=== PATIENT | female | born 1970 | race Caucasian/White ===

== ENCOUNTER 2018-11-12 10:18 | Emergency (ER) | payer MEDICARE ==
[2018-11-12 10:28] VITALS: TEMP 97.7
[2018-11-12] MEDS ORDERED: MORPHINE SULFATE 4 MG/ML SYRINGE IV STA (11:31)
[2018-11-12] MEDS ORDERED: SODIUM CHLORIDE 0.9% 1,000 ML IV STA (11:31)
[2018-11-12] MEDS ORDERED: ONDANSETRON 4 MG/2 ML VIAL IVP STA ×2 (11:31→13:25)
--- NOTE | 2018-11-12 11:51 | ED ---
General Adult HPI - General Chief complaint: Abdominal Pain Stated complaint: Blood in urine Time Seen by Provider: 11/12/18 11:00 Source: patient, family, RN notes reviewed Mode of arrival: ambulatory Limitations: no limitations - History of Present Illness Initial comments: Patient is a 48-year-old female presented to the emergency room today with chief complaint hematuria. Patient does not that last night she noticed some blood in her urine. Patient states that today when she woke up she urinated and saw blood possibly again. She does admit that when she's been ambulation of his increased pressure in the lower pelvis. Patient states when she is laying down she is relatively comfortable. She denies any other complaints or symptoms. Patient denies any recent fever, chills, shortness of breath, chest pain, back pain, nausea or vomiting,headaches or visual changes, or any other complaints. - Related Data Previous Rx's Medication Instructions Recorded Sulfamethox-Tmp 800-160Mg [Bactrim 1 tab PO Q12HR #20 tab 11/12/18 DS 800-160 mg] Allergies Allergy/AdvReac Type Severity Reaction Status Date / Time buprenorphine [From Suboxone] Allergy Swelling Verified 11/12/18 10:29 duloxetine [From Cymbalta] Allergy Confusion Verified 11/12/18 10:29 naloxone [From Suboxone] Allergy Swelling Verified 11/12/18 10:29 NSAIDS (Non-Steroidal Allergy Unknown Verified 11/12/18 10:23 Anti-Inflamma Childhood Review of Systems ROS Statement: Those systems with pertinent positive or pertinent negative responses have been documented in the HPI. ROS Other: All systems not noted in ROS Statement are negative. Past Medical History Past Medical History: Diabetes Mellitus Additional Past Medical History / Comment(s): bowel obstruction, kidney stones History of Any Multi-Drug Resistant Organisms: None Reported Past Surgical History: Back Surgery, Bladder Surgery, Section, Cholecystectomy, Hernia Repair, Orthopedic Surgery Past Psychological History: No Psychological Hx Reported Smoking Status: Current every day smoker Past Alcohol Use History: None Reported Past Drug Use History: None Reported General Exam - General Exam Comments Initial Comments: General: The patient is awake and alert, in no distress, and does not appear acutely ill. Eye: There is normal conjunctiva bilaterally. No signs of icterus. Ears, nose, mouth and throat: There are moist mucous membranes and no oral lesions. Neck: The neck is supple, there is no tenderness or JVD. Cardiovascular: There is a regular rate and rhythm. No murmur, rub or gallop is appreciated. Respiratory: Lungs are clear to auscultation, respirations are non-labored, breath sounds are equal. No wheezes, stridor, rales, or rhonchi. Gastrointestinal: Admits soft on palpation. Patient does have tenderness lower abdomen both left and right lower quadrant. No rebound, guarding or CVA tenderness. Musculoskeletal: Normal ROM, no tenderness. Strength 5/5. Sensation intact. Neurological: A&O x 3. CN II-XII intact, There are no obvious motor or sensory deficits. Coordination appears grossly intact. Speech is normal. Skin: Skin is warm and dry and no rashes or lesions are noted. Psychiatric: Cooperative, appropriate mood & affect, normal judgment. Limitations: no limitations Course Vital Signs 11/12/18 11/12/18 11/12/18 10:23 11:54 13:54 Temperature 97.7 F Pulse Rate 89 79 82 Respiratory 16 18 16 Rate Blood Pressure 151/90 147/78 186/100 O2 Sat by Pulse 98 97 95 Oximetry Medical Decision Making - Medical Decision Making Patient's labs been reviewed here the emergency room and does show evidence for urinary tract infection. Her CT the abdomen pelvis was reviewed and does show: "No evidence of obstruction uropathy. A tiny nonobstructive left renal calculus. Tiny focus of air in the anterior urinary bladder which may be related to her recent insurance mentation or urinary tract infection. Multiple anterior abdominal wall hernias containing loops of small large bowel and intraperitoneal fat." As read by radiologist. Results were discussed with the patient. Given dose Rocephin here in emergency room. Case discussed with attending physician Dr. Aguayo. Patient will be discharged home advised follow-up family doctor over the next 2 days. Advised return here to emergency room if any symptoms increase worsen or for any other concerns. - Lab Data Result diagrams: 11/12/18 11:40 11/12/18 11:40 Lab Results 11/12/18 11/12/18 11/12/18 Range/Units 11:00 11:40 11:40 WBC 11.1 H (3.8-10.6) k/uL RBC 5.08 (3.80-5.40) m/uL Hgb 14.4 (11.4-16.0) gm/dL Hct 43.8 (34.0-46.0) % MCV 86.3 (80.0-100.0) fL MCH 28.4 (25.0-35.0) pg MCHC 32.9 (31.0-37.0) g/dL RDW 13.0 (11.5-15.5) % Plt Count 189 (150-450) k/uL Neutrophils % 79 % Lymphocytes % 16 % Monocytes % 3 % Eosinophils % 1 % Basophils % 0 % Neutrophils # 8.8 H (1.3-7.7) k/uL Lymphocytes # 1.8 (1.0-4.8) k/uL Monocytes # 0.3 (0-1.0) k/uL Eosinophils # 0.2 (0-0.7) k/uL Basophils # 0.0 (0-0.2) k/uL Sodium 140 (137-145) mmol/L Potassium 4.1 (3.5-5.1) mmol/L Chloride 109 H (98-107) mmol/L Carbon Dioxide 21 L (22-30) mmol/L Anion Gap 10 mmol/L BUN 11 (7-17) mg/dL Creatinine 0.36 L (0.52-1.04) mg/dL Est GFR (CKD-EPI)AfAm >90 (>60 ml/min/1.73 sqM) Est GFR (CKD-EPI)NonAf >90 (>60 ml/min/1.73 sqM) Glucose 171 H (74-99) mg/dL Calcium 9.2 (8.4-10.2) mg/dL Total Bilirubin 0.4 (0.2-1.3) mg/dL AST 22 (14-36) U/L ALT 21 (9-52) U/L Alkaline Phosphatase 118 (38-126) U/L Total Protein 6.5 (6.3-8.2) g/dL Albumin 3.9 (3.5-5.0) g/dL Amylase 64 (30-110) U/L Lipase 59 (23-300) U/L Urine Color Light Red Urine Appearance Cloudy H (Clear) Urine pH 6.0 (5.0-8.0) Ur Specific [place] 1.012 (1.001-1.035) Urine Protein 1+ H (Negative) Urine Glucose (UA) Negative (Negative) Urine Ketones Negative (Negative) Urine Blood Large H (Negative) Urine Nitrite Negative (Negative) Urine Bilirubin Negative (Negative) Urine Urobilinogen <2.0 (<2.0) mg/dL Ur Leukocyte Esterase Moderate H (Negative) Urine RBC >182 H (0-5) /hpf Urine WBC 51 H (0-5) /hpf Ur Squamous Epith Cells 4 (0-4) /hpf Urine Bacteria Rare H (None) /hpf Urine Mucus Rare H (None) /hpf Disposition Clinical Impression: UTI (urinary tract infection), Abdominal pain Disposition: HOME SELF-CARE Condition: Good Instructions (If sedation given, give patient instructions): Abdominal Pain (ED) Additional Instructions: Please use medication as discussed. Please follow-up with family doctor in the next 2 days of symptoms have not improved. Please return to emergency room if the symptoms increase or worsen or for any other concerns. Prescriptions: Sulfamethox-Tmp 800-160Mg [Bactrim DS 800-160 mg] 1 tab PO Q12HR #20 tab Is patient prescribed a controlled substance at d/c from ED?: No Referrals: Nonstaff,Physician [Primary Care Provider] - 1-2 days Isaura Jean Baptiste MD [STAFF PHYSICIAN] - 1-2 days Time of Disposition: 14:33
[2018-11-12 11:54] LABS: Appearance,Urine Cloudy (Clear); Bacteria,Urine Rare /hpf; Bilirubin,Urine Negative (Negative); Blood,Urine Large (Negative); Color,Urine Light Red; Glucose,Urine (UA) Negative (Negative); Ketones,Urine Negative (Negative); Leukocyte Esterase,Urine Moderate (Negative); Mucus,Urine Rare /hpf; Nitrite,Urine Negative (Negative); Protein,Urine 1+ (Negative); RBC,Urine >182 /hpf (0-5); Specific Gravity,Urine 1.012 (1.001-1.035); Squamous Epithelial Cell,Urine 4 /hpf (0-4); Urobilinogen,Urine <2.0 mg/dL (<2.0); WBC,Urine 51 /hpf (0-5)
[2018-11-12 12:00] LABS: ALT 21 U/L (9-52); AST 22 U/L (14-36); African American GFR (CKD) >90 (>60 ml/min/1.73 sqM); Albumin 3.9 g/dL (3.5-5.0); Alkaline Phosphatase 118 U/L (38-126); Amylase 64 U/L (30-110); Anion Gap 10 mmol/L; Blood Urea Nitrogen 11 mg/dL (7-17); Calcium 9.2 mg/dL (8.4-10.2); Carbon Dioxide 21 mmol/L (22-30); Chloride 109 mmol/L (98-107); Glucose 171 mg/dL (74-99); Potassium 4.1 mmol/L (3.5-5.1); Sodium 140 mmol/L (137-145); Total Bilirubin 0.4 mg/dL (0.2-1.3); Total Protein 6.5 g/dL (6.3-8.2)
[2018-11-12 12:04] LABS: Basophils % (A) 0 %; Eosinophils # (A) 0.2 k/uL (0-0.7); Eosinophils % (A) 1 %; HCT 43.8 % (34.0-46.0); HGB 14.4 gm/dL (11.4-16.0); Lymphocytes # (A) 1.8 k/uL (1.0-4.8); Lymphocytes % (A) 16 %; MCH 28.4 pg (25.0-35.0); MCHC 32.9 g/dL (31.0-37.0); MCV 86.3 fL (80.0-100.0); Mean Platelet Volume 7.7; Monocytes # (A) 0.3 k/uL (0-1.0); Monocytes % (A) 3 %; Neutrophils # (A) 8.8 k/uL (1.3-7.7); Neutrophils % (A) 79 %; Platelet Count 189 k/uL (150-450); RBC 5.08 m/uL (3.80-5.40); WBC 11.1 k/uL (3.8-10.6)
--- NOTE | 2018-11-12 13:05 | CT ---
EXAMINATION TYPE: CT abdomen pelvis wo con DATE OF EXAM: 11/12/2018 COMPARISON: None HISTORY: Abdominal pain and hematuria. CT DLP: 725.5 mGycm Automated exposure control for dose reduction was used. TECHNIQUE: Helical acquisition of images was performed from the lung bases through the pelvis. FINDINGS: LUNG BASES: Subsegmental bibasilar consolidation. No pleural effusion. LIVER/GB: No significant abnormality is appreciated. Gallbladder is surgically absent. PANCREAS: No significant abnormality is seen. SPLEEN: No significant abnormality is seen. ADRENALS: Fat density left adrenal gland nodule measuring 1.6 cm suggestive of adrenal adenoma. KIDNEYS: No hydronephrosis. No renal edema or perinephric stranding. A few punctate calcifications ar e seen in the left kidney with the largest seen in the inferior pole on axial image 59. FREE AIR: No free air is visualized RETROPERITONEAL ADENOPATHY: None visualized REPRODUCTIVE ORGANS: Uterus appears absent with a few areas of calcification in the right adnexa, whi ch may be postsurgical or atrophied ovary. URINARY BLADDER: Tiny focus of air is seen at the anterior urinary bladder on axial image 126. PELVIC ADENOPATHY: None visualized. OSSEOUS STRUCTURES: L4-5 and L5-S1 lumbar spondylosis. No acute compression deformity. BOWEL: No significant abnormality is seen. OTHER: Ventral midline appear midline abdominal wall hernias containing intraperitoneal fat, transver se colon and small bowel with the largest seen to the right measuring 2.5 x 9.9 x 6.6 cm in AP by tra nsverse dimension. IMPRESSION: NO EVIDENCE OF OBSTRUCTIVE UROPATHY. TINY NONOBSTRUCTIVE LEFT RENAL CALCULUS. TINY FOCUS OF AIR IN THE ANTERIOR URINARY BLADDER WHICH MAY BE RELATED TO RECENT INSTRUMENTATION OR U RINARY TRACT INFECTION. MULTIPLE ANTERIOR ABDOMINAL WALL HERNIAS CONTAINING LOOPS OF THE SMALL AND LARGE BOWEL AND INTRAPERIT ROJO FAT.
[2018-11-12] MEDS ORDERED: cefTRIAXone IN SWFI 1,000 MG/10 ML SYRINGE IVP STA (14:27)
[2018-11-12 15:02] VITALS: RESP 18
[2018-11-12 15:42] VITALS: BP 140/74; PULSE 75
== END 2018-11-12 15:42 | disposition home or self-care (01) ==
LOC: EC 10:18
DX: N39.0 Urinary tract infection, site not specified (principal); N20.0 Calculus of kidney; K46.9 Unspecified abdominal hernia without obstruction or gangrene; F17.200 Nicotine dependence, unspecified, uncomplicated; Z88.5 Allergy status to narcotic agent; Z88.6 Allergy status to analgesic agent; Z88.8 Allergy status to other drugs, medicaments and biological substances; Z98.890 Other specified postprocedural states
CPT/HCPCS: 36415; 80053; 82150; 83690; 85025; 81001; 74176; 99284; 96374; 96375 ×2; 96376; 96361 ×3; J2270; J2405; J0696

== ENCOUNTER 2018-11-18 14:44 | Emergency (ER) | payer MEDICARE ==
[2018-11-18 14:49] VITALS: RESP 18
[2018-11-18] MEDS ORDERED: ONDANSETRON 4 MG/2 ML VIAL IVP STA (16:08)
[2018-11-18] MEDS ORDERED: SODIUM CHLORIDE 0.9% 1,000 ML IV STA (16:08)
[2018-11-18] MEDS ORDERED: MAG HYDROX/AL HYDROX/SIMETH 30 ML, HYOSCYAMINE ELIXIR 10 ML, CIMETIDINE HCL 300 MG, LID... PO STA ×4 (16:09)
[2018-11-18 16:28] LABS: Appearance,Urine Clear (Clear); Bilirubin,Urine Negative (Negative); Blood,Urine Negative (Negative); Color,Urine Light Yellow; Glucose,Urine (UA) Negative (Negative); Ketones,Urine Negative (Negative); Leukocyte Esterase,Urine Negative (Negative); Nitrite,Urine Negative (Negative); PH, Urine 5.5 (5.0-8.0); Protein,Urine Negative (Negative); Specific Gravity,Urine 1.007 (1.001-1.035); Urobilinogen,Urine <2.0 mg/dL (<2.0)
--- NOTE | 2018-11-18 16:29 | ED ---
General Adult HPI - General Chief complaint: Abdominal Pain Stated complaint: Abdominal pain, back pain Time Seen by Provider: 11/18/18 15:51 Source: patient, RN notes reviewed, old records reviewed Mode of arrival: wheelchair Limitations: no limitations - History of Present Illness Initial comments: 48-year-old female patient presents ED chief complaint of epigastric abdominal pain. Patient was initially seen on 11/12 for hematuria which she had a CT ab domen and pelvis which displayed possible urinary tract infection, multiple abdominal wall hernias, nonobstructive left renal calculi. Patient reports that she was seen by urology today and recommended presentation to ER. Patient reports that she is concerned that pain in the epigastric region. Patient port that she has had GERD in the past. Denies any history of pancreatitis. Denies any recent alcohol intake. Patient does report nausea without emesis. States that she cannot be . Denies any chest pain or shortness of breath. Patient is status post cholecystectomy. Systemic: Pt denies fatigue, fever/chills, rash. Pt denies weakness, night sweats, weight loss. Neuro: Pt denies headache, visual disturbances, syncope or pre-syncope. HEENT: Pt denies ocular discharge or irritation, otalgia, rhinorrhea, pharyngitis or notable lymphadenopathy. Cardiopulmonary: Pt denies chest pain, SOB, heart palpitations, dyspnea on exertion. Abdominal/GI: Pt denies n/v/d. : Pt denies dysuria, burning w/ urination, frequency/urgency. Denies new onset urinary or bowel incontinence. MSK: Pt denies myalgia, loss of strength or function in extremities. Neuro: Pt denies new onset weakness, paresthesias. - Related Data Previous Rx's Medication Instructions Recorded Sulfamethox-Tmp 800-160Mg [Bactrim 1 tab PO Q12HR #20 tab 11/12/18 DS 800-160 mg] Pantoprazole Sodium [Protonix] 20 mg PO Q24HR 14 Days #14 11/18/18 tablet. Allergies Allergy/AdvReac Type Severity Reaction Status Date / Time buprenorphine [From Suboxone] Allergy Swelling Verified 11/18/18 14:49 duloxetine [From Cymbalta] Allergy Confusion Verified 11/18/18 14:49 naloxone [From Suboxone] Allergy Swelling Verified 11/18/18 14:49 NSAIDS (Non-Steroidal Allergy Unknown Verified 11/18/18 14:49 Anti-Inflamma Childhood Review of Systems ROS Statement: Those systems with pertinent positive or pertinent negative responses have been documented in the HPI. ROS Other: All systems not noted in ROS Statement are negative. Past Medical History Past Medical History: Diabetes Mellitus Additional Past Medical History / Comment(s): bowel obstruction, kidney stones History of Any Multi-Drug Resistant Organisms: None Reported Past Surgical History: Back Surgery, Bladder Surgery, Section, Cholecystectomy, Hernia Repair, Orthopedic Surgery Past Psychological History: No Psychological Hx Reported Smoking Status: Current every day smoker Past Alcohol Use History: None Reported Past Drug Use History: None Reported General Exam - General Exam Comments Initial Comments: Constitutional: NAD, AOX3, Pt has pleasant affect. HEENT: NC/AT, trachea midline, neck supple, no lymphadenopathy. Posterior pharynx non erythematous, without exudates. External ears appear normal, without discharge. Mucous membranes moist. Eyes PERRLA, EOM intact. There is no scleral icterus. No pallor noted. Cardiopulmonary: RRR, no murmurs, rubs or gallops, no JVD noted. Lungs CTAB in anterior and posterior pimentel. No peripheral edema. Abdominal exam: Abdomen soft and non-distended. Abdomen tender to palpation epigastric region, no other areas of abdominal tenderness. Bowel sounds active in LLQ. No hepatosplenomegaly. No ecchymosis Neuro: CN II-XII grossly intact. No nuchal rigidity. No raccon eyes, no tamayo sign, no hemotympanum. No cervical spinal tenderness. MSK: No posterior calf tenderness bilaterally, homans sign negative bilaterally. Posterior tibialis and radial pulse +2 bilaterally. Sensation intact in upper and lower extremities. Full active ROM in upper and lower extremities, 5/5 stregnth. Limitations: no limitations Course Vital Signs 11/18/18 11/18/18 14:46 17:42 Temperature 97.9 F 98.1 F Pulse Rate 88 63 Respiratory 18 18 Rate Blood Pressure 188/81 104/70 O2 Sat by Pulse 99 100 Oximetry Medical Decision Making - Medical Decision Making 48-year-old female patient presents ED chief complaint of epigastric abdominal pain. Patient was initially seen on 11/12 for hematuria which she had a CT abdomen and pelvis which displayed possible urinary tract infection, multiple abdominal wall hernias, nonobstructive left renal calculi. Patient reports that she was seen by urology today and recommended presentation to ER. Patient reports that she is concerned that pain in the epigastric region. Patient port that she has had GERD in the past. Denies any history of pancreatitis. Denies any recent alcohol intake. Patient does report nausea without emesis. States that she cannot be . Denies any chest pain or shortness of breath. Patient is status post cholecystectomy. Patient vital signs stable, afebrile. Physical exam displayed: Abdomen soft and non-distended. Abdomen tender to palpation epigastric region, no other areas of abdominal tenderness. Bowel sounds active in LLQ. No hepatosplenomegaly. No ecchymosis. Laboratory investigations noncompressive. KUB did not display acute process. Patient minimal improvement GI cocktail, this point repeat CT was offered, patient was advised by risk radiation, patient was understanding, CT abdomen and pelvis was performed and did not display acute process patient including gastritis. Gertrude ent will be discharged with Protonix, GI consult. Case discussed with Dr. Strickland. - Lab Data Result diagrams: 11/18/18 16:25 11/18/18 16:25 Lab Results 11/18/18 11/18/18 11/18/18 Range/Units 16:16 16:25 16:25 WBC 10.9 H (3.8-10.6) k/uL RBC 5.17 (3.80-5.40) m/uL Hgb 14.6 (11.4-16.0) gm/dL Hct 44.1 (34.0-46.0) % MCV 85.3 (80.0-100.0) fL MCH 28.3 (25.0-35.0) pg MCHC 33.2 (31.0-37.0) g/dL RDW 13.2 (11.5-15.5) % Plt Count 235 (150-450) k/uL Neutrophils % 71 % Lymphocytes % 23 % Monocytes % 3 % Eosinophils % 2 % Basophils % 1 % Neutrophils # 7.7 (1.3-7.7) k/uL Lymphocytes # 2.5 (1.0-4.8) k/uL Monocytes # 0.3 (0-1.0) k/uL Eosinophils # 0.2 (0-0.7) k/uL Basophils # 0.1 (0-0.2) k/uL Sodium 137 (137-145) mmol/L Potassium 4.8 (3.5-5.1) mmol/L Chloride 106 (98-107) mmol/L Carbon Dioxide 21 L (22-30) mmol/L Anion Gap 10 mmol/L BUN 13 (7-17) mg/dL Creatinine 0.47 L (0.52-1.04) mg/dL Est GFR (CKD-EPI)AfAm >90 (>60 ml/min/1.73 sqM) Est GFR (CKD-EPI)NonAf >90 (>60 ml/min/1.73 sqM) Glucose 128 H (74-99) mg/dL Plasma Lactic Acid Niels (0.7-2.0) mmol/L Calcium 10.4 H (8.4-10.2) mg/dL Total Bilirubin 0.2 (0.2-1.3) mg/dL AST 22 (14-36) U/L ALT 25 (9-52) U/L Alkaline Phosphatase 148 H (38-126) U/L Total Protein 7.6 (6.3-8.2) g/dL Albumin 4.5 (3.5-5.0) g/dL Lipase 75 (23-300) U/L Urine Color Light Yellow Urine Appearance Clear (Clear) Urine pH 5.5 (5.0-8.0) Ur Specific [place] 1.007 (1.001-1.035) Urine Protein Negative (Negative) Urine Glucose (UA) Negative (Negative) Urine Ketones Negative (Negative) Urine Blood Negative (Negative) Urine Nitrite Negative (Negative) Urine Bilirubin Negative (Negative) Urine Urobilinogen <2.0 (<2.0) mg/dL Ur Leukocyte Esterase Negative (Negative) 11/18/18 Range/Units 16:25 WBC (3.8-10.6) k/uL RBC (3.80-5.40) m/uL Hgb (11.4-16.0) gm/dL Hct (34.0-46.0) % MCV (80.0-100.0) fL MCH (25.0-35.0) pg MCHC (31.0-37.0) g/dL RDW (11.5-15.5) % Plt Count (150-450) k/uL Neutrophils % % Lymphocytes % % Monocytes % % Eosinophils % % Basophils % % Neutrophils # (1.3-7.7) k/uL Lymphocytes # (1.0-4.8) k/uL Monocytes # (0-1.0) k/uL Eosinophils # (0-0.7) k/uL Basophils # (0-0.2) k/uL Sodium (137-145) mmol/L Potassium (3.5-5.1) mmol/L Chloride (98-107) mmol/L Carbon Dioxide (22-30) mmol/L Anion Gap mmol/L BUN (7-17) mg/dL Creatinine (0.52-1.04) mg/dL Est GFR (CKD-EPI)AfAm (>60 ml/min/1.73 sqM) Est GFR (CKD-EPI)NonAf (>60 ml/min/1.73 sqM) Glucose (74-99) mg/dL Plasma Lactic Acid Niels 1.8 (0.7-2.0) mmol/L Calcium (8.4-10.2) mg/dL Total Bilirubin (0.2-1.3) mg/dL AST (14-36) U/L ALT (9-52) U/L Alkaline Phosphatase (38-126) U/L Total Protein (6.3-8.2) g/dL Albumin (3.5-5.0) g/dL Lipase (23-300) U/L Urine Color Urine Appearance (Clear) Urine pH (5.0-8.0) Ur Specific [place] (1.001-1.035) Urine Protein (Negative) Urine Glucose (UA) (Negative) Urine Ketones (Negative) Urine Blood (Negative) Urine Nitrite (Negative) Urine Bilirubin (Negative) Urine Urobilinogen (<2.0) mg/dL Ur Leukocyte Esterase (Negative) Disposition Clinical Impression: Gastritis, Abdominal pain Disposition: HOME SELF-CARE Condition: Stable Instructions (If sedation given, give patient instructions): Abdominal Pain (ED), Gastritis (ED) Additional Instructions: Patient to adhere to previously discussed treatment plan and will take medication(s) as directed. Patient to follow up with PCP in 1-2 days. Patient to return to ED if symptoms do not improve. follow-up with primary care provider and GI consult tomorrow. Return to ER if condition worsens. Take medication as prescribed. Prescriptions: Pantoprazole Sodium [Protonix] 20 mg PO Q24HR 14 Days #14 tablet.dr Is patient prescribed a controlled substance at d/c from ED?: No Referrals: Isaura Jean Baptiste MD [Primary Care Provider] - 1-2 days Mellissa Patricia MD [STAFF PHYSICIAN] - 1-2 days
[2018-11-18 16:47] LABS: Basophils # (A) 0.1 k/uL (0-0.2); Basophils % (A) 1 %; Eosinophils # (A) 0.2 k/uL (0-0.7); Eosinophils % (A) 2 %; HCT 44.1 % (34.0-46.0); HGB 14.6 gm/dL (11.4-16.0); Lymphocytes # (A) 2.5 k/uL (1.0-4.8); Lymphocytes % (A) 23 %; MCH 28.3 pg (25.0-35.0); MCHC 33.2 g/dL (31.0-37.0); MCV 85.3 fL (80.0-100.0); Mean Platelet Volume 7.8; Monocytes # (A) 0.3 k/uL (0-1.0); Monocytes % (A) 3 %; Neutrophils # (A) 7.7 k/uL (1.3-7.7); Neutrophils % (A) 71 %; Platelet Count 235 k/uL (150-450); RBC 5.17 m/uL (3.80-5.40); RDW 13.2 % (11.5-15.5); WBC 10.9 k/uL (3.8-10.6)
[2018-11-18 16:53] LABS: ALT 25 U/L (9-52); AST 22 U/L (14-36); African American GFR (CKD) >90 (>60 ml/min/1.73 sqM); Albumin 4.5 g/dL (3.5-5.0); Alkaline Phosphatase 148 U/L (38-126); Anion Gap 10 mmol/L; Blood Urea Nitrogen 13 mg/dL (7-17); Calcium 10.4 mg/dL (8.4-10.2); Carbon Dioxide 21 mmol/L (22-30); Chloride 106 mmol/L (98-107); Glucose 128 mg/dL (74-99); Potassium 4.8 mmol/L (3.5-5.1); Sodium 137 mmol/L (137-145); Total Bilirubin 0.2 mg/dL (0.2-1.3); Total Protein 7.6 g/dL (6.3-8.2)
--- NOTE | 2018-11-18 17:11 | XR ---
EXAMINATION TYPE: XR KUB DATE OF EXAM: 11/18/2018 COMPARISON: NONE HISTORY: Abdominal pain TECHNIQUE: 2 views upright FINDINGS: There is no sign of intestinal obstruction or pneumoperitoneum. Fecal pattern is normal. Th ere are clips from cholecystectomy. There is no sign of a mass. IMPRESSION: Nonacute abdomen.
--- NOTE | 2018-11-18 18:14 | CT ---
EXAMINATION TYPE: CT abdomen pelvis w con DATE OF EXAM: 11/18/2018 COMPARISON: 11/12/2018 HISTORY: Mid to right sided abd and flank pain. Nausea, vomiting and diarrhea. CT DLP: 1452.5 mGycm Automated exposure control for dose reduction was used. TECHNIQUE: Helical acquisition of images was performed from the lung bases through the pelvis. CONTRAST: Performed without Oral Contrast and with IV Contrast, patient injected with 100 mL of Isovue 300. FINDINGS: There is mild interstitial infiltrate and atelectasis at the posterior lung bases. Stomach appears no rmal. Heart size is normal. Liver spleen pancreas appear normal. There are clips from cholecystectomy. Bile ducts are not dilated . There is some thickening of the right adrenal gland. Kidneys show satisfactory contrast opacificati on. There is no hydronephrosis. There is 1.5 cm cortical cyst lateral right kidney. Abdominal aorta i s atheromatous. There is broad-based ventral hernia that contains transverse colon. There is no incar ceration. There is a second midline ventral abdominal wall hernia that contains small bowel. No obstr uction. Bladder distends smoothly. There is no inguinal hernia. There is no free fluid in the pelvis. Appendi x appears normal. There is no mesenteric edema. There is no ascites or free air. There is degenerative disc space narro wing at L4-5 with osteosclerosis. I see no bony destructive process. Bony pelvis appears intact. Ther e is L5-S1 posterior lumbar disc herniation. There is posterior L4-5 lumbar disc herniation on the le ft side. IMPRESSION: VENTRAL ANTERIOR ABDOMINAL WALL HERNIAS. NO CHANGE. NO BOWEL OBSTRUCTION. ATHEROSCLEROTIC VASCULAR DI SEASE. NORMAL APPENDIX. SUBSEGMENTAL ATELECTASIS AT THE LUNG BASES IMPROVED COMPARED TO LAST EXAM.
--- NOTE | 2018-11-18 18:47 | ED ---
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 Return precautions discussed. - Lab Data Result diagrams: 11/18/18 16:25 11/18/18 16:25 Lab Results 11/18/18 11/18/18 11/18/18 Range/Units 16:16 16:25 16:25 WBC 10.9 H (3.8-10.6) k/uL RBC 5.17 (3.80-5.40) m/uL Hgb 14.6 (11.4-16.0) gm/dL Hct 44.1 (34.0-46.0) % MCV 85.3 (80.0-100.0) fL MCH 28.3 (25.0-35.0) pg MCHC 33.2 (31.0-37.0) g/dL RDW 13.2 (11.5-15.5) % Plt Count 235 (150-450) k/uL Neutrophils % 71 % Lymphocytes % 23 % Monocytes % 3 % Eosinophils % 2 % Basophils % 1 % Neutrophils # 7.7 (1.3-7.7) k/uL Lymphocytes # 2.5 (1.0-4.8) k/uL Monocytes # 0.3 (0-1.0) k/uL Eosinophils # 0.2 (0-0.7) k/uL Basophils # 0.1 (0-0.2) k/uL Sodium 137 (137-145) mmol/L Potassium 4.8 (3.5-5.1) mmol/L Chloride 106 (98-107) mmol/L Carbon Dioxide 21 L (22-30) mmol/L Anion Gap 10 mmol/L BUN 13 (7-17) mg/dL Creatinine 0.47 L (0.52-1.04) mg/dL Est GFR (CKD-EPI)AfAm >90 (>60 ml/min/1.73 sqM) Est GFR (CKD-EPI)NonAf >90 (>60 ml/min/1.73 sqM) Glucose 128 H (74-99) mg/dL Plasma Lactic Acid Niels (0.7-2.0) mmol/L Calcium 10.4 H (8.4-10.2) mg/dL Total Bilirubin 0.2 (0.2-1.3) mg/dL AST 22 (14-36) U/L ALT 25 (9-52) U/L Alkaline Phosphatase 148 H (38-126) U/L Total Protein 7.6 (6.3-8.2) g/dL Albumin 4.5 (3.5-5.0) g/dL Lipase 75 (23-300) U/L Urine Color Light Yellow Urine Appearance Clear (Clear) Urine pH 5.5 (5.0-8.0) Ur Specific Wallace 1.007 (1.001-1.035) Urine Protein Negative (Negative) Urine Glucose (UA) Negative (Negative) Urine Ketones Negative (Negative) Urine Blood Negative (Negative) Urine Nitrite Negative (Negative) Urine Bilirubin Negative (Negative) Urine Urobilinogen <2.0 (<2.0) mg/dL Ur Leukocyte Esterase Negative (Negative) 11/18/18 Range/Units 16:25 WBC (3.8-10.6) k/uL RBC (3.80-5.40) m/uL Hgb (11.4-16.0) gm/dL Hct (34.0-46.0) % MCV (80.0-100.0) fL MCH (25.0-35.0) pg MCHC (31.0-37.0) g/dL RDW (11.5-15.5) % Plt Count (150-450) k/uL Neutrophils % % Lymphocytes % % Monocytes % % Eosinophils % % Basophils % % Neutrophils # (1.3-7.7) k/uL Lymphocytes # (1.0-4.8) k/uL Monocytes # (0-1.0) k/uL Eosinophils # (0-0.7) k/uL Basophils # (0-0.2) k/uL Sodium (137-145) mmol/L Potassium (3.5-5.1) mmol/L Chloride (98-107) mmol/L Carbon Dioxide (22-30) mmol/L Anion Gap mmol/L BUN (7-17) mg/dL Creatinine (0.52-1.04) mg/dL Est GFR (CKD-EPI)AfAm (>60 ml/min/1.73 sqM) Est GFR (CKD-EPI)NonAf (>60 ml/min/1.73 sqM) Glucose (74-99) mg/dL Plasma Lactic Acid Niels 1.8 (0.7-2.0) mmol/L Calcium (8.4-10.2) mg/dL Total Bilirubin (0.2-1.3) mg/dL AST (14-36) U/L ALT (9-52) U/L Alkaline Phosphatase (38-126) U/L Total Protein (6.3-8.2) g/dL Albumin (3.5-5.0) g/dL Lipase (23-300) U/L Urine Color Urine Appearance (Clear) Urine pH (5.0-8.0) Ur Specific Wallace (1.001-1.035) Urine Protein (Negative) Urine Glucose (UA) (Negative) Urine Ketones (Negative) Urine Blood (Negative) Urine Nitrite (Negative) Urine Bilirubin (Negative) Urine Urobilinogen (<2.0) mg/dL Ur Leukocyte Esterase (Negative) Disposition Clinical Impression: Gastritis, Abdominal pain Disposition: HOME SELF-CARE Condition: Stable Instructions (If sedation given, give patient instructions): Gastritis (ED), Abdominal Pain (ED) Additional Instructions: Patient to adhere to previously discussed treatment plan and will take medication(s) as directed. Patient to follow up with PCP in 1-2 days. Patient to return to ED if symptoms do not improve. follow-up with primary care provider and GI consult tomorrow. Return to ER if condition worsens. Take medication as prescribed. Prescriptions: Pantoprazole Sodium [Protonix] 20 mg PO Q24HR 14 Days #14 tablet.dr Is patient prescribed a controlled substance at d/c from ED?: No Referrals: Isaura Jean Baptiste MD [Primary Care Provider] - 1-2 days Mellissa Patricia MD [STAFF PHYSICIAN] - 1-2 days
[2018-11-18 21:49] VITALS: BP 161/74; PULSE 78; TEMP 98.3
== END 2018-11-18 19:06 | disposition home or self-care (01) ==
LOC: EC 14:44
DX: K29.70 Gastritis, unspecified, without bleeding (principal); F17.200 Nicotine dependence, unspecified, uncomplicated; Z88.6 Allergy status to analgesic agent; Z88.8 Allergy status to other drugs, medicaments and biological substances; Z90.49 Acquired absence of other specified parts of digestive tract
CPT/HCPCS: 36415; 80053; 83605; 83690; 85025; 81003; 74018; 74177; 99285; 96374; 96361; J2405; Q9967

== ENCOUNTER → 2018-11-30 | Outpatient (CLI) | payer MEDICARE ==
[2018-11-30 08:03] LABS: Basophils # (A) 0.1 k/uL (0-0.2); Basophils % (A) 1 %; Eosinophils # (A) 0.2 k/uL (0-0.7); Eosinophils % (A) 3 %; HCT 41.2 % (34.0-46.0); HGB 13.5 gm/dL (11.4-16.0); Lymphocytes # (A) 1.9 k/uL (1.0-4.8); Lymphocytes % (A) 28 %; MCH 28.4 pg (25.0-35.0); MCHC 32.7 g/dL (31.0-37.0); MCV 86.9 fL (80.0-100.0); Mean Platelet Volume 8.3; Monocytes # (A) 0.3 k/uL (0-1.0); Monocytes % (A) 4 %; Neutrophils # (A) 4.3 k/uL (1.3-7.7); Neutrophils % (A) 62 %; Platelet Count 209 k/uL (150-450); RBC 4.74 m/uL (3.80-5.40); RDW 14.5 % (11.5-15.5); WBC 6.9 k/uL (3.8-10.6)
[2018-11-30 08:24] LABS: Appearance,Urine Cloudy (Clear); Bacteria,Urine Rare /hpf; Bilirubin,Urine Negative (Negative); Blood,Urine Negative (Negative); Color,Urine Yellow; Glucose,Urine (UA) 4+ (Negative); Ketones,Urine Negative (Negative); Leukocyte Esterase,Urine Moderate (Negative); Mucus,Urine Rare /hpf; Nitrite,Urine Negative (Negative); Protein,Urine Negative (Negative); RBC,Urine 7 /hpf (0-5); Specific Gravity,Urine 1.024 (1.001-1.035); Squamous Epithelial Cell,Urine 9 /hpf (0-4); Urobilinogen,Urine <2.0 mg/dL (<2.0); WBC,Urine 72 /hpf (0-5)
[2018-11-30 17:56] LABS: ALT 30 U/L (8-44); AST 23 U/L (13-35); Albumin/Globulin Ratio 2.33 (1.60-3.17); Alkaline Phosphatase 147 U/L (41-126); BUN/Creat Ratio 23.33 Ratio (12.00-20.00); Calcium 9.1 mg/dL (8.7-10.3); Carbon Dioxide 21.9 mmol/L (21.6-31.8); Chloride 108 mmol/L (96-109); Cholesterol 260 mg/dL (0-200); Globulin 1.8 g/dL (1.6-3.3); Glucose 257 mg/dL (70-110); Potassium 4.1 mmol/L (3.5-5.5); Sodium 139 mmol/L (135-145); Total Bilirubin 0.2 mg/dL (0.2-1.2)
[2018-11-30 19:01] LABS: Hemoglobin A1C 10.1 % (4.0-6.0)
== END ==
LOC: LABWHC1 07:34
PROVIDERS: ATTEND Family Medicine
DX: E11.9 Type 2 diabetes mellitus without complications (principal); R31.0 Gross hematuria
CPT/HCPCS: 36415; 80053; 80061; 81001; 82043; 82570; 83036; 83721; 85025

== ENCOUNTER 2020-12-29 18:14 | Inpatient (IN) | payer MEDICARE, OTHER ==
--- NOTE | 2020-12-29 19:37 | ED ---
General Adult HPI - General Chief complaint: Extremity Problem,Nontraumatic Stated complaint: back pain; lower extremity swelling Time Seen by Provider: 12/29/20 19:17 Source: patient Mode of arrival: wheelchair Limitations: no limitations - History of Present Illness Initial comments: Dictation was produced using [employer] dictation software. please excuse any grammatical, word or spelling errors. Chief Complaint: 50-year-old female presents with right foot pain History of Present Illness: 50-year-old female she has past medical history of diabetes. Patient states she is here in the emergency department for right foot pain. Patient states that for 5 days ago she thought that she developed a sore on her right foot from the shoe. Patient denies any constitutional symptoms. Patient does not have a history of diabetic foot ulcers. States that her whole foot is painful. States that she can barely walk or put on any footwear. The ROS documented in this emergency department record has been reviewed and confirmed by me. Those systems with pertinent positive or negative responses have been documented in the HPI. All other systems are other negative and/or noncontributory. PHYSICAL EXAM: General Impression: Alert and oriented x3, not in acute distress HEENT: Normocephalic atraumatic, extra-ocular movements intact, pupils equal and reactive to light bilaterally, mucous membranes moist. Cardiovascular: Heart regular rate and rhythm Chest: Able to complete full sentences, no retractions, no tachypnea Musculoskeletal: Pulses present and equal in all extremities, 1+ pitting edema to bilateral lower extremities Right foot: there is a probing 1 cm wound to the right lateral plantar surface of the foot. There is mild erythema surrounding. ED course: 72-year-old female presents to the emergency department for right- sided foot pain. She does have a diabetic foot ulcer with some significant tenderness and surrounding erythema. Vital signs upon arrival shows findings within acceptable limits. Laboratory evaluation obtained. CBC unremarkable. No leukocytosis. Metabolic panel is normal. CRP is slightly elevated 1.6. X-ray does not suggest osteomyelitis. Patient states that her pain is severe. She does have findings of diabetic foot ulcer. There is concern of worsening infection. There is drainage. Given patient's clinical presentation she'll be admitted observation. Vancomycin was ordered. Infectious disease consulted. Case discussed with Dr. Carvajal. - Related Data Previous Rx's Medication Instructions Recorded Sulfamethox-Tmp 800-160Mg [Bactrim 1 tab PO Q12HR #20 tab 11/12/18 DS 800-160 mg] Pantoprazole Sodium [Protonix] 20 mg PO Q24HR 14 Days #14 11/18/18 tablet. Allergies Allergy/AdvReac Type Severity Reaction Status Date / Time buprenorphine [From Suboxone] Allergy Swelling Verified 12/29/20 18:54 duloxetine [From Cymbalta] Allergy Confusion Verified 12/29/20 18:54 naloxone [From Suboxone] Allergy Swelling Verified 12/29/20 18:54 NSAIDS (Non-Steroidal Allergy Unknown Verified 12/29/20 18:54 Anti-Inflamma Childhood Review of Systems ROS Statement: Those systems with pertinent positive or pertinent negative responses have been documented in the HPI. ROS Other: All systems not noted in ROS Statement are negative. Past Medical History Past Medical History: Diabetes Mellitus Additional Past Medical History / Comment(s): bowel obstruction, kidney stones History of Any Multi-Drug Resistant Organisms: None Reported Past Surgical History: Back Surgery, Bladder Surgery, Section, Cholecystectomy, Hernia Repair, Orthopedic Surgery Past Psychological History: No Psychological Hx Reported Smoking Status: Current every day smoker Past Alcohol Use History: Rare Past Drug Use History: None Reported General Exam Limitations: no limitations Course Vital Signs 12/29/20 18:53 Temperature 98.5 F Pulse Rate 92 Respiratory 16 Rate Blood Pressure 159/80 O2 Sat by Pulse 97 Oximetry Medical Decision Making - Lab Data Result diagrams: 12/29/20 20:00 12/29/20 20:00 Lab Results 12/29/20 12/29/20 Range/Units 20:00 20:00 WBC 10.1 (3.8-10.6) k/uL RBC 5.07 (3.80-5.40) m/uL Hgb 14.1 (11.4-16.0) gm/dL Hct 43.3 (34.0-46.0) % MCV 85.4 (80.0-100.0) fL MCH 27.7 (25.0-35.0) pg MCHC 32.5 (31.0-37.0) g/dL RDW 13.4 (11.5-15.5) % Plt Count 237 (150-450) k/uL MPV 8.6 Neutrophils % 70 % Lymphocytes % 23 % Monocytes % 4 % Eosinophils % 1 % Basophils % 1 % Neutrophils # 7.0 (1.3-7.7) k/uL Lymphocytes # 2.3 (1.0-4.8) k/uL Monocytes # 0.4 (0-1.0) k/uL Eosinophils # 0.1 (0-0.7) k/uL Basophils # 0.1 (0-0.2) k/uL Sodium 132 L (137-145) mmol/L Potassium 4.5 (3.5-5.1) mmol/L Chloride 102 (98-107) mmol/L Carbon Dioxide 23 (22-30) mmol/L Anion Gap 7 mmol/L BUN 12 (7-17) mg/dL Creatinine 0.34 L (0.52-1.04) mg/dL Est GFR (CKD-EPI)AfAm >90 (>60 ml/min/1.73 sqM) Est GFR (CKD-EPI)NonAf >90 (>60 ml/min/1.73 sqM) Glucose 303 H (74-99) mg/dL Calcium 9.4 (8.4-10.2) mg/dL C-Reactive Protein 1.6 H (<1.0) mg/dL Disposition Clinical Impression: Diabetic foot ulcer Disposition: ADMITTED IP TO THIS HOSP Condition: Fair Referrals: None,Stated [Primary Care Provider] - 1-2 days
[2020-12-29 20:22] LABS: Basophils # (A) 0.1 k/uL (0-0.2); Basophils % (A) 1 %; Eosinophils # (A) 0.1 k/uL (0-0.7); Eosinophils % (A) 1 %; HCT 43.3 % (34.0-46.0); HGB 14.1 gm/dL (11.4-16.0); Lymphocytes # (A) 2.3 k/uL (1.0-4.8); Lymphocytes % (A) 23 %; MCH 27.7 pg (25.0-35.0); MCHC 32.5 g/dL (31.0-37.0); MCV 85.4 fL (80.0-100.0); Mean Platelet Volume 8.6; Monocytes # (A) 0.4 k/uL (0-1.0); Monocytes % (A) 4 %; Neutrophils % (A) 70 %; Platelet Count 237 k/uL (150-450); RBC 5.07 m/uL (3.80-5.40); RDW 13.4 % (11.5-15.5); WBC 10.1 k/uL (3.8-10.6)
--- NOTE | 2020-12-29 20:34 | XR ---
EXAMINATION TYPE: XR foot complete RT DATE OF EXAM: 12/29/2020 COMPARISON: NONE HISTORY: Pain and swelling TECHNIQUE: 3 views FINDINGS: Metatarsals are intact. I see no fracture nor dislocation. Joint spaces are normal. IMPRESSION: Negative right foot exam. No fracture.
[2020-12-29 20:42] LABS: African American GFR (CKD) >90 (>60 ml/min/1.73 sqM); Anion Gap 7 mmol/L; Blood Urea Nitrogen 12 mg/dL (7-17); C Reactive Protein 1.6 mg/dL (<1.0); Calcium 9.4 mg/dL (8.4-10.2); Carbon Dioxide 23 mmol/L (22-30); Chloride 102 mmol/L (98-107); Glucose 303 mg/dL (74-99); Non-African American GFR(CKD) >90 (>60 ml/min/1.73 sqM); Potassium 4.5 mmol/L (3.5-5.1); Sodium 132 mmol/L (137-145)
[2020-12-29] MEDS ORDERED: VANCOMYCIN IV PER PHARMACY 1 EACH MISC MISCELLANE PRN (20:48)
[2020-12-29] MEDS ORDERED: ONDANSETRON 4 MG/2 ML VIAL IVP PRN (20:48)
[2020-12-29] MEDS ORDERED: NALOXONE 0.4 MG/ML 1 ML VIAL IV PRN (20:48)
[2020-12-29] MEDS ORDERED: VANCOMYCIN 1,500 MG in SODIUM CHLORIDE 0.9% 250 ML IVPB ONE (21:30)
[2020-12-29] MEDS: MORPHINE SULFATE 4 MG/ML SYRINGE IV PRN (21:43)
[2020-12-30] MEDS: MORPHINE SULFATE 4 MG/ML SYRINGE IV PRN ×6 (01:27→21:43)
[2020-12-30] MEDS: VANCOMYCIN 1,500 MG in SODIUM CHLORIDE 0.9% 250 ML IVPB SCH ×3 (05:26→21:47)
[2020-12-30 07:01] LABS: Glucose,Whole Blood 221 mg/dL (75-99)
[2020-12-30] MEDS: INSULIN ASPART (NovoLOG) 100 UNIT/ML VIAL SQ SCH ×4 (07:05→20:32)
[2020-12-30 12:21] LABS: Glucose,Whole Blood 155 mg/dL (75-99)
[2020-12-30] MEDS: NICOTINE 14MG/24HR PATCH TRANSDERM SCH (14:29)
[2020-12-30] MEDS: PREGABALIN 100 MG CAP PO SCH ×2 (14:29→21:43)
[2020-12-30] MEDS ORDERED: KETOROLAC 15 MG/ML 1 ML VIAL IVP PRN (15:11)
--- NOTE | 2020-12-30 15:17 | P.HPIM ---
History of Present Illness 50-year-old female with known history of diabetes mellitus and patient believes she has diet-controlled diabetes mellitus came in with the also on the lateral aspect of the right foot as well as an ulcer on the anterior abdominal wall on the left side lower abdomen. Both of these are around stage 3-4 ulcer appeared to be infected.. Patient is also complaining of swelling in the right leg. Patient was comparing of intractable pain along with neuropathic symptoms. Wound cultures were obtained patient was started on vancomycin infectious disease was consulted. REVIEW OF SYSTEMS: CONSTITUTIONAL: No fever, no malaise, no fatigue. HEENT: No recent visual problems or hearing problems. Denied any sore throat. CARDIOVASCULAR: No chest pain, orthopnea, PND, no palpitations, no syncope. PULMONARY: No shortness of breath, no cough, no hemoptysis. GASTROINTESTINAL: No diarrhea, no nausea, no vomiting, no abdominal pain. NEUROLOGICAL: No headaches, no weakness, no numbness. HEMATOLOGICAL: Denies any bleeding or petechiae. GENITOURINARY: Denies any burning micturition, frequency, or urgency. MUSCULOSKELETAL/RHEUMATOLOGICAL: Denies any joint pain, swelling, or any muscle pain. ENDOCRINE: Denies any polyuria or polydipsia. The rest of the 14-point review of systems is negative. PHYSICAL EXAMINATION: GENERAL: The patient is alert and oriented x3, not in any acute distress. Well developed, well nourished. HEENT: Pupils are round and equally reacting to light. EOMI. No scleral icterus. No conjunctival pallor. Normocephalic, atraumatic. No pharyngeal erythema. No thyromegaly. CARDIOVASCULAR: S1 and S2 present. No murmurs, rubs, or gallops. PULMONARY: Chest is clear to auscultation, no wheezing or crackles. ABDOMEN: Soft, nontender, nondistended, normoactive bowel sounds. No palpable organomegaly. MUSCULOSKELETAL: No joint swelling or deformity. EXTREMITIES: No cyanosis, clubbing, or pedal edema. NEUROLOGICAL: Gross neurological examination did not reveal any focal deficits. SKIN: As mentioned above patient has a stage 3-4 ulcers in the right foot as well as left anterior abdominal wall both of which is cleared to be infected but the right foot ulcer is clean based abdominal ulcer has some purulent discharge. Assessment and plan -Infected diabetic foot as well as abdominal wall ulcer: Continue vancomycin infectious disease will evaluate the patient won't cultures will be obtained -Uncontrolled type 2 diabetes mellitus patient doesn't use any medications at home patient will need oral hypoglycemic agents for now will continue sliding scale insulin, will obtain hemoglobin A1c. -Pseudohyponatremia from hyperglycemia -Swelling of the right leg will obtain a venous Doppler of the right lower extremity. Foot x-ray did not show any osteoarthritis -Nicotine use: Counseling was provided will order 40 g of nicotine patch patient smokes about half a pack of cigarettes per day DVT prophylaxis: Lovenox Past Medical History Past Medical History: Diabetes Mellitus Additional Past Medical History / Comment(s): bowel obstruction, kidney stones History of Any Multi-Drug Resistant Organisms: None Reported Past Surgical History: Back Surgery, Bladder Surgery, Section, Cholecystectomy, Hernia Repair, Orthopedic Surgery Past Psychological History: No Psychological Hx Reported Smoking Status: Current every day smoker Past Alcohol Use History: Rare Past Drug Use History: None Reported Medications and Allergies Home Medications Medication Instructions Recorded Confirmed Type Omeprazole 20 mg PO HS 12/29/20 12/29/20 History Allergies Allergy/AdvReac Type Severity Reaction Status Date / Time buprenorphine [From Suboxone] Allergy Swelling Verified 12/29/20 21:06 duloxetine [From Cymbalta] Allergy Confusion Verified 12/29/20 21:06 naloxone [From Suboxone] Allergy Swelling Verified 12/29/20 21:06 NSAIDS (Non-Steroidal Allergy Unknown Verified 12/29/20 21:06 Anti-Inflamma Childhood Physical Exam Vitals: Vital Signs Temp Pulse Pulse Resp BP BP Pulse Ox 12/30/20 14:00 97.8 F 92 18 147/79 94 L 12/30/20 07:00 97.0 F L 91 18 171/82 96 12/30/20 02:00 98 F 98 18 155/83 92 L 12/29/20 21:39 98.5 F 85 20 159/77 95 12/29/20 18:53 98.5 F 92 16 159/80 97 Intake and Output 12/30/20 12/30/20 12/30/20 06:59 14:59 22:59 Intake Total 250 480 Balance 250 480 Intake: Intake, IV Titration 250 Amount Vancomycin 1,500 mg In 250 Sodium Chloride 0.9% 250 ml @ 125 mls/hr IVPB ONCE ONE Rx#:[id number] Oral 480 Other: Voiding Method Toilet # Voids 3 2 Results CBC & Chem 7: 12/29/20 20:00 12/29/20 20:00 Labs: Abnormal Lab Results - Last 24 Hours (Table) 12/29/20 12/30/20 12/30/20 Range/Units 20:00 06:45 12:15 Sodium 132 L (137-145) mmol/L Creatinine 0.34 L (0.52-1.04) mg/dL Glucose 303 H (74-99) mg/dL POC Glucose (mg/dL) 221 H 155 H (75-99) mg/dL C-Reactive Protein 1.6 H (<1.0) mg/dL
--- NOTE | 2020-12-30 16:43 | US ---
EXAMINATION TYPE: US venous doppler duplex LE RT DATE OF EXAM: 12/30/2020 2:35 PM COMPARISON: NONE CLINICAL HISTORY: rule out DVT swelling in right leg. Right leg redness, pain, open wounds SIDE PERFORMED: Right TECHNIQUE: The lower extremity deep venous system is examined utilizing real time linear array sonog [place] with graded compression, doppler sonography and color-flow sonography. VESSELS IMAGED: Common Femoral Vein Deep Femoral Vein Greater Saphenous Vein * Femoral Vein Popliteal Vein Small Saphenous Vein * Proximal Calf Veins (* superficial vessels) Right Leg: Negative for DVT Incidental finding possible right femoral ARTERY occlusion IMPRESSION: No evidence of deep vein thrombosis in the right leg. There is evidence for right femoral artery thrombosis.
[2020-12-30] MEDS: HYDROcodone/APAP 7.5-325MG 1 EACH TAB PO PRN (16:47)
[2020-12-30 17:25] LABS: Glucose,Whole Blood 198 mg/dL (75-99)
[2020-12-30 20:09] LABS: Glucose,Whole Blood 257 mg/dL (75-99)
[2020-12-30] MEDS: FAMOTIDINE 20 MG TAB PO SCH ×2 (20:32)
--- NOTE | 2020-12-30 23:36 | P.CONS ---
History of Present Illness - Reason for Consult Consult date: 12/30/20 right foot ulcer and cellulitis Requesting physician: Brijesh Miller - Chief Complaint right foot ulcer and pain x 5 days - History of Present Illness History of present illness : Patient is 50-year-old female presenting to the ER last night for evaluation of right foot pain patient symptoms started about 5 days ago and the patient developed a sore on the right foot lateral border she thought was from rubbing from the shoe she been complaining of pain to the right foot also area to be sharp 6-7 out of 10 there is no drainage from it the patient did have a pain on walking patient also noticed to have a 2 small abscesses on abdominal wall by the nursing staff with the patient says she has for a couple of days prior to her right foot also started patient on presentation to the hospital was afebrile and did not have any fever afterwards patient did have a hemoglobin A1c of 11.8 did have a normal white count kidney function was normal CRP was 1.6 martini PCR was negative patient did have x-rays of the right foot which was negative for any fracture patient was started on vancomycin infectious disease was consulted for further management of antibiotic therapy Review of system: CONSTITUTIONAL: Positive for weakness denies high-grade fever. EYES: No complaint. ENT: No complaint. RESPIRATORY: No complaint. CARDIOVASCULAR: No complaint. GENITOURINARY: No complaint. GASTROINTESTINAL: As per history of present illness. MUSCULOSKELETAL: No complaint. INTEGUMENTARY: As per history of present illness. PSYCHOLOGIC: No complaint. ENDOCRINE: No complaint. NEUROLOGIC: No complaint. Past medical history : Reviewed, documented below Past surgical history : Reviewed, documented below Social history: Reviewed, documented below Medications: Reviewed, as documented below EXAMINATION: Vital sigans= Reviewed and documented below GENERAL DESCRIPTION: Middle-aged female lying in bed, no distress. No tachypnea or accessory muscle of respiration use. HEENT: Shows Pallor , no scleral icterus. Oral mucous membrane is dry. NECK: Trachea central, no thyromegaly. LUNGS: Unlabored breathing. Clear to auscultation anteriorly. No wheeze or crackle. HEART: S1, S2, regular rate and rhythm. ABDOMEN: Soft, no tenderness , guarding or rigidity EXTREMITIES: No edema of feet. Right foot lateral border did have a ulceration with some slough tissue surrounding swelling redness no foul-smelling drainage SKIN: No rash, no masses palpable. Patient did have a 2 superficial ulceration to the abdominal wall with slough tissue no significant redness or drainage NEUROLOGICAL: The patient is awake, alert, oriented x3, mood and affect normal. LABS AND RADIOLOGY: Reviewed results see below Assessment : Patient presented to hospital with right foot pain and ulceration in this patient also have 2 small superficial abscess on abdominal wall more likely staphylococcal disease concern for possible community associated MRSA x- rays of the foot were negative for any bony abnormality Plan: 1-vancomycin pharmacy to dose with a target trough of 15 while watching kidney function and Vanco trough closely. 2-local wound care with [facility] followed by moist dressing We will follow on clinical condition and cultures to further adjust medication if needed Thank you for this consultation we will follow the patient along with you Past Medical History Past Medical History: Diabetes Mellitus Additional Past Medical History / Comment(s): bowel obstruction, kidney stones History of Any Multi-Drug Resistant Organisms: None Reported Past Surgical History: Back Surgery, Bladder Surgery, Section, Cholecystectomy, Hernia Repair, Orthopedic Surgery Past Psychological History: No Psychological Hx Reported Smoking Status: Current every day smoker Past Alcohol Use History: Rare Past Drug Use History: None Reported Medications and Allergies Home Medications Medication Instructions Recorded Confirmed Type Omeprazole 20 mg PO HS 12/29/20 12/29/20 History Allergies Allergy/AdvReac Type Severity Reaction Status Date / Time buprenorphine [From Suboxone] Allergy Swelling Verified 12/29/20 21:06 duloxetine [From Cymbalta] Allergy Confusion Verified 12/29/20 21:06 naloxone [From Suboxone] Allergy Swelling Verified 12/29/20 21:06 NSAIDS (Non-Steroidal Allergy Unknown Verified 12/29/20 21:06 Anti-Inflamma Childhood Physical Exam Vitals: Vital Signs Temp Pulse Pulse Resp BP BP Pulse Ox 12/30/20 14:00 97.8 F 92 18 147/79 94 L 12/30/20 07:00 97.0 F L 91 18 171/82 96 12/30/20 02:00 98 F 98 18 155/83 92 L 12/29/20 21:39 98.5 F 85 20 159/77 95 12/29/20 18:53 98.5 F 92 16 159/80 97 Intake and Output 12/29/20 12/30/20 12/30/20 22:59 06:59 14:59 Intake Total 250 480 Balance 250 480 Intake: Intake, IV Titration 250 Amount Vancomycin 1,500 mg In 250 Sodium Chloride 0.9% 250 ml @ 125 mls/hr IVPB ONCE ONE Rx#:[id number] Oral 480 Other: Voiding Method Toilet # Voids 1 3 2 Weight 95.254 kg Results CBC & Chem 7: 12/29/20 20:00 12/29/20 20:00 Labs: Abnormal Lab Results - Last 24 Hours (Table) 12/29/20 12/30/20 12/30/20 Range/Units 20:00 06:45 12:15 Sodium 132 L (137-145) mmol/L Creatinine 0.34 L (0.52-1.04) mg/dL Glucose 303 H (74-99) mg/dL POC Glucose (mg/dL) 221 H 155 H (75-99) mg/dL C-Reactive Protein 1.6 H (<1.0) mg/dL
[2020-12-31] MEDS: MORPHINE SULFATE 4 MG/ML SYRINGE IV PRN ×5 (01:47→21:20)
[2020-12-31] MEDS: VANCOMYCIN 1,500 MG in SODIUM CHLORIDE 0.9% 250 ML IVPB SCH ×3 (05:56→21:05)
[2020-12-31 07:38] LABS: Glucose,Whole Blood 260 mg/dL (75-99)
[2020-12-31] MEDS: NICOTINE 14MG/24HR PATCH TRANSDERM SCH (08:40)
[2020-12-31] MEDS: INSULIN ASPART (NovoLOG) 100 UNIT/ML VIAL SQ SCH ×4 (08:40→21:05)
[2020-12-31] MEDS: ENOXAPARIN 40 MG/0.4 ML SYRINGE SQ SCH (08:40)
[2020-12-31] MEDS: FAMOTIDINE 20 MG TAB PO SCH ×3 (08:41→19:49)
[2020-12-31] MEDS: PREGABALIN 100 MG CAP PO SCH ×2 (08:41→19:49)
[2020-12-31 10:00] LABS: Blood Urea Nitrogen 12.1 mg/dL (9.0-27.0); Carbon Dioxide 20.3 mmol/L (21.6-31.8); Chloride 101 mmol/L (96-109); Glucose 288 mg/dL (70-110); Potassium 4.3 mmol/L (3.5-5.5); Sodium 135 mmol/L (135-145)
[2020-12-31 11:57] LABS: Glucose,Whole Blood 237 mg/dL (75-99)
[2020-12-31] MEDS: HYDROcodone/APAP 7.5-325MG 1 EACH TAB PO PRN ×2 (12:41→19:48)
[2020-12-31] MEDS ORDERED: VANCOMYCIN TROUGH DUE 1 EACH MISC MISCELLANE ONE (13:00)
--- NOTE | 2020-12-31 16:09 | P.PN ---
Subjective Progress Note Date: 12/31/20 50-year-old female with known history of diabetes mellitus and patient believes she has diet-controlled diabetes mellitus came in with the also on the lateral aspect of the right foot as well as an ulcer on the anterior abdominal wall on the left side lower abdomen. Both of these are around stage 3-4 ulcer appeared to be infected.. Patient is also complaining of swelling in the right leg. Patient was comparing of intractable pain along with neuropathic symptoms. Wound cultures were obtained patient was started on vancomycin infectious disease was consulted. 12/31/2020 Patient is evaluated for the bedside. She states that this diabetic woman happened about one week ago. Cultures are still pending. She is on IV Vanco. Infectious disease is following closely as well as wound care. Patient is afebrile, heart rate 95 sinus rhythm, blood pressure 158/83 inches 95% room air. Patient is a one pack per day smoker. She is a nicotine patch in place. Labs reviewed today include a sodium level of 135, [id number] glucose of over 200, hemoglobin A1c of 11.8, her CRP is 1.6. Venous Doppler was completed of her right leg which was negative for a DVT however there was an incidental finding of a possible right femoral artery occlusion, with evidence of right femoral artery thrombosis. We will consult vascular for evaluation as she is having quite a bit of pain in that right leg. We will also start patient on subcu heparin. REVIEW OF SYSTEMS: CONSTITUTIONAL: No fever, no malaise, no fatigue. HEENT: No recent visual problems or hearing problems. Denied any sore throat. CARDIOVASCULAR: No chest pain, orthopnea, PND, no palpitations, no syncope. PULMONARY: No shortness of breath, no cough, no hemoptysis. GASTROINTESTINAL: No diarrhea, no nausea, no vomiting, no abdominal pain. NEUROLOGICAL: No headaches, no weakness, no numbness. HEMATOLOGICAL: Denies any bleeding or petechiae. GENITOURINARY: Denies any burning micturition, frequency, or urgency. MUSCULOSKELETAL/RHEUMATOLOGICAL: Does report significant burning pain to her right lower extremity. ENDOCRINE: Denies any polyuria or polydipsia. The rest of the 14-point review of systems is negative. PHYSICAL EXAMINATION: GENERAL: The patient is alert and oriented x3, not in any acute distress. Well developed, well nourished. HEENT: Pupils are round and equally reacting to light. EOMI. No scleral icterus. No conjunctival pallor. Normocephalic, atraumatic. No pharyngeal erythema. No thyromegaly. CARDIOVASCULAR: S1 and S2 present. No murmurs, rubs, or gallops. PULMONARY: Chest is clear to auscultation, no wheezing or crackles. ABDOMEN: Soft, nontender, nondistended, normoactive bowel sounds. No palpable organomegaly. MUSCULOSKELETAL: No joint swelling or deformity. EXTREMITIES: No cyanosis, clubbing, or pedal edema. NEUROLOGICAL: Gross neurological examination did not reveal any focal deficits. SKIN: As mentioned above patient has a stage 3-4 ulcers in the right foot as well as left anterior abdominal wall both of which is cleared to be infected but the right foot ulcer is clean based abdominal ulcer has some purulent discharge. Assessment and plan -Infected diabetic foot as well as abdominal wall ulcer: Continue vancomycin infectious disease will evaluate the patient wound cultures will be obtained -Uncontrolled type 2 diabetes mellitus patient doesn't use any medications at home patient will need oral hypoglycemic agents for now will continue sliding scale insulin, A1c is 11.8 -Pseudohyponatremia from hyperglycemia, improved -Swelling of the right leg. 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 Foot x-ray did not show any osteoa rthritis -Nicotine use: Counseling was provided will order 40 g of nicotine patch patient smokes about half a pack of cigarettes per day DVT prophylaxis: Lovenox We will continue patient on Lovenox for DVT prophylaxis however we will consult vascular surgery for an occlusive thrombosis in the right femoral artery. We will continue IV Vanco repeat labs in the morning. Continue with pain medica tion and as well as tight glycemic control. Objective - Vital Signs Vital signs: Vital Signs Temp 98.3 F 12/31/20 08:12 Pulse 93 12/31/20 08:12 Resp 16 12/31/20 08:12 BP 162/92 12/31/20 08:12 Pulse Ox 94 L 12/31/20 08:12 Intake & Output 12/30/20 12/31/20 12/31/20 18:59 06:59 18:59 Intake Total 720 180 Balance 720 180 Intake: Oral 720 180 Other: Voiding Method Toilet # Voids 2 1 - Labs CBC & Chem 7: 12/29/20 20:00 10/04/21 04:53 Labs: Abnormal Lab Results - Last 24 Hours (Table) 12/30/20 12/30/20 12/30/20 Range/Units 04:35 17:20 20:07 Carbon Dioxide (21.6-31.8) mmol/L Anion Gap (4.00-12.00) mmol/L Creatinine (0.6-1.5) mg/dL Glucose (70-110) mg/dL POC Glucose (mg/dL) 198 H 257 H (75-99) mg/dL Hemoglobin A1c 11.8 H (4.0-6.0) % 12/31/20 12/31/20 12/31/20 Range/Units 04:53 07:37 11:56 Carbon Dioxide 20.3 L (21.6-31.8) mmol/L Anion Gap 13.50 H (4.00-12.00) mmol/L Creatinine <0.2 L (0.6-1.5) mg/dL Glucose 288 H (70-110) mg/dL POC Glucose (mg/dL) 260 H 237 H (75-99) mg/dL Hemoglobin A1c (4.0-6.0) % Microbiology - Last 24 Hours (Table) 12/30/20 10:13 Gram Stain - Preliminary Foot - Right Wound Culture - Preliminary Assessment and Plan Time with Patient: Greater than 30
[2020-12-31 16:19] VITALS: BMI 33.9
[2020-12-31 17:21] LABS: Glucose,Whole Blood 283 mg/dL (75-99)
[2020-12-31 20:22] LABS: Glucose,Whole Blood 240 mg/dL (75-99)
[2020-12-31] MEDS: INSULIN DETEMIR (LEVEMIR) 100 UNIT/ML SYR SQ SCH (21:05)
[2021-01-01] MEDS ORDERED: CEFEPIME 2 GM in SODIUM CHLORIDE 0.9% 100 ML IVPB ONE ×2
[2021-01-01] MEDS: MORPHINE SULFATE 4 MG/ML SYRINGE IV PRN ×5 (00:54→19:30)
[2021-01-01] MEDS: HYDROcodone/APAP 7.5-325MG 1 EACH TAB PO PRN ×3 (03:08→21:12)
[2021-01-01] MEDS: VANCOMYCIN 1,500 MG in SODIUM CHLORIDE 0.9% 250 ML IVPB SCH ×3 (05:28→21:49)
[2021-01-01 06:40] LABS: African American GFR (CKD) >90 (>60 ml/min/1.73 sqM); Anion Gap 6 mmol/L; Blood Urea Nitrogen 11 mg/dL (7-17); Calcium 9.2 mg/dL (8.4-10.2); Carbon Dioxide 23 mmol/L (22-30); Chloride 102 mmol/L (98-107); Glucose 204 mg/dL (74-99); Non-African American GFR(CKD) >90 (>60 ml/min/1.73 sqM); Potassium 4.3 mmol/L (3.5-5.1); Sodium 131 mmol/L (137-145)
[2021-01-01 07:45] LABS: Glucose,Whole Blood 193 mg/dL (75-99)
[2021-01-01] MEDS: PREGABALIN 100 MG CAP PO SCH ×2 (08:12→21:12)
[2021-01-01] MEDS: NICOTINE 14MG/24HR PATCH TRANSDERM SCH (08:12)
[2021-01-01] MEDS: INSULIN ASPART (NovoLOG) 100 UNIT/ML VIAL SQ SCH ×4 (08:12→21:11)
[2021-01-01] MEDS: CEFEPIME 2 GM in SODIUM CHLORIDE 0.9% 100 ML IVPB SCH ×2 (08:12→17:34)
[2021-01-01] MEDS: FAMOTIDINE 20 MG TAB PO SCH ×2 (08:12→21:12)
[2021-01-01] MEDS: ENOXAPARIN 40 MG/0.4 ML SYRINGE SQ SCH (08:13)
[2021-01-01 09:32] LABS: Basophils # (A) 0.06 X 10*3/uL (0.00-0.10); Basophils % (A) 0.8 %; Eosinophils # (A) 0.16 X 10*3/uL (0.04-0.35); Eosinophils % (A) 2.1 %; HCT 40.1 % (37.2-46.3); Lymphocytes # (A) 2.27 X 10*3/uL (0.90-5.00); Lymphocytes % (A) 29.3 %; MCH 27.4 pg (27.0-32.0); MCHC 32.4 g/dL (32.0-37.0); MCV 84.6 fL (80.0-97.0); Mean Platelet Volume 11.3 fL (9.5-12.2); Monocytes # (A) 0.54 X 10*3/uL (0.20-1.00); Neutrophils # (A) 4.69 X 10*3/uL (1.80-7.70); Neutrophils % (A) 60.4 %; Platelet Count 233 X 10*3/uL (140-440); RBC 4.74 X 10*6/uL (4.10-5.20); RDW 13.5 % (11.5-14.5); WBC 7.75 X 10*3/uL (4.50-10.00)
--- NOTE | 2021-01-01 10:47 | P.GSCN ---
History of Present Illness Consult date: 01/01/21 Reason for Consult: possible femoral occlusion Requesting physician: Brijesh Miller History of present illness: This is a 50-year-old female with a past medical history of diabetes, current smoker, and diabetic foot ulcers who presented to the emergency department yesterday with complaints of right foot pain. She also is complaining of swelling to the right lower extremity. Patient denies any trauma to the leg or foot. She apparently also has a abdominal wall ulcer on the left lower side as well as a ulcer to the lateral aspect of the right foot. She underwent an x-ray of the right foot that showed no acute findings. She also had a venous Doppler of the right lower extremity that was negative for DVT however states that there is incidental finding of a possible right femoral artery occlusion therefore vascular surgery was consulted. The patient states approximately 3 weeks ago she started having pain down her right lower extremity which she thought was sciatic pain and she has had previous back surgeries. She denies any pain with walking other than for the last 1 week duration when she started noticing wounds on her lower extremity with swelling. States that it feels like she is walking on rocks. She denies any fevers or chills at home. She also states during this last week she feels like she has numbness and tingling down her right foot. Patient states she smokes about a half a pack of cigarettes per day. No previous knowledge of any peripheral arterial disease. States that she has had some sores before from her chickens who will come up and pack at her legs, however none like the one she is presenting with. Denies any shortness of breath, chest pain, abdominal pain, nausea, vomiting, fever or chills. Review of Systems A 14 point review of systems was completed and all pertinent positives and negatives as stated in the HPI Past Medical History Past Medical History: Diabetes Mellitus Additional Past Medical History / Comment(s): bowel obstruction, kidney stones History of Any Multi-Drug Resistant Organisms: None Reported Past Surgical History: Back Surgery, Bladder Surgery, Section, Cholecystectomy, Hernia Repair, Orthopedic Surgery Past Psychological History: No Psychological Hx Reported Smoking Status: Current every day smoker Past Alcohol Use History: Rare Past Drug Use History: None Reported Medications and Allergies Home Medications Medication Instructions Recorded Confirmed Type Omeprazole 20 mg PO HS 12/29/20 12/29/20 History Allergies Allergy/AdvReac Type Severity Reaction Status Date / Time buprenorphine [From Suboxone] Allergy Swelling Verified 12/29/20 21:06 duloxetine [From Cymbalta] Allergy Confusion Verified 12/29/20 21:06 naloxone [From Suboxone] Allergy Swelling Verified 12/29/20 21:06 NSAIDS (Non-Steroidal Allergy Unknown Verified 12/29/20 21:06 Anti-Inflamma Childhood Surgical - Exam Vital Signs Temp Pulse Resp BP Pulse Ox 98.5 F 92 16 159/80 97 12/29/20 18:53 12/29/20 18:53 12/29/20 18:53 12/29/20 18:53 12/29/20 18:53 General appearance: The patient is alert, oriented, appears in no acute distress. HET: Head is normocephalic and atraumatic. Neck: Supple without lymphadenopathy. Trachea midline. Heart: S1 S2. Regular rate and rhythm. Lungs: Clear to auscultation. Abdomen: Soft, nontender, nondistended. Ulcer to left lower abdominal wall. Extremities: Positive bilateral palpable femoral pulses, left greater than right. Nonpalpable popliteal, posterior tibialis, or dorsalis pedis pulse on right lower extremity. Palpable popliteal, posterior tibialis, and dorsalis pedis pulse on left lower extremity. Right foot with swelling and redness surrounding ulcer to lateral aspect of right ankle. Right foot and toes with palor and decreased capillary refill. Multiple other scabbed ulcers on right lower extremity. Neurological: No focal deficits. Strength and sensation are grossly intact. Results - Labs 01/01/21 05:01 01/01/21 05:01 Abnormal Lab Results - Last 24 Hours (Table) 12/31/20 12/31/20 12/31/20 Range/Units 04:53 11:56 17:19 Sodium (137-145) mmol/L Carbon Dioxide 20.3 L (21.6-31.8) mmol/L Anion Gap 13.50 H (4.00-12.00) mmol/L Creatinine <0.2 L (0.6-1.5) mg/dL Glucose 288 H (70-110) mg/dL POC Glucose (mg/dL) 237 H 283 H (75-99) mg/dL 12/31/20 01/01/21 Range/Units 20:21 05:01 Sodium 131 L (137-145) mmol/L Carbon Dioxide (21.6-31.8) mmol/L Anion Gap (4.00-12.00) mmol/L Creatinine 0.33 L (0.6-1.5) mg/dL Glucose 204 H (70-110) mg/dL POC Glucose (mg/dL) 240 H (75-99) mg/dL Microbiology - Last 24 Hours (Table) 12/30/20 10:13 Gram Stain - Preliminary Foot - Right Wound Culture - Preliminary Gram Neg Bacilli Presumptive Staph aureus Diabetes panel 12/31/20 01/01/21 Range/Units 04:53 05:01 Sodium 135 131 L (135-145) mmol/L Potassium 4.3 4.3 (3.5-5.5) mmol/L Chloride 101 102 (96-109) mmol/L Carbon Dioxide 20.3 L 23 (21.6-31.8) mmol/L BUN 12.1 11 (9.0-27.0) mg/dL Creatinine <0.2 L 0.33 L (0.6-1.5) mg/dL Glucose 288 H 204 H (70-110) mg/dL Calcium 9.0 9.2 (8.7-10.3) mg/dL Calcium panel 12/31/20 01/01/21 Range/Units 04:53 05:01 Calcium 9.0 9.2 (8.7-10.3) mg/dL Pituitary panel 12/31/20 01/01/21 Range/Units 04:53 05:01 Sodium 135 131 L (135-145) mmol/L Potassium 4.3 4.3 (3.5-5.5) mmol/L Chloride 101 102 (96-109) mmol/L Carbon Dioxide 20.3 L 23 (21.6-31.8) mmol/L BUN 12.1 11 (9.0-27.0) mg/dL Creatinine <0.2 L 0.33 L (0.6-1.5) mg/dL Glucose 288 H 204 H (70-110) mg/dL Calcium 9.0 9.2 (8.7-10.3) mg/dL Adrenal panel 12/31/20 01/01/21 Range/Units 04:53 05:01 Sodium 135 131 L (135-145) mmol/L Potassium 4.3 4.3 (3.5-5.5) mmol/L Chloride 101 102 (96-109) mmol/L Carbon Dioxide 20.3 L 23 (21.6-31.8) mmol/L BUN 12.1 11 (9.0-27.0) mg/dL Creatinine <0.2 L 0.33 L (0.6-1.5) mg/dL Glucose 288 H 204 H (70-110) mg/dL Calcium 9.0 9.2 (8.7-10.3) mg/dL - Imaging Comments: See HPI for details Assessment and Plan Assessment: 1. Diabetic foot ulcer, right lower extremity 2. Diabetic ulcers, right lower extremity 3. Possible femoral artery occlusion per venous Doppler 4. History of diabetes mellitus 5. Current every day smoker Plan: 1. Arterial study for lower extremities ordered, however machine currently unavailable 2. Nothing by mouth 3. Will schedule patient for aortogram with bilateral runoff today 4. Continue local wound care per recommendations from infectious disease 5. Continue IV antibiotics per infectious disease 6. Further recommendations to follow based on findings from aortogram with bilateral runoff Thank you for this consultation, we will continue to follow. The impression and plan of care has been dictated as directed. Dr. Thomas I performed a history and examination of this patient, discussed the same with the dictator. I agree with the dictator's note ,documented as a scribe. Any additional findings or plans will be noted.
--- NOTE | 2021-01-01 11:35 | PN ---
PROGRESS NOTE DATE OF SERVICE: 12/31/2020 REASON FOR FOLLOWUP: Right foot lateral border wound and abdominal wall wound and cellulitis. INTERVAL HISTORY: The patient is afebrile. The patient is breathing comfortably. The patient is still complaining of pain to the right foot area. Denies having any chest pain, shortness of breath or cough. No abdominal pain or diarrhea. PHYSICAL EXAMINATION: Blood pressure 147/75 with a pulse of 98, temperature 98.2. She is 95% on room air. General description is a middle-aged female up in the bed in no distress. RESPIRATORY SYSTEM: Unlabored breathing. Clear to auscultation anteriorly. HEART: S1, S2. Regular rate and rhythm. ABDOMEN: Soft. Wounds are currently dressed. Right foot wound is currently dressed. No drainage on the dressing. LABS: Culture now showing Staph aureus and Gram-negative bacilli. DIAGNOSTIC IMPRESSION AND PLAN: Patient with right foot lateral border wound, questionably ischemic, worsening abdominal wound and cellulitis. Culture showing Staph aureus and Gram-negative. Continue vancomycin. Cefepime will be added. She also has possible for which Vascular Surgery has been consulted. Will await their recommendation and continue supportive care. MMODL / IJN: [id number] /
[2021-01-01 12:04] LABS: Glucose,Whole Blood 180 mg/dL (75-99)
--- NOTE | 2021-01-01 14:35 | P.PN ---
Subjective 50-year-old female with known history of diabetes mellitus and patient believes she has diet-controlled diabetes mellitus came in with the also on the lateral aspect of the right foot as well as an ulcer on the anterior abdominal wall on the left side lower abdomen. Both of these are around stage 3-4 ulcer appeared to be infected.. Patient is also complaining of swelling in the right leg. Patient was comparing of intractable pain along with neuropathic symptoms. Wound cultures were obtained patient was started on vancomycin infectious dis ease was consulted. 12/31/2020 Patient is evaluated for the bedside. She states that this diabetic woman happened about one week ago. Cultures are still pending. She is on IV Vanco. Infectious disease is following closely as well as wound care. Patient is afebrile, heart rate 95 sinus rhythm, blood pressure 158/83 inches 95% room air. Patient is a one pack per day smoker. She is a nicotine patch in place. Labs reviewed today include a sodium level of 135, [id number] glucose of over 200, hemoglobin A1c of 11.8, her CRP is 1.6. Venous Doppler was completed of her right leg which was negative for a DVT however there was an incidental finding of a possible right femoral artery occlusion, with evidence of right femoral artery thrombosis. We will consult vascular for evaluation as she is having quite a bit of pain in that right leg. We will also start patient on subcu heparin. 01/01/2021 Patient has an incidental finding of possible right femoral artery thrombosis because of his vascular surgery was consulted, vascular surgery is planning on either gram tomorrow as arterial Doppler is not available at this time. Patient won't cultures are positive for gram-negative bacilli for which patient is on cefepime and patient also has staph aureus for which patient is on vancomycin. PHYSICAL EXAMINATION: GENERAL: The patient is alert and oriented x3, not in any acute distress. Well developed, well nourished. HEENT: Pupils are round and equally reacting to light. EOMI. No scleral icterus. No conjunctival pallor. Normocephalic, atraumatic. No pharyngeal erythema. No thyromegaly. CARDIOVASCULAR: S1 and S2 present. No murmurs, rubs, or gallops. PULMONARY: Chest is clear to auscultation, no wheezing or crackles. ABDOMEN: Soft, nontender, nondistended, normoactive bowel sounds. No palpable organomegaly. MUSCULOSKELETAL: No joint swelling or deformity. EXTREMITIES: No cyanosis, clubbing, or pedal edema. NEUROLOGICAL: Gross neurological examination did not reveal any focal deficits. SKIN: As mentioned above patient has a stage 3-4 ulcers in the right foot as well as left anterior abdominal wall both of which is cleared to be infected but the right foot ulcer is clean based abdominal ulcer has some purulent discharge. Assessment and plan -Infected diabetic foot as well as abdominal wall ulcer: Continue vancomycin infectious disease will evaluate the patient wound cultures as mentioned above -Uncontrolled type 2 diabetes mellitus patient doesn't use any medications at home patient will need oral hypoglycemic agents for now will continue sliding scale insulin, A1c is 11.8 patient was started on long-acting insulin which is appropriate -Hyponatremia: Patient will be started on IV fluids -Swelling of the right leg. Doppler shows a right femoral artery thrombosis , vascular surgery evaluated the patient and planning on aorto gram Foot x-ray did not show any osteoarthritis -Nicotine use: Counseling was provided will order 40 g of nicotine patch patient smokes about half a pack of cigarettes per day DVT prophylaxis: Lovenox Objective - Vital Signs Vital signs: Vital Signs Temp 98.2 F 01/01/21 07:00 Pulse 86 01/01/21 07:00 Resp 16 01/01/21 07:00 BP 146/80 01/01/21 07:00 Pulse Ox 95 01/01/21 07:00 Intake & Output 12/31/20 01/01/21 01/01/21 18:59 06:59 18:59 Intake Total 770 Balance 770 Weight 95.254 kg Intake: Oral 770 Other: Voiding Method Toilet # Voids 2 2 - Labs CBC & Chem 7: 01/01/21 05:01 01/01/21 05:01 Labs: Abnormal Lab Results - Last 24 Hours (Table) 12/31/20 12/31/20 01/01/21 Range/Units 17:19 20:21 05:01 Sodium 131 L (137-145) mmol/L Creatinine 0.33 L (0.52-1.04) mg/dL Glucose 204 H (74-99) mg/dL POC Glucose (mg/dL) 283 H 240 H (75-99) mg/dL 01/01/21 01/01/21 Range/Units 07:43 12:02 Sodium (137-145) mmol/L Creatinine (0.52-1.04) mg/dL Glucose (74-99) mg/dL POC Glucose (mg/dL) 193 H 180 H (75-99) mg/dL Microbiology - Last 24 Hours (Table) 01/01/21 05:58 Wound Culture - Preliminary Abdomen 01/01/21 05:58 Anaerobic Culture - Preliminary Abdomen 12/30/20 10:13 Gram Stain - Preliminary Foot - Right Wound Culture - Preliminary Gram Neg Bacilli Presumptive Staph aureus
[2021-01-01] MEDS: SODIUM CHLORIDE 0.9% 1,000 ML IV SCH (14:54)
[2021-01-01 17:35] LABS: Glucose,Whole Blood 224 mg/dL (75-99)
[2021-01-01 20:17] LABS: Glucose,Whole Blood 231 mg/dL (75-99)
[2021-01-01] MEDS: INSULIN DETEMIR (LEVEMIR) 100 UNIT/ML SYR SQ SCH (21:11)
[2021-01-02] MEDS: MORPHINE SULFATE 4 MG/ML SYRINGE IV PRN ×6 (00:06→22:41)
[2021-01-02] MEDS: CEFEPIME 2 GM in SODIUM CHLORIDE 0.9% 100 ML IVPB SCH ×4 (00:07→22:42)
[2021-01-02] MEDS: HYDROcodone/APAP 7.5-325MG 1 EACH TAB PO PRN ×3 (02:16→20:18)
[2021-01-02] MEDS: SODIUM CHLORIDE 0.9% 1,000 ML IV SCH ×2 (04:12→17:57)
--- NOTE | 2021-01-02 06:16 | PN ---
PROGRESS NOTE DATE OF SERVICE: 01/01/2021 REASON FOR FOLLOWUP: Right lower extremity and abdominal wound cellulitis. INTERVAL HISTORY: Patient is afebrile. The patient is breathing comfortably. Still complaining of pain to the right lower extremity, swelling and redness has slightly decreased. No chest pain, shortness of breath, cough, no abdominal pain. No diarrhea. PHYSICAL EXAMINATION: Blood pressure 157/81 with a pulse of 83, temperature 98.7. She is 94% on room air. General description is a middle-aged female up in the bed in no distress. Respiratory system: Unlabored breathing. Clear to auscultation anteriorly. Heart S1, S2. Regular rate and rhythm. Abdomen: Soft. Right lower extremity with multiple wounds. Redness slightly decreased. No drainage. LABS: Hemoglobin is 13.1, white count 7.5, creatinine 0.33. Culture has been finalized with MSSA and Pseudomonas. DIAGNOSTIC IMPRESSION AND PLAN: Patient with right lower extremity and abdominal wall wound and cellulitis. Cultures with MSSA and Pseudomonas should be covered with cefepime. Vancomycin will be discontinued. Waiting for the angiogram and runoff tomorrow per vascular surgery. Continue supportive care. MMODL / IJN: [id number] /
[2021-01-02] MEDS: NICOTINE 14MG/24HR PATCH TRANSDERM SCH (07:36)
[2021-01-02] MEDS: PREGABALIN 100 MG CAP PO SCH ×2 (07:37→20:19)
[2021-01-02] MEDS: FAMOTIDINE 20 MG TAB PO SCH ×2 (07:37→20:19)
[2021-01-02 07:44] LABS: Glucose,Whole Blood 199 mg/dL (75-99)
[2021-01-02] MEDS: INSULIN ASPART (NovoLOG) 100 UNIT/ML VIAL SQ SCH ×4 (07:57→21:26)
[2021-01-02] MEDS ORDERED: fentaNYL (PF) 50 MCG/ML 2 ML AMP ONE (12:25)
[2021-01-02] MEDS ORDERED: LIDOCAINE 1% INJ 10MG/ML (20 ML MDV) ONE (12:26)
[2021-01-02 12:30] LABS: Glucose,Whole Blood 137 mg/dL (75-99)
[2021-01-02] MEDS ORDERED: fentaNYL (PF) 50 MCG/ML 2 ML AMP IV ONE (12:53)
[2021-01-02] MEDS: MIDAZOLAM 2 MG/2 ML VIAL IV ONE ×2 (12:53→12:59)
[2021-01-02] MEDS ORDERED: LIDOCAINE 1% INJ 10MG/ML (20 ML MDV) SQ ONE (12:58)
[2021-01-02] MEDS ORDERED: IV FLUID CONTINUATION 700 ML IV ONE (12:59)
[2021-01-02] MEDS ORDERED: IOPAMIDOL-250 100ML BTL INTRAARTER ONE (13:20)
--- NOTE | 2021-01-02 13:49 | IR ---
EXAMINATION TYPE: IR angio abdominal w runoff DATE OF EXAM: 01/02/2021 COMPARISON: NONE HISTORY: Fluoroscopy time. Fluoroscopy was provided to the referring clinician.
[2021-01-02 17:27] LABS: Glucose,Whole Blood 143 mg/dL (75-99)
--- NOTE | 2021-01-02 17:33 | P.OP ---
Date of Procedure: 01/02/21 Description of Procedure: Preoperative diagnosis: [Right lower extremity wound, nonhealing, diabetes, possible arterial occlusion on venous Doppler] Postoperative diagnosis: Same Procedure: [#1 ultrasound guided left common femoral artery access #2 aortogram with bilateral lower extremity runoff #3 selective right lower extremity angiogram artery, second order to external iliac artery #4 moderate conscious sedation 22 minutes] Surgeon: Georgie Byrne D.O. EBL: [Less than 10 mL] IV fluids: [See records] Urine output: [Not measured] Drains: [None] Complications: [None immediately apparent] Condition: [Stable] Operative indication and findings: [The patient is a 50-year-old female that approximately 3-4 weeks ago had increasing pain of her right lower extremity. She thought it was sciatica nature at first she socially states she very rapidly developed wounds. She maintains motor sensory of her extremity. She underwent a venous duplex which was negative for any venous thrombus but did note possible occlusion of the femoral artery initial attempts were made to obtain a arterial Doppler but the machine was nonfunctional therefore the patient was offered a catheter directed angiogram. Risks and benefits were discussed. She seemingly understood and was willing to proceed as such.] Procedure in detail: [The patient was taken to the special suite and placed in supine position. The bilateral groins are prepped and draped in usual sterile fashion. Pre-procedure medications were given. A preprocedure timeout was performed, all parties were in agreement. The ultrasound was utilized and the left common femoral artery was identified. The skin overlying was anesthetized with 1% lidocaine plain. Using ultrasound a multipurpose needle was used to access the left common femoral artery. Seldinger technique was placed and a 5- Amharic sheath was placed. Catheters and wires were used access the aorta and an angiogram was performed. Lower extremity stations performed after the catheter was brought down to the level of bifurcation. Given the poor resolution of the right lower extremity and Up & Over technique was used to select the right common iliac and advanced into the right external iliac system where right lower extremity angiograms were performed. Catheters and wires were removed. The sheath was removed and pressure was held until hemostasis was adequate. Angiographic findings the aorta appears normal course and caliber. Visual his portions of the celiac, superior mesenteric and renal arteries appear patent without evidence of significant disease. There are multiple lumbar arteries visualized. On the right the common and internal iliac appear patent without significant disease. There is area of high-grade stenosis of the external iliac artery. The common femoral artery has a area of abrupt occlusion. The profunda appears patent and reconstitutes via collateral flow. There is no significant flow through the superficial femoral artery at this level. There is reconstitution of the superficial femoral artery of be a smaller collaterals at the Dante's canal canal. Flow is slow through here but the appearance popliteal artery appears patent without significant disease. There is visualized but diminutive anterior tibial, tibial peroneal trunk, peroneal and a mildly visualized posterior tibial at the level of the calf. Again there is poor flow through here not making good visualization of distal vessel. On the left the common, internal and external iliac arteries appear patent without significant disease. The common femoral artery appears patent without significant disease. The profunda is very large and the obvious only vessel at this level as the superficial femoral artery is occluded at the level of its takeoff. There appears to be reconstitution of the above-knee portion of the superficial femoral artery/popliteal artery at the level of Dante's canal via large collateral vessels. The popliteal artery is patent without significant disease. There is anterior tibial artery at the takeoff as well as a long tibial peroneal trunk and visualized takeoff of the peroneal and posterior tibial artery.
[2021-01-02] MEDS: INSULIN DETEMIR (LEVEMIR) 100 UNIT/ML SYR SQ SCH (20:19)
[2021-01-02 21:01] LABS: Glucose,Whole Blood 206 mg/dL (75-99)
--- NOTE | 2021-01-02 21:08 | P.PN ---
Subjective Progress Note Date: 01/02/21 50-year-old female with known history of diabetes mellitus and patient believes she has diet-controlled diabetes mellitus came in with the also on the lateral aspect of the right foot as well as an ulcer on the anterior abdominal wall on the left side lower abdomen. Both of these are around stage 3-4 ulcer appeared to be infected.. Patient is also complaining of swelling in the right leg. Patient was comparing of intractable pain along with neuropathic symptoms. Wound cultures were obtained patient was started on vancomycin infectious disease was consulted. 12/31/2020 Patient is evaluated for the bedside. She states that this diabetic woman happened about one week ago. Cultures are still pending. She is on IV Vanco. Infectious disease is following closely as well as wound care. Patient is afebrile, heart rate 95 sinus rhythm, blood pressure 158/83 inches 95% room air. Patient is a one pack per day smoker. She is a nicotine patch in place. Labs reviewed today include a sodium level of 135, [id number] glucose of over 200, hemoglobin A1c of 11.8, her CRP is 1.6. Venous Doppler was completed of her right leg which was negative for a DVT however there was an incidental finding of a possible right femoral artery occlusion, with evidence of right femoral artery thrombosis. We will consult vascular for evaluation as she is having quite a bit of pain in that right leg. We will also start patient on subcu heparin. 01/01/2021 Patient has an incidental finding of possible right femoral artery thrombosis because of his vascular surgery was consulted, vascular surgery is planning on either gram tomorrow as arterial Doppler is not available at this time. Patient won't cultures are positive for gram-negative bacilli for which patient is on cefepime and patient also has staph aureus for which patient is on vancomycin. Patient is still complaining of right groin and buttock pain, sharp in nature. She has a diabetic ulcer on her right stomach, right ankle, and 2 on her right calf. On IV cefepime. 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 Right foot appears more edematous and cooler in color than the left, however pedal pulses are still palpable. Plan is for a possible open femoral endartectomy with possible stent with Dr Byrne on Thursday. A1c is 11.8, we started patient on 10 of levemir and blood sugars have slowly improved. REVIEW OF SYSTEMS: CONSTITUTIONAL: No fever, no malaise, no fatigue. HEENT: No recent visual problems or hearing problems. Denied any sore throat. CARDIOVASCULAR: No chest pain, orthopnea, PND, no palpitations, no syncope. PULMONARY: No shortness of breath, no cough, no hemoptysis. GASTROINTESTINAL: No diarrhea, no nausea, no vomiting, no abdominal pain. NEUROLOGICAL: No headaches, no weakness, no numbness. MUSCULOSKELETAL/RHEUMATOLOGICAL: Does report significant burning pain to her right lower extremity. PHYSICAL EXAMINATION: GENERAL: The patient is alert and oriented x3, not in any acute distress. Well developed, well nourished. HEENT: Pupils are round and equally reacting to light. EOMI. No scleral icterus. No conjunctival pallor. Normocephalic, atraumatic. No pharyngeal erythema. No thyromegaly. CARDIOVASCULAR: S1 and S2 present. No murmurs, rubs, or gallops. PULMONARY: Chest is clear to auscultation, no wheezing or crackles. ABDOMEN: Soft, nontender, nondistended, normoactive bowel sounds. No palpable organomegaly. MUSCULOSKELETAL: No joint swelling or deformity. EXTREMITIES: No cyanosis, clubbing, mild edema to right foot NEUROLOGICAL: Gross neurological examination did not reveal any focal deficits. SKIN: As mentioned above patient has a stage 3-4 ulcers in the right foot as well as left anterior abdominal wall both of which is cleared to be infected but the right foot ulcer is clean based abdominal ulcer has some purulent discharge. Assessment and plan -Infected diabetic foot as well as abdominal wall ulcer: IV cefepime, ID following -Uncontrolled type 2 diabetes mellitus patient doesn't use any medications at home patient will need oral hypoglycemic agents for now will continue sliding scale insulin and levemir, A1c is 11.8 -Pseudohyponatremia from hyperglycemia, -Swelling of the right leg. 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 Foot x-ray did not show any osteoarthritis -stenosis of the exernal iliac artery - procedure planned for thursday -Hypertension - started on lisinopril -Nicotine use: Counseling was provided will order 40 g of nicotine patch patient smokes about half a pack of cigarettes per day DVT prophylaxis: Lovenox GI Prophylaxis: Pepcid Open femoral endarectomy with possible stent planned for thursday. Add lisinopril for blood pressure control. AM EKG for surgical clearance. AM labs. Objective - Vital Signs Vital signs: Vital Signs Temp 98.6 F 01/02/21 07:00 Pulse 92 01/02/21 13:56 Resp 14 01/02/21 13:56 BP 173/79 01/02/21 13:56 Pulse Ox 91 L 01/02/21 13:56 Intake & Output 01/01/21 01/02/21 01/02/21 18:59 06:59 18:59 Intake Total 200 Balance 200 Intake: IV 200 Other: Voiding Method Toilet # Voids 1 2 - Labs CBC & Chem 7: 01/01/21 05:01 01/01/21 05:01 Labs: Abnormal Lab Results - Last 24 Hours (Table) 01/01/21 01/01/21 01/02/21 Range/Units 17:34 20:15 07:16 POC Glucose (mg/dL) 224 H 231 H 199 H (75-99) mg/dL 01/02/21 Range/Units 12:09 POC Glucose (mg/dL) 137 H (75-99) mg/dL Microbiology - Last 24 Hours (Table) 01/01/21 05:58 Gram Stain - Preliminary Abdomen Wound Culture - Preliminary 12/30/20 10:13 Gram Stain - Final Foot - Right Wound Culture - Final Pseudomonas aeruginosa Staphylococcus aureus 01/01/21 05:58 Anaerobic Culture - Preliminary Abdomen Assessment and Plan Time with Patient: Greater than 30
--- NOTE | 2021-01-02 23:45 | PN ---
PROGRESS NOTE DATE OF SERVICE: 01/02/2021 REASON FOR FOLLOWUP: Right lower extremity wound cellulitis and abdominal wall wound. INTERVAL HISTORY: Patient is afebrile, has been breathing comfortably. No chest pain, shortness of breath or cough. No worsening abdominal wound. Still complains of pain to the right lower extremity wound. PHYSICAL EXAMINATION: Blood pressure 171/82 with a pulse of 93, temperature 98.1. She is 97% on 2 L nasal cannula. General description is a middle-aged female lying in bed in no distress. Respiratory system: Unlabored breathing, clear to auscultation anteriorly. Heart S1, S2. Regular rate and rhythm. Abdomen soft, no tenderness. Right lower extremity wounds are currently dressed. No obvious drainage on the dressing. DIAGNOSTIC IMPRESSION AND PLAN: Patient with right lower extremity and abdominal wound and cellulitis. Culture positive for MSSA and Pseudomonas. Patient is covered with cefepime. Local care to continue as ordered and monitor clinical course closely. MMODL / IJN: [id number] /
[2021-01-03] MEDS: HYDROcodone/APAP 7.5-325MG 1 EACH TAB PO PRN ×4 (01:57→21:52)
[2021-01-03] MEDS: MORPHINE SULFATE 4 MG/ML SYRINGE IV PRN ×5 (03:24→21:03)
[2021-01-03 05:25] LABS: African American GFR (CKD) >90 (>60 ml/min/1.73 sqM); Anion Gap 7 mmol/L; Blood Urea Nitrogen 11 mg/dL (7-17); Calcium 9.6 mg/dL (8.4-10.2); Carbon Dioxide 24 mmol/L (22-30); Chloride 103 mmol/L (98-107); Glucose 172 mg/dL (74-99); Non-African American GFR(CKD) >90 (>60 ml/min/1.73 sqM); Potassium 4.3 mmol/L (3.5-5.1); Sodium 134 mmol/L (137-145)
[2021-01-03 07:25] LABS: Glucose,Whole Blood 132 mg/dL (75-99)
[2021-01-03] MEDS: INSULIN ASPART (NovoLOG) 100 UNIT/ML VIAL SQ SCH ×4 (07:26→21:47)
[2021-01-03] MEDS: CEFEPIME 2 GM in SODIUM CHLORIDE 0.9% 100 ML IVPB SCH ×3 (07:38→21:02)
[2021-01-03] MEDS: NICOTINE 14MG/24HR PATCH TRANSDERM SCH (07:38)
[2021-01-03] MEDS: lisinopriL 10 MG TAB PO SCH (07:38)
[2021-01-03] MEDS: PREGABALIN 100 MG CAP PO SCH ×2 (07:38→21:03)
[2021-01-03] MEDS: FAMOTIDINE 20 MG TAB PO SCH ×2 (07:38→21:03)
[2021-01-03] MEDS: SODIUM CHLORIDE 0.9% 1,000 ML IV SCH ×2 (07:39→21:03)
[2021-01-03 11:20] LABS: Glucose,Whole Blood 212 mg/dL (75-99)
--- NOTE | 2021-01-03 12:20 | P.PN ---
Subjective Progress Note Date: 01/03/21 Patient was seen and examined at the bedside. She is status post aortogram with runoff. She's had no bleeding from access site. States she still having pain down her right lower extremity. Objective - Vital Signs Vital signs: Vital Signs Temp 97.9 F 01/03/21 07:59 Pulse 79 01/03/21 07:59 Resp 17 01/03/21 07:59 BP 133/69 01/03/21 07:59 Pulse Ox 92 L 01/03/21 07:59 Intake & Output 01/02/21 01/03/21 01/03/21 18:59 06:59 18:59 Intake Total 200 Output Total 400 Balance -200 Intake: IV 200 Output: Urine 400 Other: Voiding Method Toilet Toilet # Voids 4 3 - Exam General appearance: The patient is alert, oriented, in no acute distress. HET: Head is normocephalic and atraumatic. s. Neck: Supple without lymphadenopathy. Trachea midline. Extremities: Right lower extremity with pallor and mottling, edema. Multiple wounds on right lower extremity. Tender to palpation. Dressing to right ankle clean dry and intact. Neurological: No focal deficits. Strength and sensation are grossly intact. - Labs CBC & Chem 7: 01/01/21 05:01 01/03/21 04:22 Labs: Abnormal Lab Results - Last 24 Hours (Table) 01/02/21 01/02/21 01/02/21 Range/Units 12:09 17:15 20:59 Sodium (137-145) mmol/L Creatinine (0.52-1.04) mg/dL Glucose (74-99) mg/dL POC Glucose (mg/dL) 137 H 143 H 206 H (75-99) mg/dL 01/03/21 01/03/21 Range/Units 04:22 07:22 Sodium 134 L (137-145) mmol/L Creatinine 0.33 L (0.52-1.04) mg/dL Glucose 172 H (74-99) mg/dL POC Glucose (mg/dL) 132 H (75-99) mg/dL Microbiology - Last 24 Hours (Table) 01/01/21 05:58 Gram Stain - Preliminary Abdomen Wound Culture - Preliminary Assessment and Plan Assessment: 1. Diabetic foot ulcer, right lower extremity 2. Diabetic ulcers, right lower extremity 3. Possible femoral artery occlusion per venous Doppler 4. History of diabetes mellitus 5. Current every day smoker Plan: 1. Patient is scheduled for right femoral cutdown, thrombo-endarterectomy, possible angioplasty and stent, possible bypass 2. Nothing by mouth after midnight 3. Continue local wound care per recommendations from infectious disease 4. Continue IV antibiotics per infectious disease Thank you for this consultation, we will continue to follow. The impression and plan of care has been dictated as directed. Dr. Self I performed a history and examination of this patient, discussed the same with the dictator. I agree with the dictator's note ,documented as a scribe. Any additional findings or plans will be noted.
--- NOTE | 2021-01-03 14:28 | P.PN ---
Subjective Progress Note Date: 01/03/21 50-year-old female with known history of diabetes mellitus and patient believes she has diet-controlled diabetes mellitus came in with the also on the lateral aspect of the right foot as well as an ulcer on the anterior abdominal wall on the left side lower abdomen. Both of these are around stage 3-4 ulcer appeared to be infected.. Patient is also complaining of swelling in the right leg. Patient was comparing of intractable pain along with neuropathic symptoms. Wound cultures were obtained patient was started on vancomycin infectious disease was consulted. 12/31/2020 Patient is evaluated for the bedside. She states that this diabetic woman happened about one week ago. Cultures are still pending. She is on IV Vanco. Infectious disease is following closely as well as wound care. Patient is afebrile, heart rate 95 sinus rhythm, blood pressure 158/83 inches 95% room air. Patient is a one pack per day smoker. She is a nicotine patch in place. Labs reviewed today include a sodium level of 135, [id number] glucose of over 200, hemoglobin A1c of 11.8, her CRP is 1.6. Venous Doppler was completed of her right leg which was negative for a DVT however there was an incidental finding of a possible right femoral artery occlusion, with evidence of right femoral artery thrombosis. We will consult vascular for evaluation as she is having quite a bit of pain in that right leg. We will also start patient on subcu heparin. 01/01/2021 Patient has an incidental finding of possible right femoral artery thrombosis because of his vascular surgery was consulted, vascular surgery is planning on either gram tomorrow as arterial Doppler is not available at this time. Patient won't cultures are positive for gram-negative bacilli for which patient is on cefepime and patient also has staph aureus for which patient is on vancomycin. Patient is still complaining of right groin and buttock pain, sharp in nature. She has a diabetic ulcer on her right stomach, right ankle, and 2 on her right calf. On IV cefepime. 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 Right foot appears more edematous and cooler in color than the left, however pedal pulses are still palpable. Plan is for a possible open femoral endartectomy with possible stent with Dr Byrne on Thursday. A1c is 11.8, we started patient on 10 of levemir and blood sugars have slowly improved. 01/03/2021 Patient is still pending for a femoral [address] Byrne. Her sodium level today is 134, blood sugars are in the low 200s. She is receiving [place] and IV morphine for pain to the right greater than right buttock. Her right foot today is still edematous however there is +2 dorsalis pedis pulse. She is in a nicotine patch. Culture of the right foot shows Pseudomonas and Staphylococcus aureus, she continues on IV cefepime. She is being followed closely by vascular surgery and infectious disease. Blood pressure today is 1 38/74, 91% on room air, heart rate 104. She remains afebrile. Blood pressures have improved after patient was started on lisinopril. Sodium has improved to 134. REVIEW OF SYSTEMS: CONSTITUTIONAL: No fever, no malaise, no fatigue. HEENT: No recent visual problems or hearing problems. Denied any sore throat. CARDIOVASCULAR: No chest pain, orthopnea, PND, no palpitations, no syncope. PULMONARY: No shortness of breath, no cough, no hemoptysis. GASTROINTESTINAL: No diarrhea, no nausea, no vomiting, no abdominal pain. NEUROLOGICAL: No headaches, no weakness, no numbness. MUSCULOSKELETAL/RHEUMATOLOGICAL: Does report significant burning pain to her right lower extremity. PHYSICAL EXAMINATION: GENERAL: The patient is alert and oriented x3, not in any acute distress. Well developed, well nourished. HEENT: Pupils are round and equally reacting to light. EOMI. No scleral icterus. No conjunctival pallor. Normocephalic, atraumatic. No pharyngeal erythema. No thyromegaly. CARDIOVASCULAR: S1 and S2 present. No murmurs, rubs, or gallops. PULMONARY: Chest is clear to auscultation, no wheezing or crackles. ABDOMEN: Soft, nontender, nondistended, normoactive bowel sounds. No palpable organomegaly. MUSCULOSKELETAL: No joint swelling or deformity. EXTREMITIES: No cyanosis, clubbing, mild edema to right foot +2 dorsalis pedis NEUROLOGICAL: Gross neurological examination did not reveal any focal deficits. SKIN: As mentioned above patient has a stage 3-4 ulcers in the right foot as well as left anterior abdominal wall both of which is cleared to be infected but the right foot ulcer is clean based abdominal ulcer has some purulent discharge. Assessment and plan -Infected diabetic foot as well as abdominal wall ulcer: IV cefepime, ID following -Uncontrolled type 2 diabetes mellitus patient doesn't use any medications at home patient will need oral hypoglycemic agents for now will continue sliding scale insulin and levemir, A1c is 11.8 -Pseudohyponatremia from hyperglycemia, improving 134 -Swelling of the right leg. Doppler shows a right femoral artery thrombosis wi th occlusion will consult vascular. Foot x-ray did not show any osteoarthritis -stenosis of the exernal iliac artery - procedure planned for thursday -Hypertension - started on lisinopril -Nicotine use: Counseling was provided will order 14 g of nicotine patch patient smokes about half a pack of cigarettes per day DVT prophylaxis: Lovenox GI Prophylaxis: Pepcid Open femoral endarectomy with possible stent planned for thursday. Add lisinopril for blood pressure control. Patient EKG done. She is cleared medically for procedure tomorrow. Repeat labs in the morning. Objective - Vital Signs Vital signs: Vital Signs Temp 97.6 F 01/03/21 13:54 Pulse 104 H 01/03/21 13:54 Resp 16 01/03/21 13:54 BP 138/74 01/03/21 13:54 Pulse Ox 91 L 01/03/21 13:54 Intake & Output 01/02/21 01/03/21 01/03/21 18:59 06:59 18:59 Intake Total 200 Output Total 400 Balance -200 Weight 95.254 kg Intake: IV 200 Output: Urine 400 Other: Voiding Method Toilet Toilet # Voids 4 3 - Labs CBC & Chem 7: 01/01/21 05:01 01/03/21 04:22 Labs: Abnormal Lab Results - Last 24 Hours (Table) 01/02/21 01/02/21 01/03/21 Range/Units 17:15 20:59 04:22 Sodium 134 L (137-145) mmol/L Creatinine 0.33 L (0.52-1.04) mg/dL Glucose 172 H (74-99) mg/dL POC Glucose (mg/dL) 143 H 206 H (75-99) mg/dL 01/03/21 01/03/21 Range/Units 07:22 11:19 Sodium (137-145) mmol/L Creatinine (0.52-1.04) mg/dL Glucose (74-99) mg/dL POC Glucose (mg/dL) 132 H 212 H (75-99) mg/dL Microbiology - Last 24 Hours (Table) 01/01/21 05:58 Gram Stain - Final Abdomen Wound Culture - Final Assessment and Plan Time with Patient: Greater than 30
[2021-01-03 17:10] LABS: Glucose,Whole Blood 226 mg/dL (75-99)
[2021-01-03 20:48] LABS: Glucose,Whole Blood 239 mg/dL (75-99)
[2021-01-03] MEDS: INSULIN DETEMIR (LEVEMIR) 100 UNIT/ML SYR SQ SCH (21:47)
[2021-01-04] MEDS: MORPHINE SULFATE 4 MG/ML SYRINGE IV PRN ×4 (01:11→20:32)
[2021-01-04] MEDS: HYDROcodone/APAP 7.5-325MG 1 EACH TAB PO PRN ×3 (03:01→21:50)
[2021-01-04 05:11] LABS: African American GFR (CKD) >90 (>60 ml/min/1.73 sqM); Anion Gap 6 mmol/L; Blood Urea Nitrogen 11 mg/dL (7-17); Calcium 9.2 mg/dL (8.4-10.2); Carbon Dioxide 24 mmol/L (22-30); Chloride 106 mmol/L (98-107); Glucose 173 mg/dL (74-99); Non-African American GFR(CKD) >90 (>60 ml/min/1.73 sqM); Potassium 4.1 mmol/L (3.5-5.1); Sodium 136 mmol/L (137-145)
[2021-01-04 07:01] LABS: Glucose,Whole Blood 125 mg/dL (75-99)
--- NOTE | 2021-01-04 07:02 | PN ---
PROGRESS NOTE DATE OF SERVICE: 01/03/2021 REASON FOR FOLLOWUP: Right lower extremity wound cellulitis and abdominal wall wound. INTERVAL HISTORY: Patient is afebrile. The patient is breathing comfortably. The patient denies having any chest pain. No shortness of breath or cough. No vomiting or diarrhea. PHYSICAL EXAMINATION: Blood pressure is 141/74 with a pulse of 71, temperature 98.4, she is 92% on room air. General description is a middle-aged female lying in bed in no distress. Respiratory system: Unlabored breathing, clear to auscultation anteriorly. Heart S1, S2. Regular rate and rhythm. Abdomen: Soft. No tenderness. Leg wounds are currently dressed. No obvious drainage on the dressing. LABS: BUN of 11, creatinine 0.33. DIAGNOSTIC IMPRESSION AND PLAN: Patient with right lower extremity abdominal wall wound and cellulitis. Culture positive for MSSA and Pseudomonas. Patient is covered with cefepime to continue waiting for surgical intervention for possible and continue supportive care. MMODL / IJN: [id number] /
[2021-01-04] MEDS: INSULIN ASPART (NovoLOG) 100 UNIT/ML VIAL SQ SCH ×4 (08:32→20:31)
[2021-01-04] MEDS: CEFEPIME 2 GM in SODIUM CHLORIDE 0.9% 100 ML IVPB SCH ×3 (08:42→23:21)
[2021-01-04] MEDS: NICOTINE 14MG/24HR PATCH TRANSDERM SCH (08:44)
[2021-01-04] MEDS: SODIUM CHLORIDE 0.9% 1,000 ML IV SCH ×2 (08:53→20:33)
[2021-01-04 09:12] LABS: Basophils # (A) 0.07 X 10*3/uL (0.00-0.10); Basophils % (A) 0.8 %; Eosinophils # (A) 0.21 X 10*3/uL (0.04-0.35); Eosinophils % (A) 2.5 %; HCT 39.8 % (37.2-46.3); HGB 12.5 g/dL (12.0-15.0); Lymphocytes # (A) 2.13 X 10*3/uL (0.90-5.00); Lymphocytes % (A) 25.8 %; MCH 26.4 pg (27.0-32.0); MCHC 31.4 g/dL (32.0-37.0); Mean Platelet Volume 11.2 fL (9.5-12.2); Monocytes # (A) 0.65 X 10*3/uL (0.20-1.00); Monocytes % (A) 7.9 %; Neutrophils # (A) 5.16 X 10*3/uL (1.80-7.70); Neutrophils % (A) 62.6 %; Platelet Count 231 X 10*3/uL (140-440); RBC 4.74 X 10*6/uL (4.10-5.20); RDW 13.2 % (11.5-14.5); WBC 8.25 X 10*3/uL (4.50-10.00)
[2021-01-04] MEDS: PREGABALIN 100 MG CAP PO SCH ×2 (10:37→20:31)
[2021-01-04] MEDS: lisinopriL 10 MG TAB PO SCH ×3 (10:37→10:43)
[2021-01-04] MEDS: FAMOTIDINE 20 MG TAB PO SCH ×2 (10:37→20:31)
[2021-01-04 11:54] LABS: Glucose,Whole Blood 146 mg/dL (75-99)
[2021-01-04] MEDS ORDERED: NITROGLYCERIN-D5W PMX 50 MG/250 ML BOTTLE IV ONE (13:00)
[2021-01-04] MEDS ORDERED: MIDAZOLAM 2 MG/2 ML VIAL ONE (13:00)
[2021-01-04] MEDS ORDERED: PHENYLEPHRINE-0.9% NACL SYG 1,000 MCG/10 ML SYRINGE ONE (13:00)
[2021-01-04] MEDS ORDERED: PROPOFOL 10 MG/ML 20 ML VIAL IV ONE (13:00)
[2021-01-04] MEDS ORDERED: GLYCOPYRROLATE 0.2 MG/ML 2 ML VIAL ONE (13:00)
[2021-01-04] MEDS ORDERED: LABETALOL 5 MG/ML VIAL MDV ONE (13:00)
[2021-01-04] MEDS ORDERED: .MORPHINE SULFATE (INJ) 10 MG/ML SYRINGE ONE (13:00)
[2021-01-04] MEDS ORDERED: NEOSTIGMINE 1 MG/ML 10 ML VIAL ONE (13:00)
[2021-01-04] MEDS ORDERED: ROCURONIUM 10 MG/ML (5 ML VIAL) IV ONE (13:00)
[2021-01-04] MEDS ORDERED: fentaNYL (PF) 50 MCG/ML 2 ML AMP ONE (13:00)
[2021-01-04] MEDS ORDERED: SUCCINYLCHOLINE CHLORIDE 100 MG/5 ML SYR IV ONE (13:00)
[2021-01-04] MEDS ORDERED: HEPARIN SODIUM,PORCINE 10,000 UNIT/ML 1 ML VIAL ONE (13:00)
[2021-01-04] MEDS ORDERED: LIDOCAINE 1% INJ 10MG/ML (20 ML MDV) ONE (13:00)
[2021-01-04] MEDS ORDERED: CLINDAMYCIN 150 MG/ML 4 ML VIAL ONE (13:00)
[2021-01-04] MEDS ORDERED: HYDROmorphone (PF) 1 MG/ML ONE (13:00)
--- NOTE | 2021-01-04 15:24 | PN ---
PROGRESS NOTE DATE OF SERVICE: 01/04/2021 REASON FOR FOLLOWUP: Abdominal wound and right lower extremity wound and cellulitis. INTERVAL HISTORY: The patient is afebrile. The patient is currently breathing comfortably. Denies having any chest pain, shortness of breath or cough. She is currently waiting for surgical intervention, right lower extremity. PHYSICAL EXAMINATION: Blood pressure is 166/95, pulse of 78, temperature 97.7. She is 93% on room air. General description is a middle-aged female up in the bed in no distress. RESPIRATORY SYSTEM: Unlabored breathing. Clear to auscultation anteriorly. HEART: S1, S2. Regular rate and rhythm. ABDOMEN: Soft. No tenderness. Right foot wound is currently dressed. No drainage on the dressing. LABS: Hemoglobin is 12.5, white count 8.25, creatinine 0.32. DIAGNOSTIC IMPRESSION AND PLAN: Patient with a right lower extremity wound and cellulitis with underlying destruction seen on the angiogram. Waiting for the vascular intervention. Culture has been positive for MSSA patient is covered with cefepime. That will be continued for now and monitor her clinical course closely. Continue supportive care. MMODL / IJN: [id number] /
[2021-01-04] MEDS ORDERED: IOPAMIDOL-370 50ML BTL INJ ONE ×2 (16:33→17:36)
[2021-01-04] MEDS ORDERED: IOPAMIDOL-250 100ML BTL INTRAARTER ONE (17:35)
[2021-01-04] MEDS ORDERED: IV FLUID CONTINUATION 1,000 ML IV ONE (17:36)
[2021-01-04] MEDS ORDERED: LACTATED RINGERS 1,000 ML IV ONE (17:37)
[2021-01-04 17:47] LABS: Basophils # (A) 0.1 k/uL (0-0.2); Basophils % (A) 1 %; Eosinophils # (A) 0.1 k/uL (0-0.7); Eosinophils % (A) 1 %; HCT 33.4 % (34.0-46.0); Lymphocytes # (A) 2.6 k/uL (1.0-4.8); Lymphocytes % (A) 25 %; MCHC 32.8 g/dL (31.0-37.0); MCV 85.2 fL (80.0-100.0); Mean Platelet Volume 8.5; Monocytes # (A) 0.4 k/uL (0-1.0); Monocytes % (A) 4 %; Neutrophils # (A) 6.9 k/uL (1.3-7.7); Neutrophils % (A) 68 %; Platelet Count 220 k/uL (150-450); RBC 3.92 m/uL (3.80-5.40); RDW 13.1 % (11.5-15.5); WBC 10.2 k/uL (3.8-10.6)
[2021-01-04] MEDS ORDERED: THROMBIN (BOVINE) 5,000 UNIT VIAL TOPICAL ONE (18:00)
--- NOTE | 2021-01-04 18:40 | PN ---
PROGRESS NOTE DATE OF SERVICE: 01/04/2021 This 50-year-old woman who was admitted with infected diabetic foot as well as abdominal wall ulcer is being closely monitored. Patient is on IV cefepime. The cultures are growing Pseudomonas aeruginosa and Staph aureus which is MSSA. No chest pain. No palpitations. No fever. Pseudomonas sensitive. PHYSICAL EXAMINATION: Alert and oriented x3. Pulse is 78, blood pressure 163/95, respiration 18, temperature 97.7, pulse ox 93% on room air. HEENT: Conjunctivae normal. NECK: No jugular venous distention. CARDIOVASCULAR: S1, S2 muffled. RESPIRATION: Breath sounds diminished at the bases. No rhonchi. No crackles. ABDOMEN: Soft. LEGS: Ulcer present. NERVOUS SYSTEM: No focal deficit. LABS: Glucose 125, 146. ASSESSMENT: 1. Infected diabetic foot ulcer as well as abdominal wall ulcer with Pseudomonas and MSSA, on cefepime. 2. Diabetes mellitus, type 2, uncontrolled. 3. Pseudohyponatremia. 4. Swelling of the right leg. 5. Stenosis of external iliac artery. 6. Hypertension. 7. History of nicotine dependence. RECOMMENDATIONS AND DISCUSSION: I recommend to continue current medications, continue with symptomatic treatment. The patient underwent thromboendarterectomy as well as possible patch angioplasty today. We will continue to monitor. Guarded prognosis. Further recommendations to follow. MMODL / IJN: [id number] / MTDD
--- NOTE | 2021-01-04 18:41 | IR ---
Fluoroscopy HISTORY: Peripheral arterial disease 20.7 minutes fluoroscopy time supplied to the referring clinician. 1224 intraoperative C-arm images document the procedure. See dictated report from vascular surgery.
--- NOTE | 2021-01-04 18:53 | P.OP ---
Date of Procedure: 01/04/21 Description of Procedure: Preoperative diagnosis: [place] 5 peripheral arterial disease, [Right] femoral artery occlusive disease Postoperative diagnosis: Same Procedure: [Right] femoral thrombo-endarterectomy with patch angioplasty Right lower extremity angiogram popliteal artery right superficial femoral artery percutaneous transluminal balloon angioplasty 4 x 150 Right lower extremity is overt drug-eluting stent placement in the superficial femoral artery 6 x 140, 6 x 140, 7 x 100, 7 x 37 balloon expandable Aortoiliac angiogram Percutaneous transluminal balloon angioplasty and stent of the external iliac artery 7 x 57 Surgeon: Georgie Byrne D.O. EBL: [300] IV fluids: [See records] Urine output: [See records] Drains: [None] Complications: [None immediately apparent] Condition: [Stable to recovery] Operative indication and findings: [Patient is a 50-year-old female who about 3- 4 weeks ago began having increasing pain of her right lower extremity as well as subsequent development of wounds. She previously underwent an angiogram revealing a common femoral artery occlusion and no obvious superficial femoral artery with reconstitution at the popliteal artery is also some narrowing of the external iliac artery. Given these findings she was offered a hybrid procedure with an open femoral thromboendarterectomy and then endovascular options to the superficial femoral artery with a possible bypass if needed. Risks and benefits were discussed. She was cleared by medicine to undergo surgical intervention.] Procedure in detail: The patient was taken to the hybrid suite and placed in supine position. Bilateral groins and right lower extremity were prepped and draped in usual s terile fashion. A preprocedure timeout was performed and all parties are in agreement. A vertical incision was made in the [right] groin with the scalpel. It was deepened through subcutaneous tissues with electrocautery. The encountered lymphatics were ligated and divided. The femoral sheath was opened sharply. The common femoral artery was dissected free circumferentially. The dissection was extended proximally to the level of the inguinal ligament, and distally to include the superficial femoral and profunda femoris arteries. They were encircled with vessel loops. ACTs were monitored and the patient was heparinized. Once heparinization was adequate, flow was occluded through the vessel. An 11 blade was utilized and arteriotomy is made the Hernandez-Aleoj scissors was utilized to enlarge the arteriotomy. There was moderate amounts of thrombus as well as significant atherosclerotic disease. An endarterectomy was performed with an eversion endarterectomy at the profunda femoris. There was good backbleeding. There was minimal inflow from the proximal portion. Attempts were then made to access distally to pass a wire. Finally utilizing a an [id number] Aquiles the distal superficial femoral artery was accessed. An angiogram was performed showing luminal gain. At that point was decided to finish with the patch. The endarterectomized surface was cleared of all debris. A bovine pericardial patch was utilized and anastomosis was created utilizing 6-0 Prolene. The wire that was down the superficial femoral artery was placed through the patch. The anastomosis was flushed and flow was reinstituted. Hemostasis was achieved with interrupted sutures of 6-0 Prolene. At that point a 7-Occitan sheath was placed. A 4 x 150 balloon was placed in the superficial femoral artery and insufflated. Repeat angiogram revealed significant improvement therefore decided to go forward with drug-eluting stents. 6 x 1 40, 6 x 1 40 and 7 x 100s were placed. The more proximal portion a balloon expandable 7 x 37 was placed. It was then postdilated with a 6 by long balloon. Repeat angiogram was sufficiently improved with good flow and visualization of the TP trunk and an terior tibial artery. 2 vessels at the ankle. That point catheters and wires were removed. The patch was then sutured at the area where the sheath was placed it was reaccessed in the retrograde direction to treat the external iliac. Wires and catheters were used and an angiogram was performed. There was dissection in the retrograde direction but did not appear flow limiting when taken from antegrade image. Given the previous imaging of the external iliac artery it was decided to place a stent therefore a 7 x 57 stent was placed after 6x60 balloon angioplasty. After this performed and images taken. There was adequate flow and flushing through the common, internal and external iliac arteries as well as the common femoral artery and down into the superficial and profunda. There was some swirling in the common iliac, but did not appear to be flow-limiting. There was a good palpable pulse in the femoral artery. Catheters and wires removed and the femoral artery remained pulsatile. The sheath was removed and hemostasis was controlled with 6-0 Prolene. Thrombin and Gelfoam was placed. A Doppler was used and revealed multiphasic flow distal to the anastomosis. At that point, the wound was copiously irrigated with antibiotic solution. The femoral sheath was reapproximated with interrupted sutures of 3-0 Vicryl. The subcuticular tissue was reapproximated with 3-0 Vicryl. The skin was reprepped with running sutures of 4-0 Monocryl. Dressing was placed. The patient was awakened from surgery, extubated and transferred to PACU in stable condition and tolerated the procedure well. Conclusion of the procedure there was a strong biphasic posterior tibial and a weakly biphasic anterior tibial signal.
[2021-01-04 19:06] LABS: Glucose,Whole Blood 171 mg/dL (75-99)
[2021-01-04] MEDS ORDERED: GELATIN SPONGE,ABSORB (SMALL) 1 EACH SPONGE TOPICAL ONE (19:36)
[2021-01-04 20:07] LABS: Glucose,Whole Blood 187 mg/dL (75-99)
[2021-01-04] MEDS: INSULIN DETEMIR (LEVEMIR) 100 UNIT/ML SYR SQ SCH (20:32)
[2021-01-05] MEDS: MORPHINE SULFATE 4 MG/ML SYRINGE IV PRN ×5 (00:39→20:03)
[2021-01-05] MEDS: HYDROcodone/APAP 7.5-325MG 1 EACH TAB PO PRN ×3 (04:09→18:50)
[2021-01-05 06:14] LABS: Glucose,Whole Blood 129 mg/dL (75-99)
[2021-01-05] MEDS: INSULIN ASPART (NovoLOG) 100 UNIT/ML VIAL SQ SCH ×4 (06:18→21:29)
[2021-01-05] MEDS: NICOTINE 14MG/24HR PATCH TRANSDERM SCH (09:05)
[2021-01-05] MEDS: CLOPIDOGREL 75 MG TAB PO SCH (09:06)
[2021-01-05] MEDS: CEFEPIME 2 GM in SODIUM CHLORIDE 0.9% 100 ML IVPB SCH ×2 (09:06→17:23)
[2021-01-05] MEDS: ASPIRIN 81 MG PO SCH (09:06)
[2021-01-05] MEDS: lisinopriL 10 MG TAB PO SCH (09:06)
[2021-01-05] MEDS: PREGABALIN 100 MG CAP PO SCH ×2 (09:06→21:29)
[2021-01-05] MEDS: FAMOTIDINE 20 MG TAB PO SCH ×2 (09:06→21:29)
[2021-01-05 11:54] LABS: Glucose,Whole Blood 182 mg/dL (75-99)
--- NOTE | 2021-01-05 12:44 | P.PN ---
Subjective Progress Note Date: 01/05/21 Patient is seen and examined. Overall she is doing quite well. She has some tingling to the top of her foot but overall has much more feeling in her foot than previous. Right groin incision dressing intact. Right lower extremity warm. Strong multiphasic signals at DP and PT. Some motor to the great toes as previous. Improved coloration to the skin. Difficulty with ankle movement, minimal pain with passive range of motion. No calf tenderness. Compartments appeared soft Postoperative day #1 from right femoral endarterectomy and patch angioplasty with superficial femoral artery balloon angioplasty and stenting as well as external iliac artery stenting. Increase activity as tolerated. PT OT evaluation. Continue dual antiplatelet therapy. Objective - Vital Signs Vital signs: Vital Signs Temp 98.2 F 01/05/21 08:00 Pulse 99 01/05/21 08:00 Resp 18 01/05/21 08:00 BP 143/73 01/05/21 08:00 Pulse Ox 93 L 01/05/21 08:00 Intake & Output 01/04/21 01/05/21 01/05/21 18:59 06:59 18:59 Intake Total 1500 1320 120 Output Total 1650 600 500 Balance -150 720 -380 Weight 79.5 kg Intake: IV 1500 20 Invasive Line 3 10 Invasive Line 4 10 Oral 120 Tube Feeding 1300 Output: Urine 1350 600 500 Estimated Blood Loss 300 Other: Voiding Method Toilet Indwelling Catheter Indwelling Catheter - Labs CBC & Chem 7: 01/04/21 17:33 01/04/21 04:37 Labs: Abnormal Lab Results - Last 24 Hours (Table) 01/04/21 01/04/21 01/04/21 Range/Units 17:33 19:04 20:06 Hgb 11.0 L D (11.4-16.0) gm/dL Hct 33.4 L (34.0-46.0) % POC Glucose (mg/dL) 171 H 187 H (75-99) mg/dL 01/05/21 01/05/21 Range/Units 06:12 11:52 Hgb (11.4-16.0) gm/dL Hct (34.0-46.0) % POC Glucose (mg/dL) 129 H 182 H (75-99) mg/dL
[2021-01-05] MEDS: SODIUM CHLORIDE 0.9% 1,000 ML IV SCH (13:09)
--- NOTE | 2021-01-05 16:45 | PN ---
PROGRESS NOTE DATE OF SERVICE: 01/05/2021 REASON FOR FOLLOWUP: Abdominal wall and right lower extremity wound and cellulitis. INTERVAL HISTORY: Patient is afebrile. The patient is status post angioplasty and stent placement to the right lower extremity has tolerated the procedure. No nausea, no vomiting, no abdominal pain. No diarrhea. PHYSICAL EXAMINATION: Blood pressure is 143/73 with a pulse of 89, temperature 98.2. She is 93% on 2 L nasal cannula. General description is a middle-aged female lying in bed in no distress. Respiratory system: Unlabored breathing, clear to auscultation anteriorly. Heart S1, S2. Regular rate and rhythm. Abdomen soft, no tenderness. LABS: Hemoglobin is 11.9, white count 10.2. DIAGNOSTIC IMPRESSION AND PLAN: Patient with abdominal wound as well as right foot wound and cellulitis, status post angioplasty and stent placement on the right leg with obstruction. Culture has been positive for MSSA and Pseudomonas. Covered with cefepime, transition to oral antibiotic on discharge. Continue supportive care. MMODL / IJN: [id number] /
[2021-01-05 17:08] LABS: Glucose,Whole Blood 155 mg/dL (75-99)
[2021-01-05 20:11] LABS: Glucose,Whole Blood 185 mg/dL (75-99)
--- NOTE | 2021-01-05 21:19 | PN ---
PROGRESS NOTE DATE OF SERVICE: 01/05/2021 This 50-year-old woman was admitted with a significant infected diabetic foot ulcer on the right side. The patient had multiple lesions on the right side and Dr. Byrne has performed femoral thromboendarterectomy with patch angioplasty for significant vascular disease on the right side. Patient is being closely monitored. No chest pain. No palpitations. Past medical history reviewed. REVIEW OF SYSTEMS: CARDIOVASCULAR: No angina, palpitations. RESPIRATORY SYSTEM: As mentioned earlier. GI: As mentioned earlier. : No dysuria. NERVOUS SYSTEM: No numbness, weakness. CURRENT MEDICATIONS: Reviewed. They include [place] 7.5, cefepime, Pepcid, NovoLog, Levemir, Zestril. Doses are reviewed. PHYSICAL EXAMINATION: The patient is alert and oriented x3. Pulse is 90, blood pressure 149/74, respiration 18, temperature 98.2, pulse ox 93% on 2 L. HEENT: Conjunctivae normal. NECK: No jugular venous distention. CARDIOVASCULAR: S1, S2 muffled. RESPIRATION: Breath sounds diminished at the bases. A few scattered rhonchi and crackles. ABDOMEN: Soft. RIGHT LEG: Significant ulcerations and edema as well as skin changes are present. LABS: Glucose 155, sodium 136. ASSESSMENT: 1. Acute diabetic foot ulcer on the right side as well as abdominal wall ulcer with Pseudomonas and MSSA, on cefepime. 2. Arterial insufficiency and ischemic leg on the right, status post femoral thromboendarterectomy with patch angioplasty, right lower extremity, and angiogram of the popliteal artery. 3. Pseudohyponatremia. 4. Swelling of the right leg. 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 6. Hypertension. 7. History of nicotine dependence. 8. FULL CODE. RECOMMENDATIONS AND DISCUSSION: In this 50-year-old woman who presented with multiple complex medical issues, we will monitor the patient closely, continue the current medications, continue symptomatic treatment. Repeat labs. Continue the antiplatelet agents. Continue with empiric antibiotics. Continue with IV fluids. Prognosis is guarded because of multiple complex medical issues. Further recommendations to follow. MMODL / IJN: [id number] /
[2021-01-05] MEDS: INSULIN DETEMIR (LEVEMIR) 100 UNIT/ML SYR SQ SCH (21:29)
[2021-01-05] MEDS: TEMAZEPAM 15 MG CAP PO PRN (22:04)
[2021-01-06] MEDS: CEFEPIME 2 GM in SODIUM CHLORIDE 0.9% 100 ML IVPB SCH ×4 (00:11→22:55)
[2021-01-06] MEDS: MORPHINE SULFATE 4 MG/ML SYRINGE IV PRN ×7 (00:11→22:50)
[2021-01-06] MEDS: SODIUM CHLORIDE 0.9% 1,000 ML IV SCH ×3 (00:12→23:16)
[2021-01-06] MEDS: HYDROcodone/APAP 7.5-325MG 1 EACH TAB PO PRN ×3 (03:20→17:56)
[2021-01-06 06:13] LABS: Glucose,Whole Blood 198 mg/dL (75-99)
[2021-01-06] MEDS: INSULIN ASPART (NovoLOG) 100 UNIT/ML VIAL SQ SCH ×4 (06:27→21:44)
[2021-01-06 08:04] LABS: Basophils # (A) 0.1 k/uL (0-0.2); Basophils % (A) 1 %; Eosinophils # (A) 0.2 k/uL (0-0.7); Eosinophils % (A) 2 %; HCT 38.4 % (34.0-46.0); HGB 12.4 gm/dL (11.4-16.0); Lymphocytes # (A) 1.9 k/uL (1.0-4.8); Lymphocytes % (A) 17 %; MCHC 32.3 g/dL (31.0-37.0); MCV 86.6 fL (80.0-100.0); Mean Platelet Volume 8.4; Monocytes # (A) 0.6 k/uL (0-1.0); Monocytes % (A) 5 %; Neutrophils # (A) 8.2 k/uL (1.3-7.7); Neutrophils % (A) 74 %; Platelet Count 206 k/uL (150-450); RBC 4.44 m/uL (3.80-5.40); RDW 12.8 % (11.5-15.5); WBC 11.2 k/uL (3.8-10.6)
[2021-01-06 08:14] LABS: African American GFR (CKD) >90 (>60 ml/min/1.73 sqM); Anion Gap 6 mmol/L; Blood Urea Nitrogen 10 mg/dL (7-17); Calcium 8.8 mg/dL (8.4-10.2); Carbon Dioxide 24 mmol/L (22-30); Chloride 105 mmol/L (98-107); Glucose 175 mg/dL (74-99); Non-African American GFR(CKD) >90 (>60 ml/min/1.73 sqM); Potassium 3.8 mmol/L (3.5-5.1); Sodium 135 mmol/L (137-145)
[2021-01-06] MEDS: NICOTINE 14MG/24HR PATCH TRANSDERM SCH (09:32)
[2021-01-06] MEDS: CLOPIDOGREL 75 MG TAB PO SCH (09:32)
[2021-01-06] MEDS: ASPIRIN 81 MG PO SCH (09:32)
[2021-01-06] MEDS: lisinopriL 10 MG TAB PO SCH (09:33)
[2021-01-06] MEDS: PREGABALIN 100 MG CAP PO SCH ×2 (09:33→21:44)
[2021-01-06] MEDS: FAMOTIDINE 20 MG TAB PO SCH ×2 (09:33→21:44)
--- NOTE | 2021-01-06 09:52 | P.PN ---
Subjective Progress Note Date: 01/06/21 Patient is seen and examined. Overall she continues to improve. Her foot pain is improving, only feels issues with the swelling and some pain in her groin. Able to move her ankle and foot Right groin incision dressing intact. Right lower extremity warm, reperfusion edema. Strong multiphasic signals at DP and PT. Improved range of motion of her ankle. No calf tenderness. Compartments appeared soft Postoperative day #2 from right femoral endarterectomy and patch angioplasty with superficial femoral artery balloon angioplasty and stenting as well as external iliac artery stenting. Continue activity. Dual adequate therapy, PTOT. Hopeful for discharge in next 24-48 hours. Obtain proper wound care consult Objective - Vital Signs Vital signs: Vital Signs Temp 98.4 F 01/06/21 03:30 Pulse 94 01/06/21 03:30 Resp 18 01/06/21 03:30 BP 135/67 01/06/21 03:30 Pulse Ox 92 L 01/06/21 03:30 Intake & Output 01/05/21 01/06/21 01/06/21 18:59 06:59 18:59 Intake Total 120 10 Output Total 500 1000 Balance -380 -990 Weight 79 kg Intake: IV 10 Invasive Line 3 10 Oral 120 Output: Urine 500 1000 Other: Voiding Method Indwelling Catheter Bedpan # Voids 1 - Labs CBC & Chem 7: 01/06/21 07:29 01/06/21 07:29 Labs: Abnormal Lab Results - Last 24 Hours (Table) 01/05/21 01/05/21 01/05/21 Range/Units 11:52 17:07 20:10 WBC (3.8-10.6) k/uL Neutrophils # (1.3-7.7) k/uL Sodium (137-145) mmol/L Creatinine (0.52-1.04) mg/dL Glucose (74-99) mg/dL POC Glucose (mg/dL) 182 H 155 H 185 H (75-99) mg/dL 01/06/21 01/06/21 01/06/21 Range/Units 06:12 07:29 07:29 WBC 11.2 H (3.8-10.6) k/uL Neutrophils # 8.2 H (1.3-7.7) k/uL Sodium 135 L (137-145) mmol/L Creatinine 0.29 L (0.52-1.04) mg/dL Glucose 175 H (74-99) mg/dL POC Glucose (mg/dL) 198 H (75-99) mg/dL
[2021-01-06 11:48] LABS: Glucose,Whole Blood 160 mg/dL (75-99)
[2021-01-06 16:18] LABS: Glucose,Whole Blood 184 mg/dL (75-99)
--- NOTE | 2021-01-06 19:11 | PN ---
PROGRESS NOTE DATE OF SERVICE: 01/06/2021 This 50-year-old woman who was admitted with significant diabetic ulceration also had peripheral vascular disease. The patient underwent peripheral artery procedure by Dr. Byrne yesterday. No chest pain. No palpitations. The patient also had Pseudomonas aeruginosa and Staph aureus grown from the cultures also. PAST MEDICAL HISTORY: Reviewed. REVIEW OF SYSTEMS: CARDIOVASCULAR: No angina. RESPIRATORY No cough, no hemoptysis. GI As mentioned earlier. No dysuria or hematuria. NERVOUS No numbness or weakness. CURRENT MEDICATIONS: Reviewed include [place], aspirin, cefepime, Pepcid, NovoLog, Levemir. Doses and other medications reviewed. PHYSICAL EXAM: Patient is alert and oriented x3. Pulse 90, blood pressure 128/60, respiration 16, temperature 97.9, pulse ox 94% on 2 L. HEENT: Conjunctivae normal. Oral mucosa moist. NECK: No jugular venous distention. No lymph node enlargement. CARDIOVASCULAR: S1, S2, muffled. No S3, no S4, RESPIRATORY: Diminished breath sounds at the bases. A few scattered rhonchi. ABDOMEN: Soft, nontender. LEGS: Right leg is some edematous. The color is improved. Ischemic changes also improved. Multiple ulcerations present. NERVOUS SYSTEM: No focal deficits. LABS: WBC 11.2. Glucose 175. ASSESSMENT: 1. Acute diabetic foot ulcer on the right side as well as abdominal wall ulcer with Pseudomonas and MSSA on cefepime. 2. Peripheral artery insufficiency and ischemic leg on the right status post femoral thromboendarterectomy with patch angioplasty, right lower extremity and angiogram of the popliteal artery. 3. Pseudohyponatremia. 4. Swelling of the right leg. 5. History of stenosis of external iliac artery. 6. Hypertension. 7. History of nicotine dependence. 8. FULL CODE. RECOMMENDATIONS AND DISCUSSION: Continue current management. Continue the broad-spectrum IV antibiotics. Cultures are as above. Continue with Plavix. Continue the rest of the medications. Prognosis guarded. Further recommendations to follow. MMODL / IJN: [id number] /
[2021-01-06 20:53] LABS: Glucose,Whole Blood 225 mg/dL (75-99)
[2021-01-06] MEDS: INSULIN DETEMIR (LEVEMIR) 100 UNIT/ML SYR SQ SCH (21:44)
[2021-01-06] MEDS: TEMAZEPAM 15 MG CAP PO PRN (22:55)
[2021-01-07] MEDS: HYDROcodone/APAP 7.5-325MG 1 EACH TAB PO PRN ×4 (00:51→20:33)
--- NOTE | 2021-01-07 02:36 | PN ---
PROGRESS NOTE DATE OF SERVICE: 01/06/2021 REASON FOR FOLLOWUP: Right lower extremity and abdominal wall wound and cellulitis. INTERVAL HISTORY: Patient is afebrile. The patient is breathing comfortably. Has been complaining of some pain to the right lower extremity. No chest pain, shortness of breath or cough. Abdominal wounds are currently healing. PHYSICAL EXAMINATION: Blood pressure 128/68 with a pulse of 90. Temperature of 97.9. She is 95% on 2 L nasal cannula. General description is a middle-aged female lying in bed in no distress. Respiratory system: Unlabored breathing, decreased intensity of breath sounds. No wheeze. Heart S1, S2. Regular rate and rhythm. Abdomen soft, no tenderness. Extremities: No edema of the feet. LABS: Hemoglobin is 12.4, white count 11.2, creatinine 0.29. DIAGNOSTIC IMPRESSION AND PLAN: Patient with abdominal wall right lower extremity wound cellulitis. This patient did have evidence of obstruction status post PTCA and stent placement to the right leg. Wound culture positive for MSSA, Pseudomonas. Patient is on cefepime. Transition to oral antibiotic on discharge. Continue supportive care. MMODL / IJN: [id number] /
[2021-01-07] MEDS: MORPHINE SULFATE 4 MG/ML SYRINGE IV PRN ×5 (02:49→22:27)
[2021-01-07 06:04] LABS: Glucose,Whole Blood 132 mg/dL (75-99)
[2021-01-07] MEDS: INSULIN ASPART (NovoLOG) 100 UNIT/ML VIAL SQ SCH ×4 (06:21→20:33)
[2021-01-07] MEDS: NICOTINE 14MG/24HR PATCH TRANSDERM SCH (08:13)
[2021-01-07] MEDS: lisinopriL 10 MG TAB PO SCH (08:14)
[2021-01-07] MEDS: CEFEPIME 2 GM in SODIUM CHLORIDE 0.9% 100 ML IVPB SCH ×3 (08:14→23:01)
[2021-01-07] MEDS: PREGABALIN 100 MG CAP PO SCH ×2 (08:14→20:33)
[2021-01-07] MEDS: FAMOTIDINE 20 MG TAB PO SCH ×2 (08:14→20:33)
[2021-01-07] MEDS: CLOPIDOGREL 75 MG TAB PO SCH (08:14)
[2021-01-07] MEDS: ASPIRIN 81 MG PO SCH (08:14)
--- NOTE | 2021-01-07 08:47 | P.CONS ---
History of Present Illness - Reason for Consult Consult date: 01/07/21 wound care - History of Present Illness This is a 50-year-old patient being seen on [facility] for nonhealing ulcerations to the right lower extremity. Patient had a right femoral endarterectomy with patch angioplasty with superficial femoral artery balloon angioplasty and stenting as well as the external iliac artery stenting. Patient has multiple ulcerations to the right lower extremity a right lateral ulceration, right medial superior right medial inferior and a right lateral foot ulceration. The lower extremity leg ulcerations have an eschar On them. The right lateral leg ulceration measures approximately 1 x 1 x 0.1 cm, the right medial superior ulceration measures approximately 2.5 x 2.5 x 0.1 cm, right medial inferior ulceration measures 1 x 1 x 0.1 cm approximately. And right lateral foot ulceration with fatty layer exposure. Patient's past medical history significant for diabetes and peripheral vascular disease. Patient is a current every day smoker. Review Of Systems: Constitutional: No fever, no chills, no night sweats. No weight change. No weakness, fatigue or lethargy. No daytime sleepiness. Integumentary:reports wounds, no lesions. No rash or pruritus. No unusual bruising. No change in hair or nails. Physical exam: General Appearance: Alert, cooperative, no distress, appears stated age. Skin: See HPI all other Skin color, texture, tugor normal, no rashes or lesions. Neurologic: Alert oriented x3 Assessment: 1. Atherosclerosis of [place] arteries of right leg was ulceration of the calf 2. Atherosclerosis of [place] arteries of right leg with ulceration of ankle 3. Atherosclerosis of right leg with ulceration of other part of foot 4. Diabetic foot ulcer Plan: 1. All ulcerations: Apply honey gel, dry gauze, rolled gauze and secure with paper tape. Change Thursday. Patient would benefit from outpatient advance wound care. Patient is agreeable to come to the wound care center upon discharge. We'll be happy to see her. Thank you for the consultation any questions contact the wound care center DNP note has been reviewed and discussed with Dr. Jara and the impression and plan of care has been directed as dictated. Past Medical History Past Medical History: Diabetes Mellitus Additional Past Medical History / Comment(s): bowel obstruction, kidney stones History of Any Multi-Drug Resistant Organisms: None Reported Past Surgical History: Back Surgery, Bladder Surgery, Section, Cholecystectomy, Hernia Repair, Orthopedic Surgery Past Psychological History: No Psychological Hx Reported Smoking Status: Current every day smoker Past Alcohol Use History: Rare Past Drug Use History: None Reported Medications and Allergies Home Medications Medication Instructions Recorded Confirmed Type Omeprazole 20 mg PO HS 12/29/20 12/29/20 History Allergies Allergy/AdvReac Type Severity Reaction Status Date / Time buprenorphine [From Suboxone] Allergy Swelling Verified 12/29/20 21:06 duloxetine [From Cymbalta] Allergy Confusion Verified 12/29/20 21:06 naloxone [From Suboxone] Allergy Swelling Verified 12/29/20 21:06 NSAIDS (Non-Steroidal Allergy Unknown Verified 12/29/20 21:06 Anti-Inflamma Childhood Physical Exam Vitals: Vital Signs Temp Pulse Resp BP Pulse Ox 01/07/21 03:30 98.4 F 90 18 135/79 94 L 01/07/21 00:00 98.1 F 85 16 135/82 93 L 01/06/21 20:00 98.2 F 92 16 149/81 92 L 01/06/21 16:00 97.9 F 90 16 128/68 95 01/06/21 14:00 90 16 01/06/21 12:00 98.2 F 90 16 123/70 96 Intake and Output 01/06/21 01/07/21 01/07/21 22:59 06:59 14:59 Intake Total 240 10 Output Total 200 800 Balance 40 -790 Intake: IV 10 Invasive Line 3 10 Oral 240 Output: Urine 200 800 Other: Voiding Method Bedside Commode Bedside Commode # Voids 1 Weight 85.6 kg Results CBC & Chem 7: 01/06/21 07:29 01/06/21 07:29 Labs: Abnormal Lab Results - Last 24 Hours (Table) 01/06/21 01/06/21 01/06/21 Range/Units 11:46 16:17 20:30 POC Glucose (mg/dL) 160 H 184 H 225 H (75-99) mg/dL 01/07/21 Range/Units 05:42 POC Glucose (mg/dL) 132 H (75-99) mg/dL Assessment and Plan (1) Atherosclerosis of [place] arteries of right leg with ulceration of calf Current Visit: Yes Status: Acute Code(s): I70.232 - ATHSCL KAW ARTERIES OF RIGHT LEG W ULCERATION OF CALF SNOMED Code(s): 664441155 (2) Atherosclerosis of [place] arteries of right leg with ulceration of ankle Current Visit: Yes Status: Acute Code(s): I70.233 - ATHSCL KAW ARTERIES OF RIGHT LEG W ULCERATION OF ANKLE SNOMED Code(s): 657682956 (3) Atherosclerosis of [place] arteries of right leg with ulceration of other part of foot Current Visit: Yes Status: Acute Code(s): I70.235 - ATHSCL KAW ARTERIES OF RIGHT LEG W ULCER OTH PRT FOOT SNOMED Code(s): 594272551 (4) Diabetic foot ulcer Current Visit: Yes Status: Acute Code(s): E11.621 - TYPE 2 DIABETES MELLITUS WITH FOOT ULCER; L97.509 - NON-PRESSURE CHRONIC ULCER OTH PRT UNSP FOOT W UNSP SEVERITY SNOMED Code(s): 250914230
[2021-01-07 11:45] LABS: Glucose,Whole Blood 168 mg/dL (75-99)
[2021-01-07 16:22] LABS: Glucose,Whole Blood 171 mg/dL (75-99)
--- NOTE | 2021-01-07 16:40 | P.PN ---
Subjective Progress Note Date: 01/07/21 Patient seen and examined. No acute changes through the night. She is postop day #3 for right femoral endarterectomy and patch angioplasty with superficial femoral artery balloon angioplasty and stenting as well as external iliac artery stenting. States that she has some pain in her toes and still has pain in her foot especially with palpation or pressure. She is able to move her right lower extremity ankle and foot. Right groin dressing intact. Right lower extremity edema, warm to the touch, good capillary refill. Objective - Vital Signs Vital signs: Vital Signs Temp 97.9 F 01/07/21 11:53 Pulse 89 01/07/21 11:53 Resp 20 01/07/21 11:53 BP 147/75 01/07/21 11:53 Pulse Ox 97 01/07/21 11:53 Intake & Output 01/06/21 01/07/21 01/07/21 18:59 06:59 18:59 Intake Total 240 10 480 Output Total 1000 800 900 Balance -760 -790 -420 Weight 85.6 kg Intake: IV 10 Invasive Line 3 10 Oral 240 480 Output: Urine 1000 800 900 Other: Voiding Method Bedside Commode Bedside Commode # Voids 1 # Bowel Movements 1 - Exam General appearance: The patient is alert, oriented, in no acute distress. HET: Head is normocephalic and atraumatic. s. Neck: Supple without lymphadenopathy. Trachea midline. Extremities: Right lower extremity edema. Right foot pink, warm to the touch with good capillary refill. Areas on distal aspects of toes with discoloration. Palpable dorsalis pedis pulse. Right groin with Prevena dressing intact. Patient able to move her toes foot and ankle. Neurological: No focal deficits. Strength and sensation are grossly intact. - Labs CBC & Chem 7: 01/06/21 07:29 01/06/21 07:29 Labs: Abnormal Lab Results - Last 24 Hours (Table) 01/06/21 01/07/21 01/07/21 Range/Units 20:30 05:42 11:43 POC Glucose (mg/dL) 225 H 132 H 168 H (75-99) mg/dL 01/07/21 Range/Units 16:20 POC Glucose (mg/dL) 171 H (75-99) mg/dL Microbiology - Last 24 Hours (Table) 10/05/21 05:58 Anaerobic Culture - Final Abdomen Staphylococcus aureus Assessment and Plan Assessment: 1. Postop day #3 for right femoral endarterectomy and patch angioplasty with superficial femoral artery balloon angioplasty and stenting as well as external iliac artery stenting 2. Diabetic ulcers of right lower extremity 3. [place] 5 peripheral arterial disease, right femoral artery occlusive disease 4. History of diabetes mellitus 5. Current every day smoker Plan: 1. Continue dual anti-platelet therapy 2. Continue Prevena dressing for seven days and then remove and discard 3. Continue IV antibiotics per recommendations from infectious disease 4. Wound care clinic consulted, continue local wound care per their recommendations. The patient is stable and cleared for discharge from a vascular surgical standp oint. She will need to follow-up with Dr. Byrne in one week. The impression and plan of care has been dictated as directed. I performed a history and examination of this patient, discussed the same with the dictator. I agree with the dictator's note ,documented as a scribe. Any additional findings or plans will be noted.
--- NOTE | 2021-01-07 18:28 | PN ---
PROGRESS NOTE DATE OF SERVICE: 01/07/2021. This 50-year-old woman who was admitted with a significant diabetic ulceration also had peripheral vascular disease. The patient had angioplasty by Dr. Byrne. No chest pain. No palpitations. No fever. PHYSICAL EXAMINATION: Alert and oriented x3. Pulse 91, blood pressure 162/83, respiration 28, temperature 98.4, pulse ox 94% on 1 L. HEENT: Conjunctivae normal. NECK: No jugular venous distention. CARDIOVASCULAR: S1, S2 muffled. RESPIRATION: Breath sounds diminished at the bases. No rhonchi. No crackles. ABDOMEN: Soft. LEGS: Right leg swelling and ulceration and edema present. NERVOUS SYSTEM: No focal deficit. LABS: Sodium 135. ASSESSMENT: 1. Acute diabetic foot ulcer on right side as well as abdominal wall ulcer with Pseudomonas and MSSA, on cefepime. 2. Peripheral arterial insufficiency and ischemic leg on the right, status post femoral thromboendarterectomy and patch angioplasty in right lower extremity, angiogram and popliteal artery. 3. Pseudohyponatremia. 4. Swelling of the right leg. 5. 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 6. Hypertension. 7. History of nicotine dependence. 8. FULL CODE. RECOMMENDATIONS AND DISCUSSION: I recommend to continue current medications, continue with symptomatic treatment. Multiple cultures are growing Staph aureus which is MSSA and sensitive Pseudomonas also. Prognosis guarded. Closely follow with Infectious Disease as well as Vascular Surgery. Guarded prognosis. Further recommendations to follow. MMODL / IJN: [id number] /
[2021-01-07 20:21] LABS: Glucose,Whole Blood 202 mg/dL (75-99)
[2021-01-07] MEDS: INSULIN DETEMIR (LEVEMIR) 100 UNIT/ML SYR SQ SCH (20:33)
[2021-01-07] MEDS: SODIUM CHLORIDE 0.9% 1,000 ML IV SCH (20:40)
[2021-01-07] MEDS: TEMAZEPAM 15 MG CAP PO PRN (22:27)
[2021-01-08] MEDS: MORPHINE SULFATE 4 MG/ML SYRINGE IV PRN ×6 (02:34→23:55)
[2021-01-08] MEDS: HYDROcodone/APAP 7.5-325MG 1 EACH TAB PO PRN ×3 (03:42→18:36)
[2021-01-08 06:04] LABS: Glucose,Whole Blood 179 mg/dL (75-99)
[2021-01-08] MEDS: SODIUM CHLORIDE 0.9% 1,000 ML IV SCH ×2 (06:06→21:19)
[2021-01-08] MEDS: INSULIN ASPART (NovoLOG) 100 UNIT/ML VIAL SQ SCH ×4 (06:38→21:17)
[2021-01-08] MEDS: FAMOTIDINE 20 MG TAB PO SCH ×2 (08:20→21:17)
[2021-01-08] MEDS: PREGABALIN 100 MG CAP PO SCH ×2 (08:20→21:17)
[2021-01-08] MEDS: ASPIRIN 81 MG PO SCH (08:20)
[2021-01-08] MEDS: lisinopriL 10 MG TAB PO SCH (08:20)
[2021-01-08] MEDS: NICOTINE 14MG/24HR PATCH TRANSDERM SCH (08:20)
[2021-01-08] MEDS: CLOPIDOGREL 75 MG TAB PO SCH (08:20)
[2021-01-08] MEDS: CEFEPIME 2 GM in SODIUM CHLORIDE 0.9% 100 ML IVPB SCH ×3 (08:20→23:54)
--- NOTE | 2021-01-08 10:51 | P.PN ---
Subjective Progress Note Date: 01/08/21 Patient seen and examined. No acute changes through the night. She is postop day #4 for right femoral endarterectomy and patch angioplasty with superficial femoral artery balloon angioplasty and stenting as well as external iliac artery stenting. States that she has some pain in her foot. She is able to move her right lower extremity ankle and foot. Right groin dressing intact. Right lower extremity edema, warm to the touch, good capillary refill. Objective - Vital Signs Vital signs: Vital Signs Temp 98.1 F 01/08/21 03:45 Pulse 85 01/08/21 03:45 Resp 18 01/08/21 03:45 BP 153/69 01/08/21 03:45 Pulse Ox 94 L 01/08/21 03:45 Intake & Output 01/07/21 01/08/21 01/08/21 18:59 06:59 18:59 Intake Total 1420 Output Total 900 1280 Balance 520 -1280 Weight 84.5 kg Intake: Intake, IV Titration 700 Amount Cefepime 2 gm In Sodium 100 Chloride 0.9% 100 ml @ 25 mls/hr IVPB Q8HR [facility] Rx# :[id number] Sodium Chloride 0.9% 1, 600 000 ml @ 75 mls/hr IV . [id number] [facility] Rx#:[id number] Oral 720 Output: Urine 900 1280 Other: Voiding Method Bedside Commode # Voids 1 # Bowel Movements 1 - Exam General appearance: The patient is alert, oriented, in no acute distress. HET: Head is normocephalic and atraumatic. s. Neck: Supple without lymphadenopathy. Trachea midline. Extremities: Right lower extremity re-perfusion edma edema. Right foot pink, warm to the touch with good capillary refill. Areas on distal aspects of toes with discoloration/demarcation Palpable dorsalis pedis pulse. Right groin with Prevena dressing intact. Patient able to move her toes foot and ankle. Neurological: No focal deficits. Strength and sensation are grossly intact. - Labs CBC & Chem 7: 01/06/21 07:29 01/06/21 07:29 Labs: Abnormal Lab Results - Last 24 Hours (Table) 01/07/21 01/07/21 01/07/21 Range/Units 11:43 16:20 20:20 POC Glucose (mg/dL) 168 H 171 H 202 H (75-99) mg/dL 01/08/21 Range/Units 06:03 POC Glucose (mg/dL) 179 H (75-99) mg/dL Microbiology - Last 24 Hours (Table) 01/01/21 05:58 Anaerobic Culture - Final Abdomen Staphylococcus aureus Assessment and Plan Assessment: 1. Postop day #4 for right femoral endarterectomy and patch angioplasty with superficial femoral artery balloon angioplasty and stenting as well as external iliac artery stenting 2. Diabetic ulcers of right lower extremity 3. [place] 5 peripheral arterial disease, right femoral artery occlusive disease 4. History of diabetes mellitus 5. Current every day smoker Plan: 1. Continue dual anti-platelet therapy 2. Continue Prevena dressing for six days and then remove and discard 3. Continue IV antibiotics per recommendations from infectious disease 4. Physical therapy on consult 5. Wound care clinic consulted, continue local wound care per their recommendat ions. 6. Post op shoe to right foot The patient is stable and cleared for discharge from a vascular surgical standpoint. She will need to follow-up with Dr. Byrne in one week. The impression and plan of care has been dictated as directed. I performed a history and examination of this patient, discussed the same with the dictator. I agree with the dictator's note ,documented as a scribe. Any additional findings or plans will be noted.
[2021-01-08 11:50] LABS: Glucose,Whole Blood 136 mg/dL (75-99)
--- NOTE | 2021-01-08 13:03 | PN ---
PROGRESS NOTE DATE OF SERVICE: 01/08/2021 REASON FOR FOLLOWUP: Right lower extremity and abdominal wall wound and cellulitis. INTERVAL HISTORY: The patient is afebrile. The patient is breathing comfortably. No chest pain, shortness of breath or cough. No abdominal pain. Pain to the leg is currently controlled. No vomiting or diarrhea. PHYSICAL EXAMINATION: Blood pressure 147/73 with a pulse of 90, temperature 98.1. She is 96% on room air. General description is is a middle-aged female up in the chair in no distress. RESPIRATORY SYSTEM: Unlabored breathing. Clear to auscultation anteriorly. HEART: S1, S2. Regular rate and rhythm. ABDOMEN: Soft. No tenderness. Wound is currently dressed. No obvious drainage on the dressing. DIAGNOSTIC IMPRESSION AND PLAN: Patient with a right lower extremity as well abdominal wall wound and cellulitis; culture with MSSA and Pseudomonas, covered with cefepime. Transition to oral antibiotic on discharge. Local care to continue per Surgery. Continue with supportive care. MMODL / IJN: [id number] /
[2021-01-08 16:32] LABS: Glucose,Whole Blood 215 mg/dL (75-99)
--- NOTE | 2021-01-08 16:53 | P.PN ---
Subjective Progress Note Date: 01/08/21 This is a 50-year-old female who was recently admitted with significant diabetic ulceration also peripheral vascular disease and recently underwent angioplasty with Dr. Byrne vascular surgery. Infectious disease also following and patient is maintained on IV antibiotics with possible transition to oral antibiotics on discharge. Patient continues to be weak requiring assistance and will await PT/OT evaluation. Patient states she would like to return home and does not want to go to rehab. Will await PT/OT evaluation. Patient denies any chest pain, shortness of breath, or palpitations. Patient is afebrile. No reports of nausea or vomiting noted and patient is tolerating diet. Will repeat a.m. labs and continue to monitor closely. Review of systems: Constitutional: No reports of fatigue, fever, or chills Cardiovascular: No reports of chest pain or palpitations Respiratory: No reports of shortness of breath or cough GI: No reports of nausea, vomiting, or diarrhea : No reports of dysuria or retention Neurovascular: reports of generalized weakness All medications have been reviewed Active Medications Hydrocodone Bitart/Acetaminophen (Hydrocodone/Apap 7.5-325mg 1 Each Tab) 1 each PO Q6HR PRN PRN Reason: Pain Last Admin: 01/08/21 12:27 Dose: 1 each Documented by: Aspirin (Aspirin 81 Mg) 81 mg PO DAILY [facility] Last Admin: 01/08/21 08:20 Dose: 81 mg Documented by: Clopidogrel Bisulfate (Clopidogrel 75 Mg Tab) 75 mg PO DAILY [facility] Last Admin: 01/08/21 08:20 Dose: 75 mg Documented by: Famotidine (Famotidine 20 Mg Tab) 20 mg PO BID [facility] Last Admin: 01/08/21 08:20 Dose: 20 mg Documented by: Cefepime HCl 2 gm/ Sodium (Chloride) 100 mls @ 25 mls/hr IVPB Q8HR [facility] Last Admin: 01/08/21 15:43 Dose: 25 mls/hr Documented by: Sodium Chloride (Saline 0.9%) 1,000 mls @ 75 mls/hr IV .[id number] [facility] Last Admin: 01/08/21 06:06 Dose: Not Given Documented by: Insulin Aspart (Insulin Aspart (Novolog) 100 Unit/Ml Vial) 0 unit SQ ACHS [facility]; Protocol Last Admin: 01/08/21 12:28 Dose: 1 unit Documented by: Insulin Detemir (Insulin Detemir (Levemir) 100 Unit/Ml Syr) 10 unit SQ HS [facility] Last Admin: 01/07/21 20:33 Dose: 10 unit Documented by: Lisinopril (Lisinopril 10 Mg Tab) 10 mg PO DAILY [facility] Last Admin: 01/08/21 08:20 Dose: 10 mg Documented by: Morphine Sulfate (Morphine Sulfate 4 Mg/Ml Syringe) 4 mg IV Q4HR PRN PRN Reason: Severe Pain Last Admin: 01/08/21 15:42 Dose: 4 mg Documented by: Naloxone HCl (Naloxone 0.4 Mg/Ml 1 Ml Vial) 0.2 mg IV Q2M PRN PRN Reason: Opioid Reversal Nicotine (Nicotine 14mg/24hr Patch) 1 patch TRANSDERM DAILY [facility] Last Admin: 01/08/21 08:20 Dose: 1 patch Documented by: Ondansetron HCl (Ondansetron 4 Mg/2 Ml Vial) 4 mg IVP Q8HR PRN PRN Reason: Nausea And Vomiting Last Admin: 01/05/21 17:14 Dose: 4 mg Documented by: Pregabalin (Pregabalin 100 Mg Cap) 100 mg PO BID [facility] Last Admin: 01/08/21 08:20 Dose: 100 mg Documented by: Temazepam (Temazepam 15 Mg Cap) 15 mg PO HS PRN PRN Reason: Insomnia Last Admin: 01/07/21 22:27 Dose: 15 mg Documented by: Physical exam: Gen: This is a 50-year-old female awake, alert and oriented 3, well-developed, well-nourished. HEENT: Head is atraumatic, normocephalic. Pupils equal, round. Sclerae is anicteric. NECK: Supple. No JVD. No lymphadenopathy. No thyromegaly. LUNGS: Diminished breath sounds at the bases with no wheezing or rhonchi noted. No intercostal retractions. HEART: S1, S2 are muffled ABDOMEN: Soft. Bowel sounds are present. No masses. No tenderness. EXTREMITIES: No pedal edema. No calf tenderness. Right leg swelling with ulceration and edema noted NEUROLOGICAL: Patient is awake, alert and oriented x3. No focal deficits. Assessment: Acute diabetic foot ulcer on the right side as well as abdominal wall ulcer with Pseudomonas and MSSA, on cefepime Peripheral arterial insufficiency and ischemic leg on the right, status post femoral thromboendarterectomy and patch angioplasty and right lower extremity, angiogram and popliteal artery Pseudo-hyponatremia Swelling of the right leg History of stenosis and external iliac artery Hypertension History of nicotine dependence Full code plan: Recommend to continue with current medications, management, and symptomatic treatment. Infectious disease following closely and patient is maintained on IV antibiotics and will discuss about discharge antibiotics. Patient continues to be weak and will have PT/OT therapy evaluate the patient and discuss possible rehab although patient does not want to go to rehab. Will await PT therapy report. Case management and social work following. Due to multiple convex medical issues, prognosis is guarded. Possible discharge in 24-48 hours. Objective - Vital Signs Vital signs: Vital Signs Temp 98.1 F 01/08/21 08:00 Pulse 93 01/08/21 16:00 Resp 18 01/08/21 16:00 BP 170/93 01/08/21 16:00 Pulse Ox 94 L 01/08/21 16:00 Intake & Output 01/07/21 01/08/21 01/08/21 18:59 06:59 18:59 Intake Total 1420 180 Output Total 900 1280 800 Balance 520 -1280 -620 Weight 84.5 kg Intake: Intake, IV Titration 700 Amount Cefepime 2 gm In Sodium 100 Chloride 0.9% 100 ml @ 25 mls/hr IVPB Q8HR [facility] Rx# :[id number] Sodium Chloride 0.9% 1, 600 000 ml @ 75 mls/hr IV . [id number] [facility] Rx#:[id number] Oral 720 180 Output: Urine 900 1280 800 Other: Voiding Method Bedside Commode # Voids 1 2 # Bowel Movements 1 - Labs CBC & Chem 7: 01/06/21 07:29 01/06/21 07:29 Labs: Abnormal Lab Results - Last 24 Hours (Table) 01/07/21 01/08/21 01/08/21 Range/Units 20:20 06:03 11:48 POC Glucose (mg/dL) 202 H 179 H 136 H (75-99) mg/dL Microbiology - Last 24 Hours (Table) 01/01/21 05:58 Anaerobic Culture - Final Abdomen Staphylococcus aureus
[2021-01-08 19:47] LABS: Glucose,Whole Blood 201 mg/dL (75-99)
[2021-01-08] MEDS: INSULIN DETEMIR (LEVEMIR) 100 UNIT/ML SYR SQ SCH (21:17)
[2021-01-09] MEDS: HYDROcodone/APAP 7.5-325MG 1 EACH TAB PO PRN ×3 (02:11→15:24)
[2021-01-09] MEDS: MORPHINE SULFATE 4 MG/ML SYRINGE IV PRN ×3 (04:52→14:11)
[2021-01-09 05:45] LABS: Glucose,Whole Blood 146 mg/dL (75-99)
[2021-01-09] MEDS: INSULIN ASPART (NovoLOG) 100 UNIT/ML VIAL SQ SCH ×2 (06:32→12:14)
[2021-01-09] MEDS: CEFEPIME 2 GM in SODIUM CHLORIDE 0.9% 100 ML IVPB SCH ×2 (08:45→15:26)
[2021-01-09] MEDS: CLOPIDOGREL 75 MG TAB PO SCH (08:46)
[2021-01-09] MEDS: NICOTINE 14MG/24HR PATCH TRANSDERM SCH (08:46)
[2021-01-09] MEDS: FAMOTIDINE 20 MG TAB PO SCH (08:46)
[2021-01-09] MEDS: lisinopriL 10 MG TAB PO SCH (08:46)
[2021-01-09] MEDS: PREGABALIN 100 MG CAP PO SCH (08:46)
[2021-01-09] MEDS: ASPIRIN 81 MG PO SCH (08:46)
[2021-01-09 09:39] LABS: Basophils # (A) 0.1 k/uL (0-0.2); Basophils % (A) 1 %; Eosinophils # (A) 0.3 k/uL (0-0.7); Eosinophils % (A) 4 %; HCT 39.9 % (34.0-46.0); HGB 13.1 gm/dL (11.4-16.0); Lymphocytes # (A) 1.8 k/uL (1.0-4.8); Lymphocytes % (A) 27 %; MCH 28.1 pg (25.0-35.0); MCHC 32.9 g/dL (31.0-37.0); MCV 85.4 fL (80.0-100.0); Mean Platelet Volume 8.5; Monocytes # (A) 0.4 k/uL (0-1.0); Monocytes % (A) 6 %; Neutrophils # (A) 4.1 k/uL (1.3-7.7); Neutrophils % (A) 61 %; Platelet Count 263 k/uL (150-450); RBC 4.68 m/uL (3.80-5.40); RDW 12.7 % (11.5-15.5); WBC 6.7 k/uL (3.8-10.6)
[2021-01-09 09:49] LABS: African American GFR (CKD) >90 (>60 ml/min/1.73 sqM); Anion Gap 7 mmol/L; Blood Urea Nitrogen 10 mg/dL (7-17); Calcium 9.6 mg/dL (8.4-10.2); Carbon Dioxide 29 mmol/L (22-30); Chloride 101 mmol/L (98-107); Glucose 210 mg/dL (74-99); Non-African American GFR(CKD) >90 (>60 ml/min/1.73 sqM); Potassium 3.9 mmol/L (3.5-5.1); Sodium 137 mmol/L (137-145)
[2021-01-09] MEDS: SODIUM CHLORIDE 0.9% 1,000 ML IV SCH (11:04)
[2021-01-09 11:55] LABS: Glucose,Whole Blood 211 mg/dL (75-99)
[2021-01-09 12:17] VITALS: RESP 16
--- NOTE | 2021-01-09 14:26 | P.PN ---
Subjective Progress Note Date: 01/09/21 Patient seen and examined. No acute changes through the night. She is postop day #5 for right femoral endarterectomy and patch angioplasty with superficial femoral artery balloon angioplasty and stenting as well as external iliac artery stenting. States that she has some pain in her foot but improving. She is able to move her right lower extremity ankle and foot. Right groin dressing intact. Right lower extremity edema, warm to the touch, good capillary refill. Pain is for discharge today to possible rehab. Objective - Vital Signs Vital signs: Vital Signs Temp 98.4 F 01/09/21 08:40 Pulse 83 01/09/21 08:40 Resp 18 01/09/21 08:40 BP 137/73 01/09/21 08:40 Pulse Ox 97 01/09/21 08:40 Intake & Output 01/08/21 01/09/21 01/09/21 18:59 06:59 18:59 Intake Total 600 1180 236 Output Total 1200 2050 800 Balance -600 -870 -564 Weight 79.5 kg Intake: Intake, IV Titration 700 Amount Cefepime 2 gm In Sodium 200 Chloride 0.9% 100 ml @ 25 mls/hr IVPB Q8HR [facility] Rx# :[id number] Sodium Chloride 0.9% 1, 500 000 ml @ 75 mls/hr IV . [id number] [facility] Rx#:[id number] Oral 600 480 236 Output: Urine 1200 2050 800 Other: # Voids 2 # Bowel Movements 1 - Exam General appearance: The patient is alert, oriented, in no acute distress. HET: Head is normocephalic and atraumatic. s. Neck: Supple without lymphadenopathy. Trachea midline. Extremities: Right lower extremity re-perfusion edma edema. Right foot pink, warm to the touch with good capillary refill. Areas on distal aspects of toes with discoloration/demarcation Palpable dorsalis pedis pulse. Right groin with Prevena dressing intact. Patient able to move her toes foot and ankle. Neurological: No focal deficits. Strength and sensation are grossly intact. - Labs CBC & Chem 7: 01/09/21 09:12 01/09/21 09:12 Labs: Abnormal Lab Results - Last 24 Hours (Table) 01/08/21 01/08/21 01/08/21 Range/Units 11:48 16:31 19:45 Creatinine (0.52-1.04) mg/dL Glucose (74-99) mg/dL POC Glucose (mg/dL) 136 H 215 H 201 H (75-99) mg/dL 01/09/21 01/09/21 Range/Units 05:43 09:12 Creatinine 0.40 L (0.52-1.04) mg/dL Glucose 210 H (74-99) mg/dL POC Glucose (mg/dL) 146 H (75-99) mg/dL Assessment and Plan Assessment: 1. Postop day #5 for right femoral endarterectomy and patch angioplasty with superficial femoral artery balloon angioplasty and stenting as well as external iliac artery stenting 2. Diabetic ulcers of right lower extremity 3. [place] 5 peripheral arterial disease, right femoral artery occlusive disease 4. History of diabetes mellitus 5. Current every day smoker Plan: 1. Continue dual anti-platelet therapy 2. Continue Prevena dressing for 5 days and then remove and discard 3. Continue IV antibiotics per recommendations from infectious disease 4. Physical therapy on consult 5. Wound care clinic consulted, continue local wound care per their recommendations. 6. Post op shoe to right foot The patient is stable and cleared for discharge from a vascular surgical standpoint. She will need to follow-up with Dr. Byrne in one week. The impression and plan of care has been dictated as directed. Dr. Byrne I performed a history and examination of this patient, discussed the same with the dictator. I agree with the dictator's note ,documented as a scribe. Any additional findings or plans will be noted.
--- NOTE | 2021-01-09 14:36 | PN ---
PROGRESS NOTE DATE OF SERVICE: 01/09/2021 REASON FOR FOLLOWUP: Abdominal wall and right lower extremity wound and cellulitis. INTERVAL HISTORY: The patient is afebrile. The patient is breathing comfortably. Overall pain and discomfort has slightly decreased. No chest pain, shortness of breath or cough. No diarrhea. PHYSICAL EXAMINATION: Blood pressure 126/74 with a pulse of 87, temperature of 98.6. She is 94% on room air. General description is a middle-aged female up in the bed in no distress. Respiratory system: Unlabored breathing, clear to auscultation anteriorly. Heart S1, S2. Regular rate and rhythm. Abdomen: Soft. The abdominal wound is currently dressed. No drainage on the dressing. Right leg wound is dressed, no obvious drainage on the dressing. LABS: Hemoglobin is 13.1, white count 6.7. Creatinine 0.40. DIAGNOSTIC IMPRESSION AND PLAN: Patient with right lower extremity wound and abdominal wall wound and cellulitis in this patient who has shown overall clinical improvement on cefepime. Finish therapy with a course of oral Cipro and Keflex. Discussed with the nurse practitioner outpatient followup. MMODL / IJN: [id number] /
--- NOTE | 2021-01-09 15:18 | P.DS ---
Providers Date of admission: 12/31/20 09:06 Expected date of discharge: 01/09/21 Attending physician: Vitor Carvajal Consults: 12/29/20 20:49 Consult Physician Routine Consulting Provider: Ivett Sibley Consult Reason/Comments: diabetic foot ulcer Do you want consulting provider notified?: Yes 12/31/20 16:09 Consult Physician Routine Consulting Provider: Georgie Byrne Consult Reason/Comments: Occlusive thrombosis of the right femoral artery, with wounds to the right Do you want consulting provider notified?: Yes Primary care physician: Stated None Hospital Course: Final diagnosis Acute diabetic foot ulcer on the right side as well as abdominal wall ulcer with Pseudomonas and MSSA Peripheral arterial insufficiency and ischemic leg on the right, status post femoral thromboendarterectomy and patch angioplasty and right lower extremity, angiogram and popliteal artery Pseudo-hyponatremia Diabetes mellitus Swelling of the right leg History of stenosis and external iliac artery Hypertension History of nicotine dependence Full code Discharge disposition Patient is being discharged in a stable condition with guarded prognosis to [facility] for continued PT/OT therapy. Patient will follow-up with Dr. Winston in the outpatient setting upon discharge. Patient is to continue on oral keflex 500 mg 4 times daily for 7 days along with oral Cipro 500 mg twice daily for 7 days then may discontinue. Patient will need outpatient follow-up with vascular surgery Dr. Byrne along with infectious disease. Total time taken is greater than 35 minutes. Hospital course This is a 50-year-old female who was recently admitted with significant diabetic ulceration also peripheral vascular disease and recently underwent angioplasty with Dr. Byrne vascular surgery. Infectious disease also following and patient is maintained on IV antibiotics with possible transition to oral antibiotics on discharge. Patient continues to be weak requiring assistance and will await PT/OT evaluation. Patient states she would like to return home and does not want to go to rehab. Will await PT/OT evaluation. Patient denies any chest pain, shortness of breath, or palpitations. Patient is afebrile. No reports of nausea or vomiting noted and patient is tolerating diet. Will repeat a.m. labs and continue to monitor closely. 01/09/2021 Patient is seen and evaluated and follow-up this morning and has been cleared by vascular surgery along with infectious disease. Patient will need close outpatient follow-up with vascular surgery in 1-2 weeks along with the wound care center. Patient will continue on oral Keflex 500 mg 4 times daily along with oral Cipro 500 mg twice daily for the next 1 week and then may discontinue. Patient initially was adamant about going home and was evaluated by PT/OT therapy recommending subacute rehab and patient is now agreeable and will be going to [facility] on the [address] for physical therapy. Commended continue with Accu-Cheks before meals and at bedtime along with sliding scale and long-acting and continue with consistent carb heart healthy diet. Currently no reports of chest pain, shortness of breath, or palpitations. Patient is afebrile. No reports of nausea or vomiting and patient is tolerating diet. Patient will be going to [facility] on the [address] today. On exam vital signs are stable. Cardio S1, S2 are muffled. Respiratory system shows diminished breath sounds at the bases with no wheezing or rhonchi noted. Abdomen is soft and nontender. Nervous system shows diffuse weakness. Please refer to medication reconciliation sheet for a list of medications. Patient Condition at Discharge: Stable Plan - Discharge Summary New Discharge Prescriptions: New Aspirin 81 mg PO DAILY tab Ciprofloxacin HCl [Cipro] 500 mg PO BID 7 Days #14 tab Pregabalin [Lyrica] 100 mg PO BID #6 cap HYDROcodone/APAP 7.5-325MG [[place] 7.5-325] 1 each PO Q6HR PRN #12 tab PRN Reason: Pain INSULIN ASPART (NovoLOG) [NovoLOG (formulary)] 0 unit SQ ACHS ml Nicotine 14Mg/24Hr Patch [Habitrol] 1 patch TRANSDERM DAILY patch Cephalexin [Keflex] 500 mg PO Q6HR 7 Days #42 cap Insulin Detemir (Levemir) [Levemir] 10 unit SQ HS ml Famotidine [Pepcid] 20 mg PO BID tab Clopidogrel [Plavix] 75 mg PO DAILY tab Temazepam [Restoril] 15 mg PO HS PRN #3 cap PRN Reason: Insomnia lisinopriL [Zestril] 10 mg PO DAILY tab Discontinued Omeprazole 20 mg PO HS Discharge Medication List Aspirin 81 mg PO DAILY tab 01/09/21 [Rx] Cephalexin [Keflex] 500 mg PO Q6HR 7 Days #42 cap 01/09/21 [Rx] Ciprofloxacin HCl [Cipro] 500 mg PO BID 7 Days #14 tab 01/09/21 [Rx] Clopidogrel [Plavix] 75 mg PO DAILY tab 01/09/21 [Rx] Famotidine [Pepcid] 20 mg PO BID tab 01/09/21 [Rx] HYDROcodone/APAP 7.5-325MG [[place] 7.5-325] 1 each PO Q6HR PRN #12 tab 01/09/21 [Rx] INSULIN ASPART (NovoLOG) [NovoLOG (formulary)] 0 unit SQ ACHS ml 01/09/21 [Rx] Insulin Detemir (Levemir) [Levemir] 10 unit SQ HS ml 01/09/21 [Rx] Nicotine 14Mg/24Hr Patch [Habitrol] 1 patch TRANSDERM DAILY patch 01/09/21 [Rx] Pregabalin [Lyrica] 100 mg PO BID #6 cap 01/09/21 [Rx] Temazepam [Restoril] 15 mg PO HS PRN #3 cap 01/09/21 [Rx] lisinopriL [Zestril] 10 mg PO DAILY tab 01/09/21 [Rx] Follow up Appointment(s)/Referral(s): Georgie Byrne DO [STAFF PHYSICIAN] - 1 Week None,Stated [Primary Care Provider] - 1-2 days [facility] [NON-STAFF] - Ambulatory/Diagnostic Orders: Complete Blood Count w/diff [LAB.AMB] Time Frame: 2 Days, Location: None Selected Activity/Diet/Wound Care/Special Instructions: Patient is going to [facility] on the [address] activity as tolerated Continue with medications as prescribed Continue both antibiotics for 7 days Continue blood glucose monitoring with Accu-Cheks before meals and at bedtime Continue sliding scale and long-acting NovoLog sliding scale 0-150 equals 0 units 151-200 equals 2 units 201-250 equals 4 units 251-300 equals 6 units 301-350 equals 8 units 351-400 equals 10 units Please notify provider if blood sugar is 400 or above reCommend repeat CBC and BMP in 2-3 days Follow-up with primary care provider on discharge Follow-up with vascular surgery outpatient Follow-up at the wound center outpatient Discharge Disposition: TRANSFER TO SNF/ECF
[2021-01-09 15:45] VITALS: BP 122/77; PULSE 97; TEMP 98.5
== END 2021-01-09 17:02 | DRG 253 ==
LOC: EC 18:14 → 6NMEDSUR 20:48 → OBSVTOIN 12-31 09:06 → 3SCARD 01-04 17:51
PROVIDERS: ADMIT Hospitalist; ATTEND Hospitalist
PROC: B41D1ZZ Fluoroscopy of Aorta and Bilateral Lower Extremity Arteries using Low Osmolar Contrast (ICD-10-PCS; 2021-01-02 12:00)
PROC: B41F1ZZ Fluoroscopy of Right Lower Extremity Arteries using Low Osmolar Contrast (ICD-10-PCS; 2021-01-02 12:00)
PROC: 047K36Z Dilation of Right Femoral Artery with Three Drug-eluting Intraluminal Devices, Percutaneous Approach (ICD-10-PCS; principal; 2021-01-04 13:15)
PROC: 04UK0KZ Supplement Right Femoral Artery with Nonautologous Tissue Substitute, Open Approach (ICD-10-PCS; principal; 2021-01-04 13:15)
PROC: 04CK0ZZ Extirpation of Matter from Right Femoral Artery, Open Approach (ICD-10-PCS; principal; 2021-01-04 13:15)
PROC: 047H34Z Dilation of Right External Iliac Artery with Drug-eluting Intraluminal Device, Percutaneous Approach (ICD-10-PCS; principal; 2021-01-04 13:15)
DX: I74.3 Embolism and thrombosis of arteries of the lower extremities (principal); L03.115 Cellulitis of right lower limb; L03.311 Cellulitis of abdominal wall; L98.495 Non-pressure chronic ulcer of skin of other sites with muscle involvement without evidence of necrosis; L02.211 Cutaneous abscess of abdominal wall; L97.415 Non-pressure chronic ulcer of right heel and midfoot with muscle involvement without evidence of necrosis; E11.51 Type 2 diabetes mellitus with diabetic peripheral angiopathy without gangrene; E11.40 Type 2 diabetes mellitus with diabetic neuropathy, unspecified; B95.61 Methicillin susceptible Staphylococcus aureus infection as the cause of diseases classified elsewhere; B96.5 Pseudomonas (aeruginosa) (mallei) (pseudomallei) as the cause of diseases classified elsewhere; E11.622 Type 2 diabetes mellitus with other skin ulcer; E11.621 Type 2 diabetes mellitus with foot ulcer; E11.65 Type 2 diabetes mellitus with hyperglycemia; I70.235 Atherosclerosis of native arteries of right leg with ulceration of other part of foot; I70.232 Atherosclerosis of native arteries of right leg with ulceration of calf; I70.233 Atherosclerosis of native arteries of right leg with ulceration of ankle; Z20.822 Contact with and (suspected) exposure to COVID-19; I10 Essential (primary) hypertension; M54.9 Dorsalgia, unspecified; F17.210 Nicotine dependence, cigarettes, uncomplicated; Z71.6 Tobacco abuse counseling; Z79.899 Other long term (current) drug therapy; Z87.442 Personal history of urinary calculi; Z87.19 Personal history of other diseases of the digestive system; Z90.49 Acquired absence of other specified parts of digestive tract; Z87.39 Personal history of other diseases of the musculoskeletal system and connective tissue; Z87.448 Personal history of other diseases of urinary system; Z98.891 History of uterine scar from previous surgery; Z98.890 Other specified postprocedural states; Z88.6 Allergy status to analgesic agent; Z88.5 Allergy status to narcotic agent; Z88.8 Allergy status to other drugs, medicaments and biological substances
CPT/HCPCS: 36246; 36415; 37221; 37226; 75625; 75710; 75716; 76937; 80048; 80202; 83036; 85025; 86140; 86850; 86900; 86901; 87070; 87075; 87077; 87186; 87205; 87635; 88304; 88305; 88311; 94760; 99284

== ENCOUNTER 2021-03-15 21:37 | Inpatient (IN) | payer MEDICARE, OTHER ==
[2021-03-15] MEDS ORDERED: HYDROmorphone 1 MG/ML 1 ML SYRINGE IVP STA (22:37)
[2021-03-15] MEDS ORDERED: SODIUM CHLORIDE 0.9% 1,000 ML IV STA (22:37)
[2021-03-15] MEDS ORDERED: LABETALOL 5 MG/ML VIAL MDV IVP STA (22:39)
--- NOTE | 2021-03-15 22:39 | ED ---
Extremity Problem HPI - General Chief complaint: Extremity Problem,Nontraumatic Stated complaint: Leg pain Time Seen by Provider: 03/15/21 22:01 Source: patient, EMS, RN notes reviewed, old records reviewed Mode of arrival: EMS Limitations: no limitations - History of Present Illness Initial comments: This is a 50-year-old female to the emergency room today. Patient presents today for evaluation regards to severe right leg pain right leg swelling. P annia has history of the same and stents placed. Patient is no fever. Patient has no other new complaints maybe some chest pain occasional shortness of breath MD Complaint: extremity pain, extremity swelling -: days(s) Location: right, lower extremity History of Same: No -: Yes myalgia, Yes arthralgia Radiation: proximal, distal Severity scale (1-10): 10 Quality: constant Consistency: constant Improves with: movement Worsens with: nothing Associated Symptoms: chest pain, shortness of breath - Related Data Previous Rx's Medication Instructions Recorded Aspirin 81 mg PO DAILY tab 01/09/21 Cephalexin [Keflex] 500 mg PO Q6HR 7 Days #42 cap 01/09/21 Ciprofloxacin HCl [Cipro] 500 mg PO BID 7 Days #14 tab 01/09/21 Clopidogrel [Plavix] 75 mg PO DAILY tab 01/09/21 Famotidine [Pepcid] 20 mg PO BID tab 01/09/21 HYDROcodone/APAP 7.5-325MG [[place] 1 each PO Q6HR PRN #12 tab 01/09/21 7.5-325] INSULIN ASPART (NovoLOG) [NovoLOG 0 unit SQ ACHS ml 01/09/21 (formulary)] Insulin Detemir (Levemir) [Levemir] 10 unit SQ HS ml 01/09/21 Nicotine 14Mg/24Hr Patch [Habitrol] 1 patch TRANSDERM DAILY patch 01/09/21 Pregabalin [Lyrica] 100 mg PO BID #6 cap 01/09/21 Temazepam [Restoril] 15 mg PO HS PRN #3 cap 01/09/21 lisinopriL [Zestril] 10 mg PO DAILY tab 01/09/21 Allergies Allergy/AdvReac Type Severity Reaction Status Date / Time buprenorphine [From Suboxone] Allergy Swelling Verified 12/29/20 21:06 duloxetine [From Cymbalta] Allergy Confusion Verified 12/29/20 21:06 naloxone [From Suboxone] Allergy Swelling Verified 12/29/20 21:06 NSAIDS (Non-Steroidal Allergy Unknown Verified 12/29/20 21:06 Anti-Inflamma Childhood Review of Systems ROS Statement: Those systems with pertinent positive or pertinent negative responses have been documented in the HPI. ROS Other: All systems not noted in ROS Statement are negative. Past Medical History Past Medical History: Diabetes Mellitus Additional Past Medical History / Comment(s): bowel obstruction, kidney stones History of Any Multi-Drug Resistant Organisms: MRSA Past Surgical History: Back Surgery, Bladder Surgery, Section, Ch olecystectomy, Hernia Repair, Hysterectomy, Orthopedic Surgery Past Psychological History: No Psychological Hx Reported Smoking Status: Former smoker Past Alcohol Use History: Rare Past Drug Use History: None Reported General Exam Limitations: no limitations General appearance: alert, in no apparent distress Head exam: Present: atraumatic, normocephalic, normal inspection Eye exam: Present: normal appearance, PERRL, EOMI. Absent: scleral icterus, conjunctival injection, periorbital swelling ENT exam: Present: normal exam, mucous membranes moist Neck exam: Present: normal inspection. Absent: tenderness, meningismus, lymphadenopathy Respiratory exam: Present: normal lung sounds bilaterally. Absent: respiratory distress, wheezes, rales, rhonchi, stridor Cardiovascular Exam: Present: normal rhythm, tachycardia, normal heart sounds. Absent: systolic murmur, diastolic murmur, rubs, gallop, clicks GI/Abdominal exam: Present: soft, normal bowel sounds. Absent: distended, tenderness, guarding, rebound, rigid Extremities exam: Present: tenderness, normal capillary refill, calf tenderness, other (Severe right lower extremity pain). Absent: pedal edema, joint swelling Back exam: Present: normal inspection Neurological exam: Present: alert, oriented X3, CN II-XII intact Psychiatric exam: Present: normal affect, normal mood Skin exam: Present: warm, dry, intact, normal color. Absent: rash Course Vital Signs 03/15/21 03/15/21 03/16/21 21:39 23:34 01:59 Temperature 97.9 F Pulse Rate 109 H 89 90 Respiratory 19 19 18 Rate Blood Pressure 210/137 135/70 166/4 O2 Sat by Pulse 97 96 95 Oximetry - Reevaluation(s) Reevaluation #1: 03/16/21 02:10 Medical record is reviewed Reevaluation #2: 03/16/21 02:10 This pain and blood pressure significantly improved Reevaluation #3: 03/16/21 02:10 Patient informed results and questions are answered - Consultations Consultation #1: Spoke with PM were agreeable for admission Medical Decision Making - Medical Decision Making 50 female to the emergency department today. Patient presents today for evaluation regards to severe right lower extremity pain patient has had history of stent placement late secondary severe atherosclerosis. Patient is severe pain in that leg currently is negative for DVT. Patient be admitted for pain control and vascular surgery to evaluate - Lab Data Result diagrams: 03/15/21 23:25 03/15/21 23:25 Lab Results 03/15/21 03/15/21 03/15/21 Range/Units 23:25 23:25 23:25 WBC 7.2 (3.8-10.6) k/uL RBC 4.27 (3.80-5.40) m/uL Hgb 12.1 (11.4-16.0) gm/dL Hct 36.5 (34.0-46.0) % MCV 85.5 (80.0-100.0) fL MCH 28.4 (25.0-35.0) pg MCHC 33.2 (31.0-37.0) g/dL RDW 14.7 (11.5-15.5) % Plt Count 226 (150-450) k/uL MPV 8.5 Neutrophils % 55 % Lymphocytes % 34 % Monocytes % 5 % Eosinophils % 3 % Basophils % 1 % Neutrophils # 4.0 (1.3-7.7) k/uL Lymphocytes # 2.5 (1.0-4.8) k/uL Monocytes # 0.3 (0-1.0) k/uL Eosinophils # 0.2 (0-0.7) k/uL Basophils # 0.1 (0-0.2) k/uL PT 10.0 (9.0-12.0) sec INR 0.9 (<1.2) APTT 23.0 (22.0-30.0) sec D-Dimer 0.48 (<0.60) mg/L FEU Sodium 137 (137-145) mmol/L Potassium 4.0 (3.5-5.1) mmol/L Chloride 105 (98-107) mmol/L Carbon Dioxide 23 (22-30) mmol/L Anion Gap 9 mmol/L BUN 20 H (7-17) mg/dL Creatinine 0.52 (0.52-1.04) mg/dL Est GFR (CKD-EPI)AfAm >90 (>60 ml/min/1.73 sqM) Est GFR (CKD-EPI)NonAf >90 (>60 ml/min/1.73 sqM) Glucose 183 H (74-99) mg/dL Plasma Lactic Acid Niels (0.7-2.0) mmol/L Calcium 8.9 (8.4-10.2) mg/dL Phosphorus 3.5 (2.5-4.5) mg/dL Magnesium 1.6 (1.6-2.3) mg/dL Total Bilirubin 0.3 (0.2-1.3) mg/dL AST 26 (14-36) U/L ALT 31 (4-34) U/L Alkaline Phosphatase 110 (38-126) U/L Troponin I (0.000-0.034) ng/mL Total Protein 6.3 (6.3-8.2) g/dL Albumin 3.7 (3.5-5.0) g/dL 03/15/21 03/15/21 Range/Units 23:25 23:25 WBC (3.8-10.6) k/uL RBC (3.80-5.40) m/uL Hgb (11.4-16.0) gm/dL Hct (34.0-46.0) % MCV (80.0-100.0) fL MCH (25.0-35.0) pg MCHC (31.0-37.0) g/dL RDW (11.5-15.5) % Plt Count (150-450) k/uL MPV Neutrophils % % Lymphocytes % % Monocytes % % Eosinophils % % Basophils % % Neutrophils # (1.3-7.7) k/uL Lymphocytes # (1.0-4.8) k/uL Monocytes # (0-1.0) k/uL Eosinophils # (0-0.7) k/uL Basophils # (0-0.2) k/uL PT (9.0-12.0) sec INR (<1.2) APTT (22.0-30.0) sec D-Dimer (<0.60) mg/L FEU Sodium (137-145) mmol/L Potassium (3.5-5.1) mmol/L Chloride (98-107) mmol/L Carbon Dioxide (22-30) mmol/L Anion Gap mmol/L BUN (7-17) mg/dL Creatinine (0.52-1.04) mg/dL Est GFR (CKD-EPI)AfAm (>60 ml/min/1.73 sqM) Est GFR (CKD-EPI)NonAf (>60 ml/min/1.73 sqM) Glucose (74-99) mg/dL Plasma Lactic Acid Niels 1.4 (0.7-2.0) mmol/L Calcium (8.4-10.2) mg/dL Phosphorus (2.5-4.5) mg/dL Magnesium (1.6-2.3) mg/dL Total Bilirubin (0.2-1.3) mg/dL AST (14-36) U/L ALT (4-34) U/L Alkaline Phosphatase (38-126) U/L Troponin I 0.018 (0.000-0.034) ng/mL Total Protein (6.3-8.2) g/dL Albumin (3.5-5.0) g/dL - Radiology Data Radiology results: report reviewed (Ultrasound right lower extremity negative for DVT), image reviewed Disposition Clinical Impression: Atherosclerosis of [place] arteries of right leg with ulceration of calf, Atherosclerosis of [place] arteries of right leg with ulceration of ankle, Diabetic foot ulcer, Cellulitis, Leg edema, right Disposition: ADMITTED IP TO THIS HOSP Condition: Serious Is patient prescribed a controlled substance at d/c from ED?: No
[2021-03-15 23:38] LABS: Basophils # (A) 0.1 k/uL (0-0.2); Basophils % (A) 1 %; Eosinophils # (A) 0.2 k/uL (0-0.7); Eosinophils % (A) 3 %; HCT 36.5 % (34.0-46.0); HGB 12.1 gm/dL (11.4-16.0); Lymphocytes # (A) 2.5 k/uL (1.0-4.8); Lymphocytes % (A) 34 %; MCH 28.4 pg (25.0-35.0); MCHC 33.2 g/dL (31.0-37.0); MCV 85.5 fL (80.0-100.0); Mean Platelet Volume 8.5; Monocytes # (A) 0.3 k/uL (0-1.0); Monocytes % (A) 5 %; Neutrophils % (A) 55 %; Platelet Count 226 k/uL (150-450); RBC 4.27 m/uL (3.80-5.40); RDW 14.7 % (11.5-15.5); WBC 7.2 k/uL (3.8-10.6)
[2021-03-15 23:52] LABS: INR 0.9 (<1.2)
[2021-03-15 23:54] LABS: ALT 31 U/L (4-34); AST 26 U/L (14-36); African American GFR (CKD) >90 (>60 ml/min/1.73 sqM); Albumin 3.7 g/dL (3.5-5.0); Alkaline Phosphatase 110 U/L (38-126); Anion Gap 9 mmol/L; Blood Urea Nitrogen 20 mg/dL (7-17); Calcium 8.9 mg/dL (8.4-10.2); Carbon Dioxide 23 mmol/L (22-30); Chloride 105 mmol/L (98-107); Glucose 183 mg/dL (74-99); Magnesium 1.6 mg/dL (1.6-2.3); Non-African American GFR(CKD) >90 (>60 ml/min/1.73 sqM); Phosphorus 3.5 mg/dL (2.5-4.5); Sodium 137 mmol/L (137-145); Total Bilirubin 0.3 mg/dL (0.2-1.3); Total Protein 6.3 g/dL (6.3-8.2)
--- NOTE | 2021-03-16 00:16 | US ---
EXAMINATION TYPE: US venous doppler duplex LE RT DATE OF EXAM: 03/16/2021 12:00 AM COMPARISON: NONE CLINICAL HISTORY: pain. SIDE PERFORMED: Right TECHNIQUE: The lower extremity deep venous system is examined utilizing real time linear array sonog [place] with graded compression, doppler sonography and color-flow sonography. VESSELS IMAGED: Common Femoral Vein Deep Femoral Vein Greater Saphenous Vein * Femoral Vein Popliteal Vein Small Saphenous Vein * Proximal Calf Veins (* superficial vessels) Right Leg: Appears negative for DVT. Patient unable to tolerate compressions at femoral vein due to pain. IMPRESSION: No evidence of deep vein thrombosis in the right leg.
[2021-03-16] MEDS ORDERED: NALOXONE 0.4 MG/ML 1 ML VIAL IV PRN (01:18)
[2021-03-16] MEDS ORDERED: ONDANSETRON 4 MG/2 ML VIAL IVP PRN (01:18)
[2021-03-16] MEDS ORDERED: HYDROmorphone 1 MG/ML 1 ML SYRINGE IVP STA (01:21)
[2021-03-16] MEDS: SODIUM CHLORIDE 0.9% 1,000 ML IV SCH ×3 (01:56→15:45)
[2021-03-16] MEDS: HYDROcodone/APAP 7.5-325MG 1 EACH TAB PO PRN ×3 (04:55→22:31)
[2021-03-16] MEDS: HYDROmorphone 1 MG/ML 1 ML SYRINGE IVP PRN ×6 (06:12→23:48)
[2021-03-16 07:12] LABS: Glucose,Whole Blood 187 mg/dL (75-99)
[2021-03-16] MEDS ORDERED: FLUTICASONE 50MCG/SPRAY NASAL 16GM EA NOSTRIL PRN (10:59)
[2021-03-16] MEDS: CLOPIDOGREL 75 MG TAB PO SCH (11:18)
[2021-03-16] MEDS: ASPIRIN 81 MG PO SCH (11:18)
[2021-03-16] MEDS: ATORVASTATIN 40 MG TAB PO SCH (12:39)
[2021-03-16 12:42] LABS: Glucose,Whole Blood 188 mg/dL (75-99)
--- NOTE | 2021-03-16 13:08 | P.CRDCN ---
History of Present Illness Consult date: 03/16/21 Requesting physician: Vitor Carvajal Reason for Consult (text): elevated troponin Chief complaint: right leg pain and edema History of present illness: History 50-year-old female patient with a history of hypertension, diabetes, PAD with recent right femoral endarterectomy and patch angioplasty with right SFA balloon angioplasty and stenting as well as external iliac artery stenting and family history of premature CAD with a brother passing away of an [place] at the age of 36. She also has a history of nicotine dependence, quit smoking about one month ago. Presented to the emergency department with complaints of right lower extremity edema and pain. She has concerns that there may be an infection at the site of the stent and she's had issues in the past with a hernia mesh and she is afraid that her body is having the same reaction to the stent. We are asked to see the patient in consultation due to an elevation in the troponins. Troponins were drawn on admission and came back at 0.018, 0.049 and 0.032. She's had cardiac workup in the past but in several years. She denies any com plaints of chest discomfort. She's had no shortness of breath. She said no palpitations, she has lower extremity edema on the right side but no orthopnea or PND. Right Lower extremity venous duplex showed no evidence of DVT. Past Medical History Past Medical History: Diabetes Mellitus Additional Past Medical History / Comment(s): bowel obstruction, kidney stones History of Any Multi-Drug Resistant Organisms: MRSA Date of last positivie culture/infection: 2012 MDRO Source:: stomach mesh Past Surgical History: Back Surgery, Bladder Surgery, Section, Cholecystectomy, Hernia Repair, Hysterectomy, Orthopedic Surgery Past Anesthesia/Blood Transfusion Reactions: No Reported Reaction Past Psychological History: No Psychological Hx Reported Smoking Status: Former smoker Past Alcohol Use History: Rare Past Drug Use History: None Reported Medications and Allergies Home Medications Medication Instructions Recorded Confirmed Type Aspirin 81 mg PO DAILY tab 01/09/21 03/16/21 Rx Clopidogrel [Plavix] 75 mg PO DAILY tab 01/09/21 03/16/21 Rx Nicotine 14Mg/24Hr Patch [Habitrol] 1 patch TRANSDERM DAILY patch 01/09/21 03/16/21 Rx Pregabalin [Lyrica] 100 mg PO BID #6 cap 01/09/21 03/16/21 Rx Temazepam [Restoril] 15 mg PO HS PRN #3 cap 01/09/21 03/16/21 Rx lisinopriL [Zestril] 10 mg PO DAILY tab 01/09/21 03/16/21 Rx Cholecalciferol [Vitamin D3 (25 25 mcg PO DAILY 03/16/21 03/16/21 History Mcg = 1000 Iu)] Fluticasone Nasal [place] [Flonase 1 spray EA NOSTRIL DAILY PRN 03/16/21 03/16/21 History Nasal [place]] Insulin Glargine,Hum.rec.anlog See Protocol SQ HS 03/16/21 03/16/21 History [Semglee Pen] Insulin Lispro [humaLOG Kwikpen] See Protocol SQ AC-TID 03/16/21 03/16/21 History Multivitamins, Thera [Multivitamin 1 tab PO DAILY 03/16/21 03/16/21 History (formulary)] Omeprazole 20 mg PO HS 03/16/21 03/16/21 History Allergies Allergy/AdvReac Type Severity Reaction Status Date / Time buprenorphine [From Suboxone] Allergy Swelling Verified 03/16/21 09:55 duloxetine [From Cymbalta] Allergy Confusion Verified 03/16/21 09:55 naloxone [From Suboxone] Allergy Swelling Verified 03/16/21 09:55 NSAIDS (Non-Steroidal Allergy Unknown Verified 03/16/21 09:55 Anti-Inflamma Childhood Physical Exam Vitals: Vital Signs Temp Pulse Pulse Resp BP BP Pulse Ox 03/16/21 08:15 16 03/16/21 08:00 96.8 F L 78 16 135/76 96 03/16/21 03:15 142/70 03/16/21 03:05 97.9 F 92 15 191/103 97 03/16/21 01:59 90 18 166/4 95 03/15/21 23:34 89 19 135/70 96 03/15/21 21:39 97.9 F 109 H 19 210/137 97 Intake and Output 03/15/21 03/16/21 03/16/21 22:59 06:59 14:59 Intake Total 300 Balance 300 Intake: Oral 300 Other: Voiding Method Bedside Commode # Voids 1 Weight 92.986 kg 92.986 kg PHYSICAL EXAMINATION: This is a 50-year-old female who is tearful at the time of my examination. VITAL SIGNS: Blood pressure 135/76, heart rate 78, respirations 16, temp 96.8F tympanic. Patient is 96 % on room air. HEENT: Head is atraumatic, normocephalic. Pupils are equal, round. Sclerae anicteric. Conjunctivae are clear. Mucous membranes of the mouth are moist. Neck is supple. There is no elevated jugular venous pressure. No carotid bruit is heard. CHEST EXAMINATION: Clear to auscultation bilaterally. No wheezes rales or rhonchi. Respirations even and nonlabored. HEART EXAMINATION: Heart regular, positive S1 and S2. No S3. No S4. No clicks, rubs or murmurs. ABDOMEN: Soft, nontender. Bowel sounds are heard. No organomegaly noted. EXTREMITIES: 2+ right pedal pulse and 1+ left pedal pulse with evidence of mild right lower extremity edema. Dressing noted to right ankle at the site of healing wound for which she is following with wound care. NEUROLOGIC EXAMINATION: Patient is awake, alert and oriented x3. Results 03/15/21 23:25 03/15/21 23:25 Cardiac Enzymes 03/15/21 03/15/21 03/16/21 Range/Units 23:25 23:25 02:42 AST 26 (14-36) U/L Troponin I 0.018 0.049 H* (0.000-0.034) ng/mL 03/16/21 Range/Units 05:44 AST (14-36) U/L Troponin I 0.032 (0.000-0.034) ng/mL Coagulation 03/15/21 Range/Units 23:25 PT 10.0 (9.0-12.0) sec APTT 23.0 (22.0-30.0) sec CBC 03/15/21 Range/Units 23:25 WBC 7.2 (3.8-10.6) k/uL RBC 4.27 (3.80-5.40) m/uL Hgb 12.1 (11.4-16.0) gm/dL Hct 36.5 (34.0-46.0) % Plt Count 226 (150-450) k/uL Comprehensive Metabolic Panel 03/15/21 Range/Units 23:25 Sodium 137 (137-145) mmol/L Potassium 4.0 (3.5-5.1) mmol/L Chloride 105 (98-107) mmol/L Carbon Dioxide 23 (22-30) mmol/L BUN 20 H (7-17) mg/dL Creatinine 0.52 (0.52-1.04) mg/dL Glucose 183 H (74-99) mg/dL Calcium 8.9 (8.4-10.2) mg/dL AST 26 (14-36) U/L ALT 31 (4-34) U/L Alkaline Phosphatase 110 (38-126) U/L Total Protein 6.3 (6.3-8.2) g/dL Albumin 3.7 (3.5-5.0) g/dL Current Medications Generic Name Dose Route Start Last Admin Trade Name Freq PRN Reason Stop Dose Admin Hydrocodone Bitart/Acetaminophen 1 each 03/16/21 04:46 03/16/21 04:55 Hydrocodone/Apap 7.5-325mg 1 Each Tab PO 1 each Q6HR PRN Administration Pain Aspirin 81 mg 03/16/21 11:30 03/16/21 11:18 Aspirin 81 Mg PO 81 mg DAILY SADIQ Administration Atorvastatin Calcium 40 mg 03/16/21 12:30 03/16/21 12:39 Atorvastatin 40 Mg Tab PO 40 mg DAILY SADIQ Administration Cholecalciferol 25 mcg 03/17/21 09:00 Cholecalciferol 25 Mcg (1000 Iu) Tablet PO DAILY SADIQ Clopidogrel Bisulfate 75 mg 03/16/21 11:30 03/16/21 11:18 Clopidogrel 75 Mg Tab PO 75 mg DAILY SADIQ Administration Fluticasone Propionate 1 spray 03/16/21 10:59 Fluticasone 50mcg/[place] Nasal 16gm EA NOSTRIL DAILY PRN Congestion Hydromorphone HCl 1 mg 03/16/21 11:31 Hydromorphone 1 Mg/Ml 1 Ml Syringe IVP Q3HR PRN Pain Sodium Chloride 1,000 mls @ 20 mls/hr 03/15/21 22:37 03/15/21 23:34 Saline 0.9% IV 03/16/21 22:36 20 mls/hr .Q24H STA Administration Sodium Chloride 1,000 mls @ 130 mls/hr 03/16/21 01:30 03/16/21 08:27 Saline 0.9% IV 130 mls/hr .Q7H42M SADIQ Administration Lisinopril 10 mg 03/16/21 21:00 Lisinopril 10 Mg Tab PO BID SADIQ Naloxone HCl 0.2 mg 03/16/21 01:18 Naloxone 0.4 Mg/Ml 1 Ml Vial IV Q2M PRN Opioid Reversal Nicotine 1 patch 03/17/21 09:00 Nicotine 14mg/24hr Patch TRANSDERM DAILY SADIQ Ondansetron HCl 4 mg 03/16/21 01:18 Ondansetron 4 Mg/2 Ml Vial IVP Q8HR PRN Nausea And Vomiting Pregabalin 100 mg 03/16/21 21:00 Pregabalin 100 Mg Cap PO BID SADIQ Temazepam 15 mg 03/16/21 10:59 Temazepam 15 Mg Cap PO HS PRN Insomnia Intake and Output 03/15/21 03/16/21 03/16/21 22:59 06:59 14:59 Intake Total 300 Balance 300 Intake: Oral 300 Other: Voiding Method Bedside Commode # Voids 1 Weight 92.986 kg 92.986 kg 03/15/21 23:25 03/15/21 23:25 Assessment and Plan Assessment: #1 minimal troponin elevation, not consistent with acute coronary event, no complaints of chest discomfort #2 PAD currently with complaints of right lower extremity pain and edema #3 diabetes mellitus #4 hypertension #5 family history of premature CAD #6 prior nicotine dependence Plan: From cardiology's perspective troponin elevation consistent with acute coronary event. We will obtain an EKG and it 2-D echo with Doppler study to assess cardiac structure and function. We will add statin and increase AYLA inhibitor. Further recommendations to follow depending on results of the EKG and the echocardiogram. Likely patient will have further cardiac workup as an outpatient. ELECTRO OPTICAL ENGINEER note has been reviewed, I agree with a documented findings and plan of care. Patient was seen and examined.
--- NOTE | 2021-03-16 14:10 | ECHOF ---
Referral Reason:elevated troponin MEASUREMENTS -------- HEIGHT: 165.1 cm WEIGHT: 93.0 kg BP: RVIDd: 3.3 cm (< 3.3) IVSd: 1.2 cm (0.6 - 1.1) LVIDd: 4.3 cm (3.9 - 5.3) LVPWd: 1.3 cm (0.6 - 1.1) IVSs: 1.4 cm LVIDs: 3.8 cm LVPWs: 1.4 cm LAESV Index (A-L): 38.39 ml/m Ao Diam: 3.0 cm (2.0 - 3.7) MV EXCURSION: 21.866 mm (> 18.000) MV EF SLOPE: 77 mm/s (70 - 150) EPSS: 0.5 cm MV E Remigio: 0.85 m/s MV DecT: 155 ms MV A Remigio: 0.89 m/s MV E/A Ratio: 0.96 FINDINGS -------- Sinus rhythm. This was a technically adequate study. The left ventricular size is normal. There is mild concentric left ventricular hypertrophy. Overa ll left ventricular systolic function is normal with, an EF between 55 - 60 %. The right ventricle is normal in size. LA is moderately dilated 34-39 ml/m2 The right atrial size is normal. The aortic valve is trileaflet, and appears structurally normal. No aortic stenosis or regurgitation. The mitral valve leaflets are mildly thickened. Mild mitral regurgitation is present. The tricuspid valve appears structurally normal. Mild tricuspid regurgitation present. Right vent ricular systolic pressure is normal at < 35 mmHg. The pulmonic valve was not well visualized. The aortic root size is normal. There is no pericardial effusion. CONCLUSIONS -------- 1. There is mild concentric left ventricular hypertrophy. 2. Overall left ventricular systolic function is normal with, an EF between 55 - 60 %. 3. LA is moderately dilated 34-39 ml/m2 4. Mild mitral regurgitation is present. 5. Mild tricuspid regurgitation present. CNA HHA: Katherine Cortez RDCS
--- NOTE | 2021-03-16 16:03 | P.HPIM ---
History of Present Illness This is a pleasant 50 years old female with past medical history of diabetes mellitus. Patient presents because of right leg pain and swelling. Patient states that on 01/04/2021 patient had the stent placed in the right leg by Dr. Byrne, 15 she's been using a cane Rosalind patient noticed that her right leg strap to swollen, and was told about it by her boyfriend as well. And next day starts hurting with pain in the inner thigh radiating to the groin and radiating to the back and give her some back spasm, she states that her pain in her leg is severe tenderness/10 and the Dilaudid 1 mg barely take the age of 7 down to 8/10. It feels like tight and hot. Also she feels pain in her toes recommended to the ankle feel like co ntracting pain. She has a small wound on the lateral side of the ankle about 1 inch with no obvious surrounding cellulitis but there is mild purulent discharge and the dressing is in place. Other than that she denies any chest pain or dyspnea or coughing. No headache or weakness or dizziness or numbness. No abdominal pain or vomiting or diarrhea. No urinary complaints. She used to smoke and quit about one month ago. Call or illicit tracts. Vital otherwise she is hemodynamically stable. WBC is normal. INR 0.9, d-dimer -0.48. Glucose 187 and 188. Troponin is elevated 1 time, it was normal 0.01 and then elevated 0.04 before it was back to normal at 0.03. BMP, liver enzymes are unremarkable. Magnesium 1.6. Lactic acid is normal at 1.4. Venous Doppler is negative for DVT in both legs. Echocardiogram showed ejection fraction of 55% 6%. In the emergency room patient was started on Dilaudid and normal saline at 130 milliliters per hour [facility] and vascular surgery were consulted, as per staff both surfaces are aware of the consult Review of Systems CONSTITUTIONAL: No fever, no malaise, no fatigue. HEENT: No recent visual problems or hearing problems. Denied any sore throat. CARDIOVASCULAR: No orthopnea, PND, no palpitations, no syncope. PULMONARY: No shortness of breath, no cough, no hemoptysis. GASTROINTESTINAL: No diarrhea, no nausea, no vomiting, no abdominal pain. Normoactive bowel sounds. NEUROLOGICAL: No headaches, no weakness, no numbness. HEMATOLOGICAL: Denies any bleeding or petechiae. GENITOURINARY: Denies any burning micturition, frequency, or urgency. -MUSCULOSKELETAL/RHEUMATOLOGICAL: Denies any joint pain, swelling, or any muscle pain. (Except what is mentioned above) ENDOCRINE: Denies any polyuria or polydipsia. ROS unobtainable: due to endotracheal tube Past Medical History Past Medical History: Diabetes Mellitus Additional Past Medical History / Comment(s): bowel obstruction, kidney stones History of Any Multi-Drug Resistant Organisms: MRSA Date of last positivie culture/infection: 2012 MDRO Source:: stomach mesh Past Surgical History: Back Surgery, Bladder Surgery, Section, Cholecystectomy, Hernia Repair, Hysterectomy, Orthopedic Surgery Past Anesthesia/Blood Transfusion Reactions: No Reported Reaction Past Psychological History: No Psychological Hx Reported Smoking Status: Former smoker Past Alcohol Use History: Rare Past Drug Use History: None Reported Medications and Allergies Home Medications Medication Instructions Recorded Confirmed Type RX: Aspirin 81 mg PO DAILY tab 01/09/21 03/16/21 Rx RX: Clopidogrel [Plavix] 75 mg PO DAILY tab 01/09/21 03/16/21 Rx RX: Nicotine 14Mg/24Hr Patch 1 patch TRANSDERM DAILY patch 01/09/21 03/16/21 Rx [Habitrol] RX: Pregabalin [Lyrica] 100 mg PO BID #6 cap 01/09/21 03/16/21 Rx RX: Temazepam [Restoril] 15 mg PO HS PRN #3 cap 01/09/21 03/16/21 Rx RX: lisinopriL [Zestril] 10 mg PO DAILY tab 01/09/21 03/16/21 Rx Cholecalciferol [Vitamin D3 (25 25 mcg PO DAILY 03/16/21 03/16/21 History Mcg = 1000 Iu)] Fluticasone Nasal [place] [Flonase 1 spray EA NOSTRIL DAILY PRN 03/16/21 03/16/21 History Nasal [place]] Insulin Glargine,Hum.rec.anlog See Protocol SQ HS 03/16/21 03/16/21 History [Semglee Pen] Insulin Lispro [humaLOG Kwikpen] See Protocol SQ AC-TID 03/16/21 03/16/21 History Multivitamins, Thera [Multivitamin 1 tab PO DAILY 03/16/21 03/16/21 History (formulary)] RX: Omeprazole 20 mg PO HS 03/16/21 03/16/21 History Allergies Allergy/AdvReac Type Severity Reaction Status Date / Time buprenorphine [From Suboxone] Allergy Swelling Verified 03/16/21 09:55 duloxetine [From Cymbalta] Allergy Confusion Verified 03/16/21 09:55 naloxone [From Suboxone] Allergy Swelling Verified 03/16/21 09:55 NSAIDS (Non-Steroidal Allergy Unknown Verified 03/16/21 09:55 Anti-Inflamma Childhood Physical Exam Vitals: Vital Signs Temp Pulse Pulse Resp BP BP Pulse Ox 03/16/21 08:15 16 03/16/21 08:00 96.8 F L 78 16 135/76 96 03/16/21 03:15 142/70 03/16/21 03:05 97.9 F 92 15 191/103 97 03/16/21 01:59 90 18 166/4 95 03/15/21 23:34 89 19 135/70 96 03/15/21 21:39 97.9 F 109 H 19 210/137 97 Intake and Output 03/16/21 03/16/21 03/16/21 06:59 14:59 22:59 Intake Total 300 Balance 300 Intake: Oral 300 Other: Voiding Method Bedside Commode # Voids 1 Weight 92.986 kg GENERAL: The patient is alert and oriented x3, not in any acute distress. Well developed, well nourished. HEENT: Pupils are round and equally reacting to light. EOMI. No scleral icterus. No conjunctival pallor. Normocephalic, atraumatic. No pharyngeal erythema. No thyromegaly. CARDIOVASCULAR: S1 and S2 present. No murmurs, rubs, or gallops. PULMONARY: Chest is clear to auscultation, no wheezing or crackles. ABDOMEN: Soft, nontender, nondistended, normoactive bowel sounds. No palpable organomegaly. MUSCULOSKELETAL: No joint swelling or deformity. -EXTREMITIES: No cyanosis, clubbing, or pedal edema. Right leg is more swollen and painful for the patient, decreased movement in the toes of the right side compared to the left side, no discoloration, no bulge or redness or blisters. Peripheral arteries could not be felt on both sides. Also patient has a small wound about 1 inch in diameter on the lateral side of the ankle with no significant surrounding cellulitis. Examination and movement is limited by pain and tenderness NEUROLOGICAL: Gross neurological examination did not reveal any focal deficits. SKIN: No rashes. No petechiae Results CBC & Chem 7: 03/15/21 23:25 03/15/21 23:25 Labs: Abnormal Lab Results - Last 24 Hours (Table) 03/15/21 03/16/21 03/16/21 Range/Units 23:25 02:42 07:10 BUN 20 H (7-17) mg/dL Glucose 183 H (74-99) mg/dL POC Glucose (mg/dL) 187 H (75-99) mg/dL Troponin I 0.049 H* (0.000-0.034) ng/mL 03/16/21 Range/Units 12:41 BUN (7-17) mg/dL Glucose (74-99) mg/dL POC Glucose (mg/dL) 188 H (75-99) mg/dL Troponin I (0.000-0.034) ng/mL Thrombosis Risk Factor Assmnt - Choose All That Apply Any of the Below Risk Factors Present?: Yes Each Factor Represents 1 point: Age 41-60 years, Swollen legs (current) Other Risk Factors: No Other congenital or acquired thrombophilia - If yes, enter type in comment: No Thrombosis Risk Factor Assessment Total Risk Factor Score: 2 Thrombosis Risk Factor Assessment Level: Low Risk Assessment and Plan Assessment: Right leg pain and swelling, rule out vascular versus neurological causes. Month the elevated troponin, rule out cardiac causes right lateral ankle wound, with no obvious surrounding cellulitis Diabetes mellitus Previous nicotine dependence total one month ago Obesity with BMI of 53.1 Plan: this is a pleasant 50 years old female who presents with right leg pain and swelling. Continue with pain management continue with aspirin and Plavix , we are going to add heparin subcutaneously Vascular surgery already consulted, we will follow up with the recommendation Consult neurology service Currently press clipper on the case for possible troponin elevation Labs and medication were reviewed.. Continue same treatment. Continue with symptomatic treatment. Resume home medication. Monitor lytes and vitals. DVT and GI prophylaxis. Further recommendations depends on the clinical course of the patient DVT prophylaxis: Subcutaneous heparin GI Prophylaxis: Pepcid PT/OT: Pending, deferred Prognosis is guarded
[2021-03-16 16:47] LABS: Glucose,Whole Blood 175 mg/dL (75-99)
[2021-03-16] MEDS: INSULIN ASPART (NovoLOG) 100 UNIT/ML VIAL SQ SCH ×2 (16:49→20:57)
[2021-03-16] MEDS: HEPARIN SODIUM,PORCINE/PF 5,000 UNIT/0.5 ML SYRINGE SQ SCH ×2 (16:49→23:46)
--- NOTE | 2021-03-16 20:26 | CT ---
EXAMINATION TYPE: CT lumbar spine wo con DATE OF EXAM: 03/16/2021 COMPARISON: CT abdomen pelvis 11/18/2018 HISTORY: Low back pain. CT DLP: 1642.6 mGycm Automated exposure control for dose reduction was used. Images obtained from the level of T11-S3 vertebra without contrast. The lumbar vertebra have normal alignment. There is narrowing of L4-5 disc space. There is vacuum dis c at L3-4 L4-5 and L5-S1. There is no compression fracture. There is osteosclerosis on both sides of the L4-5 disc. I see no focal bone destruction. There is no evidence of lumbar paraspinal mass. There is some pleural reaction and atelectasis at the lung bases. I see no focal bone destruction. Sacroil iac joints are intact. There is developmentally adequate spinal canal. There is posterior mild disc herniation at L4-5 and L 5-S1. IMPRESSION: Spondylotic changes in the lower lumbar spine. No compression fracture. There is some osteopenia. Lum bar spine overall not significantly different than old exam. Posterior disc herniations at L4-5 and L 5-S1 but no significant spinal stenosis.
[2021-03-16 20:53] LABS: Glucose,Whole Blood 131 mg/dL (75-99)
[2021-03-16] MEDS: PREGABALIN 100 MG CAP PO SCH (20:57)
[2021-03-16] MEDS: lisinopriL 10 MG TAB PO SCH (20:57)
[2021-03-17] MEDS: HYDROmorphone 1 MG/ML 1 ML SYRINGE IVP PRN ×6 (04:04→22:48)
[2021-03-17 06:24] LABS: African American GFR (CKD) >90 (>60 ml/min/1.73 sqM); Anion Gap 5 mmol/L; Blood Urea Nitrogen 14 mg/dL (7-17); Calcium 8.9 mg/dL (8.4-10.2); Carbon Dioxide 26 mmol/L (22-30); Chloride 103 mmol/L (98-107); Glucose 183 mg/dL (74-99); Non-African American GFR(CKD) >90 (>60 ml/min/1.73 sqM); Potassium 3.8 mmol/L (3.5-5.1); Sodium 134 mmol/L (137-145)
[2021-03-17 07:14] LABS: Glucose,Whole Blood 178 mg/dL (75-99)
[2021-03-17] MEDS: INSULIN ASPART (NovoLOG) 100 UNIT/ML VIAL SQ SCH ×4 (07:20→22:48)
[2021-03-17] MEDS: NICOTINE 14MG/24HR PATCH TRANSDERM SCH (07:21)
[2021-03-17] MEDS: ASPIRIN 81 MG PO SCH (07:21)
[2021-03-17] MEDS: ATORVASTATIN 40 MG TAB PO SCH (07:21)
[2021-03-17] MEDS: HEPARIN SODIUM,PORCINE/PF 5,000 UNIT/0.5 ML SYRINGE SQ SCH ×3 (07:21→22:48)
[2021-03-17] MEDS: lisinopriL 10 MG TAB PO SCH ×2 (07:21→19:30)
[2021-03-17] MEDS: CLOPIDOGREL 75 MG TAB PO SCH (07:21)
[2021-03-17] MEDS: PREGABALIN 100 MG CAP PO SCH ×2 (07:21→19:30)
[2021-03-17] MEDS: CHOLECALCIFEROL 25 MCG (1000 IU) TABLET PO SCH (07:22)
[2021-03-17] MEDS: SODIUM CHLORIDE 0.9% 1,000 ML IV SCH ×2 (07:36→22:54)
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
[2021-03-17] MEDS ORDERED: lisinopriL 10 MG TAB PO SCH (09:00)
[2021-03-17] MEDS: HYDROcodone/APAP 7.5-325MG 1 EACH TAB PO PRN ×2 (09:30→17:53)
[2021-03-17 11:26] LABS: Glucose,Whole Blood 158 mg/dL (75-99)
--- NOTE | 2021-03-17 12:59 | P.GSCN ---
History of Present Illness Consult date: 03/17/21 Reason for Consult: #1: Right leg discomfort. #2: History of right lower extremity revascularization. Requesting physician: Shivam E Sheet History of present illness: Patient is a 50-year-old female who for the past week to 10 days has been experiencing radicular type pain extending from her low back on the right down posteriorly along the thigh and calf areas. Patient indicates that this began abruptly when she was walking from her kitchen to her restroom. The patient has a history of undergoing a right common femoral thromboendarterectomy and patch angioplasty as well as right iliac and femoral balloon dilation approximate 2 months ago. Patient also has a very significant history of lumbar disc disease dating back approximately 15 years for this back issue she has undergone nerve ablation as well as steroid injection therapy. She was seen by orthopedic or possibly neurosurgery and was recommended she have lumbar surgery which she has refused. The pain she is complaining of is very similar in nature to what she experienced when she was being treated for her back issues. There is no history to suggest ischemic rest pain. The patient did have an arterial Doppler study performed in the outpatient setting and was scheduled to see Dr. Byrne on March 20 in follow-up surveillance. Past Medical History Past Medical History: Diabetes Mellitus Additional Past Medical History / Comment(s): bowel obstruction, kidney stones History of Any Multi-Drug Resistant Organisms: MRSA Year Discovered:: 2012 MDRO Source:: stomach mesh Past Surgical History: Back Surgery, Bladder Surgery, Section, Cholecystectomy, Hernia Repair, Hysterectomy, Orthopedic Surgery Additional Past Surgical History / Comment(s): Ablation of lumbar nerve Past Anesthesia/Blood Transfusion Reactions: No Reported Reaction Past Psychological History: No Psychological Hx Reported Smoking Status: Former smoker Past Alcohol Use History: Rare Past Drug Use History: None Reported Medications and Allergies Home Medications Medication Instructions Recorded Confirmed Type Aspirin 81 mg PO DAILY tab 01/09/21 03/16/21 Rx Clopidogrel [Plavix] 75 mg PO DAILY tab 01/09/21 03/16/21 Rx Nicotine 14Mg/24Hr Patch [Habitrol] 1 patch TRANSDERM DAILY patch 01/09/21 03/16/21 Rx Pregabalin [Lyrica] 100 mg PO BID #6 cap 01/09/21 03/16/21 Rx Temazepam [Restoril] 15 mg PO HS PRN #3 cap 01/09/21 03/16/21 Rx lisinopriL [Zestril] 10 mg PO DAILY tab 01/09/21 03/16/21 Rx Cholecalciferol [Vitamin D3 (25 25 mcg PO DAILY 03/16/21 03/16/21 History Mcg = 1000 Iu)] Fluticasone Nasal [place] [Flonase 1 spray EA NOSTRIL DAILY PRN 03/16/21 03/16/21 History Nasal [place]] Insulin Glargine,Hum.rec.anlog See Protocol SQ HS 03/16/21 03/16/21 History [Semglee Pen] Insulin Lispro [humaLOG Kwikpen] See Protocol SQ AC-TID 03/16/21 03/16/21 History Multivitamins, Thera [Multivitamin 1 tab PO DAILY 03/16/21 03/16/21 History (formulary)] Omeprazole 20 mg PO HS 03/16/21 03/16/21 History Allergies Allergy/AdvReac Type Severity Reaction Status Date / Time buprenorphine [From Suboxone] Allergy Swelling Verified 03/16/21 09:55 duloxetine [From Cymbalta] Allergy Confusion Verified 03/16/21 09:55 naloxone [From Suboxone] Allergy Swelling Verified 03/16/21 09:55 NSAIDS (Non-Steroidal Allergy Unknown Verified 03/16/21 09:55 Anti-Inflamma Childhood Surgical - Exam Osteopathic Statement: *. No significant issues noted on an osteopathic structural exam other than those noted in the History and Physical/Consult. Vital Signs Temp Pulse Resp BP Pulse Ox 97.9 F 109 H 19 210/137 97 03/15/21 21:39 03/15/21 21:39 03/15/21 21:39 03/15/21 21:39 03/15/21 21:39 - General well developed, well nourished, no distress - Neck no masses, no bruits, trachea midline, no lymphadectomy, no venous distension lymphadenopathy: absent, carotid bruit: absent - Respiratory normal expansion, clear to percussion - Cardiovascular Rhythm: regular - Abdomen Abdomen: soft, non tender Femoral pulses are intact bilaterally. The popliteal, DP and PT pulses are absent on the right. There is no leg edema. Toes are freely movable. Excellent capillary refill is noted. There is a chronic although healing wound on the lateral aspect of her foot near her lateral malleolus. No surrounding cellulitic reaction is noted. Results - Labs 03/15/21 23:25 03/17/21 06:03 Abnormal Lab Results - Last 24 Hours (Table) 03/16/21 03/16/21 03/17/21 Range/Units 16:45 20:48 06:03 Sodium 134 L (137-145) mmol/L Creatinine 0.38 L (0.52-1.04) mg/dL Glucose 183 H (74-99) mg/dL POC Glucose (mg/dL) 175 H 131 H (75-99) mg/dL 03/17/21 03/17/21 Range/Units 07:13 11:25 Sodium (137-145) mmol/L Creatinine (0.52-1.04) mg/dL Glucose (74-99) mg/dL POC Glucose (mg/dL) 178 H 158 H (75-99) mg/dL Diabetes panel 03/17/21 Range/Units 06:03 Sodium 134 L (137-145) mmol/L Potassium 3.8 (3.5-5.1) mmol/L Chloride 103 (98-107) mmol/L Carbon Dioxide 26 (22-30) mmol/L BUN 14 (7-17) mg/dL Creatinine 0.38 L (0.52-1.04) mg/dL Glucose 183 H (74-99) mg/dL Calcium 8.9 (8.4-10.2) mg/dL Calcium panel 03/17/21 Range/Units 06:03 Calcium 8.9 (8.4-10.2) mg/dL Pituitary panel 03/17/21 Range/Units 06:03 Sodium 134 L (137-145) mmol/L Potassium 3.8 (3.5-5.1) mmol/L Chloride 103 (98-107) mmol/L Carbon Dioxide 26 (22-30) mmol/L BUN 14 (7-17) mg/dL Creatinine 0.38 L (0.52-1.04) mg/dL Glucose 183 H (74-99) mg/dL Calcium 8.9 (8.4-10.2) mg/dL Adrenal panel 03/17/21 Range/Units 06:03 Sodium 134 L (137-145) mmol/L Potassium 3.8 (3.5-5.1) mmol/L Chloride 103 (98-107) mmol/L Carbon Dioxide 26 (22-30) mmol/L BUN 14 (7-17) mg/dL Creatinine 0.38 L (0.52-1.04) mg/dL Glucose 183 H (74-99) mg/dL Calcium 8.9 (8.4-10.2) mg/dL - Imaging CT scan - pelvis: report reviewed, image reviewed Assessment and Plan Assessment: Assessment: #1: Right lower extremity radicular-type pain, suspect lumbar disc disease. I believe this is the main source of the patient's discomfort. #2: History of right lower extremity occlusive disease, status post right common femoral thromboendarterectomy with patch angioplasty and balloon dilation of the femoral and iliac segments. I do not believe this is the underlying cause of the patient's current complaint of radicular type leg pain. #3: History of tobacco use. Recommendation: #1: Will obtain arterial Doppler study from the outpatient office. #2: Recommend neurology/possible spine surgery evaluation in reference to patient's current constellation of complaints Time with Patient: Greater than 30
--- NOTE | 2021-03-17 13:25 | P.PN ---
Subjective Progress Note Date: 03/17/21 This is a 50-year-old female patient with a history of hypertension, diabetes, PAD with recent right femoral endarterectomy and patch angioplasty with right SFA balloon angioplasty and stenting as well as external iliac artery stenting and family history of premature CAD with a brother passing away of an AR at the age of 36. She also has a history of nicotine dependence, quit smoking about one month ago. Presented to the emergency department with complaints of right lower extremity edema and pain. She has concerns that there may be an infection at the site of the stent and she's had issues in the past with a hernia mesh and she is afraid that her body is having the same reaction to the stent. We are asked to see the patient in consultation due to an elevation in the troponins. Troponins were drawn on admission and came back at 0.018, 0.049 and 0.032. She's had cardiac workup in the past but in several years. She denies any complaints of chest discomfort. She's had no shortness of breath. She said no palpitations, she has lower extremity edema on the right side but no orthopnea or PND. Right Lower extremity venous duplex showed no evidence of DVT. 03/17/21 The patient was seen and examined resting comfortably in bed. She feels the pain in her leg have improved. She has less tearful today. Vital signs have been stable. Echocardiogram with Doppler study showed a normal LV systolic function with an ejection fraction between 55-60% with mild MR and mild TR. She underwent computed tomography scan of lumbar spine which did show spondylotic changes in the lower lumbar spine with posterior disc herniation at L4 through L5 and L5 through S1 but no significant spinal stenosis. She is awaiting evaluation by vascular. Edema in the right leg is much better. Objective - Vital Signs Vital signs: Vital Signs Temp 98.5 F 03/17/21 07:49 Pulse 79 03/17/21 07:49 Resp 18 03/17/21 07:49 BP 123/75 03/17/21 07:49 Pulse Ox 95 03/17/21 07:49 Intake & Output 03/16/21 03/17/21 03/17/21 18:59 06:59 18:59 Intake Total 600 900 250 Output Total 400 Balance 200 900 250 Intake: Intake, IV Titration 900 Amount Sodium Chloride 0.9% 1, 900 000 ml @ 75 mls/hr IV . [id number] [facility] Rx#:[id number] Oral 600 250 Output: Urine 400 Other: Voiding Method Bedside Commode Bedside Commode Bedside Commode # Voids 2 # Bowel Movements 1 - Exam HEENT: Head is atraumatic, normocephalic. Pupils are equal, round. Sclerae anicteric. Conjunctivae are clear. Mucous membranes of the mouth are moist. Neck is supple. There is no elevated jugular venous pressure. No carotid bruit is heard. CHEST EXAMINATION: Clear to auscultation bilaterally. No wheezes rales or rhonchi. Respirations even and nonlabored. HEART EXAMINATION: Heart regular, positive S1 and S2. No S3. No S4. No clicks , rubs or murmurs. ABDOMEN: Soft, nontender. Bowel sounds are heard. No organomegaly noted. EXTREMITIES: 2+ right pedal pulse and 1+ left pedal pulse with evidence of trace right lower extremity edema. Healing wound noted to the lateral aspect of the right ankle. NEUROLOGIC EXAMINATION: Patient is awake, alert and oriented x3. - Labs CBC & Chem 7: 03/15/21 23:25 03/17/21 06:03 Labs: Abnormal Lab Results - Last 24 Hours (Table) 03/16/21 03/16/21 03/17/21 Range/Units 16:45 20:48 06:03 Sodium 134 L (137-145) mmol/L Creatinine 0.38 L (0.52-1.04) mg/dL Glucose 183 H (74-99) mg/dL POC Glucose (mg/dL) 175 H 131 H (75-99) mg/dL 03/17/21 03/17/21 Range/Units 07:13 11:25 Sodium (137-145) mmol/L Creatinine (0.52-1.04) mg/dL Glucose (74-99) mg/dL POC Glucose (mg/dL) 178 H 158 H (75-99) mg/dL Assessment and Plan Assessment: #1 minimal troponin elevation, not consistent with acute coronary event, no complaints of chest discomfort #2 PAD currently with complaints of right lower extremity pain and edema #3 diabetes mellitus #4 hypertension #5 family history of premature CAD #6 prior nicotine dependence Plan: From cardiology's perspective troponin elevation not consistent with acute coronary event. We will plan to see the patient in follow-up as an outpatient at which time we'll schedule her for further testing including stress test. HYDROLOGY PROFESSOR note has been reviewed, I agree with a documented findings and plan of care. Patient was seen and examined.
[2021-03-17 16:50] LABS: Glucose,Whole Blood 179 mg/dL (75-99)
[2021-03-17] MEDS ORDERED: LORazepam 2 MG/ML INJ IV STA (18:52)
[2021-03-17] MEDS ORDERED: LORazepam 2 MG/ML INJ IV PRN (18:53)
--- NOTE | 2021-03-17 18:59 | P.PN ---
Subjective This is a pleasant 50 years old female with past medical history of diabetes mellitus. Patient presents because of right leg pain and swelling. Patient states that on 01/04/2021 patient had the stent placed in the right leg by Dr. Byrne, 16 she's been using a cane Rosalind patient noticed that her right leg strap to swollen, and was told about it by her boyfriend as well. And next day starts hurting with pain in the inner thigh radiating to the groin and radiating to the back and give her some back spasm, she states that her pain in her leg is severe tenderness/10 and the Dilaudid 1 mg barely take the age of 7 down to 8/10. It feels like tight and hot. Also she feels pain in her toes recommended to the ankle feel like valdemar pain. She has a small wound on the lateral side of the ankle about 1 inch with no obvious surrounding cellulitis but there is mild purulent discharge and the dressing is in place. Other than that she denies any chest pain or dyspnea or coughing. No headache or weakness or dizziness or numbness. No abdominal pain or vomiting or diarrhea. No urinary complaints. She used to smoke and quit about one month ago. Call or illicit tracts. Vital otherwise she is hemodynamically stable. WBC is normal. INR 0.9, d-dimer -0.48. Glucose 187 and 188. Troponin is elevated 1 time, it was normal 0.01 and then elevated 0.04 before it was back to normal at 0.03. BMP, liver enzymes are unremarkable. Magnesium 1.6. Lactic acid is normal at 1.4. Venous Doppler is negative for DVT in both legs. Echocardiogram showed ejection fraction of 55% 6%. In the emergency room patient was started on Dilaudid and normal saline at 130 milliliters per hour Guide Dog Trainer and vascular surgery were consulted, as per staff both surfaces are aware of the consult 03/17/2021 Patient is clinically similar to yesterday still have difficulty moving her for right lower extremity because of severe pain when she tries to move it, it looks only slightly more swollen compared to the left side, no apparent deformity or discoloration. No apparent evidence of trauma. Vascular surgery team the don't believe it's due to blood vessel abnormality. I discussed the case with neurology service differential including radiculopathy versus plexopathy versus neuropathy. Neurologist recommended an MRI of the lumbar spine and if that's negative then patient would need nervous study as an outpatient. Because patient is going for MRI we will order fluids for 18 hours, Ativan as needed. Also we will order PT/OT to see the patient Patient states that her right foot lateral wound is a small and is healing. Continue with wound care and wound consult Objective - Vital Signs Vital signs: Vital Signs Temp 97.8 F 03/17/21 14:00 Pulse 85 03/17/21 14:00 Resp 18 03/17/21 14:00 BP 148/73 03/17/21 14:00 Pulse Ox 94 L 03/17/21 14:00 Intake & Output 03/16/21 03/17/21 03/17/21 18:59 06:59 18:59 Intake Total 600 900 250 Output Total 400 450 Balance 200 900 -200 Intake: Intake, IV Titration 900 Amount Sodium Chloride 0.9% 1, 900 000 ml @ 75 mls/hr IV . [id number] [facility] Rx#:[id number] Oral 600 250 Output: Urine 400 450 Other: Voiding Method Bedside Commode Bedside Commode Bedside Commode # Voids 2 # Bowel Movements 1 - Exam GENERAL: The patient is alert and oriented x3, not in any acute distress. Well developed, well nourished. HEENT: Pupils are round and equally reacting to light. EOMI. No scleral icterus. No conjunctival pallor. Normocephalic, atraumatic. No pharyngeal erythema. No thyromegaly. CARDIOVASCULAR: S1 and S2 present. No murmurs, rubs, or gallops. PULMONARY: Chest is clear to auscultation, no wheezing or crackles. ABDOMEN: Soft, nontender, nondistended, normoactive bowel sounds. No palpable organomegaly. MUSCULOSKELETAL: No joint swelling or deformity. -EXTREMITIES: No cyanosis, clubbing, or pedal edema. Right leg is slightly swollen and painful for the patient, decreased movement in the toes and knee due to pain, no discoloration, no deformity or redness or blisters. Also patient has a small wound about 1 inch in diameter on the lateral side of the ankle with no significant surrounding cellulitis. Examination and movement is limited by pain and tenderness NEUROLOGICAL: Gross neurological examination did not reveal any focal deficits. SKIN: No rashes. No petechiae - Labs CBC & Chem 7: 03/15/21 23:25 03/17/21 06:03 Labs: Abnormal Lab Results - Last 24 Hours (Table) 03/16/21 03/17/21 03/17/21 Range/Units 20:48 06:03 07:13 Sodium 134 L (137-145) mmol/L Creatinine 0.38 L (0.52-1.04) mg/dL Glucose 183 H (74-99) mg/dL POC Glucose (mg/dL) 131 H 178 H (75-99) mg/dL 03/17/21 03/17/21 Range/Units 11:25 16:49 Sodium (137-145) mmol/L Creatinine (0.52-1.04) mg/dL Glucose (74-99) mg/dL POC Glucose (mg/dL) 158 H 179 H (75-99) mg/dL Assessment and Plan Assessment: Right leg pain and swelling, rule out vascular versus neurological causes. Movement restricted due to pain. Mildly elevated troponin, acute coronary syndrome has been ruled out right lateral ankle wound, with no obvious surrounding cellulitis Diabetes mellitus Previous nicotine dependence total one month ago Obesity with BMI of 53.1 Plan: this is a pleasant 50 years old female who presents with right leg pain and swelling. Continue with pain management continue with aspirin and Plavix , we are going to add heparin subcutaneously Vascular surgery already consulted, they don't believe it's the main cause of the patient's symptoms Consult neurology service who recommended MRI of the lumbar spine Guide Dog Trainer cleared the patient from their perspective with recommendation for outpatient stress test 1 consult for her right foot wound Labs and medication were reviewed.. Continue same treatment. Continue with symptomatic treatment. Resume home medication. Monitor lytes and vitals. DVT and GI prophylaxis. Further recommendations depends on the clinical course of the patient DVT prophylaxis: Subcutaneous heparin GI Prophylaxis: Pepcid PT/OT: Pending, deferred Prognosis is guarded
[2021-03-17 19:09] LABS: Immunoglobulin M 89.2 mg/dL (40.0-280.0)
--- NOTE | 2021-03-17 20:17 | P.PN ---
Subjective Progress Note Date: 03/17/21 This is a telemedicine followup performed on this patient today on 03/17/2021. Patient complains of pain in the left leg. Patient has 8/10 pain in the second and third toes of the right foot, 5/10 pain in the right alvares, thigh and the groin region. Patient also complains of 6/10 low back pain. Patient states that she started Lyrica from today. She was on it number of years ago but has stopped taking it. Now she is back on it from today. Objective - Vital Signs Vital signs: Vital Signs Temp 98.5 F 03/17/21 07:49 Pulse 79 03/17/21 07:49 Resp 18 03/17/21 07:49 BP 123/75 03/17/21 07:49 Pulse Ox 95 03/17/21 07:49 Intake & Output 03/16/21 03/17/21 03/17/21 18:59 06:59 18:59 Intake Total 600 900 250 Output Total 400 Balance 200 900 250 Intake: Intake, IV Titration 900 Amount Sodium Chloride 0.9% 1, 900 000 ml @ 75 mls/hr IV . [id number] [facility] Rx#:[id number] Oral 600 250 Output: Urine 400 Other: Voiding Method Bedside Commode Bedside Commode Bedside Commode # Voids 2 # Bowel Movements 1 - Exam Patient's exam is essentially unchanged. Mental status and speech-language functions are normal. Cranial nerves are normal. - Labs CBC & Chem 7: 03/15/21 23:25 03/17/21 06:03 Labs: Abnormal Lab Results - Last 24 Hours (Table) 03/16/21 03/16/21 03/16/21 Range/Units 12:41 16:45 20:48 Sodium (137-145) mmol/L Creatinine (0.52-1.04) mg/dL Glucose (74-99) mg/dL POC Glucose (mg/dL) 188 H 175 H 131 H (75-99) mg/dL 03/17/21 03/17/21 03/17/21 Range/Units 06:03 07:13 11:25 Sodium 134 L (137-145) mmol/L Creatinine 0.38 L (0.52-1.04) mg/dL Glucose 183 H (74-99) mg/dL POC Glucose (mg/dL) 178 H 158 H (75-99) mg/dL Assessment and Plan Assessment: * Right leg pain, somewhat in distribution of the saphenous nerve. Differential is between saphenous neuropathy versus plexopathy versus radiculopathy. * Diabetes poorly controlled * Hypertension * Peripheral vascular disease, status post stenting in the right leg on 01/04/2021 * Tobacco use Plan: * Agree with trying Lyrica 100 mg twice a day. If needed, may increase the dose to 150 mg twice a day. * Check MRI of the lumbar spine with and without contrast to evaluate for disc herniation. * Optimize control of diabetes. Her last hemoglobin A1c 11.8 on 12/30/2020. * EMG and nerve conduction study of right lower extremity as an outpatient to evaluate for mononeuropathy versus mononeuritis multiplex versus lumbar plexopathy. * 2-D echo revealed mild concentric LVH. EF is between 55-60%. Left atrium is moderately dilated. * B12 440, folate 12.60, TSH 2.49, ESR 14, IgG 743, IgM 89.2 normal. Immune fixation electrophoresis, RICHARD, B6 still pending. * Discussed with Dr. whiting in detail. * Dr. Rick Weller will resume neurology service in the morning.
[2021-03-17 22:35] LABS: Glucose,Whole Blood 243 mg/dL (75-99)
[2021-03-18] MEDS: HYDROcodone/APAP 7.5-325MG 1 EACH TAB PO PRN ×3 (00:09→13:37)
[2021-03-18] MEDS: HYDROmorphone 1 MG/ML 1 ML SYRINGE IVP PRN ×7 (01:47→21:58)
[2021-03-18 07:01] LABS: Glucose,Whole Blood 177 mg/dL (75-99)
[2021-03-18] MEDS: INSULIN ASPART (NovoLOG) 100 UNIT/ML VIAL SQ SCH ×4 (07:28→22:00)
[2021-03-18] MEDS: NICOTINE 14MG/24HR PATCH TRANSDERM SCH (07:29)
[2021-03-18] MEDS: lisinopriL 10 MG TAB PO SCH ×2 (07:29→22:00)
[2021-03-18] MEDS: HEPARIN SODIUM,PORCINE/PF 5,000 UNIT/0.5 ML SYRINGE SQ SCH ×2 (07:29→17:13)
[2021-03-18] MEDS: ASPIRIN 81 MG PO SCH (07:29)
[2021-03-18] MEDS: PREGABALIN 100 MG CAP PO SCH ×2 (07:29→22:00)
[2021-03-18] MEDS: CLOPIDOGREL 75 MG TAB PO SCH (07:29)
[2021-03-18] MEDS: CHOLECALCIFEROL 25 MCG (1000 IU) TABLET PO SCH (07:29)
[2021-03-18] MEDS: ATORVASTATIN 40 MG TAB PO SCH (07:29)
[2021-03-18] MEDS: SODIUM CHLORIDE 0.9% 1,000 ML IV SCH (07:30)
[2021-03-18] MEDS ORDERED: LORazepam 2 MG/ML INJ IV PRN (10:10)
--- NOTE | 2021-03-18 10:48 | P.CONS ---
History of Present Illness - Reason for Consult Consult date: 03/18/21 wound care - History of Present Illness This is a 50-year-old patient known to the wound care center with a right lateral ulceration. The patient has been utilizing honey gel to the site. The ulceration shows granulation throughout the wound bed with minimal slough.Original cause of wound was Blister. The wound is currently classified as a Grade 2 wound with etiologies of Diabetic Wound/Ulcer of the Lower Extremity and Arterial Insufficiency Ulcer and is located on the Right,Lateral Foot. The wound measures 2.4cm length x 1.5cm width x 0.2cm depth; 2.827cm^2 area and 0.565cm^3 volume. There is no tunneling or undermining noted. There is a small amount of serous drainage noted. The wound margin is well defined and not attached to the wound base. There is no granulation within the wound bed. There is a large (67-100%) amount of necrotic tissue within the wound bed including Adherent Slough. The periwound skin appearance exhibited: Scarring, Maceration, Ecchymosis. The periwound skin appearance did not exhibit: Callus, Crepitus, Excoriation, Induration, Rash, Dry/Scaly, Atrophie [place], Cyanosis, Hemosideri n Staining, Mottled, Pallor, Rubor, Erythema. Periwound temperature was noted as No Abnormality. The periwound has tenderness on palpation. Review Of Systems: Constitutional: No fever, no chills, no night sweats. No weight change. No weakness, fatigue or lethargy. No daytime sleepiness. Integumentary:reports wounds, no lesions. No rash or pruritus. No unusual bruising. No change in hair or nails. Physical exam: General Appearance: Alert, cooperative, no distress, appears stated age. Skin: See HPI all other Skin color, texture, tugor normal, no rashes or lesions. Neurologic: Alert oriented x3 Assessment: 1. Arthrosclerosis of [place] arteries of right leg with ulceration of other partner foot 2. Diabetes mellitus due to underlying condition with foot ulcer 3. 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 Apply honey gel, nonstick pad, dry gauze, and secure with paper tape. Change Thursday. 2. Next appointment will be April 03 @ 08:00 Thank you for the consultation any questions please contact the wound care center DNP note has been reviewed and discussed with Dr. Jara and the impression and plan of care has been directed as dictated. Past Medical History Past Medical History: Diabetes Mellitus Additional Past Medical History / Comment(s): bowel obstruction, kidney stones History of Any Multi-Drug Resistant Organisms: MRSA Year Discovered:: 2012 MDRO Source:: stomach mesh Past Surgical History: Back Surgery, Bladder Surgery, Section, Cholecystectomy, Hernia Repair, Hysterectomy, Orthopedic Surgery Additional Past Surgical History / Comment(s): Ablation of lumbar nerve Past Anesthesia/Blood Transfusion Reactions: No Reported Reaction Past Psychological History: No Psychological Hx Reported Smoking Status: Former smoker Past Alcohol Use History: Rare Past Drug Use History: None Reported Medications and Allergies Home Medications Medication Instructions Recorded Confirmed Type Aspirin 81 mg PO DAILY tab 01/09/21 03/16/21 Rx Clopidogrel [Plavix] 75 mg PO DAILY tab 01/09/21 03/16/21 Rx Nicotine 14Mg/24Hr Patch [Habitrol] 1 patch TRANSDERM DAILY patch 01/09/21 03/16/21 Rx Pregabalin [Lyrica] 100 mg PO BID #6 cap 01/09/21 03/16/21 Rx Temazepam [Restoril] 15 mg PO HS PRN #3 cap 01/09/21 03/16/21 Rx lisinopriL [Zestril] 10 mg PO DAILY tab 01/09/21 03/16/21 Rx Cholecalciferol [Vitamin D3 (25 25 mcg PO DAILY 03/16/21 03/16/21 History Mcg = 1000 Iu)] Fluticasone Nasal [place] [Flonase 1 spray EA NOSTRIL DAILY PRN 03/16/21 03/16/21 History Nasal [place]] Insulin Glargine,Hum.rec.anlog See Protocol SQ HS 03/16/21 03/16/21 History [Semglee Pen] Insulin Lispro [humaLOG Kwikpen] See Protocol SQ AC-TID 03/16/21 03/16/21 History Multivitamins, Thera [Multivitamin 1 tab PO DAILY 03/16/21 03/16/21 History (formulary)] Omeprazole 20 mg PO HS 03/16/21 03/16/21 History Allergies Allergy/AdvReac Type Severity Reaction Status Date / Time buprenorphine [From Suboxone] Allergy Swelling Verified 03/16/21 09:55 duloxetine [From Cymbalta] Allergy Confusion Verified 03/16/21 09:55 naloxone [From Suboxone] Allergy Swelling Verified 03/16/21 09:55 NSAIDS (Non-Steroidal Allergy Unknown Verified 03/16/21 09:55 Anti-Inflamma Childhood Physical Exam Vitals: Vital Signs Temp Pulse Resp BP BP Pulse Ox 03/18/21 07:45 20 03/18/21 07:34 98.5 F 85 18 143/77 94 L 03/18/21 02:24 97.9 F 80 16 136/77 96 03/17/21 19:27 97.4 F L 91 18 150/79 96 03/17/21 19:18 91 18 03/17/21 14:00 97.8 F 85 18 148/73 94 L Intake and Output 03/17/21 03/18/21 03/18/21 22:59 06:59 14:59 Intake Total 180 Output Total 450 Balance -450 180 Intake: Oral 180 Output: Urine 450 Other: Voiding Method Bedside Commode Bedside Commode # Voids 3 # Bowel Movements 1 Results CBC & Chem 7: 03/15/21 23:25 03/17/21 06:03 Labs: Abnormal Lab Results - Last 24 Hours (Table) 03/17/21 03/17/21 03/17/21 Range/Units 11:25 16:49 22:32 POC Glucose (mg/dL) 158 H 179 H 243 H (75-99) mg/dL 03/18/21 Range/Units 07:00 POC Glucose (mg/dL) 177 H (75-99) mg/dL Assessment and Plan (1) Non-pressure chronic ulcer of other part of right foot with fat layer exposed Current Visit: Yes Status: Acute Code(s): L97.512 - NON-PRS CHRONIC ULCER OTH PRT RIGHT FOOT W FAT LAYER EXPOSED SNOMED Code(s): 968292560 (2) Diabetic foot ulcer Current Visit: Yes Status: Acute Code(s): E11.621 - TYPE 2 DIABETES MELLITUS WITH FOOT ULCER; L97.509 - NON-PRESSURE CHRONIC ULCER OTH PRT UNSP FOOT W UNSP SEVERITY SNOMED Code(s): 564153732 (3) Atherosclerosis of [place] arteries of right leg with ulceration of other p art of foot Current Visit: No Status: Acute Code(s): I70.235 - ATHSCL [place] ARTERIES OF RIGHT LEG W ULCER OTH PRT FOOT SNOMED Code(s): 122556622
[2021-03-18 11:38] LABS: Glucose,Whole Blood 203 mg/dL (75-99)
--- NOTE | 2021-03-18 11:40 | MR ---
EXAMINATION TYPE: MR lumbar spine wo/w con DATE OF EXAM: 03/18/2021 COMPARISON: CT lumbar spine 2 days ago HISTORY: Lumbar radiculopathy. Low back pain. TECHNIQUE: Multiplanar, multisequence images of the lumbar spine is performed without and with IV contrast, util izing 9 mL intravenous Gadavist FINDINGS: Sagittal images of the lumbar spine show vertebral body heights to remain satisfactory. Sli ght grade 1 retrolisthesis L3 on L4. Multilevel disc desiccation. Moderate to advanced disc space soledad rowing L4-L5 level with heterogeneous with a type II endplate changes.. The conus medullaris is norm al in position and signal ending superior L1 level. No suspicious postcontrast enhancement. Axial images show T12-L1, L1-L2, and L2-L3 levels all to appear within normal limits. Axial images at L3-L4 level show mild broad disc bulge with left central disc protrusion mildly effac ing the anterior thecal sac. Patent bilateral neural foramina. Axial images at the L4-L5 level show moderate facet arthropathy bilaterally. There is left paracentra l/foraminal disc protrusion on axial image 8 effacing the anterolateral thecal sac and left lateral r ecess. This is in close proximity to the central left L5 nerves. Mild left-sided inferior neural fora [place] narrowing. There is more moderate right-sided inferior neural foraminal narrowing due to broad disc bulge. Axial images at L5-S1 level show mild to moderate facet arthropathy bilaterally. There is broad base left paracentral disc protrusion. Spinal canal preserved. There is increased epidural fat at this lev el. There is moderate to severe left-sided neural foraminal narrowing sagittal image 3 and axial imag e 3. Right-sided neural foramina is patent. Paraspinal muscle bulk is maintained. IMPRESSION: Multilevel degenerative changes as detailed above. Increased left-sided encroachment note d in the lower lumbar spine as detailed above.
--- NOTE | 2021-03-18 12:14 | P.PN ---
Subjective Progress Note Date: 03/18/21 Principal diagnosis: Right leg pain The patient is seen and examined lying in bed. She is stating that she is still having pain down her right leg begins from her lower back and radiates down her buttocks all the way down. She states that she has a hot sensation in her right inner thigh. Neurology is on consult and ordered an MRI of the lumbar spine that shows multilevel degenerative changes. Increased left-sided encroachment noted in the lower lumbar spine as detailed above. Objective - Vital Signs Vital signs: Vital Signs Temp 98.5 F 03/18/21 07:34 Pulse 85 03/18/21 07:34 Resp 18 03/18/21 07:34 BP 143/77 03/18/21 07:34 Pulse Ox 94 L 03/18/21 07:34 Intake & Output 03/17/21 03/18/21 03/18/21 18:59 06:59 18:59 Intake Total 250 Output Total 450 Balance -200 Intake: Oral 250 Output: Urine 450 Other: Voiding Method Bedside Commode Bedside Commode # Voids 3 # Bowel Movements 1 - Exam GENERAL: Patient is alert and oriented 3. No acute distress. LUNGS: Clear to auscultation bilaterally, no wheezes, rales or rhonchi. HEART: Regular rate and rhythm without murmurs, rubs or gallops. ABDOMEN: Soft, nontender, no masses, no rebound, no guarding. EXTREMITIES: Right lower extremity palpable dorsalis pedis pulse with good capillary refill. Her leg is warm to the touch. She has a wound on her right lateral foot. NEUROLOGICAL: Normal motor function, normal sensation. - Labs CBC & Chem 7: 03/15/21 23:25 03/17/21 06:03 Labs: Abnormal Lab Results - Last 24 Hours (Table) 03/17/21 03/17/21 03/17/21 Range/Units 11:25 16:49 22:32 POC Glucose (mg/dL) 158 H 179 H 243 H (75-99) mg/dL 03/18/21 Range/Units 07:00 POC Glucose (mg/dL) 177 H (75-99) mg/dL Assessment and Plan Assessment: 1. Right lower extremity radicular type pain, suspect lumbar disc disease. 2. History of of right lower extremity occlusive disease status post right common femoral thromboendarterectomy with patch angioplasty and balloon dilation of the femoral and iliac segments 3. History of tobacco use Plan: 1. Patient recently underwent outpatient arterial study, requesting study from office 2. Recommend continued follow-up with neurology or possible spine surgery evaluation for symptoms as we do not believe it is related to any occlusive disease 3. Continue with dressing changes per recommendations from wound care 4. Recommend physical therapy The impression and plan of care has been dictated as directed. Dr. Ceballos I performed a history and examination of this patient, discussed the same with the dictator. I agree with the dictator's note ,documented as a scribe. Any additional findings or plans will be noted.
[2021-03-18 16:44] LABS: Glucose,Whole Blood 184 mg/dL (75-99)
--- NOTE | 2021-03-18 17:02 | P.PN ---
Subjective Progress Note Date: 03/18/21 I am seeing the patient for the first time for neurological management. Please refer to Dr. Boss's notes for further details. According to the patient she has been having swelling over the right lower ex tremity as well changes in color over the right lower extremity (it gets redish, purplish). She said she has been having pain over the right foot that travels up the leg and sometimes has cramps in leg and lower back as result. She has history of disc herniation over lower back and had surgery in the past. Patient had MRI L-spine today and it is reported as: 2 level degenerative changes. Increased left-sided encroachment noted in the lower lumbar spine. In the body of the report it is reported that the patient has moderate facet after breathy bilaterally over the L4-L5 with the left for maternal disc protrusion. There is also close proximity in the central left L5 nerves. There is more moderate right sided inferior neuroforaminal narrowing over the L4-L5. Over the L5-S1 there is mild to moderate facet arthropathy and there is moderate to severe left-sided neural foraminal narrowing. Objective - Vital Signs Vital signs: Vital Signs Temp 97.6 F 03/18/21 14:00 Pulse 89 03/18/21 14:00 Resp 18 03/18/21 14:00 BP 107/60 03/18/21 14:00 Pulse Ox 96 03/18/21 14:00 Intake & Output 03/17/21 03/18/21 03/18/21 18:59 06:59 18:59 Intake Total 250 480 Output Total 450 400 Balance -200 80 Intake: Oral 250 480 Output: Urine 450 400 Other: Voiding Method Bedside Commode Bedside Commode Bedside Commode # Voids 3 # Bowel Movements 1 - Exam Patient is alert awake oriented to time place and person. Speech and language functions are normal. Attention, concentration and fund of knowledge is adequate. On cranial nerve examination, pupils are round and reacting to light, visual pimentel are full on confrontation, extraocular muscles are intact with no nystagmus. Face is symmetric, tongue protrudes to the midline. Palatal elevation and sensation normal, hearing and shoulder shrug normal, facial sensation normal. Shoulder shrug normal. Motor: Gait is deferred. Bilateral upper extremity strength is 5/5. Her right lower extremity there is limitation in assessing strength because of pain. She has at least 3-4- over right hip, has right knee extension above gravity. Right ankle dorsiflexion is 2 while plantarflexion is 4. Left hip is 4+ to 5- and left knee is 4+ and left ankle is 5/5. According to patient left side is old findings. Tone and bulk of muscles normal. Sensory to touch is normal to touch throughout. Cerebellar function showed no ataxia for [id number] testing. No dysdiado chokinesia. Deep tendon reflexes are 2+ throughout bilateral patellar while ankles are 1+ bilaterally. Plantars are mute bilaterally. WORK-UP: Her last hemoglobin A1c 11.8 on 12/30/2020. B12 440, folate 12.60, TSH 2.49, ESR 14, IgG 743, IgM 89.2 normal. 2-D echo revealed mild concentric LVH. EF is between 55-60%. Left atrium is moderately dilated. Duplex of right lower extremity: Negative for DVT. - Labs CBC & Chem 7: 03/15/21 23:25 03/17/21 06:03 Labs: Abnormal Lab Results - Last 24 Hours (Table) 03/17/21 03/17/21 03/18/21 Range/Units 16:49 22:32 07:00 POC Glucose (mg/dL) 179 H 243 H 177 H (75-99) mg/dL 03/18/21 03/18/21 Range/Units 11:37 16:42 POC Glucose (mg/dL) 203 H 184 H (75-99) mg/dL Assessment and Plan Assessment: * Right leg pain with edema, discoloration: Unkown exact etiology. Possible connection tissue disease (has positive RICHARD) vs ?peripheral vascular disease/arterial disease. Cannot rule out. I am not convinced it is due to lumbosacaral radiculopathy. * Lumbosacral radiculopathy * Lumboscaral spondylosis (that is moderate to severe over L5-S1 over the left and moderate over the L4-L5 over the right). Patient states has has known history of this in past. * Diabetes poorly controlled (Last hemoglobin A1c 11.8 on 12/30/2020) * Hypertension * Peripheral vascular disease, status post stenting in the right leg on 01/04/2021 ( Plan: * Patient had MRI L-spine today and it is reported as: 2 level degenerative changes. Increased left-sided encroachment noted in the lower lumbar spine. In the body of the report it is reported that the patient has moderate facet after breathy bilaterally over the L4-L5 with the left for maternal disc protrusion. There is also close proximity in the central left L5 nerves. There is more moderate right sided inferior neuroforaminal narrowing over the L4-L5. Over the L5-S1 there is mild to moderate facet arthropathy and there is moderate to severe left-sided neural foraminal narrowing. * Agree with trying Lyrica 100 mg twice a day. If needed, may increase the dose to 150 mg twice a day. * Orthopedic team is consulted by primary team. * Optimize control of diabetes. * Recommend EMG and nerve conduction study of right lower extremity as an outpatient to evaluate further. * Immune fixation electrophoresis, B6 still pending per Dr. Boss's request. * I ordered anti-dsDNA. * Recommend patient to follow-up with Legal Transcriber. * Pt and OT are consulted. * Will defer the rest of medical management to the primary team. * Upon discharge, recommend patient to follow-up with Neurologist within 1-2 weeks. The plan is discussed with the patient and her nurse. Rick Weller MD Neuro-Hospitalist Time with Patient: Less than 30
[2021-03-18 21:20] LABS: Glucose,Whole Blood 284 mg/dL (75-99)
[2021-03-18] MEDS: TEMAZEPAM 15 MG CAP PO PRN (22:07)
[2021-03-19] MEDS: HEPARIN SODIUM,PORCINE/PF 5,000 UNIT/0.5 ML SYRINGE SQ SCH ×4 (00:20→22:03)
[2021-03-19] MEDS: HYDROcodone/APAP 7.5-325MG 1 EACH TAB PO PRN ×2 (00:20→08:21)
[2021-03-19] MEDS: HYDROmorphone 1 MG/ML 1 ML SYRINGE IVP PRN ×5 (02:18→20:05)
[2021-03-19 07:12] LABS: Glucose,Whole Blood 213 mg/dL (75-99)
--- NOTE | 2021-03-19 07:29 | P.CONS ---
History of Present Illness - Chief Complaint Medical debility - History of Present Illness I had the opportunity to see patient for inpatient rehab consultation regard to medical debility. Patient admitted to [facility] March 16 with history of recent right leg vascular surgery requiring [facility] convalescent stay of [address] whiting. Seen by cardiology. Seen by neurology, Dr. Boss for neurogenic pain medication. Venous Doppler negative right leg DVT. Lumbar CT with DDD L3-5. Lumbar MRI L3 bulge with central encroachment and protrusion and facet change L4, 5 with central bilateral stenosis. PT reports modified independent bed mobility, transfers, gait 24 feet with roller walker. OT reports minimal assistance for lower dressing but otherwise modified independent all ADL activities. Previous functional history as elicited from patient: 50-year-old right-handed white female single lives in one floor home alone. There is a friend who lives in a trailer right next door. Patient works full-time. Previously independent including cooking, laundry, driving, standing shower and gait without device. Louann [place]. Denies tobacco and has very rare drink. Review of Systems Review of systems: ENT: Denies sneezes or discharge. Eyes: Denies discharge or photophobia. Cardiac: Denies chest pain or palpitation. Pulmonary: Denies cough or shortness of breath. Breast: Denies discharge or lumps. Gastrointestinal: Denies nausea, emesis, constipation, diarrhea. Genitourinary: Denies discharge or frequency. Musculoskeletal: Leg discomfort. Neurologic: Denies motor or sensory change. Endocrine: Denies shakes or sweats. Oncology: Denies cancers. Dermatologic: Denies rash, itching, pruritus. ALLERGY/immunology: Denies sneezes, rashes. Past Medical History Past Medical History: Diabetes Mellitus Additional Past Medical History / Comment(s): bowel obstruction, kidney stones History of Any Multi-Drug Resistant Organisms: MRSA Year Discovered:: 2012 MDRO Source:: stomach mesh Past Surgical History: Back Surgery, Bladder Surgery, Section, Cholecystectomy, Hernia Repair, Hysterectomy, Orthopedic Surgery Additional Past Surgical History / Comment(s): Ablation of lumbar nerve Past Anesthesia/Blood Transfusion Reactions: No Reported Reaction Past Psychological History: No Psychological Hx Reported Smoking Status: Former smoker Past Alcohol Use History: Rare Past Drug Use History: None Reported Medications and Allergies Home Medications Medication Instructions Recorded Confirmed Type Aspirin 81 mg PO DAILY tab 01/09/21 03/16/21 Rx Clopidogrel [Plavix] 75 mg PO DAILY tab 01/09/21 03/16/21 Rx Nicotine 14Mg/24Hr Patch [Habitrol] 1 patch TRANSDERM DAILY patch 01/09/21 03/16/21 Rx Pregabalin [Lyrica] 100 mg PO BID #6 cap 01/09/21 03/16/21 Rx Temazepam [Restoril] 15 mg PO HS PRN #3 cap 01/09/21 03/16/21 Rx lisinopriL [Zestril] 10 mg PO DAILY tab 01/09/21 03/16/21 Rx Cholecalciferol [Vitamin D3 (25 25 mcg PO DAILY 03/16/21 03/16/21 History Mcg = 1000 Iu)] Fluticasone Nasal [place] [Flonase 1 spray EA NOSTRIL DAILY PRN 03/16/21 03/16/21 History Nasal [place]] Insulin Glargine,Hum.rec.anlog See Protocol SQ HS 03/16/21 03/16/21 History [Semglee Pen] Insulin Lispro [humaLOG Kwikpen] See Protocol SQ AC-TID 03/16/21 03/16/21 Hist ory Multivitamins, Thera [Multivitamin 1 tab PO DAILY 03/16/21 03/16/21 History (formulary)] Omeprazole 20 mg PO HS 03/16/21 03/16/21 History Allergies Allergy/AdvReac Type Severity Reaction Status Date / Time buprenorphine [From Suboxone] Allergy Swelling Verified 03/16/21 09:55 duloxetine [From Cymbalta] Allergy Confusion Verified 03/16/21 09:55 naloxone [From Suboxone] Allergy Swelling Verified 03/16/21 09:55 NSAIDS (Non-Steroidal Allergy Unknown Verified 03/16/21 09:55 Anti-Inflamma Childhood Physical Exam Vitals: Vital Signs Temp Pulse Resp BP BP Pulse Ox 03/19/21 02:04 98.5 F 90 17 135/76 95 03/18/21 22:08 97.8 F 94 19 162/89 95 03/18/21 22:00 90 17 03/18/21 17:44 97.5 F L 90 18 138/81 95 03/18/21 14:00 97.6 F 89 18 107/60 96 03/18/21 07:45 20 03/18/21 07:34 98.5 F 85 18 143/77 94 L Intake and Output 03/18/21 03/18/21 03/19/21 14:59 22:59 06:59 Intake Total 480 Output Total 400 Balance 480 -400 Intake: Oral 480 Output: Urine 400 Other: Voiding Method Bedside Commode Bedside Commode # Bowel Movements 1 Skin: Good color, texture, turgor. General: Overweight build and comfortable appearance. Head: Normocephalic, atraumatic. Eyes: Symmetric. Pupils equal round. Ears: Symmetric. Hearing within normal limits. Mouth: Clear. Neck: Supple. Carotid without bruit. Cardiac: Regular rate and rhythm. Lungs: Clear anteriorly and posteriorly. Abdomen: Soft active nontender. Extremities: Normal tone. Neurological: Mental status: Alert, cooperative, pleasant. Cranial nerves: Symmetric facial tone and trapezius. Motor: Normal strength and isolation all 4 limbs. Perhaps giveaway weakness right leg. Sensation: Intact throughout. DTRs: Symmetric and equal throughout. Mobility: Did not attempt to sit or stand this early a.m. Results CBC & Chem 7: 03/15/21 23:25 03/17/21 06:03 Labs: Abnormal Lab Results - Last 24 Hours (Table) 03/17/21 03/18/21 03/18/21 Range/Units 09:40 07:00 11:37 POC Glucose (mg/dL) 177 H 203 H (75-99) mg/dL RICHARD Screen POSITIVE A (NEGATIVE) 03/18/21 03/18/21 Range/Units 16:42 21:19 POC Glucose (mg/dL) 184 H 284 H (75-99) mg/dL RICHARD Screen (NEGATIVE) Assessment and Plan (1) Cellulitis Current Visit: Yes Status: Acute Code(s): L03.90 - CELLULITIS, UNSPECIFIED SNOMED Code(s): 903744932 (2) Diabetic foot ulcer Current Visit: Yes Status: Acute Code(s): E11.621 - TYPE 2 DIABETES MELLITUS WITH FOOT ULCER; L97.509 - NON-PRESSURE CHRONIC ULCER OTH PRT UNSP FOOT W UNSP SEVERITY SNOMED Code(s): 957085792 Plan: Impression: 1. Medical debility with atherosclerosis right leg and cellulitis including diabetic foot ulcer. 2. Lumbar DDD with right leg radiculopathy. comments and plan: At this time PT and OT are ongoing. Basically described patient is modified independent. Functionally, patient too good for inpatient rehab at this time. We'll continue to follow with yourself though.
[2021-03-19] MEDS: PREGABALIN 100 MG CAP PO SCH ×2 (08:20→20:05)
[2021-03-19] MEDS: ATORVASTATIN 40 MG TAB PO SCH (08:24)
[2021-03-19] MEDS: CLOPIDOGREL 75 MG TAB PO SCH (08:24)
[2021-03-19] MEDS: ASPIRIN 81 MG PO SCH (08:24)
[2021-03-19] MEDS: lisinopriL 10 MG TAB PO SCH ×2 (08:24→20:05)
[2021-03-19] MEDS: NICOTINE 14MG/24HR PATCH TRANSDERM SCH (08:24)
[2021-03-19] MEDS: CHOLECALCIFEROL 25 MCG (1000 IU) TABLET PO SCH (08:24)
[2021-03-19] MEDS: INSULIN ASPART (NovoLOG) 100 UNIT/ML VIAL SQ SCH ×4 (08:24→22:03)
--- NOTE | 2021-03-19 10:39 | P.PN ---
Subjective Progress Note Date: 03/19/21 The patient is seen and examined lying in bed. States pain has somewhat improved. Not as severe in her lower back and buttocks. Still having some burning sensation in her thigh. Orthopedics has seen patient this morning and she states they are going to do further possible workup/intervention. Arterial duplex right lower extremity was viewed from the office showing patency of SFA stent was completed in February of this year. Objective - Vital Signs Vital signs: Vital Signs Temp 98 F 03/19/21 08:00 Pulse 84 03/19/21 08:00 Resp 18 03/19/21 08:00 BP 126/75 03/19/21 08:00 Pulse Ox 92 L 03/19/21 08:00 Intake & Output 03/18/21 03/19/21 03/19/21 18:59 06:59 18:59 Intake Total 480 Output Total 400 Balance 80 Intake: Oral 480 Output: Urine 400 Other: Voiding Method Bedside Commode Bedside Commode # Voids 1 # Bowel Movements 1 - Exam GENERAL: Patient is alert and oriented 3. No acute distress. LUNGS: Clear to auscultation bilaterally, no wheezes, rales or rhonchi. HEART: Regular rate and rhythm without murmurs, rubs or gallops. ABDOMEN: Soft, nontender, no masses, no rebound, no guarding. EXTREMITIES: Right lower extremity palpable dorsalis pedis pulse with good capillary refill. Her leg is warm to the touch. She has a wound on her right lateral foot. NEUROLOGICAL: Normal motor function, normal sensation. - Labs CBC & Chem 7: 03/15/21 23:25 03/17/21 06:03 Labs: Abnormal Lab Results - Last 24 Hours (Table) 03/17/21 03/18/21 03/18/21 Range/Units 09:40 11:37 16:42 POC Glucose (mg/dL) 203 H 184 H (75-99) mg/dL RICHARD Screen POSITIVE A (NEGATIVE) 03/18/21 03/19/21 Range/Units 21:19 07:11 POC Glucose (mg/dL) 284 H 213 H (75-99) mg/dL RICHARD Screen (NEGATIVE) Assessment and Plan Assessment: 1. Right lower extremity radicular type pain, suspect lumbar disc disease. 2. History of of right lower extremity occlusive disease status post right common femoral thromboendarterectomy with patch angioplasty and balloon dilation of the femoral and iliac segments 3. History of tobacco use Plan: 1. Recommend continued follow-up with neurology or possible spine surgery evaluation for symptoms as we do not believe it is related to any occlusive disease 2. Continue with dressing changes per recommendations from wound care 3. Recommend physical therapy 4. There is no indication for any vascular surgical intervention. Patient is cleared from vascular surgery for discharge once otherwise medically stable. She is to follow-up as scheduled with Dr. Byrne. The impression and plan of care has been dictated as directed. Dr. Byrne I performed a history and examination of this patient, discussed the same with the dictator. I agree with the dictator's note ,documented as a scribe. Any additional findings or plans will be noted.
[2021-03-19 11:23] LABS: Basophils # (A) 0.07 X 10*3/uL (0.00-0.10); Basophils % (A) 1.3 %; Eosinophils # (A) 0.17 X 10*3/uL (0.04-0.35); Eosinophils % (A) 3.1 %; HCT 39.5 % (37.2-46.3); HGB 12.1 g/dL (12.0-15.0); Lymphocytes # (A) 2.23 X 10*3/uL (0.90-5.00); Lymphocytes % (A) 40.3 %; MCH 27.3 pg (27.0-32.0); MCHC 30.6 g/dL (32.0-37.0); MCV 89.2 fL (80.0-97.0); Mean Platelet Volume 11.1 fL (9.5-12.2); Monocytes # (A) 0.48 X 10*3/uL (0.20-1.00); Monocytes % (A) 8.7 %; Neutrophils # (A) 2.56 X 10*3/uL (1.80-7.70); Neutrophils % (A) 46.1 %; Platelet Count 220 X 10*3/uL (140-440); RBC 4.43 X 10*6/uL (4.10-5.20); RDW 14.8 % (11.5-14.5); WBC 5.54 X 10*3/uL (4.50-10.00)
[2021-03-19 11:34] LABS: Anion Gap 12.3 mmol/L (10.00-18.00); BUN/Creat Ratio 28.51 Ratio (12.00-20.00); Blood Urea Nitrogen 12.4 mg/dL (9.0-27.0); Calcium 9.1 mg/dL (8.7-10.3); Carbon Dioxide 24.3 mmol/L (20.0-27.5); Magnesium 1.8 mg/dL (1.5-2.4); Non-African American GFR(CKD) 117.3 (60.0-200.0); Potassium 4.6 mmol/L (3.5-5.5)
[2021-03-19 11:40] LABS: Glucose,Whole Blood 172 mg/dL (75-99)
--- NOTE | 2021-03-19 12:06 | P.CNOR ---
<Josh Darby - Last Filed: 03/19/21 12:00> History of Present Illness - [facility] Consult date: 03/19/21 Requesting physician: Shivam E Marco A Consult reason: other (Right lower extremity pain and weakness) History of present illness: Patient is very pleasant 50-year-old female who is seen and examined at the bedside in regards to her lumbar spine. Patient states on 12/29/2020 she began to have pain in her right lower extremity. She felt this was a regards to sciatic pain she was experiencing previously. She presented to [facility] for further evaluation. She states she was found to have occlusion at her right lower extremity and underwent a right common femoral thromboendarterectomy and patch angioplasty as well as right iliac and femoral balloon dilation approximately 2 months ago. Following the procedure she has had significant weakness with right lower extremity. She states she has difficulty with dorsiflexion, plantarflexion, and extensor hallucis longus on the right. She is also been experiencing some swelling, erythema, and pain in the right lower extremity. She does have some erythema in the toes on the right today. She does have a wound over the right lateral portion of the foot and has been treated by wound care. This wound is improving. She states she does have some pain that starts in her foot and radiates all the way up her leg and into her back. Occasionally she has some pain that radiates down the right lower extremity as well. She continues to be seen by neurology and has undergone extensive evaluation plus far. She has had lumbar MRI imaging. She states she has been seen by vascular surgery without any new significant findings in regards to blockage for the right lower extremity. She denies any left lower extremity weakness or radiculopathy bilaterally. She states she sustained a fall this previous , 03/14/2021, and presented to the hospital on Thursday for further evaluation. At that time she did have significant pain radiated up her leg and through her paraspinal muscles of the lumbar and thoracic spine. She's been in the hospital since that time. Consultation was placed with pain management yesterday. Patient has a history of previous laminectomy decompression at L4-5 performed in 2005. She states she underwent injections in 2018 with benefit. She has not had recent injections regards to her lumbar spine. She states she is having some difficulty with pain control. She is receiving IV Dilaudid and oral [place] 7.5 mg/325 mg. She has a history of diabetes mellitus and obesity. Patient does admit to difficulty with previous surgical interventions and has had complication with hernia repair surgery in the past. Past Medical History Past Medical History: Diabetes Mellitus Additional Past Medical History / Comment(s): bowel obstruction, kidney stones History of Any Multi-Drug Resistant Organisms: MRSA Year Discovered:: 2012 MDRO Source:: stomach mesh Past Surgical History: Back Surgery, Bladder Surgery, Section, Chol ecystectomy, Hernia Repair, Hysterectomy, Orthopedic Surgery Additional Past Surgical History / Comment(s): Ablation of lumbar nerve Past Anesthesia/Blood Transfusion Reactions: No Reported Reaction Past Psychological History: No Psychological Hx Reported Smoking Status: Former smoker Past Alcohol Use History: Rare Past Drug Use History: None Reported Medications and Allergies Home Medications Medication Instructions Recorded Confirmed Type Aspirin 81 mg PO DAILY tab 01/09/21 03/16/21 Rx Clopidogrel [Plavix] 75 mg PO DAILY tab 01/09/21 03/16/21 Rx Nicotine 14Mg/24Hr Patch [Habitrol] 1 patch TRANSDERM DAILY patch 01/09/21 03/16/21 Rx Pregabalin [Lyrica] 100 mg PO BID #6 cap 01/09/21 03/16/21 Rx Temazepam [Restoril] 15 mg PO HS PRN #3 cap 01/09/21 03/16/21 Rx lisinopriL [Zestril] 10 mg PO DAILY tab 01/09/21 03/16/21 Rx Cholecalciferol [Vitamin D3 (25 25 mcg PO DAILY 03/16/21 03/16/21 History Mcg = 1000 Iu)] Fluticasone Nasal [place] [Flonase 1 spray EA NOSTRIL DAILY PRN 03/16/21 03/16/21 History Nasal [place]] Insulin Glargine,Hum.rec.anlog See Protocol SQ HS 03/16/21 03/16/21 History [Semglee Pen] Insulin Lispro [humaLOG Kwikpen] See Protocol SQ AC-TID 03/16/21 03/16/21 History Multivitamins, Thera [Multivitamin 1 tab PO DAILY 03/16/21 03/16/21 History (formulary)] Omeprazole 20 mg PO HS 03/16/21 03/16/21 History Allergies Allergy/AdvReac Type Severity Reaction Status Date / Time buprenorphine [From Suboxone] Allergy Swelling Verified 03/16/21 09:55 duloxetine [From Cymbalta] Allergy Confusion Verified 03/16/21 09:55 naloxone [From Suboxone] Allergy Swelling Verified 03/16/21 09:55 NSAIDS (Non-Steroidal Allergy Unknown Verified 03/16/21 09:55 Anti-Inflamma Childhood Physical Examination Physical exam: Patient is awake, alert, and oriented 3 Vital signs stable Good chest excursion with deep inspiration and expiration Abdomen soft nontender Examination of lumbar spine reveals skin is intact with no abrasions, lacerations, or bruises; no erythema, purulence or signs of infection Evidence of a small well-healed incision at the lumbar spine Dorsiflexion, plantarflexion, and extensor hallucis longus positive sustained on the left Lower extremity strength 5/5 bilaterally on the left Patient is able to perform active range of motion with hip flexion and knee extension on the right Patient has significant DIFFICULTY performing dorsiflexion, plantarflexion, and extensor hallucis longus on the right Patellar reflex 2+ on the left Plantar reflex 0+ on the right No lower extremity hyperreflexia bilaterally Straight leg test negative bilateral lower extremities Negative Lasegue's test bilaterally No signs or symptoms of DVT; no calf pain No pain with internal and external rotation of the hips bilaterally Neurovascularly intact Evidence of dressing intact over the right foot for wound which is currently being treated by wound care Some erythema over the toes of the right foot No significant swelling or erythema over the left lower extremity Results Pertinent studies: MRI lumbar spine taken on 03/18/2021: T12-L3 appear to be within normal limits; L3-4 broad-based disc bulge with left paracentral disc protrusion mildly effaces the thecal sac with patent bilateral neural foraminal; L4-5 degenerative disc disease with endplate change, moderate facet arthropathy bilaterally and left paracentral foraminal disc protrusion resulting in left neural foraminal narrowing with some close proximity to the left L5 nerves with moderate right neural foraminal narrowing; L5-S1 moderate facet arthropathy and left broad- based paracentral disc protrusion with moderate severe neural foraminal narrowing and pain right neural foramina; L3-4 slight retrolisthesis - Labs Labs: Abnormal Lab Results - Last 24 Hours (Table) 03/17/21 03/18/21 03/18/21 Range/Units 09:40 11:37 16:42 POC Glucose (mg/dL) 203 H 184 H (75-99) mg/dL RICHARD Screen POSITIVE A (NEGATIVE) 03/18/21 03/19/21 Range/Units 21:19 07:11 POC Glucose (mg/dL) 284 H 213 H (75-99) mg/dL RICHARD Screen (NEGATIVE) H & H 03/15/21 Range/Units 23:25 Hgb 12.1 (11.4-16.0) gm/dL Hct 36.5 (34.0-46.0) % Coagulation 03/15/21 Range/Units 23:25 INR 0.9 (<1.2) Result Diagrams: 03/19/21 06:00 03/19/21 06:00 Assessment and Plan Assessment: Assessment: Right lower extremity leg pain Right lower extremity weakness L4-5 degenerative disc disease Right lower extremity leg pain Right lower extremity weakness L3-4 slight retrolisthesis L3-4 disc bulge without stenosis L4-5 facet arthropathy and left paracentral foraminal disc protrusion with bilateral neural foraminal narrowing L5-S1 moderate facet arthropathy and left paracentral disc protrusion with moderate to severe left neural foraminal narrowing History L4-5 laminectomy decompression performed in 2005 Diabetes mellitus Obesity Healing right foot wound being treated by wound care History right lower extremity occlusion History of right common femoral thromboendarterectomy and patch angioplasty as well as right iliac and femoral balloon dilation performed approximately 2 months ago History of hernia repair surgery with postop complication (1) Spondylolisthesis, lumbar region Current Visit: Yes Status: Acute Code(s): M43.16 - SPONDYLOLISTHESIS, LUMBAR REGION SNOMED Code(s): 787490634642341 (2) Lumbar facet arthropathy Current Visit: Yes Status: Acute Code(s): M47.816 - SPONDYLOSIS W/O MYELOPATHY OR RADICULOPATHY, LUMBAR REGION SNOMED Code(s): 926961724 (3) Lumbar degenerative disc disease Current Visit: Yes Status: Acute Code(s): M51.36 - OTHER INTERVERTEBRAL DISC DEGENERATION, LUMBAR REGION SNOMED Code(s): 39140417 (4) Diabetes Current Visit: Yes Status: Acute Code(s): E11.9 - TYPE 2 DIABETES MELLITUS WITHOUT COMPLICATIONS SNOMED Code(s): 18116866 (5) Right leg weakness Current Visit: Yes Status: Acute Code(s): R29.898 - OTH SYMPTOMS AND SIGNS INVOLVING THE MUSCULOSKELETAL SYSTEM SNOMED Code(s): 194517264 (6) Right leg pain Current Visit: Yes Status: Acute Code(s): M79.604 - PAIN IN RIGHT LEG SNOMED Code(s): 287464618 (7) Obesity (BMI 30.0-34.9) Current Visit: Yes Status: Acute Code(s): E66.9 - OBESITY, UNSPECIFIED SNOMED Code(s): 149807119152197 (8) Diabetic foot ulcer Current Visit: Yes Status: Acute Code(s): E11.621 - TYPE 2 DIABETES MELLITUS WITH FOOT ULCER; L97.509 - NON-PRESSURE CHRONIC ULCER OTH PRT UNSP FOOT W UNSP SEVERITY SNOMED Code(s): 011156650 Plan: Plan: 1. Patient has been discussed in detail with Dr. Juan Luis Smith and we have reviewed her lumbar MRI imaging together. Patient was found to have right lower extremity occlusion in December 2020 and underwent right common femoral th romboendarterectomy and patch angioplasty as well as right iliac and femoral balloon dilation performed approximately 2 months ago. Patient states since that time she has had significant weakness with dorsiflexion, plantarflexion, and extensor hallucis longus on the right. She has difficulty ambulation. She states she sustained a fall this past following exacerbation of right lower extremity leg pain which she states radiated up her leg and into her back. She thought she was experiencing radicular symptoms who presented to the hospital for further evaluation at that time. She does admit to pain that radiates both down her leg and up her right lower extremity. She does have a h istory of previous surgical intervention with L4-5 laminectomy decompression performed in 2005. She has worked with pain management previously and underwent injections in 2018 with benefit in her lumbar spine at that time. During this admission she's been seen by vascular surgery and has undergone multiple imaging modalities without significant findings of further occlusion with the right lower extremity. She's been seen and examined by neurology as well. Neurology states patient may have a connective tissue disorder. Lab results that showed elevated RICHARD. Lumbar MRI imaging does show multilevel degenerative changes but appears her neural foraminal compression is greater on the left than the right at multiple levels. Currently she is not experiencing any left lower extremity weakness or radiculopathy. She does continue have significant right lower extremity pain and weakness. It is difficult to determine that her current symptoms in regards to her right lower extremity stemming specifically from her lumbar spine. It is also difficult to determine the exact cause of her signi ficant weakness with dorsiflexion, plantarflexion, and extensor hallucis longus on the right following her recent procedure in December 2020. Given her benefit with treatment with pain management in the past, we feel starting with pain management for further treatment evaluation is a good plan of care. Patient states she does feel this is a good plan of care as well. Consultation will be placed with pain management. We will continue to follow the patient. We are not currently planning for acute surgical intervention in regards to her lumbar spine. We did discuss she should continue with further workup and evaluation as well as treatment with multiple other medical providers in addition to pain management to see if she is able to have improvement of her symptoms. Time with Patient: Greater than 30 (Including obtaining history, physical examin ation, reviewing of imaging, and dictation.) <Karen Smith - Last Filed: 03/19/21 12:45> Physical Examination Osteopathic Statement: *. No significant issues noted on an osteopathic structural exam other than those noted in the History and Physical/Consult. Results - Labs Labs: Abnormal Lab Results - Last 24 Hours (Table) 03/17/21 03/18/21 03/18/21 Range/Units 09:40 16:42 21:19 MCHC (32.0-37.0) g/dL RDW (11.5-14.5) % Creatinine (0.6-1.5) mg/dL BUN/Creatinine Ratio (12.00-20.00) Ratio Glucose (70-110) mg/dL POC Glucose (mg/dL) 184 H 284 H (75-99) mg/dL RICHARD Screen POSITIVE A (NEGATIVE) 03/19/21 03/19/21 03/19/21 Range/Units 06:00 06:00 07:11 MCHC 30.6 L (32.0-37.0) g/dL RDW 14.8 H (11.5-14.5) % Creatinine 0.4 L (0.6-1.5) mg/dL BUN/Creatinine Ratio 28.51 H (12.00-20.00) Ratio Glucose 222 H (70-110) mg/dL POC Glucose (mg/dL) 213 H (75-99) mg/dL RICHARD Screen (NEGATIVE) 03/19/21 Range/Units 11:38 MCHC (32.0-37.0) g/dL RDW (11.5-14.5) % Creatinine (0.6-1.5) mg/dL BUN/Creatinine Ratio (12.00-20.00) Ratio Glucose (70-110) mg/dL POC Glucose (mg/dL) 172 H (75-99) mg/dL RICHARD Screen (NEGATIVE) H & H 03/15/21 03/19/21 Range/Units 23:25 06:00 Hgb 12.1 12.1 (11.4-16.0) gm/dL Hct 36.5 39.5 (34.0-46.0) % Coagulation 03/15/21 Range/Units 23:25 INR 0.9 (<1.2) Result Diagrams: 03/19/21 06:00 03/19/21 06:00 Assessment and Plan Plan: The patient is seen and examined at bedside. I discussed the case with her and review the imaging including an MRI of her lumbar spine. I agree with the above statements. Apparently the patient had been working the day that she came into the hospital because of her significant pain and swelling and issues at her right lower extremity. She underwent her right common femoral thromboendarterectomy and patch angioplasty as described above. Since the time of her issue at work she has been having significant problems with her right leg. Her lumbar MRI shows a number of changes with degenerative disc changes most significant at L4 5. There is left paracentral disc broad-based herniation with left foraminal encroachment which does not correlate well with her right lower extremity symptoms. She does have some far lateral disc protrusion at L4 5 which may be contributing to some degree to her right leg but would not account for most of her right lower extremity symptoms. Further the imaging is not overly severe that we would expect significant weakness. It is difficult to determine the specific nature of her issues at her right lower extremity. I agree with neurology service in terms of the possibility of complex regional neuropathic syndrome and agree with continuing Lyrica or other neuromodulator's for this. It is okay for her to try to mobilize with weightbearing as tolerated on the right lower extremity. I think it is reasonable to have interventional pain management see her to consider the possibility of epidural steroid injection or other management for her leg pain. At this point I do not plan specific surgery as it is too difficult to determine mechanical issue at her lumbar spine to account for her symptoms. We will continue with conservative treatment at this point from a surgical standpoint. She should also continue evaluation with vascular surgery for her recent thrombectomy, as her incident may have created some complex neuropathic pain.
--- NOTE | 2021-03-19 14:12 | P.PAINCN ---
History of Present Illness - Reason for Consult Consult date: 03/19/21 Lumbar back pain, and right lower extremity pain - Chief Complaint Lumbar back pain, and right lower extremity pain - History of Present Illness Ms. You is a 50 -year-old pleasant female consulted for lumbar back pain, and pain radiating to right lower extremity. Patient had a long standing history of chronic low back pain, status post lumbar back surgery in 2005. Patient followed with Dr. Gabo Samaniego until 2019 for her chronic back pain status post she had multiple intervention procedures including epidurals, medial branch blocks, and radiofrequency ablations. She gradually wean her narcotic pain medications. Patient had status post right common femoral thromboendarterectomy with patch angioplasty and balloon dilation of the femoral and iliac segments on December 2020. 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 Patient is currently taking aspirin, and Plavix. Currently right lower extremity DVT ruled out. Currently she is complaining right lower extremity pain more worse than lumbar back pain. Most of her lower extremity pain over the anterior alvares, and dorsum of the foot. Patient describes pain is aching, throbbing, burning constant type of pain. Pain is radiating to right lower extremity sometimes. Patient rated pain levels are 8-9 out of 10 in severity. With the help of medications pain levels are 6-7 out of 10 in severity. Activities making pain worse. Medications, resting, icing helping in relieving patient's pain. Patient pain some days better than others. Because of the pain sometimes patient is feeling lack of sleep, interest, and energy. Denied any side effects with the medications. Denied any bowel or bladder problems at this time. Patient denies any suicidal or homicidal ideations intent or plan. Patient rosy es any auditory or visual hallucinations. Patient denied any red flag symptoms related to pain. Review of Systems All systems: negative Constitutional: Denies chills, Denies fever Eyes: denies blurred vision, denies pain Ears, nose, mouth and throat: Denies headache, Denies sore throat Cardiovascular: Denies chest pain, Denies shortness of breath Respiratory: Denies cough Gastrointestinal: Denies abdominal pain, Denies diarrhea, Denies nausea, Denies vomiting Genitourinary: Denies dysuria, Denies hematuria Musculoskeletal: Reports leg numbness/tingling, Reports low back pain, Reports muscle cramps, Reports myalgias Integumentary: Denies pruritus, Denies rash Neurological: Reports numbness, Reports weakness Psychiatric: Denies anxiety, Denies depression Endocrine: Denies fatigue, Denies weight change Past Medical History Past Medical History: Diabetes Mellitus Additional Past Medical History / Comment(s): bowel obstruction, kidney stones History of Any Multi-Drug Resistant Organisms: MRSA Year Discovered:: 2012 MDRO Source:: stomach mesh Past Surgical History: Back Surgery, Bladder Surgery, Section, Cholecystectomy, Hernia Repair, Hysterectomy, Orthopedic Surgery Additional Past Surgical History / Comment(s): Ablation of lumbar nerve Past Anesthesia/Blood Transfusion Reactions: No Reported Reaction Past Psychological History: No Psychological Hx Reported Smoking Status: Former smoker Past Alcohol Use History: Rare Past Drug Use History: None Reported Medications and Allergies Home Medications Medication Instructions Recorded Confirmed Type Aspirin 81 mg PO DAILY tab 01/09/21 03/16/21 Rx Clopidogrel [Plavix] 75 mg PO DAILY tab 01/09/21 03/16/21 Rx Nicotine 14Mg/24Hr Patch [Habitrol] 1 patch TRANSDERM DAILY patch 01/09/21 03/16/21 Rx Pregabalin [Lyrica] 100 mg PO BID #6 cap 01/09/21 03/16/21 Rx Temazepam [Restoril] 15 mg PO HS PRN #3 cap 01/09/21 03/16/21 Rx lisinopriL [Zestril] 10 mg PO DAILY tab 01/09/21 03/16/21 Rx Cholecalciferol [Vitamin D3 (25 25 mcg PO DAILY 03/16/21 03/16/21 History Mcg = 1000 Iu)] Fluticasone Nasal [place] [Flonase 1 spray EA NOSTRIL DAILY PRN 03/16/21 03/16/21 History Nasal [place]] Insulin Glargine,Hum.rec.anlog See Protocol SQ HS 03/16/21 03/16/21 History [Semglee Pen] Insulin Lispro [humaLOG Kwikpen] See Protocol SQ AC-TID 03/16/21 03/16/21 History Multivitamins, Thera [Multivitamin 1 tab PO DAILY 03/16/21 03/16/21 History (formulary)] Omeprazole 20 mg PO HS 03/16/21 03/16/21 History Allergies Allergy/AdvReac Type Severity Reaction Status Date / Time buprenorphine [From Suboxone] Allergy Swelling Verified 03/16/21 09:55 duloxetine [From Cymbalta] Allergy Confusion Verified 03/16/21 09:55 naloxone [From Suboxone] Allergy Swelling Verified 03/16/21 09:55 NSAIDS (Non-Steroidal Allergy Unknown Verified 03/16/21 09:55 Anti-Inflamma Childhood Physical Exam Vitals: Vital Signs Temp Pulse Resp BP BP Pulse Ox 03/19/21 08:00 98 F 84 18 126/75 92 L 03/19/21 02:04 98.5 F 90 17 135/76 95 03/18/21 22:08 97.8 F 94 19 162/89 95 03/18/21 22:00 90 17 03/18/21 17:44 97.5 F L 90 18 138/81 95 03/18/21 14:00 97.6 F 89 18 107/60 96 Intake and Output 03/18/21 03/19/21 03/19/21 22:59 06:59 14:59 Output Total 400 Balance -400 Output: Urine 400 Other: Voiding Method Bedside Commode # Voids 1 # Bowel Movements 1 - Constitutional General appearance: no acute distress - Respiratory Respiratory: bilateral: CTA - Cardiovascular Rhythm: regular - Neurologic No focal neurological deficits - Musculoskeletal Bilateral lower extremity sensation grossly intact. Dorsalis pedis pulse intact. Right lower extremity mild swelling present compartment the left side. Tenderness over anterior alvares area, tenderness and dorsiflexion of the foot. Unable to perform rest of the lower extremity exam secondary to pain - Psychiatric Psychiatric: A&O x's 3, appropriate affect, intact judgment & insight Lumbar area healed scar positive. Lumbar facet load test positive Multiple trigger points positive over lumbar, and lower thoracic area. SI joint tenderness positive but unable to perform SI joint pain provocation test secondary to pain. Results CBC & Chem 7: 03/19/21 06:00 03/19/21 06:00 Labs: Abnormal Lab Results - Last 24 Hours (Table) 03/17/21 03/18/21 03/18/21 Range/Units 09:40 11:37 16:42 POC Glucose (mg/dL) 203 H 184 H (75-99) mg/dL RICHARD Screen POSITIVE A (NEGATIVE) 03/18/21 03/19/21 Range/Units 21:19 07:11 POC Glucose (mg/dL) 284 H 213 H (75-99) mg/dL RICHARD Screen (NEGATIVE) Comments: MRI of the lumbar spine done on 03/18/2021 showed sign axial images at L3-L4 level showed mild broad disc bulge with left central disc protrusion. Mildly effacing the anterior thecal sac. Patent bilateral neural foraminal. Axial imaging at L4-L5 level showing moderate facet arthropathy bilaterally. There is a left paracentral/foraminal disc protrusion on axial image. There is more moderate right side inferior neural foraminal narrowing due to the broad- based disc bulge. Axial image at L5-S1 level showed mild to moderate facet arthropathy bilaterally. There is a broad-based left paracentral disc protrusion. Spinal canal preserved. There is increased epidural fat at this level. There is moderate to severe left-sided neural foraminal narrowing. Right-sided neural foramina is patent. Paraspinal muscle bulk is maintained Assessment and Plan Assessment: Right lower extremity pain secondary to peripheral vascular disease Lumbar postlaminectomy syndrome Lumbar radiculopathy right-sided Lumbar spondylosis without myelopathy Lumbar neural foramina narrowing. Myofascial pain syndrome, and chronic pain syndrome Plan: 1 Diagnoses, prognosis, and multiple treatment options including but not limited to physical therapy, interventional therapy, adjunct medication therapy, narcotic medication, and surgical options were discussed with the patient. And all questions were answered to the patient's satisfaction. #2 Patient was thoroughly discussed regarding the medication side effects, complications associated with narcotic use. Patient recommended do not drive while on narcotic medications, any other sedative medications, and illicit drugs including marijuana. Patient clearly understood. #3 Patient was counseled on importance of regular exercise. #4 consultation: Neurosurgical consultation for evaluation of her lumbar spine for any intervention, patient also recommended to continue physical therapy #5 interventional procedures: No interventional procedures at this time secondary to her recent vascular surgery status post on Plavix, and aspirin #6 medications #1 start MS Contin 15 mg by mouth every 12 hours, increase to every 8 hours if tolerated #2 Lyrica increased from 100 mg 150 mg by mouth every 12 hours #3 Silver 7.5/325 by mouth every 6 hours as needed #4 Dilaudid 0.5 mg IV every 8 hours as needed oral medications are not helpful only #4 naloxone 4 mg intranasal as needed for respiratory depression Medication side effects, complications, long-term consequences discussed with the patient. Patient recommended to follow up with the pain clinic if needed any help in future after discharge from the hospital. Time with Patient: Greater than 30 PQRS Measure Charge Sheet - Pain Location Right Lower Leg Non-Pharmacological Interventions: Darkened Room, Inactivity, Physical Therapy Pharmacological Interventions: PRN Medication Pain Comment: pt. leg elevated. PQRS Narrative: Smoking Status Current every day smoker Do You Want the Pneumonia No Vaccine AT THIS TIME? Blood Pressure [Left Arm] 126/75 Blood Pressure [Right Arm] 162/89 Blood Pressure 166/4 Pain Intensity [Right Lower 8 Leg] Pain Intensity 6 Pain Scale Used Numeric (1 - 10) Scale Used Numeric (1 - 10) Home Medications: Ambulatory Orders Aspirin 81 mg PO DAILY tab 01/09/21 Clopidogrel [Plavix] 75 mg PO DAILY tab 01/09/21 Nicotine 14Mg/24Hr Patch [Habitrol] 1 patch TRANSDERM DAILY patch 01/09/21 Pregabalin [Lyrica] 100 mg PO BID #6 cap 01/09/21 Temazepam [Restoril] 15 mg PO HS PRN #3 cap 01/09/21 lisinopriL [Zestril] 10 mg PO DAILY tab 01/09/21 Cholecalciferol [Vitamin D3 (25 Mcg = 1000 Iu)] 25 mcg PO DAILY 03/16/21 Fluticasone Nasal [place] [Flonase Nasal [place]] 1 spray EA NOSTRIL DAILY PRN 03/16/21 Insulin Glargine,Hum.rec.anlog [Semglee Pen] See Protocol SQ HS 03/16/21 Insulin Lispro [humaLOG Kwikpen] See Protocol SQ AC-TID 03/16/21 Multivitamins, Thera [Multivitamin (formulary)] 1 tab PO DAILY 03/16/21 Omeprazole 20 mg PO HS 03/16/21
[2021-03-19] MEDS: HYDROmorphone 0.5 MG/0.5 ML SYRINGE IVP PRN (15:41)
--- NOTE | 2021-03-19 16:23 | P.PN ---
Subjective Progress Note Date: 03/19/21 The patient is seen at bedside and she feels about the same today compared to yesterday. Objective - Vital Signs Vital signs: Vital Signs Temp 98 F 03/19/21 08:00 Pulse 84 03/19/21 08:00 Resp 18 03/19/21 08:00 BP 126/75 03/19/21 08:00 Pulse Ox 92 L 03/19/21 08:00 Intake & Output 03/18/21 03/19/21 03/19/21 18:59 06:59 18:59 Intake Total 480 Output Total 400 Balance 80 Intake: Oral 480 Output: Urine 400 Other: Voiding Method Bedside Commode Bedside Commode # Voids 1 # Bowel Movements 1 - Exam Patient is alert awake oriented to time place and person. Speech and language functions are normal. Attention, concentration and fund of knowledge is adequate. On cranial nerve examination, pupils are round and reacting to light, visual pimentel are full on confrontation, extraocular muscles are intact with no nystagmus. Face is symmetric, tongue protrudes to the midline. Palatal elevation and sensation normal, hearing and shoulder shrug normal, facial sensation normal. Shoulder shrug normal. Motor: Gait is deferred. Bilateral upper extremity strength is 5/5. Her right lower extremity there is limitation in assessing strength because of pain. She has at least 3-4- over right hip, has right knee extension above gravity. Right ankle dorsiflexion is 2 while plantarflexion is 4. Left hip is 4+ to 5- and lef t knee is 4+ and left ankle is 5/5. According to patient left side is old findings. Tone and bulk of muscles normal. Sensory to touch is normal to touch throughout. Cerebellar function showed no ataxia for [id number] testing. No dysdiadochokinesia. Deep tendon reflexes are 2+ throughout bilateral patellar while ankles are 1+ bilaterally. Plantars are mute bilaterally. WORK-UP: ESR: 14 Her last hemoglobin A1c 11.8 on 12/30/2020. Serum Immunofixation: No monoclonal paraprotein. B12 440, folate 12.60, TSH 2.49, ESR 14, IgG 743, IgM 89.2 normal. 2-D echo revealed mild concentric LVH. EF is between 55-60%. Left atrium is moderately dilated. Duplex of right lower extremity: Negative for DVT. Patient had MRI L-spine today and it is reported as: 2 level degenerative changes. Increased left-sided encroachment noted in the lower lumbar spine. In the body of the report it is reported that the patient has moderate facet after breathy bilaterally over the L4-L5 with the left for maternal disc protrusion. There is also close proximity in the central left L5 nerves. There is more moderate right sided inferior neuroforaminal narrowing over the L4-L5. Over the L5-S1 there is mild to moderate facet arthropathy and there is moderate to severe left-sided neural foraminal narrowing. - Labs CBC & Chem 7: 03/19/21 06:00 03/19/21 06:00 Labs: Abnormal Lab Results - Last 24 Hours (Table) 03/17/21 03/18/21 03/18/21 Range/Units 09:40 16:42 21:19 MCHC (32.0-37.0) g/dL RDW (11.5-14.5) % Creatinine (0.6-1.5) mg/dL BUN/Creatinine Ratio (.00-20.00) Ratio Glucose (70-110) mg/dL POC Glucose (mg/dL) 184 H 284 H (75-99) mg/dL RICHARD Screen POSITIVE A (NEGATIVE) 03/19/21 03/19/21 03/19/21 Range/Units 06:00 06:00 07:11 MCHC 30.6 L (32.0-37.0) g/dL RDW 14.8 H (11.5-14.5) % Creatinine 0.4 L (0.6-1.5) mg/dL BUN/Creatinine Ratio 28.51 H (12.00-20.00) Ratio Glucose 222 H (70-110) mg/dL POC Glucose (mg/dL) 213 H (75-99) mg/dL RICHARD Screen (NEGATIVE) 03/19/21 Range/Units 11:38 MCHC (32.0-37.0) g/dL RDW (11.5-14.5) % Creatinine (0.6-1.5) mg/dL BUN/Creatinine Ratio (12.00-20.00) Ratio Glucose (70-110) mg/dL POC Glucose (mg/dL) 172 H (75-99) mg/dL RICHARD Screen (NEGATIVE) Assessment and Plan Assessment: * Right leg pain with edema, discoloration: Unkown exact etiology. Possible connection tissue disease (has positive RCIHARD) vs ?peripheral vascular disease/arterial disease. I am not convinced it is due to lumbosacaral radiculopathy vs plexopathy vs neuropathy. * Lumbosacral radiculopathy * Lumboscaral spondylosis (that is moderate to severe over L5-S1 over the left and moderate over the L4-L5 over the right). Patient states has has known history of this in past. * Diabetes poorly controlled (Last hemoglobin A1c 11.8 on 12/30/2020) * Hypertension * Peripheral vascular disease, status post stenting in the right leg on 01/04/2021 ( Plan: * Patient had MRI L-spine today and it is reported as: 2 level degenerative changes. Increased left-sided encroachment noted in the lower lumbar spine. In the body of the report it is reported that the patient has moderate facet after breathy bilaterally over the L4-L5 with the left for maternal disc protrusion. There is also close proximity in the central left L5 nerves. There is more moderate right sided inferior neuroforaminal narrowing over the L4-L5. Over the L5-S1 there is mild to moderate facet arthropathy and there is moderate to severe left-sided neural foraminal narrowing. * Agree with trying Lyrica 100 mg twice a day. If needed, may increase the dose to 150 mg twice a day. * Orthopedic team is consulted by primary team. I spoke with Dr. Smith and he agree and does not feels it is related to Lumbar radiculopathy vs plexopathy or neuropathy. I spoke with vascular team and they do not feel it is PAD/PVD. * Optimize control of diabetes. * Recommend EMG and nerve conduction study of right lower extremity as an outpatient to evaluate further. * B6 still pending per Dr. Boss's request. * Pending anti-dsDNA. * Recommend patient to follow-up with [facility] Worker. * Pt and OT are consulted. * Will defer the rest of medical management to the primary team. * Upon discharge, recommend patient to follow-up with Neurologist within 1-2 weeks. The plan is discussed with the patient, Orthopedic surgery team and vascular surgery team (nurse practioner). Rick Weller MD Neuro-Hospitalist Time with Patient: Less than 30
[2021-03-19] MEDS: MORPHINE SULFATE ER 15 MG TABLET PO SCH ×2 (16:25→22:02)
[2021-03-19 16:43] LABS: Glucose,Whole Blood 197 mg/dL (75-99)
[2021-03-19 18:58] LABS: DNA Double-Stranded NEGATIVE (NEGATIVE)
--- NOTE | 2021-03-19 19:39 | P.PN ---
Subjective This is a pleasant 50 years old female with past medical history of diabetes mellitus. Patient presents because of right leg pain and swelling. Patient states that on 01/04/2021 patient had the stent placed in the right leg by Dr. Byrne, 16 she's been using a cane Rosalind patient noticed that her right leg strap to swollen, and was told about it by her boyfriend as well. And next day starts hurting with pain in the inner thigh radiating to the groin and radiating to the back and give her some back spasm, she states that her pain in her leg is severe tenderness/10 and the Dilaudid 1 mg barely take the age of 7 down to 8/10. It feels like tight and hot. Also she feels pain in her toes recommended to the ankle feel like valdemar pain. She has a small wound on the lateral side of the ankle about 1 inch with no obvious surrounding cellulitis but there is mild purulent discharge and the dressing is in place. Other than that she denies any chest pain or dyspnea or coughing. No headache or weakness or dizziness or numbness. No abdominal pain or vomiting or diarrhea. No urinary complaints. She used to smoke and quit about one month ago. Call or illicit tracts. Vital otherwise she is hemodynamically stable. WBC is normal. INR 0.9, d-dimer -0.48. Glucose 187 and 188. Troponin is elevated 1 time, it was normal 0.01 and then elevated 0.04 before it was back to normal at 0.03. BMP, liver enzymes are unremarkable. Magnesium 1.6. Lactic acid is normal at 1.4. Venous Doppler is negative for DVT in both legs. Echocardiogram showed ejection fraction of 55% 6%. In the emergency room patient was started on Dilaudid and normal saline at 130 milliliters per hour Elevated Guard and vascular surgery were consulted, as per staff both surfaces are aware of the consult 03/17/2021 Patient is clinically similar to yesterday still have difficulty moving her for right lower extremity because of severe pain when she tries to move it, it looks only slightly more swollen compared to the left side, no apparent deformity or discoloration. No apparent evidence of trauma. Vascular surgery team the don't believe it's due to blood vessel abnormality. I discussed the case with neurology service differential including radiculopathy versus plexopathy versus neuropathy. Neurologist recommended an MRI of the lumbar spine and if that's negative then patient would need nervous study as an outpatient. Because patient is going for MRI we will order fluids for 18 hours, Ativan as needed. Also we will order PT/OT to see the patient Patient states that her right foot lateral wound is a small and is healing. Continue with wound care and wound consult 03/18/2021 Patient with right leg weakness and pain. No significant improvement, neurology team on the case. Labs reviewed with no significant abnormality. Pending workup including immunofixation, vitamin B6 and [id number] DNA. Orthopedic team were consulted for her abnormal MRI with degenerative disc disease with spondylitic changes but no acute fracture. Physical therapy and occupational therapy evaluated the patient and recommended home as patient can move on her on with little assistance, please refer to their notes. Vascular surgery are clear and the patient for discharge most likely. Objective - Vital Signs Vital signs: Vital Signs Temp 98.5 F 03/18/21 07:34 Pulse 85 03/18/21 07:34 Resp 20 03/18/21 07:45 BP 143/77 03/18/21 07:34 Pulse Ox 94 L 03/18/21 07:34 Intake & Output 03/17/21 03/18/21 03/18/21 18:59 06:59 18:59 Intake Total 250 180 Output Total 450 Balance -200 180 Intake: Oral 250 180 Output: Urine 450 Other: Voiding Method Bedside Commode Bedside Commode Bedside Commode # Voids 3 # Bowel Movements 1 - Exam GENERAL: The patient is alert and oriented x3, not in any acute distress. Well developed, well nourished. HEENT: Pupils are round and equally reacting to light. EOMI. No scleral icterus. No conjunctival pallor. Normocephalic, atraumatic. No pharyngeal erythema. No thyromegaly. CARDIOVASCULAR: S1 and S2 present. No murmurs, rubs, or gallops. PULMONARY: Chest is clear to auscultation, no wheezing or crackles. ABDOMEN: Soft, nontender, nondistended, normoactive bowel sounds. No palpable organomegaly. MUSCULOSKELETAL: No joint swelling or deformity. -EXTREMITIES: No cyanosis, clubbing, or pedal edema. Right leg is slightly swollen and painful for the patient, decreased movement in the toes and knee due to pain, no discoloration, no deformity or redness or blisters. Also patient has a small wound about 1 inch in diameter on the lateral side of the ankle with no significant surrounding cellulitis. Examination and movement is limited by pain and tenderness NEUROLOGICAL: Gross neurological examination did not reveal any focal deficits. SKIN: No rashes. No petechiae - Labs CBC & Chem 7: 03/19/21 06:00 03/19/21 06:00 Labs: Abnormal Lab Results - Last 24 Hours (Table) 03/17/21 03/17/21 03/17/21 Range/Units 11:25 16:49 22:32 POC Glucose (mg/dL) 158 H 179 H 243 H (75-99) mg/dL 03/18/21 Range/Units 07:00 POC Glucose (mg/dL) 177 H (75-99) mg/dL Assessment and Plan Assessment: Right leg pain and swelling, rule out vascular versus neurological causes. Movement restricted due to pain. Mildly elevated troponin, acute coronary syndrome has been ruled out right lateral ankle wound, with no obvious surrounding cellulitis Diabetes mellitus Previous nicotine dependence total one month ago Obesity with BMI of 53.1 Plan: this is a pleasant 50 years old female who presents with right leg pain and swelling. Continue with pain management continue with aspirin and Plavix , we are going to add heparin subcutaneously Vascular surgery already consulted, they don't believe it's the main cause of the patient's symptoms Consult neurology service who recommended MRI of the lumbar spine Elevated Guard cleared the patient from their perspective with recommendation for outpatient stress test 1 consult for her right foot wound Labs and medication were reviewed.. Continue same treatment. Continue with symptomatic treatment. Resume home medication. Monitor lytes and vitals. DVT and GI prophylaxis. Further recommendations depends on the clinical course of the patient DVT prophylaxis: Subcutaneous heparin GI Prophylaxis: Pepcid PT/OT: Pending, deferred Prognosis is guarded
--- NOTE | 2021-03-19 20:00 | P.PN ---
Subjective This is a pleasant 50 years old female with past medical history of diabetes mellitus. Patient presents because of right leg pain and swelling. Patient states that on 01/04/2021 patient had the stent placed in the right leg by Dr. Samson, 16 she's been using a cane Rosalind patient noticed that her right leg strap to swollen, and was told about it by her boyfriend as well. And next day starts hurting with pain in the inner thigh radiating to the groin and radiating to the back and give her some back spasm, she states that her pain in her leg is severe tenderness/10 and the Dilaudid 1 mg barely take the age of 7 down to 8/10. It feels like tight and hot. Also she feels pain in her toes recommended to the ankle feel like valdemar pain. She has a small wound on the lateral side of the ankle about 1 inch with no obvious surrounding cellulitis but there is mild purulent discharge and the dressing is in place. Other than that she denies any chest pain or dyspnea or coughing. No headache or weakness or dizziness or numbness. No abdominal pain or vomiting or diarrhea. No urinary complaints. She used to smoke and quit about one month ago. Call or illicit tracts. Vital otherwise she is hemodynamically stable. WBC is normal. INR 0.9, d-dimer -0.48. Glucose 187 and 188. Troponin is elevated 1 time, it was normal 0.01 and then elevated 0.04 before it was back to normal at 0.03. BMP, liver enzymes are unremarkable. Magnesium 1.6. Lactic acid is normal at 1.4. Venous Doppler is negative for DVT in both legs. Echocardiogram showed ejection fraction of 55% 6%. In the emergency room patient was started on Dilaudid and normal saline at 130 milliliters per hour Clinical Law Professor and vascular surgery were consulted, as per staff both surfaces are aware of the consult 03/17/2021 Patient is clinically similar to yesterday still have difficulty moving her for right lower extremity because of severe pain when she tries to move it, it looks only slightly more swollen compared to the left side, no apparent deformity or discoloration. No apparent evidence of trauma. Vascular surgery team the don't believe it's due to blood vessel abnormality. I discussed the case with neurology service differential including radiculopathy versus plexopathy versus neuropathy. Neurologist recommended an MRI of the lumbar spine and if that's negative then patient would need nervous study as an outpatient. Because patient is going for MRI we will order fluids for 18 hours, Ativan as needed. Also we will order PT/OT to see the patient Patient states that her right foot lateral wound is a small and is healing. Continue with wound care and wound consult 03/18/2021 Patient with right leg weakness and pain. No significant improvement, neurology team on the case. Labs reviewed with no significant abnormality. Pending workup including immunofixation, vitamin B6 and [id number] DNA. Orthopedic team were consulted for her abnormal MRI with degenerative disc disease with spondylitic changes but no acute fracture. Physical therapy and occupational therapy evaluated the patient and recommended home as patient can move on her on with little assistance, please refer to their notes. Vascular surgery are clear and the patient for discharge most likely. 03/19/2021 Patient still have right lower extremity pain with limitation in movement could be due to pain affect. Unsure if there is also some elements of weakness as exa mination is restricted by the patient pain. Several consultants on the case including vascular surgery, neurology and orthopedic team, there is no consensus about because of the patient's symptoms However the patient told me today that these haven't to her before for example when she was at age 40s and in 2019 and each time she got pain injection in her back which resulted weeks her symptoms, she says that her injection precipitated 2019 hope her a lot and she did not have recurrent symptoms until about 2 months ago when vascular causes were suspected and she have the procedure with Dr. Samson and now it recurs again pt supposed to have a follow up appointment with dr samson tomorrow , but may come to see her while she is in the hospital if possible pain management was obtained today and they switched her to MS contine 15 mg BID and norco 7.5 mg prn . also she is placed on lyrica which she thinks it helping her even we called consult to see if he can help her with inpatient rehab but she does not qualify possible discharge in 24 to 48 hours if she remains stable and/or improving Objective - Vital Signs Vital signs: Vital Signs Temp 98 F 03/19/21 08:00 Pulse 84 03/19/21 08:00 Resp 18 03/19/21 08:00 BP 126/75 03/19/21 08:00 Pulse Ox 92 L 03/19/21 08:00 Intake & Output 03/18/21 03/19/21 03/19/21 18:59 06:59 18:59 Intake Total 480 Output Total 400 Balance 80 Intake: Oral 480 Output: Urine 400 Other: Voiding Method Bedside Commode Bedside Commode # Voids 1 # Bowel Movements 1 - Exam GENERAL: The patient is alert and oriented x3, not in any acute distress. Well developed, well nourished. HEENT: Pupils are round and equally reacting to light. EOMI. No scleral icterus. No conjunctival pallor. Normocephalic, atraumatic. No pharyngeal erythema. No thyromegaly. CARDIOVASCULAR: S1 and S2 present. No murmurs, rubs, or gallops. PULMONARY: Chest is clear to auscultation, no wheezing or crackles. ABDOMEN: Soft, nontender, nondistended, normoactive bowel sounds. No palpable organomegaly. MUSCULOSKELETAL: No joint swelling or deformity. -EXTREMITIES: No cyanosis, clubbing, or pedal edema. Right leg is slightly swollen and painful for the patient, decreased movement in the toes and knee due to pain, no discoloration, no deformity or redness or blisters. Also patient has a small wound about 1 inch in diameter on the lateral side of the ankle with no significant surrounding cellulitis. Examination and movement is limited by pain and tenderness NEUROLOGICAL: Gross neurological examination did not reveal any focal deficits. SKIN: No rashes. No petechiae - Labs CBC & Chem 7: 03/19/21 06:00 03/19/21 06:00 Labs: Abnormal Lab Results - Last 24 Hours (Table) 03/17/21 03/18/21 03/18/21 Range/Units 09:40 11:37 16:42 POC Glucose (mg/dL) 203 H 184 H (75-99) mg/dL RICHARD Screen POSITIVE A (NEGATIVE) 03/18/21 03/19/21 Range/Units 21:19 07:11 POC Glucose (mg/dL) 284 H 213 H (75-99) mg/dL RICHARD Screen (NEGATIVE) Assessment and Plan Assessment: Right leg pain and swelling, rule out vascular versus neurological causes. Movement restricted due to pain. Mildly elevated troponin, acute coronary syndrome has been ruled out right lateral ankle wound, with no obvious surrounding cellulitis Diabetes mellitus Previous nicotine dependence total one month ago Obesity with BMI of 53.1 Plan: this is a pleasant 50 years old female who presents with right leg pain and swelling. Continue with pain management who saw the The patient and recommended more pain medication with MS Contin, Bergholz and Lyrica continue with aspirin and Plavix , we are going to add heparin subcutaneously . Vascular surgery already consulted, they don't believe it's the main cause of the patient's symptoms Consult neurology service who recommended outpatient follow-up EMG and nerve conduction study Clinical Law Professor cleared the patient from their perspective with recommendation for outpatient stress test Labs and medication were reviewed.. Continue same treatment. Continue with symptomatic treatment. Resume home medication. Monitor lytes and vitals. DVT and GI prophylaxis. Further recommendations depends on the clinical course of the patient DVT prophylaxis: Subcutaneous heparin GI Prophylaxis: Pepcid PT/OT: home Prognosis is guarded possible discharge once cleared by all consultants for discharge
[2021-03-19] MEDS: PREGABALIN 75 MG CAP PO SCH (20:05)
[2021-03-19 21:44] LABS: Glucose,Whole Blood 209 mg/dL (75-99)
[2021-03-19] MEDS: TEMAZEPAM 15 MG CAP PO PRN (22:02)
[2021-03-20 01:57] VITALS: RESP 16
[2021-03-20] MEDS: HYDROmorphone 0.5 MG/0.5 ML SYRINGE IVP PRN (04:23)
[2021-03-20] MEDS ORDERED: MELATONIN 5 MG TABLET PO PRN (07:13)
[2021-03-20 07:31] LABS: Glucose,Whole Blood 224 mg/dL (75-99)
[2021-03-20] MEDS: INSULIN ASPART (NovoLOG) 100 UNIT/ML VIAL SQ SCH ×3 (07:47→17:00)
[2021-03-20] MEDS: MORPHINE SULFATE ER 15 MG TABLET PO SCH (07:47)
[2021-03-20] MEDS: HEPARIN SODIUM,PORCINE/PF 5,000 UNIT/0.5 ML SYRINGE SQ SCH ×2 (07:47→17:00)
[2021-03-20] MEDS: CLOPIDOGREL 75 MG TAB PO SCH (07:47)
[2021-03-20] MEDS: CHOLECALCIFEROL 25 MCG (1000 IU) TABLET PO SCH (07:48)
[2021-03-20] MEDS: PREGABALIN 75 MG CAP PO SCH (07:48)
[2021-03-20] MEDS: lisinopriL 10 MG TAB PO SCH (07:48)
[2021-03-20] MEDS: ATORVASTATIN 40 MG TAB PO SCH (07:48)
[2021-03-20] MEDS: NICOTINE 14MG/24HR PATCH TRANSDERM SCH (07:48)
[2021-03-20] MEDS: ASPIRIN 81 MG PO SCH (07:48)
[2021-03-20 07:53] VITALS: PULSE 95
[2021-03-20] MEDS: PREGABALIN 100 MG CAP PO SCH (07:54)
[2021-03-20] MEDS: HYDROmorphone 1 MG/ML 1 ML SYRINGE IVP PRN (08:37)
--- NOTE | 2021-03-20 09:48 | P.PN ---
Subjective Progress Note Date: 03/20/21 Principal diagnosis: Right leg pain The patient was seen and examined today lying in bed. States she still having some pain down the right lower extremity. Having some issues with the flexion and dorsiflexion as well as ambulating. Pain management had seen patient yesterday and plan is to treat her with oral pain medications, physical therapy and follow up outpatient. Orthopedics as well as can follow with patient however unfortunately right now she's been on Plavix for her right lower extremity stent therefore the that would need to be held for any type of procedures. This and swelling has improved to her lower extremity. She's been afebrile. Objective - Vital Signs Vital signs: Vital Signs Temp 98.1 F 03/20/21 07:52 Pulse 95 03/20/21 07:52 Resp 16 03/20/21 07:52 BP 122/71 03/20/21 07:52 Pulse Ox 90 L 03/20/21 07:52 Intake & Output 03/19/21 03/20/21 03/20/21 18:59 06:59 18:59 Intake Total 600 Balance 600 Intake: Oral 600 Other: # Voids 4 1 - Exam GENERAL: Patient is alert and oriented 3. No acute distress. LUNGS: Clear to auscultation bilaterally, no wheezes, rales or rhonchi. HEART: Regular rate and rhythm without murmurs, rubs or gallops. ABDOMEN: Soft, nontender, no masses, no rebound, no guarding. EXTREMITIES: Right lower extremity palpable dorsalis pedis pulse with good capillary refill. Her leg is warm to the touch. She has a wound on her right lateral foot. She is able to wiggle her toes, she does have some decreased range of motion with flexion and dorsiflexion. NEUROLOGICAL: Normal motor function, normal sensation. - Labs CBC & Chem 7: 03/19/21 06:00 03/19/21 06:00 Labs: Abnormal Lab Results - Last 24 Hours (Table) 03/19/21 03/19/21 03/19/21 Range/Units 06:00 06:00 11:38 MCHC 30.6 L (32.0-37.0) g/dL RDW 14.8 H (11.5-14.5) % Creatinine 0.4 L (0.6-1.5) mg/dL BUN/Creatinine Ratio 28.51 H (12.00-20.00) Ratio Glucose 222 H (70-110) mg/dL POC Glucose (mg/dL) 172 H (75-99) mg/dL 03/19/21 03/19/21 03/20/21 Range/Units 16:41 21:41 07:29 MCHC (32.0-37.0) g/dL RDW (11.5-14.5) % Creatinine (0.6-1.5) mg/dL BUN/Creatinine Ratio (12.00-20.00) Ratio Glucose (70-110) mg/dL POC Glucose (mg/dL) 197 H 209 H 224 H (75-99) mg/dL Assessment and Plan Assessment: 1. Right lower extremity pain, suspect radicular type pain due to lumbar disc disease. Also need to consider component of nerve pain related to revascularization and lumbar disc disease. 2. History of of right lower extremity occlusive disease status post right common femoral thromboendarterectomy with patch angioplasty and balloon dilation of the femoral and iliac segments 3. History of tobacco use Plan: 1. Recommend continued follow-up with orthopedics and pain management. Discussed with patient some of the swelling and redness is likely related to revascularization and increase blood flow to an area that had been ischemic. Patient may also have some nerve pain related to this same. 2. Continue with dressing changes per recommendations from wound care 3. Recommend physical therapy 4. There is no indication for any vascular surgical intervention. Patient is cleared from vascular surgery for discharge once otherwise medically stable. She is to follow-up as scheduled with Dr. Byrne. The impression and plan of care has been dictated as directed. Dr. Byrne I performed a history and examination of this patient, discussed the same with the dictator. I agree with the dictator's note ,documented as a scribe. Any additional findings or plans will be noted.
--- NOTE | 2021-03-20 09:52 | P.PN ---
<Josh Darby - Last Filed: 03/20/21 09:51> Progress Note - Text Progress Note Date: 03/20/21 Orthopedic spine: History of present illness: Patient is a very pleasant 50-year-old female who is seen and examined at bedside for follow-up evaluation in regards to her lumbar spine. Patient states on 12/29/2020 she began to have pain in her right lower extremity. She felt this was a regards to sciatic pain she was experiencing previously. She presented to [facility] for further evaluation. She states she was found to have occlusion at her right lower extremity and underwent a right common femoral thromboendarterectomy and patch angioplasty as well as right iliac and femoral balloon dilation approximately 2 months ago. She states following the procedure she has had significant weakness with right lower extremity. She states she has difficulty with dorsiflexion, plantarflexion, and extensor hallucis longus on the right. She is also been experiencing some swelling, erythema, and pain in the right lower extremity. She does have some erythema in the toes on the right today. She does have a wound over the right lateral portion of the foot and has been treated by wound care. This wound is improving. She states she does have some pain that starts in her foot and radiates all the way up her leg and into her back. Occasionally she has some pain that radiates down the right lower extremity as well. She continues to be seen by neurology and has undergone extensive evaluation plus far. She has had lumbar MRI which was reviewed yesterday. She states she has been seen by vascular surgery again this morning without any new significant findings in regards to blockage for the right lower extremity. Patient states from a vascular standpoint she is cleared. She denies any left lower extremity weakness or radiculopathy bilaterally. She states she sustained a fall this previous , 03/14/2021, and presented to the hospital on Thursday for further evaluation. At that time she did have significant pain radiated up her leg and through her paraspinal muscles of the lumbar and thoracic spine. She's been in the hospital since that time. Since being seen and examined yesterday, she has been seen by pain management. The patient is unable to proceed forward with injections as the patient is currently on anticoagulation following her recent procedure with vascular surgery. She is planning to follow with pain management in the outpatient setting. She states vascular surgery states she should remain on anticoagulation for at least one more month. Patient has a history of previous laminectomy decompression at L4-5 performed in 2006. She states she underwent injections in 2018 with benefit. She has not had recent injections regards to her lumbar spine. She states her pain medication was adjusted yesterday she is currently receiving MS Contin. Since that time her pain is much better improved. She feels she is ready for discharge today and is looking forward to discharge home. She has a history of diabetes mellitus and obesity. Patient does admit to difficulty with previous surgical interventions and has had complication with hernia repair surgery in the past. Physical exam: Patient is awake, alert, and oriented 3 Vital signs stable Good chest excursion with deep inspiration and expiration Abdomen soft nontender Examination of lumbar spine reveals skin is intact with no abrasions, lacerations, or bruises; no erythema, purulence or signs of infection Evidence of a small well-healed incision at the lumbar spine Dorsiflexion, plantarflexion, and extensor hallucis longus positive sustained on the left Lower extremity strength 5/5 bilaterally on the left Patient is able to perform active range of motion with hip flexion and knee extension on the right Patient has significant DIFFICULTY performing dorsiflexion, plantarflexion, and extensor hallucis longus on the right Patellar reflex 2+ on the left Plantar reflex 0+ on the right No lower extremity hyperreflexia bilaterally Straight leg test negative bilateral lower extremities Negative Lasegue's test bilaterally No signs or symptoms of DVT; no calf pain No pain with internal and external rotation of the hips bilaterally Neurovascularly intact Evidence of dressing intact over the right foot for wound which is currently being treated by wound care Some erythema over the toes of the right foot No significant swelling or erythema over the left lower extremity Pertinent studies: MRI lumbar spine taken on 03/18/2021: T12-L3 appear to be within normal limits; L3-4 broad-based disc bulge with left paracentral disc protrusion mildly effaces the thecal sac with patent bilateral neural foraminal; L4-5 degenerative disc disease with endplate change, moderate facet arthropathy bilaterally and left paracentral foraminal disc protrusion resulting in left neural foraminal narrowing with some close proximity to the left L5 nerves with moderate right neural foraminal narrowing; L5-S1 moderate facet arthropathy and left broad- based paracentral disc protrusion with moderate severe neural foraminal narrowing and pain right neural foramina; L3-4 slight retrolisthesis Assessment: Right lower extremity leg pain Right lower extremity weakness L4-5 degenerative disc disease Right lower extremity leg pain Right lower extremity weakness L3-4 slight retrolisthesis L3-4 disc bulge without stenosis L4-5 facet arthropathy and left paracentral foraminal disc protrusion with bilateral neural foraminal narrowing L5-S1 moderate facet arthropathy and left paracentral disc protrusion with moderate to severe left neural foraminal narrowing History L4-5 laminectomy decompression performed in 2005 Diabetes mellitus Obesity Healing right foot wound being treated by wound care History right lower extremity occlusion History of right common femoral thromboendarterectomy and patch angioplasty as well as right iliac and femoral balloon dilation performed approximately 2 m onths ago History of hernia repair surgery with postop complication Plan: 1. Patient has been discussed in detail with Dr. Juan Luis Smith and we have reviewed her lumbar MRI imaging together. Patient was seen and examined by Dr. Juan Luis Smith at the bedside yesterday as well. Patient was found to have right lower extremity occlusion in December 2020 and underwent right common femoral thromboendarterectomy and patch angioplasty as well as right iliac and femoral balloon dilation performed approximately 2 months ago. Patient states since that time she has had significant weakness with dorsiflexion, plantarflexion, and extensor hallucis longus on the right. She has difficulty ambulation. She states she sustained a fall this past following exacerbation of right l ower extremity leg pain which she states radiated up her leg and into her back. She thought she was experiencing radicular symptoms who presented to the hospital for further evaluation at that time. She does admit to pain that radiates both down her leg and up her right lower extremity. She does have a history of previous surgical intervention with L4-5 laminectomy decompression performed in 2005. She has worked with pain management previously and underwent injections in 2018 with benefit in her lumbar spine at that time. During this admission she's been seen by vascular surgery evaluated multiple times in regards to her right lower extremity. She was seen and examined this morning in stage cleared by vascular surgery. There has not been any further occlusion found in the right lower extremity. Vascular surgery is not currently planning for further testing during her admission. She is planning for EMG testing following discharge. She's been seen and examined by neurology as well. Neurology states patient may have a connective tissue disorder. Lab results that showed elevated RICHARD. Lumbar MRI imaging does show multilevel degenerative changes but appears her neural foraminal compression is greater on the left than the right at multiple levels. Currently she is not experiencing any left lower extremity weakness or radiculopathy. She does continue have significant right lower extremity pain and weakness. It is difficult to determine that her current symptoms in regards to her right lower extremity stemming specifically from her lumbar spine. It is also difficult to determine the exact cause of her significant weakness with dorsiflexion, plantarflexion, and extensor hallucis longus on the right following her recent procedure in December 2020. Patient has been discussed in detail with neurology also feels collectively that the patient's symptoms do not correlate well with a radiculopathy from her lumbar spine. We are not currently planning for any acute surgical intervention in regards to her lumbar spine. Patient states she would like to try to avoid all surgical intervention. She does feel she's had better control of her pain after her medication has been changed to MS Contin. She feel she would be ready for discharge home today. She'll plan to follow with pain management in the outpatient setting for further evaluation and discuss further treatment options including the possibility of injections once she is able to discontinue her anticoagulation medication. At this time, patient is clear for discharge from orthopedic spine standpoint.Patient may follow-up with Josh Darby PA-C or Dr. Juan Luis Smith at [facility] in 4 weeks following discharge. 2. Patient will continue be seen and examined by multiple other medical providers during her admission <Karen Smith - Last Filed: 03/21/21 08:34> Progress Note - Text I have reviewed the imaging again and discuss the case with neurology. The patient had does have some changes at her lumbar spine some diffuse disc protrusion at L4 5 with some foraminal stenosis. Her lower extremity symptoms may have some component of radiculopathy however I do not think this is her primary issue in her lower extremity symptoms. Her symptoms do not correlate well with the changes that we see at L4 5 and does not seem to be a compressive neurologic issue. I do not plan acute surgical intervention at this point. I think should continue evaluation and treatment with medication and conservative care as well as vascular management status post acute thrombectomy. She is on blood thinners and will not be able to undergo interventional pain management in the short-term but this may be an option for her when she is able to proceed. We can follow her up on an outpatient basis.
[2021-03-20 11:10] LABS: Glucose,Whole Blood 210 mg/dL (75-99)
[2021-03-20] MEDS: HYDROcodone/APAP 7.5-325MG 1 EACH TAB PO PRN ×2 (11:30→17:00)
[2021-03-20 13:55] VITALS: BP 126/73; TEMP 98.2
[2021-03-20 16:31] LABS: Glucose,Whole Blood 241 mg/dL (75-99)
--- NOTE | 2021-03-20 17:57 | P.PN ---
Subjective Progress Note Date: 03/20/21 The patient is seen at bedside and continues to be about the same. Objective - Vital Signs Vital signs: Vital Signs Temp 98.2 F 03/20/21 13:54 Pulse 95 03/20/21 13:54 Resp 16 03/20/21 13:54 BP 126/73 03/20/21 13:54 Pulse Ox 93 L 03/20/21 13:54 Intake & Output 03/19/21 03/20/21 03/20/21 18:59 06:59 18:59 Intake Total 600 Balance 600 Intake: Oral 600 Other: # Voids 4 1 3 - Exam Patient is alert awake oriented to time place and person. Speech and language functions are normal. Attention, concentration and fund of knowledge is adequate. On cranial nerve examination, pupils are round and reacting to light, visual pimentel are full on confrontation, extraocular muscles are intact with no nystagmus. Face is symmetric, tongue protrudes to the midline. Palatal elevation and sensation normal, hearing and shoulder shrug normal, facial sensation normal. Shoulder shrug normal. Motor: Gait is deferred. Bilateral upper extremity strength is 5/5. Her right lower extremity there is limitation in assessing strength because of pain. She has at least 3-4- over right hip, has right knee extension above gravity. Right ankle dorsiflexion is 2 while plantarflexion is 4. Left hip is 4+ to 5- and left knee is 4+ and left ankle is 5/5. According to patient left side is old findings. Tone and bulk of muscles normal. Sensory to touch is normal to touch throughout. Cerebellar function showed no ataxia for [id number] testing. No dysdiadoc hokinesia. Deep tendon reflexes are 2+ throughout bilateral patellar while ankles are 1+ bilaterally. Plantars are mute bilaterally. WORK-UP: RICHARD is positive. Vitamin B6: 22 AntiDSDNA is negative. ESR: 14 Her last hemoglobin A1c 11.8 on 12/30/2020. Serum Immunofixation: No monoclonal paraprotein. B12 440, folate 12.60, TSH 2.49, ESR 14, IgG 743, IgM 89.2 normal. 2-D echo revealed mild concentric LVH. EF is between 55-60%. Left atrium is moderately dilated. Duplex of right lower extremity: Negative for DVT. Patient had MRI L-spine today and it is reported as: 2 level degenerative ch anges. Increased left-sided encroachment noted in the lower lumbar spine. In the body of the report it is reported that the patient has moderate facet after breathy bilaterally over the L4-L5 with the left for maternal disc protrusion. There is also close proximity in the central left L5 nerves. There is more moderate right sided inferior neuroforaminal narrowing over the L4-L5. Over the L5-S1 there is mild to moderate facet arthropathy and there is moderate to severe left-sided neural foraminal narrowing. - Labs CBC & Chem 7: 03/19/21 06:00 03/19/21 06:00 Labs: Abnormal Lab Results - Last 24 Hours (Table) 03/19/21 03/20/21 03/20/21 Range/Units 21:41 07:29 11:09 POC Glucose (mg/dL) 209 H 224 H 210 H (75-99) mg/dL 03/20/21 Range/Units 16:30 POC Glucose (mg/dL) 241 H (75-99) mg/dL Assessment and Plan Assessment: * Right leg pain with edema, discoloration: Unkown exact etiology. Possible connection tissue disease vs ?peripheral vascular disease/arterial disease vs Complex regional pain syndrome. I am not convinced it is due to lumbosacaral radiculopathy vs plexopathy vs neuropathy. * Lumbosacral radiculopathy * Lumboscaral spondylosis (that is moderate to severe over L5-S1 over the left and moderate over the L4-L5 over the right). Patient states has has known history of this in past. * Diabetes poorly controlled (Last hemoglobin A1c 11.8 on 12/30/2020) * Hypertension * Peripheral vascular disease, status post stenting in the right leg on 01/04/2021 ( Plan: * Patient had MRI L-spine today and it is reported as: 2 level degenerative changes. Increased left-sided encroachment noted in the lower lumbar spine. In the body of the report it is reported that the patient has moderate facet after breathy bilaterally over the L4-L5 with the left for maternal disc protrusion. There is also close proximity in the central left L5 nerves. There is more moderate right sided inferior neuroforaminal narrowing over the L4-L5. Over the L5-S1 there is mild to moderate facet arthropathy and there is moderate to severe left-sided neural foraminal narrowing. * Agree with trying Lyrica 100 mg twice a day. If needed, may increase the dose to 150 mg twice a day. * Orthopedic team is consulted by primary team. I spoke with Dr. Smith and he agree and does not feels it is related to Lumbar radiculopathy vs plexopathy or neuropathy. I spoke with vascular team and they do not feel it is PAD/PVD. Patient will follow-up with Orthopedic team as outpatient. * Optimize control of diabetes. * Recommend EMG and nerve conduction study of right lower extremity as an outpatient to evaluate further. * Recommend patient to follow-up with Quality Systems Technician as outpatient as well pain specialist. * Pt and OT are consulted. * Will defer the rest of medical management to the primary team. * Upon discharge, recommend patient to follow-up with Neurologist within 1-2 weeks. The plan is discussed with the patient and vascular surgery team (Dr. Byrne). There is no further work-up and is clear from neurological stand point. Rick Weller MD Neuro-Hospitalist Time with Patient: Less than 30
--- NOTE | 2021-03-20 23:55 | P.DS ---
Providers Date of admission: 03/18/21 09:26 Attending physician: Vitor Carvajal Consults: 03/16/21 01:20 Consult Physician Routine Consulting Provider: Georgie Byrne Consult Reason/Comments: known Do you want consulting provider notified?: Yes 03/16/21 12:07 Consult Physician Urgent Consulting Provider: Braeden Boss Consult Reason/Comments: right leg sever pain Do you want consulting provider notified?: Yes 03/18/21 15:59 Consult Physician Urgent Consulting Provider: Karen Smith Consult Reason/Comments: lumbar spine degenerative disease with right leg weakness Do you want consulting provider notified?: Yes 03/18/21 21:10 Consult Physician Routine Consulting Provider: Soren Clifford Consult Reason/Comments: right leg weakness Do you want consulting provider notified?: Yes, Notify in am Primary care physician: Stated None Hospital Course: Diagnoses: Right leg pain and swelling, unclear eitiolgy , could be vascular versus neurological causes or multi-factorial. several foreign law consultant evaluated pt and all cleared her for discharge and f/u as outpt. recent History of right lower extremity occlusive disease status post right common femoral thromboendarterectomy with patch angioplasty and balloon dilation of the femoral and iliac segments Mildly elevated troponin, acute coronary syndrome has been ruled out, needs outpatient stress test per cardiology right lateral ankle wound, with no obvious surrounding cellulitis, healing. Diabetes mellitus Previous nicotine dependence total one month ago Obesity with BMI of 53.1 Hospital course: This is a pleasant 50 years old female with past medical history of diabetes mellitus. she is with recent History of of right lower extremity occlusive disease status post right common femoral thromboendarterectomy with patch angioplasty and balloon dilation of the femoral and iliac segments with about two months ago Patient presents because of right leg pain and swelling. Patient states that on 01/04/2021 patient had the stent placed in the right leg by Dr. Byrne,at home she's been using a cane Rosalind patient noticed that her right leg started to swollen, and was told about it by her boyfriend as well. And next day starts hurting with pain in the inner thigh radiating to the groin and radiating to the back and give her some back spasm, she states that her pain in her leg is severe tenderness and that needed Dilaudid 1 mg barely take the age of the pain down to 8/10. It feels like tight and hot. Also she feels pain in her toes recommended to the ankle feel like valdemar pain. Patient has been evaluated by several consultants including neurology, vascular surgery and orthopedic surgery and she had extensive workup Venous Doppler is negative for DVT in both legs. Echocardiogram showed ejection fraction of 55%-60%. Lumbar MRI with degenerative disc disease with spondylitic changes but no acute fracture. Also showing increased left-sided encroachment noted in the lower lumbar spine (please refer for the full report for more details) Orthopedic team also evaluated the patient recommended to continue with conservative management, patient herself was not interested in surgery per their notes. Neurology were evaluated patient for radiculopathy, plexopathy versus neuropathy however they felt it could be more vascular at the same time vascular team were not very convinced that this is due to blood vessel disease and could be more neurological, no clear etiology was found however patient highly recommended by [facility] medical team that she keep follow-up as an outpatient and to undergo nerve conducting study and EMG with the neurologist as an outpatient. Also her RICHARD was positive but [id number] DNA and immunofixation tests were negative, however neurologist recommended that patient follow up with compliance technician, patient was referred to as outpatient and pt agrees to follow up with her The consult was obtained and she was in eligible for spinal injection as she is currently on aspirin and Plavix for her recent vascular procedure therefore the place her on MS Contin 15 mg twice a day in an [place] 7.5 mg and IV Dilaudid 1 mg every 8 hours which she was taking after he starts MS Contin patient felt better and she couldn't move her lower extremity better. I discussed the case with pain management today and Dr. Ashton who recommended to discharge her on MS Contin and [place] 7.5 mg, since we are going to stop iv Dilaudid upon discharge . MAPS was checked and patient was counseled extensively about narcotics and risks explained to her including but not limited to risk of respiratory depression and/or and she verbalized understanding and acceptance. Also she was counseled extensively [place] using benzodiazepines, we stopped her Restoril, and to avoid alcohol, marijuana or any other sedatives to decrease the chances of applications. Also discussed with her the call if pain should be tolerated so she can't function rather than 0 pain and she agrees as well. Also provided her with a short course of pain management with recommendation for close outpatient follow-up with her PCP and pain clinic. Shortly has an appointment with her PCP tomorrow and she was provided with the contact information for the pain clinic with recommendation to follow up in 3 days and she agrees to call and make her own appointment Eventually patient feels better, she denies any other symptoms. Staff Physical Therapy Assistant evaluated her for mildly elevated troponin and cleared her for discharge and outpatient stress test and she agrees On the day of discharge she denies chest pain or dyspnea, no coughing, no headache or dizziness, no weakness or numbness or pain other than her right lower extremity. No change in urine or bowel habits. No fever. Physical therapist and occupational therapy team evaluated the patient and they recommended patient can go home Patient was cleared for discharge by all consultants including neurologist, vascular surgeon, orthopedic surgeon, sales representative meats and pain management. Problems and management plan were discussed with the patient and he verbalized understanding and acceptance Patient was found stable and can be discharged home in guarded prognosis however he needs follow-up as an outpatient. Patient was instructed to follow up with PCP within one week and patient agrees Physical exam Gen: patient is a AAOx3, no distress CVS: S1-S2, RRR, no murmur Lungs: B/L CTA, no wheezing Abdomen: soft, no distention, no tenderness, positive bowel sounds Extremity: no leg edema or induration Neurology: Cranial nerves are grossly intact. Strength 5/5 and sensation intact except for the right lower extremity. Right lower extremity examination is limited by pain, however today she is able to bend her knee much better than the last few days,. Time spent more than 35 minutes Patient Condition at Discharge: Serious Plan - Discharge Summary Discharge Rx Participant: Yes New Discharge Prescriptions: New HYDROcodone/APAP 7.5-325MG [[place] 7.5-325] 1 each PO Q6HR PRN 3 Days #12 tab PRN Reason: Pain Atorvastatin [Lipitor] 40 mg PO DAILY #30 tab Melatonin 5 mg PO HS PRN #15 tablet PRN Reason: Insomnia Morphine Sulfate ER [Ms Contin] 15 mg PO Q12HR 3 Days #6 tablet Continue Aspirin 81 mg PO DAILY tab Pregabalin [Lyrica] 100 mg PO BID #6 cap Insulin Lispro [humaLOG Kwikpen] See Protocol SQ AC-TID Insulin Glargine,Hum.rec.anlog [Semglee Pen] See Protocol SQ HS Clopidogrel [Plavix] 75 mg PO DAILY #30 tab Nicotine 14Mg/24Hr Patch [Habitrol] 1 patch TRANSDERM DAILY patch Multivitamins, Thera [Multivitamin (formulary)] 1 tab PO DAILY Fluticasone Nasal [place] [Flonase Nasal [place]] 1 spray EA NOSTRIL DAILY PRN PRN Reason: Congestion Omeprazole 20 mg PO HS #30 cap Cholecalciferol [Vitamin D3 (25 Mcg = 1000 Iu)] 25 mcg PO DAILY #30 tab lisinopriL [Zestril] 10 mg PO DAILY #30 tab Discontinued Temazepam [Restoril] 15 mg PO HS PRN #3 cap PRN Reason: Insomnia Discharge Medication List Aspirin 81 mg PO DAILY tab 01/09/21 [Rx] Nicotine 14Mg/24Hr Patch [Habitrol] 1 patch TRANSDERM DAILY patch 01/09/21 [Rx] Pregabalin [Lyrica] 100 mg PO BID #6 cap 01/09/21 [Rx] Fluticasone Nasal [place] [Flonase Nasal [place]] 1 spray EA NOSTRIL DAILY PRN 03/16/21 [History] Insulin Glargine,Hum.rec.anlog [Semglee Pen] See Protocol SQ HS 03/16/21 [History] Insulin Lispro [humaLOG Kwikpen] See Protocol SQ AC-TID 03/16/21 [History] Multivitamins, Thera [Multivitamin (formulary)] 1 tab PO DAILY 03/16/21 [History] Atorvastatin [Lipitor] 40 mg PO DAILY #30 tab 03/20/21 [Rx] Cholecalciferol [Vitamin D3 (25 Mcg = 1000 Iu)] 25 mcg PO DAILY #30 tab 03/20/21 [Rx] Clopidogrel [Plavix] 75 mg PO DAILY #30 tab 03/20/21 [Rx] HYDROcodone/APAP 7.5-325MG [[place] 7.5-325] 1 each PO Q6HR PRN 3 Days #12 tab 03/20/21 [Rx] Melatonin 5 mg PO HS PRN #15 tablet 03/20/21 [Rx] Morphine Sulfate ER [Ms Contin] 15 mg PO Q12HR 3 Days #6 tablet 03/20/21 [Rx] Omeprazole 20 mg PO HS #30 cap 03/20/21 [Rx] lisinopriL [Zestril] 10 mg PO DAILY #30 tab 03/20/21 [Rx] Follow up Appointment(s)/Referral(s): Glynn Ramon MD [STAFF PHYSICIAN] - 2 Weeks (sales representative meats , we recommend stress test as outpatient setting ) Sydnie Burgess MD [REFERRING] - 1 Week (neurologsit : Recommend EMG and nerve conduction study of right lower extremity as an outpatient ) Karen Smith DO [Doctor of Osteopathic Medicine] - 4 Weeks (Patient may follow-up with Johs Darby PA-C or Dr. Juan Luis Smith at [facility] in 4 weeks following discharge. ) Georgie Byrne DO [STAFF PHYSICIAN] - 1 Week (vascular surgeon ) [facility] [NON-STAFF] - 3 Days (please follow up with Gurjit Boggs or his colleagues ) Conner Farmer DO [STAFF PHYSICIAN] - 1 Week (neurologsit : Recommend EMG and nerve conduction study of right lower extremity as an outpatient ) Rosmery Fulton MD [STAFF PHYSICIAN] - 1 Week (independent beauty consultant ) Louann Peoples NPC [Nurse Practitioner] - 03/21/21 Patient Instructions/Handouts: Chronic Wound Care (DC) Activity/Diet/Wound Care/Special Instructions: *Discharging RN - patient will likely need a cab ride home and the hospital will pay. [phone]. Glucometer prescription sent to [facility]. Please call [phone] if you do not hear from them within 2 days of discharge from the hospital. heart healthy diet activity is restricted till you see your doctor we recommended do not drive while on narcotic medications, any other sedative medications, and illicit drugs including marijuana. while your are on narcotics (eg norco and morphine) avoid consuming alcohol , other sedatives , avoid benzodiazepine (no ativan , valium , xanax, or restoril ) as there is increased risk of respiratory depression and/or Discharge Disposition: HOME WITH HOME HEALTH SERVICES
== END 2021-03-20 18:27 | disposition home health service (06) | DRG 552 ==
LOC: EC 21:37 → 4SSUR 03-16 01:20 → OBSVTOIN 03-18 09:26
PROVIDERS: ADMIT Hospitalist; ATTEND Hospitalist
DX: M54.16 Radiculopathy, lumbar region (principal); M47.16 Other spondylosis with myelopathy, lumbar region; M51.06 Intervertebral disc disorders with myelopathy, lumbar region; Z68.43 Body mass index [BMI] 50.0-59.9, adult; L03.115 Cellulitis of right lower limb; Z20.822 Contact with and (suspected) exposure to COVID-19; L97.512 Non-pressure chronic ulcer of other part of right foot with fat layer exposed; E11.51 Type 2 diabetes mellitus with diabetic peripheral angiopathy without gangrene; E11.65 Type 2 diabetes mellitus with hyperglycemia; M43.16 Spondylolisthesis, lumbar region; M51.17 Intervertebral disc disorders with radiculopathy, lumbosacral region; M46.97 Unspecified inflammatory spondylopathy, lumbosacral region; R77.8 Other specified abnormalities of plasma proteins; E66.9 Obesity, unspecified; M48.061 Spinal stenosis, lumbar region without neurogenic claudication; I70.232 Atherosclerosis of native arteries of right leg with ulceration of calf; M79.89 Other specified soft tissue disorders; I70.233 Atherosclerosis of native arteries of right leg with ulceration of ankle; I70.235 Atherosclerosis of native arteries of right leg with ulceration of other part of foot; R53.1 Weakness; I10 Essential (primary) hypertension; Z82.49 Family history of ischemic heart disease and other diseases of the circulatory system; X31.XXXA Exposure to excessive natural cold, initial encounter; Z79.02 Long term (current) use of antithrombotics/antiplatelets; Z79.4 Long term (current) use of insulin; Z79.82 Long term (current) use of aspirin; Z79.899 Other long term (current) drug therapy; Z87.442 Personal history of urinary calculi; Z87.891 Personal history of nicotine dependence; Z88.8 Allergy status to other drugs, medicaments and biological substances; Z90.710 Acquired absence of both cervix and uterus; Z95.820 Peripheral vascular angioplasty status with implants and grafts; Z88.6 Allergy status to analgesic agent
CPT/HCPCS: 36415; 72131; 72158; 80048; 80053; 82607; 82746; 82784; 83605; 83735; 84100; 84207; 84443; 84484; 85025; 85379; 85610; 85652; 85730; 86038; 86039; 86225; 86334; 87635; 93005; 93306; 96361; 96374; 99285

== ENCOUNTER → 2021-05-22 | Outpatient (CLI) | payer MEDICARE, OTHER ==
[2021-05-22 11:20] VITALS: BP 188/86; PULSE 100; RESP 18; TEMP 97.8
--- NOTE | 2021-05-22 11:40 | P.PN ---
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 Patient states she expressed 75% pain relief for one and a half weeks. Pain level is currently at 7 out of 10 in intensity, dull, achy, constant in the lower aspects of the lumbar spine with radiation of pain greater in the right lower extremity than left. Escalates as high as 10 out of 10 in intensity when sitting in one position for periods of 45 minutes or more. Pain is alleviated with medications, topicals, injections, ice, heat, physical therapy in the past, chiropractic treatments in the past, home daily exercise regimen, use of a cane and wheelchair for ambulatory assistance, massage therapy, repositioning and rest. Interventional pain procedures completed include facet blocks of the medial branches bilateral L4-L5, L5-S1 #1 Patient is currently on MS ER 15mg #60, [place] 7.5/325 #120 and Zanaflex 3 times a day when necessary. Also Lyrica [address] Ashraf Patient denies any side effects of the medication(s), denies excessive drowsiness or sleepiness, denies suicidal ideation and reports that the current pain medication is helping to control the pain and improve activities of daily living. Patient denies any motor or sensory deficits. Patient denies any fever or night sweats, denies any change in the bowel movements or urination. Physical Examination: -Constitutional: Cooperative. Not in acute distress . -HEENT: Neck is supple. No lymphadenopathy. No thyromegaly. Normal thyroid size. Eyes: No ptosis , no icterus, no photophobia. ENT: No auditory deficits. Normal oropharynx. No Thrush. - Respiratory: Chest clear to auscultations bilaterally. No wheezing. No rhonchi. - Cardiovascular: Regular rate and rhythm. S1 / S2 , no S3 , no S4. - Gastrointestinal: Abdomen soft no tenderness. Bowel sounds positive in all four quadrants. No organomegaly. - Genitourinary: Deferred. - Neurologic: Cranial nerve II to XII intact. No focal neurological deficits. - Psychatric: Alert & oriented x 3. Matching mood & appropriate affect. Judgment and insight intact. - Lymphatic: No Lymphadenopathy. - Musculoskeletal: Cervical spine: Muscle bulk/ tone/ strength in the bilateral upper extremities normal. Facet loading test cervical area positive. Lumbar spine: Motor bulk/ tone/ strength lower extremities , thigh and legs : 5/5 Deep tendon reflexes : Normal Knee Jerk. Normal Ankle Jerk . Vertebral body tenderness to palpation over L4, L5 Lumbar Facet Loading Test positive over L4 L5 and L5-S1 bilaterally with jump reflex Straight Leg Raise: positive at 30 degrees right side/ left side Gaenslen's Test positive Sacral spine : Severe tenderness over the Sacroiliac joint: right side / left side Range of motion: Flexion of the lumbar spine <60 degrees Range of motion: Extension of the lumbar spine <20 degrees Gaenslen's Test positive Gato test: positive right side / left side Assessment and plan: Chronic low back pain secondary to lumbar degenerative disc disease , lumbar spondylosis with facet arthropathy without myelopathy Recommendation of facet block of the medial branches L4-L5, L5-S1 #2 May need additional procedure up until RFA to obtain sufficient pain relief Patient admits to Plavix use and will refrain from a 7 days prior to procedure Patient was admitted to the hospital 1 month ago for pressure ulcer of which she received antibiotic treatment. Counseled patient to notify us if she needs to restart antibiotic treatment so we may reschedule procedure date Chronic and current use of high-risk medication (Opioids). The patient was counseled about risk of opioid use, psychological risk associated with opioids and was orally counseled to not overuse , divert or sell medications. Pt is to store medication in a safe location. The patient is counseled against driving while using narcotic medications and also not to use alcohol or any illicit recreational drugs. Patient verbalized understanding that the lack of compliance will result in failure to renew narcotic prescription(s) as well as possible discharge from the clinic Diagnoses, prognosis and treatment options including but not limited to physical therapy, surgical interventions, interventional therapies and medication management including narcotics and adjuvant medication were discussed. All patient questions answered UDS reviewed and was consistent . Agreement up-to-date MAPS reviewed and it was appropriate. Prescription refill for [place] 7.5/325 #120 with refill, MS ER 15 mg #60 with 1 refill, Zanaflex No. 90 with refill I have spent 31 minutes on patient care today. Dr Ashton was available by phone for the evaluation of this patient. The time was used to review the medical records including relevant urine studies and Prescription history (MAPs), review of the available imaging, evaluation and examination of the patient, coordination of care with the medical staff and if applicable referring physicians, as well as creation of the medical record Objective - Vital Signs Vital signs: Vital Signs Temp 97.8 F 05/22/21 11:16 Pulse 100 05/22/21 11:16 Resp 18 05/22/21 11:16 BP 188/86 05/22/21 11:16 Pulse Ox 97 05/22/21 11:16 PQRS Measure Charge Sheet Mode of Arrival: Wheelchair, Cane - Pain Location Lower Back Non-Pharmacological Interventions: Heat, Home Exercise, Ice, Inactivity, Massage, Physical Therapy, Position/Reposition, Stretching Pharmacological Interventions: Block, Medication, PRN Medication, Scheduled Medication PQRS Narrative: Smoking Status Current every day smoker Narcotic Agreement Date Signed 03/27/21 Blood Pressure 188/86 Pain Intensity [Lower Back] 7 Scale Used Numeric (1 - 10) Hx Alcohol Use (MH) Yes Home Medications: Ambulatory Orders Cholecalciferol [Vitamin D3 (25 Mcg = 1000 Iu)] 25 mcg PO DAILY #30 tab 03/20/21 Clopidogrel [Plavix] 75 mg PO DAILY #30 tab 03/20/21 Melatonin 5 mg PO HS PRN #15 tablet 03/20/21 Omeprazole 20 mg PO HS #30 cap 03/20/21 lisinopriL [Zestril] 10 mg PO DAILY #30 tab 03/20/21 Atorvastatin [Lipitor] 40 mg PO HS 03/26/21 Naloxone HCl [Narcan] 4 mg NASAL ONCE PRN 30 Days #1 each 03/27/21 Docusate [Colace] 100 mg PO BID cap 04/29/21 Insulin Aspart [NovoLOG Flexpen] See Protocol SQ TID-W/MEALS PRN #10 ml 04/29/21 Insulin Detemir (Levemir) [Levemir] 20 unit SQ HS 30 Days #10 ml 04/29/21 Pregabalin [Lyrica] 100 mg PO TID #9 cap 04/29/21 Multivitamins, Thera [Multivitamin (formulary)] 1 tab PO DAILY 02/21/22 HYDROcodone/APAP 7.5-325MG [[place] 7.5-325] 1 tab PO Q6H PRN 30 Days #120 tab 05/22/21 HYDROcodone/APAP 7.5-325MG [[place] 7.5-325] 1 tab PO Q6HR PRN 30 Days #120 tab 05/22/21 Morphine Sulfate ER [Ms Contin] 15 mg PO Q12H 30 Days #60 tablet 05/22/21 Morphine Sulfate ER [Ms Contin] 15 mg PO Q12HR 30 Days #60 tab 05/22/21 tiZANidine [Zanaflex] 4 mg PO Q8HR PRN 30 Days #90 tab 05/22/21
== END ==
LOC: PNWHC3 10:54
PROVIDERS: ATTEND Physician Assistant Medical
DX: M51.36 Other intervertebral disc degeneration, lumbar region (principal); M47.816 Spondylosis without myelopathy or radiculopathy, lumbar region; G89.29 Other chronic pain; Z79.891 Long term (current) use of opiate analgesic; F17.200 Nicotine dependence, unspecified, uncomplicated; Z91.018 Allergy to other foods; Z88.6 Allergy status to analgesic agent; Z88.5 Allergy status to narcotic agent; Z88.8 Allergy status to other drugs, medicaments and biological substances
CPT/HCPCS: 99211

== ENCOUNTER 2021-06-21 09:06 | Day surgery (SDC) | payer MEDICARE, OTHER ==
[2021-06-19 11:11] VITALS: BMI 32.1
[~2021-06-21 09:06] MED LIST: LACTATED RINGERS 1,000 ML IV SCH; LIDOCAINE 1% (10MG/ML) FOR IV START INTRADERMA PRN
[2021-06-21 09:41] LABS: Glucose,Whole Blood 211 mg/dL (75-99)
[2021-06-21 09:45] VITALS: TEMP 96.5
[2021-06-21] MEDS ORDERED: fentaNYL (PF) 50 MCG/ML 2 ML AMP ONE (10:03)
[2021-06-21] MEDS ORDERED: ROPIVACAINE 5MG/ML 20ML VIAL ONE (10:03)
[2021-06-21] MEDS ORDERED: MIDAZOLAM 2 MG/2 ML VIAL ONE (10:03)
[2021-06-21] MEDS ORDERED: methylPREDNISolone ACETATE 40 MG/ML 1 ML VIAL ONE (10:03)
--- NOTE | 2021-06-21 10:20 | P.PCN ---
Date of Procedure: 06/21/21 Procedure(s) Performed: PREOPERATIVE DIAGNOSIS : 1- Lumbar spondylosis with Facet Arthropathy without myelopathy . 2- Lumber degenerative disc disease POSTOPERATIVE DIAGNOSIS: 1- Lumbar spondylosis with Facet Arthropathy without myelopathy . 2- Lumber degenerative disc disease PROCEDURE: Diagnostic bilateral L3 , L4 , and L5 medial branch block under fluoroscopy guidance(fluoroscopy images available in the radiology Department ) ( To target the facet joint between bilateral L4-5 , and L5-S1 )#2nd [facility]ESTHESIA:[facility] anesthesia department. EBL: Minimal COMPLICATION: None PROCEDURE INDICATION: Chronic low back pain secondary to Facet arthropathy unresponsive to conservative treatment. PROCEDURE DESCRIPTION: the patient was seen and identified in the preop holding area , risks and benefits and possible complications of the procedure and alternative were discussed with the patient, and the patient agreed to proceed with the procedure and signed the consent and vital signs monitored during the procedure and fluoroscopy was used to maximize the benefit and accuracy of the needle placement, and sedation was given to decrease patient anxiety, patient was taken to the procedure room and placed in prone position vital signs monitored in the back prepped with chlorhexidine X3 then under strict sterile technique using a right oblique fluoroscopy ,the junction of the transverse process and the superior articulating process of the right L3 , L4 , and L5 vertebra which corresponding to the fluoroscopy image of the eye of the Mauro dog on the block side for the medial branches and subsequently , after local infiltration of skin and subcu tissuies with Ropivacaine 0.5 % , one mL at each level ,then 22-gauge Quincke-type needles , 3 needle was used , each one of them placed at the junction of the base of the transverse process and the superior articular process at the appropriate level, and the needle was advanced until the periosteum contacted, needle placement confirmed with AP oblique and lateral view and after appropriate needle placement confirmed, and after negative aspiration for heme and CSF and there was no paresthesia 1-1/2 mL of Ropivacaine 0.5% mixed with 20 mg Depo-Medrol , then half mL injected at each level after negative aspiration the needle subsequently removed and the same procedure repeated for the left side at left side at L3 , L4 and L5 levels. At the end of the procedure and the needles removed and a bandage applied after the skin was cleaned the cleaning solution patient taken to recovery room in stable condition and monitors in the recovery room for 20-30 minutes and discharged home in stable condition after discharge criteria met and patient will follow up with the pain clinic in 2-4 weeks
[2021-06-21] MEDS ORDERED: IV FLUID CONTINUATION 1,000 ML IV ONE (10:25)
--- NOTE | 2021-06-21 10:33 | FL ---
EXAMINATION TYPE: FL guided pain mgmt statistic DATE OF EXAM: 06/21/2021 CLINICAL HISTORY: Low back pain. TECHNIQUE: Fluoroscopy. COMPARISON: None. FINDINGS: Fluoroscopic guidance was provided during pain relief procedure performed by Dr. Ashton . A total of 25 seconds of fluoroscopic time was utilized during the procedure and 4 spot images are acquired. Images acquired shows needle localization at several levels in the lower lumbar spine. IMPRESSION: As Above.
[2021-06-21 10:47] VITALS: BP 120/65; PULSE 84; RESP 16
[2021-06-21 10:54] LABS: Glucose,Whole Blood 177 mg/dL (75-99)
== END 2021-06-21 11:05 | disposition home or self-care (01) ==
LOC: ORPAIN 09:06
PROVIDERS: ATTEND Specialist
DX: M47.816 Spondylosis without myelopathy or radiculopathy, lumbar region (principal); M51.36 Other intervertebral disc degeneration, lumbar region; G89.29 Other chronic pain
CPT/HCPCS: 64493; 64494 ×2; J2250; J1030; J3010; J2795

== ENCOUNTER → 2021-07-17 | Outpatient (CLI) | payer OTHER ==
[2021-07-17 11:23] VITALS: BP 149/85; PULSE 104; RESP 18
--- NOTE | 2021-07-17 11:44 | P.PN ---
Subjective Progress Note Date: 07/17/21 Principal diagnosis: A 51 yr old wheelchair bound female with at side with a history of severe and chronic low back pain secondary to lumbar degenerative disc diseases and lumbar spondylosis with facet arthropathy presents today for evaluation status post facet blocks of the medial branches L4-L5, L5-S1 #2. Patient states she experienced 50% pain relief for 9 days status post procedure. Pain level is currently at 7 out of 10 in intensity, dull, achy, constant in the lower aspects of her lumbar spine with radiation of pain to the bilateral lower extremities. Pain is provoked by standing or walking for periods of 10 minutes or more. Pain is alleviated with medications although Zanaflex to take for breakthrough pain and spasms has been ineffective, topicals, injections, ice, heat, physical therapy in the past, chiropractic treatment in 2007 though was told by her chiropractor to discontinue, home-based stretching regimen, use of a cane for ambulation, use of a wheelchair for ambulation and rest. Interventional pain procedures completed include facet blocks and medial branches L4-L5, L5-S1 2 Patient is currently on Bayside 7.5/325, morphine sulfate 15 mg twice a day, Zanaflex. Patient denies any side effects of the medication(s), denies excessive drow siness or sleepiness, denies suicidal ideation and reports that the current pain medication is helping to control the pain and improve activities of daily living. Patient denies any motor or sensory deficits. Patient denies any fever or night sweats, denies any change in the bowel movements or urination. Physical Examination: -Constitutional: Cooperative. Not in acute distress . -HEENT: Neck is supple. No lymphadenopathy. No thyromegaly. Normal thyroid size. Eyes: No ptosis , no icterus, no photophobia. ENT: No auditory deficits. Normal oropharynx. No Thrush. - Respiratory: Chest clear to auscultations bilaterally. No wheezing. No rhonchi. - Cardiovascular: Regular rate and rhythm. S1 / S2 , no S3 , no S4. - Gastrointestinal: Abdomen soft no tenderness. Bowel sounds positive in all four quadrants. No organomegaly. - Genitourinary: Deferred. - Neurologic: Cranial nerve II to XII intact. No focal neurological deficits. - Psychatric: Alert & oriented x 3. Matching mood & appropriate affect. Judgment and insight intact. - Lymphatic: No Lymphadenopathy. - Musculoskeletal: Cervical spine: Muscle bulk/ tone/ strength in the bilateral upper extremities normal. Facet loading test cervical area positive. Lumbar spine: Motor bulk/ tone/ strength lower extremities , thigh and legs : 5/5 Deep tendon reflexes : Normal Knee Jerk. Normal Ankle Jerk . Vertebral body tenderness to palpation over Lumbar Facet Loading Test positive Straight Leg Raise: positive at 30 degrees right side/ left side Gaenslen's Test positive Sacral spine : Severe tenderness over the Sacroiliac joint: right side / left side Range of motion: Flexion of the lumbar spine <60 degrees Range of motion: Extension of the lumbar spine <20 degrees Gaenslen's Test positive Gato test: positive right side / left side Assessment and plan: Chronic low back pain secondary to lumbar degenerative disc disease , lumbar spondylosis with facet arthropathy without myelopathy Chronic and current use of high-risk medication (Opioids). The patient was counseled about risk of opioid use, psychological risk associated with opioids and was orally counseled to not overuse , divert or sell medications. Pt is to store medication in a safe location. The patient is counseled against driving while using narcotic medications and also not to use alcohol or any illicit recreational drugs. Patient verbalized understanding that the lack of compliance will result in failure to renew narcotic prescription(s) as well as possible discharge from the clinic Diagnoses, prognosis and treatment options including but not limited to physical therapy, surgical interventions, interventional therapies and medication management including narcotics and adjuvant medication were discussed. All patient questions answered MAPS reviewed and it was appropriate. UDS from 02/2021 reviewed and consistent Prescription refill for Bayside 735/325mg #120 1 refill, MS ER 15mg #60 1 refill, discontinue Zanaflex. Start Flexeril 5mg TID #90 1 refill. I have spent 31 minutes on patient care today. Dr Ashton was available by phone for the evaluation of this patient. The time was used to review the medical records including relevant urine studies and Prescription history (MAPs), review of the available imaging, evaluation and examination of the patient, coordination of care with the medical staff and if applicable referring physicians, as well as creation of the medical record Objective - Vital Signs Vital signs: Vital Signs Temp Pulse 104 H 07/17/21 11:17 Resp 18 07/17/21 11:17 BP 149/85 07/17/21 11:17 Pulse Ox 98 07/17/21 11:17 Intake & Output 07/16/21 07/17/21 07/17/21 18:59 06:59 18:59 Weight 99.337 kg PQRS Measure Charge Sheet Mode of Arrival: Wheelchair, Cane - Pain Location Back Non-Pharmacological Interventions: Chiropractic Treatment, Heat, Home Exercise, Ice, Massage, Physical Therapy, Position/Reposition, Stretching Pharmacological Interventions: Block, PRN Medication, Scheduled Medication, Topical Medication PQRS Narrative: Smoking Status Current every day smoker Narcotic Agreement Date Signed 03/27/21 Blood Pressure 149/85 Pain Intensity [Back] 7 Scale Used Numeric (1 - 10) Hx Alcohol Use (MH) Yes Home Medications: Ambulatory Orders Cholecalciferol [Vitamin D3 (25 Mcg = 1000 Iu)] 25 mcg PO DAILY #30 tab 03/20/21 Clopidogrel [Plavix] 75 mg PO DAILY #30 tab 03/20/21 Melatonin 5 mg PO HS PRN #15 tablet 03/20/21 Omeprazole 20 mg PO HS #30 cap 03/20/21 lisinopriL [Zestril] 10 mg PO DAILY #30 tab 03/20/21 Atorvastatin [Lipitor] 40 mg PO HS 03/26/21 Naloxone HCl [Narcan] 4 mg NASAL ONCE PRN 30 Days #1 each 03/27/21 Docusate [Colace] 100 mg PO BID cap 04/29/21 Insulin Aspart [NovoLOG Flexpen] See Protocol SQ TID-W/MEALS PRN #10 ml 04/29/21 Insulin Detemir (Levemir) [Levemir] 20 unit SQ HS 30 Days #10 ml 04/29/21 Multivitamins, Thera [Multivitamin (formulary)] 1 tab PO DAILY 05/20/21 Cyclobenzaprine [Flexeril] 5 mg PO TID 30 Days #90 tablet 07/17/21 HYDROcodone/APAP 7.5-325MG [Bayside 7.5-325] 1 tab PO Q6H PRN 30 Days #120 tab 07/17/21 HYDROcodone/APAP 7.5-325MG [Bayside 7.5-325] 1 tab PO Q6HR PRN 30 Days #120 tab 07/17/21 Morphine Sulfate ER [Ms Contin] 15 mg PO Q12H 30 Days #60 tab 07/17/21 Morphine Sulfate ER [Ms Contin] 15 mg PO Q12HR 30 Days #60 tab 07/17/21
== END ==
LOC: PNWHC3 10:54
PROVIDERS: ATTEND Specialist
DX: G89.29 Other chronic pain (principal); M51.36 Other intervertebral disc degeneration, lumbar region; M47.816 Spondylosis without myelopathy or radiculopathy, lumbar region; F17.200 Nicotine dependence, unspecified, uncomplicated; Z79.891 Long term (current) use of opiate analgesic; Z91.018 Allergy to other foods; Z88.8 Allergy status to other drugs, medicaments and biological substances; Z88.5 Allergy status to narcotic agent; Z88.6 Allergy status to analgesic agent
CPT/HCPCS: 99211

== ENCOUNTER 2021-08-30 06:58 | Day surgery (SDC) | payer OTHER ==
[2021-08-29 11:03] VITALS: BMI 34.8
[2021-08-30 07:24] LABS: Glucose,Whole Blood 344 mg/dL (75-99)
[2021-08-30 07:27] VITALS: RESP 16; TEMP 97
[2021-08-30] MEDS ORDERED: INSULIN ASPART (NovoLOG) 100 UNIT/ML VIAL SQ ONE (07:27)
[2021-08-30] MEDS ORDERED: methylPREDNISolone ACETATE 40 MG/ML 1 ML VIAL ONE (07:43)
[2021-08-30] MEDS ORDERED: ROPIVACAINE 5MG/ML 20ML VIAL ONE (07:43)
[2021-08-30] MEDS ORDERED: fentaNYL (PF) 50 MCG/ML 2 ML AMP ONE (07:43)
[2021-08-30] MEDS ORDERED: MIDAZOLAM 2 MG/2 ML VIAL ONE (07:43)
--- NOTE | 2021-08-30 08:28 | P.PCN ---
Date of Procedure: 08/30/21 Procedure(s) Performed: PREOPERATIVE DIAGNOSIS: 1-Lumbar Spondylosis with Facet Arthropathy without myelopathy. 2- Lumber degenerative disc disease. POSTOPERATIVE DIAGNOSIS: 1- Lumbar Spondylosis with Facet Arthropathy without myelopathy. 2- Lumber degenerative disc disease. PROCEDURES : Bilateral Radiofrequency thermocoagulation, L3 , L4 , and L5 medial branch, with fluoroscopic guidance (fluoroscopy images available in the radiology department) ( to denervate the facet joint at Bilateral L4-5 ,and L5-S1 levels ). ANESTHESIA: Monitored anesthesia care as per anesthesia department . EBL: Minimal PROCEDURE INDICATION: The patient with low back pain secondary to lumbar facet arthropathy who had more than 50% relief of her pain with previous diagnostic lumbar medial branch block with bupivacaine. PROCEDURE DESCRIPTION / TECHNIQUE: The patient was seen and identified in the preoperative area. Risks, benefits, complications, including but not limited to risk of infection ,bleeding , allergic reactions to the medications and no complete pain releife , and alternatives were discussed with the patient, the patient agreed to proceed with the procedure and signed the consent. IV was started. Vital signs remained stable throughout the procedure. Patient was taken to the OR and time out was completed. The patient was placed in the prone position on the procedure table. The lumber area was prepped and draped in the usual sterile fashion. . Vital signs were closely monitored during the procedure .IV sedation was used during the procedure to decrease patients anxiety. Using AP and then oblique fluoroscopy, the ``eye of the Mauro dog cor responding to the connection between the superior and transverse articular processes of right L3, L4, and L5 were identified, marked, and localized with 1% lidocaine. Subsequently, a [id number] radiofrequency cannula with a 10- mm active tip was advanced guided by fluoroscopy to each of the``eyes of the Mauro dog at right L3, L4, and L5. Each site then underwent sensory testing at 50 Hz and 0 to 1 volt and motor testing at 2.5 Hz and 0 to 3 volt with local stimulation, but no radicular symptoms down the legs. Thereafter each sites underwent radiofrequency thermocoagulation at 80 degrees celsius for 90 seconds after injecting 0.5 ml of PF Ropivacaine 1ml, then after the thermocoagulation done , 1 ml of the block solution containing Depo-Medrol 20 mg and 3 ml of Ropivacaine 0.5% was injected at the right L3 , L4 , and L5 , levels after negative aspiration of CSF and blood and with no paresthesias. Cannulas were retracted while injecting lidocaine 1% until the needle is out. The same procedure was repeated at the level of Left L3, L4, and L5 levels. At the end of the procedure, the skin was cleansed and bandages were applied. COMPLICATIONS: No acute complications. DISPOSITION / PLANS: The patient was placed in a supine position and transferred to the recovery area in a stable condition for observation and was discharged from the recovery room after meeting discharge criteria. Home discharge instructions given to the patient by the staff. The patient was reexamined prior to discharge. The patient will schedule a follow up in the clinic in 2-4 weeks.
[2021-08-30] MEDS ORDERED: IV FLUID CONTINUATION 1,000 ML IV ONE (08:34)
[2021-08-30 08:57] LABS: Glucose,Whole Blood 312 mg/dL (75-99)
[2021-08-30 09:01] VITALS: BP 123/76; PULSE 88
--- NOTE | 2021-08-30 09:35 | FL ---
Fluoroscopy INDICATION: Pain FINDINGS: Fluoroscopy time: 26 seconds. Images obtained: 6. IMPRESSIONS: 1. Documentation of fluoroscopy.
== END 2021-08-30 09:28 | disposition home or self-care (01) ==
LOC: ORPAIN 06:58
PROVIDERS: ATTEND Specialist
DX: M47.816 Spondylosis without myelopathy or radiculopathy, lumbar region (principal)
CPT/HCPCS: 64635; 64636; J2250; J1030; J3010; J2795

== ENCOUNTER → 2021-09-11 | Outpatient (CLI) | payer OTHER ==
--- NOTE | 2021-09-11 11:55 | P.PAINPG ---
Objective - Vital Signs Vital signs: Intake & Output 09/10/21 09/11/21 09/11/21 18:59 06:59 18:59 Weight 99.79 kg PQRS Measure Charge Sheet Comment: A 51 yr old female with a history of severe and chronic low back pain secondary to lumbar degenerative disc diseases and lumbar spondylosis with facet arthropathy presents today for evaluation status post BL RFA L4-L5, L5-S1. She states she experienced approximately 70% pain relief status post procedure. Pain level is currently at 6 out of 10 in intensity, sore, achy, constant in the mid spine with radiation of pain downward to the lumbar spine and to the right buttock. Pain escalates as high as 9 out of 10 in intensity with standing and walking for periods of 20 minutes or more. Pain is alleviated with medications, topicals, injections, ice, heat, physical therapy in the past but she has to stop due to hernias, home exercise regimen as tolerated, massage therapy in the past which provoked pain, repositioning and rest. Interventional pain procedures completed include RFA L4-L5, L5-S1 Patient is currently on Longs 7.5/25 #120, MS ER 15 mg #60, Flexeril when necessary Patient denies any side effects of the medication(s), denies excessive drowsiness or sleepiness, denies suicidal ideation and reports that the current pain medication is helping to control the pain and improve activities of daily living. Patient denies any motor or sensory deficits. Patient denies any fever or night sweats, denies any change in the bowel movements or urination. Physical Examination: -Constitutional: Cooperative. Not in acute distress . -HEENT: Neck is supple. No lymphadenopathy. No thyromegaly. Normal thyroid size. Eyes: No ptosis , no icterus, no photophobia. ENT: No auditory deficits. Normal oropharynx. No Thrush. - Respiratory: Chest clear to auscultations bilaterally. No wheezing. No rhonchi. - Cardiovascular: Regular rate and rhythm. S1 / S2 , no S3 , no S4. - Gastrointestinal: Abdomen soft no tenderness. Bowel sounds positive in all four quadrants. No organomegaly. - Genitourinary: Deferred. - Neurologic: Cranial nerve II to XII intact. No focal neurological deficits. - Psychatric: Alert & oriented x 3. Matching mood & appropriate affect. Judgment and insight intact. - Lymphatic: No Lymphadenopathy. - Musculoskeletal: Cervical spine: Muscle bulk/ tone/ strength in the bilateral upper extremities normal Vertebral body tenderness to palpation over Facet loading test positive Thoracic spine Muscle bulk / tone/ strength in the bilateral paraspinal muscles normal Vertebral body tender to palpation over T6, T7, T8 w accompanying paraspinal TTP BL Facet loading test positive Lumbar spine: Motor bulk/ tone/ strength lower extremities , thigh and legs : 5/5 Deep tendon reflexes : Normal Knee Jerk. Normal Ankle Jerk . Vertebral body tenderness to palpation over Lumbar Facet Loading Test positive Straight Leg Raise: positive at 30 degrees right side/ left side Gaenslen's Test positive Sacral spine : Severe tenderness over the Sacroiliac joint: right side / left side Range of motion: Flexion of the lumbar spine <60 degrees Range of motion: Extension of the lumbar spine <20 degrees Gaenslen's Test positive Franki's Test positive Gato test: positive right side / left side Thigh Thrust Test Sacral Thrust Test Assessment and plan: Chronic low back pain secondary to lumbar degenerative disc disease , lumbar spondylosis with facet arthropathy without myelopathy Recommendation of Thoracic xray, 2 views Dx M51.34. Medications refilled. Opiate agreement up to date. Discussed safe storage, use of medications, routine drug screenings, etc and pt acknowledged understanding. Urine for UDS collected today 09/11/21. Medication refills for Longs 10.5/325 #120, MS ER 15 mg #60, Flexeril with 1 refill. All patient questions answered MAPS reviewed and it was appropriate. I have spent 31 minutes on patient care today. Dr Ashton was available by phone for the evaluation of this patient. The time was used to review the medical records including relevant urine studies and Prescription history (MAPs), review of the available imaging, evaluation and examination of the patient, coordination of care with the medical staff and if applicable referring physicians, as well as creation of the medical record - Pain Location Medial Back Non-Pharmacological Interventions: Heat, Ice PQRS Narrative: Smoking Status Current every day smoker Narcotic Agreement Date Signed 03/27/21 Scale Used Numeric (1 - 10) Hx Alcohol Use (MH) Yes Home Medications: Ambulatory Orders Cholecalciferol [Vitamin D3 (25 Mcg = 1000 Iu)] 25 mcg PO DAILY #30 tab 03/20/21 Clopidogrel [Plavix] 75 mg PO DAILY #30 tab 03/20/21 Melatonin 5 mg PO HS PRN #15 tablet 03/20/21 Omeprazole 20 mg PO HS #30 cap 03/20/21 lisinopriL [Zestril] 10 mg PO DAILY #30 tab 03/20/21 Atorvastatin [Lipitor] 40 mg PO HS 03/26/21 Docusate [Colace] 100 mg PO BID cap 04/29/21 Insulin Aspart [NovoLOG Flexpen] See Protocol SQ TID-W/MEALS PRN #10 ml 04/29/21 Insulin Detemir (Levemir) [Levemir] 20 unit SQ HS 30 Days #10 ml 04/29/21 Multivitamins, Thera [Multivitamin (formulary)] 1 tab PO DAILY 05/20/21 HYDROcodone/APAP 7.5-325MG [Longs 7.5-325] 1 tab PO Q6H PRN 30 Days #120 tab 07/17/21 Morphine Sulfate ER [Ms Contin] 15 mg PO Q12H 30 Days #60 tab 08/07/21 Naloxone HCl [Narcan] 4 mg NASAL ONCE PRN 08/29/21 Aspirin 81 mg PO DAILY 09/10/21 Cyclobenzaprine [Flexeril] 5 mg PO TID PRN 09/10/21 Seaonal Alg Med(Unk) 1 tab PO Q2D 09/10/21 Controlled Substance Measures - Controlled Substance Measures Is patient prescribed a controlled substance at discharge?: Yes When asked, does pt state using other controlled substances?: Yes If prescribed controlled substance>3 days was MAPS reviewed?: Yes If Rx opioid, was Start Talking consent form obtained?: Yes If opioid is for acute pain is fill amount 7 days or less?: Yes Was information provided regarding opioid addiction?: Yes
[2021-09-11 11:57] VITALS: BP 117/83; PULSE 102; RESP 18; TEMP 97.6
== END ==
LOC: PNWHC3 11:09
PROVIDERS: ATTEND Specialist
DX: M51.36 Other intervertebral disc degeneration, lumbar region (principal); M47.816 Spondylosis without myelopathy or radiculopathy, lumbar region; G89.29 Other chronic pain; F17.200 Nicotine dependence, unspecified, uncomplicated; Z88.8 Allergy status to other drugs, medicaments and biological substances; Z88.6 Allergy status to analgesic agent; Z91.018 Allergy to other foods
CPT/HCPCS: 80307; G0482; G0463; 99212

== ENCOUNTER 2021-10-07 19:28 | Emergency (ER) | payer OTHER, MEDICARE ==
[2021-10-07 19:40] VITALS: PULSE 114; TEMP 97.8
[2021-10-08] MEDS ORDERED: HYDROmorphone 0.5 MG/0.5 ML SYRINGE IVP STA ×2 (01:08→03:06)
[2021-10-08] MEDS ORDERED: ONDANSETRON 4 MG/2 ML VIAL IVP STA (01:08)
[2021-10-08] MEDS ORDERED: SODIUM CHLORIDE 0.9% 1,000 ML IV STA (01:08)
--- NOTE | 2021-10-08 01:13 | ED ---
General Adult HPI - General Chief complaint: Abdominal Pain Stated complaint: Poss kidney stone Time Seen by Provider: 10/08/21 00:39 Source: patient, RN notes reviewed Mode of arrival: ambulatory Limitations: no limitations - History of Present Illness Initial comments: 51-year-old female presents to the emergency Department with complaints of right flank pain and hematuria, onset September 18. Patient states she has seen by her PCP who ordered a CT to rule out kidney stone, but it is non-until . Patient reports the pain is intolerable. States she takes morphine and [place] at home for chronic back pain and has not gotten relief. Reports intermittent nausea as well. Denies painful urination. No fever, chills, headache, chest pain, shortness of breath, vomiting, diarrhea, or dysuria. - Related Data Home Medications Medication Instructions Recorded Confirmed Atorvastatin [Lipitor] 40 mg PO HS 03/26/21 09/11/21 Multivitamins, Thera [Multivitamin 1 tab PO DAILY 05/20/21 09/11/21 (formulary)] Naloxone HCl [Narcan] 4 mg NASAL ONCE PRN 08/29/21 09/11/21 Aspirin 81 mg PO DAILY 09/10/21 09/11/21 Seaonal Alg Med(Unk) 1 tab PO Q2D 09/10/21 09/11/21 Previous Rx's Medication Instructions Recorded Cholecalciferol [Vitamin D3 (25 25 mcg PO DAILY #30 tab 03/20/21 Mcg = 1000 Iu)] Clopidogrel [Plavix] 75 mg PO DAILY #30 tab 03/20/21 Melatonin 5 mg PO HS PRN #15 tablet 03/20/21 Omeprazole 20 mg PO HS #30 cap 03/20/21 lisinopriL [Zestril] 10 mg PO DAILY #30 tab 03/20/21 Docusate [Colace] 100 mg PO BID cap 04/29/21 Insulin Aspart [NovoLOG Flexpen] See Protocol SQ TID-W/MEALS PRN 04/29/21 #10 ml Insulin Detemir (Levemir) [Levemir] 20 unit SQ HS 30 Days #10 ml 04/29/21 Cyclobenzaprine [Flexeril] 5 mg PO TID PRN 30 Days #90 tab 09/11/21 HYDROcodone/APAP 7.5-325MG [[place] 1 tab PO Q6H PRN 30 Days #120 tab 09/11/21 7.5-325] HYDROcodone/APAP 7.5-325MG [[place] 1 tab PO Q6H PRN 30 Days #120 tab 09/11/21 7.5-325] Morphine Sulfate ER [Ms Contin] 15 mg PO Q12H 30 Days #60 tab 09/11/21 Morphine Sulfate ER [Ms Contin] 15 mg PO Q12HR 30 Days #60 tab 09/11/21 Phenazopyridine [Pyridium] 200 mg PO TID PRN #6 tablet 10/08/21 Sulfamethox-Tmp 800-160Mg [Bactrim 1 each PO Q12HR 10 Days #20 tab 10/08/21 Ds] Allergies Allergy/AdvReac Type Severity Reaction Status Date / Time raspberry Allergy Severe throat Verified 10/07/21 19:40 swelling, buprenorphine [From Suboxone] Allergy Swelling Verified 10/07/21 19:40 duloxetine [From Cymbalta] Allergy Confusion/s Verified 10/07/21 19:40 eizures gabapentin Allergy Swelling Verified 10/07/21 19:40 naloxone [From Suboxone] Allergy Swelling Verified 10/07/21 19:40 NSAIDS (Non-Steroidal Allergy Unknown Verified 10/07/21 19:40 Anti-Inflamma Childhood Review of Systems ROS Statement: Those systems with pertinent positive or pertinent negative responses have been documented in the HPI. ROS Other: All systems not noted in ROS Statement are negative. Past Medical History Past Medical History: Diabetes Mellitus Additional Past Medical History / Comment(s): Hx bowel obstruction, kidney stones. History of Any Multi-Drug Resistant Organisms: MRSA Date of last positivie culture/infection: 2012 MDRO Source:: stomach mesh Past Surgical History: Back Surgery, Bladder Surgery, Section, Cholecystectomy, Heart Catheterization With Stent, Hernia Repair, Hysterectomy, Orthopedic Surgery, Tonsillectomy Additional Past Surgical History / Comment(s): Ablation of lumbar nerve, COLONOSCOPY. Past Anesthesia/Blood Transfusion Reactions: No Reported Reaction Additional Past Anesthesia/Blood Transfusion Reaction / Comment(s): Clausterphobia. Date of Last Stent Placement:: 01/04/2021 Past Psychological History: Anxiety Smoking Status: Former smoker Past Alcohol Use History: None Reported Past Drug Use History: None Reported - Past Family History Mother Family Medical History: Cancer Additional Family Medical History / Comment(s): Mother had breast cancer and heart problems. Pt did not have much contact with her mother. Father Additional Family Medical History / Comment(s): Father at 42 yrs of age from agent orange exposure. General Exam Limitations: no limitations General appearance: alert, in distress (Well-developed, well-nourished female in moderate distress due to pain. Initial temperature 97.8, pulse 114, respirations 20, blood pressure 115/71, pulse ox 98% on room air.) ENT exam: Present: normal exam, normal oropharynx Respiratory exam: Present: normal lung sounds bilaterally. Absent: respiratory distress, wheezes, rales, rhonchi, stridor Cardiovascular Exam: Present: regular rate, normal rhythm, normal heart sounds. Absent: systolic murmur, diastolic murmur, rubs, gallop, clicks GI/Abdominal exam: Present: soft, normal bowel sounds. Absent: distended, tenderness, guarding, rebound, rigid Back exam: Present: CVA tenderness (R) Neurological exam: Present: alert, oriented X3, normal gait Psychiatric exam: Present: anxious Skin exam: Present: warm, dry, intact, normal color Course Vital Signs 10/07/21 10/08/21 19:37 03:00 Temperature 97.8 F Pulse Rate 114 H Respiratory 20 16 Rate Blood Pressure 115/71 120/70 O2 Sat by Pulse 98 Oximetry - Reevaluation(s) Reevaluation #1: 10/08/21 02:15 Upon reassessment, patient states her pain is beginning to improve. I did update her on results from laboratory studies and will start her on an antibiotic based on the results of her urinalysis. I suggested Levaquin, however patient declined all fluoroquinolones as her son had a severe reaction. She is agreeable to Rocephin. CT pending. 10/08/21 04:44 Patient is updated on results from her CT. She will be discharged home to follow up with her PCP. Discussed antibiotic options and patient is agreeable with this plan of care. Medical Decision Making - Medical Decision Making 51-year-old female with a past medical history of poorly controlled diabetes, kidney stones, and multiple abdominal hernias presents to emergency department with complaints of right flank pain and hematuria. Positive right sided CVA tenderness. Physical exam findings are otherwise unremarkable. Laboratory studies were reviewed. Patient is hyperglycemic with a glucose of 278. She was given a liter of IV fluids and is currently wearing a DexCom CGM. Encouraged to monitor her sugars more carefully. Urinalysis shows 4+ glucose, trace ketones, large blood, nitrite positive, large leukocyte esterase, 61 urine RBCs, and more than 182 urine WBCs. Patient was given a dose of Rocephin while present in the emergency department. Also given Dilaudid and Zofran for pain and nausea with improvement. She will be prescribed Bactrim and Pyridium. Close follow-up care is encouraged with her PCP. Return parameters were discussed in detail. Patient verbalized understanding and agreed with this plan. Attending: Jose. - Lab Data Result diagrams: 10/08/21 01:08 10/08/21 01:08 Lab Results 10/08/21 10/08/21 10/08/21 Range/Units 01:08 01:08 01:08 WBC 8.8 (3.8-10.6) k/uL RBC 5.15 (3.80-5.40) m/uL Hgb 14.0 (11.4-16.0) gm/dL Hct 42.6 (34.0-46.0) % MCV 82.8 (80.0-100.0) fL MCH 27.2 (25.0-35.0) pg MCHC 32.9 (31.0-37.0) g/dL RDW 14.4 (11.5-15.5) % Plt Count 248 (150-450) k/uL MPV 8.7 Neutrophils % 60 % Lymphocytes % 30 % Monocytes % 5 % Eosinophils % 3 % Basophils % 2 % Neutrophils # 5.3 (1.3-7.7) k/uL Lymphocytes # 2.6 (1.0-4.8) k/uL Monocytes # 0.4 (0-1.0) k/uL Eosinophils # 0.2 (0-0.7) k/uL Basophils # 0.1 (0-0.2) k/uL Sodium 132 L (137-145) mmol/L Potassium 4.0 (3.5-5.1) mmol/L Chloride 100 (98-107) mmol/L Carbon Dioxide 24 (22-30) mmol/L Anion Gap 8 mmol/L BUN 17 (7-17) mg/dL Creatinine 0.50 L (0.52-1.04) mg/dL Est GFR (CKD-EPI)AfAm >90 (>60 ml/min/1.73 sqM) Est GFR (CKD-EPI)NonAf >90 (>60 ml/min/1.73 sqM) Glucose 278 H (74-99) mg/dL Calcium 9.1 (8.4-10.2) mg/dL Total Bilirubin 0.3 (0.2-1.3) mg/dL AST 20 (14-36) U/L ALT 24 (4-34) U/L Alkaline Phosphatase 178 H (38-126) U/L Total Protein 7.0 (6.3-8.2) g/dL Albumin 4.3 (3.5-5.0) g/dL Urine Color Yellow Urine Appearance Cloudy H (Clear) Urine pH 5.5 (5.0-8.0) Ur Specific [place] 1.034 (1.001-1.035) Urine Protein 1+ H (Negative) Urine Glucose (UA) 4+ H (Negative) Urine Ketones Trace H (Negative) Urine Blood Large H (Negative) Urine Nitrite Positive H (Negative) Urine Bilirubin Negative (Negative) Urine Urobilinogen <2.0 (<2.0) mg/dL Ur Leukocyte Esterase Large H (Negative) Urine RBC 61 H (0-5) /hpf Urine WBC >182 H (0-5) /hpf Urine WBC Clumps Rare H (None) /hpf Ur Squamous Epith Cells 4 (0-4) /hpf Urine Bacteria Many H (None) /hpf - Radiology Data Radiology results: report reviewed, image reviewed CT of the abdomen and pelvis without contrast was obtained. Report was reviewed in its entirety. Impression per Dr. Denny is #1. Punctate nonobstructive nephrolithiasis in the inferior pole of the left kidney. No definite right- sided nephrolithiasis. No hydronephrosis or definite ureteral stones. No bladder calcifications. #2. No evidence for bowel obstruction. There are multiple ventral wall hernias containing the transverse colon and a few small bowel loops. The herniated bowel loops demonstrate no evidence for mucosal thickening or dilation. No free intraperitoneal fluid or pneumoperitoneum. Disposition Clinical Impression: Urinary tract infection Disposition: HOME SELF-CARE Condition: Stable Instructions (If sedation given, give patient instructions): Urinary Tract Infection in Women (ED) Additional Instructions: Increase intake of fluid. Continue your home medication regimen as prescribed. Take antibiotic as directed. Follow up with your PCP for a recheck in 48 hours. Return to the Emergency Department with any new, worsening, or concerning symptoms. Prescriptions: Sulfamethox-Tmp 800-160Mg [Bactrim Ds] 1 each PO Q12HR 10 Days #20 tab Phenazopyridine [Pyridium] 200 mg PO TID PRN #6 tablet PRN Reason: Pain/Discomfort Is patient prescribed a controlled substance at d/c from ED?: No Referrals: Jaison Brandon MD [Primary Care Provider] - 1-2 days Time of Disposition: 04:44
[2021-10-08 01:25] LABS: Basophils # (A) 0.1 k/uL (0-0.2); Basophils % (A) 2 %; Eosinophils # (A) 0.2 k/uL (0-0.7); Eosinophils % (A) 3 %; HCT 42.6 % (34.0-46.0); Lymphocytes # (A) 2.6 k/uL (1.0-4.8); Lymphocytes % (A) 30 %; MCH 27.2 pg (25.0-35.0); MCHC 32.9 g/dL (31.0-37.0); MCV 82.8 fL (80.0-100.0); Mean Platelet Volume 8.7; Monocytes # (A) 0.4 k/uL (0-1.0); Monocytes % (A) 5 %; Neutrophils # (A) 5.3 k/uL (1.3-7.7); Neutrophils % (A) 60 %; Platelet Count 248 k/uL (150-450); RBC 5.15 m/uL (3.80-5.40); RDW 14.4 % (11.5-15.5); WBC 8.8 k/uL (3.8-10.6)
[2021-10-08 01:35] LABS: ALT 24 U/L (4-34); AST 20 U/L (14-36); African American GFR (CKD) >90 (>60 ml/min/1.73 sqM); Albumin 4.3 g/dL (3.5-5.0); Alkaline Phosphatase 178 U/L (38-126); Anion Gap 8 mmol/L; Blood Urea Nitrogen 17 mg/dL (7-17); Calcium 9.1 mg/dL (8.4-10.2); Carbon Dioxide 24 mmol/L (22-30); Chloride 100 mmol/L (98-107); Glucose 278 mg/dL (74-99); Non-African American GFR(CKD) >90 (>60 ml/min/1.73 sqM); Sodium 132 mmol/L (137-145); Total Bilirubin 0.3 mg/dL (0.2-1.3)
[2021-10-08 01:54] LABS: Appearance,Urine Cloudy (Clear); Bacteria,Urine Many /hpf; Bilirubin,Urine Negative (Negative); Blood,Urine Large (Negative); Color,Urine Yellow; Glucose,Urine (UA) 4+ (Negative); Ketones,Urine Trace (Negative); Leukocyte Esterase,Urine Large (Negative); Nitrite,Urine Positive (Negative); PH, Urine 5.5 (5.0-8.0); Protein,Urine 1+ (Negative); RBC,Urine 61 /hpf (0-5); Specific Gravity,Urine 1.034 (1.001-1.035); Squamous Epithelial Cell,Urine 4 /hpf (0-4); Urobilinogen,Urine <2.0 mg/dL (<2.0); WBC,Urine >182 /hpf (0-5)
[2021-10-08] MEDS ORDERED: LEVOFLOXACIN 500MG-D5W PMX 500 MG in DEXTROSE/WATER 1 100ML.BAG IVPB STA (02:13)
[2021-10-08] MEDS ORDERED: cefTRIAXone IN SWFI 1,000 MG/10 ML SYRINGE IVP STA (02:20)
[2021-10-08 04:01] VITALS: BP 120/70; RESP 16
[2021-10-08] MEDS ORDERED: PHENAZOPYRIDINE 200 MG TAB PO STA (04:17)
--- NOTE | 2021-10-08 04:32 | CT ---
EXAM: CT Abdomen and Pelvis Without Intravenous Contrast CLINICAL HISTORY: ITS.REASON CT Reason: Rt Flank Pain, Hematuria TECHNIQUE: Axial computed tomography images of the abdomen and pelvis without intravenous contrast. CTDI is 22.2 mGy and DLP is 1100.4 mGy-cm. This CT exam was performed using one or more of the following dose reduction techniques: automated exposure control, adjustment of the mA and/or kV according to patient size, and/or use of iterative reconstruction technique. COMPARISON: 11/18/2018 FINDINGS: Lung bases: Unremarkable. No mass. No consolidation. ABDOMEN: Liver: Unremarkable. Gallbladder and bile ducts: Cholecystectomy. No evidence for biliary dilatation. Pancreas: Unremarkable. No ductal dilation. Spleen: Unremarkable. No splenomegaly. Adrenals: Unremarkable. No mass. Kidneys and ureters: Punctate nonobstructive nephrolithiasis in the inferior pole of the left kidney. No definite right sided nephrolithiasis. No hydronephrosis or definite ureteral stones. Presumed cortical cyst involving the inferolateral right kidney measuring 12 mm. Detailed evaluation limited. Stomach and bowel: No evidence for bowel obstruction. There are multiple ventral wall hernias containing the transverse colon and a few small bowel loops. The herniated bowel loops demonstrate no evidence for mucosal thickening or dilation. PELVIS: Appendix: A normal caliber appendix is suggested posterior to the ascending colon. Bladder: Unremarkable. No stones. Reproductive: Status post hysterectomy, stable.. ABDOMEN and PELVIS: Intraperitoneal space: Unremarkable. No free air. No significant fluid collection. Bones/joints: No acute fracture. No dislocation. Soft tissues: See above. In addition to the ventral wall hernias containing loops of bowel, there are additional fat-containing hernias noted in the supraumbilical region. Vasculature: Stable sclerotic calcification of the aorta and iliac arteries. There is a stent in the right external iliac artery, new from the previous examination. No abdominal aortic aneurysm. Lymph nodes: Unremarkable. No enlarged lymph nodes. IMPRESSION: 1. Punctate nonobstructive nephrolithiasis in the inferior pole of the left kidney. No definite right sided nephrolithiasis. No hydronephrosis or definite ureteral stones. No bladder calcifications. 2. No evidence for bowel obstruction. There are multiple ventral wall hernias containing the transverse colon and a few small bowel loops. The herniated bowel loops demonstrate no evidence for mucosal thickening or dilation. No free intraperitoneal fluid or pneumoperitoneum.
== END 2021-10-08 05:04 | disposition home or self-care (01) ==
LOC: EC 19:28
DX: N39.0 Urinary tract infection, site not specified (principal); E11.65 Type 2 diabetes mellitus with hyperglycemia; F41.9 Anxiety disorder, unspecified; Z87.891 Personal history of nicotine dependence; Z79.4 Long term (current) use of insulin; Z79.02 Long term (current) use of antithrombotics/antiplatelets; Z79.82 Long term (current) use of aspirin; Z79.899 Other long term (current) drug therapy
CPT/HCPCS: 36415; 80053; 85025; 81001; 87086; 87077; 87186; 74176; 99284; 96374; 96375 ×2; 96376; 96361; J2405; J0696; J1170

== ENCOUNTER → 2021-10-30 | Outpatient (CLI) | payer OTHER ==
--- NOTE | 2021-10-30 16:02 | XR ---
EXAMINATION TYPE: XR thoracic spine 3 views DATE OF EXAM: 10/30/2021 COMPARISON: NONE HISTORY: 51 year-old female M51.61, mid back pain TECHNIQUE: 3 views FINDINGS: Slight rightward tracheal shift. 12 rib bearing thoracic vertebral bodies. All pedicles are visualize d. Mild degenerative disc disease mid thoracic spine. Vertebral body heights are preserved and alignm ent is maintained. IMPRESSION: Osteopenia. Mild degenerative disc disease midthoracic spine. No vertebral compression collapse or ma lalignment. Slight rightward truncal shift could be positional or due to muscle spasm.
== END | disposition home or self-care (01) ==
LOC: RADXRMAIN 10:43
PROVIDERS: ATTEND Physician Assistant Medical
DX: M51.34 Other intervertebral disc degeneration, thoracic region (principal)
CPT/HCPCS: 72070

== ENCOUNTER → 2021-10-30 | Outpatient (CLI) | payer OTHER ==
[2021-10-30 14:59] LABS: Basophils # (A) 0.06 X 10*3/uL (0.00-0.10); Basophils % (A) 0.7 %; Eosinophils # (A) 0.23 X 10*3/uL (0.04-0.35); Eosinophils % (A) 2.6 %; HCT 42.3 % (37.2-46.3); HGB 12.9 g/dL (12.0-15.0); Immature Grans, Automated 0.2 %; Lymphocytes # (A) 2.28 X 10*3/uL (0.90-5.00); MCH 25.7 pg (27.0-32.0); MCHC 30.5 g/dL (32.0-37.0); MCV 84.4 fL (80.0-97.0); Mean Platelet Volume 11.4 fL (9.5-12.2); Monocytes # (A) 0.65 X 10*3/uL (0.20-1.00); Monocytes % (A) 7.4 %; NRBC Per 100 WBC 0 /100 WBCS (0.0-0.0); Neutrophils # (A) 5.53 X 10*3/uL (1.80-7.70); Neutrophils % (A) 63.1 %; Platelet Count 238 X 10*3/uL (140-440); RBC 5.01 X 10*6/uL (4.10-5.20); RDW 14.2 % (11.5-14.5); WBC 8.77 X 10*3/uL (4.50-10.00)
[2021-10-30 16:22] LABS: Anion Gap 14.5 mmol/L (10.00-18.00); Blood Urea Nitrogen 12.8 mg/dL (9.0-27.0); Carbon Dioxide 23.5 mmol/L (20.0-27.5); Non-African American GFR(CKD) 111.3 (60.0-200.0); Potassium 4.3 mmol/L (3.5-5.5)
== END | disposition home or self-care (01) ==
LOC: LABPAT 11:11
PROVIDERS: ATTEND Surgery
DX: Z01.812 Encounter for preprocedural laboratory examination (principal); I73.9 Peripheral vascular disease, unspecified
CPT/HCPCS: 80051; 82565; 84520; 85025

== ENCOUNTER → 2021-11-06 | Outpatient (CLI) | payer OTHER ==
[2021-11-06 09:57] VITALS: BP 155/87; PULSE 100; RESP 18; TEMP 98.3
--- NOTE | 2021-11-06 15:26 | P.PAINPG ---
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 Pain level is currently at 6/10 in intensity, constant, localized in the mid to lower lumbar spine, stabbing/ achy/ sharp/ shooting towards . Pain is provoked by weight bearing activities. Pain is alleviated with PT in 2012 but stopped due to hernia issues, heat, ice, topicals, use of a cane for ambulation, medications (Cov[place], MS ER, lidoderm), laying supine w BLEs elevated, repositioning and rest. Completed thoracic x rays. Results reviewed with pt. Pain is mid back, 6/10 in intensity, constant, sore & achy in character without radiation of pain. Will need MRI without contrast to check on the integrity of the disks. Interventional pain procedures completed include BL RFA L3-L5 Patient is currently on [place], Morphine Sulfate, lidoderm Patient denies any side effects of the medication(s), denies excessive drowsiness or sleepiness, denies suicidal ideation and reports that the current pain medication is helping to control the pain and improve activities of daily living. Patient denies any motor or sensory deficits. Patient denies any fever or night sweats, denies any change in the bowel movements or urination. Physical Examination: -Constitutional: Cooperative. Not in acute distress . - Neurologic: Cranial nerve II to XII intact. No focal neurological deficits. - Psychatric: Alert & oriented x 3. Matching mood & appropriate affect. Judgment and insight intact. - Musculoskeletal: Cervical spine: Muscle bulk/ tone/ strength in the bilateral upper extremities normal Vertebral body tenderness to palpation over [place] test positive Distraction test positive Facet loading test positive Thoracic spine Muscle bulk / tone/ strength in the bilateral paraspinal muscles normal Vertebral body tender to palpation over T10 Facet loading test positive Lumbar spine: Motor bulk/ tone/ strength lower extremities , thigh and legs : 5/5 Deep tendon reflexes : Normal Knee Jerk. Normal Ankle Jerk . Vertebral body tenderness to palpation over Lumbar Facet Loading Test positive Straight Leg Raise: positive at 30 degrees right side/ left side Gaenslen's Test positive Sacral spine : Severe tenderness over the Sacroiliac joint: right side / left side Range of motion: Flexion of the lumbar spine <60 degrees Range of motion: Extension of the lumbar spine <20 degrees Gaenslen's Test positive Franki's Test positive Gato test: positive right side / left side Thigh Thrust Test Sacral Thrust Test Assessment and plan: Chronic mid to low back pain secondary to degenerative disc disease , spondylosis with facet arthropathy without myelopathy MRI of the thoracic spine without contrast re: M51.34 Chronic and current use of high-risk medication (Opioids). The patient was counseled about risk of opioid use, psychological risk associated with opioids and was orally counseled to not overuse , divert or sell medications. Pt is to store medication in a safe location. The patient is counseled against driving while using narcotic medications and also not to use alcohol or any illicit recreational drugs. Patient verbalized understanding that the lack of compliance will result in failure to renew narcotic prescription(s) as well as possible discharge from the clinic Diagnoses, prognosis and treatment options including but not limited to physical therapy, surgical interventions, interventional therapies and medication management including narcotics and adjuvant medication were discussed. All patient questions answered MAPS reviewed and it was appropriate. UDS from 09/11/21 reviewed and consistent Prescription refill for [place] 7.5/325mg #120, MS ER 15mg #60, Lidoderm #30 w 1 refill I have spent less than 30 minutes on patient care today. Dr Ashton was available by phone for the evaluation of this patient. The time was used to review the medical records including relevant urine studies and Prescription history (MAPs), review of the available imaging, evaluation and examination of the patient, coordination of care with the medical staff and if applicable referring physicians, as well as creation of the medical record - Pain Location Bilateral Lower Back Non-Pharmacological Interventions: Heat, Ice, Inactivity, Position/Reposition Pharmacological Interventions: Scheduled Medication, Topical Medication PQRS Narrative: Smoking Status Current every day smoker Narcotic Agreement Date Signed 03/27/21 Hx Alcohol Use (MH) Yes Home Medications: Ambulatory Orders Cholecalciferol [Vitamin D3 (25 Mcg = 1000 Iu)] 25 mcg PO DAILY #30 tab 03/20/21 Clopidogrel [Plavix] 75 mg PO DAILY #30 tab 03/20/21 Melatonin 5 mg PO HS PRN #15 tablet 03/20/21 Omeprazole 20 mg PO HS #30 cap 03/20/21 lisinopriL [Zestril] 10 mg PO DAILY #30 tab 03/20/21 Atorvastatin [Lipitor] 40 mg PO HS 03/26/21 Docusate [Colace] 100 mg PO BID cap 04/29/21 Insulin Aspart [NovoLOG Flexpen] See Protocol SQ TID-W/MEALS PRN #10 ml 04/29/21 Insulin Detemir (Levemir) [Levemir] 20 unit SQ HS 30 Days #10 ml 04/29/21 Multivitamins, Thera [Multivitamin (formulary)] 1 tab PO DAILY 05/20/21 Naloxone HCl [Narcan] 4 mg NASAL ONCE PRN 08/29/21 Aspirin 81 mg PO DAILY 09/10/21 Seaonal Alg Med(Unk) 1 tab PO Q2D 09/10/21 Cyclobenzaprine [Flexeril] 5 mg PO TID PRN 30 Days #90 tab 09/11/21 Phenazopyridine [Pyridium] 200 mg PO TID PRN #6 tablet 10/08/21 Sulfamethox-Tmp 800-160Mg [Bactrim Ds] 1 each PO Q12HR 10 Days #20 tab 10/08/21 HYDROcodone/APAP 7.5-325MG [[place] 7.5-325] 1 tab PO Q6H PRN 30 Days #120 tab 11/06/21 HYDROcodone/APAP 7.5-325MG [[place] 7.5-325] 1 tab PO Q6H PRN 30 Days #120 tab 11/06/21 Morphine Sulfate ER [Ms Contin] 15 mg PO Q12H 30 Days #60 tab 11/06/21 Morphine Sulfate ER [Ms Contin] 15 mg PO Q12HR 30 Days #60 tab 11/06/21 Controlled Substance Measures - Controlled Substance Measures Is patient prescribed a controlled substance at discharge?: Yes When asked, does pt state using other controlled substances?: Yes If prescribed controlled substance>3 days was MAPS reviewed?: Yes If Rx opioid, was Start Talking consent form obtained?: Yes Was information provided regarding opioid addiction?: Yes
== END ==
LOC: PNWHC3 09:31
PROVIDERS: ATTEND Specialist
DX: G89.29 Other chronic pain (principal); M51.36 Other intervertebral disc degeneration, lumbar region; M47.816 Spondylosis without myelopathy or radiculopathy, lumbar region; F17.200 Nicotine dependence, unspecified, uncomplicated; Z79.891 Long term (current) use of opiate analgesic; Z91.018 Allergy to other foods; Z88.6 Allergy status to analgesic agent; Z88.5 Allergy status to narcotic agent; Z88.8 Allergy status to other drugs, medicaments and biological substances
CPT/HCPCS: 99211

== ENCOUNTER → 2021-11-22 | Day surgery (SDC) | payer OTHER ==
[2021-11-21 09:13] VITALS: BMI 36.6
[~2021-11-22] MED LIST changes: +ALPRAZolam 0.25 MG TAB PO PRN; +HYDROcodone/APAP 7.5-325MG 1 EACH TAB ONE; +INSULIN ASPART (NovoLOG) 100 UNIT/ML VIAL SQ ONE; +INSULIN ASPART (NovoLOG) 100 UNIT/ML VIAL SQ SCH; +IOPAMIDOL-250 100ML BTL INTRAARTER ONE; -LACTATED RINGERS 1,000 ML IV SCH; -LIDOCAINE 1% (10MG/ML) FOR IV START INTRADERMA PRN; +LIDOCAINE 1% INJ 10MG/ML (30 ML VIAL-PF) SQ ONE; +MIDAZOLAM 2 MG/2 ML VIAL IV ONE; +SODIUM CHLORIDE 0.9% 1,000 ML IV ONE; +SODIUM CHLORIDE 0.9% 1,000 ML in EMPTY BAG 1 BAG IV ONE; +VERAPAMIL 2.5 MG/ML 2 ML AMP ONE; +VERAPAMIL SYRINGE (5 MG/10 ML) INTRAARTER ONE; +fentaNYL (PF) 50 MCG/ML 2 ML AMP ONE
[2021-11-22 09:16] VITALS: RESP 16; TEMP 98.2
[2021-11-22 09:26] LABS: Glucose,Whole Blood 290 mg/dL (70-110)
[2021-11-22] MEDS: fentaNYL (PF) 50 MCG/ML 2 ML AMP IV ONE ×2 (10:42→10:49)
--- NOTE | 2021-11-22 11:12 | P.OP ---
Date of Procedure: 11/22/21 Description of Procedure: 0Preoperative diagnosis: [Lavon 3 severe peripheral arterial disease Previous right femoral endarterectomy, thrombectomy, iliac and superficial femoral artery stent] Postoperative diagnosis: Same Procedure: [Left radial artery access with ultrasound guidance Aortogram with runoff 22 minutes of moderate sedation] Surgeon: Georgie Byrne D.O. EBL: [Less than 10 mL] IV fluids: [See records] Urine output: [Not measured] Drains: [None] Complications: [None immediately apparent] Condition: [Stable to recovery] Operative indication and findings: [Patient is a 49-year-old female who previously had subacute occlusion of her right femoral artery and underwent a right femoral thromboendarterectomy, patch angioplasty, external iliac stent as well as superficial femoral artery stent. She is beginning to have pain in her right lower extremity which is apart from her radiculopathy pain. Her imaging showed a decrease in her ANDI on the right lower side therefore an angiogram was performed. Risks and benefits were discussed. She seems understood and was willing to proceed] Procedure in detail: [Patient seen the special suite and placed in supine position. The bilateral groins and left radial artery were prepped and draped in usual sterile fashion. Procedure timeout was performed, all parties are in agreement. Using ultrasound, the left radial artery was identified. The skin overlying was anesthetized with 1% lidocaine plain. The micro-access needle was used and the artery was cannulated and Seldinger technique was used to place a radial sheath. Catheters wires were used access the aorta. An aortogram was performed. The catheter was advanced and the level of bifurcation and bilateral lower extremity runoffs were performed. Catheters and wires removed. The sheath was removed and a TR band was placed. Angiogram findings the aorta appeared normal in course and caliber. Bilateral common iliac arteries appear patent without significant disease. On the right previously placed external iliac stent is patent but has severe stenosis with intimal hyperplasia throughout. The internal iliac artery appears patent. On the left the internal iliac artery appears patent, there is a 6 severe stenosis of the proximal external iliac artery. The common femoral arteries bilaterally appear patent. There is evidence of previous endarterectomy on the right. Th profundus arteries are patent bilaterally. On the right there is a high-grade stenosis of the proximal superficial femoral artery via the previously placed stent. There are multiple areas of stenosis throughout the stent including with full occlusion at the attic canal and reconstitution at the distal superficial femoral artery. The left superficial femoral artery takeoff with reconstitution of the above-knee superficial femoral artery, proximal popliteal artery. The below-knee popliteal artery is patent vestibular disease bilaterally. The anterior tibial arteries appear patent but diminutive. The tibial peroneal trunk and peroneal arteries appear patent, there is a very diminutive posterior tibial artery. There appear to be 2 arteries at the ankle, likely peroneal and the anterior tibial.] Plan - Discharge Summary Discharge Rx Participant: Yes New Discharge Prescriptions: No Action Clopidogrel [Plavix] 75 mg PO DAILY #30 tab Atorvastatin [Lipitor] 40 mg PO HS Docusate [Colace] 100 mg PO BID cap Insulin Aspart [NovoLOG Flexpen] See Protocol SQ TID-W/MEALS PRN #10 ml PRN Reason: Blood Sugar - High Aspirin 81 mg PO DAILY Seaonal Alg Med(Unk) 1 tab PO Q2D Insulin Glargine [Lantus Vial] 26 unit SQ HS Morphine Sulfate ER [Ms Contin] 15 mg PO Q12H Melatonin 5 mg PO HS PRN #15 tablet PRN Reason: Insomnia Omeprazole 20 mg PO HS #30 cap Cholecalciferol [Vitamin D3 (25 Mcg = 1000 Iu)] 25 mcg PO DAILY #30 tab lisinopriL [Zestril] 10 mg PO DAILY #30 tab Multivitamins, Thera [Multivitamin (formulary)] 1 tab PO DAILY Naloxone HCl [Narcan] 4 mg NASAL ONCE PRN PRN Reason: Sedation,OVERDOSE Cyclobenzaprine [Flexeril] 5 mg PO TID PRN 30 Days #90 tab PRN Reason: Muscle Spasm HYDROcodone/APAP 7.5-325MG [[place] 7.5-325] 1 tab PO Q6H PRN 30 Days #120 tab PRN Reason: Pain Discharge Medication List Cholecalciferol [Vitamin D3 (25 Mcg = 1000 Iu)] 25 mcg PO DAILY #30 tab 03/20/21 [Rx] Clopidogrel [Plavix] 75 mg PO DAILY #30 tab 03/20/21 [Rx] Melatonin 5 mg PO HS PRN #15 tablet 03/20/21 [Rx] Omeprazole 20 mg PO HS #30 cap 03/20/21 [Rx] lisinopriL [Zestril] 10 mg PO DAILY #30 tab 03/20/21 [Rx] Atorvastatin [Lipitor] 40 mg PO HS 03/26/21 [History] Docusate [Colace] 100 mg PO BID cap 04/29/21 [Rx] Insulin Aspart [NovoLOG Flexpen] See Protocol SQ TID-W/MEALS PRN #10 ml 04/29/21 [Rx] Multivitamins, Thera [Multivitamin (formulary)] 1 tab PO DAILY 05/20/21 [History] Naloxone HCl [Narcan] 4 mg NASAL ONCE PRN 08/29/21 [History] Aspirin 81 mg PO DAILY 09/10/21 [History] Seaonal Alg Med(Unk) 1 tab PO Q2D 09/10/21 [History] Cyclobenzaprine [Flexeril] 5 mg PO TID PRN 30 Days #90 tab 09/11/21 [Rx] HYDROcodone/APAP 7.5-325MG [[place] 7.5-325] 1 tab PO Q6H PRN 30 Days #120 tab 11/06/21 [Rx] Insulin Glargine [Lantus Vial] 26 unit SQ HS 11/21/21 [History] Morphine Sulfate ER [Ms Contin] 15 mg PO Q12H 11/21/21 [History] Follow up Appointment(s)/Referral(s): Georgie Byrne DO [STAFF PHYSICIAN] - 1 Week Patient Instructions/Handouts: Angiogram (DC) Activity/Diet/Wound Care/Special Instructions: NO METFORMIN FOR 48 HOURS. OK TO SHOWER TOMORROW, NO BATHS/SWIMMING/WASHING DISHES/SOAKING WRIST FOR 5 DAYS TO PREVENT INFECTION. SIGNS OF INFECTION IE: FEVER, RASH, SWELLING, CHANGES IN FEELING TO HAND/ARM (NUMBNESS/PAIN) CONTACT TO DOCTOR FOR FURTHER INSTRUCTIONS. IF HEAVY BLEEDING FROM PUNCTURE SITE, HOLD FIRM DIRECT PRESSURE AND RETURN TO ER.
[2021-11-22 11:17] LABS: Glucose,Whole Blood 250 mg/dL (70-110)
[2021-11-22 13:44] VITALS: BP 142/78
[2021-11-22 14:30] VITALS: PULSE 88
--- NOTE | 2021-11-22 14:44 | IR ---
Fluoroscopy HISTORY: Pain in right leg 1.7 minutes fluoroscopy time supplied to the referring clinician. 207 intraoperative C-arm images do cument the procedure. See dictated report from vascular surgery.
== END | disposition home or self-care (01) ==
LOC: CATHCVL 08:49
PROVIDERS: ATTEND Surgery
DX: I70.213 Atherosclerosis of native arteries of extremities with intermittent claudication, bilateral legs (principal); E11.51 Type 2 diabetes mellitus with diabetic peripheral angiopathy without gangrene; K21.9 Gastro-esophageal reflux disease without esophagitis; I10 Essential (primary) hypertension
CPT/HCPCS: 36200; 75625; 75716; 76937; C1769; C1894; J2250; J2001; J3010; Q9966

== ENCOUNTER → 2022-01-01 | Outpatient (CLI) | payer OTHER ==
[2022-01-01 11:50] VITALS: BP 149/81; PULSE 93; RESP 18; TEMP 98.2
--- NOTE | 2022-01-01 14:11 | P.PAINPG ---
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 Pain level is currently at 6/10 in intensity, constant, mid back, dull in character w shooting towards the RLE. Pain is provoked by chiropractic treatments in 2009. Pain is alleviated with medications, topicals, home stretching regimen, heat, ice, repositioning and rest. Interventional pain procedures completed include BL RFA L3-L5 Patient is currently on MS ER 15mg #60, [place] 7.5/325mg #120, Flexeril Patient denies any side effects of the medication(s), denies excessive drowsiness or sleepiness, denies suicidal ideation and reports that the current pain medication is helping to control the pain and improve activities of daily living. Patient denies any motor or sensory deficits. Patient denies any fever or night sweats, denies any change in the bowel movements or urination. Physical Examination: -Constitutional: Cooperative. Not in acute distress . - Neurologic: Cranial nerve II to XII intact. No focal neurological deficits. - Psychatric: Alert & oriented x 3. Matching mood & appropriate affect. Judgment and insight intact. - Musculoskeletal: Cervical spine: Muscle bulk/ tone/ strength in the bilateral upper extremities normal Vertebral body tenderness to palpation over Spurling test positive Distraction test positive Facet loading test positive Thoracic spine Muscle bulk / tone/ strength in the bilateral paraspinal muscles normal Vertebral body tender to palpation over T8 Facet loading test positive Lumbar spine: Motor bulk/ tone/ strength lower extremities , thigh and legs : 5/5 Deep tendon reflexes : Normal Knee Jerk. Normal Ankle Jerk . Vertebral body tenderness to palpation over Lumbar Facet Loading Test positive Straight Leg Raise: positive at 30 degrees right side/ left side Gaenslen's Test positive Sacral spine : Severe tenderness over the Sacroiliac joint: right side / left side Range of motion: Flexion of the lumbar spine <60 degrees Range of motion: Extension of the lumbar spine <20 degrees Gaenslen's Test positive Franki's Test positive Gato test: positive right side / left side Thigh Thrust Test Sacral Thrust Test Imaging: MRI without contrast of the thoracic spine from 11/15/21 reviewed Assessment and plan: Chronic mid to low back pain secondary to lumbar degenerative disc disease , lumbar spondylosis with facet arthropathy without myelopathy Recommendation of YESSENIA T7-8. May need a series, up to 3 within a 6 mo period, for optimal pain relief. Risks, benefits of procedure discussed and pt verbalized understanding. Denies anticoagulant use or medical history of diabetes. Chronic and current use of high-risk medication (Opioids). The patient was counseled about risk of opioid use, psychological risk associated with opioids and was orally counseled to not overuse , divert or sell medications. Pt is to store medication in a safe location. The patient is counseled against driving while using narcotic medications and also not to use alcohol or any illicit recreational drugs. Patient verbalized understanding that the lack of compliance will result in failure to renew narcotic prescription(s) as well as possible discharge from the clinic Diagnoses, prognosis and treatment options including but not limited to physical therapy, surgical interventions, interventional therapies and medication management including narcotics and adjuvant medication were discussed. All patient questions answered MAPS reviewed and it was appropriate. UDS 09/11/21 reviewed, consistent Prescription refill for MS ER 15mg #60, [place] 7.5/325mg #120 w 1 RF I have spent less than 30 minutes on patient care today. Dr Ashton was available by phone for the evaluation of this patient. The time was used to review the medical records including relevant urine studies and Prescription history (MAPs), review of the available imaging, evaluation and examination of the patient, coordination of care with the medical staff and if applicable referring physicians, as well as creation of the medical record - Pain Location Bilateral Back Non-Pharmacological Interventions: Heat, Home Exercise, Ice, Inactivity, Physical Therapy, Sitting, Stretching Pharmacological Interventions: Block, Epidural, Scheduled Medication, Topical Medication PQRS Narrative: Smoking Status Current every day smoker Narcotic Agreement Date Signed 03/27/21 Hx Alcohol Use (MH) Yes Home Medications: Ambulatory Orders Cholecalciferol [Vitamin D3 (25 Mcg = 1000 Iu)] 25 mcg PO DAILY #30 tab 03/20/21 Clopidogrel [Plavix] 75 mg PO DAILY #30 tab 03/20/21 Melatonin 5 mg PO HS PRN #15 tablet 03/20/21 Omeprazole 20 mg PO HS #30 cap 03/20/21 lisinopriL [Zestril] 10 mg PO DAILY #30 tab 03/20/21 Atorvastatin [Lipitor] 40 mg PO HS 03/26/21 Docusate [Colace] 100 mg PO BID cap 04/29/21 Insulin Aspart [NovoLOG Flexpen] See Protocol SQ TID-W/MEALS PRN #10 ml 04/29/21 Multivitamins, Thera [Multivitamin (formulary)] 1 tab PO DAILY 05/20/21 Naloxone HCl [Narcan] 4 mg NASAL ONCE PRN 08/29/21 Aspirin 81 mg PO DAILY 09/10/21 Seaonal Alg Med(Unk) 1 tab PO Q2D 09/10/21 Cyclobenzaprine [Flexeril] 5 mg PO TID PRN 30 Days #90 tab 09/11/21 HYDROcodone/APAP 7.5-325MG [[place] 7.5-325] 1 tab PO Q6H PRN 30 Days #120 tab 11/06/21 Insulin Glargine [Lantus Vial] 26 unit SQ HS 11/21/21 Morphine Sulfate ER [Ms Contin] 15 mg PO Q12H 11/21/21 Controlled Substance Measures - Controlled Substance Measures Is patient prescribed a controlled substance at discharge?: Yes When asked, does pt state using other controlled substances?: Yes If prescribed controlled substance>3 days was MAPS reviewed?: Yes If Rx opioid, was Start Talking consent form obtained?: Yes Was information provided regarding opioid addiction?: Yes
== END ==
LOC: PNWHC3 10:48
PROVIDERS: ATTEND Specialist
DX: M51.36 Other intervertebral disc degeneration, lumbar region (principal); M47.816 Spondylosis without myelopathy or radiculopathy, lumbar region; F17.200 Nicotine dependence, unspecified, uncomplicated; F10.90 Alcohol use, unspecified, uncomplicated; Z91.018 Allergy to other foods; Z88.8 Allergy status to other drugs, medicaments and biological substances; Z88.6 Allergy status to analgesic agent
CPT/HCPCS: 99211

== ENCOUNTER → 2022-02-26 | Outpatient (CLI) | payer OTHER ==
[2022-02-26 11:08] VITALS: BP 150/63; PULSE 88; RESP 16; TEMP 98.4
--- NOTE | 2022-02-26 14:44 | P.PAINPG ---
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 Pain level is currently at 6 /10 in intensity, constant, mid lumbar spine spasm-like in character w shooting towards the R glutes. Pain is provoked by standing/ walking for periods of 20 min or more. Pain is alleviated with heat, ice, topicals, use of a wheelchair for ambulation, home exercise regimen as tolerated, repositioning and rest. Interventional pain procedures completed include BL RFA L3-L5 Patient is currently on MS ER, [place] , Flexeril Patient denies any side effects of the medication(s), denies excessive drowsiness or sleepiness, denies suicidal ideation and reports that the current pain medication is helping to control the pain and improve activities of daily living. Patient denies any motor or sensory deficits. Patient denies any fever or night sweats, denies any change in the bowel movements or urination. Physical Examination: -Constitutional: Cooperative. Not in acute distress . - Neurologic: Cranial nerve II to XII intact. No focal neurological deficits. - Psychatric: Alert & oriented x 3. Matching mood & appropriate affect. Judgment and insight intact. - Musculoskeletal: Cervical spine: Muscle bulk/ tone/ strength in the bilateral upper extremities normal Vertebral body tenderness to palpation over Spurling test positive Distraction test positive Facet loading test positive Thoracic spine Muscle bulk / tone/ strength in the bilateral paraspinal muscles normal Vertebral body tender to palpation over Facet loading test positive Lumbar spine: Motor bulk/ tone/ strength lower extremities , thigh and legs : 5/5 Deep tendon reflexes : Normal Knee Jerk. Normal Ankle Jerk . Vertebral body tenderness to palpation over L2, L3, L4 Lumbar Facet Loading Test positive Straight Leg Raise: positive at 30 degrees right side/ left side Gaenslen's Test positive Sacral spine : Severe tenderness over the Sacroiliac joint: right side / left side Range of motion: Flexion of the lumbar spine <60 degrees Range of motion: Extension of the lumbar spine <20 degrees Gaenslen's Test positive Gato test: positive right side / left side Thigh Thrust Test Sacral Thrust Test Assessment and plan: Chronic low back pain secondary to lumbar degenerative disc disease, spondylosis with facet arthropathy without myelopathy Chronic and current use of high-risk medication (Opioids). The patient was counseled about risk of opioid use, psychological risk associated with opioids and was orally counseled to not overuse , divert or sell medications. Pt is to store medication in a safe location. The patient is counseled against driving while using narcotic medications and also not to use alcohol or any illicit recreational drugs. Patient verbalized understanding that the lack of compliance will result in failure to renew narcotic prescription(s) as well as possible discharge from the clinic Diagnoses, prognosis and treatment options including but not limited to physical therapy, surgical interventions, interventional therapies and medication management including narcotics and adjuvant medication were discussed. All patient questions answered MAPS reviewed and it was appropriate. UDS from 09/11/21 reviewed and consistent Prescription refill for MS ER 15mg #60, [place] 7.5/325mg #120, Flexeril w 1 RF I have spent less than 30 minutes on patient care today. Dr Ashton was available by phone for the evaluation of this patient. The time was used to review the medical records including relevant urine studies and Prescription history (MAPs), review of the available imaging, evaluation and examination of the patient, coordination of care with the medical staff and if applicable re [facility] physicians, as well as creation of the medical record - Pain Location Back Non-Pharmacological Interventions: Heat, Home Exercise, Ice, Inactivity, Position/Reposition, Stretching Pharmacological Interventions: PRN Medication, Scheduled Medication, Topical Medication PQRS Narrative: Smoking Status Current every day smoker Narcotic Agreement Date Signed 03/27/21 Blood Pressure 150/63 Pain Intensity [Back] 6 Scale Used Numeric (1 - 10) Hx Alcohol Use (MH) Yes Home Medications: Ambulatory Orders Cholecalciferol [Vitamin D3 (25 Mcg = 1000 Iu)] 25 mcg PO DAILY #30 tab 03/20/21 Melatonin 5 mg PO HS PRN #15 tablet 03/20/21 Omeprazole 20 mg PO HS #30 cap 03/20/21 lisinopriL [Zestril] 10 mg PO DAILY #30 tab 03/20/21 Atorvastatin [Lipitor] 40 mg PO HS 03/26/21 Docusate [Colace] 100 mg PO BID cap 04/29/21 Insulin Aspart [NovoLOG Flexpen] See Protocol SQ TID-W/MEALS PRN #10 ml 04/29/21 Multivitamins, Thera [Multivitamin (formulary)] 1 tab PO DAILY 05/20/21 Naloxone HCl [Narcan] 4 mg NASAL ONCE PRN 08/29/21 Aspirin 81 mg PO DAILY 09/10/21 Seaonal Alg Med(Unk) 1 tab PO Q2D 09/10/21 Insulin Glargine [Lantus Vial] 26 unit SQ HS 11/21/21 Cephalexin [Keflex] 500 mg PO Q12HR 10 Days #20 cap 01/03/22 Pregabalin [Lyrica] 75 mg PO BID 30 Days #60 cap 01/03/22 Ticagrelor [Brilinta] 90 mg PO BID #60 tab 01/03/22 Cyclobenzaprine [Flexeril] 5 mg PO TID PRN 30 Days #90 tab 02/26/22 HYDROcodone/APAP 7.5-325MG [[place] 7.5-325] 1 tab PO Q6H PRN 3 Days #120 tab 02/26/22 HYDROcodone/APAP 7.5-325MG [[place] 7.5-325] 1 tab PO Q6H PRN 30 Days #120 tab 02/26/22 Morphine Sulfate ER [Ms Contin] 15 mg PO Q12H 30 Days #60 tab 02/26/22 Morphine Sulfate ER [Ms Contin] 15 mg PO Q12H 30 Days #60 tab 02/26/22 Controlled Substance Measures - Controlled Substance Measures Is patient prescribed a controlled substance at discharge?: Yes When asked, does pt state using other controlled substances?: Yes If prescribed controlled substance>3 days was MAPS reviewed?: Yes If Rx opioid, was Start Talking consent form obtained?: Yes Was information provided regarding opioid addiction?: Yes
== END ==
LOC: PNWHC3 10:44
PROVIDERS: ATTEND Specialist
DX: M47.816 Spondylosis without myelopathy or radiculopathy, lumbar region (principal); M51.36 Other intervertebral disc degeneration, lumbar region; G89.29 Other chronic pain; Z79.891 Long term (current) use of opiate analgesic; Z91.018 Allergy to other foods; Z88.6 Allergy status to analgesic agent; F17.200 Nicotine dependence, unspecified, uncomplicated
CPT/HCPCS: 99211

== ENCOUNTER → 2022-03-18 | Outpatient (CLI) | payer OTHER ==
--- NOTE | 2022-03-18 15:05 | BD ---
EXAMINATION TYPE: Axial Bone Density DATE OF EXAM: 03/18/2022 COMPARISON: NONE CLINICAL HISTORY: 51 year old Female. ICD-10 CODE: Z78.0 POST MENOPAUSAL Height: 66 Weight: 220 FRAX RISK QUESTIONS: Alcohol (3 or more units per day): no Family History (Parent hip fracture): no Glucocorticoids (More than 3mos): no (Ex: prednisone, prednisolone, methylprednisolone, dexamethasone, and hydrocortisone). History of Fracture in Adulthood: no Secondary Osteoporosis: 1. Type 1 Diabetes: no 2. Hyperthyroidism: no 3. Menopause before 45: yes 4. Malnutrition: no 5. Chronic liver disease: no Rheumatoid Arthritis: no Current Tobacco Use: no RISK FACTORS HISTORY OF: Surgery to Spine/Hip(right/left)/Wrist (right/left): laminectomy lumbar spine When: 2006 Family History of Osteoporosis: no Active: no Diet low in dairy products/other sources of calcium: no Postmenopausal woman: yes Lost more than 2 inches in height since high school: yes MEDICATIONS: Additional History: EXAM MEASUREMENTS: Bone mineral densitometry was performed using the [employer] System. Bone mineral density about the R hip (g/cm2): 0.704 Bone mineral density about the L hip (g/cm2): 0.762 T Score values are as follows: -----R Neck: -2.4 -----L Neck: -2.0 -----R Total: -2.5 -----L Total: -1.9 Bone mineral density : baseline Bone mineral density about the L Wrist (g/cm2): 0.592 T Score values are as follows: -----Dist. R+U: -2.4 -----Prox. R+U: -0.3 -----Radius total: -1.4 Bone mineral density : baseline FRAX%s: The graph provided illustrates a 7.2% chance for a major osteoporotic fx and a 1.3% chance fo r the hips probability for fx in 10 years time. IMPRESSION: Osteopenia (T Score between -2.5 and -1). There is slightly increased risk of fracture and the patient may be considered for treatment. Re-Screen 2-5 years. NOTE: T-SCORE=SD OF THE YOUNG ADULT MEAN.
--- NOTE | 2022-03-19 18:00 | MM ---
Reason for Exam: Screening (asymptomatic). Last mammogram was performed 6 year(s) and 2 month(s) ago. Patient History: Menarche at age 8. First Full-Term at age 24. Left ovary removed at age 31. Right ovary removed at age 31. Hysterectomy at age 31. Postmenopausal. Mother had breast cancer, age 60. Risk Values: Alexia 5 year model risk: 2.3%. NCI Lifetime model risk: 17.8%. Prior Study Comparison: 01/11/2015 Bilateral MG screening mammo w CAD - 2, [facility]. 01/14/2016 Bilateral MG screening mammo w CAD - 2, [facility]. Tissue Density: There are scattered fibroglandular densities. Findings: Analyzed By CAD. Pattern is stable. Some focal asymmetries in the upper outer aspect right mid breast. Benign calcifications within the right breast. No suspicious groups of microcalcifications, spiculated or lobular masses, architectural distortion or other secondary signs of malignancy are mammographically apparent. Overall Assessment: Benign, BI-RAD 2 Management: Screening Mammogram of both breasts in 1 year. A negative mammogram report should not preclude additional follow up of suspicious palpable abnormalities. Patient should continue monthly self breast exam. A clinical breast exam by your physician is recommended on an annual basis and results should be correlated with mammographic findings. Electronically signed and approved by: Jeet Caal D.O. Radiologis
== END | disposition home or self-care (01) ==
LOC: RADBDWWP 14:36
PROVIDERS: ATTEND Family Medicine
DX: Z12.31 Encounter for screening mammogram for malignant neoplasm of breast (principal); M85.89 Other specified disorders of bone density and structure, multiple sites; Z78.0 Asymptomatic menopausal state; Z80.3 Family history of malignant neoplasm of breast; Z90.721 Acquired absence of ovaries, unilateral
CPT/HCPCS: 77067; 77080

== ENCOUNTER 2022-04-22 14:14 | Emergency (ER) | payer OTHER, MEDICARE ==
[2022-04-22 14:20] VITALS: TEMP 97.9
[2022-04-22] MEDS ORDERED: HYDROmorphone 0.5 MG/0.5 ML SYRINGE IVP STA ×2 (14:56→18:21)
[2022-04-22] MEDS ORDERED: SODIUM CHLORIDE 0.9% 1,000 ML IV ONE (14:56)
[2022-04-22 15:05] LABS: Appearance,Urine Cloudy (Clear); Bacteria,Urine Many /hpf; Bilirubin,Urine Negative (Negative); Blood,Urine Large (Negative); Color,Urine Light Red; Glucose,Urine (UA) 4+ (Negative); Ketones,Urine Negative (Negative); Leukocyte Esterase,Urine Small (Negative); Mucus,Urine Few /hpf; Nitrite,Urine Negative (Negative); Protein,Urine 1+ (Negative); RBC,Urine >182 /hpf (0-5); Specific Gravity,Urine 1.026 (1.001-1.035); Squamous Epithelial Cell,Urine 2 /hpf (0-4); Urobilinogen,Urine <2.0 mg/dL (<2.0); WBC,Urine 68 /hpf (0-5)
--- NOTE | 2022-04-22 15:52 | ED ---
General Adult HPI - General Chief complaint: Abdominal Pain Stated complaint: abd pain Time Seen by Provider: 04/22/22 14:42 Source: patient, RN notes reviewed Mode of arrival: wheelchair Limitations: no limitations - History of Present Illness Initial comments: 51-year-old female presents to the emergency department with a chief complaint of right lower abdominal pain that is worsening x 4 days. She describes the pain as sharp that is constant and localized to the right lower quadrant that radiates to the right flank. SHe reports accompanying symptoms of hematuria with clots, nausea, vomiting, and diarrhea. She denies any recent sick contacts or recent travel or recent antibiotic use. She does report having old hernia mesh complications except there are "pockets" of infections the abdomen. She does report taking [place] 7.5 and a muscle relaxer which have not helped her pain. Eyes fever, chills, headache, shortness of breath chest pain, palpitations, melena, hematochezia. Denies known hx of diverticulosis/UC/Crohns. She reports she has a history of kidney stones, last stone February 2021. - Related Data Home Medications Medication Instructions Recorded Confirmed Atorvastatin [Lipitor] 40 mg PO HS 03/26/21 04/22/22 Aspirin 81 mg PO DAILY 09/10/21 04/22/22 Insulin Glargine,Hum.rec.anlog 26 unit SQ HS 04/22/22 04/22/22 [Basaglar Kwikpen U-100] Loratadine [Claritin] 10 mg PO DAILY 04/22/22 04/22/22 Melatonin 5 mg PO HS 04/22/22 04/22/22 Previous Rx's Medication Instructions Recorded Cholecalciferol [Vitamin D3 (25 25 mcg PO DAILY #30 tab 03/20/21 Mcg = 1000 Iu)] Omeprazole 20 mg PO HS #30 cap 03/20/21 lisinopriL [Zestril] 10 mg PO DAILY #30 tab 03/20/21 Docusate [Colace] 100 mg PO BID cap 04/29/21 Insulin Aspart [NovoLOG Flexpen] See Protocol SQ TID-W/MEALS PRN 04/29/21 #10 ml Pregabalin [Lyrica] 75 mg PO BID 30 Days #60 cap 01/03/22 Ticagrelor [Brilinta] 90 mg PO BID #60 tab 01/03/22 Cyclobenzaprine [Flexeril] 5 mg PO TID PRN 30 Days #90 tab 02/26/22 HYDROcodone/APAP 7.5-325MG [[place] 1 tab PO Q6H PRN 3 Days #120 tab 02/26/22 7.5-325] Morphine Sulfate ER [Ms Contin] 15 mg PO Q12H 30 Days #60 tab 02/26/22 Cephalexin [Keflex] 500 mg PO Q6HR #40 cap 04/22/22 Allergies Allergy/AdvReac Type Severity Reaction Status Date / Time raspberry Allergy Severe throat Verified 04/22/22 16:30 swelling, buprenorphine [From Suboxone] Allergy Swelling Verified 04/22/22 16:30 duloxetine [From Cymbalta] Allergy Confusion/s Verified 04/22/22 16:30 eizures gabapentin Allergy Swelling Verified 04/22/22 16:30 naloxone [From Suboxone] Allergy Swelling Verified 04/22/22 16:30 NSAIDS (Non-Steroidal Allergy Unknown Verified 04/22/22 16:30 Anti-Inflamma Childhood Review of Systems ROS Statement: Those systems with pertinent positive or pertinent negative responses have been documented in the HPI. ROS Other: All systems not noted in ROS Statement are negative. Past Medical History Past Medical History: Diabetes Mellitus, GERD/Reflux, Hyperlipidemia, Hypertension, Osteoarthritis (OA), Seizure Disorder Additional Past Medical History / Comment(s): Hx bowel obstruction, kidney stones. migraines, last seizure 2013-due to cymbalta, varicose veins, rt lower leg edema, abdominal hernia, kidney stones, History of Any Multi-Drug Resistant Organisms: None Reported, MRSA Date of last positivie culture/infection: 2012 MDRO Source:: stomach mesh Past Surgical History: Back Surgery, Bladder Surgery, Section, Ch olecystectomy, Hernia Repair, Hysterectomy, Orthopedic Surgery, Tonsillectomy Additional Past Surgical History / Comment(s): Ablation of lumbar nerve, COLONOSCOPY. stent rt leg, hernia repair with mesh(mesh later removed due to infection), arthroscopy left knee Past Anesthesia/Blood Transfusion Reactions: Motion Sickness Additional Past Anesthesia/Blood Transfusion Reaction / Comment(s): Claustrophobia. Date of Last Stent Placement:: 01/04/2021 Past Psychological History: Anxiety Smoking Status: Former smoker Past Alcohol Use History: None Reported Past Drug Use History: None Reported - Past Family History Mother Family Medical History: Cancer Additional Family Medical History / Comment(s): Mother had breast cancer Father Family Medical History: Cancer Additional Family Medical History / Comment(s): Father at 42 yrs of age from agent orange exposure. General Exam Limitations: no limitations General appearance: alert, in no apparent distress Head exam: Present: atraumatic, normocephalic, normal inspection Eye exam: Present: normal appearance, PERRL, EOMI. Absent: scleral icterus, conjunctival injection, periorbital swelling ENT exam: Present: normal exam, mucous membranes moist Neck exam: Present: normal inspection. Absent: tenderness, meningismus, lymphadenopathy Respiratory exam: Present: normal lung sounds bilaterally. Absent: respiratory distress, wheezes, rales, rhonchi, stridor Cardiovascular Exam: Present: regular rate, normal rhythm, normal heart sounds. Absent: systolic murmur, diastolic murmur, rubs, gallop, clicks GI/Abdominal exam: Present: soft, tenderness (RLQ, no rashes, lesions. Tenderness to old hernia repair site ), normal bowel sounds. Absent: distended, guarding, rebound, rigid Extremities exam: Present: normal inspection, full ROM, normal capillary refill. Absent: tenderness, pedal edema, joint swelling, calf tenderness Back exam: Present: normal inspection Neurological exam: Present: alert, oriented X3, CN II-XII intact Psychiatric exam: Present: normal affect, normal mood Skin exam: Present: warm, dry, intact, normal color. Absent: rash Course Vital Signs 04/22/22 04/22/22 04/22/22 14:17 16:09 16:53 Temperature 97.9 F Pulse Rate 96 82 78 Respiratory 16 18 18 Rate Blood Pressure 180/74 132/82 135/80 O2 Sat by Pulse 99 99 99 Oximetry - Reevaluation(s) Reevaluation #1: 04/22/22 16:21 Reevaluated patient reports pain improvement status post Dilaudid. Zofran ordered for nausea. Reevaluation #2: 04/22/22 18:21 a should reevaluated. Patient updated on results and is agreeable with the plan for discharge with recommended follow-up to urology. Medical Decision Making - Medical Decision Making Was pt. sent in by a medical professional or institution (, PA, ROVING INSPECTOR, urgent care, hospital, or care home...) When possible be specific @ -[No] Did you speak to anyone other than the patient for history (EMS, parent, family, police, friend...)? What history was obtained from this source @ -[No] Did you review nursing and triage notes (agree or disagree)? Why? @ -[I reviewed and agree with nursing and triage notes] Were old charts reviewed (outside hosp., previous admission, EMS record, old EKG, old radiological studies, urgent care reports/EKG's, care home records)? Report findings @ -[No old charts were reviewed] Differential Diagnosis (chest pain, altered mental status, abdominal pain women, abdominal pain men, vaginal bleeding, weakness, fever, dyspnea, syncope, headache, dizziness, GI bleed, back pain, seizure, CVA, palpatations, mental health)? @ -[not applicable] EKG interpreted by me (3pts min.). @ -[As above] X-rays interpreted by me (1pt min.). @ -[None done] CT interpreted by me (1pt min.). @ -Reveals an ill-defined hypodensity within the bladder lumen likely relating to blood products setting of hematuria complete evaluation of the bladder cystoscopy is recommended to rule out underlying masses there is a ventral wall hernia containing fat enlargement small bowel evidence of bowel obstruction or evidence of strangulation. U/S interpreted by me (1pt. min.). @ -[None done] What testing was considered but not performed or refused? (CT, X-rays, U/S, labs)? Why? @ -[None] What meds were considered but not given or refused? Why? @ -[None] Did you discuss the management of the patient with other professionals (professionals i.e. , PA, ROVING INSPECTOR, lab, RT, psych nurse, hospital social worker, musical instruments assembler, teacher, wildlife conservation officer, rn field case manager)? Give summary @ -[No] Was smoking cessation discussed for >3mins.? @ -[No] Was critical care preformed (if so, how long)? @ -[No] Were there social determinants of health that impacted care today? How? (Homelessness, low income, unemployed, alcoholism, drug addiction, transportation, low edu. Level, literacy, decrease access to med. care, group home, rehab)? @ -[No] Was there de-escalation of care discussed even if they declined (Discuss DNR or withdrawal of care, Hospice)? DNR status @ -[No] What co-morbidities impacted this encounter? (DM, HTN, Smoking, COPD, CAD, Cancer, CVA, ARF, Chemo, Hep., AIDS, mental health diagnosis, sleep apnea, morbid obesity)? @ -[None] Was patient admitted / discharged? Hospital course, mention meds given and route, prescriptions, significant lab abnormalities, going to OR and other pertinent info. @ 51-year-old female presents to the emergency department with abdominal pain. Patient had a history and physical performed. Physical exam is essentially unremarkable heart rate regular rate and rhythm, lung sounds clear to auscultation bilaterally abdomen soft with mild tenderness to ventral hernia. Lab work unremarkable, blood cultures pending. UA is cloudy with large urine blood, small leukocyte esterase urine rbc's greater than [address] WBCs and many urine bacteria CT results above. Patient was given Dilaudid and Zofran and 1 L of fluids for symptomatic relief on the emergency department. Patient was given a prescription for Keflex, and encouraged to follow up with Dr. Doll [facility] in 1-2 days. Patient verbalized all understanding and all questions were addressed. Patient was discharged in stable condition with return preca utions discussed. I discussed the case with ALBINO Christianson who agrees and agrees with the plan of care. Undiagnosed new problem with uncertain prognosis? @ -[No] Drug Therapy requiring intensive monitoring for toxicity (Heparin, Nitro, Insulin, Cardizem)? @ -[No] Were any procedures done? @ -[No] Diagnosis/symptom? @ -Cystitis - Abdominal pain Ventral hernia Acute, or Chronic, or Acute on Chronic? @ -Acute Uncomplicated (without systemic symptoms) or Complicated (systemic symptoms)? @ -Uncomplicated Side effects of treatment? @ -[No] Exacerbation, Progression, or Severe Exacerbation? @ -[No] Poses a threat to life or bodily function? How? (Chest pain, USA, NC, pneumonia, PE, COPD, DKA, ARF, appy, cholecystitis, CVA, Diverticulitis, Homicidal, Suicidal, threat to staff... and all critical care pts) @ -[No] - Lab Data Result diagrams: 04/22/22 15:23 04/22/22 15:23 Lab Results 04/22/22 04/22/22 04/22/22 Range/Units 14:48 15:23 15:23 WBC 7.1 (3.8-10.6) k/uL RBC 4.71 (3.80-5.40) m/uL Hgb 12.3 (11.4-16.0) gm/dL Hct 38.0 (34.0-46.0) % MCV 80.8 (80.0-100.0) fL MCH 26.1 (25.0-35.0) pg MCHC 32.3 (31.0-37.0) g/dL RDW 13.9 (11.5-15.5) % Plt Count 212 (150-450) k/uL MPV 9.1 Sodium 135 L (137-145) mmol/L Potassium 4.6 (3.5-5.1) mmol/L Chloride 103 (98-107) mmol/L Carbon Dioxide 25 (22-30) mmol/L Anion Gap 7 mmol/L BUN 15 (7-17) mg/dL Creatinine 0.45 L (0.52-1.04) mg/dL Est GFR (CKD-EPI)AfAm >90 (>60 ml/min/1.73 sqM) Est GFR (CKD-EPI)NonAf >90 (>60 ml/min/1.73 sqM) Glucose 295 H (74-99) mg/dL Plasma Lactic Acid Niels (0.7-2.0) mmol/L Calcium 9.0 (8.4-10.2) mg/dL Total Bilirubin 0.3 (0.2-1.3) mg/dL AST 21 (14-36) U/L ALT 29 (4-34) U/L Alkaline Phosphatase 158 H (38-126) U/L Total Protein 6.4 (6.3-8.2) g/dL Albumin 3.9 (3.5-5.0) g/dL Urine Color Light Red Urine Appearance Cloudy H (Clear) Urine pH 6.0 (5.0-8.0) Ur Specific [place] 1.026 (1.001-1.035) Urine Protein 1+ H (Negative) Urine Glucose (UA) 4+ H (Negative) Urine Ketones Negative (Negative) Urine Blood Large H (Negative) Urine Nitrite Negative (Negative) Urine Bilirubin Negative (Negative) Urine Urobilinogen <2.0 (<2.0) mg/dL Ur Leukocyte Esterase Small H (Negative) Urine RBC >182 H (0-5) /hpf Urine WBC 68 H (0-5) /hpf Ur Squamous Epith Cells 2 (0-4) /hpf Urine Bacteria Many H (None) /hpf Urine Mucus Few H (None) /hpf 04/22/22 Range/Units 15:23 WBC (3.8-10.6) k/uL RBC (3.80-5.40) m/uL Hgb (11.4-16.0) gm/dL Hct (34.0-46.0) % MCV (80.0-100.0) fL MCH (25.0-35.0) pg MCHC (31.0-37.0) g/dL RDW (11.5-15.5) % Plt Count (150-450) k/uL MPV Sodium (137-145) mmol/L Potassium (3.5-5.1) mmol/L Chloride (98-107) mmol/L Carbon Dioxide (22-30) mmol/L Anion Gap mmol/L BUN (7-17) mg/dL Creatinine (0.52-1.04) mg/dL Est GFR (CKD-EPI)AfAm (>60 ml/min/1.73 sqM) Est GFR (CKD-EPI)NonAf (>60 ml/min/1.73 sqM) Glucose (74-99) mg/dL Plasma Lactic Acid Niels 1.7 (0.7-2.0) mmol/L Calcium (8.4-10.2) mg/dL Total Bilirubin (0.2-1.3) mg/dL AST (14-36) U/L ALT (4-34) U/L Alkaline Phosphatase (38-126) U/L Total Protein (6.3-8.2) g/dL Albumin (3.5-5.0) g/dL Urine Color Urine Appearance (Clear) Urine pH (5.0-8.0) Ur Specific [place] (1.001-1.035) Urine Protein (Negative) Urine Glucose (UA) (Negative) Urine Ketones (Negative) Urine Blood (Negative) Urine Nitrite (Negative) Urine Bilirubin (Negative) Urine Urobilinogen (<2.0) mg/dL Ur Leukocyte Esterase (Negative) Urine RBC (0-5) /hpf Urine WBC (0-5) /hpf Ur Squamous Epith Cells (0-4) /hpf Urine Bacteria (None) /hpf Urine Mucus (None) /hpf Disposition Clinical Impression: Hernia of anterior abdominal wall, Hematuria, Cystitis Disposition: HOME SELF-CARE Condition: Stable Additional Instructions: Please return to the nearest emergency department if symptoms worsen or persist. Prescriptions: Cephalexin [Keflex] 500 mg PO Q6HR #40 cap Is patient prescribed a controlled substance at d/c from ED?: No Referrals: Jaison Brandon MD [Primary Care Provider] - 1-2 days Dwain Doll MD [STAFF PHYSICIAN] - 1-2 days Michelle Cohen DO [Doctor of Osteopathic Medicine] - 1-2 days Chacha Mckenna MD [STAFF PHYSICIAN] - 1-2 days Time of Disposition: 18:24
[2022-04-22 15:57] LABS: HGB 12.3 gm/dL (11.4-16.0); MCH 26.1 pg (25.0-35.0); MCHC 32.3 g/dL (31.0-37.0); MCV 80.8 fL (80.0-100.0); Mean Platelet Volume 9.1; Platelet Count 212 k/uL (150-450); RBC 4.71 m/uL (3.80-5.40); RDW 13.9 % (11.5-15.5); WBC 7.1 k/uL (3.8-10.6)
[2022-04-22 15:58] LABS: ALT 29 U/L (4-34); AST 21 U/L (14-36); African American GFR (CKD) >90 (>60 ml/min/1.73 sqM); Albumin 3.9 g/dL (3.5-5.0); Alkaline Phosphatase 158 U/L (38-126); Anion Gap 7 mmol/L; Blood Urea Nitrogen 15 mg/dL (7-17); Carbon Dioxide 25 mmol/L (22-30); Chloride 103 mmol/L (98-107); Glucose 295 mg/dL (74-99); Non-African American GFR(CKD) >90 (>60 ml/min/1.73 sqM); Potassium 4.6 mmol/L (3.5-5.1); Sodium 135 mmol/L (137-145); Total Bilirubin 0.3 mg/dL (0.2-1.3); Total Protein 6.4 g/dL (6.3-8.2)
[2022-04-22 16:10] VITALS: RESP 18
[2022-04-22] MEDS ORDERED: ONDANSETRON 4 MG/2 ML VIAL IVP STA (16:22)
--- NOTE | 2022-04-22 17:19 | CT ---
EXAMINATION TYPE: CT abdomen pelvis wo con CT DLP: 1097.3 mGycm, Automated exposure control for dose reduction was used. DATE OF EXAM: 04/22/2022 4:50 PM COMPARISON: CT abdomen pelvis most recent from 10/08/2021. CLINICAL INDICATION:Female, 51 years old with history of abdomen; abdominal/flank pain, hematuria, hx of hernia TECHNIQUE: Axial CT of the abdomen and pelvis. Sagittal and coronal reformats were created on a [employer] workstation. Contrast used: None Oral contrast used: without Oral Contrast FINDINGS: LOWER CHEST: Unremarkable ABDOMEN LIVER: Unremarkable GALLBLADDER AND BILE DUCTS: The gallbladder is surgically absent. PANCREAS: Unremarkable. SPLEEN: Unremarkable. ADRENAL GLANDS: Unremarkable. KIDNEYS AND URETERS: No evidence of hydronephrosis or renal calculus. Nonobstructing right renal cyst . Punctate calculus seen on prior in the left kidney not definitively visualized. PELVIS BLADDER: High density irregular material is seen within the bladder lumen. REPRODUCTIVE: Unremarkable. ABDOMEN & PELVIS STOMACH AND BOWEL: No evidence of bowel obstruction. PERITONEUM/RETROPERITONEUM: No evidence of pneumoperitoneum or free fluid. . VASCULATURE: No evidence of aortic aneurysm. Atherosclerosis of the arterial vasculature. MUSCULOSKELETAL: No acute osseous abnormalities, multilevel disc degeneration changes are seen throug hout the spine. LYMPH NODES: No gross evidence for lymphadenopathy. SOFT TISSUE/ABDOMINAL WALL: Ventral wall hernia containing loops of large and small bowel. No evidenc e of obstruction or evidence for stimulation. IMPRESSION: 1. Ill-defined higher density within the bladder lumen likely relating to blood products in the sett ing of hematuria. Complete evaluation of the bladder with cystoscopy is recommended to rule out under lying mass. No evidence for obstructive uropathy or renal calculus. 2. Ventral wall hernias containing fat and large and small bowel. No evidence of bowel obstruction o r evidence for strangulation.
[2022-04-22] MEDS ORDERED: ONDANSETRON 4 MG ODT STARTER PACK 2 TAB BTL PO STA (18:29)
[2022-04-22 18:46] VITALS: BP 124/69; PULSE 92
== END 2022-04-22 18:46 | disposition home or self-care (01) ==
LOC: EC 14:14
DX: K43.9 Ventral hernia without obstruction or gangrene (principal); N30.91 Cystitis, unspecified with hematuria; E11.9 Type 2 diabetes mellitus without complications; E78.5 Hyperlipidemia, unspecified; I10 Essential (primary) hypertension; M19.90 Unspecified osteoarthritis, unspecified site; F41.9 Anxiety disorder, unspecified; Z87.891 Personal history of nicotine dependence; Z91.018 Allergy to other foods; Z88.5 Allergy status to narcotic agent; Z88.8 Allergy status to other drugs, medicaments and biological substances; Z88.6 Allergy status to analgesic agent; Z79.82 Long term (current) use of aspirin; Z79.4 Long term (current) use of insulin; Z79.899 Other long term (current) drug therapy
CPT/HCPCS: 36415; 80053; 83605; 85027; 81001; 87040; 87086; 74176; 99284; 96374; 96375; 96376; 96361 ×2; J2405; S0119; J1170

== ENCOUNTER → 2022-04-23 | Outpatient (CLI) | payer OTHER ==
[2022-04-24 12:43] LABS: Serum Amphetamine Negative; Serum Barbiturates Negative; Serum Benzodiazepine Negative; Serum Cocaine Negative; Serum Methadone Negative; Serum Opiates Negative; Serum Phencyclidine Negative; Serum Propoxyphene Negative; Serum THC (Cannabis) Negative
== END | disposition home or self-care (01) ==
LOC: LABWHC1 12:08
PROVIDERS: ATTEND Physician Assistant Medical
DX: Z02.83 Encounter for blood-alcohol and blood-drug test (principal)
CPT/HCPCS: 36415; 80307

== ENCOUNTER → 2022-04-23 | Outpatient (CLI) | payer OTHER ==
[2022-04-23 11:58] VITALS: BP 155/80; PULSE 88; RESP 18; TEMP 98.2
--- NOTE | 2022-04-23 14:15 | P.PAINPG ---
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 Pain level is provoked at 7 /10 in intensity, constant, localized in the thoraco lumbar spi ne, throbbing, sharp in character w shooting towards the R buttocks and RLE. Pain is provoked by over activity, bending for periods of 5 min or more. Pain is alleviated with PT in 2016, heat & ice, medications, OTC patches, laying on her L side, reclining, repositioning and rest. Pt was in the ER 1 day ago where she received Dilaudid IVP. Interventional pain procedures completed include Patient is currently on MS ER 15mg #60, [place] 7.2/325mg #120, Flexeril Patient denies any side effects of the medication(s), denies excessive drowsiness or sleepiness, denies suicidal ideation and reports that the current pain medication is helping to control the pain and improve activities of daily living. Patient denies any motor or sensory deficits. Patient denies any fever or night sweats, denies any change in the bowel movements or urination. Physical Examination: -Constitutional: Cooperative. Not in acute distress . - Neurologic: Cranial nerve II to XII intact. No focal neurological deficits. - Psychatric: Alert & oriented x 3. Matching mood & appropriate affect. Judgment and insight intact. - Musculoskeletal: Cervical spine: Muscle bulk/ tone/ strength in the bilateral upper extremities normal Vertebral body tenderness to palpation over Spurling test positive Distraction test positive Facet loading test positive Thoracic spine Muscle bulk / tone/ strength in the bilateral paraspinal muscles normal Vertebral body tender to palpation over the T7, T8 Facet loading test positive Lumbar spine: Motor bulk/ tone/ strength lower extremities , thigh and legs : 5/5 Deep tendon reflexes : Normal Knee Jerk. Normal Ankle Jerk . Vertebral body tenderness to palpation over Lumbar Facet Loading Test positive Straight Leg Raise: positive at 30 degrees right side/ left side Gaenslen's Test positive Sacral spine : Severe tenderness over the Sacroiliac joint: right side / left side Range of motion: Flexion of the lumbar spine <60 degrees Range of motion: Extension of the lumbar spine <20 degrees Gaenslen's Test positive Gato test: positive right side / left side Thigh Thrust Test Sacral Thrust Test Imaging: MRI without contrast of the thoracic spine from 11/15/21 reviewed Assessment and plan: Chronic mid and LBP secondary to thoraco lumbar DDD, spondylosis with facet arthropathy without myelopathy Recommendation of YESSENIA T7-T8. May need a series of injections for optimal pain relief. Risks, benefits of procedure discussed and patient verbalized understanding. Admits to anticoagulant use. Protocol for discontinuation/ continuation of medications paramjit procedure discussed. Medical clearance requested. Chronic and current use of high-risk medication (Opioids). The patient was counseled about risk of opioid use, psychological risk associated with opioids and was orally counseled to not overuse , divert or sell medications. Pt is to store medication in a safe location. The patient is counseled against driving while using narcotic med ications and also not to use alcohol or any illicit recreational drugs. Patient verbalized understanding that the lack of compliance will result in failure to renew narcotic prescription(s) as well as possible discharge from the clinic Diagnoses, prognosis and treatment options including but not limited to physical therapy, surgical interventions, interventional therapies and medica tion management including narcotics and adjuvant medication were discussed. All patient questions answered MAPS reviewed and it was appropriate. Pt could not produce urine for UDS. Script for Blood tox screen provided. Updated Narcotic/ Opiate agreement signed today 04/23/22. Prescription refill for MS ER 15mg #60, [place] 7.2/325mg #120, Flexeril w 1 RF I have spent less than 30 minutes on patient care today. Dr Ashton was available by phone for the evaluation of this patient. The time was used to review the medical records including relevant urine studies and Prescription history (MAPs), review of the available imaging, evaluation and examination of the patient, coordination of care with the medical staff and if applicable referring physicians, as well as creation of the medical record PQRS Narrative: Smoking Status Current every day smoker Narcotic Agreement Date Signed 03/27/21 Hx Alcohol Use (MH) Yes Home Medications: Ambulatory Orders Cholecalciferol [Vitamin D3 (25 Mcg = 1000 Iu)] 25 mcg PO DAILY #30 tab 03/20/21 Omeprazole 20 mg PO HS #30 cap 03/20/21 lisinopriL [Zestril] 10 mg PO DAILY #30 tab 03/20/21 Atorvastatin [Lipitor] 40 mg PO HS 03/26/21 Docusate [Colace] 100 mg PO BID cap 04/29/21 Insulin Aspart [NovoLOG Flexpen] See Protocol SQ TID-W/MEALS PRN #10 ml 04/29/21 Aspirin 81 mg PO DAILY 09/10/21 Pregabalin [Lyrica] 75 mg PO BID 30 Days #60 cap 01/03/22 Ticagrelor [Brilinta] 90 mg PO BID #60 tab 01/03/22 Cyclobenzaprine [Flexeril] 5 mg PO TID PRN 30 Days #90 tab 02/26/22 HYDROcodone/APAP 7.5-325MG [[place] 7.5-325] 1 tab PO Q6H PRN 3 Days #120 tab 02/26/22 Morphine Sulfate ER [Ms Contin] 15 mg PO Q12H 30 Days #60 tab 02/26/22 Cephalexin [Keflex] 500 mg PO Q6HR #40 cap 04/22/22 Insulin Glargine,Hum.rec.anlog [Basaglar Kwikpen U-100] 26 unit SQ HS 04/22/22 Loratadine [Claritin] 10 mg PO DAILY 04/22/22 Melatonin 5 mg PO HS 04/22/22 Controlled Substance Measures - Controlled Substance Measures Is patient prescribed a controlled substance at discharge?: Yes When asked, does pt state using other controlled substances?: No If prescribed controlled substance>3 days was MAPS reviewed?: Yes If Rx opioid, was Start Talking consent form obtained?: Yes If opioid is for acute pain is fill amount 7 days or less?: No Was information provided regarding opioid addiction?: Yes
== END ==
LOC: PNWHC3 10:57
PROVIDERS: ATTEND Specialist
DX: Z02.83 Encounter for blood-alcohol and blood-drug test (principal); M47.815 Spondylosis without myelopathy or radiculopathy, thoracolumbar region; M51.35 Other intervertebral disc degeneration, thoracolumbar region; Z79.891 Long term (current) use of opiate analgesic; Z88.8 Allergy status to other drugs, medicaments and biological substances; Z88.6 Allergy status to analgesic agent; Z88.5 Allergy status to narcotic agent; Z91.018 Allergy to other foods; F17.200 Nicotine dependence, unspecified, uncomplicated
CPT/HCPCS: 99211

== ENCOUNTER → 2022-06-18 | Outpatient (CLI) | payer OTHER ==
[2022-06-18 11:10] VITALS: BP 100/66; PULSE 102; RESP 18; TEMP 97.8
--- NOTE | 2022-06-18 14:40 | P.PAINPG ---
PQRS Measure Charge Sheet Comment: A 51 yr old female with a history of severe and chronic LBP secondary to lumbar DDD and spondylosis with facet arthropathy without myelopathy presents today for medication refills and evaluation s/p YESSENIA T7-T8. Pt states she experienced 0% pain relief s/p procedure. With the RFA of the BL L4-L5, L5-S1 pt states she experienced 50% pain relief for 4 1/2 mo s/p procedure. Pain level is provoked at 7 /10 in intensity, constant, localized in the mid to lower lumbar spine, sharp in character w shooting towards the R glute. Pain is provoked by walking/ standing for periods of 5 min or more. Pain is alleviated with medications, topicals, heat, ice, PT in 2012 but stopped due to intractable pain, use of a cane for ambulatory assistance, reclining, repositioning and rest. Interventional pain procedures completed include YESSENIA T7-8 x1, BL RFA L3-L5 (August 2021) Patient is currently on MS ER 15mg #60, [place] 7.5/325mg #120, Lyrica 75mg #60, Flexeril Patient denies any side effects of the medication(s), denies excessive drowsiness or sleepiness, denies suicidal ideation and reports that the current pain medication is helping to control the pain and improve activities of daily living. Patient denies any motor or sensory deficits. Patient denies any fever or night sweats, denies any change in the bowel movements or urination. Physical Examination: -Constitutional: Cooperative. Not in acute distress . - Neurologic: Cranial nerve II to XII intact. No focal neurological deficits. - Psychatric: Alert & oriented x 3. Matching mood & appropriate affect. Judgment and insight intact. - Musculoskeletal: Cervical spine: Muscle bulk/ tone/ strength in the bilateral upper extremities normal Vertebral body tenderness to palpation over Spurling test positive Distraction test positive Facet loading test positive TTP Thoracic spine Muscle bulk / tone/ strength in the bilateral paraspinal muscles normal Vertebral body tender to palpation over Facet loading test positive TTP Lumbar spine: Motor bulk/ tone/ strength lower extremities , thigh and legs : 5/5 Deep tendon reflexes : Normal Knee Jerk. Normal Ankle Jerk . Vertebral body tenderness to palpation over Lumbar Facet Loading Test positive TTP over BL L4-L5, L5-S1 facets Straight Leg Raise: positive at 30 degrees right side/ left side Gaenslen's Test positive Sacral spine : Severe tenderness over the Sacroiliac joint: right side / left side Range of motion: Flexion of the lumbar spine <60 degrees Range of motion: Extension of the lumbar spine <20 degrees Gaenslen's Test positive right side / left side Gato test: positive right side / left side Thigh Thrust Test positive right side / left side Sacral Thrust Test positive right side / left side Assessment and plan: Chronic LBP secondary to lumbar DDD, spondylosis with facet arthropathy without myelopathy Recommendation of BL RFA L4-L5, L5-S1. Pt exhibited sufficient pain relief w prior RFA procedure. Risks, benefits of procedure discussed and pt verbalized understanding. Admits to anticoagulant use or medical history of diabetes. Protocol for discontinuation/ continuation of medications paramjit procedure discussed. All questions answered. Chronic and current use of high-risk medication (Opioids). The patient was counseled about risk of opioid use, psychological risk associated with opioids and was orally counseled to not overuse , divert or sell medications. Pt is to store medication in a safe location. The patient is counseled against driving while using narcotic medications and also not to use alcohol or any illicit recreational drugs. Patient verbalized understanding that the lack of compliance will result in failure to renew narcotic prescription(s) as well as possible discharge from the clinic Diagnoses, prognosis and treatment options including but not limited to physical therapy, surgical interventions, interventional therapies and medication management including narcotics and adjuvant medication were discussed. All patient questions answered MAPS reviewed and it was appropriate. UDS from 09/11/21 reviewed. Prescription refill for MS ER 15mg #60, [place] 7.5/325mg #120, Flexeril w 1 RF I have spent less than 30 minutes on patient care today. Dr Ashton was available by phone for the evaluation of this patient. The time was used to review the medical records including relevant urine studies and Prescription history (MAPs), review of the available imaging, evaluation and examination of the patient, coordination of care with the medical staff and if applicable referring physicians, as well as creation of the medical record - Pain Location Bilateral Lower Back Non-Pharmacological Interventions: Heat, Ice, Inactivity, Position/Reposition, Sitting, Stretching Pharmacological Interventions: Epidural, PRN Medication, Scheduled Medication, Topical Medication PQRS Narrative: Smoking Status Current every day smoker Narcotic Agreement Date Signed 03/27/21 Hx Alcohol Use (MH) Yes Home Medications: Ambulatory Orders Cholecalciferol [Vitamin D3 (25 Mcg = 1000 Iu)] 25 mcg PO DAILY #30 tab 03/20/21 Omeprazole 20 mg PO HS #30 cap 03/20/21 lisinopriL [Zestril] 10 mg PO DAILY #30 tab 03/20/21 Atorvastatin [Lipitor] 40 mg PO HS 03/26/21 Docusate [Colace] 100 mg PO BID cap 04/29/21 Insulin Aspart [NovoLOG Flexpen] See Protocol SQ TID-W/MEALS PRN #10 ml 04/29/21 Aspirin 81 mg PO DAILY 09/10/21 Pregabalin [Lyrica] 75 mg PO BID 30 Days #60 cap 01/03/22 Ticagrelor [Brilinta] 90 mg PO BID #60 tab 01/03/22 Insulin Glargine,Hum.rec.anlog [Basaglar Kwikpen U-100] 26 unit SQ HS 04/22/22 Loratadine [Claritin] 10 mg PO DAILY 04/22/22 Melatonin 5 mg PO HS 04/22/22 Cyclobenzaprine [Flexeril] 5 mg PO TID PRN 30 Days #90 tab 06/18/22 HYDROcodone/APAP 7.5-325MG [[place] 7.5-325] 1 tab PO Q6H PRN 30 Days #120 tab 06/18/22 HYDROcodone/APAP 7.5-325MG [[place] 7.5-325] 1 tab PO Q6H PRN 30 Days #120 tab 06/18/22 Morphine Sulfate ER [Ms Contin] 15 mg PO Q12H 30 Days #60 tab 06/18/22 Morphine Sulfate ER [Ms Contin] 15 mg PO Q12H PRN 30 Days #60 tab 06/18/22 Controlled Substance Measures - Controlled Substance Measures Is patient prescribed a controlled substance at discharge?: Yes When asked, does pt state using other controlled substances?: Yes
== END ==
LOC: PNWHC3 10:44
PROVIDERS: ATTEND Specialist
DX: M51.36 Other intervertebral disc degeneration, lumbar region (principal); M47.816 Spondylosis without myelopathy or radiculopathy, lumbar region; Z91.018 Allergy to other foods; Z88.5 Allergy status to narcotic agent; Z88.8 Allergy status to other drugs, medicaments and biological substances; Z88.6 Allergy status to analgesic agent; F17.210 Nicotine dependence, cigarettes, uncomplicated
CPT/HCPCS: 99211

== ENCOUNTER 2022-07-25 07:56 | Day surgery (SDC) | payer OTHER ==
[~2022-07-25 07:56] MED LIST changes: -ALPRAZolam 0.25 MG TAB PO PRN; -HYDROcodone/APAP 7.5-325MG 1 EACH TAB ONE; -INSULIN ASPART (NovoLOG) 100 UNIT/ML VIAL SQ ONE; -INSULIN ASPART (NovoLOG) 100 UNIT/ML VIAL SQ SCH; -IOPAMIDOL-250 100ML BTL INTRAARTER ONE; +LACTATED RINGERS 1,000 ML IV SCH; +LIDOCAINE 1% (10MG/ML) FOR IV START INTRADERMA PRN; -LIDOCAINE 1% INJ 10MG/ML (30 ML VIAL-PF) SQ ONE; -MIDAZOLAM 2 MG/2 ML VIAL IV ONE; -SODIUM CHLORIDE 0.9% 1,000 ML IV ONE; -SODIUM CHLORIDE 0.9% 1,000 ML in EMPTY BAG 1 BAG IV ONE; -VERAPAMIL 2.5 MG/ML 2 ML AMP ONE; -VERAPAMIL SYRINGE (5 MG/10 ML) INTRAARTER ONE; -fentaNYL (PF) 50 MCG/ML 2 ML AMP ONE
[2022-07-25 08:24] VITALS: RESP 16; TEMP 97.1
[2022-07-25] MEDS ORDERED: MIDAZOLAM 2 MG/2 ML VIAL IVP ONE (08:41)
[2022-07-25 08:43] LABS: Glucose,Whole Blood 208 mg/dL (70-110)
[2022-07-25] MEDS ORDERED: fentaNYL (PF) 50 MCG/ML 2 ML AMP ONE (08:45)
[2022-07-25] MEDS ORDERED: methylPREDNISolone ACETATE 40 MG/ML 1 ML VIAL ONE (08:45)
[2022-07-25] MEDS ORDERED: ROPIVACAINE 5 MG/ML 20 ML AMPULE ONE (08:45)
[2022-07-25] MEDS ORDERED: MIDAZOLAM 2 MG/2 ML VIAL ONE (08:45)
--- NOTE | 2022-07-25 09:16 | P.PCN ---
Date of Procedure: 07/25/22 Procedure(s) Performed: PREOPERATIVE DIAGNOSIS: 1-Lumbar Spondylosis with Facet Arthropathy without myelopathy. 2- Lumber degenerative disc disease. POSTOPERATIVE DIAGNOSIS: 1- Lumbar Spondylosis with Facet Arthropathy without myelopathy. 2- Lumber degenerative disc disease. PROCEDURES : Bilateral Radiofrequency thermocoagulation, L3 , L4 , and L5 medial branch, with fluoroscopic guidance (fluoroscopy images available in the radiology department) ( to denervate the facet joint at Bilateral L4-5 ,and L5-S1 levels ). ANESTHESIA: Monitored anesthesia care as per anesthesia department . EBL: Minimal PROCEDURE INDICATION: The patient with low back pain secondary to lumbar facet arthropathy who had more than 50% relief of her pain with previous diagnostic lumbar medial branch block with bupivacaine. PROCEDURE DESCRIPTION / TECHNIQUE: The patient was seen and identified in the preoperative area. Risks, benefits, complications, including but not limited to risk of infection ,bleeding , allergic reactions to the medications and no complete pain releife , and alternatives were discussed with the patient, the patient agreed to proceed with the procedure and signed the consent. IV was started. Vital signs remained stable throughout the procedure. Patient was taken to the OR and time out was completed. The patient was placed in the prone position on the procedure table. The lumber area was prepped and draped in the usual sterile fashion. . Vital signs were closely monitored during the procedure .IV sedation was used during the procedure to decrease patients anxiety. Using AP and then oblique fluoroscopy, the ``eye of the Mauro dog cor responding to the connection between the superior and transverse articular processes of right L3, L4, and L5 were identified, marked, and localized with 1% lidocaine. Subsequently, a 18 [id number] radiofrequency cannula with a 10- mm active tip was advanced guided by fluoroscopy to each of the``eyes of the Mauro dog at right L3, L4, and L5. Each site then underwent sensory testing at 50 Hz and 0 to 1 volt and motor testing at 2.5 Hz and 0 to 3 volt with local stimulation, but no radicular symptoms down the legs. Thereafter each sites underwent radiofrequency thermocoagulation at 80 degrees celsius for 90 seconds after injecting 0.5 ml of PF Ropivacaine 1ml, then after the thermocoagulation done , 1 ml of the block solution containing Depo-Medrol 20 mg and 3 ml of Ropivacaine 0.5% was injected at the right L3 , L4 , and L5 , levels after negative aspiration of CSF and blood and with no paresthesias. Cannulas were retracted while injecting lidocaine 1% until the needle is out. The same procedure was repeated at the level of Left L3, L4, and L5 levels. At the end of the procedure, the skin was cleansed and bandages were applied. COMPLICATIONS: No acute complications. DISPOSITION / PLANS: The patient was placed in a supine position and transferred to the recovery area in a stable condition for observation and was discharged from the recovery room after meeting discharge criteria. Home discharge instructions given to the patient by the staff. The patient was reexamined prior to discharge. The patient will schedule a follow up in the clinic in 2-4 weeks.
[2022-07-25 09:27] LABS: Glucose,Whole Blood 191 mg/dL (70-110)
[2022-07-25 09:33] VITALS: BP 104/71; PULSE 85
--- NOTE | 2022-07-25 09:42 | FL ---
EXAMINATION TYPE: FL guided pain mgmt statistic DATE OF EXAM: 07/25/2022 CLINICAL HISTORY: Low back pain. TECHNIQUE: Fluoroscopy. COMPARISON: None. FINDINGS: Fluoroscopic guidance was provided during pain relief procedure performed by Dr. Ashton . A total of 38.9 seconds of fluoroscopic time was utilized during the procedure and 6 spot images a re acquired. Images acquired shows needle localization at several levels in the lumbar spine. IMPRESSION: As Above. TOTAL DAP = 0.70184 mGy x m2.
== END 2022-07-25 10:00 | disposition home or self-care (01) ==
LOC: ORPAIN 07:56
PROVIDERS: ATTEND Specialist
DX: M51.36 Other intervertebral disc degeneration, lumbar region (principal); M47.816 Spondylosis without myelopathy or radiculopathy, lumbar region; I10 Essential (primary) hypertension; E78.5 Hyperlipidemia, unspecified; Z88.6 Allergy status to analgesic agent; Z88.8 Allergy status to other drugs, medicaments and biological substances; Z87.891 Personal history of nicotine dependence; E11.9 Type 2 diabetes mellitus without complications; N20.0 Calculus of kidney; G40.909 Epilepsy, unspecified, not intractable, without status epilepticus; F41.0 Panic disorder [episodic paroxysmal anxiety]; K21.9 Gastro-esophageal reflux disease without esophagitis; Z98.891 History of uterine scar from previous surgery; Z90.49 Acquired absence of other specified parts of digestive tract; Z98.890 Other specified postprocedural states; Z79.891 Long term (current) use of opiate analgesic; Z79.899 Other long term (current) drug therapy
CPT/HCPCS: 64635; 64636 ×2; J2250; J1030; J3010; J2795

== ENCOUNTER → 2022-08-13 | Outpatient (CLI) | payer OTHER ==
[2022-08-13 13:20] VITALS: BP 106/61; PULSE 103; RESP 18
--- NOTE | 2022-08-13 15:04 | P.PAINPG ---
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 Pt states she experienced 60 % pain relief s/p procedure. Pain level is provoked at 6/10 in intensity, constant, localized in the mid to lower lumbar spine, tingling in character w shooting towards the R glutes, R hip and RLE. Pain is provoked by walking/ standing for periods of 5 min or more. Pain is alleviated with medications, topicals, heat, ice, PT in 2012 but stopped due to intractable pain, use of a cane for ambulatory assistance, reclining, reposition ing and rest. Interventional pain procedures completed include YESSENIA T7-8 x1, BL RFA L3-L5 (Jun 2022) Patient is currently on MS ER 15mg #60, [place] 7.5/325mg #120, Lyrica 75mg #60, Flexeril Patient denies any side effects of the medication(s), denies excessive drowsiness or sleepiness, denies suicidal ideation and reports that the current pain medication is helping to control the pain and improve activities of daily living. Patient denies any motor or sensory deficits. Patient denies any fever or night sweats, denies any change in the bowel movements or urination. Physical Examination: -Constitutional: Cooperative. Not in acute distress . - Neurologic: Cranial nerve II to XII intact. No focal neurological deficits. - Psychatric: Alert & oriented x 3. Matching mood & appropriate affect. Kimberley gment and insight intact. - Musculoskeletal: Cervical spine: Muscle bulk/ tone/ strength in the bilateral upper extremities normal Vertebral body tenderness to palpation over Spurling test positive Distraction test positive Facet loading test positive TTP Thoracic spine Muscle bulk / tone/ strength in the bilateral paraspinal muscles normal Vertebral body tender to palpation over Facet loading test positive TTP Lumbar spine: Motor bulk/ tone/ strength lower extremities , thigh and legs : 5/5 Deep tendon reflexes : Normal Knee Jerk. Normal Ankle Jerk . Vertebral body tenderness to palpation over Lumbar Facet Loading Test positive TTP over BL L4-L5, L5-S1 facets Straight Leg Raise: positive at 30 degrees right side/ left side Gaenslen's Test positive Sacral spine : Severe tenderness over the Sacroiliac joint: right side / left side Range of motion: Flexion of the lumbar spine <60 degrees Range of motion: Extension of the lumbar spine <20 degrees Gaenslen's Test positive right side / left side Gato test: positive right side / left side Thigh Thrust Test positive right side / left side Sacral Thrust Test positive right side / left side Assessment and plan: Chronic LBP secondary to lumbar DDD, spondylosis with facet arthropathy without myelopathy Chronic and current use of high-risk medication (Opioids). The patient was counseled about risk of opioid use, psychological risk as sociated with opioids and was orally counseled to not overuse , divert or sell medications. Pt is to store medication in a safe location. The patient is counseled against driving while using narcotic medications and also not to use alcohol or any illicit recreational drugs. Patient verbalized understanding that the lack of compliance will result in failure to renew narcotic prescription(s) as well as possible discharge from the clinic Diagnoses, prognosis and treatment options including but not limited to physical therapy, surgical interventions, interventional therapies and medication management including narcotics and adjuvant medication were discussed. All patient questions answered MAPS reviewed and it was appropriate. Blood tox screen from Mar 2022 reviewed and inconsistent. Could not provide sample at May 2022 visit. Today, pt is drinking bottled water to provide UDS sample today. Prescription refill for MS ER 15mg #60, [place] 7.5/325mg #120, Flexeril w 1 RF I have spent less than 30 minutes on patient care today. Dr Ashton was available by phone for the evaluation of this patient. The time was used to review the medical records including relevant urine studies and Prescription history (MAPs), review of the available imaging, evaluation and examination of the patient, coordination of care with the medical staff and if applicable referring physicians, as well as creation of the medical record PQRS Narrative: Smoking Status Current every day smoker Narcotic Agreement Date Signed 04/23/22 Hx Alcohol Use (MH) Yes: RARE Home Medications: Ambulatory Orders Cholecalciferol [Vitamin D3 (25 Mcg = 1000 Iu)] 25 mcg PO DAILY #30 tab 03/20/21 Omeprazole 20 mg PO HS #30 cap 03/20/21 lisinopriL [Zestril] 10 mg PO DAILY #30 tab 03/20/21 Atorvastatin [Lipitor] 40 mg PO HS 03/26/21 Docusate [Colace] 100 mg PO BID cap 04/29/21 Insulin Aspart [NovoLOG Flexpen] See Protocol SQ TID-W/MEALS PRN #10 ml 04/29/21 Aspirin 81 mg PO DAILY 09/10/21 Pregabalin [Lyrica] 75 mg PO BID 30 Days #60 cap 01/03/22 Ticagrelor [Brilinta] 90 mg PO BID #60 tab 01/03/22 Insulin Glargine,Hum.rec.anlog [Basaglar Kwikpen U-100] 26 unit SQ HS 04/22/22 Loratadine [Claritin] 10 mg PO DAILY PRN 04/22/22 Melatonin 5 mg PO HS 04/22/22 Cyclobenzaprine [Flexeril] 5 mg PO TID PRN 30 Days #90 tab 06/18/22 HYDROcodone/APAP 7.5-325MG [[place] 7.5-325] 1 tab PO Q6H PRN 30 Days #120 tab 06/18/22 Morphine Sulfate ER [Ms Contin] 15 mg PO Q12H 30 Days #60 tab 06/18/22 Calcium (Unknown) 650 mg PO BID 07/23/22 Furosemide [Lasix] 20 mg PO DAILY 07/23/22 Multivitamins, Thera [Multivitamin (formulary)] 1 tab PO DAILY 07/23/22 Potassium (Unknown) 10 meq PO DAILY 07/23/22 Controlled Substance Measures - Controlled Substance Measures Is patient prescribed a controlled substance at discharge?: Yes When asked, does pt state using other controlled substances?: Yes If prescribed controlled substance>3 days was MAPS reviewed?: Yes
== END ==
LOC: PNWHC3 10:52
PROVIDERS: ATTEND Specialist
DX: M51.36 Other intervertebral disc degeneration, lumbar region (principal); M47.816 Spondylosis without myelopathy or radiculopathy, lumbar region; G89.29 Other chronic pain; Z79.899 Other long term (current) drug therapy; F17.200 Nicotine dependence, unspecified, uncomplicated; Z91.018 Allergy to other foods; Z88.6 Allergy status to analgesic agent; Z88.5 Allergy status to narcotic agent; Z88.8 Allergy status to other drugs, medicaments and biological substances
CPT/HCPCS: 80307; G0482; G0463; 99212

== ENCOUNTER → 2022-08-20 | Outpatient (CLI) | payer OTHER ==
[2022-08-20 15:09] VITALS: BP 139/83; PULSE 96; TEMP 97.4; BMI 36.6
--- NOTE | 2022-10-21 21:54 | P.HPBAR ---
Bariatric H&P - History & Physicial H&P Date: 08/20/22 History & Physicial: Visit/CC: new patient Patient initial contact: Initial weight: Initial weight in pounds: Height: 5 ft 6 in Initial BMI: Last weight: Current weight: 103.102 kg Current weight in pounds: 227.30 Current BMI: 36.6 [place] body weight (based on NIH guidelines): 58.967 kg Excess body weight loss: The patient is a 52 year-old F who presents for Bariatric Assessment. Patient presents for surgery for bariatric intervention. DATE OF SERVICE: 08/20/2022 REASON FOR CONSULTATION: Initial bariatric evaluation. HISTORY OF PRESENT ILLNESS: Emely You is a 52-year-old female who comes with co-morbidities including diabetes type II with complications of diabetic neuropathy, chronic pain syndrome, osteoarthritis, hypertensive heart disease with congestive heart failure due to her morbid obesity. She presents with a complicated incisional hernia after prior surgery requiring removal of her mesh over 3 years ago. She has personal history of prior bowel obstructions. She has moderate sized pannus. She has tried weight loss including adjusting her diet with minimal improvement. She presents for surgical options for management of her morbid obesity. At height of 5 feet 6 inches, her ideal body weight is 154 pounds. She comes in 227 pounds. Her body mass index highest is 36.7. She is 73 pounds overweight. PAST MEDICAL HISTORY: 1. Morbid obesity due to excess calories 2. Body mass index of 36.7 3. Osteoarthritis of the knees. 4. Osteoarthritis of the hips. 5. Osteoarthritis of the lower back. 6. Gastroesophageal reflux disease 7. Hyperlipidemia 8. Peripheral vascular occlusive disease 9. Diabetes type II, insulin dependent 10. Hypertensive heart disease with congestive heart failure 11. Diabetic neuropathy 12. Coronary artery disease 13. Chronic pain syndrome 14. Fibromylagia 15. Generalized anxiety disorder 16. Panic disorder 17. Claustrophobia 18. Ventral hernia 19. MRSA 20. Bowel obstructions 21. Kidney stones 22. Migraines 23. Seizure PAST SURGICAL HISTORY: 1. Lumbar nerve ablation 2. Colonoscopy 3. Right leg stent 4. Ventral hernia repair with mesh removal and complication 5. Bladder suspension 6. section 7. Cholecystectomy 8. Hysterectomy 9. Tonsillectomy 10. Back surgery HOME MEDICATIONS: Home Medications Medication Instructions Recorded Confirmed Atorvastatin [Lipitor] 40 mg PO HS 03/26/21 11/01/22 Aspirin 81 mg PO DAILY 09/10/21 11/01/22 Insulin Glargine,Hum.rec.anlog 26 unit SQ HS 04/22/22 11/01/22 [Francesco Amaya U-100] Loratadine [Claritin] 10 mg PO DAILY PRN 04/22/22 11/01/22 Melatonin 5 mg PO HS 04/22/22 11/01/22 Multivitamins, Thera [Multivitamin 1 tab PO DAILY 07/23/22 11/01/22 (formulary)] Cholecalciferol [Vitamin D3 (25 25 mcg PO DAILY 08/20/22 11/01/22 Mcg = 1000 Iu)] Andrew/D3/Mag11/Zinc/Juvenile Officer/Roque/Bor 1 tab PO BID 10/24/22 11/01/22 [Caltrate 600+D Plus Tablet] Furosemide [Lasix] 20 mg PO DAILY 10/24/22 11/01/22 Potassium Chloride ER [K-Dur 10] 10 meq PO DAILY 10/24/22 11/01/22 Previous Rx's Medication Instructions Recorded Omeprazole 20 mg PO HS #30 cap 03/20/21 lisinopriL [Zestril] 10 mg PO DAILY #30 tab 03/20/21 Docusate [Colace] 100 mg PO BID cap 04/29/21 Insulin Aspart [NovoLOG Flexpen] See Protocol SQ TID-W/MEALS PRN 04/29/21 #10 ml Pregabalin [Lyrica] 75 mg PO BID 30 Days #60 cap 01/03/22 Ticagrelor [Brilinta] 90 mg PO BID #60 tab 01/03/22 HYDROcodone/APAP 7.5-325MG [[place] 1 tab PO Q6HR PRN 30 Days #120 tab 10/01/22 7.5-325] Cyclobenzaprine [Flexeril] 5 mg PO TID PRN 30 Days #90 tab 10/08/22 Morphine Sulfate ER [Ms Contin] 15 mg PO Q12HR 30 Days #60 tab 10/08/22 Acetaminophen Tab [Tylenol Tab] 1,000 mg PO Q6HR PRN #30 tablet 10/31/22 Ibuprofen [Motrin] 600 mg PO Q8HR PRN #30 tab 10/31/22 ALLERGIES: At height of 5 feet 6 inches, her ideal body weight is 154 pounds. She comes in 227 pounds. Her body mass index highest is 36.7. She is 73 pounds overweight. SOCIAL HISTORY: Past tobacco use. FAMILY HISTORY: No family history of ulcerative colitis disease or Crohn's disease. Family history of morbid obesity. No lupus in the family. No reports of stomach or esophageal cancer. REVIEW OF ORGAN SYSTEMS: CONSTITUTIONAL: At height of 5 feet 6 inches, her ideal body weight is 154 pounds. She comes in 227 pounds. Her body mass index highest is 36.7. She is 73 pounds overweight. HEENT: Denies any active troubles with vision or hearing. No troubles with swallowing. ENDOCRINE: Has diabetes. No hypothyroidism. CARDIOVASCULAR: Has coronary artery disease with peripheral vascular occlusive disease. Has hyperlipidemia and hypertensive heart disease with congestive heart failure. RESPIRATORY: Has daytime somnolence. GI: Denies any bright red blood per rectum. No diarrhea. Has constipation. Has gastroesophageal reflux disease including prior bowel obstructions. MUSCULOSKELETAL: Has lower back pain and joint pain. Has osteoarthritis of the knees and hips. Has chronic pain syndrome. NEURO: No headaches. No seizure disorders. PSYCH: Has depression. No suicidal ideation. Has anxiety. RHEUMATOLOGIC: No lupus. No rheumatoid arthritis. HEMATOLOGIC: Denies any abnormal bleeding or bruising. SKIN: No rash. No skin cancer. PHYSICAL EXAM: VITAL SIGNS: Height 5 foot 6 inches, weight 227 pounds. BMI 36.7 Vital Signs Temp 97.4 F L 08/20/22 15:00 Pulse 96 08/20/22 15:00 Resp BP 139/83 08/20/22 15:00 Pulse Ox FiO2 GENERAL: Well-developed in no acute distress. HEENT: No scleral icterus. Extraocular movements grossly intact. Hears conversational speech. No nasal drainage. NECK: Supple without lymphadenopathy. CHEST: Nonlabored respirations with equal bilateral excursions. CARDIOVASCULAR: Regular rate and regular rhythm. Distal 2+ pulses. ABDOMEN: Obese, soft, nontender, nondistended. Moderate size hernia over 10-cm. Has grade 3 panniculosis. MUSCULOSKELETAL: No clubbing, cyanosis. NEURO: No focal or lateralizing signs. Cranial nerves 2 through 12 grossly within normal limits. PSYCH: Appropriate affect. Alert and oriented to person, place and time. SKIN: Good skin turgor. Well perfused. ASSESSMENT: 1. Morbid obesity due to excess calories 2. Body mass index of 36.7 3. Osteoarthritis of the knees. 4. Osteoarthritis of the hips. 5. Osteoarthritis of the lower back. 6. Gastroesophageal reflux disease 7. Hyperlipidemia 8. Peripheral vascular occlusive disease 9. Diabetes type II, insulin dependent 10. Hypertensive heart disease with congestive heart failure 11. Diabetic neuropathy 12. Coronary artery disease 13. Chronic pain syndrome 14. Fibromylagia 15. Generalized anxiety disorder 16. Panic disorder 17. Claustrophobia 18. Ventral hernia 19. MRSA 20. Bowel obstructions 21. Kidney stones 22. Migraines 23. Seizure PLAN: 1. Surgical options including a band, gastric bypass, sleeve gastrectomy were described in detail. With her multiple abdominal surgeries and bowel obstructions, sleeve gastrectomy described. 2. She has chronic pain syndrome and recommend pain provider management for future pain management. 3. Recommend a bariatric metabolic panel to evaluate for micro- including macronutrient deficiencies. 4. Recommend evaluation and treatment for sleep apnea. 5. Dietary surveillance and counseling was reviewed. Increased protein intake over 65 grams daily advised. 6. Will need cardiac risk assessment. 7. Recommend medical risk assessment. 8. Psych assessment per insurance guidelines. 9. Recommend upper endoscopy. 10. Recommend 12-lead EKG. Thank you for this kind consultation. Past Medical History Past Medical History: Diabetes Mellitus, GERD/Reflux, Hyperlipidemia, Hypertension, Osteoarthritis (OA), Seizure Disorder Additional Past Medical History / Comment(s): Hx bowel obstruction, kidney stones. migraines, last seizure 2013-due to cymbalta, varicose veins, rt lower leg edema, abdominal hernia History of Any Multi-Drug Resistant Organisms: MRSA Year Discovered:: 2012 MDRO Source:: stomach mesh Past Surgical History: Back Surgery, Bladder Surgery, Section, Cholecystectomy, Hernia Repair, Hysterectomy, Orthopedic Surgery, Tonsillectomy Additional Past Surgical History / Comment(s): Ablation of lumbar nerve, COLONOSCOPY. stent rt leg, hernia repair with mesh(mesh later removed due to infection), arthroscopy left knee Past Anesthesia/Blood Transfusion Reactions: Motion Sickness Additional Past Anesthesia/Blood Transfusion Reaction / Comm: Claustrophobia. Date of Last Stent Placement:: 01/04/2021 Past Psychological History: Anxiety, Panic Disorder Additional Psychological History / Comment(s): claustrophobia, "anxiety before procedures" Smoking Status: Former smoker Past Alcohol Use History: None Reported Additional Past Alcohol Use History / Comment(s): Started smoking in 1985 and quit 01/2021. Past Drug Use History: None Reported - Past Family History Mother Family Medical History: Cancer Additional Family Medical History / Comment(s): Mother had breast cancer Father Family Medical History: Cancer Additional Family Medical History / Comment(s): Father at 42 yrs of age from agent orange exposure. Surgical - Exam Vital Signs Temp Pulse BP 97.4 F L 96 139/83 08/20/22 15:00 08/20/22 15:00 08/20/22 15:00 Bariatric Checklist Checklist: Plan: Checklist: EGD: 1. Hiatal hernia: 2. H. Pylori: HgbA1c: Vitamin D: Smoking: Current every day smoker Primary care physician referral: AMRITA ADAM Psychiatry clearance: Cardiology clearance: Sleep study: Diet journal: VTE risk score: VTE risk level: Rehab needs at discharge:
== END ==
LOC: BARWHC3 14:03
PROVIDERS: ATTEND Surgery Plastic and Reconstructive Surgery
DX: E66.01 Morbid (severe) obesity due to excess calories (principal); E78.5 Hyperlipidemia, unspecified; K21.9 Gastro-esophageal reflux disease without esophagitis; M17.0 Bilateral primary osteoarthritis of knee; M16.0 Bilateral primary osteoarthritis of hip; E11.40 Type 2 diabetes mellitus with diabetic neuropathy, unspecified; I11.0 Hypertensive heart disease with heart failure; I50.9 Heart failure, unspecified; E11.51 Type 2 diabetes mellitus with diabetic peripheral angiopathy without gangrene; G89.4 Chronic pain syndrome; M79.7 Fibromyalgia; B95.62 Methicillin resistant Staphylococcus aureus infection as the cause of diseases classified elsewhere; F41.9 Anxiety disorder, unspecified; G40.909 Epilepsy, unspecified, not intractable, without status epilepticus; K56.609 Unspecified intestinal obstruction, unspecified as to partial versus complete obstruction; N20.0 Calculus of kidney; G43.909 Migraine, unspecified, not intractable, without status migrainosus; F41.0 Panic disorder [episodic paroxysmal anxiety]; K43.9 Ventral hernia without obstruction or gangrene; F17.200 Nicotine dependence, unspecified, uncomplicated; Z68.36 Body mass index [BMI] 36.0-36.9, adult; Z79.4 Long term (current) use of insulin; Z79.82 Long term (current) use of aspirin; Z79.899 Other long term (current) drug therapy; Z91.018 Allergy to other foods; Z88.6 Allergy status to analgesic agent; Z88.8 Allergy status to other drugs, medicaments and biological substances; Z88.1 Allergy status to other antibiotic agents
CPT/HCPCS: 99212

== ENCOUNTER → 2022-10-08 | Outpatient (CLI) | payer OTHER ==
[2022-10-08 12:08] VITALS: BP 137/82; PULSE 66; RESP 16; TEMP 98.2
--- NOTE | 2022-10-08 14:54 | P.PAINPG ---
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 Pain level is provoked at 6/10 in intensity, constant, localized in the mid to lower lumbar spine, tingling in character w shooting towards the R glutes, R hip and RLE. Pain is provoked by walking/ standing for periods of 5 min or more. Pain is alleviated with medications, topicals, heat, ice, PT in 2012 but stopped due to intractable pain, use of a cane for ambulatory assistance, reclining, repositioning and rest. Interventional pain procedures completed include YESSENIA T7-8 x1, BL RFA L3-L5 (Jun 2022) Patient is currently on MS ER 15mg #60, [place] 7.5/325mg #120, Lyrica 75mg #60, Flexeril Patient denies any side effects of the medication(s), denies excessive drowsiness or sleepiness, denies suicidal ideation and reports that the current pain medication is helping to control the pain and improve activities of daily living. Patient denies any motor or sensory deficits. Patient denies any fever or night sweats, denies any change in the bowel movements or urination. Physical Examination: -Constitutional: Cooperative. Not in acute distress . - Neurologic: Cranial nerve II to XII intact. No focal neurological deficits. - Psychatric: Alert & oriented x 3. Matching mood & appropriate affect. Judgment and insight intact. - Musculoskeletal: Cervical spine: Muscle bulk/ tone/ strength in the bilateral upper extremities normal Vertebral body tenderness to palpation over Spurling test positive Distraction test positive Facet loading test positive TTP Thoracic spine Muscle bulk / tone/ strength in the bilateral paraspinal muscles normal Vertebral body tender to palpation over Facet loading test positive TTP Lumbar spine: Motor bulk/ tone/ strength lower extremities , thigh and legs : 5/5 Deep tendon reflexes : Normal Knee Jerk. Normal Ankle Jerk . Vertebral body tenderness to palpation over Lumbar Facet Loading Test positive TTP over BL L4-L5, L5-S1 facets Straight Leg Raise: positive at 30 degrees right side/ left side Gaenslen's Test positive Sacral spine : Severe tenderness over the Sacroiliac joint: right side / left side Range of motion: Flexion of the lumbar spine <60 degrees Range of motion: Extension of the lumbar spine <20 degrees Gaenslen's Test positive right side / left side Gato test: positive right side / left side Thigh Thrust Test positive right side / left side Sacral Thrust Test positive right side / left side Assessment and plan: Chronic LBP secondary to lumbar DDD, spondylosis with facet arthropathy without myelopathy Chronic and current use of high-risk medication (Opioids). The patient was counseled about risk of opioid use, psychological risk associated with opioids and was orally counseled to not overuse , divert or sell medications. Pt is to store medication in a safe location. The patient is counseled against driving while using narcotic medications and also not to use alcohol or any illicit recreational drugs. Patient verbalized understanding that the lack of compliance will result in failure to renew narcotic prescription(s) as well as possible discharge from the clinic Diagnoses, prognosis and treatment options including but not limited to physical therapy, surgical interventions, interventional therapies and medication management including narcotics and adjuvant medication were discussed. All patient questions answered MAPS reviewed and it was appropriate. UDS from 08/13/22 reviewed and consistent. Prescription refill for MS ER 15mg #60, [place] 7.5/325mg #120, Flexeril w 1 RF I have spent less than 30 minutes on patient care today. Dr Ashton was available by phone for the evaluation of this patient. The time was used to r eview the medical records including relevant urine studies and Prescription history (MAPs), review of the available imaging, evaluation and examination of the patient, coordination of care with the medical staff and if applicable referring physicians, as well as creation of the medical record PQRS Narrative: Smoking Status Current every day smoker Narcotic Agreement Date Signed 04/23/22 Hx Alcohol Use (MH) Yes: RARE Home Medications: Ambulatory Orders Omeprazole 20 mg PO HS #30 cap 03/20/21 lisinopriL [Zestril] 10 mg PO DAILY #30 tab 03/20/21 Atorvastatin [Lipitor] 40 mg PO HS 03/26/21 Docusate [Colace] 100 mg PO BID cap 04/29/21 Insulin Aspart [NovoLOG Flexpen] See Protocol SQ TID-W/MEALS PRN #10 ml 04/29/21 Aspirin 81 mg PO DAILY 09/10/21 Pregabalin [Lyrica] 75 mg PO BID 30 Days #60 cap 01/03/22 Ticagrelor [Brilinta] 90 mg PO BID #60 tab 01/03/22 Insulin Glargine,Hum.rec.anlog [Basaglar Kwikpen U-100] 26 unit SQ HS 04/22/22 Loratadine [Claritin] 10 mg PO DAILY PRN 04/22/22 Melatonin 5 mg PO HS 04/22/22 Calcium (Unknown) 650 mg PO BID 07/23/22 Furosemide [Lasix] 20 mg PO DAILY 07/23/22 Multivitamins, Thera [Multivitamin (formulary)] 1 tab PO DAILY 07/23/22 Potassium (Unknown) 10 meq PO DAILY 07/23/22 Cholecalciferol [Vitamin D3 (25 Mcg = 1000 Iu)] 25 mcg PO DAILY 08/20/22 Docusate [Colace] 100 mg PO BID 08/20/22 HYDROcodone/APAP 7.5-325MG [[place] 7.5-325] 1 tab PO Q6HR PRN 30 Days #120 tab 10/01/22 Cyclobenzaprine [Flexeril] 5 mg PO TID PRN 30 Days #90 tab 10/08/22 HYDROcodone/APAP 7.5-325MG [[place] 7.5-325] 1 tab PO Q6H PRN 30 Days #120 tab 10/08/22 HYDROcodone/APAP 7.5-325MG [[place] 7.5-325] 1 tab PO Q6H PRN 30 Days #120 tab 10/08/22 Morphine Sulfate ER [Ms Contin] 15 mg PO Q12H 30 Days #60 tab 10/08/22 Morphine Sulfate ER [Ms Contin] 15 mg PO Q12HR 30 Days #60 tab 10/08/22 Controlled Substance Measures - Controlled Substance Measures Is patient prescribed a controlled substance at discharge?: Yes
== END ==
LOC: PNWHC3 11:14
PROVIDERS: ATTEND Specialist
DX: M51.37 Other intervertebral disc degeneration, lumbosacral region (principal); M47.817 Spondylosis without myelopathy or radiculopathy, lumbosacral region; G89.29 Other chronic pain; Z79.891 Long term (current) use of opiate analgesic; Z91.018 Allergy to other foods; Z88.8 Allergy status to other drugs, medicaments and biological substances; Z88.6 Allergy status to analgesic agent; F17.200 Nicotine dependence, unspecified, uncomplicated
CPT/HCPCS: 99211

== ENCOUNTER 2022-10-24 19:14 | Inpatient (IN) | payer MEDICARE, OTHER ==
[2022-10-24] MEDS ORDERED: MORPHINE SULFATE 4 MG/ML SYRINGE IV STA (21:07)
[2022-10-24 21:26] LABS: Basophils # (A) 0.1 k/uL (0-0.2); Basophils % (A) 1 %; Eosinophils # (A) 0.2 k/uL (0-0.7); Eosinophils % (A) 1 %; HGB 14.8 gm/dL (11.4-16.0); Lymphocytes # (A) 2.5 k/uL (1.0-4.8); Lymphocytes % (A) 20 %; MCH 27.4 pg (25.0-35.0); MCHC 32.9 g/dL (31.0-37.0); MCV 83.3 fL (80.0-100.0); Mean Platelet Volume 9.3; Monocytes # (A) 0.5 k/uL (0-1.0); Monocytes % (A) 4 %; Neutrophils # (A) 8.8 k/uL (1.3-7.7); Neutrophils % (A) 73 %; Platelet Count 210 k/uL (150-450); RDW 14.2 % (11.5-15.5); WBC 12.1 k/uL (3.8-10.6)
[2022-10-24 21:52] LABS: ALT 37 U/L (4-34); AST 30 U/L (14-36); African American GFR (CKD) >90 (>60 ml/min/1.73 sqM); Albumin 4.8 g/dL (3.5-5.0); Alkaline Phosphatase 187 U/L (38-126); Amylase 52 U/L (30-110); Anion Gap 13 mmol/L; Blood Urea Nitrogen 15 mg/dL (7-17); Calcium 10.2 mg/dL (8.4-10.2); Carbon Dioxide 22 mmol/L (22-30); Chloride 100 mmol/L (98-107); Glucose 350 mg/dL (74-99); Lipase 77 U/L (23-300); Non-African American GFR(CKD) >90 (>60 ml/min/1.73 sqM); Potassium 4.6 mmol/L (3.5-5.1); Sodium 135 mmol/L (137-145); Total Bilirubin 0.6 mg/dL (0.2-1.3)
[2022-10-24] MEDS ORDERED: HYDROmorphone 1 MG/ML 1 ML SYRINGE IVP STA (21:54)
--- NOTE | 2022-10-24 22:01 | CT ---
EXAMINATION TYPE: CT abdomen pelvis wo con CT DLP: 1244.4 mGycm, Automated exposure control for dose reduction was used. DATE OF EXAM: 10/24/2022 9:38 PM COMPARISON: 04/22/2022 CLINICAL INDICATION:Female, 52 years old with history of abdominal pain; Hx of hernia, abdominal pain x3hrs. TECHNIQUE: Axial CT of the abdomen and pelvis. Sagittal and coronal reformats were created on a [employer] workstation. Contrast used: mL of , (none if empty) Oral contrast used: without Oral Contrast (none if empty) FINDINGS: LOWER CHEST: Unremarkable ABDOMEN LIVER: Unremarkable GALLBLADDER AND BILE DUCTS: The gallbladder is surgically absent. PANCREAS: Unremarkable. SPLEEN: Unremarkable. ADRENAL GLANDS: Unremarkable. KIDNEYS AND URETERS: No evidence of hydronephrosis or renal calculus. The ureters are unremarkable. PELVIS BLADDER: Unremarkable REPRODUCTIVE: Unremarkable. ABDOMEN & PELVIS STOMACH AND BOWEL: No evidence of bowel obstruction. There are loops of bowel extend through a right lower ventral wall hernia. There is suspected area of spiculated partial bowel obstruction series 202 image 29 which has small bowel feces upstream and nondistended bowel downstream. PERITONEUM/RETROPERITONEUM: No evidence of pneumoperitoneum or free fluid. VASCULATURE: No evidence of aortic aneurysm. MUSCULOSKELETAL: No acute osseous abnormalities LYMPH NODES: No gross evidence for lymphadenopathy. SOFT TISSUE/ABDOMINAL WALL: Right lower ventral hernia containing loops of large and small bowel. It is not definitively small or large bowel obstruction from this hernia. There is multiple dilated loop s of small bowel are present IMPRESSION: 1. Findings felt to represent a partial bowel obstruction with short segment of narrowing near the a nterior abdominal wall likely due to adhesions series 202 image 29. There is feces throughout the col on. 2. Ventral wall hernia containing loops of small and large bowel without evidence of obstruction. Di lated loops of bowel extend through this region without obstruction.
[2022-10-24] MEDS ORDERED: ONDANSETRON 4 MG/2 ML VIAL IVP STA (22:05)
[2022-10-24] MEDS ORDERED: INSULIN REGULAR 100 UNIT/ML VIAL (IV) SQ STA (22:08)
[2022-10-24] MEDS ORDERED: SODIUM CHLORIDE 0.9% 500 ML 500 ML IV STA (22:08)
[2022-10-24] MEDS ORDERED: NALOXONE 0.4 MG/ML 1 ML VIAL IV PRN (22:17)
[2022-10-24] MEDS: SODIUM CHLORIDE 0.9% 1,000 ML IV SCH (22:25)
[2022-10-24 22:29] LABS: Appearance,Urine Clear (Clear); Bilirubin,Urine Negative (Negative); Blood,Urine Negative (Negative); Color,Urine Light Yellow; Glucose,Urine (UA) 3+ (Negative); Ketones,Urine Negative (Negative); Nitrite,Urine Positive (Negative); Protein,Urine Negative (Negative); Specific Gravity,Urine 1.015 (1.001-1.035); Urobilinogen,Urine <2.0 mg/dL (<2.0)
[2022-10-24 22:30] LABS: Leukocyte Esterase,Urine Small (Negative)
[2022-10-24 22:32] LABS: RBC,Urine 1 /hpf (0-5); Squamous Epithelial Cell,Urine <1 /hpf (0-4); WBC,Urine 11 /hpf (0-5)
--- NOTE | 2022-10-24 22:59 | ED ---
Abdominal Pain HPI - General Chief Complaint: Abdominal Pain Stated Complaint: Hernia Time Seen by Provider: 10/24/22 20:29 Source: patient, family Mode of arrival: ambulatory Limitations: no limitations - History of Present Illness Initial Comments: This patient is a 52-year-old woman who presents to have evaluation of midline abdominal pain. She states that it had started in early afternoon. She also has had accompanying nausea vomiting. The patient states that she believes it may be related to hernia. She had previous hernia repair years ago at [facility]. She states that approximately a month or so after that she had to have the mesh removed due to infection. She states that that surgery was performed at [facility]. She states that she had seen Dr. Mckenna in the clinic this month because she has started having abdominal pains again. She was told that there were some areas of scar tissue that would need to be re moved. The patient states she has had a bowel movement today. She has not noted fever or chills. She indicates the pain is midline. She states it's worse with pressing on her abdomen. MD Complaint: abdominal pain -: hour(s), week(s) Location: periumbilical Radiation: none Migration to: no migration Severity: severe Quality: cramping Consistency: colicky Improves With: nothing Worsens With: other (Palpation) Associated Symptoms: nausea, vomiting - Related Data Home Medications Medication Instructions Recorded Confirmed Atorvastatin [Lipitor] 40 mg PO HS 03/26/21 11/01/22 Aspirin 81 mg PO DAILY 09/10/21 11/01/22 Insulin Glargine,Hum.rec.anlog 26 unit SQ HS 04/22/22 11/01/22 [Basaglar Kwikpen U-100] Loratadine [Claritin] 10 mg PO DAILY PRN 04/22/22 11/01/22 Melatonin 5 mg PO HS 04/22/22 11/01/22 Multivitamins, Thera [Multivitamin 1 tab PO DAILY 07/23/22 11/01/22 (formulary)] Cholecalciferol [Vitamin D3 (25 25 mcg PO DAILY 08/20/22 11/01/22 Mcg = 1000 Iu)] Andrew/D3/Mag11/Zinc/Flow Manager/Roque/Bor 1 tab PO BID 10/24/22 11/01/22 [Caltrate 600+D Plus Tablet] Furosemide [Lasix] 20 mg PO DAILY 10/24/22 11/01/22 Potassium Chloride ER [K-Dur 10] 10 meq PO DAILY 10/24/22 11/01/22 Previous Rx's Medication Instructions Recorded Omeprazole 20 mg PO HS #30 cap 03/20/21 lisinopriL [Zestril] 10 mg PO DAILY #30 tab 03/20/21 Docusate [Colace] 100 mg PO BID cap 04/29/21 Insulin Aspart [NovoLOG Flexpen] See Protocol SQ TID-W/MEALS PRN 04/29/21 #10 ml Pregabalin [Lyrica] 75 mg PO BID 30 Days #60 cap 01/03/22 Ticagrelor [Brilinta] 90 mg PO BID #60 tab 01/03/22 HYDROcodone/APAP 7.5-325MG [[facility] 1 tab PO Q6HR PRN 30 Days #120 tab 10/01/22 7.5-325] Cyclobenzaprine [Flexeril] 5 mg PO TID PRN 30 Days #90 tab 10/08/22 Morphine Sulfate ER [Ms Contin] 15 mg PO Q12HR 30 Days #60 tab 10/08/22 Acetaminophen Tab [Tylenol Tab] 1,000 mg PO Q6HR PRN #30 tablet 10/31/22 Ibuprofen [Motrin] 600 mg PO Q8HR PRN #30 tab 10/31/22 Allergies Allergy/AdvReac Type Severity Reaction Status Date / Time raspberry Allergy Severe throat Verified 08/13/22 11:08 swelling, buprenorphine [From Suboxone] Allergy Swelling Verified 08/13/22 11:08 duloxetine [From Cymbalta] Allergy Confusion/s Verified 08/13/22 11:08 eizures gabapentin Allergy Swelling Verified 08/13/22 11:08 naloxone [From Suboxone] Allergy Swelling Verified 08/13/22 11:08 NSAIDS (Non-Steroidal Allergy Unknown Verified 08/13/22 11:08 Anti-Inflamma Childhood Review of Systems ROS Statement: Those systems with pertinent positive or pertinent negative responses have been documented in the HPI. ROS Other: All systems not noted in ROS Statement are negative. Constitutional: Denies: fever, weakness Respiratory: Denies: cough, dyspnea Cardiovascular: Denies: chest pain, palpitations, edema Gastrointestinal: Reports: abdominal pain, nausea, vomiting. Denies: diarrhea, constipation, hematemesis, melena, hematochezia Genitourinary: Denies: dysuria, hematuria Musculoskeletal: Denies: back pain Skin: Denies: rash Neurological: Denies: headache Past Medical History Past Medical History: Diabetes Mellitus, GERD/Reflux, Hyperlipidemia, Hypertension, Osteoarthritis (OA), Seizure Disorder Additional Past Medical History / Comment(s): Hx bowel obstruction, kidney stones. migraines, last seizure 2013-due to cymbalta, varicose veins, rt lower leg edema, abdominal hernia History of Any Multi-Drug Resistant Organisms: None Reported, MRSA Date of last positivie culture/infection: 2012 MDRO Source:: stomach mesh Past Surgical History: Back Surgery, Bladder Surgery, Section, Cholecystectomy, Hernia Repair, Hysterectomy, Orthopedic Surgery, Tonsillectomy Additional Past Surgical History / Comment(s): Ablation of lumbar nerve, COLONOSCOPY. stent rt leg, hernia repair with mesh(mesh later removed due to infection), arthroscopy left knee Past Anesthesia/Blood Transfusion Reactions: Motion Sickness Additional Past Anesthesia/Blood Transfusion Reaction / Comment(s): Claustrophobia. Date of Last Stent Placement:: 01/04/2021 Past Psychological History: Anxiety, Panic Disorder Smoking Status: Former smoker Past Alcohol Use History: None Reported Past Drug Use History: None Reported - Past Family History Mother Family Medical History: Cancer Additional Family Medical History / Comment(s): Mother had breast cancer Father Family Medical History: Cancer Additional Family Medical History / Comment(s): Father at 42 yrs of age from agent orange exposure. General Exam Limitations: no limitations General appearance: alert, in no apparent distress Head exam: Present: atraumatic, normocephalic Eye exam: Present: normal appearance. Absent: scleral icterus, conjunctival injection Neck exam: Present: normal inspection Respiratory exam: Present: normal lung sounds bilaterally. Absent: respiratory distress, wheezes, rales, rhonchi, stridor Cardiovascular Exam: Present: regular rate, normal rhythm, normal heart sounds. Absent: systolic murmur, diastolic murmur, rubs, gallop GI/Abdominal exam: Present: soft, distended, tenderness, guarding, hernia, other (The patient has what appears to be incarcerated ventral hernia with moderate tenderness and guarding.). Absent: rebound, rigid, pulsatile mass Extremities exam: Present: normal inspection, normal capillary refill. Absent: pedal edema, calf tenderness Back exam: Present: normal inspection. Absent: CVA tenderness (R), CVA tenderness (L) Neurological exam: Present: alert Skin exam: Present: warm, dry, intact, normal color. Absent: rash Course Vital Signs 10/24/22 10/24/22 10/24/22 19:28 20:44 21:18 Temperature 98.6 F 97.8 F Pulse Rate 108 H 104 H 101 H Respiratory 20 22 20 Rate Blood Pressure 161/87 170/96 164/92 O2 Sat by Pulse 96 97 95 Oximetry 10/24/22 10/24/22 22:04 22:58 Temperature 98.4 F 98.3 F Pulse Rate 93 93 Respiratory 20 19 Rate Blood Pressure 148/89 132/75 O2 Sat by Pulse 98 97 Oximetry Medical Decision Making - Medical Decision Making This patient is a 52-year-old woman with abdominal pain. On the exam she does appear to have tender, incarcerated ventral hernia. The patient is sent for computed tomography scan, and the results are discussed with Dr. Villa, covering for surgery. The patient will be admitted to have further surgical bhakti luation. Medical consult and also ordered for her diabetes control. The patient had CT of the abdomen and pelvis which I interpreted as showing ventral hernia suspect incarcerated. There appears to be partial bowel obstruction. No free air. Was pt. sent in by a medical professional or institution ([facility], [facility], urgent care, hospital, or [facility]...) When possible be specific @ -[No] Did you speak to anyone other than the patient for history (EMS, parent, family, police, friend...)? What history was obtained from this source @ -[No] Did you review nursing and triage notes (agree or disagree)? Why? @ -[I reviewed and agree with nursing and triage notes] Were old charts reviewed (outside hosp., previous admission, EMS record, old EKG, old radiological studies, urgent care reports/EKG's, [facility] records)? Report findings @ -[No old charts were reviewed] Differential Diagnosis (chest pain, altered mental status, abdominal pain women, abdominal pain men, vaginal bleeding, weakness, fever, dyspnea, syncope, headache, dizziness, GI bleed, back pain, seizure, CVA, palpatations, mental health, musculoskeletal)? @ -[Differential Abdominal Pain Women: Appendicitis, Cholecystitis, diverticulosis, ischemic bowel, pancreatitis, hepatitis, UTI, gastroenteritis, AAA, incarcerated hernia, bowel obstruction, constipation, inflammatory bowel, hepatitis, peptic ulcer disease, splenic infarction, perforated viscus, vulvitis, ovarian torsion, PID, kidney stone, placenta abruption, this is not meant to be an all-inclusive list EKG interpreted by me (3pts min.). @ -[ X-rays interpreted by me (1pt min.). @ -[None done] CT interpreted by me (1pt min.). @ -[As above U/S interpreted by me (1pt. min.). @ -[None done] What testing was considered but not performed or refused? (CT, X-rays, U/S, labs)? Why? @ -[None] What meds were considered but not given or refused? Why? @ -[None] Did you discuss the management of the patient with other professionals (professionals i.e. , PA, JEWEL WAXER, lab, RT, psych nurse, protective services social worker, rail detector car operator, teacher, executive officer, case picker)? Give summary @ -[Case discussed with the admitting physician and treatment recommendations are incorporated Was smoking cessation discussed for >3mins.? @ -[No] Was critical care preformed (if so, how long)? @ -[No] Were there social determinants of health that impacted care today? How? (Homelessness, low income, unemployed, alcoholism, drug addiction, transp ortation, low edu. Level, literacy, decrease access to med. care, usp, rehab)? @ -[No] Was there de-escalation of care discussed even if they declined (Discuss DNR or withdrawal of care, Hospice)? DNR status @ -[No] What co-morbidities impacted this encounter? (DM, HTN, Smoking, COPD, CAD, Cancer, CVA, ARF, Chemo, Hep., AIDS, mental health diagnosis, sleep apnea, morbid obesity)? @ -[None] Was patient admitted / discharged? Hospital course, mention meds given and route, prescriptions, significant lab abnormalities, going to OR and other pertinent info. @ -[Patient is admitted to surgery with director medical writing for further management. Patient maintained nothing by mouth, IV fluids Undiagnosed new problem with uncertain prognosis? @ -[No] Drug Therapy requiring intensive monitoring for toxicity (Heparin, Nitro, Insulin, Cardizem)? @ -[No] Were any procedures done? @ -[No] Diagnosis/symptom? @ -[Acute abdominal pain Incarcerated ventral hernia Acute hyperglycemia and diabetic patient Acute, or Chronic, or Acute on Chronic? @ -[Acute Uncomplicated (without systemic symptoms) or Complicated (systemic symptoms)? @ -[Uncomplicated Side effects of treatment? @ -[No] Exacerbation, Progression, or Severe Exacerbation? @ -[No] Poses a threat to life or bodily function? How? (Chest pain, USA, NH, pneumonia, PE, COPD, DKA, ARF, appy, cholecystitis, CVA, Diverticulitis, Homicidal, Suicidal, threat to staff... and all critical care pts) @ -[Yes - Lab Data Result diagrams: 10/28/22 06:28 10/31/22 06:28 Lab Results 10/24/22 10/24/22 10/24/22 Range/Units 21:12 21:12 21:12 WBC 12.1 H (3.8-10.6) k/uL RBC 5.40 (3.80-5.40) m/uL Hgb 14.8 (11.4-16.0) gm/dL Hct 45.0 (34.0-46.0) % MCV 83.3 (80.0-100.0) fL MCH 27.4 (25.0-35.0) pg MCHC 32.9 (31.0-37.0) g/dL RDW 14.2 (11.5-15.5) % Plt Count 210 (150-450) k/uL MPV 9.3 Neutrophils % 73 % Lymphocytes % 20 % Monocytes % 4 % Eosinophils % 1 % Basophils % 1 % Neutrophils # 8.8 H (1.3-7.7) k/uL Lymphocytes # 2.5 (1.0-4.8) k/uL Monocytes # 0.5 (0-1.0) k/uL Eosinophils # 0.2 (0-0.7) k/uL Basophils # 0.1 (0-0.2) k/uL Sodium 135 L (137-145) mmol/L Potassium 4.6 (3.5-5.1) mmol/L Chloride 100 (98-107) mmol/L Carbon Dioxide 22 (22-30) mmol/L Anion Gap 13 mmol/L BUN 15 (7-17) mg/dL Creatinine 0.45 L (0.52-1.04) mg/dL Est GFR (CKD-EPI)AfAm >90 (>60 ml/min/1.73 sqM) Est GFR (CKD-EPI)NonAf >90 (>60 ml/min/1.73 sqM) Glucose 350 H (74-99) mg/dL Plasma Lactic Acid Niels (0.7-2.0) mmol/L Calcium 10.2 (8.4-10.2) mg/dL Total Bilirubin 0.6 (0.2-1.3) mg/dL AST 30 (14-36) U/L ALT 37 H (4-34) U/L Alkaline Phosphatase 187 H (38-126) U/L Total Protein 8.0 (6.3-8.2) g/dL Albumin 4.8 (3.5-5.0) g/dL Amylase 52 (30-110) U/L Lipase 77 (23-300) U/L Urine Color Light Yellow Urine Appearance Clear (Clear) Urine pH 6.0 (5.0-8.0) Ur Specific Waldo 1.015 (1.001-1.035) Urine Protein Negative (Negative) Urine Glucose (UA) 3+ H (Negative) Urine Ketones Negative (Negative) Urine Blood Negative (Negative) Urine Nitrite Positive (Negative) Urine Bilirubin Negative (Negative) Urine Urobilinogen <2.0 (<2.0) mg/dL Ur Leukocyte Esterase Small (Negative) Urine RBC 1 (0-5) /hpf Urine WBC 11 H (0-5) /hpf Ur Squamous Epith Cells <1 (0-4) /hpf 10/24/22 Range/Units 21:12 WBC (3.8-10.6) k/uL RBC (3.80-5.40) m/uL Hgb (11.4-16.0) gm/dL Hct (34.0-46.0) % MCV (80.0-100.0) fL MCH (25.0-35.0) pg MCHC (31.0-37.0) g/dL RDW (11.5-15.5) % Plt Count (150-450) k/uL MPV Neutrophils % % Lymphocytes % % Monocytes % % Eosinophils % % Basophils % % Neutrophils # (1.3-7.7) k/uL Lymphocytes # (1.0-4.8) k/uL Monocytes # (0-1.0) k/uL Eosinophils # (0-0.7) k/uL Basophils # (0-0.2) k/uL Sodium (137-145) mmol/L Potassium (3.5-5.1) mmol/L Chloride (98-107) mmol/L Carbon Dioxide (22-30) mmol/L Anion Gap mmol/L BUN (7-17) mg/dL Creatinine (0.52-1.04) mg/dL Est GFR (CKD-EPI)AfAm (>60 ml/min/1.73 sqM) Est GFR (CKD-EPI)NonAf (>60 ml/min/1.73 sqM) Glucose (74-99) mg/dL Plasma Lactic Acid Niels 2.0 (0.7-2.0) mmol/L Calcium (8.4-10.2) mg/dL Total Bilirubin (0.2-1.3) mg/dL AST (14-36) U/L ALT (4-34) U/L Alkaline Phosphatase (38-126) U/L Total Protein (6.3-8.2) g/dL Albumin (3.5-5.0) g/dL Amylase (30-110) U/L Lipase (23-300) U/L Urine Color Urine Appearance (Clear) Urine pH (5.0-8.0) Ur Specific Waldo (1.001-1.035) Urine Protein (Negative) Urine Glucose (UA) (Negative) Urine Ketones (Negative) Urine Blood (Negative) Urine Nitrite (Negative) Urine Bilirubin (Negative) Urine Urobilinogen (<2.0) mg/dL Ur Leukocyte Esterase (Negative) Urine RBC (0-5) /hpf Urine WBC (0-5) /hpf Ur Squamous Epith Cells (0-4) /hpf Disposition Clinical Impression: Abdominal pain, Incarcerated ventral hernia, Hyperglycemia Disposition: ADMITTED IP TO [facility] Condition: Stable
[2022-10-24] MEDS ORDERED: DEXTROSE 50% SYRINGE 50 ML IVP PRN ×2 (23:49)
[2022-10-25] MEDS: HYDROmorphone 0.5 MG/0.5 ML SYRINGE IVP PRN ×6 (00:09→20:50)
[2022-10-25] MEDS: ONDANSETRON 4 MG/2 ML VIAL IVP PRN ×4 (01:09→23:49)
--- NOTE | 2022-10-25 01:44 | XR ---
EXAM: XR Chest, 1 View CLINICAL HISTORY: ITS.REASON XR Reason: NGT placement TECHNIQUE: Frontal view of the chest. COMPARISON: No relevant prior studies available. FINDINGS: Lungs: No consolidation. No overt edema. Pleural space: No pleural effusion. No pneumothorax. Heart: Unremarkable. No cardiomegaly. Tubes, lines and devices: Esophagogastric tube terminates within the gastric body, proximal sidehole at the GE junction. IMPRESSION: Esophagogastric tube terminates within the gastric body, proximal sidehole at the GE junction.
[2022-10-25] MEDS: MORPHINE SULFATE 4 MG/ML SYRINGE IV PRN ×5 (01:50→23:49)
[2022-10-25 06:02] LABS: Glucose,Whole Blood 289 mg/dL (70-110)
[2022-10-25] MEDS: SODIUM CHLORIDE 0.9% 1,000 ML IV SCH ×2 (07:47→20:49)
[2022-10-25] MEDS: PANTOPRAZOLE 40 MG/10 ML VIAL IV SCH (08:10)
[2022-10-25] MEDS: INSULIN ASPART (NovoLOG) 100 UNIT/ML VIAL SQ SCH ×4 (08:10→20:50)
--- NOTE | 2022-10-25 09:01 | P.GSHP ---
History of Present Illness H&P Date: 10/25/22 Chief Complaint: Small bowel obstruction This a 52-year-old female who was admitted through the emergency room. Patient complaints of abdominal pain nausea vomiting. Patient has seen Dr. Ware recently. Patient has a history of ventral hernia and subsequent removal of infected mesh. Patient was seen at [facility] for her ventral hernia repair. She then had removal of infected mesh at [facility]. Patient computed tomography scan shows evidence of small bowel obstruction most likely due to adhesions. There is also a large incisional hernia containing loops of colon and small bowel. There appears to be no evidence of obstruction at the hernia. Past Medical History Past Medical History: Diabetes Mellitus, GERD/Reflux, Hyperlipidemia, Hypertension, Osteoarthritis (OA), Seizure Disorder Additional Past Medical History / Comment(s): Hx bowel obstruction, kidney stones. migraines, last seizure 2013-due to cymbalta, varicose veins, rt lower leg edema, abdominal hernia History of Any Multi-Drug Resistant Organisms: None Reported, MRSA Date of last positivie culture/infection: 2012 MDRO Source:: stomach mesh Past Surgical History: Back Surgery, Bladder Surgery, Section, Cholecystectomy, Hernia Repair, Hysterectomy, Orthopedic Surgery, Tonsillectomy Additional Past Surgical History / Comment(s): Ablation of lumbar nerve, COLONOSCOPY. stent rt leg, hernia repair with mesh(mesh later removed due to infection), arthroscopy left knee Past Anesthesia/Blood Transfusion Reactions: Motion Sickness Additional Past Anesthesia/Blood Transfusion Reaction / Comment(s): Claustrophobia. Date of Last Stent Placement:: 01/04/2021 Past Psychological History: Anxiety, Panic Disorder Additional Psychological History / Comment(s): claustrophobia, "anxiety before procedures" Smoking Status: Former smoker Past Alcohol Use History: None Reported Additional Past Alcohol Use History / Comment(s): Started smoking in 1985 and quit 01/2021. Past Drug Use History: None Reported - Past Family History Mother Family Medical History: Cancer Additional Family Medical History / Comment(s): Mother had breast cancer Father Family Medical History: Cancer Additional Family Medical History / Comment(s): Father at 42 yrs of age from agent orange exposure. Medications and Allergies Home Medications Medication Instructions Recorded Confirmed Type Omeprazole 20 mg PO HS #30 cap 03/20/21 10/24/22 Rx lisinopriL [Zestril] 10 mg PO DAILY #30 tab 03/20/21 10/24/22 Rx Atorvastatin [Lipitor] 40 mg PO HS 03/26/21 10/24/22 History Docusate [Colace] 100 mg PO BID cap 04/29/21 10/24/22 Rx Insulin Aspart [NovoLOG Flexpen] See Protocol SQ TID-W/MEALS PRN 04/29/21 10/24/22 Rx #10 ml Aspirin 81 mg PO DAILY 09/10/21 10/24/22 History Pregabalin [Lyrica] 75 mg PO BID 30 Days #60 cap 01/03/22 10/24/22 Rx Ticagrelor [Brilinta] 90 mg PO BID #60 tab 01/03/22 10/24/22 Rx Insulin Glargine,Hum.rec.anlog 26 unit SQ HS 04/22/22 10/24/22 History [Basaglar Kwikpen U-100] Loratadine [Claritin] 10 mg PO DAILY PRN 04/22/22 10/24/22 History Melatonin 5 mg PO HS 04/22/22 10/24/22 History Multivitamins, Thera [Multivitamin 1 tab PO DAILY 07/23/22 10/24/22 History (formulary)] Cholecalciferol [Vitamin D3 (25 25 mcg PO DAILY 08/20/22 10/24/22 History Mcg = 1000 Iu)] HYDROcodone/APAP 7.5-325MG [[facility] 1 tab PO Q6HR PRN 30 Days #120 tab 10/01/22 10/24/22 Rx 7.5-325] Cyclobenzaprine [Flexeril] 5 mg PO TID PRN 30 Days #90 tab 10/08/22 10/24/22 Rx Morphine Sulfate ER [Ms Contin] 15 mg PO Q12HR 30 Days #60 tab 10/08/22 10/24/22 Rx Andrew/D3/Mag11/Zinc/Shingle Packer/Roque/Bor 1 tab PO BID 10/24/22 10/24/22 History [Caltrate 600+D Plus Tablet] Furosemide [Lasix] 20 mg PO DAILY 10/24/22 10/24/22 History Potassium Chloride ER [K-Dur 10] 10 meq PO DAILY 10/24/22 10/24/22 History Allergies Allergy/AdvReac Type Severity Reaction Status Date / Time raspberry Allergy Severe throat Verified 08/13/22 11:08 swelling, buprenorphine [From Suboxone] Allergy Swelling Verified 08/13/22 11:08 duloxetine [From Cymbalta] Allergy Confusion/s Verified 08/13/22 11:08 eizures gabapentin Allergy Swelling Verified 08/13/22 11:08 naloxone [From Suboxone] Allergy Swelling Verified 08/13/22 11:08 NSAIDS (Non-Steroidal Allergy Unknown Verified 08/13/22 11:08 Anti-Inflamma Childhood Surgical - Exam Vital Signs Temp Pulse Resp BP Pulse Ox 98.6 F 108 H 20 161/87 96 10/24/22 19:28 10/24/22 19:28 10/24/22 19:28 10/24/22 19:28 10/24/22 19:28 - General well developed, well nourished, obese - Eyes PERRL - ENT normal pinna, normal nares - Neck no masses - Respiratory normal expansion - Cardiovascular Rhythm: regular - Abdomen Abdomen is obese. There is evidence of a chronic midline scar. There is some scarring that was associated with wound infection. There is a large mouth ventral hernia located in the right superior portion of her midline scar. The hernia soft. Patient has some minimal tenderness throughout. There is no rebound or guarding Abdomen: soft Hernia: incisional Results - Labs 10/24/22 21:12 10/24/22 21:12 Abnormal Lab Results - Last 24 Hours (Table) 10/24/22 10/24/22 10/24/22 Range/Units 21:12 21:12 21:12 WBC 12.1 H (3.8-10.6) k/uL Neutrophils # 8.8 H (1.3-7.7) k/uL Sodium 135 L (137-145) mmol/L Creatinine 0.45 L (0.52-1.04) mg/dL Glucose 350 H (74-99) mg/dL POC Glucose (mg/dL) (70-110) mg/dL ALT 37 H (4-34) U/L Alkaline Phosphatase 187 H (38-126) U/L Urine Glucose (UA) 3+ H (Negative) Urine WBC 11 H (0-5) /hpf 10/25/22 Range/Units 06:00 WBC (3.8-10.6) k/uL Neutrophils # (1.3-7.7) k/uL Sodium (137-145) mmol/L Creatinine (0.52-1.04) mg/dL Glucose (74-99) mg/dL POC Glucose (mg/dL) 289 H (70-110) mg/dL ALT (4-34) U/L Alkaline Phosphatase (38-126) U/L Urine Glucose (UA) (Negative) Urine WBC (0-5) /hpf Diabetes panel 10/24/22 Range/Units 21:12 Sodium 135 L (137-145) mmol/L Potassium 4.6 (3.5-5.1) mmol/L Chloride 100 (98-107) mmol/L Carbon Dioxide 22 (22-30) mmol/L BUN 15 (7-17) mg/dL Creatinine 0.45 L (0.52-1.04) mg/dL Glucose 350 H (74-99) mg/dL Calcium 10.2 (8.4-10.2) mg/dL AST 30 (14-36) U/L ALT 37 H (4-34) U/L Alkaline Phosphatase 187 H (38-126) U/L Total Protein 8.0 (6.3-8.2) g/dL Albumin 4.8 (3.5-5.0) g/dL Calcium panel 10/24/22 Range/Units 21:12 Calcium 10.2 (8.4-10.2) mg/dL Albumin 4.8 (3.5-5.0) g/dL Pituitary panel 10/24/22 Range/Units 21:12 Sodium 135 L (137-145) mmol/L Potassium 4.6 (3.5-5.1) mmol/L Chloride 100 (98-107) mmol/L Carbon Dioxide 22 (22-30) mmol/L BUN 15 (7-17) mg/dL Creatinine 0.45 L (0.52-1.04) mg/dL Glucose 350 H (74-99) mg/dL Calcium 10.2 (8.4-10.2) mg/dL Adrenal panel 10/24/22 Range/Units 21:12 Sodium 135 L (137-145) mmol/L Potassium 4.6 (3.5-5.1) mmol/L Chloride 100 (98-107) mmol/L Carbon Dioxide 22 (22-30) mmol/L BUN 15 (7-17) mg/dL Creatinine 0.45 L (0.52-1.04) mg/dL Glucose 350 H (74-99) mg/dL Calcium 10.2 (8.4-10.2) mg/dL Total Bilirubin 0.6 (0.2-1.3) mg/dL AST 30 (14-36) U/L ALT 37 H (4-34) U/L Alkaline Phosphatase 187 H (38-126) U/L Total Protein 8.0 (6.3-8.2) g/dL Albumin 4.8 (3.5-5.0) g/dL - Imaging CT scan - abdomen: pending (Probable small bowel obstruction related to adhesions) Assessment and Plan Assessment: Small bowel obstruction related to adhesions Recurrent incisional hernia (1) Incarcerated ventral hernia Current Visit: Yes Status: Acute Code(s): K43.6 - OTHER AND UNSP VENTRAL HERNIA WITH OBSTRUCTION, W/O GANGRENE SNOMED Code(s): 209259195 Plan: I discussed the patient that her adhesions are most likely causing her small bowel structure. Patient wishes to wait until Dr. Ware returns on Thursday to have her do her surgery. The patient will continue nasogastric tube decompression. She will continue receive supportive care.
[2022-10-25] MEDS ORDERED: DEXTROSE 50% SYRINGE 50 ML IVP PRN ×2 (09:19)
[2022-10-25] MEDS: INSULIN DETEMIR (LEVEMIR) 100 UNIT/ML SYR SQ SCH ×2 (10:52→20:50)
[2022-10-25 11:09] LABS: Glucose,Whole Blood 269 mg/dL (70-110)
[2022-10-25 12:46] VITALS: BMI 35.3
--- NOTE | 2022-10-25 13:48 | P.CONS ---
History of Present Illness - Reason for Consult Consult date: 10/25/22 Requesting physician: Federico Villa - History of Present Illness This is a 52 year old female with medical history of diabetes mellitus, GERD, hypertension, hyperlipidemia, arthritis, seizure disorder, bowel obstruction, former smoker. Patient has prior surgical history of hernia repair with mesh in 2012 and later underwent removal of infected mesh later on that same year had ended up at [facility] for treatment. Since than patient has had chronic issues with abdominal pain. Patient presents to the hospital with abdominal pain and no BM for 3 days. Underwent an abdominal pelvis CT reveals partial bowel obstruction with short segment of narrowing near the anterior abdominal wall likely due to a dhesions. There is feces throughout the colon. Ventral wall hernia containing loops of small and large bowel without evidence of obstruction. Dilated loops of bowel extend through this region without obstruction. She is admitted to general surgery and medicine placed on consultation. Patient had NG tube placed for decompression and currently to wall suction. Pain management in place. Patient has opted to postpone surgery until thursday to proceed with Dr. Mckenna who is her surgeon. Per patient the plan after meeting with Dr Mckenna outpatient is to undergo lysis of adhesions prior to abdominal hernia surgery. Patient has mildly elevated white count of 12.1, sodium 135, blood glucose 300s, LFTs mildly elevated. Urine is showing no infection. Patient is afebrile and on room air. REVIEW OF SYSTEMS: CONSTITUTIONAL: No fever, no malaise, no fatigue. HEENT: No recent visual problems or hearing problems. Denied any sore throat. CARDIOVASCULAR: No chest pain, orthopnea, PND, no palpitations, no syncope. PULMONARY: No shortness of breath, no cough, no hemoptysis. GASTROINTESTINAL: No diarrhea, no nausea, no vomiting, Reports mild achy dull abdominal pain. NEUROLOGICAL: No headaches, no weakness, no numbness. HEMATOLOGICAL: Denies any bleeding or petechiae. GENITOURINARY: Denies any burning micturition, frequency, or urgency. MUSCULOSKELETAL/RHEUMATOLOGICAL: Denies any joint pain, swelling, or any muscle pain. ENDOCRINE: Denies any polyuria or polydipsia. The rest of the 14-point review of systems is negative. PHYSICAL EXAMINATION: GENERAL: The patient is alert and oriented x3, not in any acute distress. Well developed, well nourished. HEENT: Pupils are round and equally reacting to light. EOMI. No scleral icterus. No conjunctival pallor. Normocephalic, atraumatic. No pharyngeal erythema. No thyromegaly. CARDIOVASCULAR: S1 and S2 present. No murmurs, rubs, or gallops. PULMONARY: Chest is clear to auscultation, no wheezing or crackles. ABDOMEN: Soft, nontender, nondistended, normoactive bowel sounds. No palpable organomegaly. MUSCULOSKELETAL: No joint swelling or deformity. EXTREMITIES: No cyanosis, clubbing, or pedal edema. NEUROLOGICAL: Gross neurological examination did not reveal any focal deficits. SKIN: No rashes. Assessment and Plan Partial small bowel obstruction and ventral hernia, with multiple abdominal adhesions scheduled to undergo surgical repair tentatively on thursday Leukocytosis likely reactive to above Diabetes Mellitus type 2 with hyperglycemia, hgb A1C 11.5. Hypertension Hx hyperlipidemia Bowel obstruction in the past History of seizure disorder Gastroesophageal reflux disease Arthritis Former Smoker Obesity GI prophylaxis DVT prophylaxis as per primary Full Code Plan Continue NG tube to suction NPO diet Continue with IV hydration Pain management in place Appropriate home medications have been resumed Thank you for this consultation The impression and plan of care has been dictated by Tammy Weber Nurse Practitioner as directed. Dr. Paul MD I have performed a history and physical examination and medical decision making of this patient, discussed the same with the dictator, and agree with the dictators assessment and plan as written, documented as a scribe. Based on total visit time, I have performed more than 50% of this visit. Past Medical History Past Medical History: Diabetes Mellitus, GERD/Reflux, Hyperlipidemia, Hypertension, Osteoarthritis (OA), Seizure Disorder Additional Past Medical History / Comment(s): Hx bowel obstruction, kidney stones. migraines, last seizure 2013-due to cymbalta, varicose veins, rt lower leg edema, abdominal hernia History of Any Multi-Drug Resistant Organisms: None Reported, MRSA Year Discovered:: 2012 MDRO Source:: stomach mesh Past Surgical History: Back Surgery, Bladder Surgery, Section, Cholecystectomy, Hernia Repair, Hysterectomy, Orthopedic Surgery, Tonsillectomy Additional Past Surgical History / Comment(s): Ablation of lumbar nerve, COLONOSCOPY. stent rt leg, hernia repair with mesh(mesh later removed due to infection), arthroscopy left knee Past Anesthesia/Blood Transfusion Reactions: Motion Sickness Additional Past Anesthesia/Blood Transfusion Reaction / Comm: Claustrophobia. Date of Last Stent Placement:: 01/04/2021 Past Psychological History: Anxiety, Panic Disorder Additional Psychological History / Comment(s): claustrophobia, "anxiety before procedures" Smoking Status: Former smoker Past Alcohol Use History: None Reported Additional Past Alcohol Use History / Comment(s): Started smoking in 1985 and quit 01/2021. Past Drug Use History: None Reported - Past Family History Mother Family Medical History: Cancer Additional Family Medical History / Comment(s): Mother had breast cancer Father Family Medical History: Cancer Additional Family Medical History / Comment(s): Father at 42 yrs of age from agent orange exposure. Medications and Allergies Home Medications Medication Instructions Recorded Confirmed Type Omeprazole 20 mg PO HS #30 cap 03/20/21 10/24/22 Rx lisinopriL [Zestril] 10 mg PO DAILY #30 tab 03/20/21 10/24/22 Rx Atorvastatin [Lipitor] 40 mg PO HS 03/26/21 10/24/22 History Docusate [Colace] 100 mg PO BID cap 04/29/21 10/24/22 Rx Insulin Aspart [NovoLOG Flexpen] See Protocol SQ TID-W/MEALS PRN 04/29/21 Rx #10 ml Aspirin 81 mg PO DAILY 09/10/21 10/24/22 History Pregabalin [Lyrica] 75 mg PO BID 30 Days #60 cap 01/03/22 10/24/22 Rx Ticagrelor [Brilinta] 90 mg PO BID #60 tab 01/03/22 10/24/22 Rx Insulin Glargine,Hum.rec.anlog 26 unit SQ HS 04/22/22 10/24/22 History [Basaglar Kwikpen U-100] Loratadine [Claritin] 10 mg PO DAILY PRN 04/22/22 10/24/22 History Melatonin 5 mg PO HS 04/22/22 10/24/22 History Multivitamins, Thera [Multivitamin 1 tab PO DAILY 07/23/22 10/24/22 History (formulary)] Cholecalciferol [Vitamin D3 (25 25 mcg PO DAILY 08/20/22 10/24/22 History Mcg = 1000 Iu)] HYDROcodone/APAP 7.5-325MG [[place] 1 tab PO Q6HR PRN 30 Days #120 tab 10/01/22 10/24/22 Rx 7.5-325] Cyclobenzaprine [Flexeril] 5 mg PO TID PRN 30 Days #90 tab 10/08/22 10/24/22 Rx Morphine Sulfate ER [Ms Contin] 15 mg PO Q12HR 30 Days #60 tab 10/08/22 10/24/22 Rx Andrew/D3/Mag11/Zinc/Media Marketing Specialist/Roque/Bor 1 tab PO BID 10/24/22 10/24/22 History [Caltrate 600+D Plus Tablet] Furosemide [Lasix] 20 mg PO DAILY 10/24/22 10/24/22 History Potassium Chloride ER [K-Dur 10] 10 meq PO DAILY 10/24/22 10/24/22 History Allergies Allergy/AdvReac Type Severity Reaction Status Date / Time raspberry Allergy Severe throat Verified 08/13/22 11:08 swelling, buprenorphine [From Suboxone] Allergy Swelling Verified 08/13/22 11:08 duloxetine [From Cymbalta] Allergy Confusion/s Verified 08/13/22 11:08 eizures gabapentin Allergy Swelling Verified 08/13/22 11:08 naloxone [From Suboxone] Allergy Swelling Verified 08/13/22 11:08 NSAIDS (Non-Steroidal Allergy Unknown Verified 08/13/22 11:08 Anti-Inflamma Childhood Physical Exam Vitals: Vital Signs Temp Pulse Pulse Resp BP BP Pulse Ox 10/25/22 07:25 98.7 F 105 H 17 116/76 95 10/25/22 01:28 98.6 F 97 18 119/69 92 L 10/24/22 22:58 98.3 F 93 19 132/75 97 10/24/22 22:04 98.4 F 93 20 148/89 98 10/24/22 21:18 101 H 20 164/92 95 10/24/22 20:44 97.8 F 104 H 22 170/96 97 10/24/22 19:28 98.6 F 108 H 20 161/87 96 Intake and Output 10/24/22 10/25/22 10/25/22 22:59 06:59 14:59 Intake Total 780 Output Total 1 Balance 779 Intake: Intake, IV Titration 780 Amount Sodium Chloride 0.9% 1, 780 000 ml @ 130 mls/hr IV . Q7H42M [facility] Rx#:[id number] Output: Urine 1 Other: # Bowel Movements 2 Weight 99.337 kg 99.337 kg Results CBC & Chem 7: 10/24/22 21:12 10/24/22 21:12 Labs: Abnormal Lab Results - Last 24 Hours (Table) 10/24/22 10/24/22 10/24/22 Range/Units 21:12 21:12 21:12 WBC 12.1 H (3.8-10.6) k/uL Neutrophils # 8.8 H (1.3-7.7) k/uL Sodium 135 L (137-145) mmol/L Creatinine 0.45 L (0.52-1.04) mg/dL Glucose 350 H (74-99) mg/dL POC Glucose (mg/dL) (70-110) mg/dL ALT 37 H (4-34) U/L Alkaline Phosphatase 187 H (38-126) U/L Urine Glucose (UA) 3+ H (Negative) Urine WBC 11 H (0-5) /hpf 10/25/22 Range/Units 06:00 WBC (3.8-10.6) k/uL Neutrophils # (1.3-7.7) k/uL Sodium (137-145) mmol/L Creatinine (0.52-1.04) mg/dL Glucose (74-99) mg/dL POC Glucose (mg/dL) 289 H (70-110) mg/dL ALT (4-34) U/L Alkaline Phosphatase (38-126) U/L Urine Glucose (UA) (Negative) Urine WBC (0-5) /hpf Assessment and Plan Time with Patient: Less than 30
[2022-10-25 16:52] LABS: Glucose,Whole Blood 200 mg/dL (70-110)
[2022-10-25 20:34] LABS: Glucose,Whole Blood 167 mg/dL (70-110)
[2022-10-25] MEDS: PREGABALIN 75 MG CAP PO SCH (20:34)
[2022-10-25] MEDS: ATORVASTATIN 40 MG TAB PO SCH (20:34)
[2022-10-26] MEDS: HYDROmorphone 0.5 MG/0.5 ML SYRINGE IVP PRN ×2 (03:07→06:24)
[2022-10-26] MEDS: SODIUM CHLORIDE 0.9% 1,000 ML IV SCH ×3 (03:11→16:17)
[2022-10-26] MEDS: MORPHINE SULFATE 4 MG/ML SYRINGE IV PRN (04:40)
[2022-10-26 06:07] LABS: Glucose,Whole Blood 164 mg/dL (70-110)
[2022-10-26] MEDS: ONDANSETRON 4 MG/2 ML VIAL IVP PRN ×3 (06:25→18:58)
[2022-10-26] MEDS: INSULIN ASPART (NovoLOG) 100 UNIT/ML VIAL SQ SCH ×3 (06:30→17:20)
[2022-10-26] MEDS: PREGABALIN 75 MG CAP PO SCH ×2 (08:43→20:17)
[2022-10-26] MEDS: ASPIRIN 81 MG PO SCH (08:43)
[2022-10-26] MEDS: PANTOPRAZOLE 40 MG/10 ML VIAL IV SCH (09:16)
[2022-10-26] MEDS: HYDROmorphone 1 MG/ML 1 ML SYRINGE IVP PRN ×5 (09:16→22:25)
[2022-10-26 09:36] LABS: BUN/Creat Ratio 22.75 Ratio (12.00-20.00); Blood Urea Nitrogen 9.1 mg/dL (9.0-27.0); Calcium 8.2 mg/dL (8.7-10.3); Carbon Dioxide 22.2 mmol/L (21.6-31.8); Chloride 107 mmol/L (96-109); Glucose 176 mg/dL (70-110); Potassium 3.5 mmol/L (3.5-5.5); Sodium 140 mmol/L (135-145)
[2022-10-26 09:56] LABS: Basophils # (A) 0.04 X 10*3/uL (0.00-0.10); Basophils % (A) 0.5 %; Eosinophils # (A) 0.07 X 10*3/uL (0.04-0.35); Eosinophils % (A) 0.9 %; HCT 38.1 % (37.2-46.3); HGB 11.9 d/dL (12.0-15.0); Lymphocytes # (A) 1.87 X 10*3/uL (0.90-5.00); Lymphocytes % (A) 25.1 %; MCH 26.4 pg (27.0-32.0); MCHC 31.2 d/dL (32.0-37.0); MCV 84.7 FL (80.0-97.0); Mean Platelet Volume 11.7 FL (9.5-12.2); Monocytes # (A) 0.65 X 10*3/uL (0.20-1.00); Monocytes % (A) 8.7 %; NRBC Per 100 WBC 0 X 10*3/uL (0.00-0.01); Neutrophils # (A) 4.81 X 10*3/uL (1.80-7.70); Neutrophils % (A) 64.5 %; Platelet Count 204 X 10*3/uL (140-440); RDW 14.4 % (11.5-14.5); WBC 7.46 X 10*3/uL (4.50-10.00)
[2022-10-26] MEDS: INSULIN DETEMIR (LEVEMIR) 100 UNIT/ML SYR SQ SCH ×2 (10:23→21:14)
--- NOTE | 2022-10-26 10:42 | P.PN ---
Progress Note - Text Progress Note Date: 10/26/22 Patient's complaints of crampy abdominal pain. She's had some significant output through her nasogastric tube. On exam vital signs appear stable. Abdomen soft there is mild diffuse tenderness in the area of her incisional hernias tender. Chronic incisional hernia with partial small bowel obstruction related to adhesions. Patient will be evaluated Dr. Ware for possible surgical intervention planned.
[2022-10-26 11:17] LABS: Glucose,Whole Blood 179 mg/dL (70-110)
--- NOTE | 2022-10-26 13:16 | XR ---
EXAMINATION TYPE: XR chest 1V DATE OF EXAM: 10/26/2022 1:04 PM COMPARISON: Chest radiographs from 10/24/2022. TECHNIQUE: XR chest 1V Frontal view of the chest. CLINICAL INDICATION:Female, 52 years old with history of Possible fluid overload; FINDINGS: Lungs/Pleura: There is no evidence of pleural effusion, focal consolidation, or pneumothorax. Pulmonary vascularity: Unremarkable. Heart/mediastinum: Cardiomediastinal silhouette is unremarkable. Musculoskeletal: No acute osseous pathology. Nasogastric tube in appropriate position. IMPRESSION: No acute cardiopulmonary disease/process. No evidence for fluid overload.
[2022-10-26 16:39] LABS: Glucose,Whole Blood 184 mg/dL (70-110)
[2022-10-26] MEDS: ATORVASTATIN 40 MG TAB PO SCH (20:17)
[2022-10-26 21:16] LABS: Glucose,Whole Blood 190 mg/dL (70-110)
[2022-10-27 00:46] LABS: Glucose,Whole Blood 187 mg/dL (70-110)
[2022-10-27] MEDS: INSULIN ASPART (NovoLOG) 100 UNIT/ML VIAL SQ SCH ×4 (00:50→17:13)
[2022-10-27] MEDS: HYDROmorphone 1 MG/ML 1 ML SYRINGE IVP PRN ×5 (00:50→12:15)
[2022-10-27] MEDS: ONDANSETRON 4 MG/2 ML VIAL IVP PRN ×2 (00:55→06:56)
[2022-10-27] MEDS: SODIUM CHLORIDE 0.9% 1,000 ML IV SCH ×4 (03:30→22:44)
[2022-10-27 05:51] LABS: Glucose,Whole Blood 186 mg/dL (70-110)
[2022-10-27] MEDS: ASPIRIN 81 MG PO SCH (08:02)
[2022-10-27] MEDS: PANTOPRAZOLE 40 MG/10 ML VIAL IV SCH (08:02)
[2022-10-27] MEDS: PREGABALIN 75 MG CAP PO SCH ×2 (08:02→22:21)
[2022-10-27] MEDS ORDERED: SODIUM CHLORIDE 0.9% 2,000 ML IV ONE (10:21)
--- NOTE | 2022-10-27 10:42 | P.PN ---
Subjective Progress Note Date: 10/27/22 CHIEF COMPLAINT: Bowel obstruction HISTORY OF PRESENT ILLNESS: Emely You is a 52-year-old female with long- standing history of complex abdominal wall hernia initially treated with mesh which was subsequently removed over 2-3 years ago and now large abdominal wall hernia with loss of domain. Patient was being evaluated at the bariatric center one month ago for initial weight loss surgery followed by abdominal wall reconstruction. She was undergoing cardiac assessment. She was also pending EKG, stress test for pre-existing history of peripheral vascular occlusive disease with stents in the right leg. She presented to the emergency room 4 days ago with acute right lower quadrant swelling and pain with features of bowel obstruction. Patient was admitted and followed by covering surgeon with whom she declined surgical intervention pending my return today. Patient reports decreased abdominal distention however she has persistent right lower quadrant abdominal pain. She has a nasogastric tube. She reports minimal flatus. Due to her her persistent symptoms, surgical intervention is being advised. At height of 5 feet 6 inches, her ideal body weight is 153 pounds. Her present weight is 218 pounds. Her body mass index highest 35.3. She is 65 pounds overweight. PAST MEDICAL HISTORY: 1. Morbid obesity due to excess calories 2. Body mass index of 35.3, initial 3. Diabetes type 2, insulin-dependent 4. Chronic pain syndrome 5. Diabetic neuropathy 6. Hypertensive heart disease 7. Peripheral vascular occlusive disease 8. Gastroesophageal reflux disease 9. Coronary artery disease 10. Seizure disorder 11. MRSA 12. Claustrophobia 13. Motion sickness 14. Hyperlipidemia PAST SURGICAL HISTORY: 1. Abdominal ventral wall hernia with mesh placement, subsequent removal due to complications 2. Nerve ablation 3. Endarterectomy right common femoral artery 4. Right iliac stent placement 5. Tonsillectomy 6. section 7. Hysterectomy 8. Lef t knee arthroscopy 9. Incision and drainage of buttock abscess 10. Cholecystectomy HOME MEDICATIONS: Home Medications Medication Instructions Recorded Confirmed Atorvastatin [Lipitor] 40 mg PO HS 03/26/21 10/24/22 Aspirin 81 mg PO DAILY 09/10/21 10/24/22 Insulin Glargine,Hum.rec.anlog 26 unit SQ HS 04/22/22 10/24/22 [Basaglar Kristineikpen U-100] Loratadine [Claritin] 10 mg PO DAILY PRN 04/22/22 10/24/22 Melatonin 5 mg PO HS 04/22/22 10/24/22 Multivitamins, Thera [Multivitamin 1 tab PO DAILY 07/23/22 10/24/22 (formulary)] Cholecalciferol [Vitamin D3 (25 25 mcg PO DAILY 08/20/22 10/24/22 Mcg = 1000 Iu)] Andrew/D3/Mag11/Zinc/Midwife Practitioner/Roque/Bor 1 tab PO BID 10/24/22 10/24/22 [Caltrate 600+D Plus Tablet] Furosemide [Lasix] 20 mg PO DAILY 10/24/22 10/24/22 Potassium Chloride ER [K-Dur 10] 10 meq PO DAILY 10/24/22 10/24/22 Previous Rx's Medication Instructions Recorded Omeprazole 20 mg PO HS #30 cap 03/20/21 lisinopriL [Zestril] 10 mg PO DAILY #30 tab 03/20/21 Docusate [Colace] 100 mg PO BID cap 04/29/21 Insulin Aspart [NovoLOG Flexpen] See Protocol SQ TID-W/MEALS PRN 04/29/21 #10 ml Pregabalin [Lyrica] 75 mg PO BID 30 Days #60 cap 01/03/22 Ticagrelor [Brilinta] 90 mg PO BID #60 tab 01/03/22 HYDROcodone/APAP 7.5-325MG [[place] 1 tab PO Q6HR PRN 30 Days #120 tab 10/01/22 7.5-325] Cyclobenzaprine [Flexeril] 5 mg PO TID PRN 30 Days #90 tab 10/08/22 Morphine Sulfate ER [Ms Contin] 15 mg PO Q12HR 30 Days #60 tab 10/08/22 ALLERGIES: Allergies Allergy/AdvReac Type Severity Reaction Status Date / Time raspberry Allergy Severe throat Verified 08/13/22 11:08 swelling, buprenorphine [From Suboxone] Allergy Swelling Verified 08/13/22 11:08 duloxetine [From Cymbalta] Allergy Confusion/s Verified 08/13/22 11:08 eizures gabapentin Allergy Swelling Verified 08/13/22 11:08 naloxone [From Suboxone] Allergy Swelling Verified 08/13/22 11:08 NSAIDS (Non-Steroidal Allergy Unknown Verified 08/13/22 11:08 Anti-Inflamma Childhood SOCIAL HISTORY: Past tobacco use. FAMILY HISTORY: No family history of ulcerative colitis disease or Crohn's disease. Family history of morbid obesity. No lupus in the family. No reports of stomach or esophageal cancer. REVIEW OF ORGAN SYSTEMS: CONSTITUTIONAL: At height of 5 feet 6 inches, her ideal body weight is 153 pounds. Her present weight is 218 pounds. Her body mass index highest 35.3. She is 65 pounds overweight. HEENT: Denies any active troubles with vision or hearing. No troubles with swallowing. ENDOCRINE: Has diabetes. No hypothyroidism. CARDIOVASCULAR: Peripheral vascular occlusive disease including multiple endarterectomies, right common femoral/iliac arteries RESPIRATORY: No recent pneumonia GI: Intermittent constipation no active blood in stools MUSCULOSKELETAL: Has lower back pain and joint pain. Has osteoarthritis of the knees and hips. NEURO: No headaches. No seizure disorders. Has chronic pain syndrome PSYCH: Has claustrophobia. No suicidal ideation RHEUMATOLOGIC: No lupus. No rheumatoid arthritis. HEMATOLOGIC: Denies any abnormal bleeding or bruising. No personal history of DVTs. SKIN: No rash. No skin cancer. PHYSICAL EXAM: VITAL SIGNS: Height 5 foot 6 inches, weight 218 pounds. BM I 35.3 Vital Signs Temp 97.6 F 10/27/22 08:00 Pulse 102 H 10/27/22 08:00 Resp 15 10/27/22 08:00 BP 160/79 10/27/22 08:00 Pulse Ox 93 L 10/27/22 08:00 FiO2 Intake & Output 10/26/22 10/27/22 10/27/22 18:59 06:59 18:59 Output Total 400 600 Balance -400 -600 Output: Gastric Drainage 400 600 Other: Voiding Method Toilet # Voids 1 3 GENERAL: Well-developed in no acute distress. HEENT: No scleral icterus. Extraocular movements grossly intact. Hears conversational speech. No nasal drainage. NECK: Supple without lymphadenopathy. CHEST: Nonlabored respirations with equal bilateral excursions. CARDIOVASCULAR: Regular rate and regular rhythm. Distal 2+ pulses. ABDOMEN: Obese, no skin changes, tender right lower quadrant with rebound tenderness. No rigidity. MUSCULOSKELETAL: No clubbing, cyanosis. NEURO: No focal or lateralizing signs. Cranial nerves 2 through 12 grossly wit hin normal limits. PSYCH: Appropriate affect. Alert and oriented to person, place and time. SKIN: Good skin turgor. Well perfused. LABS: WBC normal 7.5. Hemoglobin 11.6, anemia. Blood sugar glucose 176, hyperglycemia STUDIES: CT of the abdomen pelvis and the pelvic review demonstrates abdominal wall hernia with incarcerated small bowel and transverse colon. Transition point found within the right lower quadrant at the iliac vessels. This is my independent interpretation. ASSESSMENT: 1. Small bowel obstruction, mechanical with localized peritonitis, right lower quadrant 2. Large incarcerated abdominal wall hernia, recurrent with small and large bowel 3. Morbid obesity due to excess calories 4. Body mass index of 35.3, initial 5. Diabetes type 2, insulin-dependent 6. Chronic pain syndrome 7. Diabetic neuropathy 8. Hypertensive heart disease 9. Peripheral vascular occlusive disease 10. Gastroesophageal reflux disease 11. Coronary artery disease 12. Seizure disorder 13. MRSA 14. Claustrophobia 15. Motion sickness 16. Hyperlipidemia 17. Congestive heart failure, PLAN: 1. Since admission, patient reports decreased abdominal distention however persistent right lower quadrant abdominal pain. Features and clinical exam consistent with peritonitis. Urgent exploratory laparotomy with lysis of adhesions, bowel resection and possible ostomy described. She is elevated risk due to pre-existing peripheral vascular occlusive disease, insulin-dependent diabetes and comorbidities. 2. Urgent cardiac risk assessment with EKG and echo described 3. Adjustment of IV fluids from 75 mL/h to 2 L bolus normal saline and 150 mL per hour as patient has nasogastric tube with minimal oral intake for 4 days 4. Recommend PICC line for TPN management due to no oral intake in 4 days 5. Stat PT/INR including type and screen due to high risk of bleeding and recent history of antiplatelet therapy 6. Chest x-ray for preoperative assessment 7. Overall, patient advised higher risk for complications due to length of illness, pre-existing comorbidities, including risk of persistent hernia following surgery. Objective - Vital Signs Vital signs: Vital Signs Temp 97.6 F 10/27/22 08:00 Pulse 102 H 10/27/22 08:00 Resp 15 10/27/22 08:00 BP 160/79 10/27/22 08:00 Pulse Ox 93 L 10/27/22 08:00 FiO2 Intake & Output 10/26/22 10/27/22 10/27/22 18:59 06:59 18:59 Output Total 400 600 Balance -400 -600 Output: Gastric Drainage 400 600 Other: Voiding Method Toilet # Voids 1 3 - Labs CBC & Chem 7: 10/26/22 05:35 10/26/22 05:35 Labs: Abnormal Lab Results - Last 24 Hours (Table) 10/26/22 10/26/22 10/26/22 Range/Units 11:15 16:37 21:15 POC Glucose (mg/dL) 179 H 184 H 190 H (70-110) mg/dL 10/27/22 10/27/22 Range/Units 00:45 05:50 POC Glucose (mg/dL) 187 H 186 H (70-110) mg/dL Microbiology - Last 24 Hours (Table) 10/25/22 06:33 Blood Culture - Preliminary Blood
[2022-10-27 12:12] LABS: Glucose,Whole Blood 152 mg/dL (70-110)
[2022-10-27 12:47] LABS: Prothrombin Time 10.4 sec (9.0-12.0)
--- NOTE | 2022-10-27 13:27 | P.CRDCN ---
History of Present Illness History of present illness: HISTORY OF PRESENT ILLNESS: This is a 52-year-old female with a past medical history significant for hyperlipidemia, hypertension, diabetes, and peripheral arterial disease with previous right lower extremity intervention in 2021. Patient follows in the office with Dr. Ramon. We have been asked to see the patient in consultation for cardiac risk assessment. Patient examined at the bedside. Patient presented to the hospital for chief complaint of abdominal pain. Patient was found have a small bowel obstruction and is scheduled for surgical intervention today with general surgery. The patient denies having any chest pain or pressure. She denies shortness of breath. The patient states that [place] and is generally fairly active. She states that she can walk 1 block without having any chest pain or shortness of breath. She states that she saw her avionics installer in the office recently and was scheduled for outpatient stress testing and an echocardiogram. * EKG reveals sinus mechanism with no signs of acute ischemia. * Chest xray esophagogastric tube terminates within the gastric body, proximal sidehole at GE junction. * Laboratory data: WBC 7.46. Hemoglobin 11.9. Daily count 204. Sodium 140. Potassium 3.5. BUN 9.1. Creatinine 0.40. * Current home cardiac medications include Brilinta 90mg BID, aspirin 81 mg daily, Lipitor 40 mg at night, lisinopril 10 mg daily, Lasix 20 mg daily * Most recent echocardiogram obtained in February 2021 revealed ejection fraction 55-60%, mild MR, mild TR REVIEW OF SYSTEMS: At the time of my exam: CONSTITUTIONAL: Denies fever or chills. HEENT: Denies blurred vision, vision changes, or eye pain. Denies hemoptysis CARDIOVASCULAR: Denies chest pain. Denies orthopnea. Denies PND. Denies palpitations RESPIRATORY: Denies shortness of breath. GASTROINTESTINAL: Denies abdominal pain. Denies nausea or vomiting. HEMATOLOGIC: Denies bleeding disorders. GENITOURINARY: Denies any blood in urine. SKIN: Denies pruitis. Denies rash. PHYSICAL EXAM: VITAL SIGNS: Reviewed. GENERAL: Well-developed in no acute distress. HEENT: Head is normocephalic. Pupils are equal, round. Sclerae anicteric. Mucous membranes of the mouth are moist. Neck supple. No JVD or thyromegaly LUNGS: Respirations even and unlabored. Lungs essentially clear to auscultation bilaterally. HEART: Regular rate and rhythm. S1 and S2 heard. ABDOMEN: Soft. Nondistended. Nontender. EXTREMITIES: Normal range of motion. No clubbing or cyanosis. Peripheral pulses intact. No lower extremity edema NEUROLOGIC: Awake and alert. Oriented x 3. ASSESSMENT: Abdominal pain Small bowel obstruction Hypertension Hyperlipidemia Diabetes Peripheral arterial disease with previous right lower extremity intervention, 2021 Former nicotine dependence PLAN: 2-D echo obtained and reviewed by Dr. Anglin. Continue current cardiac medications Patient without complaints of angina of shortness of breath. She is not in congestive heart failure and is euvolemic upon examination. There are no absolute contraindications from a cardiac standpoint for patient to proceed with surgery Further recommendations pending patient's course Nurse practitioner note has been reviewed by physician. Signing provider agrees with the documented findings, assessment, and plan of care. Past Medical History Past Medical History: Diabetes Mellitus, GERD/Reflux, Hyperlipidemia, Hyperten giancarlo, Osteoarthritis (OA), Seizure Disorder Additional Past Medical History / Comment(s): Hx bowel obstruction, kidney stones. migraines, last seizure 2013-due to cymbalta, varicose veins, rt lower leg edema, abdominal hernia History of Any Multi-Drug Resistant Organisms: None Reported, MRSA Date of last positivie culture/infection: 2012 MDRO Source:: stomach mesh Past Surgical History: Back Surgery, Bladder Surgery, Section, Cholecystectomy, Hernia Repair, Hysterectomy, Orthopedic Surgery, Tonsillectomy Additional Past Surgical History / Comment(s): Ablation of lumbar nerve, COLONOSCOPY. stent rt leg, hernia repair with mesh(mesh later removed due to infection), arthroscopy left knee Past Anesthesia/Blood Transfusion Reactions: Motion Sickness Additional Past Anesthesia/Blood Transfusion Reaction / Comment(s): Claustrophobia. Date of Last Stent Placement:: 01/04/2021 Past Psychological History: Anxiety, Panic Disorder Additional Psychological History / Comment(s): claustrophobia, "anxiety before procedures" Smoking Status: Former smoker Past Alcohol Use History: None Reported Additional Past Alcohol Use History / Comment(s): Started smoking in 1985 and quit 01/2021. Past Drug Use History: None Reported - Past Family History Mother Family Medical History: Cancer Additional Family Medical History / Comment(s): Mother had breast cancer Father Family Medical History: Cancer Additional Family Medical History / Comment(s): Father at 42 yrs of age from agent orange exposure. Medications and Allergies Home Medications Medication Instructions Recorded Confirmed Type Omeprazole 20 mg PO HS #30 cap 03/20/21 10/24/22 Rx lisinopriL [Zestril] 10 mg PO DAILY #30 tab 03/20/21 10/24/22 Rx Atorvastatin [Lipitor] 40 mg PO HS 03/26/21 10/24/22 History Docusate [Colace] 100 mg PO BID cap 04/29/21 10/24/22 Rx Insulin Aspart [NovoLOG Flexpen] See Protocol SQ TID-W/MEALS PRN 04/29/21 10/24/22 Rx #10 ml Aspirin 81 mg PO DAILY 09/10/21 10/24/22 History Pregabalin [Lyrica] 75 mg PO BID 30 Days #60 cap 01/03/22 10/24/22 Rx Ticagrelor [Brilinta] 90 mg PO BID #60 tab 01/03/22 10/24/22 Rx Insulin Glargine,Hum.rec.anlog 26 unit SQ HS 04/22/22 10/24/22 History [Basaglar Kwikpen U-100] Loratadine [Claritin] 10 mg PO DAILY PRN 04/22/22 10/24/22 History Melatonin 5 mg PO HS 04/22/22 10/24/22 History Multivitamins, Thera [Multivitamin 1 tab PO DAILY 07/23/22 10/24/22 History (formulary)] Cholecalciferol [Vitamin D3 (25 25 mcg PO DAILY 08/20/22 10/24/22 History Mcg = 1000 Iu)] HYDROcodone/APAP 7.5-325MG [[place] 1 tab PO Q6HR PRN 30 Days #120 tab 10/01/22 10/24/22 Rx 7.5-325] Cyclobenzaprine [Flexeril] 5 mg PO TID PRN 30 Days #90 tab 10/08/22 10/24/22 Rx Morphine Sulfate ER [Ms Contin] 15 mg PO Q12HR 30 Days #60 tab 10/08/22 10/24/22 Rx Andrew/D3/Mag11/Zinc/Recruiting Intern/Roque/Bor 1 tab PO BID 10/24/22 10/24/22 History [Caltrate 600+D Plus Tablet] Furosemide [Lasix] 20 mg PO DAILY 10/24/22 10/24/22 History Potassium Chloride ER [K-Dur 10] 10 meq PO DAILY 10/24/22 10/24/22 History Allergies Allergy/AdvReac Type Severity Reaction Status Date / Time casipberry Allergy Severe throat Verified 08/13/22 11:08 swelling, buprenorphine [From Suboxone] Allergy Swelling Verified 08/13/22 11:08 duloxetine [From Cymbalta] Allergy Confusion/s Verified 08/13/22 11:08 eizures gabapentin Allergy Swelling Verified 08/13/22 11:08 naloxone [From Suboxone] Allergy Swelling Verified 08/13/22 11:08 NSAIDS (Non-Steroidal Allergy Unknown Verified 08/13/22 11:08 Anti-Inflamma Childhood Physical Exam Vitals: Vital Signs Temp Pulse Resp BP Pulse Ox 10/27/22 08:00 97.6 F 102 H 15 160/79 93 L 10/27/22 02:00 98.2 F 107 H 17 181/96 93 L 10/26/22 19:41 98.0 F 103 H 19 128/69 95 10/26/22 13:40 98.4 F 93 16 144/85 94 L Intake and Output 10/26/22 10/27/22 10/27/22 22:59 06:59 14:59 Output Total 350 600 Balance -350 -600 Output: Gastric Drainage 350 600 Other: Voiding Method Toilet # Voids 1 3 Results 10/26/22 05:35 10/26/22 05:35 Coagulation 10/27/22 Range/Units 12:04 PT 10.4 (9.0-12.0) sec Current Medications Generic Name Dose Route Start Last Admin Trade Name Freq PRN Reason Stop Dose Admin Aspirin 81 mg 10/26/22 09:00 10/27/22 08:02 Aspirin 81 Mg PO Not Given DAILY SADIQ Atorvastatin Calcium 40 mg 10/25/22 21:00 10/26/22 20:17 Atorvastatin 40 Mg Tab PO Not Given HS SADIQ Dextrose/Water 25 ml 10/25/22 09:19 Dextrose 50% Syringe 50 Ml IVP PER PROTOCOL PRN Hypoglycemia Protocol Dextrose/Water 50 ml 10/25/22 09:19 Dextrose 50% Syringe 50 Ml IVP PER PROTOCOL PRN Hypoglycemia Protocol Heparin Sodium (Porcine) 5,000 unit 10/27/22 10:30 Heparin Sodium,Porcine/Pf 5,000 Unit/0.5 Ml Syringe SQ Q12HR SADIQ Hydromorphone HCl 1 mg 10/26/22 08:27 10/27/22 12:15 Hydromorphone 1 Mg/Ml 1 Ml Syringe IVP 1 mg Q3HR PRN Administration Moderate Pain (Scale 4 to 6) Sodium Chloride 1,000 mls @ 150 mls/hr 10/27/22 10:30 Saline 0.9% IV .Q6H40M SADIQ Insulin Aspart 0 unit 10/26/22 12:00 10/27/22 12:14 Insulin Aspart (Novolog) 100 Unit/Ml Vial SQ Not Given Q6H [facility] Protocol Insulin Detemir 10 unit 10/26/22 21:00 10/26/22 21:14 Insulin Detemir (Levemir) 100 Unit/Ml Syr SQ 10 unit HS SADIQ Administration Naloxone HCl 0.2 mg 10/24/22 22:17 Naloxone 0.4 Mg/Ml 1 Ml Vial IV Q2M PRN Opioid Reversal Ondansetron HCl 4 mg 10/25/22 00:50 10/27/22 06:56 Ondansetron 4 Mg/2 Ml Vial IVP 4 mg Q6HR PRN Administration Nausea And Vomiting Pantoprazole Sodium 40 mg 10/25/22 09:00 10/27/22 08:02 Pantoprazole 40 Mg/10 Ml Vial IV 40 mg DAILY SADIQ Administration Pregabalin 75 mg 10/25/22 21:00 10/27/22 08:02 Pregabalin 75 Mg Cap PO Not Given BID SADIQ Intake and Output 10/26/22 10/27/22 10/27/22 22:59 06:59 14:59 Output Total 350 600 Balance -350 -600 Output: Gastric Drainage 350 600 Other: Voiding Method Toilet # Voids 1 3 10/26/22 05:35 10/26/22 05:35
[2022-10-27 13:31] LABS: Basophils # (A) 0.03 X 10*3/uL (0.00-0.10); Basophils % (A) 0.3 %; Eosinophils # (A) 0.04 X 10*3/uL (0.04-0.35); Eosinophils % (A) 0.4 %; HCT 38.7 % (37.2-46.3); HGB 12.4 d/dL (12.0-15.0); Lymphocytes # (A) 2.13 X 10*3/uL (0.90-5.00); MCH 26.8 pg (27.0-32.0); MCV 83.8 FL (80.0-97.0); Monocytes # (A) 0.72 X 10*3/uL (0.20-1.00); Monocytes % (A) 7.1 %; NRBC Per 100 WBC 0 X 10*3/uL (0.00-0.01); Neutrophils # (A) 7.13 X 10*3/uL (1.80-7.70); Neutrophils % (A) 70.5 %; Platelet Count 207 X 10*3/uL (140-440); RBC 4.62 X 10*6/uL (4.10-5.20); RDW 13.9 % (11.5-14.5); WBC 10.12 X 10*3/uL (4.50-10.00)
[2022-10-27] MEDS ORDERED: LIDOCAINE 1% INJ 10MG/ML (5 ML VIAL-PF) SQ ONE (13:34)
--- NOTE | 2022-10-27 13:51 | IR ---
PICC LINE PLACEMENT: HISTORY: TPN therapy PROCEDURE: Ultrasound and fluoroscopic guidance of PICC line placement. COMPLICATIONS: None ANESTHESIA: 1. 1% Lidocaine locally. FINDINGS/TECHNIQUE: The procedure was explained to the patient. The risks, complications, benefits and alternatives were discussed and any questions were answered. Informed consent was obtained. The patient was placed supine on the fluoroscopic table and prepped and draped in the usual sterile [facility] ion. Utilizing a 21 gauge needle and sonographic and fluoroscopic guidance, access in the vein was achieved and there is placement of a 0.018 guidewire. The vein is patent. A 5-Fr sheath was placed over the guidewire. The guidewire and dilator were removed and a 5-F. Double lumen PICC line was pl aced through the sheath with the tip at the level of the SVC. The sheath was removed, the catheter w as flushed and sutured into position. The patient was stable throughout the procedure and remained s table upon discharge from the Department of Radiology. The vein puncture was patent under ultrasound. A chang scale image was obtained to document patency of the vein punctured. All elements of the maximal barrier technique were utilized. FLUOROSCOPY TIME: [id number] DAP IMPRESSION: Successful PICC double lumen line placement under ultrasound and fluoroscopic guidance.
[2022-10-27 14:18] LABS: Blood Urea Nitrogen 6.4 mg/dL (9.0-27.0); Calcium 8.8 mg/dL (8.7-10.3); Carbon Dioxide 20.6 mmol/L (21.6-31.8); Chloride 104 mmol/L (96-109); Glucose 190 mg/dL (70-110); Magnesium 1.9 mg/dL (1.5-2.4); Potassium 3.6 mmol/L (3.5-5.5); Sodium 138 mmol/L (135-145)
[2022-10-27] MEDS ORDERED: LACTATED RINGERS 1,000 ML IV ONE ×3 (14:26→19:22)
[2022-10-27] MEDS ORDERED: ONDANSETRON 4 MG/2 ML VIAL IVP ONE (14:39)
--- NOTE | 2022-10-27 14:44 | P.PN ---
Subjective Progress Note Date: 10/27/22 Objective - Vital Signs Vital signs: Vital Signs Temp 97.6 F 10/27/22 08:00 Pulse 102 H 10/27/22 08:00 Resp 15 10/27/22 08:00 BP 160/79 10/27/22 08:00 Pulse Ox 93 L 10/27/22 08:00 FiO2 Intake & Output 10/26/22 10/27/22 10/27/22 18:59 06:59 18:59 Output Total 400 600 Balance -400 -600 Weight 99.337 kg Output: Gastric Drainage 400 600 Other: Voiding Method Toilet # Voids 1 3 - Exam PHYSICAL EXAM: VITAL SIGNS: As above GENERAL: Alert and oriented 3, Sitting up in bed, no acute distress HEENT: Normocephalic, Conjunctivae normal. eyes normal. NECK: Supple, No JVD. CARDIOVASCULAR: S1, S2 regular. No murmur RESPIRATION: Unlabored, Breath sounds diminished in the bases. No rhonchi or crackles. ABDOMEN: Obese, Soft, diffuse tenderness, extremely hypoactive bowel sounds LEGS: No edema. no swelling NERVOUS SYSTEM: Cranial N 2-12 grossly normal. No focal deficits. Strength and sensation grossly intact. Skin: Warm and dry, no rash - Labs CBC & Chem 7: 10/27/22 07:59 10/27/22 07:59 Labs: Abnormal Lab Results - Last 24 Hours (Table) 10/26/22 10/26/22 10/27/22 Range/Units 16:37 21:15 00:45 WBC (4.50-10.00) X 10*3/uL MCH (27.0-32.0) pg Carbon Dioxide (21.6-31.8) mmol/L Anion Gap (4.00-12.00) mmol/L BUN (9.0-27.0) mg/dL Creatinine (0.6-1.5) mg/dL Glucose (70-110) mg/dL POC Glucose (mg/dL) 184 H 190 H 187 H (70-110) mg/dL 10/27/22 10/27/22 10/27/22 Range/Units 05:50 07:59 07:59 WBC 10.12 H (4.50-10.00) X 10*3/uL MCH 26.8 L (27.0-32.0) pg Carbon Dioxide 20.6 L (21.6-31.8) mmol/L Anion Gap 13.40 H (4.00-12.00) mmol/L BUN 6.4 L (9.0-27.0) mg/dL Creatinine 0.4 L (0.6-1.5) mg/dL Glucose 190 H (70-110) mg/dL POC Glucose (mg/dL) 186 H (70-110) mg/dL 10/27/22 Range/Units 12:10 WBC (4.50-10.00) X 10*3/uL MCH (27.0-32.0) pg Carbon Dioxide (21.6-31.8) mmol/L Anion Gap (4.00-12.00) mmol/L BUN (9.0-27.0) mg/dL Creatinine (0.6-1.5) mg/dL Glucose (70-110) mg/dL POC Glucose (mg/dL) 152 H (70-110) mg/dL Microbiology - Last 24 Hours (Table) 10/25/22 06:33 Blood Culture - Preliminary Blood Assessment and Plan Assessment: Acute abdominal pain, partial small bowel obstruction and ventral hernia with multiple abdominal adhesions, in a patient with history of bowel obstruction, surgical repair pending Leukocytosis secondary to the above Diabetes mellitus type 2, hyperglycemia, hemoglobin A1c 11.5, further diabetic education outpatient in clinic with PCP Hypertension Hyperlipidemia History of seizure disorder Gastroesophageal reflux disease Former nicotine dependence Arthritis Morbid obesity, BMI 35 Plan: Continue on current medication regime ,monitoring and symptomatic treatment. IV fluid hydration. Pain management/NGT maintenance as per general surgery.NPO, surgery pending. Aggressive pulmonary toileting with incentive spirometer reinforced. The impression and plan of care has been dictated as directed. : I performed a history and examination of this patient, discussed the same with the dictator. I agree with the dictator's note ,documented as a scribe. Any additional findings or plans will be noted.
[2022-10-27 14:57] LABS: Glucose,Whole Blood 152 mg/dL (70-110)
[2022-10-27] MEDS: HEPARIN SODIUM,PORCINE/PF 5,000 UNIT/0.5 ML SYRINGE SQ SCH ×2 (15:33→22:22)
[2022-10-27] MEDS ORDERED: MVI, ADULT NO.4 WITH VIT K 10 ML, TRACE (CONC-1ML/DOSE) 1 ML in AMINO ACID 5%-D20W+LYTE... IV SCH ×3 (16:00)
--- NOTE | 2022-10-27 16:02 | CA ---
Transthoracic Echo Report Name: Emely You Age: 52 Gender: F : 1970 Exam Date: 10/27/2022 11:48 Exam Location: [facility] Ht (in): 66 Wt (lb): 219 Ordering Physician: Chacha Mckenna MD Attending/Referring Phys: Clarisa SMITH Scaler Packer Niyah Lambert RDCS Procedure CPT: Indications: abnormal ekg Cardiac Hx: Technical Quality: Poor Contrast 1: Total Dose (mL): Contrast 2: Total Dose (mL): MEASUREMENTS (Male / Female) Normal Values 2D ECHO LV Diastolic Diameter PLAX 4.9 cm 4.2 - 5.9 / 3.9 - 5.3 cm LV Systolic Diameter PLAX 3.6 cm IVS Diastolic Thickness 1.5 cm 0.6 - 1.0 / 0.6 - 0.9 cm LVPW Diastolic Thickness 1.4 cm 0.6 - 1.0 / 0.6 - 0.9 cm LV Relative Wall Thickness 0.6 LA Systolic Diameter LX 3.9 cm 3.0 - 4.0 / 2.7 - 3.8 cm LA Volume 51.0 cm??? 18 - 58 / 22 - 52 cm??? M-MODE Aortic Root Diameter MM 3.5 cm AV Cusp Separation MM 2.2 cm DOPPLER AV Peak Velocity 128.4 cm/s AV Peak Gradient 6.6 mmHg MV Area PHT 4.7 cm??? Mitral E Point Velocity 104.7 cm/s Mitral A Point Velocity 122.5 cm/s Mitral E to A Ratio 0.9 MV Deceleration Time 160.0 ms MV E' Velocity 8.4 cm/s Mitral E to MV E' Ratio 12.4 TR Peak Velocity 249.2 cm/s TR Peak Gradient 24.8 mmHg Right Ventricular Systolic Press 29.8 mmHg FINDINGS Left Ventricle Left ventricular ejection fraction is estimated at 60-65 %. Left ventricular cavity size normal. Moderately increased septal wall thickness. Moderately increased posterior wall thickness. Right Ventricle Right ventricle not well visualized. Right Atrium Normal right atrial size. Left Atrium Normal left atrial size. Mitral Valve Structurally normal mitral valve. Trace mitral regurgitation. Aortic Valve Aortic valve not well visualized. No aortic valve stenosis or regurgitation. Tricuspid Valve Structurally normal tricuspid valve. Mild tricuspid regurgitation. Pulmonic Valve Pulmonic valve not well visualized. Pericardium Normal pericardium. No pericardial effusion. Aorta Normal size aortic root and proximal ascending aorta. CONCLUSIONS Left ventricular ejection fraction 60-65% Moderate increased left ventricular wall thickness Mild tricuspid regurgitation RVSP 30 Previewed by: Dr. Bhavik Anglin DO (Electronically Signed) Final Date: 27 October 2022 16:00
[2022-10-27] MEDS ORDERED: PROPOFOL 10 MG/ML 20 ML VIAL IV ONE (16:13)
[2022-10-27] MEDS ORDERED: KETAMINE 10 MG/ML 20 ML VIAL ONE (16:13)
[2022-10-27] MEDS ORDERED: NEOSTIGMINE 1 MG/ML 10 ML VIAL ONE (16:13)
[2022-10-27] MEDS ORDERED: fentaNYL (PF) 50 MCG/ML 2 ML AMP ONE (16:13)
[2022-10-27] MEDS ORDERED: GLYCOPYRROLATE 0.2 MG/ML 2 ML VIAL ONE (16:13)
[2022-10-27] MEDS ORDERED: LIDOCAINE 2% INJ 20 MG/ML (2 ML VIAL) ONE (16:13)
[2022-10-27] MEDS ORDERED: HYDROmorphone (PF) 1 MG/ML ONE (16:13)
[2022-10-27] MEDS ORDERED: SUCCINYLCHOLINE CHLORIDE 200 MG/10 ML VIAL IV ONE (16:13)
[2022-10-27] MEDS ORDERED: MIDAZOLAM 2 MG/2 ML VIAL ONE (16:13)
[2022-10-27] MEDS ORDERED: ROCURONIUM 10 MG/ML (5 ML VIAL) IV ONE (16:13)
[2022-10-27] MEDS ORDERED: SODIUM CHLORIDE 0.9% 50 ML with ceFAZolin 2,000 MG IV ONE ×2 (16:18)
[2022-10-27] MEDS ORDERED: ceFAZolin 1,000 MG VIAL ONE (16:45)
[2022-10-27] MEDS ORDERED: SODIUM CHLORIDE 0.9% 100 ML BAG ONE (16:45)
--- NOTE | 2022-10-27 19:46 | P.OP ---
Date of Procedure: 10/27/22 Description of Procedure: SURGEON: ROD DUNBAR MD STAINLESS STEEL FINISHER: NONE PREOPERATIVE DIAGNOSES: 1. Small bowel obstruction, mechanical with localized peritonitis, right lower quadrant 2. Large incarcerated abdominal wall hernia, recurrent with small and large bowel incarceration 3. Morbid obesity due to excess calories 4. Body mass index of 35.3, initial 5. Diabetes type 2, insulin-dependent 6. Chronic pain syndrome 7. Diabetic neuropathy 8. Hypertensive heart disease 9. Peripheral vascular occlusive disease 10. Gastroesophageal reflux disease 11. Coronary artery disease 12. Seizure disorder 13. MRSA 14. Claustrophobia 15. Motion sickness 16. Hyperlipidemia POSTOPERATIVE DIAGNOSES: 1. Severe intra-abdominal adhesions with small bowel obstruction 2. Large incarcerated abdominal wall hernia, recurrent with small and large bowel incarceration 3. Morbid obesity due to excess calories 4. Body mass index of 35.3, initial 5. Diabetes type 2, insulin-dependent 6. Chronic pain syndrome 7. Diabetic neuropathy 8. Hypertensive heart disease 9. Peripheral vascular occlusive disease 10. Gastroesophageal reflux disease 11. Coronary artery disease 12. Seizure disorder 13. MRSA 14. Claustrophobia 15. Motion sickness 16. Hyperlipidemia 17. Severe pelvic adhesions 18. Panniculitis OPERATION: 1. Exploratory laparotomy with extensive lysis of adhesions for small loop bowel obstruction and malignant severe intestinal adhesions over 3 hours 2. Application of incisional wound VAC system, 25 cm x 4 cm, PREVENA ANESTHESIA: General. ESTIMATED BLOOD LOSS: 150 mL. SPECIMENS REMOVED: None COMPLICATIONS: None OPERATIVE FINDINGS: 1. 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 2. Severe adhesions confirmed along the right lower quadrant and pelvis. 3. Large incisional hernia, 10 x 10 cm involving small bowel and large bowel reduced 4. Terminal ileum adherent to the retroperitoneum/spine with adhesions resected INDICATIONS: The patient is a 52-year-old female who presented with pre-existing incisional hernia presented with acute abdominal pain due to bowel obstruction. Patient had elected to hold on surgical intervention for 3-4 days. She persisted to have right lower quadrant abdominal pain new development of peritonitis. Given her moderate cardiac history, urgent cardiac risk assessment was performed. Surgical intervention was discussed with the patient including possible ostomy creation, small bowel or large bowel resection. Benefits and risks were thoroughly described including postoperative intensive care unit placement and placement of breathing tube. Informed consent had been obtained. DESCRIPTION OF PROCEDURE: The patient was brought to the operating room, laid in supine position. After general induction, the abdomen had been prepped and draped in a standard sterile fashion. An Ioban draping was placed. A Byrne catheter was placed. Additionally, she had a pre-existing nasogastric tube from the floor. Prior to incision, a timeout protocol was performed by the surgical team regarding the patient's name including procedures being performed. The Ioban draping on the skin was marked with indelible marker and a midline incision was made using #10 blade, of the epigastrium down to the pubis. Bleeding was controlled with electro-Bovie cautery. Entry into the abdomen had occurred along the epigastrium. Immediately dense adhesions were found along the abdominal wall whereby digital palpation and blunt dissection were performed. Next, the rest of the abdominal cavity was entered using electro-Bovie cautery, Huangbaum without any injury to bowel. Moderate interloop adhesions which were to dense including to the abdominal wall was also confirmed. Severe adhesions incorporated in the right lower quadrant pelvis and retroperitoneum was identified. Using a Metzenbaum scissor, sharp dissection was performed. She had near frozen abdomen. Cautious and careful dissection was performed using primarily sharp dissection. Minimal blunt dissection could be performed given the near cemented-type of adhesions which were found. The mid-jejunum was carefully freed. The rest of lysis of adhesions and enterolysis had been continued distally. A large incisional hernia defect involving the small and large bowel were released from the fascial edges using Metzenbaum. Fascial defect 10 x 10 cm of the epigastrium was confirmed. Once the distal jejunum and ileum were freed, rest of the lysis of adhesions had occurred proximally. For the duodenum and proximal jejunum, minimal adhesions were encountered. Moderate adhesions were confirmed primarily affecting the mid-jejunum distally, which were all completely lysed. No full-thickness enterotomy had occurred throughout the entire case. Extensive lysis of adhesions had occurred for approximately 3 hours. Next, the bowel was once again ran from the ligament of Treitz distally to the ileocecal valve. Complete lysis of adhesions was obtained. Hemostasis was checked. Next, the abdomen was closed using double-stranded 0- PDS proximally and distally. Stainless skin macario were applied. Incision of 22 x 4 cm was covered with an incisional wound VAC system, PREVENA. At the end of the procedure, the sponge needle and instrument count were verified correct by the surgical training specialist. The patient was transferred to recovery room in stable condition. Intraoperative findings were thoroughly discussed with her family at bedside. They demonstrated understanding of the care plan regarding likely ileus due to pre-existing chronic pain syndrome and high narcotic use. Otherwise family were pleased with the level of care.
[2022-10-27] MEDS ORDERED: METOCLOPRAMIDE 5 MG/ML 2 ML VIAL IVP PRN (19:47)
[2022-10-27 20:04] LABS: Glucose,Whole Blood 214 mg/dL (70-110)
[2022-10-27] MEDS ORDERED: INSULIN ASPART (NovoLOG) 100 UNIT/ML VIAL SQ ONE (20:17)
[2022-10-27 20:38] LABS: Ionized Calcium 4.9 mg/dL (4.5-5.3)
[2022-10-27 20:45] LABS: Albumin 2.9 g/dL (3.5-5.0); Phosphorus 3.4 mg/dL (2.5-4.5)
[2022-10-27] MEDS: HYDROmorphone PCA 10 MG/50 ML BAG IV SCH (21:04)
[2022-10-27] MEDS: ATORVASTATIN 40 MG TAB PO SCH (22:21)
[2022-10-27] MEDS: INSULIN DETEMIR (LEVEMIR) 100 UNIT/ML SYR SQ SCH (22:21)
[2022-10-28] MEDS: INSULIN ASPART (NovoLOG) 100 UNIT/ML VIAL SQ SCH ×4 (00:28→17:55)
[2022-10-28] MEDS: KETOROLAC 15 MG/ML 1 ML VIAL IVP SCH ×4 (00:29→17:37)
[2022-10-28 01:15] LABS: Glucose,Whole Blood 218 mg/dL (70-110)
[2022-10-28] MEDS: HYDROmorphone PCA 10 MG/50 ML BAG IV SCH ×3 (03:30→20:20)
[2022-10-28] MEDS: ONDANSETRON 4 MG/2 ML VIAL IVP PRN (03:49)
[2022-10-28 06:01] LABS: Glucose,Whole Blood 249 mg/dL (70-110)
[2022-10-28] MEDS: SODIUM CHLORIDE 0.9% 1,000 ML IV SCH ×3 (06:45→17:44)
[2022-10-28 07:10] LABS: African American GFR (CKD) >90 (>60 ml/min/1.73 sqM); Anion Gap 6 mmol/L; Blood Urea Nitrogen 13 mg/dL (7-17); Carbon Dioxide 20 mmol/L (22-30); Chloride 108 mmol/L (98-107); Glucose 258 mg/dL (74-99); Magnesium 1.7 mg/dL (1.6-2.3); Non-African American GFR(CKD) >90 (>60 ml/min/1.73 sqM); Phosphorus 2.9 mg/dL (2.5-4.5); Potassium 3.7 mmol/L (3.5-5.1); Sodium 134 mmol/L (137-145)
[2022-10-28] MEDS: PANTOPRAZOLE 40 MG/10 ML VIAL IV SCH (08:11)
[2022-10-28] MEDS: ASPIRIN 81 MG PO SCH (08:30)
[2022-10-28] MEDS: HEPARIN SODIUM,PORCINE/PF 5,000 UNIT/0.5 ML SYRINGE SQ SCH ×2 (08:30→21:17)
[2022-10-28] MEDS: lisinopriL 10 MG TAB PO SCH (08:30)
[2022-10-28] MEDS: PREGABALIN 75 MG CAP PO SCH ×2 (08:30→21:17)
[2022-10-28] MEDS: LACTULOSE 20 GM/30 ML CUP PO SCH (08:31)
--- NOTE | 2022-10-28 09:18 | P.PN ---
Subjective Progress Note Date: 10/28/2210/27 This is a 52-year-old female admitted with abdominal pain, large abdominal wall hernia, scheduled for surgery today. Maintained on IV fluid hydration. NGT to LIS. Reports "cramping" abdominal pain improving from admission. Last bowel movement, diarrhea 1-1/2 days prior. Positive nausea. Denies chest pain, palpitations or shortness of breath. 10/28/2022 status post exploratory laparotomy with extensive lysis of adhesions for small bowel obstruction and malignant severe intestinal adhesions over 3 hours, with wound vac, postop day #1. Positive pain, wearing binder. Denies nausea. NG tube with 1025ml drainage in 24 hours. Afebrile. Renal function stable. Sodium 134. Blood sugars elevated in the 200s. Maintaining O2 sats in the mid 90s on 3 L nasal cannula. Objective - Vital Signs Vital signs: Vital Signs Temp 98.8 F 10/28/22 07:36 Pulse 99 10/28/22 07:36 Resp 23 10/28/22 07:36 BP 112/67 10/28/22 07:36 Pulse Ox 95 10/28/22 08:44 FiO2 Intake & Output 10/27/22 10/28/22 10/28/22 18:59 06:59 18:59 Intake Total 2049 2470 Output Total 600 1275 Balance 1450 1195 Weight 99.337 kg Intake: IV 2049 400 Intake, IV Titration 2069 Amount Mvi, Adult No.4 with Vit 270 K 10 ml Trace (Conc-1Ml/ Dose) 1 ml In Amino Acid 5%-D20w+Lytes*E* 1,000 ml @ 30 mls/hr IV .Q24H [facility] Rx#:[id number] Sodium Chloride 0.9% 1, 1800 000 ml @ 150 mls/hr IV . Q6H40M [facility] Rx#:[id number] Output: Gastric Drainage 600 425 Urine 700 Estimated Blood Loss 150 Other: Voiding Method Indwelling Catheter Indwelling Catheter # Voids 4 - Exam PHYSICAL EXAM: VITAL SIGNS: As above GENERAL: Alert and oriented 3, Sitting up in bed, no acute distress HEENT: Normocephalic, Conjunctivae normal. eyes normal.NGT with Bilious drainage. NECK: Supple, No JVD. CARDIOVASCULAR: S1, S2 regular. No murmur RESPIRATION: Unlabored, Breath sounds diminished in the bases. No rhonchi or crackles. ABDOMEN: Soft, status post surgery, wearing an abdominal binder.Prevana wound vac. LEGS: No edema. no swelling NERVOUS SYSTEM: Cranial N 2-12 grossly normal. No focal deficits. Strength and sensation grossly intact. Skin: Warm and dry, no rash - Labs CBC & Chem 7: 10/27/22 07:59 10/28/22 06:28 Labs: Abnormal Lab Results - Last 24 Hours (Table) 10/27/22 10/27/22 10/27/22 Range/Units 07:59 07:59 12:10 WBC 10.12 H (4.50-10.00) X 10*3/uL MCH 26.8 L (27.0-32.0) pg Sodium (137-145) mmol/L Chloride (98-107) mmol/L Carbon Dioxide 20.6 L (21.6-31.8) mmol/L Anion Gap 13.40 H (4.00-12.00) mmol/L BUN 6.4 L (9.0-27.0) mg/dL Creatinine 0.4 L (0.6-1.5) mg/dL Glucose 190 H (70-110) mg/dL POC Glucose (mg/dL) 152 H (70-110) mg/dL Calcium (8.4-10.2) mg/dL Albumin (3.5-5.0) g/dL 10/27/22 10/27/22 10/27/22 Range/Units 14:52 20:02 20:02 WBC (4.50-10.00) X 10*3/uL MCH (27.0-32.0) pg Sodium (137-145) mmol/L Chloride (98-107) mmol/L Carbon Dioxide (21.6-31.8) mmol/L Anion Gap (4.00-12.00) mmol/L BUN (9.0-27.0) mg/dL Creatinine (0.6-1.5) mg/dL Glucose (70-110) mg/dL POC Glucose (mg/dL) 152 H 214 H (70-110) mg/dL Calcium (8.4-10.2) mg/dL Albumin 2.9 L (3.5-5.0) g/dL 10/28/22 10/28/22 10/28/22 Range/Units 01:14 05:54 06:28 WBC (4.50-10.00) X 10*3/uL MCH (27.0-32.0) pg Sodium 134 L (137-145) mmol/L Chloride 108 H (98-107) mmol/L Carbon Dioxide 20 L (21.6-31.8) mmol/L Anion Gap (4.00-12.00) mmol/L BUN (9.0-27.0) mg/dL Creatinine 0.42 L (0.6-1.5) mg/dL Glucose 258 H (70-110) mg/dL POC Glucose (mg/dL) 218 H 249 H (70-110) mg/dL Calcium 8.0 L (8.4-10.2) mg/dL Albumin (3.5-5.0) g/dL Microbiology - Last 24 Hours (Table) 10/25/22 06:33 Blood Culture - Preliminary Blood Assessment and Plan Assessment: Acute abdominal pain, partial small bowel obstruction and ventral hernia with multiple abdominal adhesions, in a patient with history of bowel obstruction, status post exploratory laparotomy with extensive lysis of adhesions for small bowel obstruction and malignant severe intestinal adhesions over 3 hours, with wound vac. Acute hypoxic respiratory failure, postoperative, expected outcome Leukocytosis secondary to the above Diabetes mellitus type 2, hyperglycemia, hemoglobin A1c 11.5, further diabetic education outpatient in clinic with PCP Hypertension Hyperlipidemia History of seizure disorder Gastroesophageal reflux disease Former nicotine dependence Arthritis Morbid obesity, BMI 35 Plan: Continue on current medication regime ,monitoring and symptomatic treatment. Portable chest x-ray ordered. Lantus increased for tighter blood sugar control.IV fluid hydration. Pain management/NGT maintenance as per general surgery. Aggressive pulmonary toileting with incentive spirometer reinforced. The impression and plan of care has been dictated as directed. : I performed a history and examination of this patient, discussed the same with the dictator. I agree with the dictator's note ,documented as a scribe. Any additional findings or plans will be noted.
[2022-10-28] MEDS: MAGNESIUM SULFATE-D5W PMX 1 GM in DEXTROSE/WATER 1 100ML.BAG IVPB SCH ×2 (10:47→12:54)
[2022-10-28] MEDS: INSULIN DETEMIR (LEVEMIR) 100 UNIT/ML SYR SQ SCH ×2 (11:06→21:17)
[2022-10-28 11:31] LABS: Glucose,Whole Blood 270 mg/dL (70-110)
--- NOTE | 2022-10-28 11:44 | P.PN ---
Subjective HISTORY OF PRESENT ILLNESS: This is a 52-year-old female with a past medical history significant for hyperlipidemia, hypertension, diabetes, and peripheral arterial disease with previous right lower extremity intervention in 2021. Patient follows in the office with Dr. Ramon. We have been asked to see the patient in consultation for cardiac risk assessment. Patient examined at the bedside. Patient presented to the hospital for chief complaint of abdominal pain. Patient was found have a small bowel obstruction and is scheduled for surgical intervention today with general surgery. The patient denies having any chest pain or pressure. She denies shortness of breath. The patient states that [place] and is generally fairly active. She states that she can walk 1 block without having any chest pain or shortness of breath. She states that she saw her boiler house inspector in the office recently and was scheduled for outpatient stress testing and an echocardiogram. * EKG reveals sinus mechanism with no signs of acute ischemia. * Chest xray esophagogastric tube terminates within the gastric body, proximal sidehole at GE junction. * Laboratory data: WBC 7.46. Hemoglobin 11.9. Daily count 204. Sodium 140. Potassium 3.5. BUN 9.1. Creatinine 0.40. * Current home cardiac medications include Brilinta 90mg BID, aspirin 81 mg daily, Lipitor 40 mg at night, lisinopril 10 mg daily, Lasix 20 mg daily * Most recent echocardiogram obtained in February 2021 revealed ejection fraction 55-60%, mild MR, mild TR 10/28/2022 Patient is status post exploratory laparotomy with extensive lysis of adhesions. Postop day #1. Patient examined this morning at the bedside. Patient reports abdominal discomfort. She denies chest pain or pressure. She denies shortness of breath. Echocardiogram completed revealing ejection fraction 60-65% PHYSICAL EXAM: VITAL SIGNS: Reviewed. GENERAL: Well-developed in no acute distress. HEENT: Head is normocephalic. Pupils are equal, round. Sclerae anicteric. Mucous membranes of the mouth are moist. Neck supple. No JVD or thyromegaly LUNGS: Respirations even and unlabored. Lungs essentially clear to auscultation bilaterally. HEART: Regular rate and rhythm. S1 and S2 heard. ABDOMEN: Soft. Nondistended. Nontender. EXTREMITIES: Normal range of motion. No clubbing or cyanosis. Peripheral pulses intact. No lower extremity edema NEUROLOGIC: Awake and alert. Oriented x 3. ASSESSMENT: Abdominal pain Small bowel obstruction Hypertension Hyperlipidemia Diabetes Peripheral arterial disease with previous right lower extremity intervention, 2021 Former nicotine dependence PLAN: Patient is currently stable from a cardiac standpoint No further inpatient recommendations for myocardial to perspective We will sign off. Please reconsult if needed. Nurse practitioner note has been reviewed by physician. Signing provider agrees with the documented findings, assessment, and plan of care. Objective - Vital Signs Vital signs: Vital Signs Temp 98.8 F 10/28/22 07:36 Pulse 99 10/28/22 07:36 Resp 23 10/28/22 07:36 BP 112/67 10/28/22 07:36 Pulse Ox 95 10/28/22 08:44 FiO2 Intake & Output 10/27/22 10/28/22 10/28/22 18:59 06:59 18:59 Intake Total 2049 2470 Output Total 600 1275 Balance 1450 1195 Weight 99.337 kg Intake: IV 2049 400 Intake, IV Titration 2069 Amount Mvi, Adult No.4 with Vit 270 K 10 ml Trace (Conc-1Ml/ Dose) 1 ml In Amino Acid 5%-D20w+Lytes*E* 1,000 ml @ 30 mls/hr IV .Q24H [facility] Rx#:[id number] Sodium Chloride 0.9% 1, 1800 000 ml @ 150 mls/hr IV . Q6H40M [facility] Rx#:[id number] Output: Gastric Drainage 600 425 Urine 700 Estimated Blood Loss 150 Other: Voiding Method Indwelling Catheter Indwelling Catheter # Voids 4 - Labs CBC & Chem 7: 10/27/22 07:59 10/28/22 06:28 Labs: Abnormal Lab Results - Last 24 Hours (Table) 10/27/22 10/27/22 10/27/22 Range/Units 07:59 07:59 12:10 WBC 10.12 H (4.50-10.00) X 10*3/uL MCH 26.8 L (27.0-32.0) pg Sodium (137-145) mmol/L Chloride (98-107) mmol/L Carbon Dioxide 20.6 L (21.6-31.8) mmol/L Anion Gap 13.40 H (4.00-12.00) mmol/L BUN 6.4 L (9.0-27.0) mg/dL Creatinine 0.4 L (0.6-1.5) mg/dL Glucose 190 H (70-110) mg/dL POC Glucose (mg/dL) 152 H (70-110) mg/dL Calcium (8.4-10.2) mg/dL Albumin (3.5-5.0) g/dL 10/27/22 10/27/22 10/27/22 Range/Units 14:52 20:02 20:02 WBC (4.50-10.00) X 10*3/uL MCH (27.0-32.0) pg Sodium (137-145) mmol/L Chloride (98-107) mmol/L Carbon Dioxide (21.6-31.8) mmol/L Anion Gap (4.00-12.00) mmol/L BUN (9.0-27.0) mg/dL Creatinine (0.6-1.5) mg/dL Glucose (70-110) mg/dL POC Glucose (mg/dL) 152 H 214 H (70-110) mg/dL Calcium (8.4-10.2) mg/dL Albumin 2.9 L (3.5-5.0) g/dL 10/28/22 10/28/22 10/28/22 Range/Units 01:14 05:54 06:28 WBC (4.50-10.00) X 10*3/uL MCH (27.0-32.0) pg Sodium 134 L (137-145) mmol/L Chloride 108 H (98-107) mmol/L Carbon Dioxide 20 L (21.6-31.8) mmol/L Anion Gap (4.00-12.00) mmol/L BUN (9.0-27.0) mg/dL Creatinine 0.42 L (0.6-1.5) mg/dL Glucose 258 H (70-110) mg/dL POC Glucose (mg/dL) 218 H 249 H (70-110) mg/dL Calcium 8.0 L (8.4-10.2) mg/dL Albumin (3.5-5.0) g/dL 10/28/22 Range/Units 11:29 WBC (4.50-10.00) X 10*3/uL MCH (27.0-32.0) pg Sodium (137-145) mmol/L Chloride (98-107) mmol/L Carbon Dioxide (21.6-31.8) mmol/L Anion Gap (4.00-12.00) mmol/L BUN (9.0-27.0) mg/dL Creatinine (0.6-1.5) mg/dL Glucose (70-110) mg/dL POC Glucose (mg/dL) 270 H (70-110) mg/dL Calcium (8.4-10.2) mg/dL Albumin (3.5-5.0) g/dL Microbiology - Last 24 Hours (Table) 10/25/22 06:33 Blood Culture - Preliminary Blood
--- NOTE | 2022-10-28 11:46 | P.PN ---
Subjective Progress Note Date: 10/28/22 CHIEF COMPLAINT: Small bowel obstruction HISTORY OF PRESENT ILLNESS: Patient is postop day #1 status post Exploratory laparotomy with extensive lysis of adhesions for small loop bowel obstruction and malignant severe intestinal adhesions. Patient does complain of abdominal pain. She has been a problem. She did report nausea earlier this morning. NG tube with 450 mL output. No bowel activity. Afebrile. Sodium 134 potassium 3.7 creatinine 0.42 PHYSICAL EXAM: VITAL SIGNS: Reviewed GENERAL: Well-developed in no acute distress. HEENT: No sclera icterus. Extraocular movements grossly intact. Moist buccal mucosa. Head is atraumatic, normocephalic. Hears conversational speech. No nasal drain age. NECK: Supple without lymphadenopathy. CHEST: Non-labored respirations and equal bilateral excursions. CARDIOVASCULAR: Palpable 2+ radial pulses. ABDOMEN: Soft. Nondistended. Tender incision site. Prevana wound VAC in place MUSCULOSKELETAL: No clubbing or cyanosis. NEUROLOGIC: No focal or lateralizing signs. Cranial nerves II through XII grossly intact. PSYCH: Appropriate affect. Alert and oriented to person, place and time. SKIN: Well perfused. Good skin turgor. ASSESSMENT: 1. Severe intra-abdominal adhesions with small bowel obstruction 2. Large incarcerated abdominal wall hernia, recurrent with small and large bowel incarceration 3. Morbid obesity due to excess calories 4. Body mass index of 35.3, initial 5. Diabetes type 2, insulin-dependent 6. Chronic pain syndrome 7. Diabetic neuropathy 8. Hypertensive heart disease 9. Peripheral vascular occlusive disease 10. Gastroesophageal reflux disease 11. Coronary artery disease 12. Seizure disorder 13. MRSA 14. Claustrophobia 15. Motion sickness 16. Hyperlipidemia 17. Severe pelvic adhesions 18. Panniculitis PLAN: -Continue NG tube for decompression -Continue TPN for nutrition support -Continue pain management. IV Tylenol added for pain -Continue IV fluids -Encouraged patient to use incentive spirometer -Encouraged patient to increase activity level -DVT prophylaxis subcu heparin and GI prophylaxis Protonix Physician Commercial Collections Driver note has been reviewed by physician. Signing provider agrees with the documented findings, assessment, and plan of care. Objective - Vital Signs Vital signs: Vital Signs Temp 98.8 F 10/28/22 07:36 Pulse 99 10/28/22 07:36 Resp 23 10/28/22 07:36 BP 112/67 10/28/22 07:36 Pulse Ox 95 10/28/22 08:44 FiO2 Intake & Output 10/27/22 10/28/22 10/28/22 18:59 06:59 18:59 Intake Total 2049 2470 Output Total 600 1275 Balance 1450 1195 Weight 99.337 kg Intake: IV 2049 400 Intake, IV Titration 0 Amount Mvi, Adult No.4 with Vit 270 K 10 ml Trace (Conc-1Ml/ Dose) 1 ml In Amino Acid 5%-D20w+Lytes*E* 1,000 ml @ 30 mls/hr IV .Q24H [facility] Rx#:[id number] Sodium Chloride 0.9% 1, 1800 000 ml @ 150 mls/hr IV . Q6H40M [facility] Rx#:[id number] Output: Gastric Drainage 600 425 Urine 700 Estimated Blood Loss 150 Other: Voiding Method Indwelling Catheter Indwelling Catheter # Voids 4 - Labs CBC & Chem 7: 10/27/22 07:59 10/28/22 06:28 Labs: Abnormal Lab Results - Last 24 Hours (Table) 10/27/22 10/27/22 10/27/22 Range/Units 07:59 07:59 12:10 WBC 10.12 H (4.50-10.00) X 10*3/uL MCH 26.8 L (27.0-32.0) pg Sodium (137-145) mmol/L Chloride (98-107) mmol/L Carbon Dioxide 20.6 L (21.6-31.8) mmol/L Anion Gap 13.40 H (4.00-12.00) mmol/L BUN 6.4 L (9.0-27.0) mg/dL Creatinine 0.4 L (0.6-1.5) mg/dL Glucose 190 H (70-110) mg/dL POC Glucose (mg/dL) 152 H (70-110) mg/dL Calcium (8.4-10.2) mg/dL Albumin (3.5-5.0) g/dL 10/27/22 10/27/22 10/27/22 Range/Units 14:52 20:02 20:02 WBC (4.50-10.00) X 10*3/uL MCH (27.0-32.0) pg Sodium (137-145) mmol/L Chloride (98-107) mmol/L Carbon Dioxide (21.6-31.8) mmol/L Anion Gap (4.00-12.00) mmol/L BUN (9.0-27.0) mg/dL Creatinine (0.6-1.5) mg/dL Glucose (70-110) mg/dL POC Glucose (mg/dL) 152 H 214 H (70-110) mg/dL Calcium (8.4-10.2) mg/dL Albumin 2.9 L (3.5-5.0) g/dL 10/28/22 10/28/22 10/28/22 Range/Units 01:14 05:54 06:28 WBC (4.50-10.00) X 10*3/uL MCH (27.0-32.0) pg Sodium 134 L (137-145) mmol/L Chloride 108 H (98-107) mmol/L Carbon Dioxide 20 L (21.6-31.8) mmol/L Anion Gap (4.00-12.00) mmol/L BUN (9.0-27.0) mg/dL Creatinine 0.42 L (0.6-1.5) mg/dL Glucose 258 H (70-110) mg/dL POC Glucose (mg/dL) 218 H 249 H (70-110) mg/dL Calcium 8.0 L (8.4-10.2) mg/dL Albumin (3.5-5.0) g/dL 10/28/22 Range/Units 11:29 WBC (4.50-10.00) X 10*3/uL MCH (27.0-32.0) pg Sodium (137-145) mmol/L Chloride (98-107) mmol/L Carbon Dioxide (21.6-31.8) mmol/L Anion Gap (4.00-12.00) mmol/L BUN (9.0-27.0) mg/dL Creatinine (0.6-1.5) mg/dL Glucose (70-110) mg/dL POC Glucose (mg/dL) 270 H (70-110) mg/dL Calcium (8.4-10.2) mg/dL Albumin (3.5-5.0) g/dL Microbiology - Last 24 Hours (Table) 10/25/22 06:33 Blood Culture - Preliminary Blood
[2022-10-28] MEDS: ACETAMINOPHEN IV (For NPO) 1,000 MG in EMPTY BAG 1 BAG IVPB SCH ×2 (12:31→17:41)
[2022-10-28 14:13] LABS: Basophils # (A) 0.05 X 10*3/uL (0.00-0.10); Basophils % (A) 0.7 %; Eosinophils # (A) 0.07 X 10*3/uL (0.04-0.35); Eosinophils % (A) 0.9 %; HCT 38.2 % (37.2-46.3); HGB 11.9 d/dL (12.0-15.0); Lymphocytes # (A) 0.88 X 10*3/uL (0.90-5.00); Lymphocytes % (A) 11.6 %; MCH 26.5 pg (27.0-32.0); MCHC 31.2 d/dL (32.0-37.0); MCV 85.1 FL (80.0-97.0); Mean Platelet Volume 11.9 FL (9.5-12.2); Monocytes # (A) 0.68 X 10*3/uL (0.20-1.00); NRBC Per 100 WBC 0 X 10*3/uL (0.00-0.01); Neutrophils # (A) 5.86 X 10*3/uL (1.80-7.70); Neutrophils % (A) 77.4 %; Platelet Count 199 X 10*3/uL (140-440); RBC 4.49 X 10*6/uL (4.10-5.20); RDW 14.3 % (11.5-14.5); WBC 7.57 X 10*3/uL (4.50-10.00)
--- NOTE | 2022-10-28 15:51 | XR ---
EXAMINATION TYPE: XR chest 1V portable DATE OF EXAM: 10/28/2022 Comparison: 10/26/2022 Clinical History: 52-year-old female Hypoxia Findings: Left PICC tip within the right atrium. Low lung volumes with partial obscuration of the heart margins . Heart likely upper limits of normal. Patchy bilateral medial bibasilar opacities. No pleural effusi on. Impression: Hypoventilatory changes. Patchy medial bibasilar opacities could represent atelectasis or developing infiltrates.
[2022-10-28] MEDS ORDERED: 1: MVI, ADULT NO.4 WITH VIT K 10 ML, TRACE (CONC-1ML/DOSE) 1 ML in AMINO ACID 5%-D20W+LY IV SCH ×3 (16:00)
[2022-10-28 17:47] LABS: Glucose,Whole Blood 268 mg/dL (70-110)
[2022-10-28] MEDS ORDERED: FAT EMULSION 20% 250 ML IV SCH (21:00)
[2022-10-28] MEDS: ATORVASTATIN 40 MG TAB PO SCH (21:17)
[2022-10-28 23:46] LABS: Glucose,Whole Blood 299 mg/dL (70-110)
[2022-10-29] MEDS: ACETAMINOPHEN IV (For NPO) 1,000 MG in EMPTY BAG 1 BAG IVPB SCH ×2 (00:22→06:33)
[2022-10-29] MEDS: SODIUM CHLORIDE 0.9% 1,000 ML IV SCH ×3 (00:22→16:56)
[2022-10-29] MEDS: KETOROLAC 15 MG/ML 1 ML VIAL IVP SCH ×4 (00:23→17:34)
[2022-10-29] MEDS: INSULIN ASPART (NovoLOG) 100 UNIT/ML VIAL SQ SCH ×4 (00:24→17:34)
[2022-10-29] MEDS: 1: MVI, ADULT NO.4 WITH VIT K 10 ML, TRACE (CONC-1ML/DOSE) 1 ML, SODIUM ACETATE 20 MEQ i IV SCH ×8 (02:09→13:58)
[2022-10-29 06:01] LABS: Glucose,Whole Blood 265 mg/dL (70-110)
[2022-10-29 06:33] LABS: African American GFR (CKD) >90 (>60 ml/min/1.73 sqM); Anion Gap 5 mmol/L; Blood Urea Nitrogen 15 mg/dL (7-17); Calcium 7.8 mg/dL (8.4-10.2); Carbon Dioxide 20 mmol/L (22-30); Chloride 110 mmol/L (98-107); Glucose 281 mg/dL (74-99); Magnesium 2.3 mg/dL (1.6-2.3); Non-African American GFR(CKD) >90 (>60 ml/min/1.73 sqM); Phosphorus 2.5 mg/dL (2.5-4.5); Sodium 135 mmol/L (137-145)
[2022-10-29] MEDS: INSULIN DETEMIR (LEVEMIR) 100 UNIT/ML SYR SQ SCH ×2 (06:34→21:01)
[2022-10-29 06:53] LABS: Potassium 3.6 mmol/L (3.5-5.1)
[2022-10-29] MEDS: HYDROmorphone PCA 10 MG/50 ML BAG IV SCH ×2 (06:55→13:59)
[2022-10-29] MEDS: LACTULOSE 20 GM/30 ML CUP PO SCH (09:17)
[2022-10-29] MEDS: PREGABALIN 75 MG CAP PO SCH ×2 (09:17→22:33)
[2022-10-29] MEDS: ASPIRIN 81 MG PO SCH (09:17)
[2022-10-29] MEDS: lisinopriL 10 MG TAB PO SCH (09:17)
[2022-10-29] MEDS: HEPARIN SODIUM,PORCINE/PF 5,000 UNIT/0.5 ML SYRINGE SQ SCH ×2 (09:18→21:01)
[2022-10-29] MEDS: PANTOPRAZOLE 40 MG/10 ML VIAL IV SCH (09:18)
[2022-10-29] MEDS ORDERED: POTASSIUM CHLORIDE 20 MEQ in WATER FOR INJECTION 1 100ML.BAG IVPB ONE (11:00)
[2022-10-29 11:26] LABS: Glucose,Whole Blood 369 mg/dL (70-110)
[2022-10-29] MEDS: SUCRALFATE 1 GM TAB PO SCH ×2 (11:51→22:33)
--- NOTE | 2022-10-29 14:40 | P.PN ---
Subjective Progress Note Date: 10/29/22 CHIEF COMPLAINT: Small bowel obstruction HISTORY OF PRESENT ILLNESS: Patient is postop day #2 status post Exploratory laparotomy with extensive lysis of adhesions for small loop bowel obstruction and malignant severe intestinal adhesions. Patient does complain of abdominal pain. Patient does report the pain is lessened yesterday. She denies any flatus. She did have nausea yesterday but this has now improved. NG tube output 300 mL. Patient is on TPN for nutritional support. Afebrile. PHYSICAL EXAM: VITAL SIGNS: Reviewed GENERAL: Well-developed in no acute distress. HEENT: No sclera icterus. Extraocular movements grossly intact. Moist buccal mucosa. Head is atraumatic, normocephalic. Hears conversational speech. No nasal drainage. NECK: Supple without lymphadenopathy. CHEST: Non-labored respirations and equal bilateral excursions. CARDIOVASCULAR: Palpable 2+ radial pulses. ABDOMEN: Soft. Nondistended. Tender incision site. Prevana wound VAC in place MUSCULOSKELETAL: No clubbing or cyanosis. NEUROLOGIC: No focal or lateralizing signs. Cranial nerves II through XII gr ossly intact. PSYCH: Appropriate affect. Alert and oriented to person, place and time. SKIN: Well perfused. Good skin turgor. ASSESSMENT: 1. Severe intra-abdominal adhesions with small bowel obstruction 2. Large incarcerated abdominal wall hernia, recurrent with small and large bowel incarceration 3. Morbid obesity due to excess calories 4. Body mass index of 35.3, initial 5. Diabetes type 2, insulin-dependent 6. Chronic pain syndrome 7. Diabetic neuropathy 8. Hypertensive heart disease 9. Peripheral vascular occlusive disease 10. Gastroesophageal reflux disease 11. Coronary artery disease 12. Seizure disorder 13. MRSA 14. Claustrophobia 15. Motion sickness 16. Hyperlipidemia 17. Severe pelvic adhesions 18. Panniculitis PLAN: -Continue NG tube for decompression -Continue TPN for nutrition support -Continue pain management -Continue IV fluids -Encouraged patient to use incentive spirometer -Encouraged patient to increase activity level -DVT prophylaxis subcu heparin and GI prophylaxis Protonix Physician Mechanical Engineering Intern note has been reviewed by physician. Signing provider agrees with the documented findings, assessment, and plan of care. Objective - Vital Signs Vital signs: Vital Signs Temp 98.0 F 10/29/22 07:57 Pulse 89 10/29/22 07:57 Resp 21 10/29/22 07:57 BP 131/70 10/29/22 07:57 Pulse Ox 93 L 10/29/22 07:57 FiO2 Intake & Output 10/28/22 10/29/22 10/29/22 18:59 06:59 18:59 Intake Total 1800 2640 Output Total 340 600 Balance 1460 2040 Weight 99.337 kg Intake: IV 1800 Sodium Chloride 0.9% 1, 1800 000 ml @ 150 mls/hr IV . Q6H40M [facility] Rx#:[id number] Intake, IV Titration 2640 Amount ACETAMINOPHEN IV (For NPO 200 ) 1,000 mg In Empty Bag 1 bag @ 400 mls/hr IVPB Q6HR [facility] Rx#:[id number] Fat Emulsion 20% 250 ml @ 200 20.833 mls/hr IV TuFr [facility] Rx#:[id number] Mvi, Adult No.4 with Vit 440 K 10 ml Trace (Conc-1Ml/ Dose) 1 ml In Amino Acid 5%-D20w+Lytes*E* 1,000 ml @ 30 mls/hr IV .Q24H [facility] Rx#:[id number] Sodium Chloride 0.9% 1, 1800 000 ml @ 150 mls/hr IV . Q6H40M [facility] Rx#:[id number] Output: Gastric Drainage 300 Urine 340 300 Uretheral ([place]) 340 Other: Voiding Method Indwelling Catheter Indwelling Catheter Indwelling Catheter - Labs CBC & Chem 7: 10/28/22 06:28 10/29/22 05:48 Labs: Abnormal Lab Results - Last 24 Hours (Table) 10/28/22 10/28/22 10/28/22 Range/Units 06:28 06:28 17:45 Hgb 11.9 L (12.0-15.0) d/dL MCH 26.5 L (27.0-32.0) pg MCHC 31.2 L (32.0-37.0) d/dL Lymphocytes # 0.88 L (0.90-5.00) X 10*3/uL Sodium (137-145) mmol/L Chloride (98-107) mmol/L Carbon Dioxide (22-30) mmol/L Creatinine (0.52-1.04) mg/dL Glucose (74-99) mg/dL POC Glucose (mg/dL) 268 H (70-110) mg/dL Calcium (8.4-10.2) mg/dL Triglycerides 180.00 H (0.00-149.00) mg/dL 10/28/22 10/29/22 10/29/22 Range/Units 23:44 05:48 05:56 Hgb (12.0-15.0) d/dL MCH (27.0-32.0) pg MCHC (32.0-37.0) d/dL Lymphocytes # (0.90-5.00) X 10*3/uL Sodium 135 L (137-145) mmol/L Chloride 110 H (98-107) mmol/L Carbon Dioxide 20 L (22-30) mmol/L Creatinine 0.39 L (0.52-1.04) mg/dL Glucose 281 H (74-99) mg/dL POC Glucose (mg/dL) 299 H 265 H (70-110) mg/dL Calcium 7.8 L (8.4-10.2) mg/dL Triglycerides (0.00-149.00) mg/dL 10/29/22 Range/Units 11:24 Hgb (12.0-15.0) d/dL MCH (27.0-32.0) pg MCHC (32.0-37.0) d/dL Lymphocytes # (0.90-5.00) X 10*3/uL Sodium (137-145) mmol/L Chloride (98-107) mmol/L Carbon Dioxide (22-30) mmol/L Creatinine (0.52-1.04) mg/dL Glucose (74-99) mg/dL POC Glucose (mg/dL) 369 H (70-110) mg/dL Calcium (8.4-10.2) mg/dL Triglycerides (0.00-149.00) mg/dL Microbiology - Last 24 Hours (Table) 10/25/22 06:33 Blood Culture - Preliminary Blood
[2022-10-29 17:32] LABS: Glucose,Whole Blood 288 mg/dL (70-110)
--- NOTE | 2022-10-29 18:52 | P.PN ---
Subjective Progress Note Date: 10/29/2210/27 This is a 52-year-old female admitted with abdominal pain, large abdominal wall hernia, scheduled for surgery today. Maintained on IV fluid hydration. NGT to LIS. Reports "cramping" abdominal pain improving from admission. Last bowel movement, diarrhea 1-1/2 days prior. Positive nausea. Denies chest pain, palpitations or shortness of breath. 10/28/2022 status post exploratory laparotomy with extensive lysis of adhesions for small bowel obstruction and malignant severe intestinal adhesions over 3 hours, with wound vac, postop day #1. Positive pain, wearing binder. Denies nausea. NG tube with 1025ml drainage in 24 hours. Afebrile. Renal function stable. Sodium 134. Blood sugars elevated in the 200s. Maintaining O2 sats in the mid 90s on 3 L nasal cannula. 10/29/2022 NG tube with decreased drainage,300ml/24h, complaining of heartburn/reflux. Nausea subsided. Reports decreasing pain. Maintained on TPN/IV fluid hydration. Hyperglycemic, blood sugars in the 260s. Reports belc kailee, small amounts of flatus, no bowel movement. Maintaining O2 sats in the 90s on 3 L nasal cannula. Afebrile. Objective - Vital Signs Vital signs: Vital Signs Temp 98.0 F 10/29/22 14:33 Pulse 93 10/29/22 14:33 Resp 22 10/29/22 14:33 BP 124/74 10/29/22 14:33 Pulse Ox 94 L 10/29/22 14:33 FiO2 Intake & Output 10/28/22 10/29/22 10/29/22 18:59 06:59 18:59 Intake Total 1800 2640 Output Total 253 455 4680 Balance 1460 2040 -1800 Weight 99.337 kg Intake: IV 1800 Sodium Chloride 0.9% 1, 1800 000 ml @ 150 mls/hr IV . Q6H40M [facility] Rx#:[id number] Intake, IV Titration 2640 Amount ACETAMINOPHEN IV (For NPO 200 ) 1,000 mg In Empty Bag 1 bag @ 400 mls/hr IVPB Q6HR [facility] Rx#:[id number] Fat Emulsion 20% 250 ml @ 200 20.833 mls/hr IV TuFr [facility] Rx#:[id number] Mvi, Adult No.4 with Vit 440 K 10 ml Trace (Conc-1Ml/ Dose) 1 ml In Amino Acid 5%-D20w+Lytes*E* 1,000 ml @ 30 mls/hr IV .Q24H [facility] Rx#:[id number] Sodium Chloride 0.9% 1, 1800 000 ml @ 150 mls/hr IV . Q6H40M [facility] Rx#:[id number] Output: Gastric Drainage 300 600 Urine [id number] Uretheral ([place]) 340 Other: Voiding Method Indwelling Catheter Indwelling Catheter Indwelling Catheter - Exam PHYSICAL EXAM: VITAL SIGNS: As above GENERAL: Alert and oriented 3, Sitting up in bed, no acute distress HEENT: Normocephalic, Conjunctivae normal. eyes normal.NGT with decreased Bilious drainage. NECK: Supple, No JVD. CARDIOVASCULAR: S1, S2 regular. No murmur RESPIRATION: Unlabored, Breath sounds diminished in the bases. No rhonchi or crackles. ABDOMEN: Soft, status post surgery, wearing an abdominal binder.Prevana wound vac. LEGS: No edema. no swelling NERVOUS SYSTEM: Cranial N 2-12 grossly normal. No focal deficits. Strength and sensation grossly intact. Skin: Warm and dry, no rash - Labs CBC & Chem 7: 10/28/22 06:28 10/29/22 05:48 Labs: Abnormal Lab Results - Last 24 Hours (Table) 10/28/22 10/29/22 10/29/22 Range/Units 23:44 05:48 05:56 Sodium 135 L (137-145) mmol/L Chloride 110 H (98-107) mmol/L Carbon Dioxide 20 L (22-30) mmol/L Creatinine 0.39 L (0.52-1.04) mg/dL Glucose 281 H (74-99) mg/dL POC Glucose (mg/dL) 299 H 265 H (70-110) mg/dL Calcium 7.8 L (8.4-10.2) mg/dL 10/29/22 10/29/22 Range/Units 11:24 17:30 Sodium (137-145) mmol/L Chloride (98-107) mmol/L Carbon Dioxide (22-30) mmol/L Creatinine (0.52-1.04) mg/dL Glucose (74-99) mg/dL POC Glucose (mg/dL) 369 H 288 H (70-110) mg/dL Calcium (8.4-10.2) mg/dL Assessment and Plan Assessment: Acute abdominal pain, partial small bowel obstruction and ventral hernia with multiple abdominal adhesions, in a patient with history of bowel obstruction, status post exploratory laparotomy with extensive lysis of adhesions for small bowel obstruction and malignant severe intestinal adhesions over 3 hours, with wound vac. Large incarcerated abdominal wall hernia, recurrent with small enlarged bowel incarceration Acute hypoxic respiratory failure, atelectasis ,postoperative, expected outcome, secondary to the above Leukocytosis secondary to the above Diabetes mellitus type 2, hyperglycemia, hemoglobin A1c 11.5, further diabetic education outpatient in clinic with PCP Hypertension Hyperlipidemia History of seizure disorder Gastroesophageal reflux disease Former nicotine dependence Arthritis Morbid obesity, BMI 35 Plan: Continue on current medication regime ,monitoring and symptomatic treatmen t. Receiving TPN -Lantus increased for tighter blood sugar control.IV fluid hydration. Carafate for reflux/heartburn. Pain management/NGT maintenance as per general surgery. Aggressive pulmonary toileting with incentive spirometer reinforced. The impression and plan of care has been dictated as directed. : I performed a history and examination of this patient, discussed the same with the dictator. I agree with the dictator's note ,documented as a scribe. Any additional findings or plans will be noted.
[2022-10-29] MEDS: ATORVASTATIN 40 MG TAB PO SCH (22:33)
[2022-10-30] MEDS: SODIUM CHLORIDE 0.9% 1,000 ML IV SCH ×4 (00:21→21:07)
[2022-10-30 01:10] LABS: Glucose,Whole Blood 258 mg/dL (70-110)
[2022-10-30] MEDS: INSULIN ASPART (NovoLOG) 100 UNIT/ML VIAL SQ SCH ×4 (01:11→17:51)
[2022-10-30] MEDS: 1: MVI, ADULT NO.4 WITH VIT K 10 ML, TRACE (CONC-1ML/DOSE) 1 ML, SODIUM ACETATE 20 MEQ i IV SCH ×4 (03:50)
[2022-10-30 06:16] LABS: Glucose,Whole Blood 241 mg/dL (70-110)
[2022-10-30] MEDS ORDERED: INSULIN DETEMIR (LEVEMIR) 100 UNIT/ML SYR SQ SCH (07:00)
[2022-10-30 07:35] LABS: ALT 22 U/L (4-34); African American GFR (CKD) >90 (>60 ml/min/1.73 sqM); Albumin/Globulin Ratio 1.1; Anion Gap 9 mmol/L; Blood Urea Nitrogen 9 mg/dL (7-17); Calcium 8.3 mg/dL (8.4-10.2); Carbon Dioxide 19 mmol/L (22-30); Chloride 111 mmol/L (98-107); Globulin 2.8 g/dL; Glucose 238 mg/dL (74-99); Non-African American GFR(CKD) >90 (>60 ml/min/1.73 sqM); Phosphorus 2.3 mg/dL (2.5-4.5); Sodium 139 mmol/L (137-145); Total Bilirubin 0.7 mg/dL (0.2-1.3); Total Protein 5.8 g/dL (6.3-8.2)
[2022-10-30 07:45] LABS: AST 38 U/L (14-36); Alkaline Phosphatase 111 U/L (38-126); Potassium 4.3 mmol/L (3.5-5.1)
[2022-10-30] MEDS: LACTULOSE 20 GM/30 ML CUP PO SCH (08:34)
[2022-10-30] MEDS: PANTOPRAZOLE 40 MG/10 ML VIAL IV SCH (08:34)
[2022-10-30] MEDS: SUCRALFATE 1 GM TAB PO SCH ×2 (08:35→21:06)
[2022-10-30] MEDS: ASPIRIN 81 MG PO SCH (08:35)
[2022-10-30] MEDS: HEPARIN SODIUM,PORCINE/PF 5,000 UNIT/0.5 ML SYRINGE SQ SCH (08:35)
[2022-10-30] MEDS: PREGABALIN 75 MG CAP PO SCH ×2 (08:35→21:06)
[2022-10-30] MEDS: lisinopriL 10 MG TAB PO SCH (08:35)
[2022-10-30] MEDS ORDERED: SODIUM PHOSPHATE 15 MMOL in DEXTROSE 5% IN WATER 250 ML IVPB ONE ×2 (10:00)
[2022-10-30 11:28] LABS: Glucose,Whole Blood 282 mg/dL (70-110)
[2022-10-30] MEDS: HYDROmorphone PCA 10 MG/50 ML BAG IV SCH ×2 (13:02→19:51)
--- NOTE | 2022-10-30 14:03 | P.PN ---
Subjective Progress Note Date: 10/30/22 CHIEF COMPLAINT: Small bowel obstruction HISTORY OF PRESENT ILLNESS: Patient is postop day #3 status post Exploratory laparotomy with extensive lysis of adhesions for small loop bowel obstruction and malignant severe intestinal adhesions. Patient does complain of abdominal pain. Her pain continues to improve each day. Her NG tube currently clamped. Patient currently not having any flatus. Denies any nausea. She did have some sips of clear liquids. Afebrile. Sodium 139 potassium is 4.3 creatinine 0.28 magnesium 2.0 PHYSICAL EXAM: VITAL SIGNS: Reviewed GENERAL: Well-developed in no acute distress. HEENT: No sclera icterus. Extraocular movements grossly intact. Moist buccal mucosa. Head is atraumatic, normocephalic. Hears conversational speech. No nasal drainage. NECK: Supple without lymphadenopathy. CHEST: Non-labored respirations and equal bilateral excursions. CARDIOVASCULAR: Palpable 2+ radial pulses. ABDOMEN: Soft. Nondistended. Tender incision site. Prevana wound VAC in place MUSCULOSKELETAL: No clubbing or cyanosis. NEUROLOGIC: No focal or lateralizing signs. Cranial nerves II through XII grossly intact. PSYCH: Appropriate affect. Alert and oriented to person, place and time. SKIN: Well perfused. Good skin turgor. ASSESSMENT: 1. Severe intra-abdominal adhesions with small bowel obstruction 2. Large incarcerated abdominal wall hernia, recurrent with small and large bowel incarceration 3. Morbid obesity due to excess calories 4. Body mass index of 35.3, initial 5. Diabetes type 2, insulin-dependent 6. Chronic pain syndrome 7. Diabetic neuropathy 8. Hypertensive heart disease 9. Peripheral vascular occlusive disease 10. Gastroesophageal reflux disease 11. Coronary artery disease 12. Seizure disorder 13. MRSA 14. Claustrophobia 15. Motion sickness 16. Hyperlipidemia 17. Severe pelvic adhesions 18. Panniculitis PLAN: -Continue NG tube clamped so patient can trial clear liquids and ambulate easier. If patient becomes nauseated NG tube will be placed to suction -Continue TPN for nutrition support -Continue pain management -Continue IV fluids -Encouraged patient to use incentive spirometer -Encouraged patient to increase activity level -DVT prophylaxis subcu heparin and GI prophylaxis Protonix Physician Flask Pusher note has been reviewed by physician. Signing provider agrees with the documented findings, assessment, and plan of care. Objective - Vital Signs Vital signs: Vital Signs Temp 97.9 F 10/30/22 06:59 Pulse 89 08/03/23 06:59 Resp 16 10/30/22 06:59 BP 135/79 10/30/22 06:59 Pulse Ox 91 L 10/30/22 09:39 FiO2 Intake & Output 10/29/22 10/30/22 10/30/22 18:59 06:59 18:59 Intake Total 1021 Output Total 1800 300 Balance -779 -300 Weight 99.337 kg Intake: Intake, IV Titration 1021 Amount Mvi, Adult No.4 with Vit 1021 K 10 ml Trace (Conc-1Ml/ Dose) 1 ml Sodium Acetate 20 meq In Amino Acid 5%- D20w+Lytes*E* 1,000 ml @ 70 mls/hr IV .BY DURATION [facility] Rx#:[id number] Output: Gastric Drainage 600 Urine 1200 300 Other: Voiding Method Indwelling Catheter Indwelling Catheter Toilet # Voids 2 # Bowel Movements 0 - Labs CBC & Chem 7: 10/28/22 06:28 10/30/22 06:49 Labs: Abnormal Lab Results - Last 24 Hours (Table) 10/29/22 10/30/22 10/30/22 Range/Units 17:30 01:08 06:15 Chloride (98-107) mmol/L Carbon Dioxide (22-30) mmol/L Creatinine (0.52-1.04) mg/dL Glucose (74-99) mg/dL POC Glucose (mg/dL) 288 H 258 H 241 H (70-110) mg/dL Calcium (8.4-10.2) mg/dL Phosphorus (2.5-4.5) mg/dL AST (14-36) U/L Total Protein (6.3-8.2) g/dL Albumin (3.5-5.0) g/dL 10/30/22 10/30/22 Range/Units 06:49 11:27 Chloride 111 H (98-107) mmol/L Carbon Dioxide 19 L (22-30) mmol/L Creatinine 0.28 L (0.52-1.04) mg/dL Glucose 238 H (74-99) mg/dL POC Glucose (mg/dL) 282 H (70-110) mg/dL Calcium 8.3 L (8.4-10.2) mg/dL Phosphorus 2.3 L (2.5-4.5) mg/dL AST 38 H (14-36) U/L Total Protein 5.8 L (6.3-8.2) g/dL Albumin 3.0 L (3.5-5.0) g/dL Microbiology - Last 24 Hours (Table) 10/25/22 06:33 Blood Culture - Final Blood
[2022-10-30] MEDS ORDERED: INSULIN DETEMIR (LEVEMIR) 100 UNIT/ML SYR SQ ONE (15:45)
--- NOTE | 2022-10-30 15:55 | P.PN ---
Subjective Progress Note Date: 10/30/2210/27 This is a 52-year-old female admitted with abdominal pain, large abdominal wall hernia, scheduled for surgery today. Maintained on IV fluid hydration. NGT to LIS. Reports "cramping" abdominal pain improving from admission. Last bowel movement, diarrhea 1-1/2 days prior. Positive nausea. Denies chest pain, palpitations or shortness of breath. 10/28/2022 status post exploratory laparotomy with extensive lysis of adhesions for small bowel obstruction and malignant severe intestinal adhesions over 3 hours, with wound vac, postop day #1. Positive pain, wearing binder. Denies nausea. NG tube with 1025ml drainage in 24 hours. Afebrile. Renal function stable. Sodium 134. Blood sugars elevated in the 200s. Maintaining O2 sats in the mid 90s on 3 L nasal cannula. 10/29/2022 NG tube with decreased drainage,300ml/24h, complaining of heartburn/reflux. Nausea subsided. Reports decreasing pain. Maintained on TPN/IV fluid hydration. Hyperglycemic, blood sugars in the 260s. Reports belc kailee, small amounts of flatus, no bowel movement. Maintaining O2 sats in the 90s on 3 L nasal cannula. Afebrile. 10/30/22 sitting up at side of bed, feeling better today. 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 Reports she ambulated in the hallway yesterday, tolerating exertion well. NG tube clamped since yesterday. Denies nausea or vomiting Receiving TPN, Lantus increased yesterday with blood sugars in the lower 200s. Reports burping. Denies bowel movement, flatus. Objective - Vital Signs Vital signs: Vital Signs Temp 97.9 F 10/30/22 06:59 Pulse 89 10/30/22 06:59 Resp 16 10/30/22 06:59 BP 135/79 10/30/22 06:59 Pulse Ox 91 L 10/30/22 09:39 FiO2 Intake & Output 10/29/22 10/30/22 10/30/22 18:59 06:59 18:59 Intake Total 1021 Output Total 1800 300 Balance -779 -300 Weight 99.337 kg Intake: Intake, IV Titration 1021 Amount Mvi, Adult No.4 with Vit 1021 K 10 ml Trace (Conc-1Ml/ Dose) 1 ml Sodium Acetate 20 meq In Amino Acid 5%- D20w+Lytes*E* 1,000 ml @ 70 mls/hr IV .BY DURATION [facility] Rx#:[id number] Output: Gastric Drainage 600 Urine 1200 300 Other: Voiding Method Indwelling Catheter Indwelling Catheter Toilet # Voids 2 # Bowel Movements 0 - Exam PHYSICAL EXAM: VITAL SIGNS: As above GENERAL: Alert and oriented 3, Sitting up at side of bed, no acute distress HEENT: Normocephalic, Conjunctivae normal. eyes normal.NGT clamped. NECK: Supple, No JVD. CARDIOVASCULAR: S1, S2 regular. No murmur RESPIRATION: Unlabored, Breath sounds diminished in the bases. No rhonchi or crackles. ABDOMEN: Soft, status post surgery, wearing an abdominal binder.Prevana wound vac. LEGS: No edema. no swelling NERVOUS SYSTEM: Cranial N 2-12 grossly normal. No focal deficits. Strength and sensation grossly intact. Skin: Warm and dry, no rash - Labs CBC & Chem 7: 10/28/22 06:28 10/30/22 06:49 Labs: Abnormal Lab Results - Last 24 Hours (Table) 10/29/22 10/30/22 10/30/22 Range/Units 17:30 01:08 06:15 Chloride (98-107) mmol/L Carbon Dioxide (22-30) mmol/L Creatinine (0.52-1.04) mg/dL Glucose (74-99) mg/dL POC Glucose (mg/dL) 288 H 258 H 241 H (70-110) mg/dL Calcium (8.4-10.2) mg/dL Phosphorus (2.5-4.5) mg/dL AST (14-36) U/L Total Protein (6.3-8.2) g/dL Albumin (3.5-5.0) g/dL 10/30/22 10/30/22 Range/Units 06:49 11:27 Chloride 111 H (98-107) mmol/L Carbon Dioxide 19 L (22-30) mmol/L Creatinine 0.28 L (0.52-1.04) mg/dL Glucose 238 H (74-99) mg/dL POC Glucose (mg/dL) 282 H (70-110) mg/dL Calcium 8.3 L (8.4-10.2) mg/dL Phosphorus 2.3 L (2.5-4.5) mg/dL AST 38 H (14-36) U/L Total Protein 5.8 L (6.3-8.2) g/dL Albumin 3.0 L (3.5-5.0) g/dL Microbiology - Last 24 Hours (Table) 10/25/22 06:33 Blood Culture - Final Blood Assessment and Plan Assessment: Acute abdominal pain, partial small bowel obstruction and ventral hernia with mu ltiple abdominal adhesions, in a patient with history of bowel obstruction, status post exploratory laparotomy with extensive lysis of adhesions for small bowel obstruction and malignant severe intestinal adhesions over 3 hours, with wound vac. Large incarcerated abdominal wall hernia, recurrent with small enlarged bowel incarceration Acute hypoxic respiratory failure, atelectasis ,postoperative, expected outcome, secondary to the above Leukocytosis secondary to the above Diabetes mellitus type 2, hyperglycemia, hemoglobin A1c 11.5, further diabetic education outpatient in clinic with PCP Hypertension Hyperlipidemia History of seizure disorder Gastroesophageal reflux disease Former nicotine dependence Arthritis Morbid obesity, BMI 35 Plan: Continue on current medication regime ,monitoring and symptomatic treatment. Receiving TPN -Lantus adjusted for tighter blood sugar control.IV f luid hydration. Pain management/NGT maintenance as per general surgery. Aggressive pulmonary toileting with incentive spirometer reinforced. The impression and plan of care has been dictated as directed. : I performed a history and examination of this patient, discussed the same with the dictator. I agree with the dictator's note ,documented as a scribe. Any additional findings or plans will be noted.
[2022-10-30 16:54] LABS: Glucose,Whole Blood 296 mg/dL (70-110)
[2022-10-30] MEDS ORDERED: [UNRECOGNIZED DRUG - REMARK] IV SCH ×4 (19:00)
[2022-10-30] MEDS: HEPARIN SODIUM,PORCINE 5,000 UNIT/ML 1 ML VIAL SQ SCH (21:05)
[2022-10-30] MEDS: ATORVASTATIN 40 MG TAB PO SCH (21:05)
[2022-10-30] MEDS: INSULIN DETEMIR (LEVEMIR) 100 UNIT/ML SYR SQ SCH (21:05)
[2022-10-31 00:17] LABS: Glucose,Whole Blood 275 mg/dL (70-110)
[2022-10-31] MEDS: INSULIN ASPART (NovoLOG) 100 UNIT/ML VIAL SQ SCH ×3 (00:46→13:35)
[2022-10-31] MEDS: SODIUM CHLORIDE 0.9% 1,000 ML IV SCH ×3 (00:48→16:41)
[2022-10-31] MEDS ORDERED: ACETAMINOPHEN IV (For NPO) 1,000 MG in EMPTY BAG 1 BAG IVPB PRN (04:01)
[2022-10-31 06:09] LABS: Glucose,Whole Blood 261 mg/dL (70-110)
[2022-10-31] MEDS: HYDROmorphone PCA 10 MG/50 ML BAG IV SCH (06:21)
[2022-10-31] MEDS ORDERED: INSULIN DETEMIR (LEVEMIR) 100 UNIT/ML SYR SQ SCH (07:00)
[2022-10-31 07:18] LABS: ALT 20 U/L (4-34); AST 19 U/L (14-36); African American GFR (CKD) >90 (>60 ml/min/1.73 sqM); Albumin 2.6 g/dL (3.5-5.0); Alkaline Phosphatase 105 U/L (38-126); Anion Gap 6 mmol/L; Blood Urea Nitrogen 6 mg/dL (7-17); Calcium 7.9 mg/dL (8.4-10.2); Carbon Dioxide 26 mmol/L (22-30); Chloride 107 mmol/L (98-107); Globulin 2.5 g/dL; Glucose 274 mg/dL (74-99); Magnesium 1.8 mg/dL (1.6-2.3); Non-African American GFR(CKD) >90 (>60 ml/min/1.73 sqM); Phosphorus 2.4 mg/dL (2.5-4.5); Potassium 3.2 mmol/L (3.5-5.1); Sodium 139 mmol/L (137-145); Total Bilirubin 0.4 mg/dL (0.2-1.3); Total Protein 5.1 g/dL (6.3-8.2)
[2022-10-31] MEDS: POTASSIUM PHOSPHATE 10 MMOL in SODIUM CHLORIDE 0.9% 250 ML IV SCH ×3 (08:39→14:23)
[2022-10-31] MEDS: PANTOPRAZOLE 40 MG/10 ML VIAL IV SCH (08:43)
[2022-10-31] MEDS: SUCRALFATE 1 GM TAB PO SCH (08:43)
[2022-10-31] MEDS: ASPIRIN 81 MG PO SCH (08:43)
[2022-10-31] MEDS: LACTULOSE 20 GM/30 ML CUP PO SCH (08:43)
[2022-10-31] MEDS: PREGABALIN 75 MG CAP PO SCH (08:43)
[2022-10-31] MEDS: lisinopriL 10 MG TAB PO SCH (08:43)
[2022-10-31] MEDS: HEPARIN SODIUM,PORCINE 5,000 UNIT/ML 1 ML VIAL SQ SCH (08:43)
[2022-10-31] MEDS: 1: MVI, ADULT NO.4 WITH VIT K 10 ML, TRACE (CONC-1ML/DOSE) 1 ML, SODIUM ACETATE 30 MEQ, IV SCH ×10 (09:35→12:35)
--- NOTE | 2022-10-31 11:12 | P.PN ---
Subjective Progress Note Date: 10/31/2210/27 This is a 52-year-old female admitted with abdominal pain, large abdominal wall hernia, scheduled for surgery today. Maintained on IV fluid hydration. NGT to LIS. Reports "cramping" abdominal pain improving from admission. Last bowel movement, diarrhea 1-1/2 days prior. Positive nausea. Denies chest pain, palpitations or shortness of breath. 10/28/2022 status post exploratory laparotomy with extensive lysis of adhesions for small bowel obstruction and malignant severe intestinal adhesions over 3 hours, with wound vac, postop day #1. Positive pain, wearing binder. Denies nausea. NG tube with 1025ml drainage in 24 hours. Afebrile. Renal function stable. Sodium 134. Blood sugars elevated in the 200s. Maintaining O2 sats in the mid 90s on 3 L nasal cannula. 10/29/2022 NG tube with decreased drainage,300ml/24h, complaining of heartburn/reflux. Nausea subsided. Reports decreasing pain. Maintained on TPN/IV fluid hydration. Hyperglycemic, blood sugars in the 260s. Reports belc kailee, small amounts of flatus, no bowel movement. Maintaining O2 sats in the 90s on 3 L nasal cannula. Afebrile. 10/30/22 sitting up at side of bed, feeling better today. 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 Reports she ambulated in the hallway yesterday, tolerating exertion well. NG tube clamped since yesterday. Denies nausea or vomiting Receiving TPN, Lantus increased yesterday with blood sugars in the lower 200s. Reports burping. Denies bowel movement, flatus. 10/31/2022 slept well. NG clamped, no nausea or vomiting. Passing flatus. Denies bowel movement. Pain controlled with SHELTER MONITOR. Continues on TPN, blood sugars in the 200s, Levemir adjusted. Apparently yesterday morning, patient did not receive her a.m. Levemir insulin. Reports she ambulated in room yesterday. Potassium 3.2. Denies chest pain, palpitations or shortness of breath, maintaining O2 sats in the high 90s on 2 L. Objective - Vital Signs Vital signs: Vital Signs Temp 98.8 F 10/31/22 06:44 Pulse 90 10/31/22 06:44 Resp 15 10/31/22 06:44 BP 149/78 10/31/22 06:44 Pulse Ox 97 10/31/22 06:44 FiO2 Intake & Output 10/30/22 10/31/22 10/31/22 18:59 06:59 18:59 Other: Voiding Method Toilet Toilet Bedside Commode Bedside Commode # Voids 4 2 # Bowel Movements 1 - Exam PHYSICAL EXAM: VITAL SIGNS: As above GENERAL: Alert and oriented 3, lying in bed, no acute distress HEENT: Normocephalic, Conjunctivae normal. eyes normal.NGT clamped. NECK: Supple, No JVD. CARDIOVASCULAR: S1, S2 regular. No murmur RESPIRATION: Unlabored, equal air entry, Breath sounds diminished in the bases. ABDOMEN: Soft, status post surgery, wearing an abdominal binder.Prevana wound vac. LEGS: No edema. no swelling NERVOUS SYSTEM: Cranial N 2-12 grossly normal. No focal deficits. Strength and sensation grossly intact. Skin: Warm and dry, no rash - Labs CBC & Chem 7: 10/28/22 06:28 10/31/22 06:28 Labs: Abnormal Lab Results - Last 24 Hours (Table) 10/30/22 10/30/22 10/31/22 Range/Units 11:27 16:53 00:15 Potassium (3.5-5.1) mmol/L BUN (7-17) mg/dL Creatinine (0.52-1.04) mg/dL Glucose (74-99) mg/dL POC Glucose (mg/dL) 282 H 296 H 275 H (70-110) mg/dL Calcium (8.4-10.2) mg/dL Phosphorus (2.5-4.5) mg/dL Total Protein (6.3-8.2) g/dL Albumin (3.5-5.0) g/dL 10/31/22 10/31/22 Range/Units 06:08 06:28 Potassium 3.2 L (3.5-5.1) mmol/L BUN 6 L (7-17) mg/dL Creatinine 0.28 L (0.52-1.04) mg/dL Glucose 274 H (74-99) mg/dL POC Glucose (mg/dL) 261 H (70-110) mg/dL Calcium 7.9 L (8.4-10.2) mg/dL Phosphorus 2.4 L (2.5-4.5) mg/dL Total Protein 5.1 L (6.3-8.2) g/dL Albumin 2.6 L (3.5-5.0) g/dL Microbiology - Last 24 Hours (Table) 10/25/22 06:33 Blood Culture - Final Blood Assessment and Plan Assessment: Acute abdominal pain, partial small bowel obstruction and ventral hernia with multiple abdominal adhesions, in a patient with history of bowel obstruction, status post exploratory laparotomy with extensive lysis of adhesions for small bowel obstruction and malignant severe intestinal adhesions over 3 hours, with wound vac. Large incarcerated abdominal wall hernia, recurrent with small enlarged bowel incarceration Acute hypoxic respiratory failure, atelectasis ,postoperative, expected outcome, secondary to the above Leukocytosis secondary to the above Diabetes mellitus type 2, hyperglycemia, hemoglobin A1c 11.5, further diabetic education outpatient in clinic with PCP Hypertension Hyperlipidemia History of seizure disorder Gastroesophageal reflux disease Former nicotine dependence Arthritis Morbid obesity, BMI 35 Plan: Continue on current medication regime ,monitoring and symptomatic treatment. Receiving TPN, close monitoring of blood sugarsl.IV fluid hydration. Encourage ambulation, up in chair for all meals. PT/OT consulted. Pain management/NGT maintenance as per general surgery. Aggressive pulmonary toileting with incentive spirometer reinforced. Wean off oxygen. The impression and plan of care has been dictated as directed. : I performed a history and examination of this patient, discussed the same with the dictator. I agree with the dictator's note ,documented as a scribe. Any additional findings or plans will be noted.
[2022-10-31 11:17] LABS: Glucose,Whole Blood 241 mg/dL (70-110)
[2022-10-31] MEDS ORDERED: POTASSIUM CHLORIDE ER 20 MEQ TAB.ER PO STA (13:07)
--- NOTE | 2022-10-31 13:17 | P.DS ---
Providers Date of admission: 10/24/22 22:18 Expected date of discharge: 10/31/22 Attending physician: Chacha Mckenna Consults: 10/24/22 22:32 Consult Physician Routine Consulting Provider: Jaison Brandon Consult Reason/Comments: medical management Do you want consulting provider notified?: Yes Primary care physician: Henny [place] Hospital Course: CHIEF COMPLAINT: Bowel obstruction HISTORY OF PRESENT ILLNESS: The patient is a 52-year-old female admitted for intractable abdominal pain due to bowel obstruction. She is status post extensive lysis of adhesions 10/27/2022. She is having bowel movements, multiple in the last 2 days. She is tolerating liquid diet. She is on TPN. ROS: No reports of nausea and vomiting. No fevers or chills. No new chest pain. No productive sputum PHYSICAL EXAM: VITAL SIGNS: Reviewed CONSTITUTIONAL: Well developed and in no acute distress. EYES: Conjuctivae without sclera icterus. Extraocular movements grossly intact. HEAD, EARS, NOSE, THROAT: Moist buccal mucosa. Head is atraumatic, normocephalic. Hears conversational speech. No nasal drainage. RESPIRATORY: Non-labored respirations and equal bilateral excursions. CARDIOVASCULAR: Palpable 2+ radial pulses. ABDOMEN: Midline incision intact. Incisional wound VAC system intact. MUSCULOSKELETAL: No gross deformity of the lower extremities noted. No clubbing. No cyanosis. SKIN: Good skin turgor. Well perfused. NEUROLOGIC: Cranial nerves II through XII grossly intact. No focal or lateralizing signs. PSYCH: Appropriate affect. Alert and oriented to person, place and time. CLINICAL LABS: Reviewed. Potassium low, 3.2 ASSESSMENT: 1. Bowel obstruction due to intra-abdominal adhesions 2. Chronic pain syndrome 3. Hypokalemia PLAN: 1. Continue incisional wound VAC system at home 2. Oral supplement potassium 40 mEq 3. Weaning TPN 4. Low fiber diet 5. Stable for discharge once point TPN Patient Condition at Discharge: Stable Plan - Discharge Summary Discharge Rx Participant: Yes New Discharge Prescriptions: New Ibuprofen [Motrin] 600 mg PO Q8HR PRN #30 tab PRN Reason: Pain Acetaminophen Tab [Tylenol Tab] 1,000 mg PO Q6HR PRN #30 tablet PRN Reason: Pain Continue Atorvastatin [Lipitor] 40 mg PO HS Docusate [Colace] 100 mg PO BID cap Insulin Aspart [NovoLOG Flexpen] See Protocol SQ TID-W/MEALS PRN #10 ml PRN Reason: Blood Sugar - High Aspirin 81 mg PO DAILY Ticagrelor [Brilinta] 90 mg PO BID #60 tab Pregabalin [Lyrica] 75 mg PO BID 30 Days #60 cap Melatonin 5 mg PO HS Multivitamins, Thera [Multivitamin (formulary)] 1 tab PO DAILY HYDROcodone/APAP 7.5-325MG [[place] 7.5-325] 1 tab PO Q6HR PRN 30 Days #120 tab PRN Reason: Pain Furosemide [Lasix] 20 mg PO DAILY Potassium Chloride ER [K-Dur 10] 10 meq PO DAILY Andrew/D3/Mag11/Zinc/Cracking Still Operator/Orque/Bor [Caltrate 600+D Plus Tablet] 1 tab PO BID Omeprazole 20 mg PO HS #30 cap lisinopriL [Zestril] 10 mg PO DAILY #30 tab Loratadine [Claritin] 10 mg PO DAILY PRN PRN Reason: Allergy Symptoms Insulin Glargine,Hum.rec.anlog [Francesco Amaya U-100] 26 unit SQ HS Cholecalciferol [Vitamin D3 (25 Mcg = 1000 Iu)] 25 mcg PO DAILY Cyclobenzaprine [Flexeril] 5 mg PO TID PRN 30 Days #90 tab PRN Reason: Muscle Spasm Morphine Sulfate ER [Ms Contin] 15 mg PO Q12HR 30 Days #60 tab Discharge Medication List Omeprazole 20 mg PO HS #30 cap 03/20/21 [Rx] lisinopriL [Zestril] 10 mg PO DAILY #30 tab 03/20/21 [Rx] Atorvastatin [Lipitor] 40 mg PO HS 03/26/21 [History] Docusate [Colace] 100 mg PO BID cap 04/29/21 [Rx] Insulin Aspart [NovoLOG Flexpen] See Protocol SQ TID-W/MEALS PRN #10 ml 04/29/21 [Rx] Aspirin 81 mg PO DAILY 09/10/21 [History] Pregabalin [Lyrica] 75 mg PO BID 30 Days #60 cap 01/03/22 [Rx] Ticagrelor [Brilinta] 90 mg PO BID #60 tab 01/03/22 [Rx] Insulin Glargine,Hum.rec.anlog [Basaglar Kwikpen U-100] 26 unit SQ HS 04/22/22 [History] Loratadine [Claritin] 10 mg PO DAILY PRN 04/22/22 [History] Melatonin 5 mg PO HS 04/22/22 [History] Multivitamins, Thera [Multivitamin (formulary)] 1 tab PO DAILY 07/23/22 [History] Cholecalciferol [Vitamin D3 (25 Mcg = 1000 Iu)] 25 mcg PO DAILY 08/20/22 [History] HYDROcodone/APAP 7.5-325MG [[place] 7.5-325] 1 tab PO Q6HR PRN 30 Days #120 tab 10/01/22 [Rx] Cyclobenzaprine [Flexeril] 5 mg PO TID PRN 30 Days #90 tab 10/08/22 [Rx] Morphine Sulfate ER [Ms Contin] 15 mg PO Q12HR 30 Days #60 tab 10/08/22 [Rx] Andrew/D3/Mag11/Zinc/Cracking Still Operator/Roque/Bor [Caltrate 600+D Plus Tablet] 1 tab PO BID 10/24/22 [History] Furosemide [Lasix] 20 mg PO DAILY 10/24/22 [History] Potassium Chloride ER [K-Dur 10] 10 meq PO DAILY 10/24/22 [History] Acetaminophen Tab [Tylenol Tab] 1,000 mg PO Q6HR PRN #30 tablet 10/31/22 [Rx] Ibuprofen [Motrin] 600 mg PO Q8HR PRN #30 tab 10/31/22 [Rx] Follow up Appointment(s)/Referral(s): Henny Kramer DO [Primary Care Provider] - 11/05/22 12:45 pm ([place] office.) [facility] [place] [facility] - 11/12/22 Chacha Mckenna MD [Family Provider] - 11/04/22 Patient Instructions/Handouts: Lysis of Abdominal Adhesions (DC) Activity/Diet/Wound Care/Special Instructions: Using antibacterial soap. No lifting over 10 pounds 2 weeks, Nov 10, 2022 PAIN MANAGEMENT PER YOUR PAIN SPECIALIST May shower. No bathtub soaks for 2 weeks, Nov 10, 2022 Wear abdominal binder daily for comfort except for showering. Use ice along incisions for today to prevent swelling. Take tylenol, aleve/ibuprofen, simethicone scheduled for 3 days for best pain relief Discharge Disposition: HOME SELF-CARE
[2022-10-31 15:09] VITALS: BP 144/86; PULSE 93; RESP 16; TEMP 98.4
== END 2022-10-31 18:20 | disposition home or self-care (01) | DRG 335 ==
LOC: EC 19:14 → 4SSUR 22:18
PROVIDERS: ADMIT Surgery Plastic and Reconstructive Surgery; ATTEND Surgery Plastic and Reconstructive Surgery
PROC: 0D9670Z Drainage of Stomach with Drainage Device, Via Natural or Artificial Opening (ICD-10-PCS; 2022-10-24)
PROC: 3E0436Z Introduction of Nutritional Substance into Central Vein, Percutaneous Approach (ICD-10-PCS; 2022-10-27)
PROC: 02HV33Z Insertion of Infusion Device into Superior Vena Cava, Percutaneous Approach (ICD-10-PCS; 2022-10-27)
PROC: 0DNE0ZZ Release Large Intestine, Open Approach (ICD-10-PCS; principal; 2022-10-27 13:00)
PROC: 0DN80ZZ Release Small Intestine, Open Approach (ICD-10-PCS; principal; 2022-10-27 13:00)
DX: K56.51 Intestinal adhesions [bands], with partial obstruction (principal); J96.01 Acute respiratory failure with hypoxia; K65.9 Peritonitis, unspecified; K43.6 Other and unspecified ventral hernia with obstruction, without gangrene; J98.11 Atelectasis; L02.31 Cutaneous abscess of buttock; E11.40 Type 2 diabetes mellitus with diabetic neuropathy, unspecified; E11.51 Type 2 diabetes mellitus with diabetic peripheral angiopathy without gangrene; E66.01 Morbid (severe) obesity due to excess calories; Z68.35 Body mass index [BMI] 35.0-35.9, adult; E78.5 Hyperlipidemia, unspecified; E87.6 Hypokalemia; F40.240 Claustrophobia; F41.0 Panic disorder [episodic paroxysmal anxiety]; G40.909 Epilepsy, unspecified, not intractable, without status epilepticus; G89.4 Chronic pain syndrome; I50.9 Heart failure, unspecified; I11.0 Hypertensive heart disease with heart failure; I25.10 Atherosclerotic heart disease of native coronary artery without angina pectoris; E11.65 Type 2 diabetes mellitus with hyperglycemia; D72.829 Elevated white blood cell count, unspecified; K21.9 Gastro-esophageal reflux disease without esophagitis; K43.2 Incisional hernia without obstruction or gangrene; M19.90 Unspecified osteoarthritis, unspecified site; M79.3 Panniculitis, unspecified; N73.6 Female pelvic peritoneal adhesions (postinfective); Z79.02 Long term (current) use of antithrombotics/antiplatelets; Z79.4 Long term (current) use of insulin; Z79.82 Long term (current) use of aspirin; Z79.899 Other long term (current) drug therapy; Z87.442 Personal history of urinary calculi; Z87.891 Personal history of nicotine dependence
CPT/HCPCS: 36415; 36573; 71045; 74176; 80048; 80053; 81001; 82040; 82150; 82330; 83036; 83605; 83690; 83735; 84100; 84478; 85025; 85610; 86850; 86900; 86901; 87040; 93005; 93306; 94760

== ENCOUNTER 2022-11-01 00:10 | Inpatient (IN) | payer MEDICARE, OTHER ==
[2022-11-01 01:02] LABS: Basophils % (A) 1 %; Eosinophils # (A) 0.4 k/uL (0-0.7); Eosinophils % (A) 4 %; HCT 38.6 % (34.0-46.0); HGB 12.7 gm/dL (11.4-16.0); Lymphocytes % (A) 21 %; MCH 26.9 pg (25.0-35.0); MCV 81.4 fL (80.0-100.0); Mean Platelet Volume 8.7; Monocytes # (A) 0.4 k/uL (0-1.0); Monocytes % (A) 4 %; Neutrophils # (A) 6.6 k/uL (1.3-7.7); Neutrophils % (A) 69 %; Platelet Count 249 k/uL (150-450); RBC 4.74 m/uL (3.80-5.40); RDW 14.1 % (11.5-15.5); WBC 9.6 k/uL (3.8-10.6)
[2022-11-01 01:12] LABS: ALT 26 U/L (4-34); AST 46 U/L (14-36); African American GFR (CKD) >90 (>60 ml/min/1.73 sqM); Alkaline Phosphatase 110 U/L (38-126); Anion Gap 9 mmol/L; Blood Urea Nitrogen 4 mg/dL (7-17); Calcium 8.4 mg/dL (8.4-10.2); Carbon Dioxide 22 mmol/L (22-30); Chloride 106 mmol/L (98-107); Glucose 152 mg/dL (74-99); Magnesium 1.6 mg/dL (1.6-2.3); Non-African American GFR(CKD) >90 (>60 ml/min/1.73 sqM); Potassium 3.1 mmol/L (3.5-5.1); Sodium 137 mmol/L (137-145); Total Bilirubin 0.7 mg/dL (0.2-1.3); Total Protein 5.8 g/dL (6.3-8.2)
[2022-11-01 01:20] LABS: NT-Pro-B-Type Natriuretic Pept 1020 pg/mL
[2022-11-01 01:22] LABS: Partial Thromboplastin Time 25.2 sec (22.0-30.0); Prothrombin Time 10.4 sec (9.0-12.0)
[2022-11-01 02:50] LABS: Appearance,Urine Clear (Clear); Bacteria,Urine Occasional /hpf; Bilirubin,Urine Negative (Negative); Blood,Urine Negative (Negative); Color,Urine Colorless; Glucose,Urine (UA) Negative (Negative); Ketones,Urine Trace (Negative); Leukocyte Esterase,Urine Moderate (Negative); Mucus,Urine Rare /hpf; Nitrite,Urine Negative (Negative); Protein,Urine Negative (Negative); RBC,Urine 1 /hpf (0-5); Specific Gravity,Urine 1.009 (1.001-1.035); Squamous Epithelial Cell,Urine 1 /hpf (0-4); Urobilinogen,Urine <2.0 mg/dL (<2.0); WBC,Urine 27 /hpf (0-5)
[2022-11-01 03:02] LABS: ABG Base Excess 4.3 mmol/L; ABG HCO3 27 mmol/L (21-25); ABG Oxygen Saturation 95.6 % (94-97); ABG PCO2 29 mmHg (35-45); ABG PO2 71 mmHg (83-108); ABG TCO2 27 mmol/L (19-24); Allen Test Performed? Yes
[2022-11-01] MEDS ORDERED: cefTRIAXone IN SWFI 1,000 MG/10 ML SYRINGE IVP STA (04:11)
--- NOTE | 2022-11-01 04:34 | CT ---
CT CHEST FOR PULMONARY EMBOLISM. EXAMINATION TYPE: CT chest angio for PE DATE OF EXAM: 11/01/2022 INDICATION: Short of breath CT DLP: 184 6. mGycm, Automated exposure control for dose reduction was used. CONTRAST: Patient injected with 100 mL of Isovue 370. COMPARISON: TECHNIQUE: CT of the chest is performed on a spiral scan at 2 mm thick sections. Study is performed with intravenous contrast timed for evaluation for pulmonary embolism. This will limit additional po rtions of the evaluation. 3-D MIP images reconstructed by the technologist are reviewed on the compu ter in the coronal and sagittal planes. FINDINGS: No persistent filling defects are evident to suggest an acute pulmonary embolism. No mediastinal or hilar adenopathy enlarged by CT criteria is evident. The ascending aorta diameter at the level of the main pulmonary artery is 3.8 cm. The main pulmonary artery diameter at the bifur cation is 3.7 cm. There is some streak opacity in the posterior right lung base extending to the peripheral margin. Fin dings may be related to some streak atelectasis. There may be some compressive atelectasis in the po sterior right lung base. Consider pneumonia. Follow-up can be performed. Limited CT section through the upper abdomen are unremarkable. IMPRESSIONS: 1. No acute pulmonary embolism. 2. Streaky opacity and increased density in the dependent right lung base. Correlate for atelectasis or pneumonia. Follow-up can be performed as clinically indicated.
[2022-11-01] MEDS ORDERED: NALOXONE 0.4 MG/ML 1 ML VIAL IV PRN (05:01)
--- NOTE | 2022-11-01 05:01 | ED ---
SOB HPI - General Chief Complaint: Shortness of Breath Stated Complaint: SOB Time Seen by Provider: 11/01/22 00:15 Source: patient, EMS Mode of arrival: EMS Limitations: no limitations - History of Present Illness Initial Comments: 52-year-old female with past medical history of diabetes, hypertension, high cholesterol who presents to the emergency department reporting shortness of breath. She was discharged from our hospital earlier today. She had been hospitalized for abdominal pain, bowel obstruction which required lysis of adhesions. Procedure was performed on the . She states that when she got home she has been extremely fatigued. felt as if she was slightly confused. She reports to sudden onset of shortness of breath. Admits to a cough. No fevers. Has had some lower extremity swelling. No history of DVT or PE. Patient found by EMS to be extremely diaphoretic however was maintaining oxygen saturations in the 90s. No other alleviating, precipitating or modifying factors - Related Data Home Medications Medication Instructions Recorded Confirmed Atorvastatin [Lipitor] 40 mg PO HS 03/26/21 10/24/22 Aspirin 81 mg PO DAILY 09/10/21 10/24/22 Insulin Glargine,Hum.rec.anlog 26 unit SQ HS 04/22/22 10/24/22 [Basaglar Kwikpen U-100] Loratadine [Claritin] 10 mg PO DAILY PRN 04/22/22 10/24/22 Melatonin 5 mg PO HS 04/22/22 10/24/22 Multivitamins, Thera [Multivitamin 1 tab PO DAILY 07/23/22 10/24/22 (formulary)] Cholecalciferol [Vitamin D3 (25 25 mcg PO DAILY 08/20/22 10/24/22 Mcg = 1000 Iu)] Andrew/D3/Mag11/Zinc/Belt And Link Shop Supervisor/Roque/Bor 1 tab PO BID 10/24/22 10/24/22 [Caltrate 600+D Plus Tablet] Furosemide [Lasix] 20 mg PO DAILY 10/24/22 10/24/22 Potassium Chloride ER [K-Dur 10] 10 meq PO DAILY 10/24/22 10/24/22 Previous Rx's Medication Instructions Recorded Omeprazole 20 mg PO HS #30 cap 03/20/21 lisinopriL [Zestril] 10 mg PO DAILY #30 tab 03/20/21 Docusate [Colace] 100 mg PO BID cap 04/29/21 Insulin Aspart [NovoLOG Flexpen] See Protocol SQ TID-W/MEALS PRN 04/29/21 #10 ml Pregabalin [Lyrica] 75 mg PO BID 30 Days #60 cap 01/03/22 Ticagrelor [Brilinta] 90 mg PO BID #60 tab 01/03/22 HYDROcodone/APAP 7.5-325MG [[place] 1 tab PO Q6HR PRN 30 Days #120 tab 10/01/22 7.5-325] Cyclobenzaprine [Flexeril] 5 mg PO TID PRN 30 Days #90 tab 10/08/22 Morphine Sulfate ER [Ms Contin] 15 mg PO Q12HR 30 Days #60 tab 10/08/22 Acetaminophen Tab [Tylenol Tab] 1,000 mg PO Q6HR PRN #30 tablet 10/31/22 Ibuprofen [Motrin] 600 mg PO Q8HR PRN #30 tab 10/31/22 Allergies Allergy/AdvReac Type Severity Reaction Status Date / Time raspberry Allergy Severe throat Verified 08/13/22 11:08 swelling, buprenorphine [From Suboxone] Allergy Swelling Verified 08/13/22 11:08 duloxetine [From Cymbalta] Allergy Confusion/s Verified 08/13/22 11:08 eizures gabapentin Allergy Swelling Verified 08/13/22 11:08 naloxone [From Suboxone] Allergy Swelling Verified 08/13/22 11:08 NSAIDS (Non-Steroidal Allergy Unknown Verified 08/13/22 11:08 Anti-Inflamma Childhood Review of Systems ROS Statement: Those systems with pertinent positive or pertinent negative responses have been documented in the HPI. ROS Other: All systems not noted in ROS Statement are negative. Past Medical History Past Medical History: Diabetes Mellitus, GERD/Reflux, Hyperlipidemia, Hypertension, Osteoarthritis (OA), Seizure Disorder Additional Past Medical History / Comment(s): Hx bowel obstruction, kidney stones. migraines, last seizure 2013-due to cymbalta, varicose veins, rt lower leg edema, abdominal hernia History of Any Multi-Drug Resistant Organisms: None Reported, MRSA Date of last positivie culture/infection: 2012 MDRO Source:: stomach mesh Past Surgical History: Back Surgery, Bladder Surgery, Section, Cholecystectomy, Hernia Repair, Hysterectomy, Orthopedic Surgery, Tonsillectomy Additional Past Surgical History / Comment(s): Ablation of lumbar nerve, COLONOSCOPY. stent rt leg, hernia repair with mesh(mesh later removed due to infection), arthroscopy left knee, abdomen scar tissue removal. Past Anesthesia/Blood Transfusion Reactions: Motion Sickness Additional Past Anesthesia/Blood Transfusion Reaction / Comment(s): Claustrophobia. Date of Last Stent Placement:: 01/04/2021 Past Psychological History: Anxiety, Panic Disorder Smoking Status: Former smoker Past Alcohol Use History: None Reported Past Drug Use History: None Reported - Past Family History Mother Family Medical History: Cancer Additional Family Medical History / Comment(s): Mother had breast cancer Father Family Medical History: Cancer Additional Family Medical History / Comment(s): Father at 42 yrs of age from agent orange exposure. General Exam Limitations: no limitations General appearance: alert, in distress Head exam: Present: atraumatic, normocephalic, normal inspection Eye exam: Present: normal appearance, PERRL, EOMI. Absent: scleral icterus, conjunctival injection, periorbital swelling ENT exam: Present: normal exam, mucous membranes moist Neck exam: Present: normal inspection. Absent: tenderness, meningismus, lymphadenopathy Respiratory exam: Present: rales (Right base), accessory muscle use Cardiovascular Exam: Present: regular rate, normal rhythm, normal heart sounds. Absent: systolic murmur, diastolic murmur, rubs, gallop, clicks GI/Abdominal exam: Present: soft, other (Anterior wound VAC). Absent: distended, tenderness, guarding, rebound, rigid Neurological exam: Present: alert, oriented X3, CN II-XII intact Psychiatric exam: Present: flat affect Course Vital Signs 11/01/22 11/01/22 11/01/22 00:11 00:19 00:30 Temperature 97.5 F L Pulse Rate 92 106 H 79 Respiratory 16 16 18 Rate Blood Pressure 147/66 148/134 O2 Sat by Pulse 96 96 96 Oximetry 11/01/22 11/01/22 11/01/22 01:00 03:41 05:27 Temperature Pulse Rate 118 H 98 93 Respiratory 16 23 24 Rate Blood Pressure 151/61 177/77 153/75 O2 Sat by Pulse 96 99 97 Oximetry Procedures - ABG Interpretation Ph: 7.56 PCO2: 29 PO2: 71 Bicarbonate: 26 Interpretation: respiratory alkalosis Medical Decision Making - Medical Decision Making Was pt. sent in by a medical professional or institution (CHARLES Brand, TELEVISION ANCHOR, urgent care, hospital, or prison...) When possible be specific @ -No Did you speak to anyone other than the patient for history (EMS, parent, family, police, friend...)? What history was obtained from this source @ -Spoke with EMS who provided history Did you review nursing and triage notes (agree or disagree)? Why? @ -I reviewed and agree with nursing and triage notes Were old charts reviewed (outside hosp., previous admission, EMS record, old EKG, old radiological studies, urgent care reports/EKG's, prison records)? Report findings @ -I reviewed the discharge summary from earlier today Differential Diagnosis (chest pain, altered mental status, abdominal pain women, abdominal pain men, vaginal bleeding, weakness, fever, dyspnea, syncope, headache, dizziness, GI bleed, back pain, seizure, CVA, palpatations, mental health, musculoskeletal)? @ -Differential Dyspnea: Coronary syndrome, arrhythmia, tamponade, asthma, COPD, pulmonary embolism, pneumonia, pneumothorax, pulmonary effusion, anaphylaxis, diabetic ketoacidosis, flailed chest, pulmonary contusion, diaphragmatic rupture, anemia, neuromuscular, this is not meant to be an all-inclusive list. EKG interpreted by me (3pts min.). @ -Yes and demonstrates sinus rhythm with rate of 91. VT interval 182. QRS 73. QTC of 367. No acute ST segment elevations or depressions X-rays interpreted by me (1pt min.). @ -None done CT interpreted by me (1pt min.). @ -CT demonstrates pneumonia and no PE U/S interpreted by me (1pt. min.). @ -None done What testing was considered but not performed or refused? (CT, X-rays, U/S, labs)? Why? @ -None What meds were considered but not given or refused? Why? @ -None Did you discuss the management of the patient with other professionals (royer yeboah i.e. CHARLES Brand, TELEVISION ANCHOR, lab, RT, psych nurse, medical social consultant, executive producer promos, teacher, financial services officer, telephonic case manager)? Give summary @ -Spoke with Tammy from [facility] who will admit patient Was smoking cessation discussed for >3mins.? @ -No Was critical care preformed (if so, how long)? @ -No Were there social determinants of health that impacted care today? How? (Homelessness, low income, unemployed, alcoholism, drug addiction, transportation, low edu. Level, literacy, decrease access to med. care, residential, rehab)? @ -No Was there de-escalation of care discussed even if they declined (Discuss DNR or withdrawal of care, Hospice)? DNR status @ -No What co-morbidities impacted this encounter? (DM, HTN, Smoking, COPD, CAD, Cancer, CVA, ARF, Chemo, Hep., AIDS, mental health diagnosis, sleep apnea, morbid obesity)? @ -None Was patient admitted / discharged? Hospital course, mention meds given and route, prescriptions, significant lab abnormalities, going to OR and other pertinent info. @ -Upon arrival patient was placed in room 2. A thorough history and physical exam is performed. She is place on continuous pulse ox and cardiac monitoring. Laboratory studies are conducted. Patient is placed on oxygen for comfort. D- dimer is elevated. She is sent for CT of her chest which does not demonstrate a PE however there is pneumonia. Patient started on antibiotics and breathing treatments. Urinalysis does demonstrate questionable UTI. Patient will be a dmitted for antibiotics. Spoke with Dr. Pfeiffer. Wants patient admitted to medicine with a consult placed for her. Refused admission to herself. Patient was agreeable to this plan and admitted in stable condition Undiagnosed new problem with uncertain prognosis? @ -Yes Drug Therapy requiring intensive monitoring for toxicity (Heparin, Nitro, Insulin, Cardizem)? @ -No Were any procedures done? @ -No Diagnosis/symptom? @ -Acute respiratory insufficiency, acute pneumonia acute UTI, acute encephalopathy secondary to pneumonia and UTI Acute, or Chronic, or Acute on Chronic? @ -Acute Uncomplicated (without systemic symptoms) or Complicated (systemic symptoms)? @ -Complicated Side effects of treatment? @ -No Exacerbation, Progression, or Severe Exacerbation? @ -No Poses a threat to life or bodily function? How? (Chest pain, [place], [place], pneumonia, PE, COPD, DKA, ARF, appy, cholecystitis, CVA, Diverticulitis, Homicidal, Suicidal, threat to staff... and all critical care pts) @ -No - Lab Data Result diagrams: 11/01/22 00:26 11/01/22 00:26 Lab Results 11/01/22 11/01/22 11/01/22 Range/Units 00:26 00:26 00:26 WBC 9.6 (3.8-10.6) k/uL RBC 4.74 (3.80-5.40) m/uL Hgb 12.7 (11.4-16.0) gm/dL Hct 38.6 (34.0-46.0) % MCV 81.4 (80.0-100.0) fL MCH 26.9 (25.0-35.0) pg MCHC 33.0 (31.0-37.0) g/dL RDW 14.1 (11.5-15.5) % Plt Count 249 (150-450) k/uL MPV 8.7 Neutrophils % 69 % Lymphocytes % 21 % Monocytes % 4 % Eosinophils % 4 % Basophils % 1 % Neutrophils # 6.6 (1.3-7.7) k/uL Lymphocytes # 2.0 (1.0-4.8) k/uL Monocytes # 0.4 (0-1.0) k/uL Eosinophils # 0.4 (0-0.7) k/uL Basophils # 0.0 (0-0.2) k/uL PT 10.4 (9.0-12.0) sec INR 1.0 (<1.2) APTT 25.2 (22.0-30.0) sec D-Dimer 9.80 H (<0.60) mg/L FEU Sample Site ABG pH (7.35-7.45) ABG pCO2 (35-45) mmHg ABG pO2 (83-108) mmHg ABG HCO3 (21-25) mmol/L ABG Total CO2 (19-24) mmol/L ABG O2 Saturation (94-97) % ABG Base Excess mmol/L Jakob Test FiO2 % Sodium 137 (137-145) mmol/L Potassium 3.1 L (3.5-5.1) mmol/L Chloride 106 (98-107) mmol/L Carbon Dioxide 22 (22-30) mmol/L Anion Gap 9 mmol/L BUN 4 L (7-17) mg/dL Creatinine 0.22 L (0.52-1.04) mg/dL Est GFR (CKD-EPI)AfAm >90 (>60 ml/min/1.73 sqM) Est GFR (CKD-EPI)NonAf >90 (>60 ml/min/1.73 sqM) Glucose 152 H (74-99) mg/dL Plasma Lactic Acid Niels (0.7-2.0) mmol/L Calcium 8.4 (8.4-10.2) mg/dL Magnesium 1.6 (1.6-2.3) mg/dL Total Bilirubin 0.7 (0.2-1.3) mg/dL AST 46 H (14-36) U/L ALT 26 (4-34) U/L Alkaline Phosphatase 110 (38-126) U/L Troponin I (0.000-0.034) ng/mL NT-Pro-B Natriuret Pep 1020 pg/mL Total Protein 5.8 L (6.3-8.2) g/dL Albumin 3.0 L (3.5-5.0) g/dL Urine Color Urine Appearance (Clear) Urine pH (5.0-8.0) Ur Specific [place] (1.001-1.035) Urine Protein (Negative) Urine Glucose (UA) (Negative) Urine Ketones (Negative) Urine Blood (Negative) Urine Nitrite (Negative) Urine Bilirubin (Negative) Urine Urobilinogen (<2.0) mg/dL Ur Leukocyte Esterase (Negative) Urine RBC (0-5) /hpf Urine WBC (0-5) /hpf Ur Squamous Epith Cells (0-4) /hpf Urine Bacteria (None) /hpf Urine Mucus (None) /hpf 11/01/22 11/01/22 11/01/22 Range/Units 00:26 00:26 02:18 WBC (3.8-10.6) k/uL RBC (3.80-5.40) m/uL Hgb (11.4-16.0) gm/dL Hct (34.0-46.0) % MCV (80.0-100.0) fL MCH (25.0-35.0) pg MCHC (31.0-37.0) g/dL RDW (11.5-15.5) % Plt Count (150-450) k/uL MPV Neutrophils % % Lymphocytes % % Monocytes % % Eosinophils % % Basophils % % Neutrophils # (1.3-7.7) k/uL Lymphocytes # (1.0-4.8) k/uL Monocytes # (0-1.0) k/uL Eosinophils # (0-0.7) k/uL Basophils # (0-0.2) k/uL PT (9.0-12.0) sec INR (<1.2) APTT (22.0-30.0) sec D-Dimer (<0.60) mg/L FEU Sample Site ABG pH (7.35-7.45) ABG pCO2 (35-45) mmHg ABG pO2 (83-108) mmHg ABG HCO3 (21-25) mmol/L ABG Total CO2 (19-24) mmol/L ABG O2 Saturation (94-97) % ABG Base Excess mmol/L Jakob Test FiO2 % Sodium (137-145) mmol/L Potassium (3.5-5.1) mmol/L Chloride (98-107) mmol/L Carbon Dioxide (22-30) mmol/L Anion Gap mmol/L BUN (7-17) mg/dL Creatinine (0.52-1.04) mg/dL Est GFR (CKD-EPI)AfAm (>60 ml/min/1.73 sqM) Est GFR (CKD-EPI)NonAf (>60 ml/min/1.73 sqM) Glucose (74-99) mg/dL Plasma Lactic Acid Niels 1.4 (0.7-2.0) mmol/L Calcium (8.4-10.2) mg/dL Magnesium (1.6-2.3) mg/dL Total Bilirubin (0.2-1.3) mg/dL AST (14-36) U/L ALT (4-34) U/L Alkaline Phosphatase (38-126) U/L Troponin I 0.021 (0.000-0.034) ng/mL NT-Pro-B Natriuret Pep pg/mL Total Protein (6.3-8.2) g/dL Albumin (3.5-5.0) g/dL Urine Color Colorless Urine Appearance Clear (Clear) Urine pH 7.0 (5.0-8.0) Ur Specific [place] 1.009 (1.001-1.035) Urine Protein Negative (Negative) Urine Glucose (UA) Negative (Negative) Urine Ketones Trace H (Negative) Urine Blood Negative (Negative) Urine Nitrite Negative (Negative) Urine Bilirubin Negative (Negative) Urine Urobilinogen <2.0 (<2.0) mg/dL Ur Leukocyte Esterase Moderate H (Negative) Urine RBC 1 (0-5) /hpf Urine WBC 27 H (0-5) /hpf Ur Squamous Epith Cells 1 (0-4) /hpf Urine Bacteria Occasional H (None) /hpf Urine Mucus Rare H (None) /hpf 11/01/22 Range/Units 02:59 WBC (3.8-10.6) k/uL RBC (3.80-5.40) m/uL Hgb (11.4-16.0) gm/dL Hct (34.0-46.0) % MCV (80.0-100.0) fL MCH (25.0-35.0) pg MCHC (31.0-37.0) g/dL RDW (11.5-15.5) % Plt Count (150-450) k/uL MPV Neutrophils % % Lymphocytes % % Monocytes % % Eosinophils % % Basophils % % Neutrophils # (1.3-7.7) k/uL Lymphocytes # (1.0-4.8) k/uL Monocytes # (0-1.0) k/uL Eosinophils # (0-0.7) k/uL Basophils # (0-0.2) k/uL PT (9.0-12.0) sec INR (<1.2) APTT (22.0-30.0) sec D-Dimer (<0.60) mg/L FEU Sample Site L radial ABG pH 7.56 H* (7.35-7.45) ABG pCO2 29 L (35-45) mmHg ABG pO2 71 L (83-108) mmHg ABG HCO3 27 H (21-25) mmol/L ABG Total CO2 27 H (19-24) mmol/L ABG O2 Saturation 95.6 (94-97) % ABG Base Excess 4.3 mmol/L Jakob Test Yes FiO2 28 % Sodium (137-145) mmol/L Potassium (3.5-5.1) mmol/L Chloride (98-107) mmol/L Carbon Dioxide (22-30) mmol/L Anion Gap mmol/L BUN (7-17) mg/dL Creatinine (0.52-1.04) mg/dL Est GFR (CKD-EPI)AfAm (>60 ml/min/1.73 sqM) Est GFR (CKD-EPI)NonAf (>60 ml/min/1.73 sqM) Glucose (74-99) mg/dL Plasma Lactic Acid Niels (0.7-2.0) mmol/L Calcium (8.4-10.2) mg/dL Magnesium (1.6-2.3) mg/dL Total Bilirubin (0.2-1.3) mg/dL AST (14-36) U/L ALT (4-34) U/L Alkaline Phosphatase (38-126) U/L Troponin I (0.000-0.034) ng/mL NT-Pro-B Natriuret Pep pg/mL Total Protein (6.3-8.2) g/dL Albumin (3.5-5.0) g/dL Urine Color Urine Appearance (Clear) Urine pH (5.0-8.0) Ur Specific [place] (1.001-1.035) Urine Protein (Negative) Urine Glucose (UA) (Negative) Urine Ketones (Negative) Urine Blood (Negative) Urine Nitrite (Negative) Urine Bilirubin (Negative) Urine Urobilinogen (<2.0) mg/dL Ur Leukocyte Esterase (Negative) Urine RBC (0-5) /hpf Urine WBC (0-5) /hpf Ur Squamous Epith Cells (0-4) /hpf Urine Bacteria (None) /hpf Urine Mucus (None) /hpf Disposition Clinical Impression: Acute respiratory insufficiency, Healthcare-associated pneumonia, UTI (urinary tract infection), Encephalopathy acute Disposition: ADMITTED IP TO THIS HOSP Condition: Stable Is patient prescribed a controlled substance at d/c from ED?: No Time of Disposition: 05:01 Decision to Admit Reason: Admit from EC Decision Date: 11/01/22 Decision Time: 05:01
[2022-11-01] MEDS ORDERED: ACETAMINOPHEN TAB 325 MG TAB PO PRN (05:12)
[2022-11-01] MEDS ORDERED: PNEUMONIA PROTOCOL UTILIZED 1 EACH MISC PO PRN (05:16)
[2022-11-01] MEDS ORDERED: AZITHROMYCIN 500 MG in SODIUM CHLORIDE 0.9% 250 ML IVPB ONE (05:30)
[2022-11-01 06:17] LABS: ABG PH 7.56 (7.35-7.45)
[2022-11-01] MEDS ORDERED: ONDANSETRON 4 MG/2 ML VIAL IVP PRN (07:35)
[2022-11-01] MEDS: IPRATROPIUM-ALBUTEROL 3 ML NEB INHALATION SCH ×5 (07:42→23:56)
[2022-11-01] MEDS: PANTOPRAZOLE 40 MG/10 ML VIAL IVP SCH (09:15)
[2022-11-01] MEDS: POTASSIUM CHLORIDE ER 20 MEQ TAB.ER PO SCH ×2 (09:15→12:22)
--- NOTE | 2022-11-01 10:46 | US ---
EXAMINATION TYPE: US venous doppler duplex LE DATE OF EXAM: 11/01/2022 9:13 AM COMPARISON: NONE CLINICAL INDICATION: Female, 52 years old with history of elevated DD recent surgery; No redness. Sw elling. Not on blood thinners. Hx right leg stent. SIDE PERFORMED: Bilateral TECHNIQUE: The lower extremity deep venous system is examined utilizing real time linear array sonog [place] with graded compression, doppler sonography and color-flow sonography. VESSELS IMAGED: Common Femoral Vein Deep Femoral Vein Greater Saphenous Vein * Femoral Vein Popliteal Vein Small Saphenous Vein * Proximal Calf Veins (* superficial vessels) Right Leg: Negative for DVT Left Leg: Negative for DVT IMPRESSION: 1. Bilateral lower extremity ultrasound negative for deep venous thrombosis.
[2022-11-01] MEDS ORDERED: ACETAMINOPHEN TAB 500 MG TAB PO PRN (11:27)
--- NOTE | 2022-11-01 11:44 | P.GSCN ---
History of Present Illness Consult date: 11/01/22 History of present illness: CHIEF COMPLAINT: Shortness of breath HISTORY OF PRESENT ILLNESS: The patient is a 52-year-old female recently discharged yesterday for a bowel obstruction status post lysis of adhesions 10/27/2022 who was doing well. She reports her hospital course she did not have shortness of breath. Prior to discharge, patient denied any shortness of breath and confirms no chest pain. She reports new symptoms of shortness of breath that started last night at 11 PM. As a result, she presented back to the emergency room and diagnosed with pn eum[place] per CT imaging. This morning, she reports using her symptoms around. She still complains of shortness of breath. Imaging studies are negative for pulmonary embolism. No presence of leukocytosis on admission, WBC normal. PAST MEDICAL HISTORY: See list and reviewed PAST SURGICAL HISTORY: See list and reviewed CURRENT MEDICATIONS: See list and reviewed ALLERGIES: See list and reviewed SOCIAL HISTORY: See list and reviewed FAMILY HISTORY: See list and reviewed REVIEW OF ORGAN SYSTEMS: CONSTITUTIONAL: Present fever, no chills. Denies recent weight loss. HEENT: Denies any trouble with vision, hearing or nosebleeds. No difficulty swallowing. LYMPHATIC: The patient denies any lumps and bumps around the neck. ENDOCRINE: Denies any thyroid disorders. Denies any blood sugar glucose intolerance. RESPIRATORY: Reports new shortness of breath that started last night. CARDIOVASCULAR: Denies history of chest pain with exertion. GASTROINTESTINAL: Multiple surgeries for bowel obstruction, status post lysis of adhesions 10/27/2022. She is having bowel movements. GENITOURINARY: Denies any blood in urine or increased urinary frequency. MUSCULOSKELETAL: Denies current joint arthritis. NEUROLOGIC: Denies any numbness or tingling along the distal extremities. No seizure disorders or headaches. PSYCHIATRIC: Denies any depression or suicidal ideation. HEMATOLOGIC: Denies any abnormal bleeding or bruising. PHYSICAL EXAMINATION: VITALS: Reviewed. GENERAL: Well-developed and in no acute distress. Pleasant. HEENT: No sclera icterus. Extraocular movements grossly intact. Moist buccal mucosa. Head is atraumatic, normocephalic. Hears conversational speech. No nasal drainage. NECK: Supple without lymphadenopathy. No JV distention. CHEST: Equal bilateral excursions. No tachypnea. CARDIOVASCULAR: Regular rate and rhythm. Palpable 2+ radial pulses. ABDOMEN: Midline dressing intact. No diffuse peritonitis. Incisional wound VAC system present. MUSCULOSKELETAL: No clubbing, cyanosis or edema. NEUROLOGIC: No focal or lateralizing signs. PSYCH: Appropriate affect. Alert and oriented to person, place and time. SKIN: Well perfused. Good skin turgor. LABS: Reviewed. White blood cell count normal, 9.16. ABG, pH 7.56, alkalotic STUDIES: CT of the chest reviewed demonstrating no pulmonary embolism. No free air underneath the diaphragm. No large lung consolidation. This is my independent interpretation. REPORT: CT of the chest report demonstrates atelectasis and pneumonia. ASSESSMENT: 1. Pneumonia, present on admission per computed tomography scan 2. Status post lysis of adhesions for bowel obstruction, resolved PLAN: 1. Incentive spirometer 10 times per hour while awake 2. Recommend protonix 3. May benefit from pulmonary consultation due acuity of symptoms and alkalosis 4. Will discontinue midline dressing Thank you very much for allowing me to participate in the care of your patient. Past Medical History Past Medical History: Diabetes Mellitus, GERD/Reflux, Hyperlipidemia, Hypertension, Osteoarthritis (OA), Seizure Disorder Additional Past Medical History / Comment(s): Hx bowel obstruction, kidney stones. migraines, last seizure 2013-due to cymbalta, varicose veins, rt lower leg edema, abdominal hernia History of Any Multi-Drug Resistant Organisms: None Reported, MRSA Year Discovered:: 2012 MDRO Source:: stomach mesh Past Surgical History: Back Surgery, Bladder Surgery, Section, Cholecystectomy, Hernia Repair, Hysterectomy, Orthopedic Surgery, Tonsillectomy Additional Past Surgical History / Comment(s): Ablation of lumbar nerve, COLONOSCOPY. stent rt leg, hernia repair with mesh(mesh later removed due to infection), arthroscopy left knee, abdomen scar tissue removal. Past Anesthesia/Blood Transfusion Reactions: Motion Sickness Additional Past Anesthesia/Blood Transfusion Reaction / Comm: Claustrophobia. Date of Last Stent Placement:: 01/04/2021 Past Psychological History: Anxiety, Panic Disorder Smoking Status: Former smoker Past Alcohol Use History: None Reported Past Drug Use History: None Reported - Past Family History Mother Family Medical History: Cancer Additional Family Medical History / Comment(s): Mother had breast cancer Father Family Medical History: Cancer Additional Family Medical History / Comment(s): Father at 42 yrs of age from agent orange exposure. Medications and Allergies Home Medications Medication Instructions Recorded Confirmed Type Omeprazole 20 mg PO HS #30 cap 03/20/21 11/01/22 Rx lisinopriL [Zestril] 10 mg PO DAILY #30 tab 03/20/21 11/01/22 Rx Atorvastatin [Lipitor] 40 mg PO HS 03/26/21 11/01/22 History Docusate [Colace] 100 mg PO BID cap 04/29/21 11/01/22 Rx Insulin Aspart [NovoLOG Flexpen] See Protocol SQ TID-W/MEALS PRN 04/29/21 11/01/22 Rx #10 ml Aspirin 81 mg PO DAILY 09/10/21 11/01/22 History Pregabalin [Lyrica] 75 mg PO BID 30 Days #60 cap 01/03/22 11/01/22 Rx Ticagrelor [Brilinta] 90 mg PO BID #60 tab 01/03/22 11/01/22 Rx Insulin Glargine,Hum.rec.anlog 26 unit SQ HS 04/22/22 11/01/22 History [Basaglar Kwikpen U-100] Loratadine [Claritin] 10 mg PO DAILY PRN 04/22/22 11/01/22 History Melatonin 5 mg PO HS 04/22/22 11/01/22 History Multivitamins, Thera [Multivitamin 1 tab PO DAILY 07/23/22 11/01/22 History (formulary)] Cholecalciferol [Vitamin D3 (25 25 mcg PO DAILY 08/20/22 11/01/22 History Mcg = 1000 Iu)] HYDROcodone/APAP 7.5-325MG [[place] 1 tab PO Q6HR PRN 30 Days #120 tab 10/01/22 11/01/22 Rx 7.5-325] Cyclobenzaprine [Flexeril] 5 mg PO TID PRN 30 Days #90 tab 10/08/22 11/01/22 Rx Morphine Sulfate ER [Ms Contin] 15 mg PO Q12HR 30 Days #60 tab 10/08/22 11/01/22 Rx Andrew/D3/Mag11/Zinc/Book Sewing Machine Operator/Roque/Bor 1 tab PO BID 10/24/22 11/01/22 History [Caltrate 600+D Plus Tablet] Furosemide [Lasix] 20 mg PO DAILY 10/24/22 11/01/22 History Potassium Chloride ER [K-Dur 10] 10 meq PO DAILY 10/24/22 11/01/22 History Acetaminophen Tab [Tylenol Tab] 1,000 mg PO Q6HR PRN #30 tablet 10/31/22 11/01/22 Rx Ibuprofen [Motrin] 600 mg PO Q8HR PRN #30 tab 10/31/22 11/01/22 Rx Allergies Allergy/AdvReac Type Severity Reaction Status Date / Time raspberry Allergy Severe throat Verified 08/13/22 11:08 swelling, buprenorphine [From Suboxone] Allergy Swelling Verified 08/13/22 11:08 duloxetine [From Cymbalta] Allergy Confusion/s Verified 08/13/22 11:08 eizures gabapentin Allergy Swelling Verified 08/13/22 11:08 naloxone [From Suboxone] Allergy Swelling Verified 08/13/22 11:08 NSAIDS (Non-Steroidal Allergy Unknown Verified 08/13/22 11:08 Anti-Inflamma Childhood Surgical - Exam Vital Signs Temp Pulse Resp Pulse Ox 97.5 F L 92 16 96 11/01/22 00:11 11/01/22 00:11 11/01/22 00:11 11/01/22 00:11 Results - Labs 11/01/22 00:26 11/01/22 00:26 Abnormal Lab Results - Last 24 Hours (Table) 11/01/22 11/01/22 11/01/22 Range/Units 00:26 00:26 02:18 D-Dimer 9.80 H (<0.60) mg/L FEU ABG pH (7.35-7.45) ABG pCO2 (35-45) mmHg ABG pO2 (83-108) mmHg ABG HCO3 (21-25) mmol/L ABG Total CO2 (19-24) mmol/L Potassium 3.1 L (3.5-5.1) mmol/L BUN 4 L (7-17) mg/dL Creatinine 0.22 L (0.52-1.04) mg/dL Glucose 152 H (74-99) mg/dL AST 46 H (14-36) U/L Total Protein 5.8 L (6.3-8.2) g/dL Albumin 3.0 L (3.5-5.0) g/dL Urine Ketones Trace H (Negative) Ur Leukocyte Esterase Moderate H (Negative) Urine WBC 27 H (0-5) /hpf Urine Bacteria Occasional H (None) /hpf Urine Mucus Rare H (None) /hpf 11/01/22 Range/Units 02:59 D-Dimer (<0.60) mg/L FEU ABG pH 7.56 H* (7.35-7.45) ABG pCO2 29 L (35-45) mmHg ABG pO2 71 L (83-108) mmHg ABG HCO3 27 H (21-25) mmol/L ABG Total CO2 27 H (19-24) mmol/L Potassium (3.5-5.1) mmol/L BUN (7-17) mg/dL Creatinine (0.52-1.04) mg/dL Glucose (74-99) mg/dL AST (14-36) U/L Total Protein (6.3-8.2) g/dL Albumin (3.5-5.0) g/dL Urine Ketones (Negative) Ur Leukocyte Esterase (Negative) Urine WBC (0-5) /hpf Urine Bacteria (None) /hpf Urine Mucus (None) /hpf Diabetes panel 11/01/22 Range/Units 00:26 Sodium 137 (137-145) mmol/L Potassium 3.1 L (3.5-5.1) mmol/L Chloride 106 (98-107) mmol/L Carbon Dioxide 22 (22-30) mmol/L BUN 4 L (7-17) mg/dL Creatinine 0.22 L (0.52-1.04) mg/dL Glucose 152 H (74-99) mg/dL Calcium 8.4 (8.4-10.2) mg/dL AST 46 H (14-36) U/L ALT 26 (4-34) U/L Alkaline Phosphatase 110 (38-126) U/L Total Protein 5.8 L (6.3-8.2) g/dL Albumin 3.0 L (3.5-5.0) g/dL Calcium panel 11/01/22 Range/Units 00:26 Calcium 8.4 (8.4-10.2) mg/dL Albumin 3.0 L (3.5-5.0) g/dL Pituitary panel 11/01/22 Range/Units 00:26 Sodium 137 (137-145) mmol/L Potassium 3.1 L (3.5-5.1) mmol/L Chloride 106 (98-107) mmol/L Carbon Dioxide 22 (22-30) mmol/L BUN 4 L (7-17) mg/dL Creatinine 0.22 L (0.52-1.04) mg/dL Glucose 152 H (74-99) mg/dL Calcium 8.4 (8.4-10.2) mg/dL Adrenal panel 11/01/22 Range/Units 00:26 Sodium 137 (137-145) mmol/L Potassium 3.1 L (3.5-5.1) mmol/L Chloride 106 (98-107) mmol/L Carbon Dioxide 22 (22-30) mmol/L BUN 4 L (7-17) mg/dL Creatinine 0.22 L (0.52-1.04) mg/dL Glucose 152 H (74-99) mg/dL Calcium 8.4 (8.4-10.2) mg/dL Total Bilirubin 0.7 (0.2-1.3) mg/dL AST 46 H (14-36) U/L ALT 26 (4-34) U/L Alkaline Phosphatase 110 (38-126) U/L Total Protein 5.8 L (6.3-8.2) g/dL Albumin 3.0 L (3.5-5.0) g/dL
[2022-11-01] MEDS ORDERED: FUROSEMIDE 10 MG/ML 4 ML VIAL IV SCH (12:00)
--- NOTE | 2022-11-01 14:05 | P.HPIM ---
History of Present Illness 52-year-old female was discharged yesterday after abdominal surgery that is bowel resection and lysis of adhesions. Patient comes in with comments of shortness of breath was on 4 L of oxygen and was saturating well. Patient had a CT angios the chest which did not show any pulmonary embolism there are some areas of atelectasis but there is no pneumonia on the CT of the chest to progastrin will be obtained there may be some groundglass T is patient does have some peripheral edema. Patient is all carotic with a pH of 7.56 and pCO2 of 29 probably secondary to her anxiety and hyperventilation. Patient has a surgical drain in the abdomen is obese denied any history of sleep apnea. Patient was apparently extreme be confused yesterday which resolved at this time. Patient is on baclofen, [place], morphine for pain as an outpatient. Patient also had venous Doppler bilateral lower extremity which did not show any DVT REVIEW OF SYSTEMS: CONSTITUTIONAL: No fever, no malaise, no fatigue. HEENT: No recent visual problems or hearing problems. Denied any sore throat. CARDIOVASCULAR: No chest pain, orthopnea, PND, no palpitations, no syncope. PULMONARY: no hemoptysis. GASTROINTESTINAL: No diarrhea, no nausea, no vomiting, no abdominal pain. NEUROLOGICAL: No headaches, no weakness, no numbness. HEMATOLOGICAL: Denies any bleeding or petechiae. GENITOURINARY: Denies any burning micturition, frequency, or urgency. MUSCULOSKELETAL/RHEUMATOLOGICAL: Denies any joint pain, swelling, or any muscle pain. ENDOCRINE: Denies any polyuria or polydipsia. The rest of the 14-point review of systems is negative. PHYSICAL EXAMINATION: GENERAL: The patient is alert and oriented x3, not in any acute distress. Well developed, well nourished. Obese HEENT: Pupils are round and equally reacting to light. EOMI. No scleral icterus. No conjunctival pallor. Normocephalic, atraumatic. No pharyngeal erythema. No thyromegaly. CARDIOVASCULAR: S1 and S2 present. No murmurs, rubs, or gallops. PULMONARY: Chest is clear to auscultation, no wheezing or crackles. ABDOMEN: Soft, nontender, nondistended, normoactive bowel sounds. No palpable organomegaly. Wound VAC in place MUSCULOSKELETAL: No joint swelling or deformity. EXTREMITIES: No cyanosis, clubbing, or pedal edema. NEUROLOGICAL: Gross neurological examination did not reveal any focal deficits. SKIN: No rashes. Assessment and plan -Shortness of breath: Rule out pulmonary embolism there is no evidence of pneumonia on the computed tomography scan and medics will be discontinued. A she will be started on incentive spirometer there are some areas of atelectasis. Patient does have bilateral lower extremity edema and there is a possibility of groundglass a paced is on the chest CT may be related to IV fluids she was receiving during her last hospitalization some BNP is not much elevated is around 1000, patient will be started on 40 mg of IV Lasix daily. Patient is also all carotic secondary to anxiety and hyperventilation, patient's saturation s are 99% but still requesting oxygen and is on 3 L which will be weaned off. -Diabetes mellitus patient will be resumed on home regimen along with sliding scale insulin -hyperlipidemia -hypertension next and-seizure disorder for which patient will be resumed on home medications -Respiratory alkalosis: Secondary to hyperventilation and anxiety DVT prophylaxis: Lovenox Past Medical History Past Medical History: Diabetes Mellitus, GERD/Reflux, Hyperlipidemia, Hypertension, Osteoarthritis (OA), Seizure Disorder Additional Past Medical History / Comment(s): Hx bowel obstruction, kidney stones. migraines, last seizure 2013-due to cymbalta, varicose veins, rt lower leg edema, abdominal hernia History of Any Multi-Drug Resistant Organisms: None Reported, MRSA Date of last positivie culture/infection: 2012 MDRO Source:: stomach mesh Past Surgical History: Back Surgery, Bladder Surgery, Section, Cholecystectomy, Hernia Repair, Hysterectomy, Orthopedic Surgery, Tonsillectomy Additional Past Surgical History / Comment(s): Ablation of lumbar nerve, COLONOSCOPY. stent rt leg, hernia repair with mesh(mesh later removed due to infection), arthroscopy left knee, abdomen scar tissue removal. Past Anesthesia/Blood Transfusion Reactions: Motion Sickness Additional Past Anesthesia/Blood Transfusion Reaction / Comment(s): Claustrophobia. Date of Last Stent Placement:: 01/04/2021 Past Psychological History: Anxiety, Panic Disorder Smoking Status: Former smoker Past Alcohol Use History: None Reported Past Drug Use History: None Reported - Past Family History Mother Family Medical History: Cancer Additional Family Medical History / Comment(s): Mother had breast cancer Father Family Medical History: Cancer Additional Family Medical History / Comment(s): Father at 42 yrs of age from agent orange exposure. Medications and Allergies Home Medications Medication Instructions Recorded Confirmed Type Omeprazole 20 mg PO HS #30 cap 03/20/21 11/01/22 Rx lisinopriL [Zestril] 10 mg PO DAILY #30 tab 03/20/21 11/01/22 Rx Atorvastatin [Lipitor] 40 mg PO HS 03/26/21 11/01/22 History Docusate [Colace] 100 mg PO BID cap 04/29/21 11/01/22 Rx Insulin Aspart [NovoLOG Flexpen] See Protocol SQ TID-W/MEALS PRN 04/29/21 11/01/22 Rx #10 ml Aspirin 81 mg PO DAILY 09/10/21 11/01/22 History Pregabalin [Lyrica] 75 mg PO BID 30 Days #60 cap 01/03/22 11/01/22 Rx Ticagrelor [Brilinta] 90 mg PO BID #60 tab 01/03/22 11/01/22 Rx Insulin Glargine,Hum.rec.anlog 26 unit SQ HS 04/22/22 11/01/22 History [Basaglar Kwikpen U-100] Loratadine [Claritin] 10 mg PO DAILY PRN 04/22/22 11/01/22 History Melatonin 5 mg PO HS 04/22/22 11/01/22 History Multivitamins, Thera [Multivitamin 1 tab PO DAILY 07/23/22 11/01/22 History (formulary)] Cholecalciferol [Vitamin D3 (25 25 mcg PO DAILY 08/20/22 11/01/22 History Mcg = 1000 Iu)] HYDROcodone/APAP 7.5-325MG [[place] 1 tab PO Q6HR PRN 30 Days #120 tab 10/01/22 11/01/22 Rx 7.5-325] Cyclobenzaprine [Flexeril] 5 mg PO TID PRN 30 Days #90 tab 10/08/22 11/01/22 Rx Morphine Sulfate ER [Ms Contin] 15 mg PO Q12HR 30 Days #60 tab 10/08/22 11/01/22 Rx Andrew/D3/Mag11/Zinc/Tank Maker Wood/Roque/Bor 1 tab PO BID 10/24/22 11/01/22 History [Caltrate 600+D Plus Tablet] Furosemide [Lasix] 20 mg PO DAILY 10/24/22 11/01/22 History Potassium Chloride ER [K-Dur 10] 10 meq PO DAILY 10/24/22 11/01/22 History Acetaminophen Tab [Tylenol Tab] 1,000 mg PO Q6HR PRN #30 tablet 10/31/22 11/01/22 Rx Ibuprofen [Motrin] 600 mg PO Q8HR PRN #30 tab 10/31/22 11/01/22 Rx Allergies Allergy/AdvReac Type Severity Reaction Status Date / Time raspberry Allergy Severe throat Verified 08/13/22 11:08 swelling, buprenorphine [From Suboxone] Allergy Swelling Verified 08/13/22 11:08 duloxetine [From Cymbalta] Allergy Confusion/s Verified 08/13/22 11:08 eizures gabapentin Allergy Swelling Verified 08/13/22 11:08 naloxone [From Suboxone] Allergy Swelling Verified 08/13/22 11:08 NSAIDS (Non-Steroidal Allergy Unknown Verified 08/13/22 11:08 Anti-Inflamma Childhood Physical Exam Vitals: Vital Signs Temp Pulse Pulse Resp BP BP Pulse Ox 11/01/22 11:43 74 11/01/22 11:31 72 11/01/22 11:15 98.1 F 73 20 178/79 99 11/01/22 07:23 98.5 F 52 L 22 191/69 98 11/01/22 05:27 93 24 153/75 97 11/01/22 03:41 98 23 177/77 99 11/01/22 01:00 118 H 16 151/61 96 11/01/22 00:30 79 18 148/134 96 11/01/22 00:19 106 H 16 147/66 96 11/01/22 00:11 97.5 F L 92 16 96 Intake and Output 10/31/22 11/01/22 11/01/22 22:59 06:59 14:59 Other: Weight 99.337 kg Results CBC & Chem 7: 11/01/22 00:26 11/01/22 00:26 Labs: Abnormal Lab Results - Last 24 Hours (Table) 11/01/22 11/01/22 11/01/22 Range/Units 00:26 00:26 02:18 D-Dimer 9.80 H (<0.60) mg/L FEU ABG pH (7.35-7.45) ABG pCO2 (35-45) mmHg ABG pO2 (83-108) mmHg ABG HCO3 (21-25) mmol/L ABG Total CO2 (19-24) mmol/L Potassium 3.1 L (3.5-5.1) mmol/L BUN 4 L (7-17) mg/dL Creatinine 0.22 L (0.52-1.04) mg/dL Glucose 152 H (74-99) mg/dL AST 46 H (14-36) U/L Total Protein 5.8 L (6.3-8.2) g/dL Albumin 3.0 L (3.5-5.0) g/dL Urine Ketones Trace H (Negative) Ur Leukocyte Esterase Moderate H (Negative) Urine WBC 27 H (0-5) /hpf Urine Bacteria Occasional H (None) /hpf Urine Mucus Rare H (None) /hpf 11/01/22 Range/Units 02:59 D-Dimer (<0.60) mg/L FEU ABG pH 7.56 H* (7.35-7.45) ABG pCO2 29 L (35-45) mmHg ABG pO2 71 L (83-108) mmHg ABG HCO3 27 H (21-25) mmol/L ABG Total CO2 27 H (19-24) mmol/L Potassium (3.5-5.1) mmol/L BUN (7-17) mg/dL Creatinine (0.52-1.04) mg/dL Glucose (74-99) mg/dL AST (14-36) U/L Total Protein (6.3-8.2) g/dL Albumin (3.5-5.0) g/dL Urine Ketones (Negative) Ur Leukocyte Esterase (Negative) Urine WBC (0-5) /hpf Urine Bacteria (None) /hpf Urine Mucus (None) /hpf Thrombosis Risk Factor Assmnt - Choose All That Apply Any of the Below Risk Factors Present?: Yes Each Factor Represents 1 point: Age 41-60 years, Obesity (BMI >25), Swollen legs (current) Other Risk Factors: Yes Each Risk Factor Represents 2 Points: Major surgery Thrombosis Risk Factor Assessment Total Risk Factor Score: 5 Thrombosis Risk Factor Assessment Level: High Risk
[2022-11-01] MEDS ORDERED: POTASSIUM CHLORIDE ER 20 MEQ TAB.ER PO STA (14:18)
[2022-11-01] MEDS ORDERED: lisinopriL 10 MG TAB PO STA (14:41)
[2022-11-01] MEDS: HYDROcodone/APAP 7.5-325MG 1 EACH TAB PO PRN ×2 (17:09→23:46)
[2022-11-01 20:57] LABS: Glucose,Whole Blood 138 mg/dL (70-110)
[2022-11-01] MEDS ORDERED: NON FORMULARY DRUG (Omeprazole [Omeprazole] 20 MG Capsule) PO SCH (21:00)
[2022-11-01] MEDS: MELATONIN 5 MG TABLET PO SCH (21:44)
[2022-11-01] MEDS: ATORVASTATIN 40 MG TAB PO SCH (21:44)
[2022-11-01] MEDS: DOCUSATE 100 MG CAP PO SCH (21:44)
[2022-11-01] MEDS: PREGABALIN 75 MG CAP PO SCH (21:44)
[2022-11-01] MEDS: INSULIN DETEMIR (LEVEMIR) 100 UNIT/ML SYR SQ SCH (21:44)
[2022-11-01] MEDS: TICAGRELOR 90 MG TAB PO SCH (21:44)
[2022-11-01] MEDS ORDERED: IPRATROPIUM-ALBUTEROL 3 ML NEB INHALATION PRN (23:58)
[2022-11-02] MEDS: HYDROcodone/APAP 7.5-325MG 1 EACH TAB PO PRN ×3 (06:12→18:22)
[2022-11-02 07:16] LABS: Glucose,Whole Blood 101 mg/dL (70-110)
[2022-11-02] MEDS: IPRATROPIUM-ALBUTEROL 3 ML NEB INHALATION SCH ×4 (07:32→22:38)
[2022-11-02] MEDS ORDERED: FUROSEMIDE 10 MG/ML 4 ML VIAL IV SCH (09:00)
[2022-11-02] MEDS ORDERED: AZITHROMYCIN 500 MG TAB PO SCH (09:00)
[2022-11-02 09:04] LABS: Basophils # (A) 0.09 X 10*3/uL (0.00-0.10); Eosinophils % (A) 5.7 %; HCT 38.3 % (37.2-46.3); Lymphocytes # (A) 2.69 X 10*3/uL (0.90-5.00); Lymphocytes % (A) 30.5 %; MCHC 31.3 d/dL (32.0-37.0); MCV 82.9 FL (80.0-97.0); Mean Platelet Volume 10.8 FL (9.5-12.2); Monocytes # (A) 0.61 X 10*3/uL (0.20-1.00); Monocytes % (A) 6.9 %; NRBC Per 100 WBC 0 X 10*3/uL (0.00-0.01); Neutrophils # (A) 4.84 X 10*3/uL (1.80-7.70); Neutrophils % (A) 54.9 %; Platelet Count 285 X 10*3/uL (140-440); RBC 4.62 X 10*6/uL (4.10-5.20); RDW 14.3 % (11.5-14.5); WBC 8.82 X 10*3/uL (4.50-10.00)
[2022-11-02 09:16] LABS: Calcium 8.6 mg/dL (8.7-10.3); Carbon Dioxide 25.3 mmol/L (21.6-31.8); Chloride 103 mmol/L (96-109); Glucose 99 mg/dL (70-110); Potassium 3.5 mmol/L (3.5-5.5); Sodium 140 mmol/L (135-145)
[2022-11-02] MEDS: PANTOPRAZOLE 40 MG/10 ML VIAL IVP SCH (09:18)
[2022-11-02] MEDS: ASPIRIN 81 MG PO SCH (09:19)
[2022-11-02] MEDS: MULTIVITAMINS, THERA 1 EACH TAB PO SCH (09:19)
[2022-11-02] MEDS: ENOXAPARIN 40 MG/0.4 ML SYRINGE SQ SCH (09:19)
[2022-11-02] MEDS: PREGABALIN 75 MG CAP PO SCH ×2 (09:19→21:33)
[2022-11-02] MEDS: DOCUSATE 100 MG CAP PO SCH ×2 (09:19→21:33)
[2022-11-02] MEDS: lisinopriL 10 MG TAB PO SCH (09:19)
[2022-11-02] MEDS: TICAGRELOR 90 MG TAB PO SCH ×2 (09:19→21:33)
[2022-11-02] MEDS ORDERED: POTASSIUM CHLORIDE ER 20 MEQ TAB.ER PO STA (09:30)
[2022-11-02 11:20] LABS: Glucose,Whole Blood 111 mg/dL (70-110)
--- NOTE | 2022-11-02 11:46 | P.CNPUL ---
History of Present Illness Consult date: 11/02/22 Reason for consult: dyspnea History of present illness: This is a 52-year-old female patient who came back to the hospital because of increased shortness of breath. The patient was at home for few hours following her discharge and the patient felt short of breath. No reported chest pain. She was getting anxious. As such, she decided to come into the hospital again for further investigation. Noted the patient was found to have abnormal o bstruction and the patient underwent a lysis of adhesions on 10/27/2022. She is obese and she has an extensive number of comorbid conditions. At this point in time, she is on 2 L of oxygen by nasal cannula. Blood work is essentially within normal limits. The pro-calcitonin level is at 0.06. BUN is at 6 with a creatinine of 0.4. The white cell cause of 8.8. CT antigram of the chest was done and it showed some atelectatic changes in the right lung base. Otherwise there is no evidence of new pulmonary embolism or pneumonia. No history of asthma. No emphysema. No septal aspiration. No previous history of DVT or pulmonary embolism. Doppler of the lower extremity was negative. The patient was given Lasix and the patient has significant amount of urine output and the patient is currently on Lasix 40 mg IV every 24 hours. The patient has superficial wound VAC. Surgical one-sided dry clean and intact. Bowel sounds are present. No abdominal distention. No nausea or emesis. No aspiration. Review of Systems CONSTITUTIONAL: No fever, no malaise, no fatigue. HEENT: No recent visual problems or hearing problems. Denied any sore throat. CARDIOVASCULAR: No chest pain, orthopnea, PND, no palpitations, no syncope. PULMONARY: no hemoptysis. Shortness of breath as discussed above GASTROINTESTINAL: No diarrhea, no nausea, no vomiting, no abdominal pain. NEUROLOGICAL: No headaches, no weakness, no numbness. HEMATOLOGICAL: Denies any bleeding or petechiae. GENITOURINARY: Denies any burning micturition, frequency, or urgency. MUSCULOSKELETAL/RHEUMATOLOGICAL: Denies any joint pain, swelling, or any muscle pain. ENDOCRINE: Denies any polyuria or polydipsia. Past Medical History Past Medical History: Diabetes Mellitus, GERD/Reflux, Hyperlipidemia, Hypertension, Osteoarthritis (OA), Seizure Disorder Additional Past Medical History / Comment(s): Hx bowel obstruction, kidney stones. migraines, last seizure 2013-due to cymbalta, varicose veins, rt lower leg edema, abdominal hernia History of Any Multi-Drug Resistant Organisms: None Reported, MRSA Date of last positivie culture/infection: 2012 MDRO Source:: stomach mesh Past Surgical History: Back Surgery, Bladder Surgery, Section, Cholecystectomy, Hernia Repair, Hysterectomy, Orthopedic Surgery, Tonsillectomy Additional Past Surgical History / Comment(s): Ablation of lumbar nerve, COLONOSCOPY. stent rt leg, hernia repair with mesh(mesh later removed due to infection), arthroscopy left knee, abdomen scar tissue removal. Past Anesthesia/Blood Transfusion Reactions: Motion Sickness Additional Past Anesthesia/Blood Transfusion Reaction / Comment(s): Claustrophobia. Date of Last Stent Placement:: 01/04/2021 Past Psychological History: Anxiety, Panic Disorder Smoking Status: Former smoker Past Alcohol Use History: None Reported Past Drug Use History: None Reported - Past Family History Mother Family Medical History: Cancer Additional Family Medical History / Comment(s): Mother had breast cancer Father Family Medical History: Cancer Additional Family Medical History / Comment(s): Father at 42 yrs of age from agent orange exposure. Medications and Allergies Home Medications Medication Instructions Recorded Confirmed Type Omeprazole 20 mg PO HS #30 cap 03/20/21 11/01/22 Rx lisinopriL [Zestril] 10 mg PO DAILY #30 tab 03/20/21 11/01/22 Rx Atorvastatin [Lipitor] 40 mg PO HS 03/26/21 11/01/22 History Docusate [Colace] 100 mg PO BID cap 04/29/21 11/01/22 Rx Insulin Aspart [NovoLOG Flexpen] See Protocol SQ TID-W/MEALS PRN 04/29/21 11/01/22 Rx #10 ml Aspirin 81 mg PO DAILY 09/10/21 11/01/22 History Pregabalin [Lyrica] 75 mg PO BID 30 Days #60 cap 01/03/22 11/01/22 Rx Ticagrelor [Brilinta] 90 mg PO BID #60 tab 01/03/22 11/01/22 Rx Insulin Glargine,Hum.rec.anlog 26 unit SQ HS 04/22/22 11/01/22 History [Basaglar Kwikpen U-100] Loratadine [Claritin] 10 mg PO DAILY PRN 04/22/22 11/01/22 History Melatonin 5 mg PO HS 04/22/22 11/01/22 History Multivitamins, Thera [Multivitamin 1 tab PO DAILY 07/23/22 11/01/22 History (formulary)] Cholecalciferol [Vitamin D3 (25 25 mcg PO DAILY 08/20/22 11/01/22 History Mcg = 1000 Iu)] HYDROcodone/APAP 7.5-325MG [[place] 1 tab PO Q6HR PRN 30 Days #120 tab 10/01/22 11/01/22 Rx 7.5-325] Cyclobenzaprine [Flexeril] 5 mg PO TID PRN 30 Days #90 tab 10/08/22 11/01/22 Rx Morphine Sulfate ER [Ms Contin] 15 mg PO Q12HR 30 Days #60 tab 10/08/22 11/01/22 Rx Andrew/D3/Mag11/Zinc/Film Librarian/Roque/Bor 1 tab PO BID 10/24/22 11/01/22 History [Caltrate 600+D Plus Tablet] Furosemide [Lasix] 20 mg PO DAILY 10/24/22 11/01/22 History Potassium Chloride ER [K-Dur 10] 10 meq PO DAILY 10/24/22 11/01/22 History Acetaminophen Tab [Tylenol Tab] 1,000 mg PO Q6HR PRN #30 tablet 10/31/22 11/01/22 Rx Ibuprofen [Motrin] 600 mg PO Q8HR PRN #30 tab 10/31/22 11/01/22 Rx Allergies Allergy/AdvReac Type Severity Reaction Status Date / Time raspberry Allergy Severe throat Verified 08/13/22 11:08 swelling, buprenorphine [From Suboxone] Allergy Swelling Verified 08/13/22 11:08 duloxetine [From Cymbalta] Allergy Confusion/s Verified 08/13/22 11:08 eizures gabapentin Allergy Swelling Verified 08/13/22 11:08 naloxone [From Suboxone] Allergy Swelling Verified 08/13/22 11:08 NSAIDS (Non-Steroidal Allergy Unknown Verified 08/13/22 11:08 Anti-Inflamma Childhood Physical Exam Vitals: Vital Signs Temp Pulse Pulse Resp BP Pulse Ox 11/02/22 07:45 75 11/02/22 07:32 72 11/02/22 07:10 97.7 F 65 16 146/84 94 L 11/02/22 00:43 99.2 F 87 16 165/79 96 11/01/22 20:19 72 11/01/22 20:09 72 11/01/22 20:00 18 11/01/22 19:04 98 F 86 18 148/83 94 L 11/01/22 15:41 75 11/01/22 15:31 72 11/01/22 11:43 74 11/01/22 11:31 72 11/01/22 11:15 98.1 F 73 20 178/79 99 Intake and Output 11/01/22 11/02/22 11/02/22 22:59 06:59 14:59 Output Total 500 500 Balance -500 -500 Output: Urine 500 500 Other: Voiding Method External Catheter # Voids 2 GENERAL: The patient is alert and oriented x3, not in any acute distress. Well developed, well nourished. Obese, the patient is currently on 2 L of oxygen by nasal cannula Head exam was generally normal. There was no scleral icterus or corneal arcus. Mucous membranes were moist. HEENT: Pupils are round and equally reacting to light. EOMI. No scleral icterus. No conjunctival pallor. Normocephalic, atraumatic. No pharyngeal erythema. No thyromegaly. CARDIOVASCULAR: S1 and S2 present. No murmurs, rubs, or gallops. PULMONARY: Chest is clear to auscultation, no wheezing or crackles. ABDOMEN: Soft, nontender, nondistended, normoactive bowel sounds. No palpable organomegaly. Wound VAC in place, no abdominal distention MUSCULOSKELETAL: No joint swelling or deformity. Examination of the extremities revealed easily palpable radial, femoral and pedal pulses. There was no cyanosis, clubbing or edema. NEUROLOGICAL: Gross neurological examination did not reveal any focal deficits. Examination of the skin revealed no evidence of significant rashes, suspicious appearing nevi or other concerning lesions. Results - Laboratory Findings CBC and BMP: 11/02/22 06:10 11/02/22 06:10 ABG ABG pH 7.56 (7.35-7.45) H* 11/01/22 02:59 ABG pCO2 29 mmHg (35-45) L 11/01/22 02:59 ABG pO2 71 mmHg (83-108) L 11/01/22 02:59 ABG O2 Saturation 95.6 % (94-97) 11/01/22 02:59 PT/INR, D-dimer PT 10.4 sec (9.0-12.0) 11/01/22 00:26 INR 1.0 (<1.2) 11/01/22 00:26 D-Dimer 9.80 mg/L FEU (<0.60) H 11/01/22 00:26 Abnormal lab findings: Abnormal Labs 11/01/22 11/01/22 11/01/22 00:26 00:26 02:18 MCH MCHC Eosinophils # D-Dimer 9.80 H ABG pH ABG pCO2 ABG pO2 ABG HCO3 ABG Total CO2 Potassium 3.1 L BUN 4 L Creatinine 0.22 L Glucose 152 H POC Glucose (mg/dL) Calcium AST 46 H Total Protein 5.8 L Albumin 3.0 L Urine Ketones Trace H Ur Leukocyte Esterase Moderate H Urine WBC 27 H Urine Bacteria Occasional H Urine Mucus Rare H 11/01/22 11/01/22 11/02/22 02:59 20:56 06:10 MCH 26.0 L MCHC 31.3 L Eosinophils # 0.50 H D-Dimer ABG pH 7.56 H* ABG pCO2 29 L ABG pO2 71 L ABG HCO3 27 H ABG Total CO2 27 H Potassium BUN Creatinine Glucose POC Glucose (mg/dL) 138 H Calcium AST Total Protein Albumin Urine Ketones Ur Leukocyte Esterase Urine WBC Urine Bacteria Urine Mucus 11/02/22 06:10 MCH MCHC Eosinophils # D-Dimer ABG pH ABG pCO2 ABG pO2 ABG HCO3 ABG Total CO2 Potassium BUN 6.0 L Creatinine 0.4 L Glucose POC Glucose (mg/dL) Calcium 8.6 L AST Total Protein Albumin Urine Ketones Ur Leukocyte Esterase Urine WBC Urine Bacteria Urine Mucus - Diagnostic Findings Chest x-ray: image reviewed Assessment and Plan Plan: Shortness of breath, exact etiology is not clear. The CT angiogram of the chest showed no evidence of any pulmonary embolism. Some postsurgical atelectatic change in the right lung base. No pneumonia. No aspiration. No obstructive lung disease. Currently on 2 L of oxygen by nasal cannula. Breathing is comfortable. History of the possibility of a fluid overload as the patient was diabetes the patient improved with diuretics and she produced excellent urine output. Exploratory laparotomy with extensive lysis of adhesions for small loop bowel obstruction and malignant severe intestinal adhesion, surgery was done on 10/27/2022 for a small bowel obstruction and localized peritonitis in the right lower quadrant Incarcerated large abdominal wall hernia with small and large bowel incarceration Morbid obesity with a body mass index of 35 Diabetes mellitus type 2 Chronic pain syndrome Diabetic neuropathy. Hypertensive heart disease Peripheral vascular disease with previous estrogen refreshed in the right lower extremity Coronary artery disease Seizure disorder Claustrophobia. Motion sickness Hyperlipidemia Plan Patient was reassured Provide incentive spirometer Titrate oxygen flow to maintain a saturation above 90% Continue diuretics Resume all medications Wound care We'll continue to follow
--- NOTE | 2022-11-02 12:21 | P.PN ---
Subjective Progress Note Date: 11/02/22 She is having bowel movements and passing some flatus. "I feel pressure on my chest and belly." She was seen by pulmonary and re-assured Start gas-x Obtain chest and abdominal xray for follow up Remove dressing tomorrow. Objective - Vital Signs Vital signs: Vital Signs Temp 97.7 F 11/02/22 07:10 Pulse 74 11/02/22 11:27 Resp 16 11/02/22 11:17 BP 129/80 11/02/22 11:17 Pulse Ox 96 11/02/22 11:17 FiO2 Intake & Output 11/01/22 11/02/22 11/02/22 18:59 06:59 18:59 Output Total 1700 500 900 Balance -1700 -500 -900 Output: Urine 1700 500 900 Other: Voiding Method External Catheter External Catheter External Catheter # Voids 2 - Labs CBC & Chem 7: 11/02/22 06:10 11/02/22 06:10 Labs: Abnormal Lab Results - Last 24 Hours (Table) 11/01/22 11/02/22 11/02/22 Range/Units 20:56 06:10 06:10 MCH 26.0 L (27.0-32.0) pg MCHC 31.3 L (32.0-37.0) d/dL Eosinophils # 0.50 H (0.04-0.35) X 10*3/uL BUN 6.0 L (9.0-27.0) mg/dL Creatinine 0.4 L (0.6-1.5) mg/dL POC Glucose (mg/dL) 138 H (70-110) mg/dL Calcium 8.6 L (8.7-10.3) mg/dL 11/02/22 Range/Units 11:19 MCH (27.0-32.0) pg MCHC (32.0-37.0) d/dL Eosinophils # (0.04-0.35) X 10*3/uL BUN (9.0-27.0) mg/dL Creatinine (0.6-1.5) mg/dL POC Glucose (mg/dL) 111 H (70-110) mg/dL Calcium (8.7-10.3) mg/dL
[2022-11-02] MEDS: SIMETHICONE 80 MG CHEWABLE PO SCH ×3 (12:39→22:33)
--- NOTE | 2022-11-02 16:33 | P.PN ---
Subjective Progress Note Date: 11/02/22 52-year-old female was discharged yesterday after abdominal surgery that is bowel resection and lysis of adhesions. Patient comes in with comments of shortness of breath was on 4 L of oxygen and was saturating well. Patient had a CT angios the chest which did not show any pulmonary embolism there are some areas of atelectasis but there is no pneumonia on the CT of the chest to progastrin will be obtained there may be some groundglass T is patient does have some peripheral edema. Patient is all carotic with a pH of 7.56 and pCO2 of 29 probably secondary to her anxiety and hyperventilation. Patient has a surgical drain in the abdomen is obese denied any history of sleep apnea. Patient was apparently extreme be confused yesterday which resolved at this time. Patient is on baclofen, [place], morphine for pain as an outpatient. Patient also had venous Doppler bilateral lower extremity which did not show any DVT 11/12/2022 Patient evaluated in the medical floor she continues to report shortness of breath however feels that is because she is having abdominal distention which is presently up with her lungs. Lung sounds are clear today she continues on 2L of oxygen via nasal cannula, we will discontinue IV Lasix at this time and patient will be resumed on oral lasix. Blood cultures are negative labs are essentially unchanged. She continues with midline wound VAC with no signs of air leak. Recommending gas gtts for this patient and increase activity as tolerated. General surgery following and recommending to remove dressing tomorrow. Pulmonary was also consulted. Review of Systems Constitutional: Denied any fatigue denied any fever. Cardio vascular: denied any chest pain, palpitations Gastrointestinal: denied any nausea, vomiting, diarrhea with abdominal pain and distention Pulmonary: Denied any shortness of breath cough Neurologic denied any new focal deficits All inpatient medications were reviewed and appropriate changes in these medications as dictated in the interval history and assessment and plan. PHYSICAL EXAMINATION: GENERAL: The patient is alert and oriented x3, not in any acute distress. Well developed, well nourished. on 2L of oxygen. HEENT: Pupils are round and equally reacting to light. EOMI. No scleral icterus. No conjunctival pallor. Normocephalic, atraumatic. No pharyngeal erythema. No thyromegaly. CARDIOVASCULAR: S1 and S2 present. No murmurs, rubs, or gallops. PULMONARY: Chest is clear to auscultation, no wheezing or crackles. ABDOMEN: Soft, nontender, distended, upper quadrant is tympanic on assessment normoactive bowel sounds. No palpable organomegaly. Wound vac in place. MUSCULOSKELETAL: No joint swelling or deformity. EXTREMITIES: No cyanosis, clubbing, or pedal edema. NEUROLOGICAL: Gross neurological examination did not reveal any focal deficits. SKIN: No rashes. Assessment and plan -Shortness of breath likely due to abdominal distention, pulmonary embolism ruled out, there is atelectasis noted right lung base. No clear evidence of pneumonia. -Mild diastolic heart failure exacerbation treated with IV lasix and t ransitioned back to oral lasix. -Postoperative day #6 exploratory laparotomy with extensive lysis of adhesions for small bowel loop bowel obstruction and malignant severe intestinal adhesions over 3 hours, patient had SBO and localized peritonitis RLQ. Patient has incarcerated abdominal wall hernia. -Hx of hernia repear with MRSA infection to mesh and subsequent removal of infected mesh. -Diabetes mellitus type 2 -hyperlipidemia -hypertension -seizure disorder -Anxiety/panic disorder -Respiratory alkalosis: Secondary to hyperventilation and anxiety -Former smoker GI prophylaxis: DVT prophylaxis: Lovenox Full Code Patient is being followed by pulmonary for the shortness of breath with no clear etiology for the shortness of breath. Patient encouraged to continue on incentive spirometer 10 x an hour while awake and to increase activity level. Continue with wound vac and general surgery recommending to remove dressing tomorrow. Gas gtts have been added. Transitioned back to oral lasix. The impression and plan of care has been dictated by Nurse Sonya Pereira as directed. Dr. Paul MD I have performed a history and physical examination and medical decision making of this patient, discussed the same with the dictator, and agree with the dict ators assessment and plan as written, documented as a scribe. Based on total visit time, I have performed more than 50% of this visit. Objective - Vital Signs Vital signs: Vital Signs Temp 97.7 F 11/02/22 07:10 Pulse 74 11/02/22 11:27 Resp 16 11/02/22 11:17 BP 129/80 11/02/22 11:17 Pulse Ox 96 11/02/22 11:17 FiO2 Intake & Output 11/01/22 11/02/22 11/02/22 18:59 06:59 18:59 Output Total 1700 500 900 Balance -1700 -500 -900 Output: Urine 1700 500 900 Other: Voiding Method External Catheter External Catheter External Catheter # Voids 2 1 - Labs CBC & Chem 7: 11/02/22 06:10 11/02/22 06:10 Labs: Abnormal Lab Results - Last 24 Hours (Table) 11/01/22 11/02/22 11/02/22 Range/Units 20:56 06:10 06:10 MCH 26.0 L (27.0-32.0) pg MCHC 31.3 L (32.0-37.0) d/dL Eosinophils # 0.50 H (0.04-0.35) X 10*3/uL BUN 6.0 L (9.0-27.0) mg/dL Creatinine 0.4 L (0.6-1.5) mg/dL POC Glucose (mg/dL) 138 H (70-110) mg/dL Calcium 8.6 L (8.7-10.3) mg/dL 11/02/22 Range/Units 11:19 MCH (27.0-32.0) pg MCHC (32.0-37.0) d/dL Eosinophils # (0.04-0.35) X 10*3/uL BUN (9.0-27.0) mg/dL Creatinine (0.6-1.5) mg/dL POC Glucose (mg/dL) 111 H (70-110) mg/dL Calcium (8.7-10.3) mg/dL Microbiology - Last 24 Hours (Table) 11/01/22 04:30 Blood Culture - Preliminary Blood Assessment and Plan Time with Patient: Less than 30
[2022-11-02 17:36] LABS: Glucose,Whole Blood 150 mg/dL (70-110)
[2022-11-02 20:55] LABS: Glucose,Whole Blood 134 mg/dL (70-110)
[2022-11-02] MEDS: INSULIN DETEMIR (LEVEMIR) 100 UNIT/ML SYR SQ SCH (21:33)
[2022-11-02] MEDS: ATORVASTATIN 40 MG TAB PO SCH (21:33)
[2022-11-02] MEDS: MELATONIN 5 MG TABLET PO SCH (21:37)
[2022-11-03] MEDS: HYDROcodone/APAP 7.5-325MG 1 EACH TAB PO PRN ×4 (02:08→20:59)
[2022-11-03 03:11] LABS: Glucose,Whole Blood 99 mg/dL (70-110)
[2022-11-03 06:59] LABS: Glucose,Whole Blood 132 mg/dL (70-110)
[2022-11-03] MEDS: IPRATROPIUM-ALBUTEROL 3 ML NEB INHALATION SCH ×4 (07:35→20:38)
[2022-11-03] MEDS: ENOXAPARIN 40 MG/0.4 ML SYRINGE SQ SCH (07:58)
[2022-11-03] MEDS: DOCUSATE 100 MG CAP PO SCH ×2 (07:58→20:59)
[2022-11-03] MEDS: lisinopriL 10 MG TAB PO SCH (07:58)
[2022-11-03] MEDS: ASPIRIN 81 MG PO SCH (07:58)
[2022-11-03] MEDS: PREGABALIN 75 MG CAP PO SCH ×2 (07:59→20:58)
[2022-11-03] MEDS: TICAGRELOR 90 MG TAB PO SCH ×2 (07:59→20:58)
[2022-11-03] MEDS: MULTIVITAMINS, THERA 1 EACH TAB PO SCH (07:59)
[2022-11-03] MEDS: PANTOPRAZOLE 40 MG/10 ML VIAL IVP SCH (07:59)
--- NOTE | 2022-11-03 08:34 | XR ---
EXAMINATION TYPE: XR chest 2V DATE OF EXAM: 11/03/2022 7:25 AM COMPARISON: Chest radiographs from 10/28/2022 TECHNIQUE: XR chest 2V Frontal and lateral views of the chest. CLINICAL INDICATION:Female, 52 years old with history of shortness of breath, pneumonia; FINDINGS: Lungs/Pleura: Prominent interstitial lung markings are seen scattered throughout the lungs. No eviden ce of focal consolidation, pneumothorax or pleural effusion. Pulmonary vascularity: Unremarkable. Heart/mediastinum: Cardiomediastinal silhouette is unremarkable. Musculoskeletal: No acute osseous pathology. IMPRESSION: No acute cardiopulmonary disease/process.
--- NOTE | 2022-11-03 08:35 | XR ---
EXAMINATION TYPE: XR abdomen 2V DATE OF EXAM: 11/03/2022 7:25 AM INDICATION: Patient age:Female; 52 years old; Reason for study: abdominal distention recent bowel obstruction; [facility]. COMPARISON: 11/18/2018. TECHNIQUE: Two views of the abdomen were obtained. FINDINGS: The bowel gas pattern is nonspecific without dilated loops of small or large bowel. There i s no evidence for organomegaly or pneumoperitoneum. The osseous structures are intact. No abnormal calcifications are present. Fecal material and gas are demonstrated throughout the colon and rectum. Right pelvic stent graft in right medial upper leg stent grafts. Surgical clips are present. Multile андрей degeneration changes spine. Right upper quadrant cholecystectomy clips. IMPRESSION: Nonspecific bowel gas pattern without radiographic evidence for acute process.
[2022-11-03] MEDS: SIMETHICONE 80 MG CHEWABLE PO SCH ×3 (09:25→20:58)
[2022-11-03 11:51] LABS: Glucose,Whole Blood 164 mg/dL (70-110)
--- NOTE | 2022-11-03 12:47 | P.PN ---
Subjective Progress Note Date: 11/03/22 This is a 52-year-old female patient who came back to the hospital because of increased shortness of breath. The patient was at home for few hours following her discharge and the patient felt short of breath. No reported chest pain. She was getting anxious. As such, she decided to come into the hospital again for further investigation. Noted the patient was found to have abnormal obstruction and the patient underwent a lysis of adhesions on 10/27/2022. She is obese and she has an extensive number of comorbid conditions. At this point in time, she is on 2 L of oxygen by nasal cannula. Blood work is essentially within normal limits. The pro-calcitonin level is at 0.06. BUN is at 6 with a creatinine of 0.4. The white cell cause of 8.8. CT antigram of the chest was done and it showed some atelectatic changes in the right lung base. Otherwise there is no evidence of new pulmonary embolism or pneumonia. No history of asthma. No emphysema. No septal aspiration. No previous history of DVT or pulmonary embolism. Doppler of the lower extremity was negative. The patient was given Lasix and the patient has significant amount of urine output and the patient is currently on Lasix 40 mg IV every 24 hours. The patient has superficial wound VAC. Surgical one-sided dry clean and intact. Bowel sounds are present. No abdominal distention. No nausea or emesis. No aspiration. The patient is seen today in 11/03/2022 in follow-up on the regular medical floor. She is currently sitting up in bed. Awake and alert in no acute distress. She is maintaining O2 saturations in the upper 90s on 2 L/m per nasal cannula. Today's chest x-ray shows no acute cardiopulmonary process. Revealing no growth. Blood glucose 132. She is on DuoNeb inhalations. Encouraged regarding the increased use of the incentive spirometer. Lovenox for DVT prophylaxis. Objective - Vital Signs Vital signs: Vital Signs Temp 97.7 F 11/03/22 06:56 Pulse 86 11/03/22 11:50 Resp 18 11/03/22 06:56 BP 148/75 11/03/22 06:56 Pulse Ox 96 11/03/22 07:33 FiO2 Intake & Output 11/02/22 11/03/22 11/03/22 18:59 06:59 18:59 Output Total 900 Balance -900 Output: Urine 900 Other: Voiding Method External Catheter Toilet Diaper External Catheter # Voids 3 3 - Exam GENERAL: A 52-year-old female patient, alert and oriented x3, not in any acute distress. Obese, the patient is currently on 2 L of oxygen by nasal cannula Head exam was generally normal. There was no scleral icterus or corneal arcus. Mucous membranes were moist. HEENT: Pupils are round and equally reacting to light. EOMI. No scleral icterus. No conjunctival pallor. Normocephalic, atraumatic. No pharyngeal erythema. No thyromegaly. CARDIOVASCULAR: S1 and S2 present. No murmurs, rubs, or gallops. PULMONARY: Chest is clear to auscultation, no wheezing or crackles. ABDOMEN: Soft, nondistended, normoactive bowel sounds. No palpable organomegaly. Wound VAC in place. MUSCULOSKELETAL: No joint swelling or deformity. Examination of the extremities revealed easily palpable radial, femoral and pedal pulses. There was no cyanosis, clubbing or edema. NEUROLOGICAL: Gross neurological examination did not reveal any focal deficits. Examination of the skin revealed no evidence of significant rashes, suspicious appearing nevi or other concerning lesions. - Labs CBC & Chem 7: 11/02/22 06:10 11/02/22 06:10 Labs: Abnormal Lab Results - Last 24 Hours (Table) 11/02/22 11/02/22 11/03/22 Range/Units 17:30 20:51 06:57 POC Glucose (mg/dL) 150 H 134 H 132 H (70-110) mg/dL 11/03/22 Range/Units 11:50 POC Glucose (mg/dL) 164 H (70-110) mg/dL Microbiology - Last 24 Hours (Table) 11/01/22 04:30 Blood Culture - Preliminary Blood Assessment and Plan Assessment: Shortness of breath, exact etiology is not clear. The CT angiogram of the chest showed no evidence of any pulmonary embolism. Some postsurgical atelectatic change in the right lung base. No pneumonia. No aspiration. No obstructive lung disease. Currently on 2 L of oxygen by nasal cannula. Breathing is comfortable. Possibility of a fluid overload as the patient improved with diuretics and she produced excellent urine output. Exploratory laparotomy with extensive lysis of adhesions for small loop bowel obstruction and malignant severe intestinal adhesion, surgery was done on 10/27/2022 for a small bowel obstruction and localized peritonitis in the right lower quadrant Incarcerated large abdominal wall hernia with small and large bowel incarceration Morbid obesity with a body mass index of 35 Diabetes mellitus type 2 Chronic pain syndrome Diabetic neuropathy. Hypertensive heart disease Peripheral vascular disease with previous estrogen refreshed in the right lower extremity Coronary artery disease Seizure disorder Claustrophobia. Motion sickness Hyperlipidemia Plan: The patient was seen and evaluated Chest x-ray, labs and medications reviewed Currently stable from the pulmonary standpoint Encouraged increased use of the incentive spirometer Increase her activity as tolerated Home once cleared by surgical services I have personally seen and examined the patient, performed the documentation and the assessment and plan as written. Number of minutes spent on the visit: 10.
[2022-11-03 17:20] LABS: Glucose,Whole Blood 167 mg/dL (70-110)
--- NOTE | 2022-11-03 18:42 | P.PN ---
Subjective Progress Note Date: 11/03/22 She reports improvement of her breathing. No longer short of breath. She has appropriate right-sided abdominal pain. Dressing discontinued without infection. Abdominal x-ray reviewed without obstruction. Chest showed reviewed without consolidation. Clear from a surgical standpoint for discharge from medically stable Remission due to shortness of breath, related to recent hospitalization Objective - Vital Signs Vital signs: Vital Signs Temp 98.1 F 11/03/22 11:50 Pulse 80 11/03/22 15:14 Resp 18 11/03/22 11:50 BP 103/66 11/03/22 11:50 Pulse Ox 96 11/03/22 11:50 FiO2 Intake & Output 11/02/22 11/03/22 11/03/22 18:59 06:59 18:59 Output Total 900 Balance -900 Output: Urine 900 Other: Voiding Method External Catheter Toilet Diaper External Catheter # Voids 3 3 2 - Labs CBC & Chem 7: 11/02/22 06:10 11/02/22 06:10 Labs: Abnormal Lab Results - Last 24 Hours (Table) 11/02/22 11/03/22 11/03/22 Range/Units 20:51 06:57 11:50 POC Glucose (mg/dL) 134 H 132 H 164 H (70-110) mg/dL 11/03/22 Range/Units 17:19 POC Glucose (mg/dL) 167 H (70-110) mg/dL Microbiology - Last 24 Hours (Table) 11/01/22 04:30 Blood Culture - Preliminary Blood
[2022-11-03 19:43] LABS: Glucose,Whole Blood 269 mg/dL (70-110)
[2022-11-03] MEDS: ATORVASTATIN 40 MG TAB PO SCH (20:58)
[2022-11-03] MEDS: MELATONIN 5 MG TABLET PO SCH (20:59)
[2022-11-03] MEDS: INSULIN DETEMIR (LEVEMIR) 100 UNIT/ML SYR SQ SCH (20:59)
[2022-11-04] MEDS: HYDROcodone/APAP 7.5-325MG 1 EACH TAB PO PRN ×4 (03:19→21:37)
[2022-11-04] MEDS: PIPERACILLIN-TAZOBACTAM 3.375 GM in SODIUM CHLORIDE 0.9% 100 ML IVPB SCH ×3 (03:19→18:47)
[2022-11-04 07:01] LABS: Glucose,Whole Blood 178 mg/dL (70-110)
[2022-11-04] MEDS: IPRATROPIUM-ALBUTEROL 3 ML NEB INHALATION SCH ×4 (07:38→21:03)
[2022-11-04] MEDS: PREGABALIN 75 MG CAP PO SCH ×2 (08:20→20:29)
[2022-11-04] MEDS: PANTOPRAZOLE 40 MG/10 ML VIAL IVP SCH (08:20)
[2022-11-04] MEDS: ASPIRIN 81 MG PO SCH (08:20)
[2022-11-04] MEDS: lisinopriL 10 MG TAB PO SCH (08:20)
[2022-11-04] MEDS: DOCUSATE 100 MG CAP PO SCH ×2 (08:20→20:29)
[2022-11-04] MEDS: SIMETHICONE 80 MG CHEWABLE PO SCH ×3 (08:21→20:30)
[2022-11-04] MEDS: ENOXAPARIN 40 MG/0.4 ML SYRINGE SQ SCH (08:21)
[2022-11-04] MEDS: MULTIVITAMINS, THERA 1 EACH TAB PO SCH (08:21)
[2022-11-04] MEDS: TICAGRELOR 90 MG TAB PO SCH ×2 (08:21→20:30)
--- NOTE | 2022-11-04 08:36 | P.PN ---
Subjective Progress Note Date: 11/03/22 She continues to endorse abdominal pain today, no nausea, vomiting, fever chills. Objective - Vital Signs Vital signs: Vital Signs Temp 98.7 F 11/04/22 06:58 Pulse 96 11/04/22 07:54 Resp 18 11/04/22 06:58 BP 151/77 11/04/22 06:58 Pulse Ox 94 L 11/04/22 07:39 FiO2 Intake & Output 11/03/22 11/04/22 11/04/22 18:59 06:59 18:59 Other: Voiding Method Toilet Diaper # Voids 2 3 - Exam Gen: obese female in NAD CV: RRR Lungs: CTAB Abd: soft, tender throughout - Labs CBC & Chem 7: 11/02/22 06:10 11/02/22 06:10 Labs: Abnormal Lab Results - Last 24 Hours (Table) 11/03/22 11/03/22 11/03/22 Range/Units 11:50 17:19 19:40 POC Glucose (mg/dL) 164 H 167 H 269 H (70-110) mg/dL 11/04/22 Range/Units 07:00 POC Glucose (mg/dL) 178 H (70-110) mg/dL Microbiology - Last 24 Hours (Table) 11/01/22 04:30 Blood Culture Gram Stain - Preliminary Blood Blood Culture - Preliminary Assessment and Plan Plan: Continue with supportive care. Follow cultures. Surgery following
--- NOTE | 2022-11-04 11:09 | P.PN ---
Subjective Progress Note Date: 11/04/22 This is a 52-year-old female patient who came back to the hospital because of increased shortness of breath. The patient was at home for few hours following her discharge and the patient felt short of breath. No reported chest pain. She was getting anxious. As such, she decided to come into the hospital again for further investigation. Noted the patient was found to have abnormal obstruction and the patient underwent a lysis of adhesions on 10/27/2022. She is obese and she has an extensive number of comorbid conditions. At this point in time, she is on 2 L of oxygen by nasal cannula. Blood work is essentially within normal limits. The pro-calcitonin level is at 0.06. BUN is at 6 with a creatinine of 0.4. The white cell cause of 8.8. CT antigram of the chest was done and it showed some atelectatic changes in the right lung base. Otherwise there is no evidence of new pulmonary embolism or pneumonia. No history of asthma. No emphysema. No septal aspiration. No previous history of DVT or pulmonary embolism. Doppler of the lower extremity was negative. The patient was given Lasix and the patient has significant amount of urine output and the patient is currently on Lasix 40 mg IV every 24 hours. The patient has superficial wound VAC. Surgical one-sided dry clean and intact. Bowel sounds are present. No abdominal distention. No nausea or emesis. No aspiration. The patient is seen today in 11/03/2022 in follow-up on the regular medical floor. She is currently sitting up in bed. Awake and alert in no acute distress. She is maintaining O2 saturations in the upper 90s on 2 L/m per nasal cannula. Today's chest x-ray shows no acute cardiopulmonary process. Revealing no growth. Blood glucose 132. She is on DuoNeb inhalations. Encouraged regarding the increased use of the incentive spirometer. Lovenox for DVT prophylaxis. The patient is seen today 11/04/2022 in follow-up on the regular medical floor. She is awake and alert in no acute distress. Maintaining good O2 saturations in the 90s on room air. Still stent with some surgical site discomfort. Her wound VAC was removed yesterday. Abdominal x-ray revealed nonspecific bowel gas pattern without radiographic evidence for acute process. Blood cultures revealed no growth. Blood glucose 178. Objective - Vital Signs Vital signs: Vital Signs Temp 98.7 F 11/04/22 06:58 Pulse 96 11/04/22 07:54 Resp 18 11/04/22 06:58 BP 151/77 11/04/22 06:58 Pulse Ox 94 L 11/04/22 07:39 FiO2 Intake & Output 11/03/22 11/04/22 11/04/22 18:59 06:59 18:59 Other: Voiding Method Toilet Diaper # Voids 2 3 - Exam GENERAL: A pleasant 52-year-old female patient, alert and oriented x3, not in any acute distress. Currently on room air Head exam was generally normal. There was no scleral icterus or corneal arcus. Mucous membranes were moist. HEENT: Pupils are round and equally reacting to light. EOMI. No scleral icterus. No conjunctival pallor. Normocephalic, atraumatic. No pharyngeal erythema. No thyromegaly. CARDIOVASCULAR: S1 and S2 present. No murmurs, rubs, or gallops. PULMONARY: Chest is clear to auscultation, no wheezing or crackles. ABDOMEN: Soft, nondistended, normoactive bowel sounds. No palpable organomegaly. Wound VAC removed. MUSCULOSKELETAL: No joint swelling or deformity. Examination of the extremities revealed easily palpable radial, femoral and pedal pulses. There was no cyanosis, clubbing or edema. NEUROLOGICAL: Gross neurological examination did not reveal any focal deficits. Examination of the skin revealed no evidence of significant rashes, suspicious appearing nevi or other concerning lesions. - Labs CBC & Chem 7: 11/02/22 06:10 11/02/22 06:10 Labs: Abnormal Lab Results - Last 24 Hours (Table) 11/03/22 11/03/22 11/03/22 Range/Units 11:50 17:19 19:40 POC Glucose (mg/dL) 164 H 167 H 269 H (70-110) mg/dL 11/04/22 Range/Units 07:00 POC Glucose (mg/dL) 178 H (70-110) mg/dL Microbiology - Last 24 Hours (Table) 11/01/22 04:30 Blood Culture Gram Stain - Preliminary Blood Blood Culture - Preliminary Assessment and Plan Assessment: Shortness of breath, exact etiology is not clear. The CT angiogram of the chest showed no evidence of any pulmonary embolism. Some postsurgical atelectatic change in the right lung base. No pneumonia. No aspiration. No obstructive lung disease. Breathing is comfortable. Possibility of a fluid overload as the patient improved with diuretics and she produced excellent urine output. Stable and on room air. Exploratory laparotomy with extensive lysis of adhesions for small loop bowel obstruction and malignant severe intestinal adhesion, surgery was done on 10/27/2022 for a small bowel obstruction and localized peritonitis in the right lower quadrant Incarcerated large abdominal wall hernia with small and large bowel incarceration Morbid obesity with a body mass index of 35 Diabetes mellitus type 2 Chronic pain syndrome Diabetic neuropathy. Hypertensive heart disease Peripheral vascular disease with previous estrogen refreshed in the right lower extremity Coronary artery disease Seizure disorder Claustrophobia. Motion sickness Hyperlipidemia Plan: The patient was seen and evaluated Labs and medications reviewed Encouraged increased use of the incentive spirometer Increase her activity as tolerated Stable and on room air Cleared for discharge from the pulmonary standpoint I have personally seen and examined the patient, performed the documentation and the assessment and plan as written. Number of minutes spent on the visit: 10.
[2022-11-04 11:42] LABS: Glucose,Whole Blood 165 mg/dL (70-110)
--- NOTE | 2022-11-04 12:10 | P.PN ---
Subjective Denies bowel movement, passing flatus. Abdominal chest x-ray reporting nonspecific bowel gas pattern without radiographic evidence for acute process. Wound vac removed yesterday. Denies nausea or vomiting. Denies fever or chills. Blood cultures reporting gram-positive bacilli. Zosyn initiated. Repeat blood cultures ordered .Maintaining O2 sats in the 90s on room air. Objective - Vital Signs Vital signs: Vital Signs Temp 98.7 F 11/04/22 06:58 Pulse 96 11/04/22 07:54 Resp 18 11/04/22 06:58 BP 151/77 11/04/22 06:58 Pulse Ox 94 L 11/04/22 07:39 FiO2 Intake & Output 11/03/22 11/04/22 11/04/22 18:59 06:59 18:59 Other: Voiding Method Toilet Diaper # Voids 2 3 - Exam Gen: obese female in NAD CV: RRR Lungs: CTAB Abd: soft, tender throughout - Labs CBC & Chem 7: 11/02/22 06:10 11/02/22 06:10 Labs: Abnormal Lab Results - Last 24 Hours (Table) 11/03/22 11/03/22 11/03/22 Range/Units 11:50 17:19 19:40 POC Glucose (mg/dL) 164 H 167 H 269 H (70-110) mg/dL 11/04/22 11/04/22 Range/Units 07:00 11:41 POC Glucose (mg/dL) 178 H 165 H (70-110) mg/dL Microbiology - Last 24 Hours (Table) 11/01/22 04:30 Blood Culture Gram Stain - Preliminary Blood Blood Culture - Preliminary Assessment and Plan Assessment: Shortness of breath, PE ruled out, no pneumonia as per pulmonary , possible fluid overload -improved with diuretics ,positive atelectasis postoperative. Recent exploratory laparotomy with extensive lysis of adhesions for small bowel obstruction and malignant severe intestinal adhesions secondary to large incarcerated abdominal wall hernia, recurrent with small and large bowel incarceration, on 10/27/2022 Acute hypoxic respiratory failure, atelectasis ,postoperative, expected outcome, secondary to the above, resolved. Diabetes mellitus type 2, hyperglycemia, hemoglobin A1c 11.5, further diabetic education outpatient in clinic with PCP Hypertension Hyperlipidemia History of seizure disorder Gastroesophageal reflux disease Former nicotine dependence Arthritis Morbid obesity, BMI 35 Plan: Continue on current medication regime ,monitoring and symptomatic treatment. Currently on IV antibiotics of Zosyn, further recommendations pending per ID;Repeat blood cultures, pro-calcitonin, CRP ordered. The impression and plan of care has been dictated as directed. : I performed a history and examination of this patient, discussed the same with the dictator. I agree with the dictator's note ,documented as a scribe. Any additional findings or plans will be noted.
[2022-11-04] MEDS: polyethylene glycoL 3350 17 GM POWD.PACK PO SCH (14:13)
--- NOTE | 2022-11-04 15:04 | P.PN ---
Subjective Progress Note Date: 11/04/22 CHIEF COMPLAINT: Shortness of breath HISTORY OF PRESENT ILLNESS: Patient reports improvement in her shortness of breath. She has right-sided abdominal pain. Her pain is worsened. She is having flatus. Does complain of constipation. Denies any nausea or vomiting. Afebrile. Medicine service is awaiting repeat blood cultures. Afebrile. PHYSICAL EXAM: VITAL SIGNS: Reviewed GENERAL: Well-developed in no acute distress. HEENT: No sclera icterus. Extraocular movements grossly intact. Moist buccal mucosa. Head is atraumatic, normocephalic. Hears conversational speech. No nasal drainage. NECK: Supple without lymphadenopathy. CHEST: Non-labored respirations and equal bilateral excursions. CARDIOVASCULAR: Palpable 2+ radial pulses. ABDOMEN: Soft. Nondistended. Right-sided tenderness with palpation. Incision site clean dry and intact. No evidence of infection. Darker discoloration noted at the distal part of the incision. MUSCULOSKELETAL: No clubbing or cyanosis. NEUROLOGIC: No focal or lateralizing signs. Cranial nerves II through XII grossly intact. PSYCH: Appropriate affect. Alert and oriented to person, place and time. SKIN: Well perfused. Good skin turgor. ASSESSMENT: 1. Shortness of breath improved 2. Status post lysis of adhesions for bowel obstruction, resolved 3. Constipation PLAN: -Continue Colace and add MiraLAX for constipation -Encouraged patient ambulate -Continue pain management -Abdominal x-ray with no evidence of obstruction -Patient is stable from surgical standpoint for discharge when medically cleared Physician Actuarial Intern note has been reviewed by physician. Signing provider agrees with the documented findings, assessment, and plan of care. Objective - Vital Signs Vital signs: Vital Signs Temp 98.5 F 11/04/22 11:43 Pulse 97 11/04/22 11:43 Resp 18 11/04/22 11:43 BP 122/77 11/04/22 11:43 Pulse Ox 94 L 11/04/22 11:43 FiO2 Intake & Output 11/03/22 11/04/22 11/04/22 18:59 06:59 18:59 Other: Voiding Method Toilet Diaper # Voids 2 3 2 - Labs CBC & Chem 7: 11/02/22 06:10 11/02/22 06:10 Labs: Abnormal Lab Results - Last 24 Hours (Table) 11/03/22 11/03/22 11/04/22 Range/Units 17:19 19:40 07:00 POC Glucose (mg/dL) 167 H 269 H 178 H (70-110) mg/dL C-Reactive Protein (<1.0) mg/dL 11/04/22 11/04/22 Range/Units 11:41 12:33 POC Glucose (mg/dL) 165 H (70-110) mg/dL C-Reactive Protein 3.5 H (<1.0) mg/dL Microbiology - Last 24 Hours (Table) 11/01/22 04:30 Blood Culture Gram Stain - Preliminary Blood Blood Culture - Preliminary
[2022-11-04 17:13] LABS: Glucose,Whole Blood 214 mg/dL (70-110)
[2022-11-04 20:19] LABS: Glucose,Whole Blood 186 mg/dL (70-110)
[2022-11-04] MEDS: ATORVASTATIN 40 MG TAB PO SCH (20:29)
[2022-11-04] MEDS: MELATONIN 5 MG TABLET PO SCH (20:30)
[2022-11-04] MEDS: INSULIN DETEMIR (LEVEMIR) 100 UNIT/ML SYR SQ SCH (20:30)
--- NOTE | 2022-11-04 22:14 | P.CONS ---
History of Present Illness - Reason for Consult Consult date: 11/04/22 - History of Present Illness Patient is a 52-year female recently admitted to the hospital with small bowel obstruction in this patient who is status post lysis of adhesion on 10/27/2022, patient was subsequently discharged home patient presented back to the hospital within 24 hours for increasing shortness of breath patient denies having any chest pain, no cough or sputum production on presentation to the hospital patient was afebrile and did have a low-grade fever of 99.2 on 11/02/2022, no fever since then patient did have mild hypoxia with no need for supplemental oxygen did have a normal white count kidney function normal procalcitonin was normal urine was mildly positive patient did have a CT angiogram of the chest was negative for PE did show some streak opacity and increased density in the dependent portion of the lung correlate for atelectasis or pneumonia patient did have blood cultures drawn which came back positive with gram-positive bacilli that has prompted this infectious disease consultation patient currently has been complaining of mostly abdominal pain describing it to be sharp 70 8 out of 10 and nauseated but no vomiting and no diarrhea Past Medical History Past Medical History: Diabetes Mellitus, GERD/Reflux, Hyperlipidemia, Hypertension, Osteoarthritis (OA), Seizure Disorder Additional Past Medical History / Comment(s): Hx bowel obstruction, kidney stones. migraines, last seizure 2013-due to cymbalta, varicose veins, rt lower leg edema, abdominal hernia History of Any Multi-Drug Resistant Organisms: None Reported, MRSA Year Discovered:: 2012 MDRO Source:: stomach mesh Past Surgical History: Back Surgery, Bladder Surgery, Section, Cholecystectomy, Hernia Repair, Hysterectomy, Orthopedic Surgery, Tonsillectomy Additional Past Surgical History / Comment(s): Ablation of lumbar nerve, COLONOSCOPY. stent rt leg, hernia repair with mesh(mesh later removed due to infection), arthroscopy left knee, abdomen scar tissue removal. Past Anesthesia/Blood Transfusion Reactions: Motion Sickness Additional Past Anesthesia/Blood Transfusion Reaction / Comm: Claustrophobia. Date of Last Stent Placement:: 01/04/2021 Past Psychological History: Anxiety, Panic Disorder Smoking Status: Former smoker Past Alcohol Use History: None Reported Past Drug Use History: None Reported - Past Family History Mother Family Medical History: Cancer Additional Family Medical History / Comment(s): Mother had breast cancer Father Family Medical History: Cancer Additional Family Medical History / Comment(s): Father at 42 yrs of age from agent orange exposure. Medications and Allergies Home Medications Medication Instructions Recorded Confirmed Type Omeprazole 20 mg PO HS #30 cap 03/20/21 11/01/22 Rx lisinopriL [Zestril] 10 mg PO DAILY #30 tab 03/20/21 11/01/22 Rx Atorvastatin [Lipitor] 40 mg PO HS 03/26/21 11/01/22 History Docusate [Colace] 100 mg PO BID cap 04/29/21 11/01/22 Rx Insulin Aspart [NovoLOG Flexpen] See Protocol SQ TID-W/MEALS PRN 04/29/21 11/01/22 Rx #10 ml Aspirin 81 mg PO DAILY 09/10/21 11/01/22 History Pregabalin [Lyrica] 75 mg PO BID 30 Days #60 cap 01/03/22 11/01/22 Rx Ticagrelor [Brilinta] 90 mg PO BID #60 tab 01/03/22 11/01/22 Rx Insulin Glargine,Hum.rec.anlog 26 unit SQ HS 04/22/22 11/01/22 History [Basaglar Kwikpen U-100] Loratadine [Claritin] 10 mg PO DAILY PRN 04/22/22 11/01/22 History Melatonin 5 mg PO HS 04/22/22 11/01/22 History Multivitamins, Thera [Multivitamin 1 tab PO DAILY 07/23/22 11/01/22 History (formulary)] Cholecalciferol [Vitamin D3 (25 25 mcg PO DAILY 08/20/22 11/01/22 History Mcg = 1000 Iu)] HYDROcodone/APAP 7.5-325MG [[place] 1 tab PO Q6HR PRN 30 Days #120 tab 10/01/22 11/01/22 Rx 7.5-325] Cyclobenzaprine [Flexeril] 5 mg PO TID PRN 30 Days #90 tab 10/08/22 11/01/22 Rx Morphine Sulfate ER [Ms Contin] 15 mg PO Q12HR 30 Days #60 tab 10/08/22 11/01/22 Rx Andrew/D3/Mag11/Zinc/Retort Operator/Roque/Bor 1 tab PO BID 10/24/22 11/01/22 History [Caltrate 600+D Plus Tablet] Furosemide [Lasix] 20 mg PO DAILY 10/24/22 11/01/22 History Potassium Chloride ER [K-Dur 10] 10 meq PO DAILY 10/24/22 11/01/22 History Acetaminophen Tab [Tylenol Tab] 1,000 mg PO Q6HR PRN #30 tablet 10/31/22 11/01/22 Rx Ibuprofen [Motrin] 600 mg PO Q8HR PRN #30 tab 10/31/22 11/01/22 Rx Allergies Allergy/AdvReac Type Severity Reaction Status Date / Time raspberry Allergy Severe throat Verified 08/13/22 11:08 swelling, buprenorphine [From Suboxone] Allergy Swelling Verified 08/13/22 11:08 duloxetine [From Cymbalta] Allergy Confusion/s Verified 08/13/22 11:08 eizures gabapentin Allergy Swelling Verified 08/13/22 11:08 naloxone [From Suboxone] Allergy Swelling Verified 08/13/22 11:08 NSAIDS (Non-Steroidal Allergy Unknown Verified 08/13/22 11:08 Anti-Inflamma Childhood Physical Exam Vitals: Vital Signs Temp Pulse Pulse Resp BP Pulse Ox 11/04/22 07:54 96 11/04/22 07:39 92 94 L 11/04/22 06:58 98.7 F 91 18 151/77 94 L 11/04/22 01:05 98.3 F 99 16 142/79 96 11/03/22 19:04 98.3 F 93 18 109/72 94 L 11/03/22 15:14 80 11/03/22 15:05 80 11/03/22 11:50 98.1 F 86 96 18 103/66 96 11/03/22 11:41 86 Intake and Output 11/03/22 11/04/22 11/04/22 22:59 06:59 14:59 Other: Voiding Method Toilet Diaper # Voids 2 3 Results CBC & Chem 7: 11/02/22 06:10 11/02/22 06:10 Labs: Abnormal Lab Results - Last 24 Hours (Table) 11/03/22 11/03/22 11/03/22 Range/Units 11:50 17:19 19:40 POC Glucose (mg/dL) 164 H 167 H 269 H (70-110) mg/dL 11/04/22 Range/Units 07:00 POC Glucose (mg/dL) 178 H (70-110) mg/dL Microbiology - Last 24 Hours (Table) 11/01/22 04:30 Blood Culture Gram Stain - Preliminary Blood Blood Culture - Preliminary Assessment and Plan Plan: 1patient with a positive blood culture with gram-positive bacilli likely representing contamination as the patient has no clinical disease to go along with it, patient did not have any fever or elevated white count did have negative CT angiogram of the chest and normal procalcitonin 2-blood cultures will be repeated document clearance check a CRP and a procalcitonin 3-May benefit from a CT of abdominal pelvis 4 continue with empiric Zosyn while waiting for the work-up to be completed We will follow on clinical condition and cultures to further adjust medication if needed Thank you for this consultation we will follow the patient along with you Dictation was produced using [employer] dictation software. please excuse any grammatical, word or spelling errors.- Time with Patient: Greater than 30
[2022-11-05] MEDS: PIPERACILLIN-TAZOBACTAM 3.375 GM in SODIUM CHLORIDE 0.9% 100 ML IVPB SCH ×3 (02:49→20:24)
[2022-11-05] MEDS: HYDROcodone/APAP 7.5-325MG 1 EACH TAB PO PRN ×3 (04:09→14:45)
[2022-11-05 07:16] LABS: Glucose,Whole Blood 125 mg/dL (70-110)
[2022-11-05] MEDS: IPRATROPIUM-ALBUTEROL 3 ML NEB INHALATION SCH ×4 (08:03→21:12)
[2022-11-05] MEDS: polyethylene glycoL 3350 17 GM POWD.PACK PO SCH (08:59)
[2022-11-05] MEDS: PANTOPRAZOLE 40 MG/10 ML VIAL IVP SCH (08:59)
[2022-11-05] MEDS: ENOXAPARIN 40 MG/0.4 ML SYRINGE SQ SCH (08:59)
[2022-11-05] MEDS: lisinopriL 10 MG TAB PO SCH (09:00)
[2022-11-05] MEDS: ASPIRIN 81 MG PO SCH (09:00)
[2022-11-05] MEDS: MULTIVITAMINS, THERA 1 EACH TAB PO SCH (09:00)
[2022-11-05] MEDS: PREGABALIN 75 MG CAP PO SCH ×2 (09:00→20:23)
[2022-11-05] MEDS: DOCUSATE 100 MG CAP PO SCH ×2 (09:00→20:23)
[2022-11-05] MEDS: TICAGRELOR 90 MG TAB PO SCH ×2 (09:00→20:23)
[2022-11-05] MEDS: SIMETHICONE 80 MG CHEWABLE PO SCH ×3 (09:00→20:23)
[2022-11-05 11:24] LABS: African American GFR (CKD) >90 (>60 ml/min/1.73 sqM); Anion Gap 9 mmol/L; Blood Urea Nitrogen 6 mg/dL (7-17); Calcium 8.6 mg/dL (8.4-10.2); Carbon Dioxide 22 mmol/L (22-30); Chloride 104 mmol/L (98-107); Glucose 143 mg/dL (74-99); Non-African American GFR(CKD) >90 (>60 ml/min/1.73 sqM); Potassium 3.8 mmol/L (3.5-5.1); Sodium 135 mmol/L (137-145)
--- NOTE | 2022-11-05 11:32 | P.PN ---
Subjective Progress Note Date: 11/05/22 Denies bowel movement, passing flatus. Abdominal chest x-ray reporting nonspecific bowel gas pattern without radiographic evidence for acute process. Wound vac removed yesterday. Denies nausea or vomiting. Denies fever or chills. Blood cultures reporting gram-positive bacilli. Zosyn initiated. Repeat blood cultures ordered .Maintaining O2 sats in the 90s on room air. 11/05/2022 maintained on empiric Zosyn, possible culture with gram-positive bacilli-suspecting contamination as per infectious disease, cultures finalizing. Repeat blood cultures in progress. CRP elevated at 3.5. Pro-calcitonin 0.06. Afebrile, labs pending. Tolerating heart healthy diet,consuming 75% of breakfast, denies nausea or vomiting. Reports positive flatus, no bowel movement. Blood sugars controlled. Diffuse abdominal pain unchanged with cramping, currently controlled. Denies chest pain, palpitations or shortness of breath.Maintaining O2 sats in the 90s on room air. Objective - Vital Signs Vital signs: Vital Signs Temp 98.3 F 11/05/22 07:17 Pulse 92 11/05/22 08:12 Resp 18 11/05/22 07:17 BP 135/84 11/05/22 07:17 Pulse Ox 94 L 11/05/22 07:17 FiO2 Intake & Output 11/04/22 11/05/22 11/05/22 18:59 06:59 18:59 Other: Voiding Method Toilet Diaper # Voids 2 1 - Exam Gen: obese female, sitting up in bed, NAD CV: RRR Lungs: CTAB Abd: soft, diffuse tenderness - Labs CBC & Chem 7: 11/02/22 06:10 11/02/22 06:10 Labs: Abnormal Lab Results - Last 24 Hours (Table) 11/04/22 11/04/22 11/04/22 Range/Units 11:41 12:33 17:11 POC Glucose (mg/dL) 165 H 214 H (70-110) mg/dL C-Reactive Protein 3.5 H (<1.0) mg/dL 11/04/22 11/05/22 Range/Units 20:07 07:15 POC Glucose (mg/dL) 186 H 125 H (70-110) mg/dL C-Reactive Protein (<1.0) mg/dL Assessment and Plan Assessment: Shortness of breath, PE ruled out, no pneumonia as per pulmonary , possible fluid overload -improved with diuretics ,positive atelectasis postoperative. Recent exploratory laparotomy with extensive lysis of adhesions for small bowel obstruction and malignant severe intestinal adhesions secondary to large incarcerated abdominal wall hernia, recurrent with small and large bowel incarceration, on 10/27/2022 Acute hypoxic respiratory failure, atelectasis ,postoperative, expected outcome, secondary to the above, resolved. Possible acute bacteremia, positive blood culture with gram-positive bacilli, suspect contamination, repeat blood cultures pending. Diabetes mellitus type 2, hyperglycemia, hemoglobin A1c 11.5, further diabetic education outpatient in clinic with PCP Hypertension Hyperlipidemia History of seizure disorder Gastroesophageal reflux disease Former nicotine dependence Arthritis Morbid obesity, BMI 35 Plan: Continue on current medication regime ,monitoring and symptomatic treatment. Maintaining empiric antibiotics as per ID.Repeat blood cultures in progress. Aggressive pulmonary toileting with incentive spirometer reinforced. The impression and plan of care has been dictated as directed. : I performed a history and examination of this patient, discussed the same with the dictator. I agree with the dictator's note ,documented as a scribe. Any additional findings or plans will be noted.
[2022-11-05 11:48] LABS: HCT 36.3 % (34.0-46.0); HGB 11.7 gm/dL (11.4-16.0); Hypochromasia Slight; MCH 26.9 pg (25.0-35.0); MCHC 32.4 g/dL (31.0-37.0); Mean Platelet Volume 8.8; Platelet Count 308 k/uL (150-450); RBC 4.37 m/uL (3.80-5.40); RDW 13.9 % (11.5-15.5); WBC 9.6 k/uL (3.8-10.6)
[2022-11-05 12:30] LABS: Glucose,Whole Blood 135 mg/dL (70-110)
--- NOTE | 2022-11-05 16:56 | P.PN ---
Subjective Progress Note Date: 11/05/22 CHIEF COMPLAINT: Shortness of breath HISTORY OF PRESENT ILLNESS: Patient reports improvement in her shortness of breath. She has right-sided abdominal pain. Her pain continues to improve each day. She is having flatus. No bowel movement yet. Patient tolerating diet. Afebrile. Medicine service is awaiting repeat blood cultures. Afebrile. PHYSICAL EXAM: VITAL SIGNS: Reviewed GENERAL: Well-developed in no acute distress. HEENT: No sclera icterus. Extraocular movements grossly intact. Moist buccal mucosa. Head is atraumatic, normocephalic. Hears conversational speech. No nasal drainage. NECK: Supple without lymphadenopathy. CHEST: Non-labored respirations and equal bilateral excursions. CARDIOVASCULAR: Palpable 2+ radial pulses. ABDOMEN: Soft. Nondistended. Right-sided tenderness with palpation. Incision site clean dry and intact. No evidence of infection. MUSCULOSKELETAL: No clubbing or cyanosis. NEUROLOGIC: No focal or lateralizing signs. Cranial nerves II through XII grossly intact. PSYCH: Appropriate affect. Alert and oriented to person, place and time. SKIN: Well perfused. Good skin turgor. ASSESSMENT: 1. Shortness of breath improved 2. Status post lysis of adhesions for bowel obstruction, resolved 3. Constipation PLAN: -Continue Colace and add MiraLAX for constipation -Continue regular diet -Encouraged patient ambulate -Continue pain management -Abdominal x-ray with no evidence of obstruction -Patient is stable from surgical standpoint for discharge when medically cleared Physician Data Examination Clerk note has been reviewed by physician. Signing provider agrees with the documented findings, assessment, and plan of care. Objective - Vital Signs Vital signs: Vital Signs Temp 98.4 F 11/05/22 12:21 Pulse 88 11/05/22 15:27 Resp 16 11/05/22 12:21 BP 114/66 11/05/22 12:21 Pulse Ox 96 11/05/22 12:21 FiO2 Intake & Output 11/04/22 11/05/22 11/05/22 18:59 06:59 18:59 Other: Voiding Method Toilet Diaper # Voids 2 1 - Labs CBC & Chem 7: 11/05/22 10:27 11/05/22 10:27 Labs: Abnormal Lab Results - Last 24 Hours (Table) 11/04/22 11/04/22 11/05/22 Range/Units 17:11 20:07 07:15 Sodium (137-145) mmol/L BUN (7-17) mg/dL Creatinine (0.52-1.04) mg/dL Glucose (74-99) mg/dL POC Glucose (mg/dL) 214 H 186 H 125 H (70-110) mg/dL 11/05/22 11/05/22 Range/Units 10:27 12:24 Sodium 135 L (137-145) mmol/L BUN 6 L (7-17) mg/dL Creatinine 0.37 L (0.52-1.04) mg/dL Glucose 143 H (74-99) mg/dL POC Glucose (mg/dL) 135 H (70-110) mg/dL Microbiology - Last 24 Hours (Table) 11/01/22 04:30 Blood Culture Gram Stain - Final Blood Blood Culture - Final Lactobacillus species
[2022-11-05 17:19] LABS: Glucose,Whole Blood 198 mg/dL (70-110)
[2022-11-05 20:10] LABS: Glucose,Whole Blood 276 mg/dL (70-110)
[2022-11-05] MEDS: INSULIN DETEMIR (LEVEMIR) 100 UNIT/ML SYR SQ SCH (20:22)
[2022-11-05] MEDS: MORPHINE SULFATE ER 15 MG TABLET PO SCH (20:23)
[2022-11-05] MEDS: MELATONIN 5 MG TABLET PO SCH (20:24)
[2022-11-05] MEDS: ATORVASTATIN 40 MG TAB PO SCH (20:24)
[2022-11-06] MEDS: HYDROcodone/APAP 7.5-325MG 1 EACH TAB PO PRN ×3 (01:27→15:35)
[2022-11-06] MEDS: PIPERACILLIN-TAZOBACTAM 3.375 GM in SODIUM CHLORIDE 0.9% 100 ML IVPB SCH ×3 (02:48→21:26)
[2022-11-06 07:20] LABS: Glucose,Whole Blood 138 mg/dL (70-110)
[2022-11-06] MEDS: IPRATROPIUM-ALBUTEROL 3 ML NEB INHALATION SCH ×4 (07:49→20:34)
[2022-11-06] MEDS ORDERED: LORATADINE 10 MG TAB PO PRN (08:22)
[2022-11-06] MEDS: MORPHINE SULFATE ER 15 MG TABLET PO SCH ×2 (08:48→21:26)
[2022-11-06] MEDS: PREGABALIN 75 MG CAP PO SCH ×2 (08:48→21:27)
[2022-11-06] MEDS: MULTIVITAMINS, THERA 1 EACH TAB PO SCH (08:50)
[2022-11-06] MEDS: DOCUSATE 100 MG CAP PO SCH ×2 (08:50→21:26)
[2022-11-06] MEDS: FUROSEMIDE 20 MG TAB PO SCH (08:51)
[2022-11-06] MEDS: ASPIRIN 81 MG PO SCH (08:51)
[2022-11-06] MEDS: lisinopriL 10 MG TAB PO SCH (08:51)
[2022-11-06] MEDS: TICAGRELOR 90 MG TAB PO SCH ×2 (08:51→21:27)
[2022-11-06] MEDS: POTASSIUM CHLORIDE ER 10 MEQ TAB.ER.PRT PO SCH (08:51)
[2022-11-06] MEDS: ENOXAPARIN 40 MG/0.4 ML SYRINGE SQ SCH (08:52)
[2022-11-06] MEDS: polyethylene glycoL 3350 17 GM POWD.PACK PO SCH (08:52)
[2022-11-06] MEDS: SIMETHICONE 80 MG CHEWABLE PO SCH ×3 (10:00→21:27)
[2022-11-06] MEDS: PANTOPRAZOLE 40 MG/10 ML VIAL IVP SCH (10:05)
--- NOTE | 2022-11-06 10:51 | P.PN ---
Subjective Progress Note Date: 11/06/22 CHIEF COMPLAINT: Shortness of breath HISTORY OF PRESENT ILLNESS: Patient sitting up at bedside chair. She is tolerating diet. She did have a bowel movement. She denies any nausea or vomiting. She does complain of right-sided abdominal pain but reports that each day it is getting better. Medicine service is awaiting the repeat blood culture results prior to discharge. Afebrile. WBC 9.6 PHYSICAL EXAM: VITAL SIGNS: Reviewed GENERAL: Well-developed in no acute distress. HEENT: No sclera icterus. Extraocular movements grossly intact. Moist buccal mucosa. Head is atraumatic, normocephalic. Hears conversational speech. No nasal drainage. NECK: Supple without lymphadenopathy. CHEST: Non-labored respirations and equal bilateral excursions. CARDIOVASCULAR: Palpable 2+ radial pulses. ABDOMEN: Soft. Nondistended. Right-sided tenderness with palpation. Incision site clean dry and intact. MUSCULOSKELETAL: No clubbing or cyanosis. NEUROLOGIC: No focal or lateralizing signs. Cranial nerves II through XII grossly intact. PSYCH: Appropriate affect. Alert and oriented to person, place and time. SKIN: Well perfused. Good skin turgor. ASSESSMENT: 1. Shortness of breath improved 2. Status post lysis of adhesions for bowel obstruction, resolved 3. Constipation PLAN: -Continue Colace and add MiraLAX for constipation -Continue regular diet -Encouraged patient ambulate -Continue pain management -Abdominal x-ray with no evidence of obstruction -Patient is stable from surgical standpoint for discharge when medically cleared Physician Hatch Tender note has been reviewed by physician. Signing provider agrees with the documented findings, assessment, and plan of care. Objective - Vital Signs Vital signs: Vital Signs Temp 98.2 F 11/06/22 07:18 Pulse 88 11/06/22 07:18 Resp 18 11/06/22 07:18 BP 141/77 11/06/22 07:18 Pulse Ox 94 L 11/06/22 07:18 FiO2 Intake & Output 11/05/22 11/06/22 11/06/22 18:59 06:59 18:59 Other: Voiding Method Toilet Toilet Diaper Diaper # Voids 3 1 # Bowel Movements 1 - Labs CBC & Chem 7: 11/05/22 10:27 11/05/22 10:27 Labs: Abnormal Lab Results - Last 24 Hours (Table) 11/05/22 11/05/22 11/05/22 Range/Units 10:27 12:24 17:18 Sodium 135 L (137-145) mmol/L BUN 6 L (7-17) mg/dL Creatinine 0.37 L (0.52-1.04) mg/dL Glucose 143 H (74-99) mg/dL POC Glucose (mg/dL) 135 H 198 H (70-110) mg/dL 11/05/22 11/06/22 Range/Units 20:08 07:18 Sodium (137-145) mmol/L BUN (7-17) mg/dL Creatinine (0.52-1.04) mg/dL Glucose (74-99) mg/dL POC Glucose (mg/dL) 276 H 138 H (70-110) mg/dL Microbiology - Last 24 Hours (Table) 11/04/22 12:40 Blood Culture - Preliminary Blood 11/01/22 04:30 Blood Culture Gram Stain - Final Blood Blood Culture - Final Lactobacillus species
--- NOTE | 2022-11-06 11:02 | P.DS ---
Providers Date of admission: 11/03/22 09:53 Expected date of discharge: 11/06/22 Attending physician: Jaison Brandon MD Consults: 11/01/22 05:12 Consult Physician Urgent Consulting Provider: Chacha Mckenna Consult Reason/Comments: post op pt Do you want consulting provider notified?: Already Contacted 11/01/22 18:11 Consult Physician Routine Consulting Provider: Mary Gonzalez Consult Reason/Comments: COPD exacerbation Do you want consulting provider notified?: Yes, Notify in am 11/04/22 02:56 Consult Physician Routine Consulting Provider: Ivett Sibley Consult Reason/Comments: Positive blood cultures Do you want consulting provider notified?: Yes, Notify in am Primary care physician: Henny Kramer Hospital Course: Final Diagnoses: Shortness of breath, PE ruled out, no pneumonia as per pulmonary , possible fluid overload -improved with diuretics ,positive atelectasis postoperative. Recent exploratory laparotomy with extensive lysis of adhesions for small bowel obstruction and malignant severe intestinal adhesions secondary to large incarcerated abdominal wall hernia, recurrent with small and large bowel incarceration, on 10/27/2022 Acute hypoxic respiratory failure, atelectasis ,postoperative, expected outcome, secondary to the above, resolved. Possible acute bacteremia, positive blood culture with gram-positive bacilli, suspect contamination, repeat blood cultures pending. Diabetes mellitus type 2, hyperglycemia, hemoglobin A1c 11.5, further diabetic education outpatient in clinic with PCP Hypertension Hyperlipidemia History of seizure disorder Gastroesophageal reflux disease Former nicotine dependence Arthritis Morbid obesity, BMI 35 Hospital course: Denies bowel movement, passing flatus. Abdominal chest x-ray reporting nonspec ific bowel gas pattern without radiographic evidence for acute process. Wound vac removed yesterday. Denies nausea or vomiting. Denies fever or chills. Blood cultures reporting gram-positive bacilli. Zosyn initiated. Repeat blood cultures ordered .Maintaining O2 sats in the 90s on room air. 11/05/2022 maintained on empiric Zosyn, possible culture with gram-positive bacilli-suspecting contamination as per infectious disease, cultures finalizing. Repeat blood cultures in progress. CRP elevated at 3.5. Pro-calcitonin 0.06. Afebrile, labs pending. Tolerating heart healthy diet,consuming 75% of breakfast, denies nausea or vomiting. Reports positive flatus, no bowel movement. Blood sugars controlled. Diffuse abdominal pain unchanged with cramping, currently controlled. Denies chest pain, palpitations or shortness of breath.Maintaining O2 sats in the 90s on room air. Significant clinical improvement. Tolerating diet with no nausea vomiting or diarrhea. No bowel movement. Fluctuating abdominal cramping improving. Afebrile. Initial blood cultures reported lactobacillus species, repeat preliminary blood cultures currently reporting no growth at 24 hours. Hemoglobin stable. Denies chest pain, palpitations or shortness of breath. Ambulating, tolerating exertion well. Denies lightheadedness, dizziness or focal deficits. Patient has been cleared for discharge and advised to continue on Colace and MiraLAX daily as per general surgery. Patient will be discharged home later today, in a stable condition with guarded prognosis, pending preliminary blood cultures remain negative at 48 hours, pending final DC recommendations and clearance per infectious disease. The impression and plan of care has been dictated as directed. : I performed a history and examination of this patient, discussed the same with the dictator. I agree with the dictator's note ,documented as a scribe. Any additional findings or plans will be noted. Patient Condition at Discharge: Stable Plan - Discharge Summary New Discharge Prescriptions: New Simethicone Chew [Mylicon Chew] 160 mg PO TID tab polyethylene glycoL 3350 [Miralax] 17 gm PO DAILY packet Continue Atorvastatin [Lipitor] 40 mg PO HS Docusate [Colace] 100 mg PO BID cap Insulin Aspart [NovoLOG Flexpen] See Protocol SQ TID-W/MEALS PRN #10 ml PRN Reason: Blood Sugar - High Aspirin 81 mg PO DAILY Ticagrelor [Brilinta] 90 mg PO BID #60 tab Pregabalin [Lyrica] 75 mg PO BID 30 Days #60 cap Melatonin 5 mg PO HS Multivitamins, Thera [Multivitamin (formulary)] 1 tab PO DAILY HYDROcodone/APAP 7.5-325MG [[place] 7.5-325] 1 tab PO Q6HR PRN 30 Days #120 tab PRN Reason: Pain Furosemide [Lasix] 20 mg PO DAILY Potassium Chloride ER [K-Dur 10] 10 meq PO DAILY Andrew/D3/Mag11/Zinc/Mattress Packer/Roque/Bor [Caltrate 600+D Plus Tablet] 1 tab PO BID Omeprazole 20 mg PO HS #30 cap lisinopriL [Zestril] 10 mg PO DAILY #30 tab Loratadine [Claritin] 10 mg PO DAILY PRN PRN Reason: Allergy Symptoms Insulin Glargine,Hum.rec.anlog [Basaglar Kwikpen U-100] 26 unit SQ HS Cholecalciferol [Vitamin D3 (25 Mcg = 1000 Iu)] 25 mcg PO DAILY Cyclobenzaprine [Flexeril] 5 mg PO TID PRN 30 Days #90 tab PRN Reason: Muscle Spasm Morphine Sulfate ER [Ms Contin] 15 mg PO Q12HR 30 Days #60 tab Ibuprofen [Motrin] 600 mg PO Q8HR PRN #30 tab PRN Reason: Pain Acetaminophen Tab [Tylenol] 1,000 mg PO Q6HR PRN #30 tablet PRN Reason: Pain Discharge Medication List Omeprazole 20 mg PO HS #30 cap 03/20/21 [Rx] lisinopriL [Zestril] 10 mg PO DAILY #30 tab 03/20/21 [Rx] Atorvastatin [Lipitor] 40 mg PO HS 03/26/21 [History] Docusate [Colace] 100 mg PO BID cap 04/29/21 [Rx] Insulin Aspart [NovoLOG Flexpen] See Protocol SQ TID-W/MEALS PRN #10 ml 04/29/21 [Rx] Aspirin 81 mg PO DAILY 09/10/21 [History] Pregabalin [Lyrica] 75 mg PO BID 30 Days #60 cap 01/03/22 [Rx] Ticagrelor [Brilinta] 90 mg PO BID #60 tab 01/03/22 [Rx] Insulin Glargine,Hum.rec.anlog [Basaglar Kwikpen U-100] 26 unit SQ HS 04/22/22 [History] Loratadine [Claritin] 10 mg PO DAILY PRN 04/22/22 [History] Melatonin 5 mg PO HS 04/22/22 [History] Multivitamins, Thera [Multivitamin (formulary)] 1 tab PO DAILY 07/23/22 [History] Cholecalciferol [Vitamin D3 (25 Mcg = 1000 Iu)] 25 mcg PO DAILY 08/20/22 [History] HYDROcodone/APAP 7.5-325MG [[place] 7.5-325] 1 tab PO Q6HR PRN 30 Days #120 tab 10/01/22 [Rx] Cyclobenzaprine [Flexeril] 5 mg PO TID PRN 30 Days #90 tab 10/08/22 [Rx] Morphine Sulfate ER [Ms Contin] 15 mg PO Q12HR 30 Days #60 tab 10/08/22 [Rx] Andrew/D3/Mag11/Zinc/Mattress Packer/Roque/Bor [Caltrate 600+D Plus Tablet] 1 tab PO BID 10/24/22 [History] Furosemide [Lasix] 20 mg PO DAILY 10/24/22 [History] Potassium Chloride ER [K-Dur 10] 10 meq PO DAILY 10/24/22 [History] Acetaminophen Tab [Tylenol] 1,000 mg PO Q6HR PRN #30 tablet 10/31/22 [Rx] Ibuprofen [Motrin] 600 mg PO Q8HR PRN #30 tab 10/31/22 [Rx] Simethicone Chew [Mylicon Chew] 160 mg PO TID tab 11/06/22 [Rx] polyethylene glycoL 3350 [Miralax] 17 gm PO DAILY packet 11/06/22 [Rx] Follow up Appointment(s)/Referral(s): Jaison Brandon MD [STAFF PHYSICIAN] - 11/12/22 11:45 am (in the [place] office on )
[2022-11-06 12:18] LABS: Glucose,Whole Blood 152 mg/dL (70-110)
[2022-11-06 17:27] LABS: Glucose,Whole Blood 180 mg/dL (70-110)
[2022-11-06 20:21] LABS: Glucose,Whole Blood 198 mg/dL (70-110)
[2022-11-06] MEDS: ATORVASTATIN 40 MG TAB PO SCH (21:26)
[2022-11-06] MEDS: MELATONIN 5 MG TABLET PO SCH (21:26)
[2022-11-06] MEDS: INSULIN DETEMIR (LEVEMIR) 100 UNIT/ML SYR SQ SCH (21:34)
--- NOTE | 2022-11-06 22:02 | P.PN ---
Subjective Progress Note Date: 11/05/22 Principal diagnosis: + Blood culture Patient is a 52-year female recently admitted to the hospital with small bowel obstruction in this patient who is status post lysis of adhesion on 10/27/2022, patient was subsequently discharged home patient presented back to the hospital within 24 hours for increasing shortness of breath,patient did have a CT angiogram of the chest was negative for PE did show some streak opacity and increased density in the dependent portion of the lung, patient did have positive blood culture with gram-positive bacilli prompted this infectious disease consultation. On today's evaluation that is 11/05/2022 the patient is afebrile patient is cu rrently breathing comfortably on room air patient denies having any chest pain some complaints of shortness of breath occasional cough and some abdominal discomfort nausea but no vomiting denies any bowel movement. Patient did have a white count of 9.6 creatinine 0.37 procalcitonin is normal at 0.06 blood culture repeat has been negative so far Objective - Vital Signs Vital signs: Vital Signs Temp 98.3 F 11/05/22 07:17 Pulse 92 11/05/22 08:12 Resp 18 11/05/22 07:17 BP 135/84 11/05/22 07:17 Pulse Ox 94 L 11/05/22 07:17 FiO2 Intake & Output 11/04/22 11/05/22 11/05/22 18:59 06:59 18:59 Other: Voiding Method Toilet Diaper # Voids 2 1 - Exam GENERAL DESCRIPTION: Middle-age female lying in bed in no distress RESPIRATORY SYSTEM: Unlabored breathing , decreased breath sounds at bases HEART: S1 S2 regular rate and rhythm ,no loud murmurs ABDOMEN: Soft , mild distention and tenderness EXTREMITIES: No edema feet - Labs CBC & Chem 7: 11/05/22 10:27 11/05/22 10:27 Labs: Abnormal Lab Results - Last 24 Hours (Table) 11/04/22 11/04/22 11/04/22 Range/Units 11:41 12:33 17:11 Sodium (137-145) mmol/L BUN (7-17) mg/dL Creatinine (0.52-1.04) mg/dL Glucose (74-99) mg/dL POC Glucose (mg/dL) 165 H 214 H (70-110) mg/dL C-Reactive Protein 3.5 H (<1.0) mg/dL 11/04/22 11/05/22 11/05/22 Range/Units 20:07 07:15 10:27 Sodium 135 L (137-145) mmol/L BUN 6 L (7-17) mg/dL Creatinine 0.37 L (0.52-1.04) mg/dL Glucose 143 H (74-99) mg/dL POC Glucose (mg/dL) 186 H 125 H (70-110) mg/dL C-Reactive Protein (<1.0) mg/dL Assessment and Plan (1) Bacteremia Current Visit: Yes Status: Acute Code(s): R78.81 - BACTEREMIA SNOMED Code(s): 4591338 Plan: 1patient with a positive blood culture with gram-positive bacilli likely representing contamination as the patient has no clinical disease to go along with it, patient did not have any fever or elevated white count did have negative CT angiogram of the chest and normal procalcitonin 2-blood cultures has been repeated and negatiev so far 3- Pt to continue with empiric Zosyn while waiting for the work-up to be completed Dictation was produced using [email or web address].comation software. please excuse any grammatical, word or spelling errors.- Time with Patient: Less than 30
--- NOTE | 2022-11-06 22:05 | P.PN ---
Subjective Progress Note Date: 11/06/22 Principal diagnosis: + Blood culture Patient is a 52-year female recently admitted to the hospital with small bowel obstruction in this patient who is status post lysis of adhesion on 10/27/2022, patient was subsequently discharged home patient presented back to the hospital within 24 hours for increasing shortness of breath,patient did have a CT angiogram of the chest was negative for PE did show some streak opacity and increased density in the dependent portion of the lung, patient did have positive blood culture with gram-positive bacilli prompted this infectious disease consultation. On today's evaluation that is 11/06/2022 patient remains to be afebrile, the patient is breathing comfortably currently on room air patient denies any chest pain occasional cough still complaining of some nausea but no vomiting and did have small bowel movement no urinary symptoms. Patient did have a normal white count of 9.6 creatinine 0.37 as of yesterday no blood work was done today initial blood culture with lactobacillus species blood culture repeat has been negative so far Objective - Vital Signs Vital signs: Vital Signs Temp 98.2 F 11/06/22 07:18 Pulse 88 11/06/22 07:18 Resp 18 11/06/22 07:18 BP 141/77 11/06/22 07:18 Pulse Ox 94 L 11/06/22 07:18 FiO2 Intake & Output 11/05/22 11/06/22 11/06/22 18:59 06:59 18:59 Other: Voiding Method Toilet Toilet Diaper Diaper # Voids 3 1 # Bowel Movements 1 - Exam GENERAL DESCRIPTION: Middle-age female lying in bed in no distress RESPIRATORY SYSTEM: Unlabored breathing , decreased breath sounds at bases HEART: S1 S2 regular rate and rhythm ,no loud murmurs ABDOMEN: Soft , mild distention and tenderness EXTREMITIES: No edema feet - Labs CBC & Chem 7: 11/05/22 10:27 11/05/22 10:27 Labs: Abnormal Lab Results - Last 24 Hours (Table) 11/05/22 11/05/22 11/06/22 Range/Units 17:18 20:08 07:18 POC Glucose (mg/dL) 198 H 276 H 138 H (70-110) mg/dL 11/06/22 Range/Units 12:16 POC Glucose (mg/dL) 152 H (70-110) mg/dL Microbiology - Last 24 Hours (Table) 11/04/22 12:40 Blood Culture - Preliminary Blood 11/01/22 04:30 Blood Culture Gram Stain - Final Blood Blood Culture - Final Lactobacillus species Assessment and Plan (1) Bacteremia Current Visit: Yes Status: Acute Code(s): R78.81 - BACTEREMIA SNOMED Code(s): 0607327 Plan: 1patient with a positive blood culture with gram-positive bacilli likely representing contamination as the patient has no clinical disease to go along with it, patient did not have any fever or elevated white count did have negative CT angiogram of the chest and normal procalcitonin 2-blood cultures has been repeated and negatiev so far 3-Patient is currently on empiric Zosyn as the patient has been cleared for discharge both by admitting and surgical team antibiotic can be safely discontinued Dictation was produced using [employer] dictation software. please excuse any grammatical, word or spelling errors.- Time with Patient: Less than 30
[2022-11-07] MEDS: HYDROcodone/APAP 7.5-325MG 1 EACH TAB PO PRN ×2 (00:13→08:35)
[2022-11-07 01:05] VITALS: RESP 16
[2022-11-07] MEDS: PIPERACILLIN-TAZOBACTAM 3.375 GM in SODIUM CHLORIDE 0.9% 100 ML IVPB SCH ×2 (04:47→12:10)
[2022-11-07 07:17] LABS: Glucose,Whole Blood 167 mg/dL (70-110)
[2022-11-07 08:04] VITALS: BP 145/78; PULSE 87; TEMP 98.6
[2022-11-07] MEDS: IPRATROPIUM-ALBUTEROL 3 ML NEB INHALATION SCH ×3 (08:18→15:07)
[2022-11-07 08:33] LABS: Basophils # (A) 0.07 X 10*3/uL (0.00-0.10); Basophils % (A) 0.8 %; Eosinophils # (A) 0.52 X 10*3/uL (0.04-0.35); Eosinophils % (A) 6.3 %; HCT 35.3 % (37.2-46.3); Lymphocytes % (A) 26.7 %; MCH 26.3 pg (27.0-32.0); MCHC 31.2 d/dL (32.0-37.0); MCV 84.2 FL (80.0-97.0); Mean Platelet Volume 11.1 FL (9.5-12.2); Monocytes # (A) 0.47 X 10*3/uL (0.20-1.00); Monocytes % (A) 5.7 %; NRBC Per 100 WBC 0 X 10*3/uL (0.00-0.01); Neutrophils # (A) 4.91 X 10*3/uL (1.80-7.70); Neutrophils % (A) 59.7 %; Platelet Count 366 X 10*3/uL (140-440); RBC 4.19 X 10*6/uL (4.10-5.20); RDW 14.4 % (11.5-14.5); WBC 8.24 X 10*3/uL (4.50-10.00)
[2022-11-07] MEDS: MORPHINE SULFATE ER 15 MG TABLET PO SCH (08:34)
[2022-11-07] MEDS: ENOXAPARIN 40 MG/0.4 ML SYRINGE SQ SCH (08:34)
[2022-11-07] MEDS: polyethylene glycoL 3350 17 GM POWD.PACK PO SCH (08:34)
[2022-11-07] MEDS: PANTOPRAZOLE 40 MG/10 ML VIAL IVP SCH (08:34)
[2022-11-07] MEDS: PREGABALIN 75 MG CAP PO SCH (08:35)
[2022-11-07] MEDS: DOCUSATE 100 MG CAP PO SCH (08:35)
[2022-11-07] MEDS: POTASSIUM CHLORIDE ER 10 MEQ TAB.ER.PRT PO SCH (08:35)
[2022-11-07] MEDS: MULTIVITAMINS, THERA 1 EACH TAB PO SCH (08:36)
[2022-11-07] MEDS: lisinopriL 10 MG TAB PO SCH (08:36)
[2022-11-07] MEDS: FUROSEMIDE 20 MG TAB PO SCH (08:36)
[2022-11-07] MEDS: TICAGRELOR 90 MG TAB PO SCH (08:36)
[2022-11-07] MEDS: ASPIRIN 81 MG PO SCH (08:36)
[2022-11-07] MEDS: SIMETHICONE 80 MG CHEWABLE PO SCH (08:37)
[2022-11-07 08:57] LABS: ALT 38 U/L (8-44); AST 26 U/L (13-35); Albumin 3.2 d/dL (3.8-4.9); Albumin/Globulin Ratio 1.39 Ratio (1.60-3.17); Alkaline Phosphatase 108 U/L (41-126); Blood Urea Nitrogen 8.1 mg/dL (9.0-27.0); Calcium 8.5 mg/dL (8.7-10.3); Carbon Dioxide 21.3 mmol/L (21.6-31.8); Chloride 106 mmol/L (96-109); Globulin 2.3 d/dL (1.6-3.3); Glucose 195 mg/dL (70-110); Potassium 3.8 mmol/L (3.5-5.5); Sodium 138 mmol/L (135-145); Total Bilirubin <0.2 mg/dL (0.3-1.2); Total Protein 5.5 d/dL (6.2-8.2)
[2022-11-07 12:29] LABS: Glucose,Whole Blood 143 mg/dL (70-110)
--- NOTE | 2022-11-07 12:31 | P.PN ---
Subjective Progress Note Date: 11/07/22 CHIEF COMPLAINT: Shortness of breath HISTORY OF PRESENT ILLNESS: Patient sitting up at bedside chair. She is tolerating diet. She did have a bowel movement yesterday. Having flatus. She denies any nausea or vomiting. Her abdominal pain continues to improve each day. Medicine service is awaiting the repeat blood culture results prior to discharge. Afebrile. WBC 9.6 PHYSICAL EXAM: VITAL SIGNS: Reviewed GENERAL: Well-developed in no acute distress. HEENT: No sclera icterus. Extraocular movements grossly intact. Moist buccal mucosa. Head is atraumatic, normocephalic. Hears conversational speech. No nasal drainage. NECK: Supple without lymphadenopathy. CHEST: Non-labored respirations and equal bilateral excursions. CARDIOVASCULAR: Palpable 2+ radial pulses. ABDOMEN: Soft. Nondistended. Right-sided tenderness with palpation. Incision site clean dry and intact. MUSCULOSKELETAL: No clubbing or cyanosis. NEUROLOGIC: No focal or lateralizing signs. Cranial nerves II through XII grossly intact. PSYCH: Appropriate affect. Alert and oriented to person, place and time. SKIN: Well perfused. Good skin turgor. ASSESSMENT: 1. Shortness of breath improved 2. Status post lysis of adhesions for bowel obstruction, resolved 3. Constipation improved PLAN: -Continue Colace and add MiraLAX for constipation -Continue regular diet -Encouraged patient ambulate -Continue pain management -Abdominal x-ray with no evidence of obstruction -Patient is stable from surgical standpoint for discharge when medically cleared Physician Taxonomy Teacher note has been reviewed by physician. Signing provider agrees with the documented findings, assessment, and plan of care. Objective - Vital Signs Vital signs: Vital Signs Temp 98.6 F 11/07/22 07:11 Pulse 87 11/07/22 07:11 Resp 16 11/07/22 07:11 BP 145/78 11/07/22 07:11 Pulse Ox 93 L 11/07/22 08:18 FiO2 Intake & Output 11/06/22 11/07/22 11/07/22 18:59 06:59 18:59 Intake Total 100 Balance 100 Intake: Intake, IV Titration 100 Amount Piperacillin-Tazobactam 3 100 .375 gm In Sodium Chloride 0.9% 100 ml @ 25 mls/hr IVPB Q8H [facility] Rx#: [id number] Other: Voiding Method Toilet Toilet Toilet Diaper Diaper Diaper # Voids 3 2 1 # Bowel Movements 3 - Labs CBC & Chem 7: 11/07/22 05:13 11/07/22 05:13 Labs: Abnormal Lab Results - Last 24 Hours (Table) 11/06/22 11/06/22 11/07/22 Range/Units 17:23 20:19 05:13 Hgb 11.0 L (12.0-15.0) d/dL Hct 35.3 L (37.2-46.3) % MCH 26.3 L (27.0-32.0) pg MCHC 31.2 L (32.0-37.0) d/dL Eosinophils # 0.52 H (0.04-0.35) X 10*3/uL Carbon Dioxide (21.6-31.8) mmol/L BUN (9.0-27.0) mg/dL Creatinine (0.6-1.5) mg/dL Glucose (70-110) mg/dL POC Glucose (mg/dL) 180 H 198 H (70-110) mg/dL Calcium (8.7-10.3) mg/dL Total Bilirubin (0.3-1.2) mg/dL C-Reactive Protein (0.00-0.80) mg/dL Total Protein (6.2-8.2) d/dL Albumin (3.8-4.9) d/dL Albumin/Globulin Ratio (1.60-3.17) Ratio 11/07/22 11/07/22 Range/Units 05:13 07:16 Hgb (12.0-15.0) d/dL Hct (37.2-46.3) % MCH (27.0-32.0) pg MCHC (32.0-37.0) d/dL Eosinophils # (0.04-0.35) X 10*3/uL Carbon Dioxide 21.3 L (21.6-31.8) mmol/L BUN 8.1 L (9.0-27.0) mg/dL Creatinine 0.5 L (0.6-1.5) mg/dL Glucose 195 H (70-110) mg/dL POC Glucose (mg/dL) 167 H (70-110) mg/dL Calcium 8.5 L (8.7-10.3) mg/dL Total Bilirubin <0.2 L (0.3-1.2) mg/dL C-Reactive Protein 2.00 H (0.00-0.80) mg/dL Total Protein 5.5 L (6.2-8.2) d/dL Albumin 3.2 L (3.8-4.9) d/dL Albumin/Globulin Ratio 1.39 L (1.60-3.17) Ratio Microbiology - Last 24 Hours (Table) 11/04/22 12:40 Blood Culture - Preliminary Blood
--- NOTE | 2022-11-07 12:48 | XR ---
EXAMINATION TYPE: XR chest 1V portable DATE OF EXAM: 11/07/2022 HISTORY: Shortness of breath. COMPARISON: 11/03/2022 TECHNIQUE: Single view of the chest is submitted. FINDINGS: Demonstrated are scattered senescent parenchymal change. Right basilar atelectasis with mild elevation right hemidiaphragm. The heart is stable. Hilar and mediastinal structures are within normal limits. Degenerative changes are seen of the dorsal spine. IMPRESSION: 1. Right basilar atelectasis with mild elevation right hemidiaphragm.
--- NOTE | 2022-11-10 15:36 | P.DS ---
Providers Date of admission: 11/03/22 09:53 Expected date of discharge: 11/07/22 Attending physician: Jaison Brandon MD Consults: 11/01/22 05:12 Consult Physician Urgent Consulting Provider: Chacha Mckenna Consult Reason/Comments: post op pt Do you want consulting provider notified?: Already Contacted 11/01/22 18:11 Consult Physician Routine Consulting Provider: Mary Gonzalez Consult Reason/Comments: COPD exacerbation Do you want consulting provider notified?: Yes, Notify in am 11/04/22 02:56 Consult Physician Routine Consulting Provider: Ivett Sibley Consult Reason/Comments: Positive blood cultures Do you want consulting provider notified?: Yes, Notify in am Primary care physician: Henny Kramer Hospital Course: Final Diagnoses: Shortness of breath, PE ruled out, no pneumonia as per pulmonary , likely secondary to atelectasis postoperative. Recent exploratory laparotomy with extensive lysis of adhesions for small bowel obstruction and malignant severe intestinal adhesions large incarcerated abdominal wall hernia, recurrent with small and large bowel incarceration, on 10/27/2022 Acute hypoxic respiratory failure, atelectasis ,postoperative, expected outcome, secondary to the above, resolved. acute bacteremia, positive blood culture with gram-positive bacilli, suspect contamination, repeat blood cultures pending. Bacteremia ruled out, likely contamination Diabetes mellitus type 2, hyperglycemia, hemoglobin A1c 11.5, further diabetic education outpatient in clinic with PCP Hypertension Hyperlipidemia History of seizure disorder Gastroesophageal reflux disease Former nicotine dependence Arthritis Morbid obesity, BMI 35 Discharge disposition Patient is being discharged home in stable condition with guarded prognosis. Patient will follow-up with Dr. Kramer in the outpatient setting along with surgery. Patient to continue on medications as prescribed below. Total time taken over 35 minutes. Hospital course: This is a 52-year-old female who was recently admitted with large incarcerated abdominal wall hernia status post expiratory laparotomy with extensive lysis of adhesions for small bowel obstruction and malignant severe intestinal adhesions. Patient has been cleared by consultations for discharge and was awaiting repeat cultures which are most likely contaminant and has been cleared by infectious disease requiring no antibiotics on discharge. Patient has been instructed to follow-up with primary care provider along with surgery in the outpatient setting on discharge. Please refer to other consultation notes for further HPI. Currently patient denies chest pain, shortness of breath, or palpitations. Patient is afebrile with no reported nausea or vomiting. Continues with abdominal tenderness although improved from previous. Patient is passing gas and having bowel movements. Patient will be discharged home today with guarded prognosis. Physical exam: Gen: This is a 52-year-old female who is awake, alert and oriented 3, well- developed, well-nourished, obese HEENT: Head is atraumatic, normocephalic. Pupils equal, round. Sclerae is anicteric. NECK: Supple. No JVD. No lymphadenopathy. No thyromegaly. LUNGS: Clear to auscultation. No wheezes or rhonchi. No intercostal retractions. HEART: Regular rate and rhythm. No murmur. ABDOMEN: Soft. Tender on palpation, obese. Bowel sounds are present. No masses. EXTREMITIES: No pedal edema. No calf tenderness. NEUROLOGICAL: Patient is awake, alert and oriented x3. Cranial nerves 2 through 12 are grossly intact. The impression and plan of care has been dictated by Gloria Appiah, Nurse Practitioner as directed. Dr. Wei MD I have performed a history and examination and MDM of this patient, discussed the same with the dictator, and agree with the dictator's assessment and plan as written ,documented as a scribe. Based on total visit time, I have performed more than 50% of the visit. Patient Condition at Discharge: Stable Plan - Discharge Summary New Discharge Prescriptions: New Simethicone Chew [Mylicon Chew] 160 mg PO TID tab polyethylene glycoL 3350 [Miralax] 17 gm PO DAILY packet Continue Atorvastatin [Lipitor] 40 mg PO HS Docusate [Colace] 100 mg PO BID cap Insulin Aspart [NovoLOG Flexpen] See Protocol SQ TID-W/MEALS PRN #10 ml PRN Reason: Blood Sugar - High Aspirin 81 mg PO DAILY Ticagrelor [Brilinta] 90 mg PO BID #60 tab Pregabalin [Lyrica] 75 mg PO BID 30 Days #60 cap Melatonin 5 mg PO HS Multivitamins, Thera [Multivitamin (formulary)] 1 tab PO DAILY HYDROcodone/APAP 7.5-325MG [[place] 7.5-325] 1 tab PO Q6HR PRN 30 Days #120 tab PRN Reason: Pain Furosemide [Lasix] 20 mg PO DAILY Potassium Chloride ER [K-Dur 10] 10 meq PO DAILY Andrew/D3/Mag11/Zinc/Hand Tube Bender/Roque/Bor [Caltrate 600+D Plus Tablet] 1 tab PO BID Omeprazole 20 mg PO HS #30 cap lisinopriL [Zestril] 10 mg PO DAILY #30 tab Loratadine [Claritin] 10 mg PO DAILY PRN PRN Reason: Allergy Symptoms Insulin Glargine,Hum.rec.anlog [Basaglar Kwikpen U-100] 26 unit SQ HS Cholecalciferol [Vitamin D3 (25 Mcg = 1000 Iu)] 25 mcg PO DAILY Cyclobenzaprine [Flexeril] 5 mg PO TID PRN 30 Days #90 tab PRN Reason: Muscle Spasm Morphine Sulfate ER [Ms Contin] 15 mg PO Q12HR 30 Days #60 tab Ibuprofen [Motrin] 600 mg PO Q8HR PRN #30 tab PRN Reason: Pain Acetaminophen Tab [Tylenol] 1,000 mg PO Q6HR PRN #30 tablet PRN Reason: Pain Discharge Medication List Omeprazole 20 mg PO HS #30 cap 03/20/21 [Rx] lisinopriL [Zestril] 10 mg PO DAILY #30 tab 03/20/21 [Rx] Atorvastatin [Lipitor] 40 mg PO HS 03/26/21 [History] Docusate [Colace] 100 mg PO BID cap 04/29/21 [Rx] Insulin Aspart [NovoLOG Flexpen] See Protocol SQ TID-W/MEALS PRN #10 ml 04/29/21 [Rx] Aspirin 81 mg PO DAILY 09/10/21 [History] Pregabalin [Lyrica] 75 mg PO BID 30 Days #60 cap 01/03/22 [Rx] Ticagrelor [Brilinta] 90 mg PO BID #60 tab 01/03/22 [Rx] Insulin Glargine,Hum.rec.anlog [Basaglar Kwikpen U-100] 26 unit SQ HS 04/22/22 [History] Loratadine [Claritin] 10 mg PO DAILY PRN 04/22/22 [History] Melatonin 5 mg PO HS 04/22/22 [History] Multivitamins, Thera [Multivitamin (formulary)] 1 tab PO DAILY 07/23/22 [History] Cholecalciferol [Vitamin D3 (25 Mcg = 1000 Iu)] 25 mcg PO DAILY 08/20/22 [History] HYDROcodone/APAP 7.5-325MG [[place] 7.5-325] 1 tab PO Q6HR PRN 30 Days #120 tab 10/01/22 [Rx] Cyclobenzaprine [Flexeril] 5 mg PO TID PRN 30 Days #90 tab 10/08/22 [Rx] Morphine Sulfate ER [Ms Contin] 15 mg PO Q12HR 30 Days #60 tab 10/08/22 [Rx] Andrew/D3/Mag11/Zinc/Hand Tube Bender/Roque/Bor [Caltrate 600+D Plus Tablet] 1 tab PO BID 10/24/22 [History] Furosemide [Lasix] 20 mg PO DAILY 10/24/22 [History] Potassium Chloride ER [K-Dur 10] 10 meq PO DAILY 10/24/22 [History] Acetaminophen Tab [Tylenol] 1,000 mg PO Q6HR PRN #30 tablet 10/31/22 [Rx] Ibuprofen [Motrin] 600 mg PO Q8HR PRN #30 tab 10/31/22 [Rx] Simethicone Chew [Mylicon Chew] 160 mg PO TID tab 11/06/22 [Rx] polyethylene glycoL 3350 [Miralax] 17 gm PO DAILY packet 11/06/22 [Rx] Follow up Appointment(s)/Referral(s): Jaison Brandon MD [STAFF PHYSICIAN] - 11/12/22 11:45 am (in the [place] office on ) Chacha Mckenna MD [STAFF PHYSICIAN] - 1 Week (please call to schedule a follow up appointment. [phone]) Patient Instructions/Handouts: ARDS (Acute Respiratory Distress Syndrome) (DC), Urinary Tract Infection in Women (DC), Pneumonia (DC) Activity/Diet/Wound Care/Special Instructions: Activity Limited until follow-up Follow-up with primary care provider and discharge Follow-up with surgery outpatient Continue current diet and slowly advance as tolerated Discharge Disposition: HOME SELF-CARE
== END 2022-11-07 15:57 | disposition home or self-care (01) | DRG 189 ==
LOC: EC 00:10 → UNDOADMIN 04:51 → 5NMEDONC 04:51 → OBSVTOIN 11-03 09:53
PROVIDERS: ADMIT Family Medicine; ATTEND Family Medicine
DX: J96.01 Acute respiratory failure with hypoxia (principal); I50.33 Acute on chronic diastolic (congestive) heart failure; E87.3 Alkalosis; K43.6 Other and unspecified ventral hernia with obstruction, without gangrene; R78.81 Bacteremia; E11.40 Type 2 diabetes mellitus with diabetic neuropathy, unspecified; E11.51 Type 2 diabetes mellitus with diabetic peripheral angiopathy without gangrene; E66.01 Morbid (severe) obesity due to excess calories; E78.00 Pure hypercholesterolemia, unspecified; F40.240 Claustrophobia; F41.0 Panic disorder [episodic paroxysmal anxiety]; G40.909 Epilepsy, unspecified, not intractable, without status epilepticus; G89.4 Chronic pain syndrome; I11.0 Hypertensive heart disease with heart failure; I25.10 Atherosclerotic heart disease of native coronary artery without angina pectoris; K21.9 Gastro-esophageal reflux disease without esophagitis; J44.9 Chronic obstructive pulmonary disease, unspecified; E11.65 Type 2 diabetes mellitus with hyperglycemia; M19.90 Unspecified osteoarthritis, unspecified site; T75.3XXA Motion sickness, initial encounter; Z68.35 Body mass index [BMI] 35.0-35.9, adult; Z79.02 Long term (current) use of antithrombotics/antiplatelets; Z79.4 Long term (current) use of insulin; Z79.82 Long term (current) use of aspirin; Z79.899 Other long term (current) drug therapy; Z80.3 Family history of malignant neoplasm of breast; Z86.14 Personal history of Methicillin resistant Staphylococcus aureus infection; Z87.442 Personal history of urinary calculi; Z90.710 Acquired absence of both cervix and uterus; Z87.891 Personal history of nicotine dependence; Z88.8 Allergy status to other drugs, medicaments and biological substances; Z88.1 Allergy status to other antibiotic agents
CPT/HCPCS: 36415; 36600; 71045; 71046; 71275; 74019; 80048; 80053; 81001; 82805; 83605; 83735; 83880; 84145; 84484; 85025; 85027; 85379; 85610; 85730; 86140; 87040; 93005; 93970; 94640; 94760; 96374; 96375; 99285

== ENCOUNTER → 2022-11-12 | Outpatient (CLI) | payer OTHER ==
[2022-11-12 13:50] VITALS: BP 136/80; PULSE 89; TEMP 98.8; BMI 35.5
--- NOTE | 2022-11-12 14:32 | P.BASOAP ---
Subjective Progress Note Date: 11/12/22 She has epidermolysis of the skin with moisture and yeast infection. She is not eating. Recommend 75 grams of protein daily and hydrogen peroxide. Follow up 1 week Objective - Vital Signs Vital signs: Vital Signs Temp 98.8 F 11/12/22 13:45 Pulse 89 11/12/22 13:45 Resp BP 136/80 11/12/22 13:45 Pulse Ox FiO2 Intake & Output 11/11/22 11/12/22 11/12/22 18:59 06:59 18:59 Weight 99.79 kg Assessment/Plan Plan: Date: 11/12/22 Initial Weight: Initial BMI: Current Weight: 99.79 kg Current BMI: 35.5 Type of Surgery: Total Volume in Band: Previous Volume: Volume Removed: Volume Added: Band Size:
== END ==
LOC: BARWHC3 13:35
PROVIDERS: ATTEND Surgery Plastic and Reconstructive Surgery
DX: Z53.9 Procedure and treatment not carried out, unspecified reason (principal)
CPT/HCPCS: 99211

== ENCOUNTER → 2022-11-19 | Outpatient (CLI) | payer OTHER ==
[2022-11-19 14:11] VITALS: BP 126/74; PULSE 96; TEMP 98.5; BMI 35.2
--- NOTE | 2022-11-19 15:34 | P.BASOAP ---
Subjective Progress Note Date: 11/19/22 Radha removed. No infection. Has weight loss. Sleeve advised. Conitnue medical supervised weight loss. Objective - Vital Signs Vital signs: Vital Signs Temp 98.5 F 11/19/22 14:09 Pulse 96 11/19/22 14:09 Resp BP 126/74 11/19/22 14:09 Pulse Ox FiO2 Intake & Output 11/18/22 11/19/22 11/19/22 18:59 06:59 18:59 Weight 98.883 kg Assessment/Plan Plan: Date: 11/19/22 Initial Weight: Initial BMI: Current Weight: 98.883 kg Current BMI: 35.2 Type of Surgery: Total Volume in Band: Previous Volume: Volume Removed: Volume Added: Band Size:
== END ==
LOC: BARWHC3 13:52
PROVIDERS: ATTEND Surgery Plastic and Reconstructive Surgery
DX: Z53.9 Procedure and treatment not carried out, unspecified reason (principal)
CPT/HCPCS: 99211

== ENCOUNTER → 2022-12-03 | Outpatient (CLI) | payer OTHER ==
[2022-12-03 12:31] VITALS: BP 133/82; PULSE 96; RESP 16
--- NOTE | 2022-12-03 13:22 | P.PAINPG ---
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 Pt underwent a lumbar RFA in Jun 2022 where she experienced 2 wks of pain relief. P ain level is provoked at 6/10 in intensity, constant, localized in the mid to lower lumbar spine, tingling in character w shooting towards the R glutes, R hip and RLE. Pain is provoked by walking/ standing for periods of 5 min or more. Pain is alleviated with medications, topicals, heat, ice, PT in 2012 but stopped due to intractable pain, use of a cane for ambulatory assistance, reclining, repositioning and rest. Interventional pain procedures completed include YESSENIA T7-8 x1, BL RFA L3-L5 (Jun 2022) Patient is currently on MS ER 15mg #60, [place] 7.5/325mg #120, Lyrica 75mg #60, Flexeril Patient denies any side effects of the medication(s), denies excessive drowsiness or sleepiness, denies suicidal ideation and reports that the current pain medication is helping to control the pain and improve activities of daily living. Patient denies any motor or sensory deficits. Patient denies any fever or night sweats, denies any change in the bowel movements or urination. Physical Examination: -Constitutional: Cooperative. Not in acute distress . - Neurologic: Cranial nerve II to XII intact. No focal neurological deficits. - Psychatric: Alert & oriented x 3. Matching mood & appropriate affect. Judgment and insight intact. - Musculoskeletal: Cervical spine: Muscle bulk/ tone/ strength in the bilateral upper extremities normal Vertebral body tenderness to palpation over Spurling test positive Distraction test positive Facet loading test positive TTP Thoracic spine Muscle bulk / tone/ strength in the bilateral paraspinal muscles normal Vertebral body tender to palpation over Facet loading test positive TTP Lumbar spine: Motor bulk/ tone/ strength lower extremities , thigh and legs : 5/5 Deep tendon reflexes : Normal Knee Jerk. Normal Ankle Jerk . Vertebral body tenderness to palpation over Lumbar Facet Loading Test positive TTP over BL L4-L5, L5-S1 facets Straight Leg Raise: positive at 30 degrees right side/ left side Gaenslen's Test positive Sacral spine : Severe tenderness over the Sacroiliac joint: right side / left side Range of motion: Flexion of the lumbar spine <60 degrees Range of motion: Extension of the lumbar spine <20 degrees Gaenslen's Test positive right side / left side Gato test: positive right side / left side Thigh Thrust Test positive right side / left side Sacral Thrust Test positive right side / left side Assessment and plan: Chronic LBP secondary to lumbar DDD, spondylosis with facet arthropathy without myelopathy Chronic and current use of high-risk medication (Opioids). The patient was counseled about risk of opioid use, psychological risk associated with opioids and was orally counseled to not overuse , divert or sell medications. Pt is to store medication in a safe location. The patient is counseled against driving while using narcotic medications and also not to use alcohol or any illicit recreational drugs. Patient verbalized understanding that the lack of compliance will result in failure to renew narcotic prescription(s) as well as possible discharge from the clinic Diagnoses, prognosis and treatment options including but not limited to physical therapy, surgical interventions, interventional therapies and medication management including narcotics and adjuvant medication were discussed. All patient questions answered MAPS reviewed and it was appropriate. UDS from 08/13/22 reviewed and consistent. Prescription refill for MS ER 15mg #60, [place] 7.5/325mg #120, Flexeril w 1 RF I have spent less than 30 minutes on patient care today. Dr Ashton was available by phone for the evaluation of this patient. The time was used to review the medical records including relevant urine studies and Prescription history (MAPs), review of the available imaging, evaluation and examination of the patient, coordination of care with the medical staff and if applicable referring physicians, as well as creation of the medical record PQRS Narrative: Smoking Status Current every day smoker Narcotic Agreement Date Signed 04/23/22 Hx Alcohol Use (MH) Yes: RARE Home Medications: Ambulatory Orders Omeprazole 20 mg PO HS #30 cap 03/20/21 lisinopriL [Zestril] 10 mg PO DAILY #30 tab 03/20/21 Atorvastatin [Lipitor] 40 mg PO HS 03/26/21 Docusate [Colace] 100 mg PO BID cap 04/29/21 Insulin Aspart [NovoLOG Flexpen] See Protocol SQ TID-W/MEALS PRN #10 ml 04/29/21 Aspirin 81 mg PO DAILY 06/14/22 Pregabalin [Lyrica] 75 mg PO BID 30 Days #60 cap 01/03/22 Ticagrelor [Brilinta] 90 mg PO BID #60 tab 01/03/22 Insulin Glargine,Hum.rec.anlog [Basaglar Kristineikpen U-100] 26 unit SQ HS 04/22/22 Loratadine [Claritin] 10 mg PO DAILY PRN 04/22/22 Melatonin 5 mg PO HS 04/22/22 Multivitamins, Thera [Multivitamin (formulary)] 1 tab PO DAILY 07/23/22 Cholecalciferol [Vitamin D3 (25 Mcg = 1000 Iu)] 25 mcg PO DAILY 08/20/22 Cyclobenzaprine [Flexeril] 5 mg PO TID PRN 30 Days #90 tab 10/08/22 Andrew/D3/Mag11/Zinc/Supervisor [employer] Trailer/Roque/Bor [Caltrate 600+D Plus Tablet] 1 tab PO BID 10/24/22 Furosemide [Lasix] 20 mg PO DAILY 10/24/22 Potassium Chloride ER [K-Dur 10] 10 meq PO DAILY 10/24/22 Acetaminophen Tab [Tylenol] 1,000 mg PO Q6HR PRN #30 tablet 10/31/22 Ibuprofen [Motrin] 600 mg PO Q8HR PRN #30 tab 10/31/22 Simethicone Chew [Mylicon Chew] 160 mg PO TID tab 11/06/22 polyethylene glycoL 3350 [Miralax] 17 gm PO DAILY packet 11/06/22 HYDROcodone/APAP 7.5-325MG [[place] 7.5-325] 1 tab PO Q6H PRN 30 Days #120 tab 12/03/22 HYDROcodone/APAP 7.5-325MG [[place] 7.5-325] 1 tab PO Q6HR PRN 30 Days #120 tab 12/03/22 Morphine Sulfate ER [Ms Contin] 15 mg PO Q12H 30 Days #60 tab 12/03/22 Morphine Sulfate ER [Ms Contin] 15 mg PO Q12HR 30 Days #60 tab 12/03/22 Controlled Substance Measures - Controlled Substance Measures Is patient prescribed a controlled substance at discharge?: Yes When asked, does pt state using other controlled substances?: Yes If prescribed controlled substance>3 days was MAPS reviewed?: Yes
== END ==
LOC: PNWHC3 10:59
PROVIDERS: ATTEND Specialist
DX: M51.37 Other intervertebral disc degeneration, lumbosacral region (principal); M47.817 Spondylosis without myelopathy or radiculopathy, lumbosacral region; G89.29 Other chronic pain; F17.200 Nicotine dependence, unspecified, uncomplicated; Z79.891 Long term (current) use of opiate analgesic; Z79.82 Long term (current) use of aspirin; Z91.018 Allergy to other foods; Z88.8 Allergy status to other drugs, medicaments and biological substances; Z88.6 Allergy status to analgesic agent; Z88.1 Allergy status to other antibiotic agents
CPT/HCPCS: 99211

== ENCOUNTER 2022-12-04 16:08 | Inpatient (IN) | payer MEDICARE, OTHER ==
[2022-12-04] MEDS ORDERED: SODIUM CHLORIDE 0.9% 1,000 ML IV STA (16:58)
[2022-12-04] MEDS ORDERED: HYDROmorphone 0.5 MG/0.5 ML SYRINGE IVP STA (16:58)
[2022-12-04 17:01] LABS: Basophils # (A) 0.1 k/uL (0-0.2); Basophils % (A) 1 %; Eosinophils # (A) 0.2 k/uL (0-0.7); Eosinophils % (A) 2 %; HCT 37.6 % (34.0-46.0); HGB 11.9 gm/dL (11.4-16.0); Hypochromasia Slight; Lymphocytes # (A) 2.2 k/uL (1.0-4.8); Lymphocytes % (A) 26 %; MCHC 31.6 g/dL (31.0-37.0); MCV 82.3 fL (80.0-100.0); Mean Platelet Volume 8.6; Monocytes # (A) 0.4 k/uL (0-1.0); Monocytes % (A) 4 %; Neutrophils # (A) 5.6 k/uL (1.3-7.7); Neutrophils % (A) 66 %; Platelet Count 349 k/uL (150-450); RBC 4.57 m/uL (3.80-5.40); RDW 13.7 % (11.5-15.5); WBC 8.4 k/uL (3.8-10.6)
[2022-12-04 17:22] LABS: ALT 22 U/L (4-34); AST 24 U/L (14-36); African American GFR (CKD) >90 (>60 ml/min/1.73 sqM); Albumin 4.1 g/dL (3.5-5.0); Alkaline Phosphatase 157 U/L (38-126); Anion Gap 12 mmol/L; Blood Urea Nitrogen 14 mg/dL (7-17); Calcium 9.7 mg/dL (8.4-10.2); Carbon Dioxide 24 mmol/L (22-30); Chloride 99 mmol/L (98-107); Glucose 336 mg/dL (74-99); Non-African American GFR(CKD) >90 (>60 ml/min/1.73 sqM); Potassium 4.2 mmol/L (3.5-5.1); Sodium 135 mmol/L (137-145); Total Bilirubin 0.5 mg/dL (0.2-1.3); Total Protein 7.6 g/dL (6.3-8.2)
[2022-12-04] MEDS ORDERED: PIPERACILLIN-TAZOBACTAM 3.375 GM in SODIUM CHLORIDE 0.9% 100 ML IVPB STA (18:17)
--- NOTE | 2022-12-04 19:50 | CT ---
EXAMINATION TYPE: CT abdomen pelvis w con CT DLP: 1825.1 mGycm, Automated exposure control for dose reduction was used. DATE OF EXAM: 12/04/2022 7:29 PM COMPARISON: CT abdomen pelvis most recent from 10/16/2022 CLINICAL INDICATION:Female, 52 years old with history of wound infection; non-healing wound to lower anterior abdomen TECHNIQUE: Axial CT of the abdomen and pelvis. Sagittal and coronal reformats were created on a [employer] workstation. Contrast used:100 mL of Isovue 370 with IV Contrast, (none if empty) Oral contrast used: without Oral Contrast (none if empty) FINDINGS: LOWER CHEST: Unremarkable ABDOMEN LIVER: Unremarkable GALLBLADDER AND BILE DUCTS: Cholecystectomy clips are present. PANCREAS: Unremarkable. SPLEEN: Unremarkable. ADRENAL GLANDS: Unremarkable. KIDNEYS AND URETERS: No evidence of hydronephrosis or renal calculus. The ureters are unremarkable. Simple appearing right renal cyst. PELVIS BLADDER: Unremarkable REPRODUCTIVE: The uterus is surgically absent. ABDOMEN & PELVIS STOMACH AND BOWEL: No evidence of bowel obstruction. PERITONEUM/RETROPERITONEUM: No evidence of pneumoperitoneum or free fluid. VASCULATURE: Mild atherosclerotic calcifications are present throughout the abdominal aorta and its b ranches. No evidence of aortic aneurysm. MUSCULOSKELETAL: No acute osseous abnormalities LYMPH NODES: No gross evidence for lymphadenopathy. SOFT TISSUE/ABDOMINAL WALL: There is a phlegmonous change and multiple foci of gas in the anterior david bcutaneous tissues with some layering fluid also present best appreciated on series 201 image 67. The re is enhancing fat stranding changes around this region. No evidence for anterior abdominal extensio n. IMPRESSION: 1. Phlegmonous change and gas within the anterior subcutaneous tissues with suspected layering fluid . Findings favor infectious/inflammatory process with underlying abscess felt to be likely. 2. No acute intra-abdominal process.
[2022-12-04] MEDS ORDERED: NALOXONE 0.4 MG/ML 1 ML VIAL IV PRN (20:25)
[2022-12-04] MEDS ORDERED: ONDANSETRON 4 MG/2 ML VIAL IVP PRN (21:15)
[2022-12-04] MEDS: SODIUM CHLORIDE 0.9% 1,000 ML IV SCH (21:19)
--- NOTE | 2022-12-04 22:09 | ED ---
General Adult HPI - General Chief complaint: Skin/Abscess/Foreign Body Stated complaint: infection at incision site Time Seen by Provider: 12/04/22 16:22 Source: patient Mode of arrival: ambulatory Limitations: no limitations - History of Present Illness Initial comments: Patient is a 52-year-old female who presents to the emergency department for wound infection. Patient had scar tissue removed from her abdomen lately September by Dr. Mckenna. States her macario were removed November 19. Over the past few days patient has noticed copious brown discharge from the lower portion of the incision with malodor. She reports mild abdominal pain in the region. Reports chills and no fever. No nausea or vomiting. Patient called Dr. Mckenna today recommended emergency Department evaluation. - Related Data Home Medications Medication Instructions Recorded Confirmed Atorvastatin [Lipitor] 40 mg PO DAILY@1600 03/26/21 12/04/22 Aspirin 81 mg PO DAILY@0830 09/10/21 12/04/22 Insulin Glargine,Hum.rec.anlog 26 unit SQ HS 04/22/22 12/04/22 [Basaglar Kwikpen U-100] Loratadine [Claritin] 10 mg PO DAILY PRN 04/22/22 12/04/22 Melatonin 5 mg PO HS PRN 04/22/22 12/04/22 Multivitamins, Thera [Multivitamin 1 tab PO DAILY@0830 07/23/22 12/04/22 (formulary)] Cholecalciferol [Vitamin D3 (25 25 mcg PO DAILY@30 08/20/22 12/04/22 Mcg = 1000 Iu)] Andrew/D3/Mag11/Zinc/Head Of Marketing/Roque/Bor 1 tab PO BID@0830,159910/24/22 12/04/22 [Caltrate 600+D Plus Tablet] Furosemide [Lasix] 20 mg PO DAILY@30 10/24/22 12/04/22 Potassium Chloride ER [K-Dur 10] 10 meq PO DAILY@30 10/24/22 12/04/22 Docusate [Colace] 100 mg PO BID@0830,1600 12/04/22 12/04/22 Omeprazole 20 mg PO DAILY@159912/04/22 12/04/22 Pregabalin [Lyrica] 75 mg PO BID@0830,159912/04/22 12/04/22 Ticagrelor [Brilinta] 90 mg PO BID@0830,1600 12/04/22 12/04/22 lisinopriL [Zestril] 10 mg PO DAILY@0830 12/04/22 12/04/22 polyethylene glycoL 3350 [Miralax] 17 gm PO DAILY@0830 12/04/22 12/04/22 Previous Rx's Medication Instructions Recorded Insulin Aspart [NovoLOG Flexpen] See Protocol SQ TID-W/MEALS PRN 04/29/21 #10 ml Cyclobenzaprine [Flexeril] 5 mg PO TID PRN 30 Days #90 tab 10/08/22 Acetaminophen Tab [Tylenol] 1,000 mg PO Q6HR PRN #30 tablet 10/31/22 Ibuprofen [Motrin] 600 mg PO Q8HR PRN #30 tab 10/31/22 HYDROcodone/APAP 7.5-325MG [[place] 1 tab PO Q6H PRN 30 Days #120 tab 12/03/22 7.5-325] Morphine Sulfate ER [Ms Contin] 15 mg PO Q12H 30 Days #60 tab 12/03/22 Allergies Allergy/AdvReac Type Severity Reaction Status Date / Time raspberry Allergy Severe throat Verified 12/04/22 18:30 swelling, buprenorphine [From Suboxone] Allergy Swelling Verified 12/04/22 18:30 duloxetine [From Cymbalta] Allergy Confusion/s Verified 12/04/22 18:30 eizures gabapentin Allergy Swelling Verified 12/04/22 18:30 naloxone [From Suboxone] Allergy Swelling Verified 12/04/22 18:30 NSAIDS (Non-Steroidal Allergy Unknown Verified 12/04/22 18:30 Anti-Inflamma Childhood Review of Systems ROS Statement: Those systems with pertinent positive or pertinent negative responses have been documented in the HPI. ROS Other: All systems not noted in ROS Statement are negative. Past Medical History Past Medical History: Diabetes Mellitus, GERD/Reflux, Hyperlipidemia, Hypertension, Osteoarthritis (OA), Seizure Disorder Additional Past Medical History / Comment(s): Hx bowel obstruction, kidney ston es. migraines, last seizure 2013-due to cymbalta, varicose veins, rt lower leg edema, abdominal hernia History of Any Multi-Drug Resistant Organisms: None Reported, MRSA Date of last positivie culture/infection: 2013 MDRO Source:: stomach mesh Past Surgical History: Back Surgery, Bladder Surgery, Section, Cholecystectomy, Hernia Repair, Hysterectomy, Orthopedic Surgery, Tonsillectomy Additional Past Surgical History / Comment(s): Ablation of lumbar nerve, COLONO SCOPY. stent rt leg, hernia repair with mesh(mesh later removed due to infection), arthroscopy left knee, abdomen scar tissue removal. lysis of adhesions. Past Anesthesia/Blood Transfusion Reactions: Motion Sickness Additional Past Anesthesia/Blood Transfusion Reaction / Comment(s): Claustrophobia. Date of Last Stent Placement:: 01/04/2021 Past Psychological History: Anxiety, Panic Disorder Smoking Status: Former smoker Past Alcohol Use History: None Reported Past Drug Use History: None Reported - Past Family History Mother Family Medical History: Cancer Additional Family Medical History / Comment(s): Mother had breast cancer Father Family Medical History: Cancer Additional Family Medical History / Comment(s): Father at 42 yrs of age from agent orange exposure. General Exam Limitations: no limitations General appearance: alert Respiratory exam: Present: normal lung sounds bilaterally. Absent: respiratory distress, wheezes, rales, rhonchi, stridor Cardiovascular Exam: Present: regular rate, normal rhythm, normal heart sounds. Absent: systolic murmur, diastolic murmur, rubs, gallop, clicks GI/Abdominal exam: Present: soft, tenderness (Lower abdomen), normal bowel sounds, other (lower portion of the incision dehissed with purulent malodorous drainage. no erythema. ). Absent: distended, guarding, rebound, rigid Psychiatric exam: Present: normal affect, normal mood Skin exam: Present: warm, dry, intact, normal color. Absent: rash Course Vital Signs 12/04/22 12/04/22 16:11 19:13 Temperature 97.8 F Pulse Rate 102 H 84 Respiratory 20 18 Rate Blood Pressure 146/89 134/67 O2 Sat by Pulse 98 98 Oximetry Medical Decision Making - Medical Decision Making Was pt. sent in by a medical professional or institution (, PA, [employer], urgent care, hospital, or snf...) When possible be specific @ -Dr. Mckenna today Did you speak to anyone other than the patient for history (EMS, parent, family, police, friend...)? What history was obtained from this source @ -No Did you review nursing and triage notes (agree or disagree)? Why? @ -I reviewed and agree with nursing and triage notes Were old charts reviewed (outside hosp., previous admission, EMS record, old EKG, old radiological studies, urgent care reports/EKG's, snf records)? Report findings @ -No old charts were reviewed Differential Diagnosis (chest pain, altered mental status, abdominal pain women, abdominal pain men, vaginal bleeding, weakness, fever, dyspnea, syncope, headache, dizziness, GI bleed, back pain, seizure, CVA, palpatations, mental health)? @ Differential Abdominal Pain Women: Appendicitis, Cholecystitis, diverticulosis, ischemic bowel, pancreatitis, hepatitis, UTI, gastroenteritis, AAA, incarcerated hernia, bowel obstruction, constipation, inflammatory bowel, hepatitis, peptic ulcer disease, splenic infarction, perforated viscus, vulvitis, ovarian torsion, PID, kidney stone, placenta abruption, incision infection this is not meant to be an all-inclusive list EKG interpreted by me (3pts min.). @ -As above X-rays interpreted by me (1pt min.). @ -None done CT interpreted by me (1pt min.). @ -Phlegmonous change in gas within the anterior subcutaneous tissues with suspected layering fluid. Findings favor infectious/inflammatory process with underlying abscess felt to be likely. No acute intra-abdominal process U/S interpreted by me (1pt. min.). @ -None done What testing was considered but not performed or refused? (CT, X-rays, U/S, labs)? Why? @ -None What meds were considered but not given or refused? Why? @ -None Did you discuss the management of the patient with other professionals (professionals i.e. , PA, [employer], lab, RT, psych nurse, social service technician, folder machine operator, teacher, operations officer afloat, case briefer)? Give summary @ Dr. Mckenna see hospital course Was smoking cessation discussed for >3mins.? @ -No Was critical care preformed (if so, how long)? @ -No Were there social determinants of health that impacted care today? How? (Homelessness, low income, unemployed, alcoholism, drug addiction, transportation, low edu. Level, literacy, decrease access to med. care, skilled nursing, rehab)? @ -No Was there de-escalation of care discussed even if they declined (Discuss DNR or withdrawal of care, Hospice)? DNR status @ -No What co-morbidities impacted this encounter? (DM, HTN, Smoking, COPD, CAD, Cancer, CVA, ARF, Chemo, Hep., AIDS, mental health diagnosis, sleep apnea, morbid obesity)? @ -None Was patient admitted / discharged? Hospital course, mention meds given and route, prescriptions, significant lab abnormalities, going to OR and other pertinent info. @ -Patient presenting with infected abdominal incision. Patient is nontoxic- appearing, afebrile. Blood cultures and wound cultures pending. IV zosyn initiated. No leukocytosis. No vomiting. CT interpreted by myself to show phlegmonous change with concern for abscess. Discussed case with Dr. Mckenna patient will be admitted for further evaluation and treatment. Undiagnosed new problem with uncertain prognosis? @ -No Drug Therapy requiring intensive monitoring for toxicity (Heparin, Nitro, Insulin, Cardizem)? @ -No Were any procedures done? @ -No Diagnosis/symptom? @ -Postop complication, wound infection after surgery Acute, or Chronic, or Acute on Chronic? @ -acute Uncomplicated (without systemic symptoms) or Complicated (systemic symptoms)? @ -uncomplicated Side effects of treatment? @ -No Exacerbation, Progression, or Severe Exacerbation? @ -No Poses a threat to life or bodily function? How? (Chest pain, USA, DC, pneumonia, PE, COPD, DKA, ARF, appy, cholecystitis, CVA, Diverticulitis, Homicidal, Suicidal, threat to staff... and all critical care pts) @ -No Dr. Wray is my attending - Lab Data Result diagrams: 12/04/22 16:23 12/04/22 16:23 Lab Results 12/04/22 12/04/22 12/04/22 Range/Units 16:23 16:23 17:04 WBC 8.4 (3.8-10.6) k/uL RBC 4.57 (3.80-5.40) m/uL Hgb 11.9 (11.4-16.0) gm/dL Hct 37.6 (34.0-46.0) % MCV 82.3 (80.0-100.0) fL MCH 26.0 (25.0-35.0) pg MCHC 31.6 (31.0-37.0) g/dL RDW 13.7 (11.5-15.5) % Plt Count 349 (150-450) k/uL MPV 8.6 Neutrophils % 66 % Lymphocytes % 26 % Monocytes % 4 % Eosinophils % 2 % Basophils % 1 % Neutrophils # 5.6 (1.3-7.7) k/uL Lymphocytes # 2.2 (1.0-4.8) k/uL Monocytes # 0.4 (0-1.0) k/uL Eosinophils # 0.2 (0-0.7) k/uL Basophils # 0.1 (0-0.2) k/uL Hypochromasia Slight Sodium 135 L (137-145) mmol/L Potassium 4.2 (3.5-5.1) mmol/L Chloride 99 (98-107) mmol/L Carbon Dioxide 24 (22-30) mmol/L Anion Gap 12 mmol/L BUN 14 (7-17) mg/dL Creatinine 0.43 L (0.52-1.04) mg/dL Est GFR (CKD-EPI)AfAm >90 (>60 ml/min/1.73 sqM) Est GFR (CKD-EPI)NonAf >90 (>60 ml/min/1.73 sqM) Glucose 336 H (74-99) mg/dL Plasma Lactic Acid Niels 1.4 (0.7-2.0) mmol/L Calcium 9.7 (8.4-10.2) mg/dL Total Bilirubin 0.5 (0.2-1.3) mg/dL AST 24 (14-36) U/L ALT 22 (4-34) U/L Alkaline Phosphatase 157 H (38-126) U/L Total Protein 7.6 (6.3-8.2) g/dL Albumin 4.1 (3.5-5.0) g/dL Disposition Clinical Impression: Postoperative complication, Wound infection after surgery Disposition: ADMITTED IP TO THIS HOSP Condition: Fair
[2022-12-05] MEDS: HYDROmorphone 0.5 MG/0.5 ML SYRINGE IVP PRN ×4 (01:55→09:54)
[2022-12-05] MEDS: SODIUM CHLORIDE 0.9% 1,000 ML IV SCH ×3 (01:56→20:15)
[2022-12-05 06:24] LABS: Glucose,Whole Blood 216 mg/dL (70-110)
[2022-12-05] MEDS: PIPERACILLIN-TAZOBACTAM 3.375 GM in SODIUM CHLORIDE 0.9% 100 ML IVPB SCH ×2 (09:03→16:54)
--- NOTE | 2022-12-05 10:52 | P.GSHP ---
History of Present Illness H&P Date: 12/05/22 CHIEF COMPLAINT: Incisional wound infection HISTORY OF PRESENT ILLNESS: This is a 52-year-old female with a history of small bowel obstruction and large incarcerated abdominal wall hernia with small and large bowel incarceration. Status post exploratory laparotomy with lysis of adhesions and incisional wound VAC on 10/27/22. Patient reports she had continued to have drainage from her incision site. Rosalind she noted that the drainage was worse and there was a foul odor. And pelvis that showed phlegmonous change and gas within the anterior subcutaneous tissue with suspected layering. Findings favor infectious/inflammatory process with underlying abscess felt to be likely. Patient started on antibiotics and is scheduled for debridement. PAST MEDICAL HISTORY: See list. PAST SURGICAL HISTORY: See list. MEDICATIONS: See list. ALLERGIES: See list. SOCIAL HISTORY: No illicit drug use. REVIEW OF SYSTEMS: CONSTITUTIONAL: Denies fever or chills. HEENT: Denies blurred vision, vision changes, or eye pain. Denies hemoptysis ENDOCRINE: Denies heat or cold intolerance. CARDIOVASCULAR: Denies chest pain or pressure. RESPIRATORY: No shortness of breath. GASTROINTESTINAL: Please refer to HPI NEURO: Denies history of seizures. PSYCH: No depression or suicidal ideation HEMATOLOGIC: Denies bleeding disorders. LYMPHATIC: The patient denies any lumps and bumps around the neck. GENITOURINARY: Denies any blood in urine or increased urinary frequency. MUSCULOSKELETAL: Denies myalgias. Denies joint swelling. Denies decreased range of motion beyond patients baseline. SKIN: Denies pruitis. Denies rash. PHYSICAL EXAM: VITAL SIGNS: Reviewed GENERAL: Well-developed in no acute distress. HEENT: No sclera icterus. Extraocular movements grossly intact. Moist buccal mucosa. Head is atraumatic, normocephalic. Hears conversational speech. No nasal drainage. NECK: Supple without lymphadenopathy. CHEST: Non-labored respirations and equal bilateral excursions. CARDIOVASCULAR: Palpable 2+ radial pulses. ABDOMEN: Soft. Nondistended. Lower abdominal incision with purulent drainage MUSCULOSKELETAL: No clubbing or cyanosis. NEUROLOGIC: No focal or lateralizing signs. Cranial nerves II through XII grossly intact. PSYCH: Appropriate affect. Alert and oriented to person, place and time. SKIN: Well perfused. Good skin turgor. LABORATORY DATA: WBC 8.4 Hgb 11.9 and platelets 349 Sodium 135 potassium 4.2 creatinine 0.43 Lactic acid 1.4 Glucose 216 IMAGING: As stated above ASSESSMENT: 1. Abdominal wound infection with possible abscess 2. Diabetes mellitus 3. Hypertension 4. History of peripheral vascular disease with stent and right leg on Brilenta PLAN: -Patient scheduled for debridement of abdominal wound with Dr. Mckenna -Hold Brilenta -Continue IV antibiotics -Okay for regular diet -Continue pain management -Continue supportive care Physician Compliance Examiner note has been reviewed by physician. Signing provider agrees with the documented findings, assessment, and plan of care. Past Medical History Past Medical History: Diabetes Mellitus, GERD/Reflux, Hyperlipidemia, Hypertension, Osteoarthritis (OA), Seizure Disorder Additional Past Medical History / Comment(s): Hx bowel obstruction, kidney stones. migraines, last seizure 2013-due to cymbalta, varicose veins, rt lower leg edema, abdominal hernia History of Any Multi-Drug Resistant Organisms: None Reported, MRSA Date of last positivie culture/infection: 2012 MDRO Source:: stomach mesh Past Surgical History: Back Surgery, Bladder Surgery, Section, Cholecystectomy, Hernia Repair, Hysterectomy, Orthopedic Surgery, Tonsillectomy Additional Past Surgical History / Comment(s): Ablation of lumbar nerve, COLONOSCOPY. stent rt leg, hernia repair with mesh(mesh later removed due to inf ection), arthroscopy left knee, abdomen scar tissue removal. lysis of adhesions. Past Anesthesia/Blood Transfusion Reactions: Motion Sickness Additional Past Anesthesia/Blood Transfusion Reaction / Comment(s): Claustrophobia. Date of Last Stent Placement:: 01/04/2021 Past Psychological History: Anxiety, Panic Disorder Additional Psychological History / Comment(s): claustrophobia, "anxiety before procedures" Smoking Status: Former smoker Past Alcohol Use History: None Reported Additional Past Alcohol Use History / Comment(s): Started smoking in 1985 and quit 01/2021. Past Drug Use History: None Reported - Past Family History Mother Family Medical History: Cancer Additional Family Medical History / Comment(s): Mother had breast cancer Father Family Medical History: Cancer Additional Family Medical History / Comment(s): Father at 42 yrs of age from agent orange exposure. Medications and Allergies Home Medications Medication Instructions Recorded Confirmed Type Atorvastatin [Lipitor] 40 mg PO DAILY@1600 03/26/21 12/04/22 History Insulin Aspart [NovoLOG Flexpen] See Protocol SQ TID-W/MEALS PRN 04/29/21 12/04/22 Rx #10 ml Aspirin 81 mg PO DAILY@82909/10/21 12/04/22 History Insulin Glargine,Hum.rec.anlog 26 unit SQ HS 04/22/22 12/04/22 History [Basaglar Kwikpen U-100] Loratadine [Claritin] 10 mg PO DAILY PRN 04/22/22 12/04/22 History Melatonin 5 mg PO HS PRN 04/22/22 12/04/22 History Multivitamins, Thera [Multivitamin 1 tab PO DAILY@82907/23/22 12/04/22 History (formulary)] Cholecalciferol [Vitamin D3 (25 25 mcg PO DAILY@82908/20/22 12/04/22 History Mcg = 1000 Iu)] Cyclobenzaprine [Flexeril] 5 mg PO TID PRN 30 Days #90 tab 10/08/22 12/04/22 Rx Andrew/D3/Mag11/Zinc/Facing Grinder/Roque/Bor 1 tab PO BID@0830,1600 10/24/22 12/04/22 History [Caltrate 600+D Plus Tablet] Furosemide [Lasix] 20 mg PO DAILY@82910/24/22 12/04/22 History Potassium Chloride ER [K-Dur 10] 10 meq PO DAILY@82910/24/22 12/04/22 History Acetaminophen Tab [Tylenol] 1,000 mg PO Q6HR PRN #30 tablet 10/31/22 12/04/22 Rx Ibuprofen [Motrin] 600 mg PO Q8HR PRN #30 tab 10/31/22 12/04/22 Rx HYDROcodone/APAP 7.5-325MG [[place] 1 tab PO Q6H PRN 30 Days #120 tab 12/03/22 12/04/22 Rx 7.5-325] Morphine Sulfate ER [Ms Contin] 15 mg PO Q12H 30 Days #60 tab 12/03/22 12/04/22 Rx Docusate [Colace] 100 mg PO BID@0830,1600 12/04/22 12/04/22 History Omeprazole 20 mg PO DAILY@159912/04/22 12/04/22 History Pregabalin [Lyrica] 75 mg PO BID@0830,1600 12/04/22 12/04/22 History Ticagrelor [Brilinta] 90 mg PO BID@0830,1600 12/04/22 12/04/22 History lisinopriL [Zestril] 10 mg PO DAILY@30 12/04/22 12/04/22 History polyethylene glycoL 3350 [Miralax] 17 gm PO DAILY@82912/04/22 12/04/22 History Allergies Allergy/AdvReac Type Severity Reaction Status Date / Time raspberry Allergy Severe throat Verified 12/04/22 18:30 swelling, buprenorphine [From Suboxone] Allergy Swelling Verified 12/04/22 18:30 duloxetine [From Cymbalta] Allergy Confusion/s Verified 12/04/22 18:30 eizures gabapentin Allergy Swelling Verified 12/04/22 18:30 naloxone [From Suboxone] Allergy Swelling Verified 12/04/22 18:30 NSAIDS (Non-Steroidal Allergy Unknown Verified 12/04/22 18:30 Anti-Inflamma Childhood Surgical - Exam Vital Signs Temp Pulse Resp BP Pulse Ox 97.8 F 102 H 20 146/89 98 12/04/22 16:11 12/04/22 16:11 12/04/22 16:11 12/04/22 16:11 12/04/22 16:11 Results - Labs 12/04/22 16:23 12/04/22 16:23 Abnormal Lab Results - Last 24 Hours (Table) 12/04/22 12/05/22 Range/Units 16:23 06:22 Sodium 135 L (137-145) mmol/L Creatinine 0.43 L (0.52-1.04) mg/dL Glucose 336 H (74-99) mg/dL POC Glucose (mg/dL) 216 H (70-110) mg/dL Alkaline Phosphatase 157 H (38-126) U/L Diabetes panel 12/04/22 Range/Units 16:23 Sodium 135 L (137-145) mmol/L Potassium 4.2 (3.5-5.1) mmol/L Chloride 99 (98-107) mmol/L Carbon Dioxide 24 (22-30) mmol/L BUN 14 (7-17) mg/dL Creatinine 0.43 L (0.52-1.04) mg/dL Glucose 336 H (74-99) mg/dL Calcium 9.7 (8.4-10.2) mg/dL AST 24 (14-36) U/L ALT 22 (4-34) U/L Alkaline Phosphatase 157 H (38-126) U/L Total Protein 7.6 (6.3-8.2) g/dL Albumin 4.1 (3.5-5.0) g/dL Calcium panel 12/04/22 Range/Units 16:23 Calcium 9.7 (8.4-10.2) mg/dL Albumin 4.1 (3.5-5.0) g/dL Pituitary panel 12/04/22 Range/Units 16:23 Sodium 135 L (137-145) mmol/L Potassium 4.2 (3.5-5.1) mmol/L Chloride 99 (98-107) mmol/L Carbon Dioxide 24 (22-30) mmol/L BUN 14 (7-17) mg/dL Creatinine 0.43 L (0.52-1.04) mg/dL Glucose 336 H (74-99) mg/dL Calcium 9.7 (8.4-10.2) mg/dL Adrenal panel 12/04/22 Range/Units 16:23 Sodium 135 L (137-145) mmol/L Potassium 4.2 (3.5-5.1) mmol/L Chloride 99 (98-107) mmol/L Carbon Dioxide 24 (22-30) mmol/L BUN 14 (7-17) mg/dL Creatinine 0.43 L (0.52-1.04) mg/dL Glucose 336 H (74-99) mg/dL Calcium 9.7 (8.4-10.2) mg/dL Total Bilirubin 0.5 (0.2-1.3) mg/dL AST 24 (14-36) U/L ALT 22 (4-34) U/L Alkaline Phosphatase 157 H (38-126) U/L Total Protein 7.6 (6.3-8.2) g/dL Albumin 4.1 (3.5-5.0) g/dL
[2022-12-05] MEDS ORDERED: DEXTROSE 50% SYRINGE 50 ML IVP PRN ×2 (11:08)
[2022-12-05 11:30] LABS: Glucose,Whole Blood 198 mg/dL (70-110)
[2022-12-05] MEDS: HYDROmorphone 1 MG/ML 1 ML SYRINGE IVP PRN ×4 (12:21→21:57)
[2022-12-05] MEDS: INSULIN ASPART (NovoLOG) 100 UNIT/ML VIAL SQ SCH ×3 (12:21→20:25)
[2022-12-05 17:02] LABS: Glucose,Whole Blood 171 mg/dL (70-110)
[2022-12-05 17:40] LABS: Glucose,Whole Blood 216 mg/dL (70-110)
[2022-12-05 19:56] LABS: Glucose,Whole Blood 229 mg/dL (70-110)
[2022-12-06] MEDS: PIPERACILLIN-TAZOBACTAM 3.375 GM in SODIUM CHLORIDE 0.9% 100 ML IVPB SCH ×4 (00:17→23:15)
[2022-12-06] MEDS: HYDROmorphone 1 MG/ML 1 ML SYRINGE IVP PRN ×7 (01:12→23:11)
[2022-12-06] MEDS: SODIUM CHLORIDE 0.9% 1,000 ML IV SCH ×3 (02:12→11:22)
[2022-12-06] MEDS ORDERED: ACETAMINOPHEN TAB 500 MG TAB PO PRN (03:10)
--- NOTE | 2022-12-06 03:20 | P.CONS ---
History of Present Illness - Reason for Consult Consult date: 12/05/22 Medical evaluation - Chief Complaint Surgical site infection - History of Present Illness 52-year-old female with diabetes mellitus hypertension Patient coming in for evaluation of a draining surgical wound. Patient had surgery done for a T-cell lysis and of September she followed up with surgery on November 18 to remove macario since then she has noticed some slowly worsening purulent drainage from the site of one of the macario that has opened up since then over the past few days became very malodorous with some pain and increased copious amount of purulent discharge. Denies any fevers or chills denies any nausea vomiting denies any skin changes denies any diarrhea or GI bleeding. In the ER CAT scan was done showed layering of fluids with possible gas in the subcutaneous tissue patient admitted for surgical evaluation review of systems Pertinent positives as noted in HPI. All other systems were reviewed and are negative on exam Constitutional: No acute distress, conversant, pleasant Eyes: Anicteric sclerae, moist conjunctiva, Pupils equal round reactive to light ENMT: NC/AT Oropharynx clear, no erythema, or exudates Neck: Supple, no masses, or JVD No carotid bruits No thyromegaly Lungs: Clear to auscultation Clear to percussion Normal respiratory effort, no accessory muscle use Cardiovascular: Heart regular in rate and rhythm, No murmurs, gallops, or rubs No peripheral edema Abdominal: Soft Nontender, no guarding, rebound or rigidity Abdomen moving with respiration Normoactive bowel sounds Surgical wound healing well except for one area or looks like there is slight wound dehiscence with copious amount of [place] malodorous discharge no erythema no induration Extremities: No digital cyanosis No clubbing Pedal pulses intact and symmetrical Radial pulses intact and symmetrical No calf tenderness Psychiatric: Alert and oriented to person, place and time Appropriate affect fair judgement Neuro Muscles Strength 5/5 in all 4 extremities Sensation to light touch grossly present throughout Cranial nerves II-XII grossly intact Lymphatics: no palpable cervical or supraclavicular lymph nodes Past Medical History Past Medical History: Diabetes Mellitus, GERD/Reflux, Hyperlipidemia, Hypertension, Osteoarthritis (OA), Seizure Disorder Additional Past Medical History / Comment(s): Hx bowel obstruction, kidney stones. migraines, last seizure 2013-due to cymbalta, varicose veins, rt lower leg edema, abdominal hernia History of Any Multi-Drug Resistant Organisms: None Reported, MRSA Year Discovered:: 2012 MDRO Source:: stomach mesh Past Surgical History: Back Surgery, Bladder Surgery, Section, Cholecystectomy, Hernia Repair, Hysterectomy, Orthopedic Surgery, Tonsillectomy Additional Past Surgical History / Comment(s): Ablation of lumbar nerve, COLONOSCOPY. stent rt leg, hernia repair with mesh(mesh later removed due to infection), arthroscopy left knee, abdomen scar tissue removal. lysis of adhesions. Past Anesthesia/Blood Transfusion Reactions: Motion Sickness Additional Past Anesthesia/Blood Transfusion Reaction / Comm: Claustrophobia. Date of Last Stent Placement:: 01/04/2021 Past Psychological History: Anxiety, Panic Disorder Additional Psychological History / Comment(s): claustrophobia, "anxiety before procedures" Smoking Status: Former smoker Past Alcohol Use History: None Reported Additional Past Alcohol Use History / Comment(s): Started smoking in 1985 and quit 01/2021. Past Drug Use History: None Reported - Past Family History Mother Family Medical History: Cancer Additional Family Medical History / Comment(s): Mother had breast cancer Father Family Medical History: Cancer Additional Family Medical History / Comment(s): Father at 42 yrs of age from agent orange exposure. Medications and Allergies Home Medications Medication Instructions Recorded Confirmed Type Atorvastatin [Lipitor] 40 mg PO DAILY@1600 03/26/21 12/04/22 History Insulin Aspart [NovoLOG Flexpen] See Protocol SQ TID-W/MEALS PRN 04/29/2110/19 Rx #10 ml Aspirin 81 mg PO DAILY@0830 09/10/21 12/04/22 History Insulin Glargine,Hum.rec.anlog 26 unit SQ HS 04/22/22 12/04/22 History [Basaglar Kwikpen U-100] Loratadine [Claritin] 10 mg PO DAILY PRN 04/22/22 12/04/22 History Melatonin 5 mg PO HS PRN 04/22/22 12/04/22 History Multivitamins, Thera [Multivitamin 1 tab PO DAILY@0830 07/23/22 12/04/22 History (formulary)] Cholecalciferol [Vitamin D3 (25 25 mcg PO DAILY@0830 08/20/22 12/04/22 History Mcg = 1000 Iu)] Cyclobenzaprine [Flexeril] 5 mg PO TID PRN 30 Days #90 tab 10/08/22 12/04/22 Rx Andrew/D3/Mag11/Zinc/Material Lister/Roque/Bor 1 tab PO BID@0830,1600 10/24/22 12/04/22 History [Caltrate 600+D Plus Tablet] Furosemide [Lasix] 20 mg PO DAILY@0830 10/24/22 12/04/22 History Potassium Chloride ER [K-Dur 10] 10 meq PO DAILY@30 10/24/22 12/04/22 History Acetaminophen Tab [Tylenol] 1,000 mg PO Q6HR PRN #30 tablet 10/31/22 12/04/22 Rx Ibuprofen [Motrin] 600 mg PO Q8HR PRN #30 tab 10/31/22 12/04/22 Rx HYDROcodone/APAP 7.5-325MG [[place] 1 tab PO Q6H PRN 30 Days #120 tab 12/03/22 12/04/22 Rx 7.5-325] Morphine Sulfate ER [Ms Contin] 15 mg PO Q12H 30 Days #60 tab 12/03/22 12/04/22 Rx Docusate [Colace] 100 mg PO BID@0830,1600 12/04/22 12/04/22 History Omeprazole 20 mg PO DAILY@1600 12/04/22 12/04/22 History Pregabalin [Lyrica] 75 mg PO BID@0830,1600 12/04/22 12/04/22 History Ticagrelor [Brilinta] 90 mg PO BID@0830,1600 12/04/22 12/04/22 History lisinopriL [Zestril] 10 mg PO DAILY@0830 12/04/22 12/04/22 History polyethylene glycoL 3350 [Miralax] 17 gm PO DAILY@0830 12/04/22 12/04/22 History Allergies Allergy/AdvReac Type Severity Reaction Status Date / Time raspberry Allergy Severe throat Verified 12/04/22 18:30 swelling, buprenorphine [From Suboxone] Allergy Swelling Verified 12/04/22 18:30 duloxetine [From Cymbalta] Allergy Confusion/s Verified 12/04/22 18:30 eizures gabapentin Allergy Swelling Verified 12/04/22 18:30 naloxone [From Suboxone] Allergy Swelling Verified 12/04/22 18:30 NSAIDS (Non-Steroidal Allergy Unknown Verified 12/04/22 18:30 Anti-Inflamma Childhood Physical Exam Vitals: Vital Signs Temp Pulse Resp BP Pulse Ox 12/06/22 01:49 98.6 F 89 15 143/75 95 12/05/22 19:01 98.5 F 90 16 133/71 95 12/05/22 14:00 97.9 F 95 16 146/83 94 L 12/05/22 07:01 98.5 F 92 18 155/74 94 L Intake and Output 12/05/22 12/05/22 12/06/22 14:59 22:59 06:59 Other: # Voids 2 Results CBC & Chem 7: 12/04/22 16:23 12/04/22 16:23 Labs: Abnormal Lab Results - Last 24 Hours (Table) 12/05/22 12/05/22 12/05/22 Range/Units 06:22 11:25 17:01 POC Glucose (mg/dL) 216 H 198 H 171 H (70-110) mg/dL 12/05/22 12/05/22 Range/Units 17:39 19:54 POC Glucose (mg/dL) 216 H 229 H (70-110) mg/dL Microbiology - Last 24 Hours (Table) 12/04/22 17:04 Wound Culture - Preliminary Abdomen Group D Enterococcus Assessment and Plan Assessment: Surgical wound infection Status post surgery for small bowel obstruction 10/27/2022 Computed tomography scan showed layering of fluids with possible abscess in gas changes this continues tissue Follow-up cultures Zosyn 3.5 g every 8 hours IV piggyback Treatment per primary surgical team Hypertension, controlled Resume lisinopril Diabetes mellitus Continue with insulin sliding scale Peripheral arterial disease status post intervention 2021 Continue with aspirin and statin and birlinta most recent echocardiogram showed left ventricular ejection fraction 5560 perce nt Patient overall stable from medical standpoint Blood work reviewed hemoglobin 11.9, white count 8.4 BUN 14 creatinine 0.4 Thank you for this consultation
[2022-12-06 06:07] LABS: Glucose,Whole Blood 203 mg/dL (70-110)
[2022-12-06] MEDS: INSULIN ASPART (NovoLOG) 100 UNIT/ML VIAL SQ SCH ×4 (06:39→20:05)
[2022-12-06] MEDS: lisinopriL 10 MG TAB PO SCH (07:58)
[2022-12-06] MEDS ORDERED: HYDROmorphone (PF) 1 MG/ML ONE (09:11)
[2022-12-06] MEDS ORDERED: LIDOCAINE 2% INJ 20 MG/ML (2 ML VIAL) ONE (09:11)
[2022-12-06] MEDS ORDERED: MIDAZOLAM 2 MG/2 ML VIAL ONE (09:11)
[2022-12-06] MEDS ORDERED: fentaNYL (PF) 50 MCG/ML 2 ML AMP ONE (09:11)
[2022-12-06] MEDS ORDERED: SUCCINYLCHOLINE CHLORIDE 200 MG/10 ML VIAL IV ONE (09:11)
[2022-12-06] MEDS ORDERED: PROPOFOL 10 MG/ML 20 ML VIAL IV ONE (09:11)
[2022-12-06] MEDS ORDERED: IV FLUID CONTINUATION 800 ML IV ONE (09:14)
[2022-12-06] MEDS: ASPIRIN 81 MG PO SCH ×2 (09:55→14:49)
[2022-12-06] MEDS: TICAGRELOR 90 MG TAB PO SCH ×2 (09:56→15:06)
[2022-12-06] MEDS ORDERED: MIDAZOLAM 2 MG/2 ML VIAL IVP ONE (10:02)
[2022-12-06 10:56] LABS: Glucose,Whole Blood 185 mg/dL (70-110)
[2022-12-06] MEDS ORDERED: HYDROmorphone 0.5 MG/0.5 ML SYRINGE IVP ONE (10:57)
--- NOTE | 2022-12-06 11:18 | P.OP ---
Date of Procedure: 12/06/22 Description of Procedure: SURGEON: ROD DUNBAR MD [employer] ARCHITECT: NONE. PREOPERATIVE DIAGNOSES: 1. Abdominal cellulitis with abscess per computed tomography scan 2. Morbid obesity due to excess calories, BMI 34.1 3. Status post recent exploratory laparotomy for bowel obstruction 4. Coronary artery disease 5. Chronic antiplatelet therapy 6. History of recurrent small bowel obstruction 7. History of recurrent abdominal wall hernia 8. Chronic pain syndrome 9. Diabetic neuropathy 10. Diabetes type 2, insulin-dependent 11. Hypertensive heart disease with congestive heart failure 12. Hyperlipidemia 13. Migraines 14. History of MRSA 15. Peripheral vascular occlusive disease 16. Status post stent, right lower extremity 17. Generalized anxiety disorder 18. Panic disorder 19. Claustrophobia POSTOPERATIVE DIAGNOSES: 1. Abdominal wall fascial necrosis 2. Morbid obesity due to excess calories, BMI 34.1 3. Status post recent exploratory laparotomy for bowel obstruction 4. Coronary artery disease 5. Chronic antiplatelet therapy 6. History of recurrent small bowel obstruction 7. History of recurrent abdominal wall hernia 8. Chronic pain syndrome 9. Diabetic neuropathy 10. Diabetes type 2, insulin-dependent 11. Hypertensive heart disease with congestive heart failure 12. Hyperlipidemia 13. Migraines 14. History of MRSA 15. Peripheral vascular occlusive disease 16. Status post stent, right lower extremity 17. Generalized anxiety disorder 18. Panic disorder 19. Claustrophobia OPERATION: 1. Sharp excisional debridement with scissors 15 x 6 x 5 cm anterior abdominal wall to the muscle and fascia 2. Water pulse lavage 3-L normal saline debridement of anterior abdominal wall 15 x 6 x 5 cm to muscle and fascia 3. Placement of quarter-inch Summer drain subcutaneous tissue, midline incision 4. Application of negative therapy pressure KCI wound VAC, small sponge, 15 x 6 x 5 cm midline ANESTHESIA: General ESTIMATED BLOOD LOSS: 50 mL. COMPLICATIONS: None. SPECIMENS: Multiple aerobic and anaerobic culture of abdominal wall obtained FINDINGS: 1. Abdominal wall necrosis involving the fascia with debridement, 15 x 6 x 5 cm 2. Foul odor from wound cultures obtained 3. Reinforcement of subcutaneous tissue with placement of abdominal wound VAC over subcutaneous tissue to decrease risk of fistula 4. Increased blood loss of abdominal wall due to recent antiplatelet therapy, Brilinta INDICATIONS: The patient is a 52-year-old female who 1 month ago presented with acute bowel obstruction with chronic abdominal wall hernia. She is status post extensive lysis of adhesions 10/27/2022. She had return to the hospital due to shortness of breath and treatment for possible pneumonia. She was recovering well however 3 days ago developed new foul-smelling drainage from her granulated midline incision. Diagnostic studies demonstrated abdominal wall abscess with cellulitis. Surgical intervention with debridement and application of wound VAC was described. Informed consent was obtained. DESCRIPTION: Patient was brought to the operating room. After general induction, the abdomen was prepped and draped in a standard sterile fashion. Ioban was placed over the skin. After time out, a midline incision along her prior cicatrix was made above the umbilicus. No active drainage was found. A small 8 mm pinhole drainage site was found inferior to the umbilicus and removed. The drain is site traveled deep into the subcutaneous tissue consistent with diagnostic imaging. Malodorous seropurulent drainage was obtained and the wound was reopened along her prior cicatrix of the upper midline. Anaerobic and aerobic cultures, mult iple were obtained. Fat necrosis including disintegration of the fascia was identified and debrided sharply using Metzenbaum scissor and 3 L normal saline Pulsavac. Increased bleeding was identified due to recent antiplatelet therapy. The subcutaneous tissue and floor of the wound was copiously irrigated. Final measurements of the wound is 15 cm length, 6 cm in width, 5 cm depth. The skin was cleansed. A medium-sized wound VAC sponge was cut to size. A petroleum gauze was also cut to size to prevent adherence of the black sponge to the skin. Mastisol was applied to the skin. Adhesive was placed over the wound VAC sponge which was placed into the depth of the wound. A suction adapter was placed and set to -125 mmHg pressure without leak in the system. She was awoken and taken to the postanesthesia care unit in stable condition.
[2022-12-06 12:06] LABS: Glucose,Whole Blood 192 mg/dL (70-110)
[2022-12-06] MEDS ORDERED: HYDROmorphone 1 MG/ML 1 ML SYRINGE IVP STA (14:33)
[2022-12-06] MEDS: PANTOPRAZOLE 40 MG TABLET PO SCH (15:06)
[2022-12-06] MEDS: ATORVASTATIN 40 MG TAB PO SCH (15:06)
--- NOTE | 2022-12-06 16:24 | P.PN ---
Progress Note - Text Progress Note Date: 12/06/22 Findings reviewed from surgery. She has severe panniculitis with skin breakdown. Ointment advised.
--- NOTE | 2022-12-06 17:01 | P.PN ---
Subjective Progress Note Date: 12/06/22 Hospital course: Patient is a very pleasant 52-year-old female with a past medical history of hypertension, hyperlipidemia, insulin-dependent diabetes mellitus,and peripheral vascular disease on Brilinta. She is currently admitted with abdominal wound infection status post exploratory or laparoscopic surgery with lysis of adhesions and wound VAC placement on 10/27/22. CT abdomen and pelvis with contrast was completed showing phlegmonous changes and gas within the anterior subcutaneous tissues with suspected layering fluid consistent with infectious/inflammatory process in concerns of underlying abscess. Patient is admitted under Gen. surgery team and we have been consulted for medical management throughout hospitalization. Physical exam: Patient seen and fully evaluated upon return from surgical procedure. Patient reports significant burning pain to area beneath abdominal pannus. Patient did have mild excoriation order placed for nystatin powder and discussed with gen eral surgeon. Vital signs reviewed and stable. General: Nontoxic, no distress and appears stated age. Derm: Skin warm and dry, normal coloration for ethnicity. Head: Atraumatic, normocephalic and symmetric. Eyes: EOMs intact, no lid lag, and anicteric sclera Mouth: no lip lesions, mucus membranes moist Cardiovascular: regular rate and rhythm with normal S1S2, no murmur, positive posterior tibial pulses bilaterally, and cap refill < 2 seconds. Lungs: Respirations even, regular, and unlabored on room air. Lungs CTA bilaterally, no rhonchi, no rales, no wheezing, and no accessory muscle usage. Abdominal: Abdominal dressing in place midabdomen. Patient reports significant burning pain to abdominal pannus. Ext: ROM intact. No gross muscle atrophy, no edema, no contractures Neuro: Speech clear, face symmetrical and CN II-XII grossly intact with no noted focal neuro deficits Psych: Alert and oriented to person, place, time, and situation. Appropriate and pleasant affect. Assessment and Plan of Care: Abdominal wound infection, abdominal wall cellulitis with abscess Status post I&D with washout and placement of [place] drain and wound VAC 12/06/22 Status post exploratory laparotomy with lysis of adhesions and placement of wound VAC on 10/27/22 -CT abdomen and pelvis with contrast was completed showing phlegmonous changes and gas within the anterior subcutaneous tissues with suspected layering fluid consistent with infectious/inflammatory process in concerns of underlying a bscess. -Patient admitted under Gen. surgery who took patient for I&D with washout and placement of Summer drain and wound VAC -Continue IV antibiotics with Zosyn 3.375 g every 8 hours. -Continue with symptomatic care and pain management. -Order placed for CBC, CMP, and magnesium. Will follow up on postoperative labs in place additional orders as needed based upon these findings. Peripheral vascular disease status post stenting -Continuation of Brilinta 90 mg twice daily In atorvastatin 40 mg daily. Insulin-dependent diabetes mellitus. -Patient to continue Levemir 26 units nightly and placed on glycemic protocol with NovoLog sliding scale. Hypertension Continue daily medication regimen with lisinopril 10 mg daily Hyperlipidemia Continue daily medication regimen with atorvastatin 40 mg daily. Data reviewed: -vital signs reviewed. Blood pressure 125/71, heart rate 88, respiratory rate 17, temp 98.0F, and SpO2 of 97% on 2 L O2 via nasal cannula. Thank you for allowing us to participate in the care of this pleasant patient. Do not hesitate to contact us with questions. Someone can be reached from the [facility] hospitalist group all hours of the day at [phone] or via perfect serve. Patient was seen independently by Nurse Pracitioner. This document was prepared using [employer] dictation software. Please allow for errors in auto machinist, while rare they do occur. Dante Greco NP rendered care for this patient independently, reviewed the findings and plan as documented in the note above. I did not physically speak with or examine the patient on this date. Objective - Vital Signs Vital signs: Vital Signs Temp 98.6 F 12/06/22 01:49 Pulse 89 12/06/22 01:49 Resp 15 12/06/22 01:49 BP 143/75 12/06/22 01:49 Pulse Ox 95 12/06/22 01:49 FiO2 Intake & Output 12/05/22 12/06/22 12/06/22 18:59 06:59 18:59 Other: # Voids 2 2 - Labs CBC & Chem 7: 12/09/22 07:00 12/09/22 07:00 Labs: Abnormal Lab Results - Last 24 Hours (Table) 12/05/22 12/05/22 12/05/22 Range/Units 11:25 17:01 17:39 POC Glucose (mg/dL) 198 H 171 H 216 H (70-110) mg/dL 12/05/22 12/06/22 Range/Units 19:54 06:04 POC Glucose (mg/dL) 229 H 203 H (70-110) mg/dL Microbiology - Last 24 Hours (Table) 12/04/22 17:00 Blood Culture - Preliminary Blood 12/04/22 16:43 Blood Culture - Preliminary Blood 12/04/22 17:04 Wound Culture - Preliminary Abdomen Group D Enterococcus
[2022-12-06 17:03] LABS: Glucose,Whole Blood 145 mg/dL (70-110)
[2022-12-06 19:44] LABS: Glucose,Whole Blood 157 mg/dL (70-110)
[2022-12-06] MEDS: INSULIN DETEMIR (LEVEMIR) 100 UNIT/ML SYR SQ SCH (21:34)
[2022-12-06] MEDS: NYSTATIN 100,000 UNIT/GM POWD 15 GM TOPICAL SCH (21:59)
--- NOTE | 2022-12-06 23:38 | P.CONS ---
History of Present Illness - Reason for Consult Consult date: 12/06/22 - History of Present Illness Patient is a 52-year-old female with a past medical history significant for small bowel obstruction secondary large incarcerated hernia with small bowel incarceration and this patient is status post expiratory laparotomy lysis of lesion and wound application on 10/27/2022 patient was subsequent discharged home now presenting back to the hospital with worsening drainage from her midline incision patient was also complaining of abdominal pain which is mostly dull aching to sharp 6-7 out of 10 no radiation mostly complaining of drainage which is mostly dark and some bloodstained but no estefani purulence patient on presentation to the hospital was afebrile and no fever has been repor aidee subsequently patient did have a normal white count creatinine was normal liver enzymes are normal patient did have a CT of abdominal pelvis phlegmon changes and gas within the anterior subcutaneous tissue with suspected layering fluid findings favor infectious/inflammatory process patient was subsequently taken to the OR this morning and this patient s/p excisional debridement of abdominal wall to the muscle and fascia drainage of the low-grade and application of the wound VAC abdominal cultures which are currently pending patient was started on Zosyn infectious was consulted for further management of antibiotic therapy no mention of any intra-abdominal abscess Past Medical History Past Medical History: Diabetes Mellitus, GERD/Reflux, Hyperlipidemia, Hypertension, Osteoarthritis (OA), Seizure Disorder Additional Past Medical History / Comment(s): Hx bowel obstruction, kidney stones. migraines, last seizure 2013-due to cymbalta, varicose veins, rt lower leg edema, abdominal hernia History of Any Multi-Drug Resistant Organisms: None Reported, MRSA Year Discovered:: 2012 MDRO Source:: stomach mesh Past Surgical History: Back Surgery, Bladder Surgery, Section, Cholecystectomy, Hernia Repair, Hysterectomy, Orthopedic Surgery, Tonsillectomy Additional Past Surgical History / Comment(s): Ablation of lumbar nerve, COLONOSCOPY. stent rt leg, hernia repair with mesh(mesh later removed due to infection), arthroscopy left knee, abdomen scar tissue removal. lysis of adhesions. Past Anesthesia/Blood Transfusion Reactions: Motion Sickness Additional Past Anesthesia/Blood Transfusion Reaction / Comm: Claustrophobia. Date of Last Stent Placement:: 01/04/2021 Past Psychological History: Anxiety, Panic Disorder Additional Psychological History / Comment(s): claustrophobia, "anxiety before procedures" Smoking Status: Former smoker Past Alcohol Use History: None Reported Additional Past Alcohol Use History / Comment(s): Started smoking in 1985 and quit 01/2021. Past Drug Use History: None Reported - Past Family History Mother Family Medical History: Cancer Additional Family Medical History / Comment(s): Mother had breast cancer Father Family Medical History: Cancer Additional Family Medical History / Comment(s): Father at 42 yrs of age from agent orange exposure. Medications and Allergies Home Medications Medication Instructions Recorded Confirmed Type Atorvastatin [Lipitor] 40 mg PO DAILY@159903/26/21 12/04/22 History Insulin Aspart [NovoLOG Flexpen] See Protocol SQ TID-W/MEALS PRN 04/29/21 12/04/22 Rx #10 ml Aspirin 81 mg PO DAILY@82909/10/21 12/04/22 History Insulin Glargine,Hum.rec.anlog 26 unit SQ HS 04/22/22 12/04/22 History [Basaglar Kwikpen U-100] Loratadine [Claritin] 10 mg PO DAILY PRN 04/22/22 12/04/22 History Melatonin 5 mg PO HS PRN 04/22/22 12/04/22 History Multivitamins, Thera [Multivitamin 1 tab PO DAILY@82907/23/22 12/04/22 History (formulary)] Cholecalciferol [Vitamin D3 (25 25 mcg PO DAILY@82908/20/22 12/04/22 History Mcg = 1000 Iu)] Cyclobenzaprine [Flexeril] 5 mg PO TID PRN 30 Days #90 tab 10/08/22 12/04/22 Rx Andrew/D3/Mag11/Zinc/Bundle Helper/Roque/Bor 1 tab PO BID@0830,1600 10/24/22 12/04/22 History [Caltrate 600+D Plus Tablet] Furosemide [Lasix] 20 mg PO DAILY@82910/24/22 12/04/22 History Potassium Chloride ER [K-Dur 10] 10 meq PO DAILY@82910/24/22 12/04/22 History Acetaminophen Tab [Tylenol] 1,000 mg PO Q6HR PRN #30 tablet 10/31/22 12/04/22 Rx Ibuprofen [Motrin] 600 mg PO Q8HR PRN #30 tab 10/31/22 12/04/22 Rx HYDROcodone/APAP 7.5-325MG [Terral 1 tab PO Q6H PRN 30 Days #120 tab 12/03/22 12/04/22 Rx 7.5-325] Morphine Sulfate ER [Ms Contin] 15 mg PO Q12H 30 Days #60 tab 12/03/22 12/04/22 Rx Docusate [Colace] 100 mg PO BID@0830,1600 12/04/22 12/04/22 History Omeprazole 20 mg PO DAILY@159912/04/22 12/04/22 History Pregabalin [Lyrica] 75 mg PO BID@0830,1600 12/04/22 12/04/22 History Ticagrelor [Brilinta] 90 mg PO BID@0830,159912/04/22 12/04/22 History lisinopriL [Zestril] 10 mg PO DAILY@82912/04/22 12/04/22 History polyethylene glycoL 3350 [Miralax] 17 gm PO DAILY@82912/04/22 12/04/22 History Allergies Allergy/AdvReac Type Severity Reaction Status Date / Time raspberry Allergy Severe throat Verified 12/04/22 18:30 swelling, buprenorphine [From Suboxone] Allergy Swelling Verified 12/04/22 18:30 duloxetine [From Cymbalta] Allergy Confusion/s Verified 12/04/22 18:30 eizures gabapentin Allergy Swelling Verified 12/04/22 18:30 naloxone [From Suboxone] Allergy Swelling Verified 12/04/22 18:30 NSAIDS (Non-Steroidal Allergy Unknown Verified 12/04/22 18:30 Anti-Inflamma Childhood Physical Exam Vitals: Vital Signs Temp Pulse Resp BP Pulse Ox 12/06/22 13:02 98 F 88 17 125/71 97 12/06/22 11:30 87 16 117/66 97 12/06/22 11:15 85 16 133/66 95 12/06/22 11:00 90 16 134/73 95 12/06/22 10:45 87 16 141/69 96 12/06/22 10:37 96.8 F L 95 16 144/71 95 12/06/22 07:35 98.1 F 88 17 153/82 95 12/06/22 01:49 98.6 F 89 15 143/75 95 12/05/22 19:01 98.5 F 90 16 133/71 95 Intake and Output 12/06/22 12/06/22 12/06/22 06:59 14:59 22:59 Intake Total 900 Output Total 50 Balance 850 Intake: IV 900 Output: Estimated Blood Loss 50 Other: # Voids 2 1 Results CBC & Chem 7: 12/04/22 16:23 12/04/22 16:23 Labs: Abnormal Lab Results - Last 24 Hours (Table) 12/05/22 12/05/22 12/05/22 Range/Units 17:01 17:39 19:54 POC Glucose (mg/dL) 171 H 216 H 229 H (70-110) mg/dL Hemoglobin A1c (<=6.0) % 12/06/22 12/06/22 12/06/22 Range/Units 06:04 07:15 10:54 POC Glucose (mg/dL) 203 H 185 H (70-110) mg/dL Hemoglobin A1c 10.3 H (<=6.0) % 12/06/22 Range/Units 12:04 POC Glucose (mg/dL) 192 H (70-110) mg/dL Hemoglobin A1c (<=6.0) % Microbiology - Last 24 Hours (Table) 12/04/22 17:00 Blood Culture - Preliminary Blood 12/04/22 16:43 Blood Culture - Preliminary Blood 12/04/22 17:04 Wound Culture - Preliminary Abdomen Group D Enterococcus Assessment and Plan Plan: 1patient with abdominal wall abscess in this patient with recent surgery for an incarcerated hernia s/p resection now presenting the hospital with worsening drainage and pain with abnormal CT s/p debridement and a drainage of the fluid which has been sent for the culture. 2we will continue patient on Zosyn 3.375 g every 8 hours while waiting for the culture to finalize. 3check inflammatory markers and cultures will be followed. Patient and has multiple questions were answered in layman term. We will follow on clinical condition and cultures to further adjust medication if needed Thank you for this consultation we will follow the patient along with you Dictation was produced using [employer] software. please excuse any grammatical, word or spelling errors. Time with Patient: Greater than 30
[2022-12-07] MEDS: HYDROmorphone 1 MG/ML 1 ML SYRINGE IVP PRN ×7 (02:09→23:14)
[2022-12-07 05:34] LABS: Glucose,Whole Blood 150 mg/dL (70-110)
[2022-12-07] MEDS: INSULIN ASPART (NovoLOG) 100 UNIT/ML VIAL SQ SCH ×4 (05:35→20:48)
[2022-12-07] MEDS: SODIUM CHLORIDE 0.9% 1,000 ML IV SCH ×3 (07:10→15:17)
[2022-12-07] MEDS: PIPERACILLIN-TAZOBACTAM 3.375 GM in SODIUM CHLORIDE 0.9% 100 ML IVPB SCH ×3 (07:22→23:14)
[2022-12-07] MEDS: TICAGRELOR 90 MG TAB PO SCH ×2 (07:23→15:17)
[2022-12-07] MEDS: PREGABALIN 75 MG CAP PO SCH ×2 (07:23→15:14)
[2022-12-07] MEDS: ASPIRIN 81 MG PO SCH (07:23)
[2022-12-07] MEDS: lisinopriL 10 MG TAB PO SCH (07:23)
[2022-12-07] MEDS: NYSTATIN 100,000 UNIT/GM POWD 15 GM TOPICAL SCH ×3 (07:23→20:49)
[2022-12-07 08:22] LABS: ALT 17 U/L (4-34); AST 17 U/L (14-36); African American GFR (CKD) >90 (>60 ml/min/1.73 sqM); Albumin 3.2 g/dL (3.5-5.0); Albumin/Globulin Ratio 1.1; Alkaline Phosphatase 119 U/L (38-126); Anion Gap 7 mmol/L; Blood Urea Nitrogen 5 mg/dL (7-17); Calcium 8.9 mg/dL (8.4-10.2); Carbon Dioxide 23 mmol/L (22-30); Chloride 106 mmol/L (98-107); Globulin 2.9 g/dL; Glucose 140 mg/dL (74-99); Magnesium 1.8 mg/dL (1.6-2.3); Non-African American GFR(CKD) >90 (>60 ml/min/1.73 sqM); Potassium 3.9 mmol/L (3.5-5.1); Sodium 136 mmol/L (137-145); Total Bilirubin 0.4 mg/dL (0.2-1.3); Total Protein 6.1 g/dL (6.3-8.2)
[2022-12-07 09:23] LABS: Basophils # (A) 0.04 X 10*3/uL (0.00-0.10); Basophils % (A) 0.5 %; Eosinophils # (A) 0.14 X 10*3/uL (0.04-0.35); Eosinophils % (A) 1.6 %; HCT 35.4 % (37.2-46.3); HGB 10.8 d/dL (12.0-15.0); Lymphocytes # (A) 1.72 X 10*3/uL (0.90-5.00); Lymphocytes % (A) 19.7 %; MCH 24.9 pg (27.0-32.0); MCHC 30.5 d/dL (32.0-37.0); MCV 81.8 FL (80.0-97.0); Mean Platelet Volume 11.1 FL (9.5-12.2); Monocytes # (A) 0.63 X 10*3/uL (0.20-1.00); Monocytes % (A) 7.2 %; NRBC Per 100 WBC 0 X 10*3/uL (0.00-0.01); Neutrophils % (A) 70.8 %; Platelet Count 327 X 10*3/uL (140-440); RBC 4.33 X 10*6/uL (4.10-5.20); RDW 13.2 % (11.5-14.5); WBC 8.75 X 10*3/uL (4.50-10.00)
[2022-12-07 11:06] LABS: Glucose,Whole Blood 150 mg/dL (70-110)
--- NOTE | 2022-12-07 13:08 | P.PN ---
Subjective Progress Note Date: 12/07/22 Pain has improved today. Output from wound VAC over 30-mL since placement serosanguinos Culture growing resistant bacteria Enterobacter. PLAN: 1. Social work for wound vac and IV antibiotic authorization 2. Home health care for wound vac management. 3. Continue hospitalization for complicated abdominal wall wound 15 x 6 x 5 cm Objective - Vital Signs Vital signs: Vital Signs Temp 98.5 F 12/07/22 07:21 Pulse 89 12/07/22 07:21 Resp 18 12/07/22 07:21 BP 153/81 12/07/22 07:21 Pulse Ox 98 12/07/22 07:21 FiO2 Intake & Output 12/06/22 12/07/22 12/07/22 18:59 06:59 18:59 Intake Total 900 Output Total 800 Balance 100 Intake: IV 900 Output: Urine 750 Estimated Blood Loss 50 Other: # Voids 2 3 1 - Labs CBC & Chem 7: 12/07/22 06:30 12/07/22 06:30 Labs: Abnormal Lab Results - Last 24 Hours (Table) 12/06/22 12/06/22 12/06/22 Range/Units 07:15 17:02 19:43 Hgb (12.0-15.0) d/dL Hct (37.2-46.3) % MCH (27.0-32.0) pg MCHC (32.0-37.0) d/dL Sodium (137-145) mmol/L BUN (7-17) mg/dL Creatinine (0.52-1.04) mg/dL Glucose (74-99) mg/dL POC Glucose (mg/dL) 145 H 157 H (70-110) mg/dL Hemoglobin A1c 10.3 H (<=6.0) % Total Protein (6.3-8.2) g/dL Albumin (3.5-5.0) g/dL 12/07/22 12/07/22 12/07/22 Range/Units 05:33 06:30 06:30 Hgb 10.8 L (12.0-15.0) d/dL Hct 35.4 L (37.2-46.3) % MCH 24.9 L (27.0-32.0) pg MCHC 30.5 L (32.0-37.0) d/dL Sodium 136 L (137-145) mmol/L BUN 5 L (7-17) mg/dL Creatinine 0.37 L (0.52-1.04) mg/dL Glucose 140 H (74-99) mg/dL POC Glucose (mg/dL) 150 H (70-110) mg/dL Hemoglobin A1c (<=6.0) % Total Protein 6.1 L (6.3-8.2) g/dL Albumin 3.2 L (3.5-5.0) g/dL 12/07/22 Range/Units 11:03 Hgb (12.0-15.0) d/dL Hct (37.2-46.3) % MCH (27.0-32.0) pg MCHC (32.0-37.0) d/dL Sodium (137-145) mmol/L BUN (7-17) mg/dL Creatinine (0.52-1.04) mg/dL Glucose (74-99) mg/dL POC Glucose (mg/dL) 150 H (70-110) mg/dL Hemoglobin A1c (<=6.0) % Total Protein (6.3-8.2) g/dL Albumin (3.5-5.0) g/dL Microbiology - Last 24 Hours (Table) 12/06/22 09:53 Gram Stain - Preliminary Abdomen 12/06/22 09:52 Gram Stain - Preliminary Abdomen 12/06/22 09:51 Gram Stain - Preliminary Abdomen 12/04/22 17:04 Gram Stain - Preliminary Abdomen Wound Culture - Preliminary Group D Enterococcus 12/04/22 17:00 Blood Culture - Preliminary Blood 12/04/22 16:43 Blood Culture - Preliminary Blood
[2022-12-07] MEDS: ATORVASTATIN 40 MG TAB PO SCH (15:14)
[2022-12-07] MEDS: PANTOPRAZOLE 40 MG TABLET PO SCH (15:14)
--- NOTE | 2022-12-07 16:27 | P.PN ---
Subjective Progress Note Date: 12/07/22 Hospital course: Patient is a very pleasant 52-year-old female with a past medical history of hypertension, hyperlipidemia, insulin-dependent diabetes mellitus,and peripheral vascular disease on Brilinta. She is currently admitted with abdominal wound infection status post exploratory or laparoscopic surgery with lysis of adhesions and wound VAC placement on 10/27/22. CT abdomen and pelvis with contrast was completed showing phlegmonous changes and gas within the anterior subcutaneous tissues with suspected layering fluid consistent with infectious/inflammatory process in concerns of underlying abscess. Patient is admitted under Gen. surgery team and we have been consulted for medical management throughout hospitalization. Physical exam: Patient seen and fully evaluated at bedside this morning. Patient reports burning previously reported to lower abdominal pannus has significantly improved after application of nystatin. Patient currently denies having any further need s or questions at this time. Wound VAC in place. Patient reports currently postoperative pain is managed, "as long as I don't move.". Patient educated on splinting with movement. Vital signs reviewed and stable. General: Nontoxic, no distress and appears stated age. Derm: Skin warm and dry, normal coloration for ethnicity. Head: Atraumatic, normocephalic and symmetric. Eyes: EOMs intact, no lid lag, and anicteric sclera Mouth: no lip lesions, mucus membranes moist Cardiovascular: regular rate and rhythm with normal S1S2, no murmur, positive posterior tibial pulses bilaterally, and cap refill < 2 seconds. Lungs: Respirations even, regular, and unlabored on room air. Lungs CTA bila terally, no rhonchi, no rales, no wheezing, and no accessory muscle usage. Abdominal: Abdominal dressing in place midabdomen with wound VAC. Mild excoriation beneath abdominal pannus Ext: ROM intact. No gross muscle atrophy, no edema, no contractures Neuro: Speech clear, face symmetrical and CN II-XII grossly intact with no noted focal neuro deficits Psych: Alert and oriented to person, place, time, and situation. Appropriate and pleasant affect. Assessment and Plan of Care: Abdominal wound infection, abdominal wall cellulitis with abscess Status post I&D with washout and placement of Summer drain and wound VAC 12/06/22 Status post exploratory laparotomy with lysis of adhesions and placement of wound VAC on 10/27/22 -CT abdomen and pelvis with contrast was completed showing phlegmonous changes and gas within the anterior subcutaneous tissues with suspected layering fluid consistent with infectious/inflammatory process in concerns of underlying abscess. -Patient admitted under Gen. surgery who took patient for I&D with washout and placement of [place] drain and wound VAC on 12/06/22 -Wound culture resulting positive for group D enterococcus, Continue IV antibiotics with Zosyn 3.375 g every 8 hours. -Continue with symptomatic care and pain management. Postoperative blood loss anemia, expected and stable finding -Preoperative hemoglobin 11.9 and postoperative hemoglobin stable at 10.8. No need for further intervention or transfusion at this time. Peripheral vascular disease status post stenting -Continuation of Brilinta 90 mg twice daily In atorvastatin 40 mg daily. Insulin-dependent diabetes mellitus. -Patient to continue Levemir 26 units nightly and placed on glycemic protocol with NovoLog sliding scale. Hypertension Continue daily medication regimen with lisinopril 10 mg daily Hyperlipidemia Continue daily medication regimen with atorvastatin 40 mg daily. Data reviewed: -Vital signs reviewed. Blood pressure 153/81, heart rate 89, respiratory rate 18, temp 98.5F, SpO2 of 90% on 2 L O2 via nasal cannula. -Labs reviewed. Wound culture preliminary results positive for group D enterococcus. CBC showing mild microchromic anemia with hemoglobin of 10.8. BMP unremarkable. Blood glucose 140 and magnesium of 1.8. Thank you for allowing us to participate in the care of this pleasant patient. Do not hesitate to contact us with questions. Someone can be reached from the [facility] hospitalist group all hours of the day at [phone] or via perfect serve. Patient was seen independently by Nurse Pracitioner. This document was prepared using [employer] dictation software. Please allow for errors in implementation project coordinator, while rare they do occur. Dante Greco NP rendered care for this patient independently, reviewed the findings and plan as documented in the note above. I did not physically speak with or examine the patient on this date. Objective - Vital Signs Vital signs: Vital Signs Temp 98.5 F 12/07/22 07:21 Pulse 89 12/07/22 07:21 Resp 18 12/07/22 07:21 BP 153/81 12/07/22 07:21 Pulse Ox 98 12/07/22 07:21 FiO2 Intake & Output 12/06/22 12/07/22 12/07/22 18:59 06:59 18:59 Intake Total 900 Output Total 800 Balance 100 Intake: IV 900 Output: Urine 750 Estimated Blood Loss 50 Other: # Voids 2 3 1 - Labs CBC & Chem 7: 12/09/22 07:00 12/09/22 07:00 Labs: Abnormal Lab Results - Last 24 Hours (Table) 12/06/22 12/06/22 12/06/22 Range/Units 07:15 10:54 12:04 Sodium (137-145) mmol/L BUN (7-17) mg/dL Creatinine (0.52-1.04) mg/dL Glucose (74-99) mg/dL POC Glucose (mg/dL) 185 H 192 H (70-110) mg/dL Hemoglobin A1c 10.3 H (<=6.0) % Total Protein (6.3-8.2) g/dL Albumin (3.5-5.0) g/dL 12/06/22 12/06/22 12/07/22 Range/Units 17:02 19:43 05:33 Sodium (137-145) mmol/L BUN (7-17) mg/dL Creatinine (0.52-1.04) mg/dL Glucose (74-99) mg/dL POC Glucose (mg/dL) 145 H 157 H 150 H (70-110) mg/dL Hemoglobin A1c (<=6.0) % Total Protein (6.3-8.2) g/dL Albumin (3.5-5.0) g/dL 12/07/22 Range/Units 06:30 Sodium 136 L (137-145) mmol/L BUN 5 L (7-17) mg/dL Creatinine 0.37 L (0.52-1.04) mg/dL Glucose 140 H (74-99) mg/dL POC Glucose (mg/dL) (70-110) mg/dL Hemoglobin A1c (<=6.0) % Total Protein 6.1 L (6.3-8.2) g/dL Albumin 3.2 L (3.5-5.0) g/dL Microbiology - Last 24 Hours (Table) 12/06/22 09:52 Gram Stain - Preliminary Abdomen 12/06/22 09:51 Gram Stain - Preliminary Abdomen 12/04/22 17:04 Gram Stain - Preliminary Abdomen Wound Culture - Preliminary Group D Enterococcus 12/04/22 17:00 Blood Culture - Preliminary Blood 12/04/22 16:43 Blood Culture - Preliminary Blood
[2022-12-07 16:40] LABS: Glucose,Whole Blood 218 mg/dL (70-110)
--- NOTE | 2022-12-07 17:57 | P.PN ---
Subjective Progress Note Date: 12/07/22 Principal diagnosis: Abdominal wound infection Patient is a 52-year-old female with a past medical history significant for small bowel obstruction secondary large incarcerated hernia with small bowel incarceration and this patient is status post expiratory laparotomy lysis of lesion and wound application on 10/27/2022 patient was subsequent presented to hospital with abdominal pain and drainage did have a CT with evidence of subcutaneous fluid layering suspicious for abscess status post surgical drainage on today's evaluation that is 12/07/2022, the patient continues to be afebrile, the patient is breathing comfortably and denies any shortness of breath no chest pain or cough, the patient abdominal pain slightly decreased in intensity no nausea no vomiting did have a bowel movement Patient did have white count of 8.75, creatinine 0.37 abdominal cultures growing enterococcus Objective - Vital Signs Vital signs: Vital Signs Temp 98.5 F 12/07/22 07:21 Pulse 89 12/07/22 07:21 Resp 18 12/07/22 07:21 BP 153/81 12/07/22 07:21 Pulse Ox 98 12/07/22 07:21 FiO2 Intake & Output 12/06/22 12/07/22 12/07/22 18:59 06:59 18:59 Intake Total 900 Output Total 800 Balance 100 Intake: IV 900 Output: Urine 750 Estimated Blood Loss 50 Other: # Voids 2 3 1 - Exam GENERAL DESCRIPTION: Middle-aged female lying in bed in no distress RESPIRATORY SYSTEM: Unlabored breathing , decreased breath sounds at bases HEART: S1 S2 regular rate and rhythm , ABDOMEN: Soft , abdominal wound covered with a wound VAC EXTREMITIES: No edema feet - Labs CBC & Chem 7: 12/07/22 06:30 12/07/22 06:30 Labs: Abnormal Lab Results - Last 24 Hours (Table) 12/06/22 12/06/22 12/07/22 Range/Units 17:02 19:43 05:33 Hgb (12.0-15.0) d/dL Hct (37.2-46.3) % MCH (27.0-32.0) pg MCHC (32.0-37.0) d/dL Sodium (137-145) mmol/L BUN (7-17) mg/dL Creatinine (0.52-1.04) mg/dL Glucose (74-99) mg/dL POC Glucose (mg/dL) 145 H 157 H 150 H (70-110) mg/dL Total Protein (6.3-8.2) g/dL Albumin (3.5-5.0) g/dL 12/07/22 12/07/22 12/07/22 Range/Units 06:30 06:30 11:03 Hgb 10.8 L (12.0-15.0) d/dL Hct 35.4 L (37.2-46.3) % MCH 24.9 L (27.0-32.0) pg MCHC 30.5 L (32.0-37.0) d/dL Sodium 136 L (137-145) mmol/L BUN 5 L (7-17) mg/dL Creatinine 0.37 L (0.52-1.04) mg/dL Glucose 140 H (74-99) mg/dL POC Glucose (mg/dL) 150 H (70-110) mg/dL Total Protein 6.1 L (6.3-8.2) g/dL Albumin 3.2 L (3.5-5.0) g/dL Microbiology - Last 24 Hours (Table) 12/06/22 09:53 Gram Stain - Preliminary Abdomen 12/06/22 09:52 Gram Stain - Preliminary Abdomen 12/06/22 09:51 Gram Stain - Preliminary Abdomen 12/04/22 17:04 Gram Stain - Preliminary Abdomen Wound Culture - Preliminary Group D Enterococcus 12/04/22 17:00 Blood Culture - Preliminary Blood 12/04/22 16:43 Blood Culture - Preliminary Blood Assessment and Plan (1) Wound infection after surgery Current Visit: Yes Status: Acute Code(s): T81.49XA - INFECTION FOLLOWING A P ROCEDURE, OTHER SURGICAL SITE, INIT SNOMED Code(s): 16551904 Plan: 1patient with abdominal wall abscess in this patient with recent surgery for an incarcerated hernia s/p resection now presenting the hospital with worsening drainage and pain with abnormal CT s/p debridement and a drainage of the fluid which are currently growing Enterococcus faecalis 2patient to continue patient on Zosyn 3.375 g every 8 hours , may need IV antibiotics on discharge depending upon clinical response Dictation was produced using [employer] dictation software. please excuse any grammatical, word or spelling errors. Time with Patient: Less than 30
[2022-12-07 19:05] LABS: Glucose,Whole Blood 227 mg/dL (70-110)
[2022-12-07] MEDS: INSULIN DETEMIR (LEVEMIR) 100 UNIT/ML SYR SQ SCH (20:49)
[2022-12-08] MEDS: SODIUM CHLORIDE 0.9% 1,000 ML IV SCH ×2 (01:07→12:23)
[2022-12-08] MEDS: HYDROmorphone 1 MG/ML 1 ML SYRINGE IVP PRN ×6 (02:17→19:52)
[2022-12-08 05:49] LABS: Glucose,Whole Blood 163 mg/dL (70-110)
[2022-12-08] MEDS: INSULIN ASPART (NovoLOG) 100 UNIT/ML VIAL SQ SCH ×4 (06:55→21:49)
[2022-12-08] MEDS: PIPERACILLIN-TAZOBACTAM 3.375 GM in SODIUM CHLORIDE 0.9% 100 ML IVPB SCH (08:18)
[2022-12-08] MEDS: PREGABALIN 75 MG CAP PO SCH ×2 (08:19→15:57)
[2022-12-08] MEDS: lisinopriL 10 MG TAB PO SCH (08:19)
[2022-12-08] MEDS: TICAGRELOR 90 MG TAB PO SCH ×2 (08:19→15:57)
[2022-12-08] MEDS: ASPIRIN 81 MG PO SCH (08:19)
[2022-12-08] MEDS: NYSTATIN 100,000 UNIT/GM POWD 15 GM TOPICAL SCH ×3 (08:21→21:50)
[2022-12-08 11:11] LABS: Glucose,Whole Blood 191 mg/dL (70-110)
--- NOTE | 2022-12-08 12:06 | P.PN ---
Subjective Progress Note Date: 12/08/22 CHIEF COMPLAINT: Abdominal wall fascial necrosis HISTORY OF PRESENT ILLNESS: Patient is postop day #2 status post excisional debridement of abdominal wall to the muscle and fascia with placement of Summer drain and application of wound VAC. Wound VAC is scheduled to be changed today. She is controlled. Afebrile. WBC 8.75 Hgb 10.8 cultures growing group D enterococcus PHYSICAL EXAM: VITAL SIGNS: Reviewed GENERAL: Well-developed in no acute distress. HEENT: No sclera icterus. Extraocular movements grossly intact. Moist buccal mucosa. Head is atraumatic, normocephalic. Hears conversational speech. No nasal drainage. NECK: Supple without lymphadenopathy. CHEST: Non-labored respirations and equal bilateral excursions. CARDIOVASCULAR: Palpable 2+ radial pulses. ABDOMEN: Soft. Nondistended. Wound VAC in place. Bloody drainage noted in canister. MUSCULOSKELETAL: No clubbing or cyanosis. NEUROLOGIC: No focal or lateralizing signs. Cranial nerves II through XII grossly intact. PSYCH: Appropriate affect. Alert and oriented to person, place and time. SKIN: Well perfused. Good skin turgor. ASSESSMENT: 1. Abdominal wall fascial necrosis 2. Morbid obesity due to excess calories, BMI 34.1 3. Status post recent exploratory laparotomy for bowel obstruction 4. Coronary artery disease 5. Chronic antiplatelet therapy 6. History of recurrent small bowel obstruction 7. History of recurrent abdominal wall hernia 8. Chronic pain syndrome 9. Diabetic neuropathy 10. Diabetes type 2, insulin-dependent 11. Hypertensive heart disease with congestive heart failure 12. Hyperlipidemia 13. Migraines 14. History of MRSA 15. Peripheral vascular occlusive disease 16. Status post stent, right lower extremity 17. Generalized anxiety disorder 18. Panic disorder 19. Claustrophobia PLAN: -Patient scheduled to have wound VAC change today -Recommend high protein diet with protein shakes -Social work for wound VAC and IV antibiotics at discharge and arranging home care -Discharge antibiotics per infectious disease Physician Concierge note has been reviewed by physician. Signing provider agrees with the documented findings, assessment, and plan of care. Objective - Vital Signs Vital signs: Vital Signs Temp 97.5 F L 12/08/22 07:44 Pulse 89 12/08/22 08:21 Resp 18 12/08/22 08:21 BP 178/72 12/08/22 07:44 Pulse Ox 95 12/08/22 07:44 FiO2 Intake & Output 12/07/22 12/08/22 12/08/22 18:59 06:59 18:59 Other: # Voids 2 3 # Bowel Movements 1 - Labs CBC & Chem 7: 12/07/22 06:30 12/07/22 06:30 Labs: Abnormal Lab Results - Last 24 Hours (Table) 12/07/22 12/07/22 12/08/22 Range/Units 16:38 19:04 05:48 POC Glucose (mg/dL) 218 H 227 H 163 H (70-110) mg/dL 12/08/22 Range/Units 11:10 POC Glucose (mg/dL) 191 H (70-110) mg/dL Microbiology - Last 24 Hours (Table) 12/04/22 17:00 Blood Culture - Preliminary Blood 12/04/22 16:43 Blood Culture - Preliminary Blood 12/06/22 09:52 Gram Stain - Preliminary Abdomen Wound Culture - Preliminary Group D Enterococcus 12/06/22 09:51 Gram Stain - Preliminary Abdomen Wound Culture - Preliminary Group D Enterococcus 12/06/22 09:53 Gram Stain - Preliminary Abdomen Wound Culture - Preliminary Group D Enterococcus 12/04/22 17:04 Gram Stain - Preliminary Abdomen Wound Culture - Preliminary Group D Enterococcus
--- NOTE | 2022-12-08 12:21 | P.PN ---
Subjective Progress Note Date: 12/08/22 Principal diagnosis: Abdominal wound infection Patient is a 52-year-old female with a past medical history significant for small bowel obstruction secondary large incarcerated hernia with small bowel incarceration and this patient is status post expiratory laparotomy lysis of lesion and wound application on 10/27/2022 patient was subsequent presented to hospital with abdominal pain and drainage did have a CT with evidence of subcutaneous fluid layering suspicious for abscess status post surgical drainage on today's evaluation that is12/08/2022, the patient remains to be afebrile, the patient is breathing comfortably on 2 L nasal cannula oxygen , the patient denies having any chest pain or cough, the patient denies nausea and vomiting the patient abdominal pain slightly decreased in intensity and denies having any diarrhea Patient did have white count of 8.75, creatinine 0.37 as of yesterday no blood draw today, abdominal cultures growing enterococcus Objective - Vital Signs Vital signs: Vital Signs Temp 97.5 F L 12/08/22 07:44 Pulse 89 12/08/22 08:21 Resp 18 12/08/22 08:21 BP 178/72 12/08/22 07:44 Pulse Ox 95 12/08/22 07:44 FiO2 Intake & Output 12/07/22 12/08/22 12/08/22 18:59 06:59 18:59 Other: # Voids 2 3 # Bowel Movements 1 - Exam GENERAL DESCRIPTION: Middle-aged female lying in bed in no distress RESPIRATORY SYSTEM: Unlabored breathing , decreased breath sounds at bases HEART: S1 S2 regular rate and rhythm , ABDOMEN: Soft , abdominal wound covered with a wound VAC EXTREMITIES: No edema feet - Labs CBC & Chem 7: 12/07/22 06:30 12/07/22 06:30 Labs: Abnormal Lab Results - Last 24 Hours (Table) 12/07/22 12/07/22 12/08/22 Range/Units 16:38 19:04 05:48 POC Glucose (mg/dL) 218 H 227 H 163 H (70-110) mg/dL 12/08/22 Range/Units 11:10 POC Glucose (mg/dL) 191 H (70-110) mg/dL Microbiology - Last 24 Hours (Table) 12/04/22 17:00 Blood Culture - Preliminary Blood 12/04/22 16:43 Blood Culture - Preliminary Blood 12/06/22 09:52 Gram Stain - Preliminary Abdomen Wound Culture - Preliminary Group D Enterococcus 12/06/22 09:51 Gram Stain - Preliminary Abdomen Wound Culture - Preliminary Group D Enterococcus 12/06/22 09:53 Gram Stain - Preliminary Abdomen Wound Culture - Preliminary Group D Enterococcus 12/04/22 17:04 Gram Stain - Preliminary Abdomen Wound Culture - Preliminary Group D Enterococcus Assessment and Plan (1) Wound infection after surgery Current Visit: Yes Status: Acute Code(s): T81.49XA - INFECTION FOLLOWING A PROCEDURE, OTHER SURGICAL SITE, INIT SNOMED Code(s): 28383373 Plan: 1patient with abdominal wall abscess in this patient with recent surgery for an incarcerated hernia s/p resection now presenting the hospital with worsening drainage and pain with abnormal CT s/p debridement and a drainage of the fluid w hich are currently growing Enterococcus faecalis and no other pathogen 2we will discontinue Zosyn 3.375 g every 8 hours start the patient on IV Unasyn, arrangement for outpatient IV antibiotics Dictation was produced using [employer] dictation software. please excuse any grammatical, word or spelling errors. Time with Patient: Less than 30
[2022-12-08] MEDS: MULTIVITAMINS, THERA 1 EACH TAB PO SCH (12:42)
[2022-12-08] MEDS: AMPICILLIN-SULBACTAM 3 GM in SODIUM CHLORIDE 0.9% 100 ML IVPB SCH ×2 (12:43→17:11)
[2022-12-08 13:49] VITALS: BMI 34.0
--- NOTE | 2022-12-08 15:51 | P.PN ---
Subjective Progress Note Date: 12/08/22 Hospital course: Patient is a very pleasant 52-year-old female with a past medical history of hypertension, hyperlipidemia, insulin-dependent diabetes mellitus,and peripheral vascular disease on Brilinta. She is currently admitted with abdominal wound infection status post exploratory or laparoscopic surgery with lysis of adhesions and wound VAC placement on 10/27/22. CT abdomen and pelvis with contrast was completed showing phlegmonous changes and gas within the anterior subcutaneous tissues with suspected layering fluid consistent with infectious/inflammatory process in concerns of underlying abscess. Patient is admitted under Gen. surgery team and we have been consulted for medical management throughout hospitalization. Physical exam: Patient seen and fully evaluated at bedside this morning. Patient appears to be doing much better this morning. She is postop day 2 reports postoperative pain is currently controlled. Vital signs reviewed and stable. General: Nontoxic, no distress and appears stated age. Derm: Skin warm and dry, normal coloration for ethnicity. Head: Atraumatic, normocephalic and symmetric. Eyes: EOMs intact, no lid lag, and anicteric sclera Mouth: no lip lesions, mucus membranes moist Cardiovascular: regular rate and rhythm with normal S1S2, no murmur, positive posterior tibial pulses bilaterally, and cap refill < 2 seconds. Lungs: Respirations even, regular, and unlabored on room air. Lungs CTA bilaterally, no rhonchi, no rales, no wheezing, and no accessory muscle usage. Abdominal: Abdominal dressing in place midabdomen with wound VAC. Mild excoriation beneath abdominal pannus Ext: ROM intact. No gross muscle atrophy, no edema, no contractures Neuro: Speech clear, face symmetrical and CN II-XII grossly intact with no noted focal neuro deficits Psych: Alert and oriented to person, place, time, and situation. Appropriate and pleasant affect. Assessment and Plan of Care: Abdominal wound infection, abdominal wall cellulitis with abscess Status post I&D with washout and placement of Summer drain and wound VAC 12/06/22 Status post exploratory laparotomy with lysis of adhesions and placement of wound VAC on 10/27/22 -CT abdomen and pelvis with contrast was completed showing phlegmonous changes and gas within the anterior subcutaneous tissues with suspected layering fluid consistent with infectious/inflammatory process in concerns of underlying abscess. -Patient admitted under Gen. surgery who took patient for I&D with washout and placement of Summer drain and wound VAC on 12/06/22 -Wound culture resulting positive for group D enterococcus, Continue IV antibiotics with Unasyn 3 g every 6 hours. -Continue with symptomatic care and pain management. -Recommend incentive spirometry 10-15 times hourly while awake. Order placed for incentive spirometer. Postoperative blood loss anemia, expected and stable finding -Preoperative hemoglobin 11.9 and postoperative hemoglobin stable at 10.8. No need for further intervention or transfusion at this time. Peripheral vascular disease status post stenting -Continuation of Brilinta 90 mg twice daily In atorvastatin 40 mg daily. Insulin-dependent diabetes mellitus. -Patient to continue Levemir 26 units nightly and placed on glycemic protocol with NovoLog sliding scale. Hypertension Continue daily medication regimen with lisinopril 10 mg daily Hyperlipidemia Continue daily medication regimen with atorvastatin 40 mg daily. Data reviewed: -Vital signs reviewed. Blood pressure 178/72, heart rate 89, respiratory rate 18, and temp 97.5F, and SpO2 of 95% on room air. Thank you for allowing us to participate in the care of this pleasant patient. Do not hesitate to contact us with questions. Someone can be reached from the [facility] hospitalist group all hours of the day at [phone] or via [employer]. Patient was seen independently by Nurse Pracitioner. This document was prepared using [employer] dictation software. Please allow for errors in fashion artist, while rare they do occur. Dante Greco NP rendered care for this patient independently, reviewed the findings and plan as documented in the note above. I did not physically speak with or examine the patient on this date. Objective - Vital Signs Vital signs: Vital Signs Temp 97.5 F L 12/08/22 07:44 Pulse 89 12/08/22 07:44 Resp 18 12/08/22 07:44 BP 178/72 12/08/22 07:44 Pulse Ox 95 12/08/22 07:44 FiO2 Intake & Output 12/07/22 12/08/22 12/08/22 18:59 06:59 18:59 Other: # Voids 2 3 # Bowel Movements 1 - Labs CBC & Chem 7: 12/09/22 07:00 12/09/22 07:00 Labs: Abnormal Lab Results - Last 24 Hours (Table) 12/07/22 12/07/22 12/07/22 Range/Units 06:30 11:03 16:38 Hgb 10.8 L (12.0-15.0) d/dL Hct 35.4 L (37.2-46.3) % MCH 24.9 L (27.0-32.0) pg MCHC 30.5 L (32.0-37.0) d/dL POC Glucose (mg/dL) 150 H 218 H (70-110) mg/dL 12/07/22 12/08/22 Range/Units 19:04 05:48 Hgb (12.0-15.0) d/dL Hct (37.2-46.3) % MCH (27.0-32.0) pg MCHC (32.0-37.0) d/dL POC Glucose (mg/dL) 227 H 163 H (70-110) mg/dL Microbiology - Last 24 Hours (Table) 12/04/22 17:00 Blood Culture - Preliminary Blood 12/04/22 16:43 Blood Culture - Preliminary Blood 12/06/22 09:52 Gram Stain - Preliminary Abdomen Wound Culture - Preliminary Group D Enterococcus 12/06/22 09:51 Gram Stain - Preliminary Abdomen Wound Culture - Preliminary Group D Enterococcus 12/06/22 09:53 Gram Stain - Preliminary Abdomen Wound Culture - Preliminary Group D Enterococcus 12/04/22 17:04 Gram Stain - Preliminary Abdomen Wound Culture - Preliminary Group D Enterococcus
[2022-12-08] MEDS: PANTOPRAZOLE 40 MG TABLET PO SCH (15:58)
[2022-12-08] MEDS: ATORVASTATIN 40 MG TAB PO SCH (15:58)
[2022-12-08 16:26] LABS: Glucose,Whole Blood 207 mg/dL (70-110)
[2022-12-08 20:38] LABS: Glucose,Whole Blood 200 mg/dL (70-110)
[2022-12-08] MEDS: INSULIN DETEMIR (LEVEMIR) 100 UNIT/ML SYR SQ SCH (21:49)
[2022-12-09] MEDS: AMPICILLIN-SULBACTAM 3 GM in SODIUM CHLORIDE 0.9% 100 ML IVPB SCH ×5 (00:24→23:51)
[2022-12-09] MEDS: HYDROmorphone 1 MG/ML 1 ML SYRINGE IVP PRN ×6 (00:25→21:49)
[2022-12-09 06:10] LABS: Glucose,Whole Blood 173 mg/dL (70-110)
[2022-12-09] MEDS: INSULIN ASPART (NovoLOG) 100 UNIT/ML VIAL SQ SCH ×4 (06:28→22:31)
[2022-12-09] MEDS: MULTIVITAMINS, THERA 1 EACH TAB PO SCH (09:51)
[2022-12-09] MEDS: ASPIRIN 81 MG PO SCH (09:51)
[2022-12-09] MEDS: PREGABALIN 75 MG CAP PO SCH ×2 (09:51→17:34)
[2022-12-09] MEDS: lisinopriL 10 MG TAB PO SCH (09:51)
[2022-12-09] MEDS: TICAGRELOR 90 MG TAB PO SCH ×2 (09:51→17:34)
[2022-12-09] MEDS: NYSTATIN 100,000 UNIT/GM POWD 15 GM TOPICAL SCH ×3 (10:29→23:52)
[2022-12-09 11:34] LABS: HCT 30.3 % (37.2-46.3); HGB 9.5 d/dL (12.0-15.0); MCH 25.5 pg (27.0-32.0); MCHC 31.4 d/dL (32.0-37.0); MCV 81.2 FL (80.0-97.0); Mean Platelet Volume 10.5 FL (9.5-12.2); NRBC Per 100 WBC 0 X 10*3/uL (0.00-0.01); Platelet Count 313 X 10*3/uL (140-440); RBC 3.73 X 10*6/uL (4.10-5.20); RDW 13.3 % (11.5-14.5); WBC 6.01 X 10*3/uL (4.50-10.00)
--- NOTE | 2022-12-09 11:35 | P.PN ---
Subjective Progress Note Date: 12/09/22 CHIEF COMPLAINT: Abdominal wall fascial necrosis HISTORY OF PRESENT ILLNESS: Patient is postop day #3 status post excisional debridement of abdominal wall to the muscle and fascia with placement of Summer drain and application of wound VAC. Wound VAC changed yesterday. Patient scheduled for PICC line placement for outpatient IV antibiotics. Culture growing Enterococcus faecalis. Afebrile. WBC 6.01 PHYSICAL EXAM: VITAL SIGNS: Reviewed GENERAL: Well-developed in no acute distress. HEENT: No sclera icterus. Extraocular movements grossly intact. Moist buccal mucosa. Head is atraumatic, normocephalic. Hears conversational speech. No nasal drainage. NECK: Supple without lymphadenopathy. CHEST: Non-labored respirations and equal bilateral excursions. CARDIOVASCULAR: Palpable 2+ radial pulses. ABDOMEN: Soft. Nondistended. Wound VAC in place. Bloody drainage noted in canister. MUSCULOSKELETAL: No clubbing or cyanosis. NEUROLOGIC: No focal or lateralizing signs. Cranial nerves II through XII grossly intact. PSYCH: Appropriate affect. Alert and oriented to person, place and time. SKIN: Well perfused. Good skin turgor. ASSESSMENT: 1. Abdominal wall fascial necrosis 2. Morbid obesity due to excess calories, BMI 34.1 3. Status post recent exploratory laparotomy for bowel obstruction 4. Coronary artery disease 5. Chronic antiplatelet therapy 6. History of recurrent small bowel obstruction 7. History of recurrent abdominal wall hernia 8. Chronic pain syndrome 9. Diabetic neuropathy 10. Diabetes type 2, insulin-dependent 11. Hypertensive heart disease with congestive heart failure 12. Hyperlipidemia 13. Migraines 14. History of MRSA 15. Peripheral vascular occlusive disease 16. Status post stent, right lower extremity 17. Generalized anxiety disorder 18. Panic disorder 19. Claustrophobia PLAN: -Patient scheduled for Picc line placement today -Recommend high protein diet with protein shakes -Social work for wound VAC and IV antibiotics at discharge and arranging homecare. Awaiting insurance approval on wound vac -Discharge antibiotics per infectious disease -Anticipate discharge possibly tomorrow Physician Magnetic Testing Technician note has been reviewed by physician. Signing provider agrees with the documented findings, assessment, and plan of care. Objective - Vital Signs Vital signs: Vital Signs Temp 97.6 F 12/09/22 01:52 Pulse 89 12/09/22 01:52 Resp 18 12/09/22 01:52 BP 147/76 12/09/22 01:52 Pulse Ox 98 12/09/22 01:52 FiO2 Intake & Output 12/08/22 12/09/22 12/09/22 18:59 06:59 18:59 Intake Total 1080 Balance 1080 Weight 95.708 kg Intake: Oral 1080 Other: # Voids 3 1 - Labs CBC & Chem 7: 12/07/22 06:30 12/07/22 06:30 Labs: Abnormal Lab Results - Last 24 Hours (Table) 12/08/22 12/08/22 12/08/22 Range/Units 11:10 16:25 20:35 POC Glucose (mg/dL) 191 H 207 H 200 H (70-110) mg/dL 12/09/22 Range/Units 06:08 POC Glucose (mg/dL) 173 H (70-110) mg/dL Microbiology - Last 24 Hours (Table) 12/06/22 09:51 Gram Stain - Final Abdomen Wound Culture - Final Enterococcus faecalis 12/06/22 09:52 Gram Stain - Final Abdomen Wound Culture - Final Enterococcus faecalis 12/06/22 09:53 Gram Stain - Final Abdomen Wound Culture - Final Enterococcus faecalis
[2022-12-09 11:41] LABS: Glucose,Whole Blood 154 mg/dL (70-110)
[2022-12-09 13:19] LABS: ALT 13 U/L (8-44); AST 10 U/L (13-35); Albumin 3.2 d/dL (3.8-4.9); Albumin/Globulin Ratio 1.45 Ratio (1.60-3.17); Alkaline Phosphatase 98 U/L (41-126); Blood Urea Nitrogen 7.6 mg/dL (9.0-27.0); Calcium 8.9 mg/dL (8.7-10.3); Chloride 107 mmol/L (96-109); Globulin 2.2 d/dL (1.6-3.3); Glucose 160 mg/dL (70-110); Magnesium 1.8 mg/dL (1.5-2.4); Potassium 3.7 mmol/L (3.5-5.5); Sodium 140 mmol/L (135-145); Total Bilirubin <0.2 mg/dL (0.3-1.2); Total Protein 5.4 d/dL (6.2-8.2)
[2022-12-09] MEDS ORDERED: LIDOCAINE 1% INJ 10MG/ML (5 ML VIAL-PF) SQ ONE (13:57)
--- NOTE | 2022-12-09 14:52 | IR ---
PICC LINE PLACEMENT: HISTORY: Infection requiring long-term antibiotic therapy PROCEDURE: Ultrasound and fluoroscopic guidance of PICC line placement. COMPLICATIONS: None ANESTHESIA: 1. 1% Lidocaine locally. FINDINGS/TECHNIQUE: The procedure was explained to the patient. The risks, complications, benefits and alternatives were discussed and any questions were answered. Informed consent was obtained. The patient was placed supine on the fluoroscopic table and prepped and draped in the usual sterile fash ion. Utilizing a 21 gauge needle and sonographic and fluoroscopic guidance, access in the left basi lic vein was achieved and there is placement of a 0.018 guidewire. The vein is patent. A 4-F sheath was placed over the guidewire. The guidewire and dilator were removed and a 4-F. PICC line was plac ed through the sheath with the tip at the level of the SVC. The sheath was removed, the catheter was flushed and sutured into position. The patient was stable throughout the procedure and remained sta ble upon discharge from the Department of Radiology. The vein puncture was patent under ultrasound. A chang scale image was obtained to document patency of the vein punctured. All elements of the maximal barrier technique were utilized. FLUOROSCOPY TIME: DAP 0.168Gy cm2 IMPRESSION: Successful PICC line placement under ultrasound and fluoroscopic guidance.
--- NOTE | 2022-12-09 15:00 | P.PN ---
Subjective Progress Note Date: 12/09/22 Hospital course: Patient is a very pleasant 52-year-old female with a past medical history of hypertension, hyperlipidemia, insulin-dependent diabetes mellitus,and peripheral vascular disease on Brilinta. She is currently admitted with abdominal wound infection status post exploratory or laparoscopic surgery with lysis of adhesions and wound VAC placement on 10/27/22. CT abdomen and pelvis with contrast was completed showing phlegmonous changes and gas within the anterior subcutaneous tissues with suspected layering fluid consistent with infectious/inflammatory process in concerns of underlying abscess. Patient is admitted under Gen. surgery team and we have been consulted for medical management throughout hospitalization. Patient underwent I&D and washout with placement of Summer drain and wound VAC on 12/06/22. Wound cultures obtained at this time. There positive for group D Enterococcus faecalis. Physical exam: Patient seen and fully evaluated at bedside this morning. Patient is postop day 3. She appears to be doing well denies having any needs or complaints at this time. Patient reports she has been using her incentive spirometry as encouraged and instructed. She has been tolerating a regular diet, having reported normal soft and formed bowel movements, and denies having any nausea or vomiting. Vital signs reviewed and stable. General: Nontoxic, no distress and appears stated age. Derm: Skin warm and dry, normal coloration for ethnicity. Head: Atraumatic, normocephalic and symmetric. Eyes: EOMs intact, no lid lag, and anicteric sclera Mouth: no lip lesions, mucus membranes moist Cardiovascular: regular rate and rhythm with normal S1S2, no murmur, positive posterior tibial pulses bilaterally, and cap refill < 2 seconds. Lungs: Respirations even, regular, and unlabored on room air. Lungs CTA bilaterally, no rhonchi, no rales, no wheezing, and no accessory muscle usage. Abdominal: Abdominal dressing in place midabdomen with wound VAC. Mild excoriation beneath abdominal pannus Ext: ROM intact. No gross muscle atrophy, no edema, no contractures Neuro: Speech clear, face symmetrical and CN II-XII grossly intact with no noted focal neuro deficits Psych: Alert and oriented to person, place, time, and situation. Appropriate and pleasant affect. Assessment and Plan of Care: Enterococcus faecalis Abdominal wound infection with surrounding abdominal wall cellulitis and abscess Status post I&D with washout and placement of [place] drain and wound VAC 12/06/22 Status post exploratory laparotomy with lysis of adhesions and placement of wound VAC on 10/27/22 -CT abdomen and pelvis with contrast was completed showing phlegmonous changes and gas within the anterior subcutaneous tissues with suspected layering fluid consistent with infectious/inflammatory process in concerns of underlying abscess. -Patient admitted under Gen. surgery who took patient for I&D with washout and placement of [place] drain and wound VAC on 12/06/22 -Wound culture resulting positive for group D enterococcus. -Blood cultures showing no growth to date. -Continue IV antibiotics with Unasyn 3 g every 6 hours. -Continue with symptomatic care and pain management. -Recommend incentive spirometry 10-15 times hourly while awake. Order placed for incentive spirometer. Postoperative blood loss anemia, expected and stable finding -Preoperative hemoglobin 11.9 and postoperative hemoglobin stable at 9.5.. No need for further intervention or transfusion at this time. Peripheral vascular disease status post stenting -Continuation of Brilinta 90 mg twice daily In atorvastatin 40 mg daily. Insulin-dependent diabetes mellitus. -Patient to continue Levemir 26 units nightly and placed on glycemic protocol with NovoLog sliding scale. Hypertension Continue daily medication regimen with lisinopril 10 mg daily Hyperlipidemia Continue daily medication regimen with atorvastatin 40 mg daily. Data reviewed: -Vital signs reviewed. Blood pressure 130/74, heart rate 79, respiratory rate 18, temp 97.8F, SpO2 of 98% on room air. -Labs completed and reviewed. CBC showing stable postoperative blood loss anemia with hemoglobin of 9.5. BMP unremarkable. Liver profile showing no significant abnormalities. Thank you for allowing us to participate in the care of this pleasant patient. Do not hesitate to contact us with questions. Someone can be reached from the [facility] hospitalist group all hours of the day at [phone] or via [employer]. Patient was seen independently by Nurse Pracitioner. This document was prepared using [employer] dictation software. Please allow for errors in lining stuffer, while rare they do occur. Dante Greco NP rendered care for this patient independently, reviewed the findings and plan as documented in the note above. I did not physically speak with or examine the patient on this date. Objective - Vital Signs Vital signs: Vital Signs Temp 97.6 F 12/09/22 01:52 Pulse 89 12/09/22 01:52 Resp 18 12/09/22 01:52 BP 147/76 12/09/22 01:52 Pulse Ox 98 12/09/22 01:52 FiO2 Intake & Output 12/08/22 12/09/22 12/09/22 18:59 06:59 18:59 Intake Total 1080 Balance 1080 Weight 95.708 kg Intake: Oral 1080 Other: # Voids 3 1 - Labs CBC & Chem 7: 12/09/22 07:00 12/09/22 07:00 Labs: Abnormal Lab Results - Last 24 Hours (Table) 12/08/22 12/08/22 12/08/22 Range/Units 11:10 16:25 20:35 POC Glucose (mg/dL) 191 H 207 H 200 H (70-110) mg/dL 12/09/22 Range/Units 06:08 POC Glucose (mg/dL) 173 H (70-110) mg/dL Microbiology - Last 24 Hours (Table) 12/06/22 09:51 Gram Stain - Final Abdomen Wound Culture - Final Enterococcus faecalis 12/06/22 09:52 Gram Stain - Final Abdomen Wound Culture - Final Enterococcus faecalis 12/06/22 09:53 Gram Stain - Final Abdomen Wound Culture - Final Enterococcus faecalis 12/04/22 17:00 Blood Culture - Preliminary Blood 12/04/22 16:43 Blood Culture - Preliminary Blood
[2022-12-09 16:32] LABS: Glucose,Whole Blood 132 mg/dL (70-110)
--- NOTE | 2022-12-09 17:09 | P.PN ---
Subjective Progress Note Date: 12/09/22 Principal diagnosis: Abdominal wound infection Patient is a 52-year-old female with a past medical history significant for small bowel obstruction secondary large incarcerated hernia with small bowel incarceration and this patient is status post expiratory laparotomy lysis of lesion and wound application on 10/27/2022 patient was subsequent presented to hospital with abdominal pain and drainage did have a CT with evidence of subcutaneous fluid layering suspicious for abscess status post surgical drainage on today's evaluation that is 12/09/2022, the patient denies any fever or any chills, the patient is breathing comfortably , the patient denies chest pain or cough, the patient denies nausea and vomiting, the patient abdominal pain slightly decreased in intensity and denies having any diarrhea Patient did have white count of 6.01, creatinine 0.4, abdominal cultures growing enterococcus Objective - Vital Signs Vital signs: Vital Signs Temp 98.9 F 12/09/22 14:53 Pulse 91 12/09/22 14:53 Resp 14 12/09/22 14:53 BP 145/80 12/09/22 14:53 Pulse Ox 97 12/09/22 14:53 FiO2 Intake & Output 12/08/22 12/09/22 12/09/22 18:59 06:59 18:59 Intake Total 1080 Balance 1080 Weight 95.708 kg Intake: Oral 1080 Other: # Voids 3 1 1 - Exam GENERAL DESCRIPTION: Middle-aged female lying in bed in no distress RESPIRATORY SYSTEM: Unlabored breathing , decreased breath sounds at bases HEART: S1 S2 regular rate and rhythm , ABDOMEN: Soft , abdominal wound covered with a wound VAC EXTREMITIES: No edema feet - Labs CBC & Chem 7: 12/09/22 07:00 12/09/22 07:00 Labs: Abnormal Lab Results - Last 24 Hours (Table) 12/08/22 12/09/22 12/09/22 Range/Units 20:35 06:08 07:00 RBC 3.73 L (4.10-5.20) X 10*6/uL Hgb 9.5 L (12.0-15.0) d/dL Hct 30.3 L (37.2-46.3) % MCH 25.5 L (27.0-32.0) pg MCHC 31.4 L (32.0-37.0) d/dL BUN (9.0-27.0) mg/dL Creatinine (0.6-1.5) mg/dL Glucose (70-110) mg/dL POC Glucose (mg/dL) 200 H 173 H (70-110) mg/dL Total Bilirubin (0.3-1.2) mg/dL AST (13-35) U/L Total Protein (6.2-8.2) d/dL Albumin (3.8-4.9) d/dL Albumin/Globulin Ratio (1.60-3.17) Ratio 12/09/22 12/09/22 12/09/22 Range/Units 07:00 11:40 16:31 RBC (4.10-5.20) X 10*6/uL Hgb (12.0-15.0) d/dL Hct (37.2-46.3) % MCH (27.0-32.0) pg MCHC (32.0-37.0) d/dL BUN 7.6 L (9.0-27.0) mg/dL Creatinine 0.4 L (0.6-1.5) mg/dL Glucose 160 H (70-110) mg/dL POC Glucose (mg/dL) 154 H 132 H (70-110) mg/dL Total Bilirubin <0.2 L (0.3-1.2) mg/dL AST 10 L (13-35) U/L Total Protein 5.4 L (6.2-8.2) d/dL Albumin 3.2 L (3.8-4.9) d/dL Albumin/Globulin Ratio 1.45 L (1.60-3.17) Ratio Microbiology - Last 24 Hours (Table) 12/06/22 09:51 Gram Stain - Final Abdomen Wound Culture - Final Enterococcus faecalis 12/06/22 09:52 Gram Stain - Final Abdomen Wound Culture - Final Enterococcus faecalis 12/06/22 09:53 Gram Stain - Final Abdomen Wound Culture - Final Enterococcus faecalis Assessment and Plan (1) Wound infection after surgery Current Visit: Yes Status: Acute Code(s): T81.49XA - INFECTION FOLLOWING A PROCEDURE, OTHER SURGICAL SITE, INIT SNOMED Code(s): 48771212 Plan: 1patient with abdominal wall abscess in this patient with recent surgery for an incarcerated hernia s/p resection now presenting the hospital with worsening d rainage and pain with abnormal CT s/p debridement and a drainage of the fluid which are currently growing Enterococcus faecalis and no other pathogen 2patient to continue with IV Unasyn, plan for PICC line and a two-week course of IV Unasyn Dictation was produced using [employer] dictation software. please excuse any grammatical, word or spelling errors. Time with Patient: Less than 30
[2022-12-09] MEDS: PANTOPRAZOLE 40 MG TABLET PO SCH (17:34)
[2022-12-09] MEDS: ATORVASTATIN 40 MG TAB PO SCH (17:34)
[2022-12-09 20:22] LABS: Glucose,Whole Blood 160 mg/dL (70-110)
[2022-12-09] MEDS: INSULIN DETEMIR (LEVEMIR) 100 UNIT/ML SYR SQ SCH (22:12)
[2022-12-10] MEDS: HYDROmorphone 1 MG/ML 1 ML SYRINGE IVP PRN ×3 (01:47→08:38)
[2022-12-10] MEDS: AMPICILLIN-SULBACTAM 3 GM in SODIUM CHLORIDE 0.9% 100 ML IVPB SCH ×4 (05:23→23:58)
[2022-12-10 05:55] LABS: Glucose,Whole Blood 169 mg/dL (70-110)
[2022-12-10] MEDS: INSULIN ASPART (NovoLOG) 100 UNIT/ML VIAL SQ SCH ×4 (06:51→20:34)
[2022-12-10] MEDS: ASPIRIN 81 MG PO SCH (08:38)
[2022-12-10] MEDS: lisinopriL 10 MG TAB PO SCH (08:38)
[2022-12-10] MEDS: MULTIVITAMINS, THERA 1 EACH TAB PO SCH (08:38)
[2022-12-10] MEDS: PREGABALIN 75 MG CAP PO SCH ×2 (08:38→15:50)
[2022-12-10] MEDS: TICAGRELOR 90 MG TAB PO SCH ×2 (08:39→15:50)
[2022-12-10 11:10] LABS: Glucose,Whole Blood 221 mg/dL (70-110)
[2022-12-10] MEDS ORDERED: HYDROcodone/APAP 5-325MG 1 EACH TAB PO PRN (11:47)
[2022-12-10] MEDS: NYSTATIN 100,000 UNIT/GM POWD 15 GM TOPICAL SCH ×3 (12:32→20:35)
[2022-12-10] MEDS ORDERED: HYDROcodone/APAP 10-325MG 1 EACH TAB PO PRN (13:50)
--- NOTE | 2022-12-10 14:29 | P.PN ---
Subjective Progress Note Date: 12/10/22 CHIEF COMPLAINT: Abdominal wall fascial necrosis HISTORY OF PRESENT ILLNESS: Patient is postop day #4 status post excisional debridement of abdominal wall to the muscle and fascia with placement of Summer drain and application of wound VAC. Patient status post PICC line placement for IV antibiotics outpatient. She is tolerating diet. Afebrile. PHYSICAL EXAM: VITAL SIGNS: Reviewed GENERAL: Well-developed in no acute distress. HEENT: No sclera icterus. Extraocular movements grossly intact. Moist buccal mucosa. Head is atraumatic, normocephalic. Hears conversational speech. No nasal drainage. NECK: Supple without lymphadenopathy. CHEST: Non-labored respirations and equal bilateral excursions. CARDIOVASCULAR: Palpable 2+ radial pulses. ABDOMEN: Soft. Nondistended. Wound VAC in place. Bloody drainage noted in canister. MUSCULOSKELETAL: No clubbing or cyanosis. NEUROLOGIC: No focal or lateralizing signs. Cranial nerves II through XII grossly intact. PSYCH: Appropriate affect. Alert and oriented to person, place and time. SKIN: Well perfused. Good skin turgor. ASSESSMENT: 1. Abdominal wall fascial necrosis 2. Morbid obesity due to excess calories, BMI 34.1 3. Status post recent exploratory laparotomy for bowel obstruction 4. Coronary artery disease 5. Chronic antiplatelet therapy 6. History of recurrent small bowel obstruction 7. History of recurrent abdominal wall hernia 8. Chronic pain syndrome 9. Diabetic neuropathy 10. Diabetes type 2, insulin-dependent 11. Hypertensive heart disease with congestive heart failure 12. Hyperlipidemia 13. Migraines 14. History of MRSA 15. Peripheral vascular occlusive disease 16. Status post stent, right lower extremity 17. Generalized anxiety disorder 18. Panic disorder 19. Claustrophobia PLAN: -Awaiting insurance authorization for wound VAC prior to discharge -Discharge planning in progress -Recommend high protein diet with protein shakes -Social work for wound VAC and IV antibiotics at discharge and arranging homecare -Discharge antibiotics per infectious disease, Unasyn IV for 2 weeks -Wound VAC to be changed today Physician Assistant Hall Director note has been reviewed by physician. Signing provider agrees with the documented findings, assessment, and plan of care. Objective - Vital Signs Vital signs: Vital Signs Temp 97.9 F 12/10/22 06:59 Pulse 87 12/10/22 06:59 Resp 14 12/10/22 06:59 BP 124/72 12/10/22 06:59 Pulse Ox 97 12/10/22 06:59 FiO2 Intake & Output 12/09/22 12/10/22 12/10/22 18:59 06:59 18:59 Intake Total 1080 Balance 1080 Intake: Oral 1080 Other: Voiding Method Toilet # Voids 3 3 - Labs CBC & Chem 7: 12/09/22 07:00 12/09/22 07:00 Labs: Abnormal Lab Results - Last 24 Hours (Table) 12/09/22 12/09/22 12/09/22 Range/Units 07:00 07:00 11:40 RBC 3.73 L (4.10-5.20) X 10*6/uL Hgb 9.5 L (12.0-15.0) d/dL Hct 30.3 L (37.2-46.3) % MCH 25.5 L (27.0-32.0) pg MCHC 31.4 L (32.0-37.0) d/dL BUN 7.6 L (9.0-27.0) mg/dL Creatinine 0.4 L (0.6-1.5) mg/dL Glucose 160 H (70-110) mg/dL POC Glucose (mg/dL) 154 H (70-110) mg/dL Total Bilirubin <0.2 L (0.3-1.2) mg/dL AST 10 L (13-35) U/L Total Protein 5.4 L (6.2-8.2) d/dL Albumin 3.2 L (3.8-4.9) d/dL Albumin/Globulin Ratio 1.45 L (1.60-3.17) Ratio 12/09/22 12/09/22 12/10/22 Range/Units 16:31 20:20 05:53 RBC (4.10-5.20) X 10*6/uL Hgb (12.0-15.0) d/dL Hct (37.2-46.3) % MCH (27.0-32.0) pg MCHC (32.0-37.0) d/dL BUN (9.0-27.0) mg/dL Creatinine (0.6-1.5) mg/dL Glucose (70-110) mg/dL POC Glucose (mg/dL) 132 H 160 H 169 H (70-110) mg/dL Total Bilirubin (0.3-1.2) mg/dL AST (13-35) U/L Total Protein (6.2-8.2) d/dL Albumin (3.8-4.9) d/dL Albumin/Globulin Ratio (1.60-3.17) Ratio Microbiology - Last 24 Hours (Table) 12/04/22 17:00 Blood Culture - Final Blood 12/04/22 16:43 Blood Culture - Final Blood 12/06/22 09:53 Anaerobic Culture - Final Abdomen Anaerobic Gram Positive Cocci 12/06/22 09:51 Anaerobic Culture - Final Abdomen Anaerobic Gram Positive Cocci 12/06/22 09:52 Anaerobic Culture - Final Abdomen Anaerobic Gram Positive Cocci
--- NOTE | 2022-12-10 15:47 | P.PN ---
Subjective Progress Note Date: 12/10/22 Hospital course: Patient is a very pleasant 52-year-old female with a past medical history of hypertension, hyperlipidemia, insulin-dependent diabetes mellitus,and peripheral vascular disease on Brilinta. She is currently admitted with abdominal wound infection status post exploratory or laparoscopic surgery with lysis of adhesions and wound VAC placement on 10/27/22. CT abdomen and pelvis with contrast was completed showing phlegmonous changes and gas within the anterior subcutaneous tissues with suspected layering fluid consistent with infectious/inflammatory process in concerns of underlying abscess. Patient is admitted under Gen. surgery team and we have been consulted for medical management throughout hospitalization. Patient underwent I&D and washout with placement of [place] drain and wound VAC on 12/06/22. Wound cultures obtained at this time and were positive for group D Enterococcus faecalis. Physical exam: Patient seen and fully evaluated at bedside this morning. Patient is postop day 4. She continues to be doing well and denies having any needs or complaints at this time. Patient reports she has been using her incentive spirometry as encouraged and instructed. She has been tolerating a regular diet, having reported normal soft and formed bowel movements, and denies having any nausea or vomiting. Vital signs reviewed and stable. General: Nontoxic, no distress and appears stated age. Derm: Skin warm and dry, normal coloration for ethnicity. Head: Atraumatic, normocephalic and symmetric. Eyes: EOMs intact, no lid lag, and anicteric sclera Mouth: no lip lesions, mucus membranes moist Cardiovascular: regular rate and rhythm with normal S1S2, no murmur, positive posterior tibial pulses bilaterally, and cap refill < 2 seconds. Lungs: Respirations even, regular, and unlabored on room air. Lungs CTA bilaterally, no rhonchi, no rales, no wheezing, and no accessory muscle usage. Abdominal: Abdominal dressing in place midabdomen with wound VAC. Mild excoriation beneath abdominal pannus Ext: ROM intact. No gross muscle atrophy, no edema, no contractures Neuro: Speech clear, face symmetrical and CN II-XII grossly intact with no noted focal neuro deficits Psych: Alert and oriented to person, place, time, and situation. Appropriate and pleasant affect. Assessment and Plan of Care: Enterococcus faecalis Abdominal wound infection with surrounding abdominal wall cellulitis and abscess Status post I&D with washout and placement of [place] drain and wound VAC 12/06/22 Status post exploratory laparotomy with lysis of adhesions and placement of wound VAC on 10/27/22 -CT abdomen and pelvis with contrast was completed showing phlegmonous changes and gas within the anterior subcutaneous tissues with suspected layering fluid consistent with infectious/inflammatory process in concerns of underlying abscess. -Patient admitted under Gen. surgery who took patient for I&D with washout and placement of [place] drain and wound VAC on 12/06/22 -Wound culture resulting positive for group D enterococcus faecalis -Blood cultures showing no growth to date. -Continue IV antibiotics with Unasyn 3 g every 6 hours. -Continue with symptomatic care and pain management. -Recommend incentive spirometry 10-15 times hourly while awake. Order placed for incentive spirometer. Postoperative blood loss anemia, expected and stable finding -Preoperative hemoglobin 11.9 and postoperative hemoglobin stable at 9.5.. No need for further intervention or transfusion at this time. Peripheral vascular disease status post stenting -Continuation of Brilinta 90 mg twice daily In atorvastatin 40 mg daily. Insulin-dependent diabetes mellitus. -Patient to continue Levemir 26 units nightly and placed on glycemic protocol with NovoLog sliding scale. Hypertension Continue daily medication regimen with lisinopril 10 mg daily Hyperlipidemia Continue daily medication regimen with atorvastatin 40 mg daily. Data reviewed: -Vital signs reviewed. Blood pressure 124/72, heart rate 87, respiratory rate 14, temp 97.9F, and SpO2 of 97%. Medically, patient is stable for discharge at this time once cleared by primary admitting general surgery team. Pt is being discharged home with homecare on IV antibiotics and woundvac. Patient currently waiting on insurance authorization for wound VAC. Thank you for allowing us to participate in the care of this pleasant patient. Do not hesitate to contact us with questions. Someone can be reached from the [facility] hospitalist group all hours of the day at [phone] or via perfect serve. Patient was seen independently by Nurse Pracitioner. This document was prepared using [employer] dictation software. Please allow for errors in sales representative gas service, while rare they do occur. Objective - Vital Signs Vital signs: Vital Signs Temp 97.9 F 12/10/22 06:59 Pulse 87 12/10/22 06:59 Resp 14 12/10/22 06:59 BP 124/72 12/10/22 06:59 Pulse Ox 97 12/10/22 06:59 FiO2 Intake & Output 12/09/22 12/10/22 12/10/22 18:59 06:59 18:59 Intake Total 1080 Balance 1080 Intake: Oral 1080 Other: # Voids 3 3 - Labs CBC & Chem 7: 12/09/22 07:00 12/09/22 07:00 Labs: Abnormal Lab Results - Last 24 Hours (Table) 12/09/22 12/09/22 12/09/22 Range/Units 07:00 07:00 11:40 RBC 3.73 L (4.10-5.20) X 10*6/uL Hgb 9.5 L (12.0-15.0) d/dL Hct 30.3 L (37.2-46.3) % MCH 25.5 L (27.0-32.0) pg MCHC 31.4 L (32.0-37.0) d/dL BUN 7.6 L (9.0-27.0) mg/dL Creatinine 0.4 L (0.6-1.5) mg/dL Glucose 160 H (70-110) mg/dL POC Glucose (mg/dL) 154 H (70-110) mg/dL Total Bilirubin <0.2 L (0.3-1.2) mg/dL AST 10 L (13-35) U/L Total Protein 5.4 L (6.2-8.2) d/dL Albumin 3.2 L (3.8-4.9) d/dL Albumin/Globulin Ratio 1.45 L (1.60-3.17) Ratio 12/09/22 12/09/22 12/10/22 Range/Units 16:31 20:20 05:53 RBC (4.10-5.20) X 10*6/uL Hgb (12.0-15.0) d/dL Hct (37.2-46.3) % MCH (27.0-32.0) pg MCHC (32.0-37.0) d/dL BUN (9.0-27.0) mg/dL Creatinine (0.6-1.5) mg/dL Glucose (70-110) mg/dL POC Glucose (mg/dL) 132 H 160 H 169 H (70-110) mg/dL Total Bilirubin (0.3-1.2) mg/dL AST (13-35) U/L Total Protein (6.2-8.2) d/dL Albumin (3.8-4.9) d/dL Albumin/Globulin Ratio (1.60-3.17) Ratio Microbiology - Last 24 Hours (Table) 12/04/22 17:00 Blood Culture - Final Blood 12/04/22 16:43 Blood Culture - Final Blood 12/06/22 09:53 Anaerobic Culture - Final Abdomen Anaerobic Gram Positive Cocci 12/06/22 09:51 Anaerobic Culture - Final Abdomen Anaerobic Gram Positive Cocci 12/06/22 09:52 Anaerobic Culture - Final Abdomen Anaerobic Gram Positive Cocci
[2022-12-10] MEDS: ATORVASTATIN 40 MG TAB PO SCH (15:50)
[2022-12-10] MEDS: PANTOPRAZOLE 40 MG TABLET PO SCH (15:50)
[2022-12-10 16:31] LABS: Glucose,Whole Blood 200 mg/dL (70-110)
[2022-12-10 20:17] LABS: Glucose,Whole Blood 222 mg/dL (70-110)
[2022-12-10] MEDS: HYDROcodone/APAP 10-325MG 1 EACH TAB PO PRN (20:33)
[2022-12-10] MEDS: MORPHINE SULFATE ER 15 MG TABLET PO SCH (20:34)
[2022-12-10] MEDS: INSULIN DETEMIR (LEVEMIR) 100 UNIT/ML SYR SQ SCH (20:34)
[2022-12-11] MEDS: HYDROcodone/APAP 10-325MG 1 EACH TAB PO PRN ×4 (02:33→20:30)
[2022-12-11 05:41] LABS: Glucose,Whole Blood 135 mg/dL (70-110)
[2022-12-11] MEDS: INSULIN ASPART (NovoLOG) 100 UNIT/ML VIAL SQ SCH ×4 (05:47→20:29)
[2022-12-11] MEDS: AMPICILLIN-SULBACTAM 3 GM in SODIUM CHLORIDE 0.9% 100 ML IVPB SCH ×4 (06:02→23:05)
--- NOTE | 2022-12-11 07:59 | P.PN ---
Subjective Progress Note Date: 12/10/22 Principal diagnosis: Abdominal wound infection Patient is a 52-year-old female with a past medical history significant for small bowel obstruction secondary large incarcerated hernia with small bowel incarceration and this patient is status post expiratory laparotomy lysis of lesion and wound application on 10/27/2022 patient was subsequent presented to hospital with abdominal pain and drainage did have a CT with evidence of subcutaneous fluid layering suspicious for abscess status post surgical drainage On today's evaluation that is 12/10/2022, the patient denies having any fever or any chills, the patient is breathing comfortably, the patient denies having any chest pain shortness of breath or cough, the patient denies having any nausea and no vomiting patient abdominal pain has decreased in intensity and no diarrhea. Patient did have a white count of 6.01 with a creatinine of 0.4 as of yesterday no blood draw today abdominal culture positive for anaerobic gram-positive cocci and Enterococcus faecalis. Objective - Vital Signs Vital signs: Vital Signs Temp 97.9 F 12/10/22 06:59 Pulse 87 12/10/22 06:59 Resp 14 12/10/22 06:59 BP 124/72 12/10/22 06:59 Pulse Ox 95 12/10/22 11:05 FiO2 Intake & Output 12/09/22 12/10/22 12/10/22 18:59 06:59 18:59 Intake Total 1080 Balance 1080 Intake: Oral 1080 Other: Voiding Method Toilet # Voids 3 3 - Exam GENERAL DESCRIPTION: Middle-aged female lying in bed in no distress RESPIRATORY SYSTEM: Unlabored breathing , decreased breath sounds at bases HEART: S1 S2 regular rate and rhythm , ABDOMEN: Soft , abdominal wound covered with a wound VAC EXTREMITIES: No edema feet - Labs CBC & Chem 7: 12/09/22 07:00 12/09/22 07:00 Labs: Abnormal Lab Results - Last 24 Hours (Table) 12/09/22 12/09/22 12/10/22 Range/Units 16:31 20:20 05:53 POC Glucose (mg/dL) 132 H 160 H 169 H (70-110) mg/dL 12/10/22 Range/Units 11:08 POC Glucose (mg/dL) 221 H (70-110) mg/dL Microbiology - Last 24 Hours (Table) 12/04/22 17:00 Blood Culture - Final Blood 12/04/22 16:43 Blood Culture - Final Blood 12/06/22 09:53 Anaerobic Culture - Final Abdomen Anaerobic Gram Positive Cocci 12/06/22 09:51 Anaerobic Culture - Final Abdomen Anaerobic Gram Positive Cocci 12/06/22 09:52 Anaerobic Culture - Final Abdomen Anaerobic Gram Positive Cocci Assessment and Plan (1) Wound infection after surgery Current Visit: Yes Status: Acute Code(s): T81.49XA - INFECTION FOLLOWING A PROCEDURE, OTHER SURGICAL SITE, INIT SNOMED Code(s): 94205406 Plan: 1patient with abdominal wall abscess in this patient with recent surgery for an incarcerated hernia s/p resection now presenting the hospital with worsening drainage and pain with abnormal CT s/p debridement and a drainage of the fluid which are currently growing Enterococcus faecalis and And anaerobic gram- positive cocci. 2patient to continue with the Unasyn 3 g every 6 hours PICC line has been ordered prescription for outpatient Unasyn has been provided to the case sealer was antibiotic arranged patient will be able to go home with a close outpatient follow-up Dictation was produced using [employer] dictation software. please excuse any grammatical, word or spelling errors.
[2022-12-11] MEDS: MORPHINE SULFATE ER 15 MG TABLET PO SCH ×2 (10:26→20:30)
[2022-12-11] MEDS: PREGABALIN 75 MG CAP PO SCH ×2 (10:30→15:23)
[2022-12-11] MEDS: MULTIVITAMINS, THERA 1 EACH TAB PO SCH (10:30)
[2022-12-11] MEDS: ASPIRIN 81 MG PO SCH (10:32)
[2022-12-11] MEDS: TICAGRELOR 90 MG TAB PO SCH ×2 (10:32→15:23)
[2022-12-11] MEDS: lisinopriL 10 MG TAB PO SCH (10:33)
[2022-12-11] MEDS: NYSTATIN 100,000 UNIT/GM POWD 15 GM TOPICAL SCH ×3 (10:34→20:30)
[2022-12-11 11:33] LABS: Glucose,Whole Blood 147 mg/dL (70-110)
--- NOTE | 2022-12-11 14:01 | P.PN ---
Subjective Progress Note Date: 12/11/22 Subjective: Patient seen and examined at bedside. No acute events overnight. Pertinent positives and negatives as discussed above, a complete review of systems was performed and all other systems are negative. Vitals Signs Reviewed. Vital signs reviewed and stable. General: Nontoxic, no distress and appears stated age. Derm: Skin warm and dry, normal coloration for ethnicity. Head: Atraumatic, normocephalic and symmetric. Eyes: EOMs intact, no lid lag, and anicteric sclera Mouth: no lip lesions, mucus membranes moist Cardiovascular: regular rate and rhythm with normal S1S2, no murmur, positive posterior tibial pulses bilaterally, and cap refill < 2 seconds. Lungs: Respirations even, regular, and unlabored on room air. Lungs CTA bilaterally, no rhonchi, no rales, no wheezing, and no accessory muscle usage. Abdominal: Abdominal dressing in place midabdomen with wound VAC. Mild excoriation beneath abdominal pannus Ext: ROM intact. No gross muscle atrophy, no edema, no contractures Neuro: Speech clear, face symmetrical and CN II-XII grossly intact with no noted focal neuro deficits Psych: Alert and oriented to person, place, time, and situation. Appropriate and pleasant affect. Data Reviewed Today: Pertinent Labs: Blood sugars ranging between 135-222 Imaging: No new imaging Assessment and Plan: Enterococcus faecalis Abdominal wound infection with surrounding abdominal wall cellulitis and abscess Status post I&D with washout and placement of Summer drain and wound VAC 12/06/22 Status post exploratory laparotomy with lysis of adhesions and placement of wound VAC on 10/27/22 Postoperative blood loss anemia, expected and stable finding Peripheral vascular disease status post stenting Insulin-dependent diabetes mellitus Hypertension Hyperlipidemia -Discussed management with Gen. surgery, patient possibly ready for discharge once wound VAC is approved by insurance -ID following, patient continued on IV Unasyn -Continue sliding scale insulin, Levemir 26 units -Holding diuretics -Reviewed home medications Thank you for allowing us to participate in the care of this pleasant patient. Do not hesitate to contact us with questions. Someone can be reached from the [facility] hospitalist group all hours of the day at [phone] or via perfect serve. Objective - Vital Signs Vital signs: Vital Signs Temp 98.4 F 12/11/22 07:11 Pulse 85 12/11/22 07:11 Resp 16 12/11/22 07:11 BP 158/75 12/11/22 07:11 Pulse Ox 97 12/11/22 07:11 FiO2 Intake & Output 12/10/22 12/11/22 12/11/22 18:59 06:59 18:59 Other: Voiding Method Toilet Toilet # Voids 3 4 1 - Labs CBC & Chem 7: 12/09/22 07:00 12/09/22 07:00 Labs: Abnormal Lab Results - Last 24 Hours (Table) 12/10/22 12/10/22 12/11/22 Range/Units 16:29 20:16 05:39 POC Glucose (mg/dL) 200 H 222 H 135 H (70-110) mg/dL 12/11/22 Range/Units 11:31 POC Glucose (mg/dL) 147 H (70-110) mg/dL
--- NOTE | 2022-12-11 15:02 | P.PN ---
Subjective Progress Note Date: 12/11/22 Principal diagnosis: Abdominal wound infection Patient is a 52-year-old female with a past medical history significant for small bowel obstruction secondary large incarcerated hernia with small bowel incarceration and this patient is status post expiratory laparotomy lysis of lesion and wound application on 10/27/2022 patient was subsequent presented to hospital with abdominal pain and drainage did have a CT with evidence of subcutaneous fluid layering suspicious for abscess status post surgical drainage On today's evaluation that is 12/11/2022, the patient is afebrile, the patient is breathing comfortably , the patient denies chest pain and no significant coug h, the patient denies nausea and vomiting , patient abdominal pain has decreased in intensity and no diarrhea. Patient did have a white count of 6.01 with a creatinine of 0.4 as of 12/09/2022, no blood draw today abdominal culture positive for anaerobic gram- positive cocci and Enterococcus faecalis. Objective - Vital Signs Vital signs: Vital Signs Temp 98.4 F 12/11/22 07:11 Pulse 85 12/11/22 07:11 Resp 16 12/11/22 07:11 BP 158/75 12/11/22 07:11 Pulse Ox 97 12/11/22 07:11 FiO2 Intake & Output 12/10/22 12/11/22 12/11/22 18:59 06:59 18:59 Other: Voiding Method Toilet Toilet # Voids 3 4 1 - Exam GENERAL DESCRIPTION: Middle-aged female lying in bed in no distress RESPIRATORY SYSTEM: Unlabored breathing , decreased breath sounds at bases HEART: S1 S2 regular rate and rhythm , ABDOMEN: Soft , abdominal wound covered with a wound VAC EXTREMITIES: No edema feet - Labs CBC & Chem 7: 12/09/22 07:00 12/09/22 07:00 Labs: Abnormal Lab Results - Last 24 Hours (Table) 12/10/22 12/10/22 12/11/22 Range/Units 16:29 20:16 05:39 POC Glucose (mg/dL) 200 H 222 H 135 H (70-110) mg/dL 12/11/22 Range/Units 11:31 POC Glucose (mg/dL) 147 H (70-110) mg/dL Assessment and Plan (1) Wound infection after surgery Current Visit: Yes Status: Acute Code(s): T81.49XA - INFECTION FOLLOWING A PROCEDURE, OTHER SURGICAL SITE, INIT SNOMED Code(s): 99955846 Plan: 1patient with abdominal wall abscess in this patient with recent surgery for an incarcerated hernia s/p resection now presenting the hospital with worsening drainage and pain with abnormal CT s/p debridement and a drainage of the fluid which are currently growing Enterococcus faecalis and And anaerobic gram- positive cocci. 2patient to continue with the Unasyn 3 g every 6 hours PICC line has been placed, plan is for a two-week course of antibiotic and close outpatient follow- up Dictation was produced using [employer] dictation software. please excuse any grammatical, word or spelling errors. Time with Patient: Less than 30
[2022-12-11] MEDS: ATORVASTATIN 40 MG TAB PO SCH (15:23)
[2022-12-11] MEDS: PANTOPRAZOLE 40 MG TABLET PO SCH (15:23)
--- NOTE | 2022-12-11 15:26 | P.PN ---
Subjective Progress Note Date: 12/11/22 CHIEF COMPLAINT: Abdominal wall fascial necrosis HISTORY OF PRESENT ILLNESS: Patient is postop day #5 status post excisional debridement of abdominal wall to the muscle and fascia with placement of Summer drain and application of wound VAC. Patient status post PICC line placement for IV antibiotics outpatient. She is tolerating diet. Wound VAC was changed yesterday and patient has increase in output. Patient does complain of pain at the wound. Afebrile. PHYSICAL EXAM: VITAL SIGNS: Reviewed GENERAL: Well-developed in no acute distress. HEENT: No sclera icterus. Extraocular movements grossly intact. Moist buccal mucosa. Head is atraumatic, normocephalic. Hears conversational speech. No nasal drainage. NECK: Supple without lymphadenopathy. CHEST: Non-labored respirations and equal bilateral excursions. CARDIOVASCULAR: Palpable 2+ radial pulses. ABDOMEN: Soft. Nondistended. Wound VAC in place. Bloody drainage noted in canister. MUSCULOSKELETAL: No clubbing or cyanosis. NEUROLOGIC: No focal or lateralizing signs. Cranial nerves II through XII grossly intact. PSYCH: Appropriate affect. Alert and oriented to person, place and time. SKIN: Well perfused. Good skin turgor. ASSESSMENT: 1. Abdominal wall fascial necrosis 2. Morbid obesity due to excess calories, BMI 34.1 3. Status post recent exploratory laparotomy for bowel obstruction 4. Coronary artery disease 5. Chronic antiplatelet therapy 6. History of recurrent small bowel obstruction 7. History of recurrent abdominal wall hernia 8. Chronic pain syndrome 9. Diabetic neuropathy 10. Diabetes type 2, insulin-dependent 11. Hypertensive heart disease with congestive heart failure 12. Hyperlipidemia 13. Migraines 14. History of MRSA 15. Peripheral vascular occlusive disease 16. Status post stent, right lower extremity 17. Generalized anxiety disorder 18. Panic disorder 19. Claustrophobia PLAN: -Anticipate discharge tomorrow -Awaiting final insurance authorization for wound -Discharge planning in progress -Recommend high protein diet with protein shakes -Social work for wound VAC and IV antibiotics at discharge and arranging homecare -Discharge antibiotics per infectious disease, Unasyn IV for 2 weeks Physician Jigsawyer note has been reviewed by physician. Signing provider agrees with the documented findings, assessment, and plan of care. Objective - Vital Signs Vital signs: Vital Signs Temp 98.1 F 12/11/22 14:00 Pulse 83 12/11/22 14:00 Resp 18 12/11/22 14:00 BP 174/77 12/11/22 14:00 Pulse Ox 97 12/11/22 07:11 FiO2 Intake & Output 12/10/22 12/11/22 12/11/22 18:59 06:59 18:59 Weight 95.708 kg Other: Voiding Method Toilet Toilet # Voids 3 4 1 - Labs CBC & Chem 7: 12/09/22 07:00 12/09/22 07:00 Labs: Abnormal Lab Results - Last 24 Hours (Table) 12/10/22 12/10/22 12/11/22 Range/Units 16:29 20:16 05:39 POC Glucose (mg/dL) 200 H 222 H 135 H (70-110) mg/dL 12/11/22 Range/Units 11:31 POC Glucose (mg/dL) 147 H (70-110) mg/dL
[2022-12-11 16:38] LABS: Glucose,Whole Blood 191 mg/dL (70-110)
[2022-12-11 20:12] LABS: Glucose,Whole Blood 181 mg/dL (70-110)
[2022-12-11] MEDS: INSULIN DETEMIR (LEVEMIR) 100 UNIT/ML SYR SQ SCH (20:29)
[2022-12-12] MEDS: HYDROcodone/APAP 10-325MG 1 EACH TAB PO PRN ×3 (03:16→16:20)
[2022-12-12 06:13] LABS: Glucose,Whole Blood 133 mg/dL (70-110)
[2022-12-12] MEDS: INSULIN ASPART (NovoLOG) 100 UNIT/ML VIAL SQ SCH ×3 (06:33→17:21)
[2022-12-12] MEDS: AMPICILLIN-SULBACTAM 3 GM in SODIUM CHLORIDE 0.9% 100 ML IVPB SCH ×3 (06:38→17:20)
[2022-12-12] MEDS: ASPIRIN 81 MG PO SCH (07:57)
[2022-12-12] MEDS: PREGABALIN 75 MG CAP PO SCH ×2 (07:57→16:20)
[2022-12-12] MEDS: lisinopriL 10 MG TAB PO SCH (07:57)
[2022-12-12] MEDS: TICAGRELOR 90 MG TAB PO SCH ×2 (07:58→16:20)
[2022-12-12] MEDS: MULTIVITAMINS, THERA 1 EACH TAB PO SCH (08:00)
[2022-12-12] MEDS: MORPHINE SULFATE ER 15 MG TABLET PO SCH (08:00)
[2022-12-12] MEDS: NYSTATIN 100,000 UNIT/GM POWD 15 GM TOPICAL SCH ×2 (08:13→16:20)
--- NOTE | 2022-12-12 11:05 | P.PN ---
Subjective Progress Note Date: 12/12/22 Subjective: Patient seen and examined at bedside. No acute events overnight. Pertinent positives and negatives as discussed above, a complete review of systems was performed and all other systems are negative. Vitals Signs Reviewed. Vital signs reviewed and stable. General: Nontoxic, no distress and appears stated age. Derm: Skin warm and dry, normal coloration for ethnicity. Head: Atraumatic, normocephalic and symmetric. Eyes: EOMs intact, no lid lag, and anicteric sclera Mouth: no lip lesions, mucus membranes moist Cardiovascular: regular rate and rhythm with normal S1S2, no murmur, positive posterior tibial pulses bilaterally, and cap refill < 2 seconds. Lungs: Respirations even, regular, and unlabored on room air. Lungs CTA bilaterally, no rhonchi, no rales, no wheezing, and no accessory muscle usage. Abdominal: Abdominal dressing in place midabdomen with wound VAC. Mild excoriation beneath abdominal pannus Ext: ROM intact. No gross muscle atrophy, no edema, no contractures Neuro: Speech clear, face symmetrical and CN II-XII grossly intact with no noted focal neuro deficits Psych: Alert and oriented to person, place, time, and situation. Appropriate and pleasant affect. Data Reviewed Today: Pertinent Labs: Blood sugars ranging between 133-191 Imaging: No new imaging Assessment and Plan: Enterococcus faecalis Abdominal wound infection with surrounding abdominal wall cellulitis and abscess Status post I&D with washout and placement of Summer drain and wound VAC 12/06/22 Status post exploratory laparotomy with lysis of adhesions and placement of wo und VAC on 10/27/22 Postoperative blood loss anemia, expected and stable finding Peripheral vascular disease status post stenting Insulin-dependent diabetes mellitus Hypertension Hyperlipidemia -Gen. surgery following, patient possibly ready for discharge once wound VAC is approved by insurance, likely today -ID following, patient continued on IV Unasyn, PICC line in place, will need 2 weeks of IV antibiotics -Continue sliding scale insulin, Levemir 26 units -Home medications reviewed Patient is medically optimized for discharge Thank you for allowing us to participate in the care of this pleasant patient. Do not hesitate to contact us with questions. Someone can be reached from the [facility] hospitalist group all hours of the day at [phone] or via perfect serve. Objective - Vital Signs Vital signs: Vital Signs Temp 98.6 F 12/12/22 07:07 Pulse 83 12/12/22 07:07 Resp 17 12/12/22 07:07 BP 150/77 12/12/22 07:07 Pulse Ox 96 12/12/22 09:13 FiO2 21 12/12/22 09:13 Intake & Output 12/11/22 12/12/22 12/12/22 18:59 06:59 18:59 Intake Total 100 Balance 100 Weight 95.708 kg Intake: Intake, IV Titration 100 Amount Ampicillin-Sulbactam 3 gm 100 In Sodium Chloride 0.9% 100 ml @ 200 mls/hr IVPB Q6HR [facility] Rx#:[id number] Other: Voiding Method Toilet Toilet # Voids 1 2 - Labs CBC & Chem 7: 12/09/22 07:00 12/09/22 07:00 Labs: Abnormal Lab Results - Last 24 Hours (Table) 12/11/22 12/11/22 12/11/22 Range/Units 11:31 16:38 20:11 POC Glucose (mg/dL) 147 H 191 H 181 H (70-110) mg/dL 12/12/22 Range/Units 06:11 POC Glucose (mg/dL) 133 H (70-110) mg/dL
[2022-12-12 11:10] LABS: Glucose,Whole Blood 172 mg/dL (70-110)
--- NOTE | 2022-12-12 14:49 | P.DS ---
Providers Date of admission: 12/04/22 21:41 Attending physician: Chacha Mckenna Consults: 12/05/22 17:57 Consult Physician Routine Consulting Provider: Geraldo Dean Consult Reason/Comments: medical management Do you want consulting provider notified?: Yes 12/06/22 10:45 Consult Physician Routine Consulting Provider: Ivett Sibley Consult Reason/Comments: Antibiotic management Do you want consulting provider notified?: Yes Primary care physician: Hua Posadas Hospital Course: Discharge diagnosis 1. Abdominal wall fascial necrosis 2. Morbid obesity due to excess calories, BMI 34.1 3. Status post recent exploratory laparotomy for bowel obstruction 4. Coronary artery disease 5. Chronic antiplatelet therapy 6. History of recurrent small bowel obstruction 7. History of recurrent abdominal wall hernia 8. Chronic pain syndrome 9. Diabetic neuropathy 10. Diabetes type 2, insulin-dependent 11. Hypertensive heart disease with congestive heart failure 12. Hyperlipidemia 13. Migraines 14. History of MRSA 15. Peripheral vascular occlusive disease 16. Status post stent, right lower extremity 17. Generalized anxiety disorder 18. Panic disorder 19. Claustrophobia Hospital Course This is a 52-year-old female with a history of small bowel obstruction and large incarcerated abdominal wall hernia with small and large bowel incarceration. Status post exploratory laparotomy with lysis of adhesions and incisional wound VAC on 10/27/22. Patient reports she had continued to have drainage from her incision site. Thursday she noted that the drainage was worse and there was a foul odor. And pelvis that showed phlegmonous change and gas within the anterior subcutaneous tissue with suspected layering. Findings favor infectious/inflammatory process with underlying abscess felt to be likely. Patient found have abdominal wall fascial necrosis. She is status post excisional debridement of abdominal wall to the muscle and fascia with placement of [place] drain and application of wound VAC. Patient tolerated surgery well. Her pain is controlled. She has PICC line in place for IV antibiotics for the next 2 weeks with Unasyn per infectious disease recommendations. Patient's wound VAC is in place and home care is set up. Patient is afebrile. Her pain is controlled. She is tolerating diet. She has been up and ambulating. Physician Admitting Representative note has been reviewed by physician. Signing provider agrees with the documented findings, assessment, and plan of care. Patient Condition at Discharge: Stable Plan - Discharge Summary Discharge Rx Participant: Yes New Discharge Prescriptions: New Nystatin 100,000 Unit/gm Powd [Mycostatin Powder] 1 applic TOPICAL TID 30 Days #1 each Continue Atorvastatin [Lipitor] 40 mg PO DAILY@1600 Insulin Aspart [NovoLOG Flexpen] See Protocol SQ TID-W/MEALS PRN #10 ml PRN Reason: Blood Sugar - High Aspirin 81 mg PO DAILY@0830 Melatonin 5 mg PO HS PRN PRN Reason: SLEEP Multivitamins, Thera [Multivitamin (formulary)] 1 tab PO DAILY@0830 Furosemide [Lasix] 20 mg PO DAILY@0830 Potassium Chloride ER [K-Dur 10] 10 meq PO DAILY@0830 Andrew/D3/Mag11/Zinc/Paint Mixer/Roque/Bor [Caltrate 600+D Plus Tablet] 1 tab PO BID@0830,1600 polyethylene glycoL 3350 [Miralax] 17 gm PO DAILY@0830 Omeprazole 20 mg PO DAILY@1600 Loratadine [Claritin] 10 mg PO DAILY PRN PRN Reason: Allergy Symptoms Insulin Glargine,Hum.rec.anlog [Basaglar Kwikpen U-100] 26 unit SQ HS Cholecalciferol [Vitamin D3 (25 Mcg = 1000 Iu)] 25 mcg PO DAILY@0830 Cyclobenzaprine [Flexeril] 5 mg PO TID PRN 30 Days #90 tab PRN Reason: Muscle Spasm Acetaminophen Tab [Tylenol] 1,000 mg PO Q6HR PRN #30 tablet PRN Reason: Pain Morphine Sulfate ER [Ms Contin] 15 mg PO Q12H 30 Days #60 tab HYDROcodone/APAP 7.5-325MG [[place] 7.5-325] 1 tab PO Q6H PRN 30 Days #120 tab PRN Reason: Pain Ticagrelor [Brilinta] 90 mg PO BID@0830,1600 Pregabalin [Lyrica] 75 mg PO BID@0830,1600 lisinopriL [Zestril] 10 mg PO DAILY@0830 Docusate [Colace] 100 mg PO BID@0830,1600 Discontinued Ibuprofen [Motrin] 600 mg PO Q8HR PRN #30 tab PRN Reason: Pain Discharge Medication List Atorvastatin [Lipitor] 40 mg PO DAILY@1600 03/26/21 [History] Insulin Aspart [NovoLOG Flexpen] See Protocol SQ TID-W/MEALS PRN #10 ml 04/29/21 [Rx] Aspirin 81 mg PO DAILY@82909/10/21 [History] Insulin Glargine,Hum.rec.anlog [Basaglar Kristineikpen U-100] 26 unit SQ HS 04/22/22 [History] Loratadine [Claritin] 10 mg PO DAILY PRN 04/22/22 [History] Melatonin 5 mg PO HS PRN 04/22/22 [History] Multivitamins, Thera [Multivitamin (formulary)] 1 tab PO DAILY@82907/23/22 [History] Cholecalciferol [Vitamin D3 (25 Mcg = 1000 Iu)] 25 mcg PO DAILY@82908/20/22 [History] Cyclobenzaprine [Flexeril] 5 mg PO TID PRN 30 Days #90 tab 10/08/22 [Rx] Andrew/D3/Mag11/Zinc/Paint Mixer/Roque/Bor [Caltrate 600+D Plus Tablet] 1 tab PO BID@829,159910/24/22 [History] Furosemide [Lasix] 20 mg PO DAILY@82910/24/22 [History] Potassium Chloride ER [K-Dur 10] 10 meq PO DAILY@82910/24/22 [History] Acetaminophen Tab [Tylenol] 1,000 mg PO Q6HR PRN #30 tablet 10/31/22 [Rx] HYDROcodone/APAP 7.5-325MG [[place] 7.5-325] 1 tab PO Q6H PRN 30 Days #120 tab 12/03/22 [Rx] Morphine Sulfate ER [Ms Contin] 15 mg PO Q12H 30 Days #60 tab 12/03/22 [Rx] Docusate [Colace] 100 mg PO BID@08,159912/04/22 [History] Omeprazole 20 mg PO DAILY@159912/04/22 [History] Pregabalin [Lyrica] 75 mg PO BID@829,159912/04/22 [History] Ticagrelor [Brilinta] 90 mg PO BID@0830,159912/04/22 [History] lisinopriL [Zestril] 10 mg PO DAILY@82912/04/22 [History] polyethylene glycoL 3350 [Miralax] 17 gm PO DAILY@12/04/23 [History] Nystatin 100,000 Unit/gm Powd [Mycostatin Powder] 1 applic TOPICAL TID 30 Days #1 each 12/10/22 [Rx] Follow up Appointment(s)/Referral(s): Chacha Mckenna MD [STAFF PHYSICIAN] - 01/06/23 Hua Posadas [Primary Care Provider] - 1 Week [facility], [REFERRING] - As Needed (Infusion will deliver diana whitfield 6-8p) [facility] [NON-STAFF] - As Needed Activity/Diet/Wound Care/Special Instructions: Wound Vac instructions Apply Adaptic over wound bed, then apply black wound vac sponge the entire length of wound including lucho drain Change Wound Vac MON, WED, FRI IV Unasyn antibiotics per ID service Discharge Disposition: HOME WITH HOME HEALTH SERVICES
[2022-12-12 15:30] VITALS: BP 151/78; PULSE 79; RESP 18; TEMP 98.4
[2022-12-12 16:05] LABS: Glucose,Whole Blood 172 mg/dL (70-110)
[2022-12-12] MEDS: PANTOPRAZOLE 40 MG TABLET PO SCH (16:20)
[2022-12-12] MEDS: ATORVASTATIN 40 MG TAB PO SCH (16:20)
--- NOTE | 2022-12-12 16:29 | P.PN ---
Subjective Progress Note Date: 12/12/22 Principal diagnosis: Abdominal wound infection Patient is a 52-year-old female with a past medical history significant for small bowel obstruction secondary large incarcerated hernia with small bowel incarceration and this patient is status post expiratory laparotomy lysis of lesion and wound application on 10/27/2022 patient was subsequent presented to hospital with abdominal pain and drainage did have a CT with evidence of subcutaneous fluid layering suspicious for abscess status post surgical drainage On today's evaluation that is 12/12/2022, the patient remains to be afebrile, the patient is breathing comfortably , the patient denies chest pain and no significant cough, the patient denies nausea and vomiting and patient abdominal pain has decreased in intensity and no diarrhea. Patient did have a white count of 6.01 with a creatinine of 0.4 as of 2022, no blood draw today abdominal culture positive for anaerobic gram-positive cocci and Enterococcus faecalis. Objective - Vital Signs Vital signs: Vital Signs Temp 98.4 F 12/12/22 12:13 Pulse 79 12/12/22 12:13 Resp 18 12/12/22 12:13 BP 151/78 12/12/22 12:13 Pulse Ox 94 L 12/12/22 12:13 FiO2 21 12/12/22 09:13 Intake & Output 12/11/22 12/12/22 12/12/22 18:59 06:59 18:59 Intake Total 100 Balance 100 Weight 95.708 kg Intake: Intake, IV Titration 100 Amount Ampicillin-Sulbactam 3 gm 100 In Sodium Chloride 0.9% 100 ml @ 200 mls/hr IVPB Q6HR [facility] Rx#:[id number] Other: Voiding Method Toilet Toilet # Voids 1 2 - Exam GENERAL DESCRIPTION: Middle-aged female lying in bed in no distress RESPIRATORY SYSTEM: Unlabored breathing , decreased breath sounds at bases HEART: S1 S2 regular rate and rhythm , ABDOMEN: Soft , abdominal wound covered with a wound VAC EXTREMITIES: No edema feet - Labs CBC & Chem 7: 12/09/22 07:00 12/09/22 07:00 Labs: Abnormal Lab Results - Last 24 Hours (Table) 12/11/22 12/11/22 12/12/22 Range/Units 16:38 20:11 06:11 POC Glucose (mg/dL) 191 H 181 H 133 H (70-110) mg/dL 12/12/22 Range/Units 11:09 POC Glucose (mg/dL) 172 H (70-110) mg/dL Assessment and Plan (1) Wound infection after surgery Current Visit: Yes Status: Acute Code(s): T81.49XA - INFECTION FOLLOWING A PROCEDURE, OTHER SURGICAL SITE, INIT SNOMED Code(s): 22266963 Plan: 1patient with abdominal wall abscess in this patient with recent surgery for an incarcerated hernia s/p resection now presenting the hospital with worsening drainage and pain with abnormal CT s/p debridement and a drainage of the fluid which are currently growing Enterococcus faecalis and And anaerobic gram- positive cocci. 2patient seemed to have a clinical improvement and will continue with the Unasyn 3 g every 6 hours 2 weeks and close outpatient follow-up Dictation was produced using [email or web address] dictation software. please excuse any grammatical, word or spelling errors. Time with Patient: Less than 30
[2022-12-13] MEDS ORDERED: FUROSEMIDE 20 MG TAB PO SCH (08:30)
== END 2022-12-12 22:13 | disposition home health service (06) | DRG 857 ==
LOC: EC 16:08 → 6NMEDSUR 21:40 → UNDOADMOB 21:40 → 4SSUR 21:41
PROVIDERS: ADMIT Surgery Plastic and Reconstructive Surgery; ATTEND Surgery Plastic and Reconstructive Surgery
PROC: 02HV33Z Insertion of Infusion Device into Superior Vena Cava, Percutaneous Approach (ICD-10-PCS; 2022-12-04)
PROC: 0KBL0ZZ Excision of Left Abdomen Muscle, Open Approach (ICD-10-PCS; principal; 2022-12-06 13:55)
DX: T81.41XA Infection following a procedure, superficial incisional surgical site, initial encounter (principal); D62 Acute posthemorrhagic anemia; L02.211 Cutaneous abscess of abdominal wall; L03.311 Cellulitis of abdominal wall; E11.40 Type 2 diabetes mellitus with diabetic neuropathy, unspecified; E11.51 Type 2 diabetes mellitus with diabetic peripheral angiopathy without gangrene; B95.2 Enterococcus as the cause of diseases classified elsewhere; I50.9 Heart failure, unspecified; E66.01 Morbid (severe) obesity due to excess calories; I11.0 Hypertensive heart disease with heart failure; G40.909 Epilepsy, unspecified, not intractable, without status epilepticus; Z79.4 Long term (current) use of insulin; Z28.310 Unvaccinated for COVID-19; Z68.34 Body mass index [BMI] 34.0-34.9, adult; M79.89 Other specified soft tissue disorders; E78.5 Hyperlipidemia, unspecified; M79.3 Panniculitis, unspecified; F40.240 Claustrophobia; F41.0 Panic disorder [episodic paroxysmal anxiety]; F41.1 Generalized anxiety disorder; G43.909 Migraine, unspecified, not intractable, without status migrainosus; G89.4 Chronic pain syndrome; I25.10 Atherosclerotic heart disease of native coronary artery without angina pectoris; I83.90 Asymptomatic varicose veins of unspecified lower extremity; K21.9 Gastro-esophageal reflux disease without esophagitis; M19.90 Unspecified osteoarthritis, unspecified site; Z79.82 Long term (current) use of aspirin; Z79.02 Long term (current) use of antithrombotics/antiplatelets; Z79.891 Long term (current) use of opiate analgesic; Z79.899 Other long term (current) drug therapy; Z86.14 Personal history of Methicillin resistant Staphylococcus aureus infection; Z87.442 Personal history of urinary calculi; Z95.820 Peripheral vascular angioplasty status with implants and grafts; Y83.8 Other surgical procedures as the cause of abnormal reaction of the patient, or of later complication, without mention of misadventure at the time of the procedure; Z87.891 Personal history of nicotine dependence; Z71.3 Dietary counseling and surveillance; Z88.6 Allergy status to analgesic agent; Z88.5 Allergy status to narcotic agent; Z88.8 Allergy status to other drugs, medicaments and biological substances
CPT/HCPCS: 36415; 36573; 74177; 80053; 83036; 83605; 83735; 85025; 85027; 87040; 87070; 87075; 87077; 87186; 87205; 94760; 96365; 96375; 99285

== ENCOUNTER → 2022-12-17 | Outpatient (CLI) | payer MEDICARE, OTHER ==
[2022-12-17 21:23] LABS: Basophils # (A) 0.07 X 10*3/uL (0.00-0.10); Basophils % (A) 0.8 %; Eosinophils # (A) 0.27 X 10*3/uL (0.04-0.35); Eosinophils % (A) 3.2 %; HCT 35.2 % (37.2-46.3); HGB 10.8 d/dL (12.0-15.0); Lymphocytes # (A) 2.84 X 10*3/uL (0.90-5.00); Lymphocytes % (A) 33.5 %; MCH 25.1 pg (27.0-32.0); MCHC 30.7 d/dL (32.0-37.0); MCV 81.7 FL (80.0-97.0); Monocytes # (A) 0.41 X 10*3/uL (0.20-1.00); Monocytes % (A) 4.8 %; NRBC Per 100 WBC 0 X 10*3/uL (0.00-0.01); Neutrophils # (A) 4.88 X 10*3/uL (1.80-7.70); Neutrophils % (A) 57.6 %; Platelet Count 322 X 10*3/uL (140-440); RBC 4.31 X 10*6/uL (4.10-5.20); RDW 13.8 % (11.5-14.5); WBC 8.48 X 10*3/uL (4.50-10.00)
[2022-12-17 21:28] LABS: ALT 18 U/L (8-44); AST 17 U/L (13-35); Albumin 4.1 d/dL (3.8-4.9); Albumin/Globulin Ratio 1.64 Ratio (1.60-3.17); Alkaline Phosphatase 118 U/L (41-126); Blood Urea Nitrogen 11.8 mg/dL (9.0-27.0); Calcium 9.4 mg/dL (8.7-10.3); Carbon Dioxide 25.2 mmol/L (21.6-31.8); Chloride 100 mmol/L (96-109); Globulin 2.5 d/dL (1.6-3.3); Glucose 245 mg/dL (70-110); Potassium 3.8 mmol/L (3.5-5.5); Sodium 137 mmol/L (135-145); Total Bilirubin 0.2 mg/dL (0.3-1.2); Total Protein 6.6 d/dL (6.2-8.2)
[2022-12-17 22:37] LABS: Erythrocyte Sedimentation Rate 39 mm/Hr (0-30)
== END | disposition home or self-care (01) ==
LOC: LABWHC1 15:59
PROVIDERS: ATTEND Internal Medicine Infectious Disease
DX: K65.1 Peritoneal abscess (principal); T81.40XD Infection following a procedure, unspecified, subsequent encounter; Y82.9 Unspecified medical devices associated with adverse incidents
CPT/HCPCS: 36415; 80053; 85025; 85652; 86140

== ENCOUNTER → 2023-01-23 | Outpatient (CLI) | payer OTHER ==
[2023-01-23 16:48] LABS: African American GFR (CKD) >90 (>60 ml/min/1.73 sqM); Blood Urea Nitrogen 19 mg/dL (7-17); Non-African American GFR(CKD) >90 (>60 ml/min/1.73 sqM)
--- NOTE | 2023-01-25 13:15 | CT ---
EXAMINATION TYPE: CT abdomen pelvis w con DATE OF EXAM: 01/23/2023 COMPARISON: 12/04/2022 INDICATION: Wound Vac. Infected surgical site. DLP: 1670 mGycm, Automated exposure control for dose reduction was used. CONTRAST: 100 cc mL of Isovue 300. Study performed with Oral Contrast TECHNIQUE: Axial images were obtained from above the diaphragm to the pubic rami in the axial plane a t 5 mm thick sections. Reconstructed images are reviewed on the computer in the coronal plane. FINDINGS: Limited CT sections are obtained the lung bases. The lung bases are clear. CT ABDOMEN: Liver: There is mild fatty infiltration liver. No discrete masses or cysts are evident. Spleen: Normal Pancreas: Normal Adrenal glands: There is mild prominence of the bilateral adrenal glands. On the left the medial limb measures 1.0 cm. The left adrenal gland is mildly prominent measuring 1.2 cm. Gallbladder: Surgically absent Kidneys: No masses are evident. No hydronephrosis is present. No cysts are present. Delayed images were obtained through the kidneys, which remain unremarkable. Aorta: Vascular calcification is within the aorta. Inferior vena cava: Normal. CT PELVIS: There is a small amount of air within this deep subcutaneous tissues adjacent to the abdom inal wall. This area was present previously and is diminished in size. Underlying abscess is not iden tified. Loops of bowel within the abdomen and pelvis are normal. Fecal debris is within the colon. There a re loops of bowel which are incompletely distended or lack oral contrast limiting their evaluation. Appendix: Not identified. No dilated tubular structure or inflammatory changes evident. Urinary bladder: Normal. Genitourinary structures: Uterus and ovaries are not identified. Osseous structures: No suspicious lytic or sclerotic lesions. Degenerative changes in the lower lumba r spine IMPRESSION: 1. Persistent subcutaneous air along the anterior pelvic wall diminished over the interval. No under lying abscess is identified. Phlegmon is likely present. Continued follow-up is recommended.
== END | disposition home or self-care (01) ==
LOC: RADCTMAIN 15:33
PROVIDERS: ATTEND Surgery Plastic and Reconstructive Surgery
DX: T81.41XA Infection following a procedure, superficial incisional surgical site, initial encounter (principal); K65.1 Peritoneal abscess
CPT/HCPCS: 82565; 84520; 74177; 36415; Q9967

== ENCOUNTER → 2023-01-28 | Outpatient (CLI) | payer OTHER ==
[2023-01-28 12:04] VITALS: BP 180/73; PULSE 105; RESP 16; TEMP 98
--- NOTE | 2023-01-28 14:59 | P.PAINPG ---
PQRS Measure Charge Sheet Comment: A 52 yr old female with a history of severe and chronic LBP secondary to lumbar DDD and spondylosis with facet arthropathy without myelopathy presents today for medication refills. Pain level is provoked at 6/10 in intensity, constant, localized in the mid to lower R lumbar spine, tingling in character w shooting towards the RLE. Pain is provoked by walking/ standing for periods of 10 min or more. Pain is alleviated with medications, topicals, heat, ice, PT in 2012 but stopped due to intractable pain, use of a cane for ambulatory assistance, reclining, repositioning and rest. Interventional pain procedures completed include YESSENIA T7-8 x1, BL RFA L3-L5 (Jun 2022) Patient is currently on MS ER 15mg #60, [place] 7.5/325mg #120, Lyrica 75mg #60, Flexeril, Lidoderm Patient denies any side effects of the medication(s), denies excessive drowsiness or sleepiness, denies suicidal ideation and reports that the current pain medication is helping to control the pain and improve activities of daily living. Patient denies any motor or sensory deficits. Patient denies any fever or night sweats, denies any change in the bowel movements or urination. Physical Examination: -Constitutional: Cooperative. Not in acute distress . - Neurologic: Cranial nerve II to XII intact. No focal neurological deficits. - Psychatric: Alert & oriented x 3. Matching mood & appropriate affect. Judgment and insight intact. - Musculoskeletal: Cervical spine: Muscle bulk/ tone/ strength in the bilateral upper extremities normal Vertebral body tenderness to palpation over Spurling test positive Distraction test positive Facet loading test positive TTP Thoracic spine Muscle bulk / tone/ strength in the bilateral paraspinal muscles normal Vertebral body tender to palpation over Facet loading test positive TTP Lumbar spine: Motor bulk/ tone/ strength lower extremities , thigh and legs : 5/5 Deep tendon reflexes : Normal Knee Jerk. Normal Ankle Jerk . Vertebral body tenderness to palpation over Lumbar Facet Loading Test positive TTP over BL L4-L5, L5-S1 facets Straight Leg Raise: positive at 30 degrees right side/ left side Gaenslen's Test positive Sacral spine : Severe tenderness over the Sacroiliac joint: right side / left side Range of motion: Flexion of the lumbar spine <60 degrees Range of motion: Extension of the lumbar spine <20 degrees Gaenslen's Test positive right side / left side Gato test: positive right side / left side Thigh Thrust Test positive right side / left side Sacral Thrust Test positive right side / left side Assessment and plan: Chronic LBP secondary to lumbar DDD, spondylosis with facet arthropathy without myelopathy Chronic and current use of high-risk medication (Opioids). The patient was counseled about risk of opioid use, psychological risk associated with opioids and was orally counseled to not overuse , divert or sell medications. Pt is to store medication in a safe location. The patient is counseled against driving while using narcotic medications and also not to use alcohol or any illicit recreational drugs. Patient verbalized understanding that the lack of compliance will result in failure to renew narcotic prescription(s) as well as possible discharge from the clinic Diagnoses, prognosis and treatment options including but not limited to physical therapy, surgical interventions, interventional therapies and medication management including narcotics and adjuvant medication were discussed. All patient questions answered MAPS reviewed and it was appropriate. Will check UDS at next visit. Prescription refill for MS ER 15mg #60, [place] 7.5/325mg #120 w 1 RF I have spent less than 30 minutes on patient care today. Dr Ashton was available by phone for the evaluation of this patient. The time was used to review the medical records including relevant urine studies and Prescription history (MAPs), review of the available imaging, evaluation and examination of the patient, coordination of care with the medical staff and if applicable referring physicians, as well as creation of the medical record PQRS Narrative: Smoking Status Current every day smoker Narcotic Agreement Date Signed 04/23/22 Hx Alcohol Use (MH) Yes: RARE Home Medications: Ambulatory Orders Atorvastatin [Lipitor] 40 mg PO DAILY@1600 03/26/21 Insulin Aspart [NovoLOG Flexpen] See Protocol SQ TID-W/MEALS PRN #10 ml 04/29/21 Aspirin 81 mg PO DAILY@0830 09/10/21 Insulin Glargine,Hum.rec.anlog [Basaglar Kwikpen U-100] 26 unit SQ HS 04/22/22 Loratadine [Claritin] 10 mg PO DAILY PRN 04/22/22 Melatonin 5 mg PO HS PRN 04/22/22 Multivitamins, Thera [Multivitamin (formulary)] 1 tab PO DAILY@82907/23/22 Cholecalciferol [Vitamin D3 (25 Mcg = 1000 Iu)] 25 mcg PO DAILY@0830 08/20/22 Cyclobenzaprine [Flexeril] 5 mg PO TID PRN 30 Days #90 tab 10/08/22 Andrew/D3/Mag11/Zinc/Director Of Officiating/Roque/Bor [Caltrate 600+D Plus Tablet] 1 tab PO BID@0830,1600 10/24/22 Furosemide [Lasix] 20 mg PO DAILY@82910/24/22 Potassium Chloride ER [K-Dur 10] 10 meq PO DAILY@82910/24/22 Acetaminophen Tab [Tylenol] 1,000 mg PO Q6HR PRN #30 tablet 10/31/22 Docusate [Colace] 100 mg PO BID@0830,159912/04/22 Omeprazole 20 mg PO DAILY@159912/04/22 Pregabalin [Lyrica] 75 mg PO BID@0830,159912/04/22 Ticagrelor [Brilinta] 90 mg PO BID@0830,159912/04/22 lisinopriL [Zestril] 10 mg PO DAILY@82912/04/22 polyethylene glycoL 3350 [Miralax] 17 gm PO DAILY@82912/04/22 Nystatin 100,000 Unit/gm Powd [Mycostatin Powder] 1 applic TOPICAL TID 30 Days #1 each 12/10/22 HYDROcodone/APAP 7.5-325MG [[place] 7.5-325] 1 tab PO Q6H PRN 30 Days #120 tab 01/28/23 HYDROcodone/APAP 7.5-325MG [[place] 7.5-325] 1 tab PO Q6H PRN 30 Days #120 tab 01/28/23 Morphine Sulfate ER [Ms Contin] 15 mg PO BID 30 Days #60 tab 01/28/23 Morphine Sulfate ER [Ms Contin] 15 mg PO Q12H 30 Days #60 tab 01/28/23 Controlled Substance Measures - Controlled Substance Measures Is patient prescribed a controlled substance at discharge?: Yes When asked, does pt state using other controlled substances?: No If prescribed controlled substance>3 days was MAPS reviewed?: Yes
== END ==
LOC: PNWHC3 11:28
PROVIDERS: ATTEND Specialist
DX: M51.37 Other intervertebral disc degeneration, lumbosacral region (principal); M47.817 Spondylosis without myelopathy or radiculopathy, lumbosacral region; G89.29 Other chronic pain; F17.200 Nicotine dependence, unspecified, uncomplicated; M54.50 Low back pain, unspecified; Z79.891 Long term (current) use of opiate analgesic; Z79.82 Long term (current) use of aspirin; Z91.018 Allergy to other foods; Z88.6 Allergy status to analgesic agent; Z88.8 Allergy status to other drugs, medicaments and biological substances; Z88.5 Allergy status to narcotic agent
CPT/HCPCS: 99211

== ENCOUNTER → 2023-03-17 | Outpatient (CLI) | payer OTHER ==
[2023-03-17 12:01] VITALS: BP 178/79; PULSE 89; RESP 16; TEMP 97.8
--- NOTE | 2023-03-17 13:01 | P.PAINPG ---
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 Pain level is provoked at 6/10 in intensity, constant, localized in the mid to lower R lumbar spine, p redominantly axial, tingling in character w occasional shooting towards the RLE. Pain is provoked by walking/ standing for periods of 10 min or more. Pain is alleviated with medications, topicals, heat, ice, PT in 2012 but stopped due to intractable pain, use of a cane for ambulatory assistance, reclining, repositioning and rest. Oswestry axial pain score of 28. Interventional pain procedures completed include YESSENIA T7-8 x1, BL RFA L3-L5 (Jun 2022) Patient is currently on MS ER 15mg #60, [place] 7.5/325mg #120, Lyrica 75mg #60, Flexeril, Lidoderm Patient denies any side effects of the medication(s), denies excessive drowsiness or sleepiness, denies suicidal ideation and reports that the current pain medication is helping to control the pain and improve activities of daily living. Patient denies any motor or sensory deficits. Patient denies any fever or night sweats, denies any change in the bowel movements or urination. Physical Examination: -Constitutional: Cooperative. Not in acute distress . - Neurologic: Cranial nerve II to XII intact. No focal neurological deficits. - Psychatric: Alert & oriented x 3. Matching mood & appropriate affect. Judgment and insight intact. - Musculoskeletal: Cervical spine: Muscle bulk/ tone/ strength in the bilateral upper extremities normal Vertebral body tenderness to palpation over Spurling test positive Distraction test positive Facet loading test positive TTP Thoracic spine Muscle bulk / tone/ strength in the bilateral paraspinal muscles normal Vertebral body tender to palpation over Facet loading test positive TTP Lumbar spine: Motor bulk/ tone/ strength lower extremities , thigh and legs : 5/5 Deep tendon reflexes : Normal Knee Jerk. Normal Ankle Jerk . Vertebral body tenderness to palpation over L4 Lumbar Facet Loading Test positive Straight Leg Raise: positive at 30 degrees right side/ left side Gaenslen's Test positive Sacral spine : Severe tenderness over the Sacroiliac joint: right side / left side Range of motion: Flexion of the lumbar spine <60 degrees Range of motion: Extension of the lumbar spine <20 degrees Gaenslen's Test positive right side / left side Gato test: positive right side / left side Thigh Thrust Test positive right side / left side Sacral Thrust Test positive right side / left side Imaging: MRI noncontrast of the lumbar spine from 03/18/21 reviewed Assessment and plan: Chronic LBP secondary to lumbar DDD, spondylosis with facet arthropathy without myelopathy Recommendation of R TFESI L4-L5 #1. Patient to need a series of injections for optimal pain relief. Risks, benefits of procedure discussed and patient verbalized understanding. Protocol for discontinuation/continuation of medications surrounding procedure discussed. Chronic and current use of high-risk medication (Opioids). The patient was counseled about risk of opioid use, psychological risk associated with opioids and was orally counseled to not overuse , divert or sell medications. Pt is to store medication in a safe location. The patient is counseled against driving while using narcotic medications and also not to use alcohol or any illicit recreational drugs. Patient verbalized understanding that the lack of compliance will result in failure to renew narcotic prescription(s) as well as possible discharge from the clinic Diagnoses, prognosis and treatment options including but not limited to physical therapy, surgical interventions, interventional therapies and medication management including narcotics and adjuvant medication were discussed. All patient questions answered MAPS reviewed and it was appropriate. UDS collected 03/17/23. Prescription refill for MS ER 15mg #60, [place] 7.5/325mg #120 w 1 RF I have spent less than 30 minutes on patient care today. Dr Ashton was available by phone for the evaluation of this patient. The time was used to review the medical records including relevant urine studies and Prescription history (MAPs), review of the available imaging, evaluation and examination of the patient, coordination of care with the medical staff and if applicable referring physicians, as well as creation of the medical record PQRS Narrative: Smoking Status Current every day smoker Narcotic Agreement Date Signed 04/23/22 Hx Alcohol Use (MH) Yes: RARE Home Medications: Ambulatory Orders Atorvastatin [Lipitor] 40 mg PO DAILY@1600 03/26/21 Insulin Aspart [NovoLOG Flexpen] See Protocol SQ TID-W/MEALS PRN #10 ml 04/29/21 Aspirin 81 mg PO DAILY@0830 09/10/21 Insulin Glargine,Hum.rec.anlog [Basaglar Kwikpen U-100] 26 unit SQ HS 04/22/22 Loratadine [Claritin] 10 mg PO DAILY PRN 04/22/22 Melatonin 5 mg PO HS PRN 04/22/22 Multivitamins, Thera [Multivitamin (formulary)] 1 tab PO DAILY@0830 07/23/22 Cholecalciferol [Vitamin D3 (25 Mcg = 1000 Iu)] 25 mcg PO DAILY@82908/20/22 Cyclobenzaprine [Flexeril] 5 mg PO TID PRN 30 Days #90 tab 10/08/22 Andrew/D3/Mag11/Zinc/Water Operator/Roque/Bor [Caltrate 600+D Plus Tablet] 1 tab PO BID@0830,159910/24/22 Furosemide [Lasix] 20 mg PO DAILY@82910/24/22 Potassium Chloride ER [K-Dur 10] 10 meq PO DAILY@82910/24/22 Acetaminophen Tab [Tylenol] 1,000 mg PO Q6HR PRN #30 tablet 10/31/22 Docusate [Colace] 100 mg PO BID@0830,159912/04/22 Omeprazole 20 mg PO DAILY@159912/04/22 Pregabalin [Lyrica] 75 mg PO BID@0830,159912/04/22 Ticagrelor [Brilinta] 90 mg PO BID@0830,159912/04/22 lisinopriL [Zestril] 10 mg PO DAILY@82912/04/22 polyethylene glycoL 3350 [Miralax] 17 gm PO DAILY@82912/04/22 Nystatin 100,000 Unit/gm Powd [Mycostatin Powder] 1 applic TOPICAL TID 30 Days #1 each 12/10/22 HYDROcodone/APAP 7.5-325MG [[place] 7.5-325] 1 tab PO Q6H PRN 30 Days #120 tab 03/17/23 HYDROcodone/APAP 7.5-325MG [[place] 7.5-325] 1 tab PO Q6H PRN 30 Days #120 tab 03/17/23 Morphine Sulfate ER [Ms Contin] 15 mg PO BID 30 Days #60 tab 03/17/23 Morphine Sulfate ER [Ms Contin] 15 mg PO Q12H 30 Days #60 tab 03/17/23 Controlled Substance Measures - Controlled Substance Measures Is patient prescribed a controlled substance at discharge?: Yes When asked, does pt state using other controlled substances?: No If prescribed controlled substance>3 days was MAPS reviewed?: Yes
== END ==
LOC: PNWHC3 10:50
PROVIDERS: ATTEND Specialist
DX: M51.36 Other intervertebral disc degeneration, lumbar region (principal); M47.816 Spondylosis without myelopathy or radiculopathy, lumbar region; F17.200 Nicotine dependence, unspecified, uncomplicated; Z88.6 Allergy status to analgesic agent; Z88.8 Allergy status to other drugs, medicaments and biological substances; Z91.018 Allergy to other foods
CPT/HCPCS: 80307; G0463; 99212

== ENCOUNTER 2023-04-07 07:46 | Day surgery (SDC) | payer OTHER ==
[2023-04-01 08:05] VITALS: BMI 32.6
[~2023-04-07 07:46] MED LIST changes: -LIDOCAINE 1% (10MG/ML) FOR IV START INTRADERMA PRN
[2023-04-07 08:26] LABS: Glucose,Whole Blood 131 mg/dL (70-110)
[2023-04-07 08:31] VITALS: TEMP 97
[2023-04-07] MEDS ORDERED: IOPAMIDOL M200 10 ML VIAL ONE (09:11)
[2023-04-07] MEDS ORDERED: methylPREDNISolone ACETATE 40 MG/ML 1 ML VIAL ONE (09:11)
--- NOTE | 2023-04-07 09:18 | P.PCN ---
Date of Procedure: 04/07/23 Procedure(s) Performed: PREOPERATIVE DIAGNOSIS: 1-Lumbar radiculopathy . 2-lumbar degenerative disc disease. 3-lumbar spondylosis with lumbar facet arthropathy without myelopathy POSTOPERATIVE DIAGNOSIS: 1-lumbar radiculopathy. 2-lumbar degenerative disc disease. 3-lumbar spondylosis with facet arthropathy without myelopathy PROCEDURE 1. Transforaminal epidural steroid injection under fluoroscopic guidance at right L4-5 level. (Fluoroscopy images stored on file in the radiology Department ) 2. Lumbar epidurogram . ANESTHESIA: Local with 1% lidocaine 3 ml. EBL: Minimal PROCEDURE INDICATION: The patient with low back pain and radiculopathy symptoms unresponsive to conservative treatment. PROCEDURE DESCRIPTION / TECHNIQUE: The patient was seen and identified in the preoperative area. Risks, benefits, complications, and alternatives were discussed with the patient. The patient agreed to proceed with the procedure and signed the consent. IV was started, and vital signs were stable. Patient was taken to the OR and time out was completed. The patient was placed in the prone position on procedure table and a pillow was placed under the abdomen to reduce lumbar lordosis. The lumbosacral area was prepped and draped in the usual sterile fashion. Critical pause was taken. Vital signs were closely monitored during the procedure. Using oblique fluoroscopy, the chin of the ``Mauro dog at right L4-5 level was identified, and the skin and deeper tissues just below was localized with 1% lidocaine. Subsequently, a 22-gauge 3.5-inch spinal needle was advanced under a tunneled view fluoroscopic guidance just underneath the chin of the `Cobyy dog at the right L4-5 Under lateral fluoroscopy, the needle was then advanced to the posterior border of the interforaminal space. After negative aspiration of CSF and blood and with no paresthesias, 1 mL Isovue 200 contrast dye was injected excellent epidurogram and outlining of the nerve root Subsequently, 3 mL of block solution containing 40 mg Depo-Medrol and 2 mL of 0.9% normal saline PF was injected. Needle was removed . At the end of the procedure, skin was cleansed, and bandages were applied. COMPLICATIONS:none DISPOSITION / PLANS: The patient was placed in a supine position and transferred to the recovery area in a stable condition for observation. There was no evidence of lower extremity motor or sensory deficit after the procedure. Patient was discharged from the recovery room after meeting discharge criteria. Home discharge instructions were given to the patient by the staff. The patient was reexamined prior to discharge.
[2023-04-07 09:39] LABS: Glucose,Whole Blood 141 mg/dL (70-110)
--- NOTE | 2023-04-07 10:06 | FL ---
Fluoroscopy INDICATION: Pain FINDINGS: Fluoroscopy time: 5.5 seconds. Total dose area product (DAP) in uGy*m?, mGy*cm? (or similar): 0.95727 Images obtained: 2. IMPRESSION: 1. Documentation of fluoroscopy.
[2023-04-07 10:13] VITALS: BP 110/70; PULSE 84; RESP 18
== END 2023-04-07 10:09 | disposition home or self-care (01) ==
LOC: ORPAIN 07:46
PROVIDERS: ATTEND Specialist
DX: M51.16 Intervertebral disc disorders with radiculopathy, lumbar region (principal); M47.26 Other spondylosis with radiculopathy, lumbar region; Z88.6 Allergy status to analgesic agent; Z88.8 Allergy status to other drugs, medicaments and biological substances; Z91.018 Allergy to other foods
CPT/HCPCS: 64483; J1030; Q9966

== ENCOUNTER 2023-06-02 22:36 | Inpatient (IN) | payer MEDICARE, OTHER ==
[2023-06-02 23:54] LABS: Basophils # (A) 0.1 k/uL (0-0.2); Basophils % (A) 1 %; Eosinophils # (A) 0.2 k/uL (0-0.7); Eosinophils % (A) 2 %; HCT 39.6 % (34.0-46.0); HGB 13.5 gm/dL (11.4-16.0); Lymphocytes # (A) 1.6 k/uL (1.0-4.8); Lymphocytes % (A) 12 %; MCH 28.1 pg (25.0-35.0); MCV 82.7 fL (80.0-100.0); Mean Platelet Volume 8.7; Monocytes # (A) 0.4 k/uL (0-1.0); Monocytes % (A) 3 %; Neutrophils # (A) 10.8 k/uL (1.3-7.7); Neutrophils % (A) 82 %; Platelet Count 211 k/uL (150-450); RBC 4.79 m/uL (3.80-5.40); RDW 14.4 % (11.5-15.5); WBC 13.2 k/uL (3.8-10.6)
[2023-06-03 00:02] LABS: ALT 39 U/L (4-34); AST 31 U/L (14-36); African American GFR (CKD) >90 (>60 ml/min/1.73 sqM); Albumin 4.5 g/dL (3.5-5.0); Alkaline Phosphatase 146 U/L (38-126); Amylase 55 U/L (30-110); Anion Gap 12 mmol/L; Blood Urea Nitrogen 17 mg/dL (7-17); Calcium 9.7 mg/dL (8.4-10.2); Carbon Dioxide 23 mmol/L (22-30); Chloride 99 mmol/L (98-107); Glucose 259 mg/dL (74-99); Lipase 86 U/L (23-300); Non-African American GFR(CKD) >90 (>60 ml/min/1.73 sqM); Potassium 4.2 mmol/L (3.5-5.1); Sodium 134 mmol/L (137-145); Total Bilirubin 0.6 mg/dL (0.2-1.3); Total Protein 7.2 g/dL (6.3-8.2)
[2023-06-03] MEDS: MORPHINE SULFATE 4 MG/ML SYRINGE IVP STA (00:02)
[2023-06-03] MEDS: PANTOPRAZOLE 40 MG/10 ML VIAL IVP STA (00:02)
[2023-06-03] MEDS: ONDANSETRON 4 MG/2 ML VIAL IVP STA (00:03)
[2023-06-03] MEDS: SODIUM CHLORIDE 0.9% 1,000 ML IV STA (00:03)
[2023-06-03 00:05] LABS: INR 0.9 (<1.2); Partial Thromboplastin Time 25.2 sec (22.0-30.0); Prothrombin Time 10.4 sec (10.0-12.5)
--- NOTE | 2023-06-03 00:36 | ED ---
General Adult HPI - General Chief complaint: Abdominal Pain Stated complaint: abd pain Time Seen by Provider: 06/02/23 22:42 Source: patient, RN notes reviewed, old records reviewed Mode of arrival: wheelchair Limitations: no limitations - History of Present Illness Initial comments: Is a 52-year-old female who presents emergency department complaining of abdominal pain. Has a history of diabetes, hypertension, hyperlipidemia, bowel obstructions, multiple abdominal surgeries. Presenting with intermittent lower abdominal pain for the last day. States it is worse over the last day. Denies any change in bowel movements, nausea or vomiting. Denies any fevers. No urinary complaints. No vaginal discharge or bleeding. No chest pain or shortness of breath. Presents for further evaluation. States pain is primarily in the right lower quadrant. Presents for further evaluation. Has still been tolerating oral intake. - Related Data Home Medications Medication Instructions Recorded Confirmed Atorvastatin [Lipitor] 40 mg PO DAILY@159903/26/21 04/07/23 Aspirin 81 mg PO DAILY@82909/10/21 04/07/23 Insulin Glargine,Hum.rec.anlog 26 unit SQ HS 04/22/22 04/07/23 [Basaglar Kwikpen U-100] Loratadine [Claritin] 10 mg PO DAILY PRN 04/22/22 04/07/23 Melatonin 5 mg PO HS PRN 04/22/22 04/07/23 Multivitamins, Thera [Multivitamin 1 tab PO DAILY@82907/23/22 04/07/23 (formulary)] Cholecalciferol [Vitamin D3 (25 25 mcg PO DAILY@82908/20/22 04/07/23 Mcg = 1000 Iu)] Furosemide [Lasix] 20 mg PO DAILY@82910/24/22 04/07/23 Potassium Chloride ER [K-Dur 10] 10 meq PO DAILY@82910/24/22 04/07/23 Docusate [Colace] 100 mg PO BID@0830,159912/04/22 04/07/23 Omeprazole 20 mg PO DAILY@159912/04/22 04/07/23 Ticagrelor [Brilinta] 90 mg PO BID@0830,1600 12/04/22 04/07/23 lisinopriL [Zestril] 10 mg PO DAILY@30 12/04/22 04/07/23 Lidocaine 4% Liquid Topical 1 dose TOPICAL DIRECTED PRN 03/31/23 04/07/23 Previous Rx's Medication Instructions Recorded Insulin Aspart [NovoLOG Flexpen] See Protocol SQ TID-W/MEALS PRN 04/29/21 #10 ml Cyclobenzaprine [Flexeril] 5 mg PO TID PRN 30 Days #90 tab 10/08/22 Nystatin 100,000 Unit/gm Powd 1 applic TOPICAL TID 30 Days #1 12/10/22 [Mycostatin Powder] each HYDROcodone/APAP 7.5-325MG [[place] 1 tab PO Q6H PRN 30 Days #120 tab 03/17/23 7.5-325] Morphine Sulfate ER [Ms Contin] 15 mg PO Q12H 30 Days #60 tab 03/17/23 Allergies Allergy/AdvReac Type Severity Reaction Status Date / Time raspberry Allergy Severe throat Verified 04/07/23 08:21 swelling, buprenorphine [From Suboxone] Allergy Swelling Verified 04/07/23 08:21 duloxetine [From Cymbalta] Allergy Confusion/s Verified 04/07/23 08:21 eizures gabapentin Allergy Swelling Verified 04/07/23 08:21 naloxone [From Suboxone] Allergy Swelling Verified 04/07/23 08:21 NSAIDS (Non-Steroidal Allergy Unknown Verified 04/07/23 08:21 Anti-Inflamma Childhood Review of Systems ROS Statement: Those systems with pertinent positive or pertinent negative responses have been documented in the HPI. Review of Systems: CONST: Denies fever EYES: Denies blurry vision ENT: Denies nasal congestion C/V: Denies Chest pain RESP: Denies shortness of breath GI: Endorses abdominal pain : Denies dysuria SKIN: Denies rash. MSK: Denies joint pain. NEURO: Denies headache ROS Other: All systems not noted in ROS Statement are negative. Past Medical History Past Medical History: Diabetes Mellitus, GERD/Reflux, Hyperlipidemia, Hypertension, Osteoarthritis (OA), Seizure Disorder Additional Past Medical History / Comment(s): Hx bowel obstruction, kidney stones. migraines, last seizure 2011-due to cymbalta, varicose veins, rt lower leg edema, abdominal hernia History of Any Multi-Drug Resistant Organisms: None Reported Date of last positivie culture/infection: 2012 MDRO Source:: stomach mesh Past Surgical History: Back Surgery, Bladder Surgery, Section, Cholecystectomy, Hernia Repair, Hysterectomy, Orthopedic Surgery, Tonsillectomy Additional Past Surgical History / Comment(s): Ablation of lumbar nerve, COLON OSCOPY. stent rt leg, hernia repair with mesh(mesh later removed due to infection), arthroscopy left knee, multiple procedures forlysis of adhesions Past Anesthesia/Blood Transfusion Reactions: No Reported Reaction Additional Past Anesthesia/Blood Transfusion Reaction / Comment(s): Claustrophobia. Date of Last Stent Placement:: 01/04/2021 Past Psychological History: Anxiety, Panic Disorder Smoking Status: Former smoker - Past Family History Mother Family Medical History: Cancer Additional Family Medical History / Comment(s): Mother had breast cancer Father Family Medical History: Cancer Additional Family Medical History / Comment(s): Father at 42 yrs of age from agent orange exposure. General Exam - General Exam Comments Initial Comments: General: Peers in mild to moderate distress secondary to abdominal pain. HEAD: Normal with no signs of head trauma. EYES: PERRLA, EOMI, conjunctiva normal, no discharge. ENT: Hearing grossly intact, normal oropharynx. RESPIRATORY: Clear breath sounds bilaterally. No wheezes, rales, or rhonchi. C/V: Regular rate and rhythm. S1 and S2 auscultated, no edema, peripheral pulses 2+ and intact throughout ABD: Abdomen is soft, nondistended. Tender to palpation primarily periumbilically and in the right lower quadrant. No guarding. No rebound tenderness. No peritoneal signs. EXT: Normal range of motion, no obvious deformity SKIN: No rashes or lesions observed on exposed skin. NEURO: Alert and oriented x 4. Limitations: no limitations Course Vital Signs 06/02/23 22:37 Temperature 98.5 F Pulse Rate 98 Respiratory 16 Rate Blood Pressure 184/83 O2 Sat by Pulse 96 Oximetry Medical Decision Making - Medical Decision Making Was pt. sent in by a medical professional or institution (, PA, BRUISE TRIMMER, urgent care, hospital, or skilled nursing...) When possible be specific @ -No Did you speak to anyone other than the patient for history (EMS, parent, family, police, friend...)? What history was obtained from this source @ -No Did you review nursing and triage notes (agree or disagree)? Why? @ -I reviewed and agree with nursing and triage notes Were old charts reviewed (outside hosp., previous admission, EMS record, old EKG, old radiological studies, urgent care reports/EKG's, skilled nursing records)? Report findings @ -Old charts reviewed Differential Diagnosis (chest pain, altered mental status, abdominal pain women, abdominal pain men, vaginal bleeding, weakness, fever, dyspnea, syncope, headache, dizziness, GI bleed, back pain, seizure, CVA, palpatations, mental health, musculoskeletal)? @ -Differential Abdominal Pain Women: Appendicitis, Cholecystitis, diverticulosis, ischemic bowel, pancreatitis, hepatitis, UTI, gastroenteritis, AAA, incarcerated hernia, bowel obstruction, constipation, inflammatory bowel, hepatitis, peptic ulcer disease, splenic infarction, perforated viscus, vulvitis, ovarian torsion, PID, kidney stone, placenta abruption, this is not meant to be an all-inclusive list EKG interpreted by me (3pts min.). @ -As above X-rays interpreted by me (1pt min.). @ -None done CT interpreted by me (1pt min.). @ -CT abdomen pelvis shows findings concerning for small bowel obstruction. U/S interpreted by me (1pt. min.). @ -None done What testing was considered but not performed or refused? (CT, X-rays, U/S, labs)? Why? @ -None What meds were considered but not given or refused? Why? @ -None Did you discuss the management of the patient with other professionals (professionals i.e. , PA, BRUISE TRIMMER, lab, RT, psych nurse, social service agency director, acid bleacher, teacher, air control/anti air warfare officer, case packer and sealer)? Give summary @ -Discussed with Dr. Brandon who accepted the admission. Was smoking cessation discussed for >3mins.? @ -No Was critical care preformed (if so, how long)? @ -No Were there social determinants of health that impacted care today? How? (Homelessness, low income, unemployed, alcoholism, drug addiction, transportation, low edu. Level, literacy, decrease access to med. care, senior living, rehab)? @ -No Was there de-escalation of care discussed even if they declined (Discuss DNR or withdrawal of care, Hospice)? DNR status @ -No What co-morbidities impacted this encounter? (DM, HTN, Smoking, COPD, CAD, Cancer, CVA, ARF, Chemo, Hep., AIDS, mental health diagnosis, sleep apnea, morbid obesity)? @ -Multiple abdominal surgeries Was patient admitted / discharged? Hospital course, mention meds given and route, prescriptions, significant lab abnormalities, going to OR and other pertinent info. @ -Presents with abdominal pain. Has a history of abdominal surgeries. We will obtain CT abdomen pelvis as well as abdominal laboratory studies. Patient was in agreement this plan. Vital signs are within acceptable limits. Patient will be symptomatically treated with IV fluids, Zofran, Protonix, morphine. Patient's laboratory studies remarkable for mild leukocytosis of 13.2. EKG is unremarkable. Lactic acid within normal limits. CT imaging shows findings concerning for small bowel obstruction. On reevaluation, patient still having pain. I discussed results with her. We will place an NG tube, as well as empirically start the patient on Zosyn. She has made NPO. I discussed with surgeon typically evaluate the patient for this, and she is requesting that Dr. Mckenna evaluate her. Dr. Villa is on-call. Therefore I will admit to medicine and consult Dr. Mckenna to evaluate in the morning. I spoke with the admitting physician, Dr. Brandon who accepted the admission. Undiagnosed new problem with uncertain prognosis? @ -No Drug Therapy requiring intensive monitoring for toxicity (Heparin, Nitro, Insulin, Cardizem)? @ -No Were any procedures done? @ -No Diagnosis/symptom? @ -Small bowel obstruction Acute, or Chronic, or Acute on Chronic? @ -Acute Uncomplicated (without systemic symptoms) or Complicated (systemic symptoms)? @ -Complicated Side effects of treatment? @ -None Exacerbation, Progression, or Severe Exacerbation] @ -No Poses a threat to life or bodily function? @ -Yes - Lab Data Result diagrams: 06/02/23 23:48 06/02/23 23:48 Lab Results 06/02/23 06/02/23 06/02/23 Range/Units 23:48 23:48 23:48 WBC 13.2 H (3.8-10.6) k/uL RBC 4.79 (3.80-5.40) m/uL Hgb 13.5 (11.4-16.0) gm/dL Hct 39.6 (34.0-46.0) % MCV 82.7 (80.0-100.0) fL MCH 28.1 (25.0-35.0) pg MCHC 34.0 (31.0-37.0) g/dL RDW 14.4 (11.5-15.5) % Plt Count 211 (150-450) k/uL MPV 8.7 Neutrophils % 82 % Lymphocytes % 12 % Monocytes % 3 % Eosinophils % 2 % Basophils % 1 % Neutrophils # 10.8 H (1.3-7.7) k/uL Lymphocytes # 1.6 (1.0-4.8) k/uL Monocytes # 0.4 (0-1.0) k/uL Eosinophils # 0.2 (0-0.7) k/uL Basophils # 0.1 (0-0.2) k/uL PT 10.4 (10.0-12.5) sec INR 0.9 (<1.2) APTT 25.2 (22.0-30.0) sec Sodium 134 L (137-145) mmol/L Potassium 4.2 (3.5-5.1) mmol/L Chloride 99 (98-107) mmol/L Carbon Dioxide 23 (22-30) mmol/L Anion Gap 12 mmol/L BUN 17 (7-17) mg/dL Creatinine 0.40 L (0.52-1.04) mg/dL Est GFR (CKD-EPI)AfAm >90 (>60 ml/min/1.73 sqM) Est GFR (CKD-EPI)NonAf >90 (>60 ml/min/1.73 sqM) Glucose 259 H (74-99) mg/dL Plasma Lactic Acid Niels (0.7-2.0) mmol/L Calcium 9.7 (8.4-10.2) mg/dL Total Bilirubin 0.6 (0.2-1.3) mg/dL AST 31 (14-36) U/L ALT 39 H (4-34) U/L Alkaline Phosphatase 146 H (38-126) U/L Total Protein 7.2 (6.3-8.2) g/dL Albumin 4.5 (3.5-5.0) g/dL Amylase 55 (30-110) U/L Lipase 86 (23-300) U/L Urine Color Urine Appearance (Clear) Urine pH (5.0-8.0) Ur Specific [place] (1.001-1.035) Urine Protein (Negative) Urine Glucose (UA) (Negative) Urine Ketones (Negative) Urine Blood (Negative) Urine Nitrite (Negative) Urine Bilirubin (Negative) Urine Urobilinogen (<2.0) mg/dL Ur Leukocyte Esterase (Negative) Urine RBC (0-5) /hpf Urine WBC (0-5) /hpf Ur Squamous Epith Cells (0-4) /hpf 06/02/23 06/03/23 Range/Units 23:48 01:09 WBC (3.8-10.6) k/uL RBC (3.80-5.40) m/uL Hgb (11.4-16.0) gm/dL Hct (34.0-46.0) % MCV (80.0-100.0) fL MCH (25.0-35.0) pg MCHC (31.0-37.0) g/dL RDW (11.5-15.5) % Plt Count (150-450) k/uL MPV Neutrophils % % Lymphocytes % % Monocytes % % Eosinophils % % Basophils % % Neutrophils # (1.3-7.7) k/uL Lymphocytes # (1.0-4.8) k/uL Monocytes # (0-1.0) k/uL Eosinophils # (0-0.7) k/uL Basophils # (0-0.2) k/uL PT (10.0-12.5) sec INR (<1.2) APTT (22.0-30.0) sec Sodium (137-145) mmol/L Potassium (3.5-5.1) mmol/L Chloride (98-107) mmol/L Carbon Dioxide (22-30) mmol/L Anion Gap mmol/L BUN (7-17) mg/dL Creatinine (0.52-1.04) mg/dL Est GFR (CKD-EPI)AfAm (>60 ml/min/1.73 sqM) Est GFR (CKD-EPI)NonAf (>60 ml/min/1.73 sqM) Glucose (74-99) mg/dL Plasma Lactic Acid Niels 1.2 (0.7-2.0) mmol/L Calcium (8.4-10.2) mg/dL Total Bilirubin (0.2-1.3) mg/dL AST (14-36) U/L ALT (4-34) U/L Alkaline Phosphatase (38-126) U/L Total Protein (6.3-8.2) g/dL Albumin (3.5-5.0) g/dL Amylase (30-110) U/L Lipase (23-300) U/L Urine Color Colorless Urine Appearance Clear (Clear) Urine pH 6.5 (5.0-8.0) Ur Specific [place] 1.016 (1.001-1.035) Urine Protein Negative (Negative) Urine Glucose (UA) 2+ H (Negative) Urine Ketones 1+ H (Negative) Urine Blood Negative (Negative) Urine Nitrite Negative (Negative) Urine Bilirubin Negative (Negative) Urine Urobilinogen <2.0 (<2.0) mg/dL Ur Leukocyte Esterase Small H (Negative) Urine RBC <1 (0-5) /hpf Urine WBC 3 (0-5) /hpf Ur Squamous Epith Cells <1 (0-4) /hpf - EKG Data -: EKG Interpreted by Me EKG Comments: 12-lead Electrocardiogram Interpretation Note EKG was reviewed and interpreted by myself. 12-lead ECG performed at 2322 is interpreted by me as revealing normal sinus rhythm at a rate of 98 beats per minute. Left axis deviation. KS interval is 175 ms, QRS duration is 99 ms, QTc is 387 ms.. There were no ST or T wave abnormalities to suggest myocardial ischemia or injury. R wave progression across the precordium was delayed. By my interpretation this EKG is non-diagnostic for acute ischemia. Disposition Clinical Impression: Small bowel obstruction Disposition: ADMITTED IP TO THIS HOSP Condition: Stable Time of Disposition: 02:18
[2023-06-03 01:19] LABS: Appearance,Urine Clear (Clear); Bilirubin,Urine Negative (Negative); Blood,Urine Negative (Negative); Color,Urine Colorless; Glucose,Urine (UA) 2+ (Negative); Ketones,Urine 1+ (Negative); Leukocyte Esterase,Urine Small (Negative); Nitrite,Urine Negative (Negative); PH, Urine 6.5 (5.0-8.0); Protein,Urine Negative (Negative); RBC,Urine <1 /hpf (0-5); Specific Gravity,Urine 1.016 (1.001-1.035); Squamous Epithelial Cell,Urine <1 /hpf (0-4); Urobilinogen,Urine <2.0 mg/dL (<2.0); WBC,Urine 3 /hpf (0-5)
--- NOTE | 2023-06-03 02:09 | CT ---
EXAM: CT Abdomen and Pelvis With Intravenous Contrast CLINICAL HISTORY: ITS.REASON CT Reason: abdominal pain, acute, generalized TECHNIQUE: Axial computed tomography images of the abdomen and pelvis with intravenous contrast. CTDI is 41.1 mGy and DLP is 1946 mGy-cm. This CT exam was performed using one or more of the following dose reduction techniques: automated exposure control, adjustment of the mA and/or kV according to patient size, and/or use of iterative reconstruction technique. COMPARISON: CT Abdomen Pelvis dated 01/23/23 FINDINGS: Lung bases: Unremarkable. No mass. No consolidation. ABDOMEN: Liver: Unremarkable. No mass. Gallbladder and bile ducts: Cholecystectomy and mild central biliary dilation, stable. Pancreas: Unremarkable. No mass. No ductal dilation. Spleen: Unremarkable. No splenomegaly. Adrenals: Stable mild nodular adrenal glands. Kidneys and ureters: Mild fullness of the urinary tracts bilaterally may relate to distended urinary bladder. No obvious obstructing etiology. Small right renal low-density lesion/cyst. Stomach and bowel: Multiple dilated small bowel loops with fluid and heterogeneous contents. Collapsed distal loops. May represent small bowel obstruction. Transition appears somewhat gradual in the anterior midline abdomen and may be due to adhesions. Small ventral hernia containing part of a bowel wall without discrete transition point at this site. Some mildly thickened small bowel loops and mesenteric edema in this area. Ischemic component not excluded. PELVIS: Appendix: Normal appendix. Bladder: See above. Reproductive: Absent uterus. ABDOMEN and PELVIS: Intraperitoneal space: No free air. No significant fluid collection. Bones/joints: Degenerative changes of the spine. No acute fracture. No dislocation. Soft tissues: Postsurgical changes of the anterior abdominal wall. Vasculature: Moderate aortoiliac vascular calcifications. No abdominal aortic aneurysm. Lymph nodes: Unremarkable. No enlarged lymph nodes. IMPRESSION: Multiple dilated small bowel loops with fluid and heterogeneous contents. Collapsed distal loops. May represent small bowel obstruction. Transition appears somewhat gradual in the anterior midline abdomen and may be due to adhesions. Small ventral hernia containing part of a bowel wall without discrete transition point at this site. Some mildly thickened small bowel loops and mesenteric edema in this area. Ischemic component not excluded.
[2023-06-03] MEDS ORDERED: NALOXONE 0.4 MG/ML 1 ML VIAL IV PRN (02:19)
[2023-06-03] MEDS: MORPHINE SULFATE 4 MG/ML SYRINGE IVP PRN (02:58)
[2023-06-03] MEDS: PIPERACILLIN-TAZOBACTAM 3.375 GM in SODIUM CHLORIDE 0.9% 100 ML IVPB STA (02:58)
[2023-06-03] MEDS: LIDOCAINE 2% GLYDO JELLY 6 ML APPL TOPICAL STA (02:59)
[2023-06-03] MEDS: SODIUM CHLORIDE 0.9% 1,000 ML IV SCH (02:59)
[2023-06-03] MEDS: BENZOCAINE SPRAY 1 CAN MUCOUS MEM STA (02:59)
--- NOTE | 2023-06-03 04:33 | XR ---
EXAM: XR Chest, 1 View CLINICAL HISTORY: ITS.REASON XR Reason: NG placement TECHNIQUE: Frontal view of the chest. COMPARISON: XR Chest dated 11/07/22 FINDINGS: Lungs: Lung apices not included on this exam. No consolidation. Pleural space: Unremarkable. No pneumothorax. Heart: Unremarkable. No cardiomegaly. Mediastinum: Unremarkable. Normal mediastinal contour. Bones/joints: Unremarkable. No acute fracture. Tubes, lines and devices: NG tube tip in the proximal to mid stomach. IMPRESSION: NG tube tip in the proximal to mid stomach.
[2023-06-03] MEDS: PANTOPRAZOLE 40 MG/10 ML VIAL IV SCH (08:27)
[2023-06-03] MEDS: ONDANSETRON 4 MG/2 ML VIAL IVP PRN (10:08)
[2023-06-03] MEDS: PIPERACILLIN-TAZOBACTAM 3.375 GM in SODIUM CHLORIDE 0.9% 100 ML IVPB SCH (10:08)
[2023-06-03] MEDS ORDERED: DEXTROSE 50% SYRINGE 50 ML IVP PRN ×2 (11:50)
[2023-06-03] MEDS: INSULIN DETEMIR (LEVEMIR) 100 UNIT/ML SYR SQ SCH (12:12)
[2023-06-03 12:13] LABS: Glucose,Whole Blood 234 mg/dL (70-110)
[2023-06-03] MEDS: INSULIN ASPART (NovoLOG) 100 UNIT/ML VIAL SQ SCH (12:14)
--- NOTE | 2023-06-03 14:37 | P.GSCN ---
History of Present Illness Consult date: 06/03/23 History of present illness: CHIEF COMPLAINT: Abdominal pain HISTORY OF PRESENT ILLNESS: This is a 52-year-old female who presented to the hospital with complaints of abdominal pain x 1 week. She reports the pain is located in the middle of the abdomen near her midline incision. Patient has prior history of small bowel obstructions with lysis of adhesions in September 2021. Her recent incisional infection has healed. Patient reports that she has been vomiting nauseous and having distended abdomen. She did have a small bowel movement yesterday. The last time she had any flatus was yesterday. CT scan had reported multiple dilated small bowel loops. May represent small bowel obstruction. Transition of point appears somewhat gradual in the anterior midline abdomen and may be due to adhesions. Patient has NG tube in place. Patient with a known history of multiple abdominal surgeries. That does include a lysis of adhesions, , cholecystectomy hernia pair with mesh and hysterectomy. PAST MEDICAL HISTORY: See list. PAST SURGICAL HISTORY: See list. MEDICATIONS: See list. ALLERGIES: See list. SOCIAL HISTORY: No illicit drug use. REVIEW OF SYSTEMS: CONSTITUTIONAL: Denies fever or chills. HEENT: Denies blurred vision, vision changes, or eye pain. Denies hemoptysis ENDOCRINE: Denies heat or cold intolerance. CARDIOVASCULAR: Denies chest pain or pressure. RESPIRATORY: No shortness of breath. GASTROINTESTINAL: Denies abdominal pain. Denies nausea or vomiting. NEURO: Denies history of seizures. PSYCH: No depression or suicidal ideation HEMATOLOGIC: Denies bleeding disorders. LYMPHATIC: The patient denies any lumps and bumps around the neck. GENITOURINARY: Denies any blood in urine or increased urinary frequency. MUSCULOSKELETAL: Denies myalgias. Denies joint swelling. Denies decreased range of motion beyond patients baseline. SKIN: Denies pruitis. Denies rash. PHYSICAL EXAM: VITAL SIGNS: Reviewed GENERAL: Well-developed in no acute distress. HEENT: No sclera icterus. Extraocular movements grossly intact. Moist buccal mucosa. Head is atraumatic, normocephalic. Hears conversational speech. No nasal drainage. NECK: Supple without lymphadenopathy. CHEST: Non-labored respirations and equal bilateral excursions. CARDIOVASCULAR: Palpable 2+ radial pulses. ABDOMEN: Distended with diffuse tenderness. Midline incision healed MUSCULOSKELETAL: No clubbing or cyanosis. NEUROLOGIC: No focal or lateralizing signs. Cranial nerves II through XII grossly intact. PSYCH: Appropriate affect. Alert and oriented to person, place and time. SKIN: Well perfused. Good skin turgor. LABORATORY DATA: WBC 13.2 Hgb 13.5 platelets 211 Sodium 134 potassium 4.2 creatinine 0.40 IMAGING: CT scan abdomen pelvis multiple dilated small bowel loops with fluid and heterogenous contents. Collapsed distal loops. May represent small bowel obstruction. Transition appears somewhat gradual in the anterior midline abdomen and may be due to adhesions. Small ventral hernia containing part of bowel without discrete transition point at this site. Some mildly thickened small bowel loops and mesenteric edema in this area. Ischemic component not excluded ASSESSMENT: 1. Small bowel obstruction possibly due to adhesions 2. Abdominal pain 3. Prior abdominal surgeries PLAN: -Continue NG tube for decompression -Keep patient n.p.o. -Continue IV fluids -Continue antibiotics -Continue supportive care Physician Warp Bleaching Vat Tender note has been reviewed by physician. Signing provider agrees with the documented findings, assessment, and plan of care. Past Medical History Past Medical History: Diabetes Mellitus, GERD/Reflux, Hyperlipidemia, Hypertension, Osteoarthritis (OA), Seizure Disorder Additional Past Medical History / Comment(s): Hx bowel obstruction, kidney stones. migraines, last seizure 2011-due to cymbalta, varicose veins, rt lower leg edema, abdominal hernia History of Any Multi-Drug Resistant Organisms: None Reported Year Discovered:: 2013 MDRO Source:: stomach mesh Past Surgical History: Back Surgery, Bladder Surgery, Section, Cholecystectomy, Hernia Repair, Hysterectomy, Orthopedic Surgery, Tonsillectomy Additional Past Surgical History / Comment(s): Ablation of lumbar nerve, COLONOSCOPY. stent rt leg, hernia repair with mesh(mesh later removed due to infection), arthroscopy left knee, multiple procedures for lysis of adhesions Past Anesthesia/Blood Transfusion Reactions: No Reported Reaction Additional Past Anesthesia/Blood Transfusion Reaction / Comm: Claustrophobia. Date of Last Stent Placement:: 01/04/2021 Past Psychological History: Anxiety, Panic Disorder Additional Psychological History / Comment(s): claustrophobia, "anxiety before procedures" Smoking Status: Former smoker Past Alcohol Use History: None Reported Additional Past Alcohol Use History / Comment(s): Started smoking in 1985 and quit 01/2021. Past Drug Use History: None Reported - Past Family History Mother Family Medical History: Cancer Additional Family Medical History / Comment(s): Mother had breast cancer Father Family Medical History: Cancer Additional Family Medical History / Comment(s): Father at 42 yrs of age from agent orange exposure. Medications and Allergies Home Medications Medication Instructions Recorded Confirmed Type Atorvastatin [Lipitor] 40 mg PO HS 03/26/21 06/03/23 History Insulin Aspart [NovoLOG Flexpen] See Protocol SQ TID-W/MEALS PRN 04/29/21 06/03/23 Rx #10 ml Aspirin 81 mg PO DAILY 09/10/21 06/03/23 History Insulin Glargine,Hum.rec.anlog 26 unit SQ HS 04/22/22 06/03/23 History [Basaglar Kwikpen U-100] Loratadine [Claritin] 10 mg PO DAILY PRN 04/22/22 06/03/23 History Melatonin 5 mg PO HS PRN 04/22/22 06/03/23 History Multivitamins, Thera [Multivitamin 1 tab PO DAILY 07/23/22 06/03/23 History (formulary)] Cholecalciferol [Vitamin D3 (25 25 mcg PO DAILY 08/20/22 06/03/23 History Mcg = 1000 Iu)] Cyclobenzaprine [Flexeril] 5 mg PO TID PRN 30 Days #90 tab 10/08/22 06/03/23 Rx Furosemide [Lasix] 20 mg PO DAILY 10/24/22 06/03/23 History Potassium Chloride ER [K-Dur 10] 10 meq PO DAILY 10/24/22 06/03/23 History Docusate [Colace] 100 mg PO BID 12/04/22 06/03/23 History Omeprazole 20 mg PO HS 12/04/22 06/03/23 History Ticagrelor [Brilinta] 90 mg PO BID-W/MEALS 12/04/22 06/03/23 History lisinopriL [Zestril] 10 mg PO DAILY 12/04/22 06/03/23 History HYDROcodone/APAP 7.5-325MG [[place] 1 tab PO Q6H PRN 30 Days #120 tab 03/17/23 06/03/23 Rx 7.5-325] Morphine Sulfate ER [Ms Contin] 15 mg PO Q12H 30 Days #60 tab 03/17/23 06/03/23 Rx Biotin [Tkkt-Avvr-Jyfio] 10,000 mcg PO DAILY 06/03/23 06/03/23 History Calcium Carbonate [Calcium] 600 mg PO BID 06/03/23 06/03/23 History Allergies Allergy/AdvReac Type Severity Reaction Status Date / Time theodoreerry Allergy Severe throat Verified 06/03/23 08:01 swelling, buprenorphine [From Suboxone] Allergy Swelling Verified 06/03/23 08:01 gabapentin Allergy Swelling Verified 06/03/23 08:01 naloxone [From Suboxone] Allergy Swelling Verified 06/03/23 08:01 NSAIDS (Non-Steroidal Allergy Unknown Verified 06/03/23 08:01 Anti-Inflamma Childhood duloxetine [From Cymbalta] AdvReac Confusion/s Verified 06/03/23 08:01 eizures Surgical - Exam Vital Signs Temp Pulse Resp BP Pulse Ox 98.5 F 98 16 184/83 96 06/02/23 22:37 06/02/23 22:37 06/02/23 22:37 06/02/23 22:37 06/02/23 22:37 Results - Labs 06/02/23 23:48 06/02/23 23:48 Abnormal Lab Results - Last 24 Hours (Table) 06/02/23 06/02/23 06/03/23 Range/Units 23:48 23:48 01:09 WBC 13.2 H (3.8-10.6) k/uL Neutrophils # 10.8 H (1.3-7.7) k/uL Sodium 134 L (137-145) mmol/L Creatinine 0.40 L (0.52-1.04) mg/dL Glucose 259 H (74-99) mg/dL POC Glucose (mg/dL) (70-110) mg/dL ALT 39 H (4-34) U/L Alkaline Phosphatase 146 H (38-126) U/L Urine Glucose (UA) 2+ H (Negative) Urine Ketones 1+ H (Negative) Ur Leukocyte Esterase Small H (Negative) 06/03/23 Range/Units 12:10 WBC (3.8-10.6) k/uL Neutrophils # (1.3-7.7) k/uL Sodium (137-145) mmol/L Creatinine (0.52-1.04) mg/dL Glucose (74-99) mg/dL POC Glucose (mg/dL) 234 H (70-110) mg/dL ALT (4-34) U/L Alkaline Phosphatase (38-126) U/L Urine Glucose (UA) (Negative) Urine Ketones (Negative) Ur Leukocyte Esterase (Negative) Diabetes panel 06/02/23 Range/Units 23:48 Sodium 134 L (137-145) mmol/L Potassium 4.2 (3.5-5.1) mmol/L Chloride 99 (98-107) mmol/L Carbon Dioxide 23 (22-30) mmol/L BUN 17 (7-17) mg/dL Creatinine 0.40 L (0.52-1.04) mg/dL Glucose 259 H (74-99) mg/dL Calcium 9.7 (8.4-10.2) mg/dL AST 31 (14-36) U/L ALT 39 H (4-34) U/L Alkaline Phosphatase 146 H (38-126) U/L Total Protein 7.2 (6.3-8.2) g/dL Albumin 4.5 (3.5-5.0) g/dL Calcium panel 06/02/23 Range/Units 23:48 Calcium 9.7 (8.4-10.2) mg/dL Albumin 4.5 (3.5-5.0) g/dL Pituitary panel 06/02/23 Range/Units 23:48 Sodium 134 L (137-145) mmol/L Potassium 4.2 (3.5-5.1) mmol/L Chloride 99 (98-107) mmol/L Carbon Dioxide 23 (22-30) mmol/L BUN 17 (7-17) mg/dL Creatinine 0.40 L (0.52-1.04) mg/dL Glucose 259 H (74-99) mg/dL Calcium 9.7 (8.4-10.2) mg/dL Adrenal panel 06/02/23 Range/Units 23:48 Sodium 134 L (137-145) mmol/L Potassium 4.2 (3.5-5.1) mmol/L Chloride 99 (98-107) mmol/L Carbon Dioxide 23 (22-30) mmol/L BUN 17 (7-17) mg/dL Creatinine 0.40 L (0.52-1.04) mg/dL Glucose 259 H (74-99) mg/dL Calcium 9.7 (8.4-10.2) mg/dL Total Bilirubin 0.6 (0.2-1.3) mg/dL AST 31 (14-36) U/L ALT 39 H (4-34) U/L Alkaline Phosphatase 146 H (38-126) U/L Total Protein 7.2 (6.3-8.2) g/dL Albumin 4.5 (3.5-5.0) g/dL
[2023-06-03 18:19] LABS: Glucose,Whole Blood 175 mg/dL (70-110)
--- NOTE | 2023-06-03 20:11 | P.HPIM ---
History of Present Illness H&P Date: 06/03/23 Chief Complaint: Abdominal pain This a pleasant 52-year-old female past medical history significant for multiple abdominal surgeries including lysis of adhesions, hernia repair with mesh, diabetes mellitus, peripheral vascular disease on Brilinta, hypertension, hyperlipidemia and multiple other medical issues presented to the ER with complaints of abdominal pain that started last week accompanied by nausea and vomiting. Reports pain greatest around her midline abdominal scar, radiates to the right and further to her back. Last bowel movement reported Thursday or Thursday. CT reported multiple dilated small bowel loops, collapsed distal loops, may represent small bowel obstruction, transition appears somewhat gradual in the anterior midline abdomen and may be due to adhesions, small ventral hernia containing part of the bowel wall without discrete transition point at this site some mildly thickened small bowel loops and mesenteric edema in this area ischemic component not excluded. NG tube placed in the ED. general surgery on consult. Afebrile, WBC 13.2, hemoglobin 13.5, platelets 211, INR 0.9, electrolytes and renal function within normal limits. UA negative. Hyperglycemic, did not receive her diabetic med regimen last night in the ER. Review of Systems ROS Statement: Those systems with pertinent positive or pertinent negative responses have been documented in the HPI. ROS Other: All systems not noted in ROS Statement are negative. Past Medical History Past Medical History: Diabetes Mellitus, GERD/Reflux, Hyperlipidemia, Hypertension, Osteoarthritis (OA), Seizure Disorder Additional Past Medical History / Comment(s): Hx bowel obstruction, kidney stones. migraines, last seizure 2011-due to cymbalta, varicose veins, rt lower leg edema, abdominal hernia History of Any Multi-Drug Resistant Organisms: None Reported Date of last positivie culture/infection: 2012 MDRO Source:: stomach mesh Past Surgical History: Back Surgery, Bladder Surgery, Section, Cholecystectomy, Hernia Repair, Hysterectomy, Orthopedic Surgery, Tonsillectomy Additional Past Surgical History / Comment(s): Ablation of lumbar nerve, COLONOSCOPY. stent rt leg, hernia repair with mesh(mesh later removed due to infection), arthroscopy left knee, multiple procedures for lysis of adhesions Past Anesthesia/Blood Transfusion Reactions: No Reported Reaction Additional Past Anesthesia/Blood Transfusion Reaction / Comment(s): Claustrophobia. Date of Last Stent Placement:: 01/04/2021 Past Psychological History: Anxiety, Panic Disorder Additional Psychological History / Comment(s): claustrophobia, "anxiety before procedures" Smoking Status: Former smoker Past Alcohol Use History: None Reported Additional Past Alcohol Use History / Comment(s): Started smoking in 1985 and quit 01/2021. Past Drug Use History: None Reported - Past Family History Mother Family Medical History: Cancer Additional Family Medical History / Comment(s): Mother had breast cancer Father Family Medical History: Cancer Additional Family Medical History / Comment(s): Father at 42 yrs of age from agent orange exposure. Medications and Allergies Home Medications Medication Instructions Recorded Confirmed Type Atorvastatin [Lipitor] 40 mg PO HS 03/26/21 06/03/23 History Insulin Aspart [NovoLOG Flexpen] See Protocol SQ TID-W/MEALS PRN 04/29/21 06/03/23 Rx #10 ml Aspirin 81 mg PO DAILY 09/10/21 06/03/23 History Insulin Glargine,Hum.rec.anlog 26 unit SQ HS 04/22/22 06/03/23 History [Basaglar Kwikpen U-100] Loratadine [Claritin] 10 mg PO DAILY PRN 04/22/22 06/03/23 History Melatonin 5 mg PO HS PRN 04/22/22 06/03/23 History Multivitamins, Thera [Multivitamin 1 tab PO DAILY 07/23/22 06/03/23 History (formulary)] Cholecalciferol [Vitamin D3 (25 25 mcg PO DAILY 08/20/22 06/03/23 History Mcg = 1000 Iu)] Cyclobenzaprine [Flexeril] 5 mg PO TID PRN 30 Days #90 tab 10/08/22 06/03/23 Rx Furosemide [Lasix] 20 mg PO DAILY 10/24/22 06/03/23 History Potassium Chloride ER [K-Dur 10] 10 meq PO DAILY 10/24/22 06/03/23 History Docusate [Colace] 100 mg PO BID 12/04/22 06/03/23 History Omeprazole 20 mg PO HS 12/04/22 06/03/23 History Ticagrelor [Brilinta] 90 mg PO BID-W/MEALS 12/04/22 06/03/23 History lisinopriL [Zestril] 10 mg PO DAILY 12/04/22 06/03/23 History HYDROcodone/APAP 7.5-325MG [[place] 1 tab PO Q6H PRN 30 Days #120 tab 03/17/23 06/03/23 Rx 7.5-325] Morphine Sulfate ER [Ms Contin] 15 mg PO Q12H 30 Days #60 tab 03/17/23 06/03/23 Rx Biotin [Bzln-Qeyd-Oyamp] 10,000 mcg PO DAILY 06/03/23 06/03/23 History Calcium Carbonate [Calcium] 600 mg PO BID 06/03/23 06/03/23 History Allergies Allergy/AdvReac Type Severity Reaction Status Date / Time raspberry Allergy Severe throat Verified 06/03/23 08:01 swelling, buprenorphine [From Suboxone] Allergy Swelling Verified 06/03/23 08:01 gabapentin Allergy Swelling Verified 06/03/23 08:01 naloxone [From Suboxone] Allergy Swelling Verified 06/03/23 08:01 NSAIDS (Non-Steroidal Allergy Unknown Verified 06/03/23 08:01 Anti-Inflamma Childhood duloxetine [From Cymbalta] AdvReac Confusion/s Verified 06/03/23 08:01 eizures Physical Exam Vitals: Vital Signs Temp Pulse Pulse Resp BP BP Pulse Ox 06/03/23 08:21 97.9 F 83 18 121/52 95 06/03/23 06:31 98.7 F 105 H 20 119/59 98 06/02/23 22:37 98.5 F 98 16 184/83 96 Intake and Output 06/02/23 06/03/23 06/03/23 22:59 06:59 14:59 Other: Weight 102.965 kg PHYSICAL EXAM: VITAL SIGNS: [As above] GENERAL: Well-nourished, pleasant, alert and oriented x 3, sitting up on stret saeid, positive abdominal pain HEENT: Normocephalic conjunctivae normal. eyes normal. NG tube present NECK: Supple, no JVD. No thyroid enlargement. No LNs CARDIOVASCULAR: S1, S2 regular.. No murmur RESPIRATION: Unlabored, equal air entry breath sounds diminished in the bases. No rhonchi or crackles. No bronchial breathing. ABDOMEN: Soft, distended, diffuse tenderness greatest around prior midline incision, no guarding. no masses palpable. LEGS: No edema. no swelling PSYCHIATRY: Alert and oriented X3, mood and affect normal. NERVOUS SYSTEM: Cranial N 2-12 grossly normal. No focal deficits. Strength and sensation grossly intact.. Skin: Warm and dry, no rash Results CBC & Chem 7: 06/02/23 23:48 06/02/23 23:48 Labs: Abnormal Lab Results - Last 24 Hours (Table) 06/02/23 06/02/23 06/03/23 Range/Units 23:48 23:48 01:09 WBC 13.2 H (3.8-10.6) k/uL Neutrophils # 10.8 H (1.3-7.7) k/uL Sodium 134 L (137-145) mmol/L Creatinine 0.40 L (0.52-1.04) mg/dL Glucose 259 H (74-99) mg/dL ALT 39 H (4-34) U/L Alkaline Phosphatase 146 H (38-126) U/L Urine Glucose (UA) 2+ H (Negative) Urine Ketones 1+ H (Negative) Ur Leukocyte Esterase Small H (Negative) Assessment and Plan Assessment: Abdominal pain ,small bowel obstruction suggested per CT, in a patient with multiple abdominal surgeries Morbid obesity, BMI 37 Peripheral vascular disease, stenting, on Brilinta Diabetes mellitus Hypertension Hyperlipidemia Plan: Continue on current medication regimen ,monitoring and symptomatic treatment. IV fluid hydration, IV Zosyn. n.p.o./bowel rest. NG tube-management as per general surgery. Pain management. PPI for GI prophylaxis. The impression and plan of care has been dictated as directed. : I performed a history and examination of this patient, discussed the same with the dictator. I agree with the dictator's note ,documented as a scribe. Any additional findings or plans will be noted.
[2023-06-03 23:58] LABS: Glucose,Whole Blood 132 mg/dL (70-110)
[2023-06-04 06:13] LABS: Glucose,Whole Blood 162 mg/dL (70-110)
[2023-06-04 07:24] LABS: Basophils % (A) 1 %; Eosinophils # (A) 0.3 k/uL (0-0.7); Eosinophils % (A) 4 %; HGB 12.5 gm/dL (11.4-16.0); Lymphocytes # (A) 1.7 k/uL (1.0-4.8); Lymphocytes % (A) 22 %; MCH 28.6 pg (25.0-35.0); MCHC 33.8 g/dL (31.0-37.0); MCV 84.6 fL (80.0-100.0); Mean Platelet Volume 8.7; Monocytes # (A) 0.3 k/uL (0-1.0); Monocytes % (A) 4 %; Neutrophils # (A) 5.2 k/uL (1.3-7.7); Neutrophils % (A) 68 %; Platelet Count 192 k/uL (150-450); RBC 4.37 m/uL (3.80-5.40); RDW 14.4 % (11.5-15.5); WBC 7.7 k/uL (3.8-10.6)
[2023-06-04 07:48] LABS: ALT 29 U/L (4-34); AST 29 U/L (14-36); African American GFR (CKD) >90 (>60 ml/min/1.73 sqM); Albumin 3.3 g/dL (3.5-5.0); Alkaline Phosphatase 113 U/L (38-126); Anion Gap 5 mmol/L; Blood Urea Nitrogen 8 mg/dL (7-17); Calcium 8.5 mg/dL (8.4-10.2); Carbon Dioxide 23 mmol/L (22-30); Chloride 108 mmol/L (98-107); Glucose 171 mg/dL (74-99); Non-African American GFR(CKD) >90 (>60 ml/min/1.73 sqM); Sodium 136 mmol/L (137-145); Total Bilirubin 0.6 mg/dL (0.2-1.3); Total Protein 5.7 g/dL (6.3-8.2)
[2023-06-04 11:48] LABS: Glucose,Whole Blood 150 mg/dL (70-110)
--- NOTE | 2023-06-04 14:18 | P.PN ---
Subjective Progress Note Date: 06/04/23 CHIEF COMPLAINT: Abdominal pain HISTORY OF PRESENT ILLNESS: Patient continues to report abdominal pain. No bowel movement or flatus. NG tube with 100 mL output this morning. Afebrile. White count normalized from 13-7.7 PHYSICAL EXAM: VITAL SIGNS: Reviewed GENERAL: Well-developed in no acute distress. HEENT: No sclera icterus. Extraocular movements grossly intact. Moist buccal mucosa. Head is atraumatic, normocephalic. Hears conversational speech. No nasal drainage. NECK: Supple without lymphadenopathy. CHEST: Non-labored respirations and equal bilateral excursions. CARDIOVASCULAR: Palpable 2+ radial pulses. ABDOMEN: Soft. Mildly distended. Diffuse tenderness MUSCULOSKELETAL: No clubbing or cyanosis. NEUROLOGIC: No focal or lateralizing signs. Cranial nerves II through XII g rossly intact. PSYCH: Appropriate affect. Alert and oriented to person, place and time. SKIN: Well perfused. Good skin turgor. ASSESSMENT: 1. Small bowel obstruction possibly due to adhesions 2. Abdominal pain 3. Prior abdominal surgeries PLAN: -Continue NG tube for decompression -Keep patient n.p.o. -Continue IV fluids -Continue antibiotics -Continue supportive care -Continue conservative management Physician Genetics Teacher note has been reviewed by physician. Signing provider agrees with the documented findings, assessment, and plan of care. Objective - Vital Signs Vital signs: Vital Signs Temp 97.8 F 06/04/23 12:34 Pulse 90 06/04/23 12:34 Resp 16 06/03/23 16:15 BP 170/90 06/04/23 12:34 Pulse Ox 92 L 06/04/23 02:00 FiO2 Intake & Output 06/03/23 06/04/23 06/04/23 18:59 06:59 18:59 Intake Total 0 Output Total 450 Balance 0 -450 Weight 102.965 kg Intake: Oral 0 Output: Gastric Drainage 450 Other: # Voids 1 - Labs CBC & Chem 7: 06/04/23 07:07 06/04/23 07:07 Labs: Abnormal Lab Results - Last 24 Hours (Table) 06/03/23 06/03/23 06/03/23 Range/Units 16:34 18:18 23:56 Sodium (137-145) mmol/L Chloride (98-107) mmol/L Creatinine (0.52-1.04) mg/dL Glucose (74-99) mg/dL POC Glucose (mg/dL) 175 H 132 H (70-110) mg/dL Hemoglobin A1c 9.9 H (<=6.0) % Total Protein (6.3-8.2) g/dL Albumin (3.5-5.0) g/dL 06/04/23 06/04/23 06/04/23 Range/Units 06:10 07:07 11:46 Sodium 136 L (137-145) mmol/L Chloride 108 H (98-107) mmol/L Creatinine 0.38 L (0.52-1.04) mg/dL Glucose 171 H (74-99) mg/dL POC Glucose (mg/dL) 162 H 150 H (70-110) mg/dL Hemoglobin A1c (<=6.0) % Total Protein 5.7 L (6.3-8.2) g/dL Albumin 3.3 L (3.5-5.0) g/dL Microbiology - Last 24 Hours (Table) 06/03/23 03:35 Blood Culture - Preliminary Blood 06/03/23 03:15 Blood Culture - Preliminary Blood
[2023-06-04 15:13] VITALS: BMI 36.6
[2023-06-04 17:56] LABS: Glucose,Whole Blood 176 mg/dL (70-110)
--- NOTE | 2023-06-04 19:26 | P.PN ---
Subjective Progress Note Date: 06/04/23 H&P Date: 06/03/23 Chief Complaint: Abdominal pain This a pleasant 52-year-old female past medical history significant for multiple abdominal surgeries including lysis of adhesions, hernia repair with mesh, diabetes mellitus, peripheral vascular disease on Brilinta, hypertension, hyperlipidemia and multiple other medical issues presented to the ER with c omplaints of abdominal pain that started last week accompanied by nausea and vomiting. Reports pain greatest around her midline abdominal scar, radiates to the right and further to her back. Last bowel movement reported Thursday or Thursday. CT reported multiple dilated small bowel loops, collapsed distal loops, may represent small bowel obstruction, transition appears somewhat gradual in the anterior midline abdomen and may be due to adhesions, small ventral hernia containing part of the bowel wall without discrete transition point at this site some mildly thickened small bowel loops and mesenteric edema in this area ischemic component not excluded. NG tube placed in the ED. general surgery on consult. Afebrile, WBC 13.2, hemoglobin 13.5, platelets 211, INR 0.9, electrolytes and renal function within normal limits. UA negative. Hyperglycemic, did not receive her diabetic med regimen last night in the ER. 06/04/2023 maintained on IV fluids, Zosyn.NG tube to low intermittent suction. reports pain unchanged. Continues to have sharp spasms radiating from mid front to the back. Denies flatus, denies bowel movement. Positive nausea with dry heaving. Afebrile, WBC has normalized, 7.7. electrolytes within normal limits, renal function stable, blood sugars controlled. Albumin 3.3. Scheduled for small bowel follow-through with Gastrografin. Objective - Vital Signs Vital signs: Vital Signs Temp 97.8 F 06/04/23 12:34 Pulse 90 06/04/23 13:55 Resp 16 06/03/23 16:15 BP 145/73 06/04/23 13:55 Pulse Ox 92 L 06/04/23 02:00 FiO2 Intake & Output 06/04/23 06/04/23 06/05/23 06:59 18:59 06:59 Intake Total 1075 Output Total 450 500 Balance -450 575 Weight 102.965 kg 102.965 kg Intake: Intake, IV Titration 1075 Amount Piperacillin-Tazobactam 3 100 .375 gm In Sodium Chloride 0.9% 100 ml @ 25 mls/hr IVPB Q8H [facility] Rx#: [id number] Sodium Chloride 0.9% 1, 975 000 ml @ 75 mls/hr IV . [id number] [facility] Rx#:[id number] Output: Gastric Drainage 450 500 Other: # Voids 1 1 # Bowel Movements 0 - Exam PHYSICAL EXAM: VITAL SIGNS: [As above] GENERAL: Well-nourished, pleasant, alert and oriented x 3, sitting up in bed, positive abdominal pain HEENT: Normocephalic conjunctivae normal. eyes normal. NG tube present NECK: Supple, no JVD. CARDIOVASCULAR: S1, S2 regular.No murmur RESPIRATION: Unlabored, equal air entry breath sounds diminished in the bases. ABDOMEN: Soft, distended, diffuse tenderness greatest around prior midline incision, no guarding. no masses palpable. LEGS: No edema. no swelling NERVOUS SYSTEM: Cranial N 2-12 grossly normal. No focal deficits. Strength and sensation grossly intact.. Skin: Warm and dry, no rash - Labs CBC & Chem 7: 06/04/23 07:07 06/04/23 07:07 Labs: Abnormal Lab Results - Last 24 Hours (Table) 06/03/23 06/03/23 06/04/23 Range/Units 16:34 23:56 06:10 Sodium (137-145) mmol/L Chloride (98-107) mmol/L Creatinine (0.52-1.04) mg/dL Glucose (74-99) mg/dL POC Glucose (mg/dL) 132 H 162 H (70-110) mg/dL Hemoglobin A1c 9.9 H (<=6.0) % Total Protein (6.3-8.2) g/dL Albumin (3.5-5.0) g/dL 06/04/23 06/04/23 06/04/23 Range/Units 07:07 11:46 17:55 Sodium 136 L (137-145) mmol/L Chloride 108 H (98-107) mmol/L Creatinine 0.38 L (0.52-1.04) mg/dL Glucose 171 H (74-99) mg/dL POC Glucose (mg/dL) 150 H 176 H (70-110) mg/dL Hemoglobin A1c (<=6.0) % Total Protein 5.7 L (6.3-8.2) g/dL Albumin 3.3 L (3.5-5.0) g/dL Microbiology - Last 24 Hours (Table) 06/03/23 03:35 Blood Culture - Preliminary Blood 06/03/23 03:15 Blood Culture - Preliminary Blood Assessment and Plan Assessment: Abdominal pain ,small bowel obstruction suggested per CT, in a patient with multiple abdominal surgeries Morbid obesity, BMI 37 Peripheral vascular disease, stenting, on Brilinta Diabetes mellitus Hypertension Hyperlipidemia Plan: Continue on current medication regimen ,monitoring and symptomatic treatment. IV fluid hydration, IV Zosyn. NG tube. Pain management. Scheduled for small bowel follow-through. The impression and plan of care has been dictated as directed. : I performed a history and examination of this patient, discussed the same with the dictator. I agree with the dictator's note ,documented as a scribe. Any additional findings or plans will be noted.
[2023-06-04] MEDS: INSULIN DETEMIR (LEVEMIR) 100 UNIT/ML SYR SQ SCH (20:17)
[2023-06-05 00:02] LABS: Glucose,Whole Blood 150 mg/dL (70-110)
[2023-06-05 05:57] LABS: Glucose,Whole Blood 134 mg/dL (70-110)
[2023-06-05] MEDS: HYDROmorphone 0.5 MG/0.5 ML SYRINGE IVP STA (07:54)
[2023-06-05 12:32] LABS: Glucose,Whole Blood 169 mg/dL (70-110)
--- NOTE | 2023-06-05 12:46 | FL ---
EXAMINATION TYPE: FL Gastrografin small bowel follow through DATE OF EXAM: 06/05/2023 CLINICAL HISTORY: 52 year-old female abdominal pain, follow-up small bowel obstruction TECHNIQUE: A single contrast small bowel follow through is performed utilizing Gastrografin. Total fluoroscopy time: None Total images: 7. Total DAP: 0 mGycm2. COMPARISON: Correlation CT 06/03/2023 FINDINGS: Molder Setter image of the abdomen shows moderate to large scattered stool. Right iliac vessel and right femoral vessel stent is noted. There is a staple line at the right lower quadrant suggesting p rior bowel surgery. Cholecystectomy clips. NG tube is present. Lung bases are clear. No dilated small bowel loops are gracie arent on the manager of network image. Gastrografin contrast was administered through the patient's NG tube. The small bowel study shows normal transit to the colon in less than 1 hour 30 minutes. Proximal and distal small bowel loops show normal caliber and overall normal fold pattern as can be discerned by the Gastrografin. There are mid small bowel loops which are dilated up to 3.9 cm. IMPRESSION: 1. Small bowel transit time of 1 hour 30 minutes is normal. If previous small bowel obstruction, this suggests interval resolution. 2. Proximal and distal small bowel loops show normal caliber. However, mid small bowel loops show res idual dilatation up to 3.9 cm. A localized mid small bowel ileus or enteritis is also a consideration .
--- NOTE | 2023-06-05 14:07 | P.PN ---
Subjective Progress Note Date: 06/05/23 CHIEF COMPLAINT: Abdominal pain HISTORY OF PRESENT ILLNESS: Patient continues to report abdominal pain. Patient did have a small bowel movement while down for the small bowel follow-through. Minimal output through the NG tube. Afebrile. Mildly tachycardic. Small bowel follow-through x-ray report small bowel transit time of 1 hour 30 minutes is normal. If previous small bowel obstruction this suggests this suggests interval resolution. Proximal and distal small bowel loops show normal caliber. However 6 mid small bowel loops show residual dilatation up to 3.9 cm. Localized mid small ileus or enteritis also consideration. X-ray results were reviewed with Dr. Mckenna. PHYSICAL EXAM: VITAL SIGNS: Reviewed GENERAL: Well-developed in no acute distress. HEENT: No sclera icterus. Extraocular movements grossly intact. Moist buccal mucosa. Head is atraumatic, normocephalic. Hears conversational speech. No nasal drainage. NECK: Supple without lymphadenopathy. CHEST: Non-labored respirations and equal bilateral excursions. CARDIOVASCULAR: Palpable 2+ radial pulses. ABDOMEN: Soft. Mildly distended. Diffuse tenderness MUSCULOSKELETAL: No clubbing or cyanosis. NEUROLOGIC: No focal or lateralizing signs. Cranial nerves II through XII grossly intact. PSYCH: Appropriate affect. Alert and oriented to person, place and time. SKIN: Well perfused. Good skin turgor. ASSESSMENT: 1. Small bowel obstruction possibly due to adhesions showing resolution on small bowel follow-through 2. Abdominal pain 3. Prior abdominal surgeries PLAN: -Discontinue NG tube -Start clear liquid diet -Continue to monitor -Continue IV fluids -Continue antibiotics -Continue supportive care -Continue conservative management Physician Heel Sander [employer] note has been reviewed by physician. Signing provider agrees with the documented findings, assessment, and plan of care. Objective - Vital Signs Vital signs: Vital Signs Temp 96.0 F L 06/05/23 12:31 Pulse 116 H 06/05/23 12:31 Resp 20 06/05/23 12:31 BP 122/83 06/05/23 12:31 Pulse Ox 95 06/05/23 12:31 FiO2 Intake & Output 06/04/23 06/05/23 06/05/23 18:59 06:59 18:59 Intake Total 1075 Output Total 500 200 Balance 575 -200 Weight 102.965 kg Intake: Intake, IV Titration 1075 Amount Piperacillin-Tazobactam 3 100 .375 gm In Sodium Chloride 0.9% 100 ml @ 25 mls/hr IVPB Q8H [facility] Rx#: [id number] Sodium Chloride 0.9% 1, 975 000 ml @ 75 mls/hr IV . [id number] [facility] Rx#:[id number] Output: Gastric Drainage 500 200 Other: # Voids 1 2 # Bowel Movements 0 2 - Labs CBC & Chem 7: 06/04/23 07:07 06/04/23 07:07 Labs: Abnormal Lab Results - Last 24 Hours (Table) 06/04/23 06/05/23 06/05/23 Range/Units 17:55 00:00 05:54 POC Glucose (mg/dL) 176 H 150 H 134 H (70-110) mg/dL 06/05/23 Range/Units 12:30 POC Glucose (mg/dL) 169 H (70-110) mg/dL Microbiology - Last 24 Hours (Table) 06/03/23 03:35 Blood Culture - Preliminary Blood 06/03/23 03:15 Blood Culture - Preliminary Blood
[2023-06-05 16:59] LABS: Glucose,Whole Blood 155 mg/dL (70-110)
[2023-06-05 19:53] LABS: Glucose,Whole Blood 124 mg/dL (70-110)
--- NOTE | 2023-06-05 21:06 | P.PN ---
Subjective Progress Note Date: 06/05/23 This a pleasant 52-year-old female past medical history significant for multiple abdominal surgeries including lysis of adhesions, hernia repair with mesh, diabetes mellitus, peripheral vascular disease on Brilinta, hypertension, hyperlipidemia and multiple other medical issues presented to the ER with co mplaints of abdominal pain that started last week accompanied by nausea and vomiting. Reports pain greatest around her midline abdominal scar, radiates to the right and further to her back. Last bowel movement reported Thursday or Thursday. CT reported multiple dilated small bowel loops, collapsed distal loops, may represent small bowel obstruction, transition appears somewhat gradual in the anterior midline abdomen and may be due to adhesions, small ventral hernia containing part of the bowel wall without discrete transition point at this site some mildly thickened small bowel loops and mesenteric edema in this area ischemic component not excluded. NG tube placed in the ED. general surgery on consult. Afebrile, WBC 13.2, hemoglobin 13.5, platelets 211, INR 0.9, electrolytes and renal function within normal limits. UA negative. Hyperglycemic, did not receive her diabetic med regimen last night in the ER. 06/04/2023 maintained on IV fluids, Zosyn.NG tube to low intermittent suction. reports pain unchanged. Continues to have sharp spasms radiating from mid front to the back. Denies flatus, denies bowel movement. Positive nausea with dry heaving. Afebrile, WBC has normalized, 7.7. electrolytes within normal limits, renal function stable, blood sugars controlled. Albumin 3.3. Scheduled for small bowel follow-through with Gastrografin. 06/05/2023 pt continues on IV fluids, zosyn. She is s/p SBFT which demonstrated normal intestinal transit and resolution of obstruction. She feels her pain is controlled on IV medications. She is on levemir 20 units and sugars are control led. Objective - Vital Signs Vital signs: Vital Signs Temp 98.2 F 06/05/23 19:18 Pulse 98 06/05/23 19:18 Resp 18 06/05/23 19:18 BP 132/79 06/05/23 19:18 Pulse Ox 96 06/05/23 19:18 FiO2 Intake & Output 06/05/23 06/05/23 06/06/23 06:59 18:59 06:59 Output Total 200 225 Balance -200 -225 Output: Gastric Drainage 200 225 Other: # Voids 2 # Bowel Movements 1 - Exam Ged: well developed, well nourished CV: RRR,no murmur Lungs: CTAB Abd: soft, tender to palpation. BS+ - Labs CBC & Chem 7: 06/04/23 07:07 06/04/23 07:07 Labs: Abnormal Lab Results - Last 24 Hours (Table) 06/05/23 06/05/23 06/05/23 Range/Units 00:00 05:54 12:30 POC Glucose (mg/dL) 150 H 134 H 169 H (70-110) mg/dL 06/05/23 06/05/23 Range/Units 16:58 19:50 POC Glucose (mg/dL) 155 H 124 H (70-110) mg/dL Microbiology - Last 24 Hours (Table) 06/03/23 03:35 Blood Culture - Preliminary Blood 06/03/23 03:15 Blood Culture - Preliminary Blood Assessment and Plan Plan: Advance to clear liquid diet. Continue with IV fluids and continue sliding scale insulin
[2023-06-06 06:50] LABS: Glucose,Whole Blood 100 mg/dL (70-110)
[2023-06-06 11:51] LABS: Glucose,Whole Blood 181 mg/dL (70-110)
--- NOTE | 2023-06-06 13:11 | P.PN ---
Subjective Progress Note Date: 06/06/23 This is a pleasant 52-year-old female who presents for a small bowel obstruction. Patient underwent a small bowel follow-through yesterday did have a small bowel movement during the procedure. Findings revealed a mid small bowel ileus/enteritis is a consideration otherwise there is suggestion of interval resolution of a previous small bowel obstruction. Patient has been started on clear liquid diet. She is reporting minimal abdominal discomfort periumbilical region. Blood Culture remains negative. Hemodynamically she is stable. Review of Systems Constitutional: Denied any fatigue denied any fever. Cardio vascular: denied any chest pain, palpitations Gastrointestinal: denied any nausea, vomiting, diarrhea Pulmonary: Denied any shortness of breath cough Neurologic denied any new focal deficits All inpatient medications were reviewed and appropriate changes in these medications as dictated in the interval history and assessment and plan. PHYSICAL EXAMINATION: GENERAL: The patient is alert and oriented x3, not in any acute distress. Well developed, well nourished. HEENT: Pupils are round and equally reacting to light. EOMI. No scleral icterus. No conjunctival pallor. Normocephalic, atraumatic. No pharyngeal erythema. No thyromegaly. CARDIOVASCULAR: S1 and S2 present. No murmurs, rubs, or gallops. PULMONARY: Chest is clear to auscultation, no wheezing or crackles. ABDOMEN: Soft, tender epigastric/periumbilical region, nondistended, normoactive bowel sounds. No palpable organomegaly. MUSCULOSKELETAL: No joint swelling or deformity. EXTREMITIES: No cyanosis, clubbing, or pedal edema. NEUROLOGICAL: Gross neurological examination did not reveal any focal deficits. SKIN: No rashes. Assessment and Plan -Abdominal pain secondary to small bowel obstruction; resolving. Patient is on clear liquid diet. Continue with pain management. -Hx of multiple abdominal surgeries. -Morbid obesity, BMI 37 -Peripheral vascular disease, stenting, on Brilinta and aspirin which have been resumed. -Diabetes mellitus type 2 controlled patient is continued on accuchecks ACHS and sliding scale insulin. -Hypertension resumed on lisinopril -Hyperlipidemia resumed on statin therapy GI prophylaxis DVT prophylaxis Full Code The impression and plan of care has been dictated by Tammy Weber, Nurse Practitioner as directed. Dr. Paul MD I have performed a history and physical examination and medical decision making of this patient, discussed the same with the dictator, and agree with the dictators assessment and plan as written, documented as a scribe. Based on total visit time, I have performed more than 50% of this visit. Objective - Vital Signs Vital signs: Vital Signs Temp 97.8 F 06/06/23 06:47 Pulse 92 06/06/23 06:47 Resp 16 06/06/23 06:47 BP 144/73 06/06/23 06:47 Pulse Ox 95 06/06/23 06:47 FiO2 Intake & Output 06/05/23 06/06/23 06/06/23 18:59 06:59 18:59 Intake Total 1940 Output Total 225 900 Balance -225 1040 Intake: Intake, IV Titration 1100 Amount Piperacillin-Tazobactam 3 200 .375 gm In Sodium Chloride 0.9% 100 ml @ 25 mls/hr IVPB Q8H [facility] Rx#: [id number] Sodium Chloride 0.9% 1, 900 000 ml @ 75 mls/hr IV . [id number] [facility] Rx#:[id number] Oral 840 Output: Gastric Drainage 225 Urine 900 Other: # Bowel Movements 1 - Labs CBC & Chem 7: 06/04/23 07:07 06/04/23 07:07 Labs: Abnormal Lab Results - Last 24 Hours (Table) 06/05/23 06/05/23 06/06/23 Range/Units 16:58 19:50 11:50 POC Glucose (mg/dL) 155 H 124 H 181 H (70-110) mg/dL Microbiology - Last 24 Hours (Table) 06/03/23 03:35 Blood Culture - Preliminary Blood 06/03/23 03:15 Blood Culture - Preliminary Blood Assessment and Plan Time with Patient: Less than 30
[2023-06-06 16:33] LABS: Glucose,Whole Blood 135 mg/dL (70-110)
[2023-06-06] MEDS: TICAGRELOR 90 MG TAB PO SCH (17:53)
[2023-06-06 19:48] LABS: Glucose,Whole Blood 156 mg/dL (70-110)
[2023-06-06] MEDS: ATORVASTATIN 40 MG TAB PO SCH (19:59)
--- NOTE | 2023-06-06 22:56 | P.PN ---
Subjective Principal diagnosis: Patient seen and evaluated bedside. Patient doing well denies abdominal pain. Denies nausea Objective - Vital Signs Vital signs: Vital Signs Temp 98.6 F 06/06/23 19:26 Pulse 85 06/06/23 19:26 Resp 18 06/06/23 20:05 BP 146/80 06/06/23 19:26 Pulse Ox 95 06/06/23 19:26 FiO2 Intake & Output 06/06/23 06/06/23 06/07/23 06:59 18:59 07:59 Intake Total 1940 900 Output Total 900 Balance 1040 900 Intake: Intake, IV Titration 1100 900 Amount Piperacillin-Tazobactam 3 200 .375 gm In Sodium Chloride 0.9% 100 ml @ 25 mls/hr IVPB Q8H [facility] Rx#: [id number] Sodium Chloride 0.9% 1, 900 900 000 ml @ 75 mls/hr IV . [id number] [facility] Rx#:[id number] Oral 840 Output: Urine 900 Other: Voiding Method Bedside Commode # Voids 1 # Bowel Movements 1 - Exam Gen. no acute distress Cardiovascular regular rate and rhythm Pulmonary nonlabored breathing Abdomen soft, minimally tender to palpation, mild distention, no guarding or rebound tenderness Passing flatus - Labs CBC & Chem 7: 06/04/23 07:07 06/04/23 07:07 Labs: Abnormal Lab Results - Last 24 Hours (Table) 06/06/23 06/06/23 06/06/23 Range/Units 11:50 16:32 19:46 POC Glucose (mg/dL) 181 H 135 H 156 H (70-110) mg/dL Microbiology - Last 24 Hours (Table) 06/03/23 03:35 Blood Culture - Preliminary Blood 06/03/23 03:15 Blood Culture - Preliminary Blood Assessment and Plan Assessment: 52 a female with resolving small bowel resection Clear liquid diet advanced as tolerated Monitor bowel function No surgical intervention at this time
[2023-06-07 07:08] LABS: Glucose,Whole Blood 95 mg/dL (70-110)
[2023-06-07] MEDS: INSULIN ASPART (NovoLOG) 100 UNIT/ML VIAL SQ SCH (07:36)
[2023-06-07] MEDS: lisinopriL 10 MG TAB PO SCH (08:49)
[2023-06-07] MEDS: ASPIRIN 81 MG PO SCH (08:49)
[2023-06-07] MEDS: CHOLECALCIFEROL 25 MCG (1000 IU) TABLET PO SCH (08:49)
[2023-06-07] MEDS: MULTIVITAMINS, THERA 1 EACH TAB PO SCH (09:11)
[2023-06-07 11:22] LABS: Blood Urea Nitrogen 4.4 mg/dL (9.0-27.0); Calcium 8.8 mg/dL (8.7-10.3); Carbon Dioxide 20.8 mmol/L (21.6-31.8); Chloride 108 mmol/L (96-109); Glucose 93 mg/dL (70-110); Magnesium 1.9 mg/dL (1.5-2.4); Potassium 3.5 mmol/L (3.5-5.5); Sodium 141 mmol/L (135-145)
--- NOTE | 2023-06-07 11:47 | P.PN ---
Subjective Progress Note Date: 06/07/23 Principal diagnosis: Small bowel obstruction Patient is doing better today. Having loose liquid stools. Minimal pain. Tolerating full liquid so far. No nausea or vomiting. Objective - Vital Signs Vital signs: Vital Signs Temp 98.2 F 06/07/23 07:08 Pulse 79 06/07/23 07:08 Resp 17 06/07/23 07:08 BP 151/76 06/07/23 07:08 Pulse Ox 94 L 06/07/23 07:08 FiO2 Intake & Output 06/06/23 06/07/23 06/07/23 17:59 06:59 18:59 Intake Total Balance Intake: Intake, IV Titration Amount Sodium Chloride 0.9% 1, 000 ml @ 75 mls/hr IV . [id number] [facility] Rx#:[id number] Other: Voiding Method Bedside Commode # Voids # Bowel Movements - Exam Abdomen: Soft, nontender, nondistended - Labs CBC & Chem 7: 06/04/23 07:07 06/07/23 06:48 Labs: Abnormal Lab Results - Last 24 Hours (Table) 06/06/23 06/06/23 06/06/23 Range/Units 11:50 16:32 19:46 Carbon Dioxide (21.6-31.8) mmol/L Anion Gap (4.00-12.00) mmol/L BUN (9.0-27.0) mg/dL Creatinine (0.6-1.5) mg/dL BUN/Creatinine Ratio (12.00-20.00) Ratio POC Glucose (mg/dL) 181 H 135 H 156 H (70-110) mg/dL 06/07/23 Range/Units 06:48 Carbon Dioxide 20.8 L (21.6-31.8) mmol/L Anion Gap 12.20 H (4.00-12.00) mmol/L BUN 4.4 L (9.0-27.0) mg/dL Creatinine 0.4 L (0.6-1.5) mg/dL BUN/Creatinine Ratio 11.00 L (12.00-20.00) Ratio POC Glucose (mg/dL) (70-110) mg/dL Microbiology - Last 24 Hours (Table) 06/03/23 03:35 Blood Culture - Preliminary Blood 06/03/23 03:15 Blood Culture - Preliminary Blood Assessment and Plan (1) Small bowel obstruction Narrative/Plan: 52-year-old female with improving small bowel obstruction. Having loose liquid stools. Continue ambulation. Continue for liquids today. Likely advance diet tomorrow. Current Visit: Yes Status: Acute Code(s): K56.609 - UNSP INTESTNL OBST, UNSP TO PARTIAL VERSUS COMPLETE OBST SNOMED Code(s): 307087137
[2023-06-07 11:50] LABS: Glucose,Whole Blood 215 mg/dL (70-110)
[2023-06-07 17:10] LABS: Glucose,Whole Blood 210 mg/dL (70-110)
[2023-06-07 20:19] LABS: Glucose,Whole Blood 178 mg/dL (70-110)
[2023-06-07] MEDS: SIMETHICONE 80 MG CHEWABLE PO PRN (20:58)
--- NOTE | 2023-06-07 22:55 | P.PN ---
Subjective Progress Note Date: 06/07/23 This is a pleasant 52-year-old female who presents for a small bowel obstruction. Patient underwent a small bowel follow-through yesterday did have a small bowel movement during the procedure. Findings revealed a mid small bowel ileus/enteritis is a consideration otherwise there is suggestion of interval resolution of a previous small bowel obstruction. Patient has been started on clear liquid diet. She is reporting minimal abdominal discomfort periumbilical region. Blood Culture remains negative. Hemodynamically she is stable. 06/07/2023 Patient is evaluated today sitting in bed. Continues to report significant abdominal discomfort 08/06. Patient is having multiple loose stools. On IV zosyn. She remains on clear liquid diet and would recommend advancing diet as tolerated. Patient requesting more solid food. Hemodynamically she is stable. Review of Systems Constitutional: Denied any fatigue denied any fever. Cardio vascular: denied any chest pain, palpitations Gastrointestinal: denied any nausea, vomiting, diarrhea Pulmonary: Denied any shortness of breath cough Neurologic denied any new focal deficits All inpatient medications were reviewed and appropriate changes in these medic ations as dictated in the interval history and assessment and plan. PHYSICAL EXAMINATION: GENERAL: The patient is alert and oriented x3, not in any acute distress. Well developed, well nourished. HEENT: Pupils are round and equally reacting to light. EOMI. No scleral icterus. No conjunctival pallor. Normocephalic, atraumatic. No pharyngeal erythema. No thyromegaly. CARDIOVASCULAR: S1 and S2 present. No murmurs, rubs, or gallops. PULMONARY: Chest is clear to auscultation, no wheezing or crackles. ABDOMEN: Soft, tender epigastric/periumbilical region, nondistended, normoactive bowel sounds. No palpable organomegaly. MUSCULOSKELETAL: No joint swelling or deformity. EXTREMITIES: No cyanosis, clubbing, or pedal edema. NEUROLOGICAL: Gross neurological examination did not reveal any focal deficits. SKIN: No rashes. Assessment and Plan -Abdominal pain secondary to small bowel obstruction; resolving. Patient is on clear liquid diet can advance as tolerated. Continue with pain management. -Hx of multiple abdominal surgeries. -Morbid obesity, BMI 37 -Peripheral vascular disease, stenting, on Brilinta and aspirin which have been resumed. -Diabetes mellitus type 2 controlled patient is continued on accuchecks ACHS and sliding scale insulin. -Hypertension resumed on lisinopril -Hyperlipidemia resumed on statin therapy GI prophylaxis DVT prophylaxis Full Code The impression and plan of care has been dictated by Tammy Weber, Nurse Practitioner as directed. Dr. Paul MD I have performed a history and physical examination and medical decision making of this patient, discussed the same with the dictator, and agree with the dictators assessment and plan as written, documented as a scribe. Based on total visit time, I have performed more than 50% of this visit. Objective - Vital Signs Vital signs: Vital Signs Temp 98.5 F 06/07/23 19:14 Pulse 83 06/07/23 19:14 Resp 16 06/07/23 20:05 BP 137/80 06/07/23 19:14 Pulse Ox 97 06/07/23 19:14 FiO2 Intake & Output 06/07/23 06/07/23 06/08/23 06:59 18:59 06:59 Intake Total 900 Balance 900 Intake: Intake, IV Titration 900 Amount Sodium Chloride 0.9% 1, 900 000 ml @ 75 mls/hr IV . [id number] [facility] Rx#:[id number] Other: Voiding Method Bedside Commode Bedside Commode # Voids - Labs CBC & Chem 7: 06/04/23 07:07 06/07/23 06:48 Labs: Abnormal Lab Results - Last 24 Hours (Table) 06/07/23 06/07/23 06/07/23 Range/Units 06:48 11:48 17:09 Carbon Dioxide 20.8 L (21.6-31.8) mmol/L Anion Gap 12.20 H (4.00-12.00) mmol/L BUN 4.4 L (9.0-27.0) mg/dL Creatinine 0.4 L (0.6-1.5) mg/dL BUN/Creatinine Ratio 11.00 L (12.00-20.00) Ratio POC Glucose (mg/dL) 215 H 210 H (70-110) mg/dL 06/07/23 Range/Units 20:16 Carbon Dioxide (21.6-31.8) mmol/L Anion Gap (4.00-12.00) mmol/L BUN (9.0-27.0) mg/dL Creatinine (0.6-1.5) mg/dL BUN/Creatinine Ratio (12.00-20.00) Ratio POC Glucose (mg/dL) 178 H (70-110) mg/dL Assessment and Plan Time with Patient: Less than 30
[2023-06-08 07:27] LABS: Glucose,Whole Blood 109 mg/dL (70-110)
[2023-06-08 09:26] VITALS: RESP 17
[2023-06-08 12:04] LABS: Glucose,Whole Blood 159 mg/dL (70-110)
[2023-06-08 13:31] VITALS: TEMP 98.2
--- NOTE | 2023-06-08 13:54 | P.PN ---
Subjective Progress Note Date: 06/08/23 CHIEF COMPLAINT: Abdominal pain HISTORY OF PRESENT ILLNESS: Patient reports she is feeling better. She is having bowel movements. Decreased abdominal pain. Tolerated the full liquids. Afebrile potassium 3.4 PHYSICAL EXAM: VITAL SIGNS: Reviewed GENERAL: Well-developed in no acute distress. HEENT: No sclera icterus. Extraocular movements grossly intact. Moist buccal mucosa. Head is atraumatic, normocephalic. Hears conversational speech. No nasal drainage. NECK: Supple without lymphadenopathy. CHEST: Non-labored respirations and equal bilateral excursions. CARDIOVASCULAR: Palpable 2+ radial pulses. ABDOMEN: Soft. Nondistended. Mild discomfort with palpation MUSCULOSKELETAL: No clubbing or cyanosis. NEUROLOGIC: No focal or lateralizing signs. Cranial nerves II through XII grossly intact. PSYCH: Appropriate affect. Alert and oriented to person, place and time. SKIN: Well perfused. Good skin turgor. ASSESSMENT: 1. Small bowel obstruction possibly due to adhesions resolved 2. Abdominal pain 3. Prior abdominal surgeries PLAN: -Advance diet to low fiber -Replace potassium -Improving with conservative management -Anticipate possible discharge tomorrow Physician [employer] Helper note has been reviewed by physician. Signing provider agrees with the documented findings, assessment, and plan of care. Objective - Vital Signs Vital signs: Vital Signs Temp 98.2 F 06/08/23 12:06 Pulse 58 L 06/08/23 12:06 Resp 17 06/08/23 12:06 BP 181/75 06/08/23 12:06 Pulse Ox 95 06/08/23 12:06 FiO2 Intake & Output 06/07/23 06/08/23 06/08/23 18:59 06:59 18:59 Intake Total 900 1600 Balance 900 1600 Weight 102.965 kg Intake: Intake, IV Titration 900 1000 Amount Piperacillin-Tazobactam 3 100 .375 gm In Sodium Chloride 0.9% 100 ml @ 25 mls/hr IVPB Q8H [facility] Rx#: [id number] Sodium Chloride 0.9% 1, 900 900 000 ml @ 75 mls/hr IV . [id number] [facility] Rx#:[id number] Oral 600 Other: Voiding Method Bedside Commode Bedside Commode # Voids 3 # Bowel Movements 1 - Labs CBC & Chem 7: 06/04/23 07:07 06/08/23 10:16 Labs: Abnormal Lab Results - Last 24 Hours (Table) 06/07/23 06/07/23 06/08/23 Range/Units 17:09 20:16 10:16 Potassium 3.4 L (3.5-5.1) mmol/L POC Glucose (mg/dL) 210 H 178 H (70-110) mg/dL 06/08/23 Range/Units 12:03 Potassium (3.5-5.1) mmol/L POC Glucose (mg/dL) 159 H (70-110) mg/dL Microbiology - Last 24 Hours (Table) 06/03/23 03:35 Blood Culture - Final Blood 06/03/23 03:15 Blood Culture - Final Blood
[2023-06-08] MEDS: POTASSIUM CHLORIDE ER 20 MEQ TAB.ER PO STA (14:46)
[2023-06-08 15:14] VITALS: BP 162/56; PULSE 84
--- NOTE | 2023-06-08 15:55 | P.DS ---
Providers Date of admission: 06/03/23 02:21 Expected date of discharge: 06/08/23 Attending physician: Jaison Brandon MD Consults: 06/03/23 02:19 Consult Physician Routine Consulting Provider: Chacha Mckenna Consult Reason/Comments: pt request for consult for SBO Do you want consulting provider notified?: Yes Primary care physician: Henny Kramer Hospital Course: Final Diagnoses: Small bowel obstruction suspect due to adhesions, in a patient with multiple abdominal surgeries, resolved with conservative management as per general surgery Morbid obesity, BMI 37 Peripheral vascular disease, stenting, on Brilinta Diabetes mellitus Hypertension Hyperlipidemia Hospital course:This a pleasant 52-year-old female past medical history significant for multiple abdominal surgeries including lysis of adhesions, hernia repair with mesh, diabetes mellitus, peripheral vascular disease on Brilinta, hypertension, hyperlipidemia and multiple other medical issues presented to the ER with complaints of abdominal pain that started last week accompanied by nausea and vomiting. Reports pain greatest around her midline abdominal scar, radiates to the right and further to her back. Last bowel movement reported Thursday or Thursday. CT reported multiple dilated small bowel loops, collapsed distal loops, may represent small bowel obstruction, transition appears somewhat gradual in the anterior midline abdomen and may be due to adhesions, small ventral hernia containing part of the bowel wall without discrete transition point at this site some mildly thickened small bowel loops and mesenteric edema in this area ischemic component not excluded. NG tube placed in the ED. general surgery on consult. Afebrile, WBC 13.2, hemoglobin 13.5, platelets 211, INR 0.9, electrolytes and renal function within normal limits. UA negative. Hyperglycemic, did not receive her diabetic med regimen last night in the ER. IV fluid hydration, IV Zosyn. n.p.o./bowel rest. NG tube-management as per general surgery. Pain management. PPI for GI prophylaxis. Significant clinical improvement. Tolerating diet advancement to full liquids. Positive bowel movements throughout the weekend, last 1 yesterday. Same flatus. Decreased diffuse tenderness. Denies nausea, vomiting. Afebrile. Ambulating, tolerating exertion well. Potassium level recheck ordered. Patient will be discharged home today in a stable condition with guarded prognosis pending final DC recommendations and clearance per general surgery. At discharge recommending probiotics and Gas-X. The impression and plan of care has been dictated as directed. : I performed a history and examination of this patient, discussed the same with the dictator. I agree with the dictator's note ,documented as a scribe. Any additional findings or plans will be noted. Patient Condition at Discharge: Stable Plan - Discharge Summary New Discharge Prescriptions: New Lactobacillus Acidophilus [Acidophilus Probiotic] 1 each PO BID #20 capsule Simethicone Chew [Mylicon Chew] 40 mg PO QID PRN tab PRN Reason: Bloating Continue Atorvastatin [Lipitor] 40 mg PO HS Insulin Aspart [NovoLOG Flexpen] See Protocol SQ TID-W/MEALS PRN #10 ml PRN Reason: Blood Sugar - High Aspirin 81 mg PO DAILY Melatonin 5 mg PO HS PRN PRN Reason: SLEEP Multivitamins, Thera [Multivitamin (formulary)] 1 tab PO DAILY Furosemide [Lasix] 20 mg PO DAILY Potassium Chloride ER [K-Dur 10] 10 meq PO DAILY Omeprazole 20 mg PO HS Morphine Sulfate ER [Ms Contin] 15 mg PO Q12H 30 Days #60 tab Loratadine [Claritin] 10 mg PO DAILY PRN PRN Reason: Allergy Symptoms Insulin Glargine,Hum.rec.anlog [Basaglar Kwikpen U-100] 26 unit SQ HS Cholecalciferol [Vitamin D3 (25 Mcg = 1000 Iu)] 25 mcg PO DAILY Cyclobenzaprine [Flexeril] 5 mg PO TID PRN 30 Days #90 tab PRN Reason: Muscle Spasm Ticagrelor [Brilinta] 90 mg PO BID-W/MEALS lisinopriL [Zestril] 10 mg PO DAILY Docusate [Colace] 100 mg PO BID HYDROcodone/APAP 7.5-325MG [[place] 7.5-325] 1 tab PO Q6H PRN 30 Days #120 tab PRN Reason: Pain Biotin [Ncad-Hvot-Qkfah] 10,000 mcg PO DAILY Calcium Carbonate [Calcium] 600 mg PO BID Discharge Medication List Atorvastatin [Lipitor] 40 mg PO HS 03/26/21 [History] Insulin Aspart [NovoLOG Flexpen] See Protocol SQ TID-W/MEALS PRN #10 ml 04/29/21 [Rx] Aspirin 81 mg PO DAILY 09/10/21 [History] Insulin Glargine,Hum.rec.anlog [Basaglar Kwikpen U-100] 26 unit SQ HS 04/22/22 [History] Loratadine [Claritin] 10 mg PO DAILY PRN 04/22/22 [History] Melatonin 5 mg PO HS PRN 04/22/22 [History] Multivitamins, Thera [Multivitamin (formulary)] 1 tab PO DAILY 07/23/22 [History] Cholecalciferol [Vitamin D3 (25 Mcg = 1000 Iu)] 25 mcg PO DAILY 08/20/22 [History] Cyclobenzaprine [Flexeril] 5 mg PO TID PRN 30 Days #90 tab 10/08/22 [Rx] Furosemide [Lasix] 20 mg PO DAILY 10/24/22 [History] Potassium Chloride ER [K-Dur 10] 10 meq PO DAILY 10/24/22 [History] Docusate [Colace] 100 mg PO BID 12/04/22 [History] Omeprazole 20 mg PO HS 12/04/22 [History] Ticagrelor [Brilinta] 90 mg PO BID-W/MEALS 12/04/22 [History] lisinopriL [Zestril] 10 mg PO DAILY 12/04/22 [History] HYDROcodone/APAP 7.5-325MG [[place] 7.5-325] 1 tab PO Q6H PRN 30 Days #120 tab 03/17/23 [Rx] Morphine Sulfate ER [Ms Contin] 15 mg PO Q12H 30 Days #60 tab 03/17/23 [Rx] Biotin [Uhec-Gmph-Mcexd] 10,000 mcg PO DAILY 06/03/23 [History] Calcium Carbonate [Calcium] 600 mg PO BID 06/03/23 [History] Lactobacillus Acidophilus [Acidophilus Probiotic] 1 each PO BID #20 capsule 06/08/23 [Rx] Simethicone Chew [Mylicon Chew] 40 mg PO QID PRN tab 06/08/23 [Rx] Follow up Appointment(s)/Referral(s): Jaison Brandon MD [STAFF PHYSICIAN] - 06/15/23 11:00 am (You will be seen in the [place] office with ana luisa who you normally see.) Patient Instructions/Handouts: Simethicone (By mouth), Probiotic (By mouth), Low Fiber Diet (DC), Bowel Obstruction (DC)
--- NOTE | 2023-06-16 14:50 | CDI ---
Documentation Clarification Form Date: 06/16/2023 02:30:54 PM From: Lindsay Robins RN, CCDS Email: [email or web address] Admit Date: 06/03/2023 02:21:00 AM Patient Name: Emely You Visit Number: [id number] Discharge Date: 06/08/2023 05:02:00 PM ATTENTION: The Clinical Documentation Specialists (CDI) and [facility] Coding Staff appreciate your assistance in clarifying documentation. Please respond to the clarification below the line at the bottom and electronically sign. The CDI & [facility] Coding staff will review the response and follow-up if needed. Please note: Queries are made part of the Legal Health Record. If you have any questions, please contact the author of this message via ITS. Dr. Jaison Brandon The patient had a small bowel obstruction, mild leukocytosis and tachycardia. Based on this information and the findings below, is there an additional diagnosis that is clinically appropriate for this patient? History/Risk Factors: obesity, HTN, DM, GERD, multiple abdominal surgeries and obstructions. Presented with abdominal pain. Admitted with small bowel obstruction. Clinical Indicators: 06/01 WBC 13.2 06/03 WBC 7.7 06/02 HR 105 06/[address] A/P: Multiple dilated small bowel loops with fluid and heterogeneous contents. Collapsed distal loops. May represent small bowel obstruction. ED: "Patient's laboratory studies remarkable for mild leukocytosis of 13.2." 06/04 Surgery: "Mildly tachycardic." 06/04 SBFT: Small bowel transit time of 1 hour 30 minutes is normal. If previous small bowel obstruction, this suggests interval resolution. Treatment: NGT; NPO; 1L 0.9 NS IV bolus x1 on 06/02; IV Zosyn 3.375gm Q8H 06/02-06/07 Is there an additional diagnosis that is clinically appropriate for this patient? [ X ] Non-infectious SIRS without organ dysfunction [ ] No additional diagnosis/not clinically significant [ ] Other, please specify [ ] Unable to determine SIRS Criteria: 2 or more of the following may indicate SIRS Temperature < 96.8F (36C) or > 101.0F (38.3C) Heart Rate > 90 bpm Respiratory Rate > 20 breaths/min or PaCO2 < 32 mmHg White Blood Cell Count > 12,000 or < 4,000 cells/mm3 or > 10% bands MTDD
== END 2023-06-08 17:02 | disposition home or self-care (01) | DRG 389 ==
LOC: EC 22:36 → 4SSUR 06-03 02:21 → 5NMEDONC 06-03 14:25 → 1SOBS 06-03 14:31 → 5NMEDONC 06-04 16:56
PROVIDERS: ADMIT Family Medicine; ATTEND Family Medicine
DX: K56.50 Intestinal adhesions [bands], unspecified as to partial versus complete obstruction (principal); R65.10 Systemic inflammatory response syndrome (SIRS) of non-infectious origin without acute organ dysfunction; E11.51 Type 2 diabetes mellitus with diabetic peripheral angiopathy without gangrene; E78.5 Hyperlipidemia, unspecified; I10 Essential (primary) hypertension; E66.01 Morbid (severe) obesity due to excess calories; F41.0 Panic disorder [episodic paroxysmal anxiety]; G40.909 Epilepsy, unspecified, not intractable, without status epilepticus; E11.65 Type 2 diabetes mellitus with hyperglycemia; Z68.37 Body mass index [BMI] 37.0-37.9, adult; Z79.02 Long term (current) use of antithrombotics/antiplatelets; Z79.82 Long term (current) use of aspirin; Z79.899 Other long term (current) drug therapy; Z79.4 Long term (current) use of insulin; Z87.442 Personal history of urinary calculi; Z90.710 Acquired absence of both cervix and uterus; Z87.891 Personal history of nicotine dependence; Z95.820 Peripheral vascular angioplasty status with implants and grafts
CPT/HCPCS: 36415; 74177; 74250; 80048; 80053; 81001; 82150; 83036; 83605; 83690; 83735; 84132; 85025; 85610; 85730; 87040; 93005; 96361; 96365; 96366; 96375; 96376; 99285

== ENCOUNTER → 2023-06-10 | Outpatient (CLI) | payer OTHER ==
[2023-06-10 12:18] VITALS: BP 138/78; PULSE 72; RESP 15; TEMP 98.6
--- NOTE | 2023-06-10 12:43 | P.PAINPG ---
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 Pt states she experienced % pain relief x 9 wks s/p procedure. Pain level is provoked at 6/10 in intensity, constant, localized in the mid to lower R lumbar spine, predominantly axial, tingling in character w occasional shooting towards the RLE. Pain is provoked by walking/ standing for periods of 10 min or more. Pain is alleviated with medications, topicals, heat, ice, PT in 2012 but stopped due to intractable pain, use of a cane for ambulatory assistance, reclining, repositioning and rest. Oswestry axial pain score of 28. Interventional pain procedures completed include YESSENIA T7-8 x1, BL RFA L3-L5 (Jun 2022), R TFESI L4-L5 x1 Patient is currently on MS ER 15mg #60, [place] 7.5/325mg #120, Lyrica 75mg #60, Flexeril, Lidoderm Patient denies any side effects of the medication(s), denies excessive drowsiness or sleepiness, denies suicidal ideation and reports that the current pain medication is helping to control the pain and improve activities of daily living. Patient denies any motor or sensory deficits. Patient denies any fever or night sweats, denies any change in the bowel movements or urination. Physical Examination: -Constitutional: Cooperative. Not in acute distress . - Neurologic: Cranial nerve II to XII intact. No focal neurological deficit s. - Psychatric: Alert & oriented x 3. Matching mood & appropriate affect. Judgment and insight intact. - Musculoskeletal: Cervical spine: Muscle bulk/ tone/ strength in the bilateral upper extremities normal Vertebral body tenderness to palpation over Spurling test positive Distraction test positive Facet loading test positive TTP Thoracic spine Muscle bulk / tone/ strength in the bilateral paraspinal muscles normal Vertebral body tender to palpation over Facet loading test positive TTP Lumbar spine: Motor bulk/ tone/ strength lower extremities , thigh and legs : 5/5 Deep tendon reflexes : Normal Knee Jerk. Normal Ankle Jerk . Vertebral body tenderness to palpation over L4 Lumbar Facet Loading Test positive Straight Leg Raise: positive at 30 degrees right side/ left side Gaenslen's Test positive Sacral spine : Severe tenderness over the Sacroiliac joint: right side / left side Range of motion: Flexion of the lumbar spine <60 degrees Range of motion: Extension of the lumbar spine <20 degrees Gaenslen's Test positive right side / left side Gato test: positive right side / left side Thigh Thrust Test positive right side / left side Sacral Thrust Test positive right side / left side Imaging: MRI noncontrast of the lumbar spine from 03/18/21 reviewed Assessment and plan: Chronic LBP secondary to lumbar DDD, spondylosis with facet arthropathy without myelopathy Recommendation of . Patient to need a series of injections for optimal pain relief. Risks, benefits of procedure discussed and patient verbalized understanding. Protocol for discontinuation/continuation of medications surrounding procedure discussed. Chronic and current use of high-risk medication (Opioids). The patient was counseled about risk of opioid use, psychological risk associated with opioids and was orally counseled to not overuse , divert or sell medications. Pt is to store medication in a safe location. The patient is counseled against driving while using narcotic medications and also not to use alcohol or any illicit recreational drugs. Patient verbalized understanding that the lack of compliance will result in failure to renew narcotic prescription(s) as well as possible discharge from the clinic Diagnoses, prognosis and treatment options including but not limited to physical therapy, surgical interventions, interventional therapies and medication management including narcotics and adjuvant medication were discussed. All patient questions answered MAPS reviewed and it was appropriate. S fr03/17/23 reviewed and consistent. Prescription refill for MS ER 15mg #60, [place] 7.5/325mg #120 w 1 RF I have spent less than 30 minutes on patient care today. Dr Ashton was available by phone for the evaluation of this patient. The time was used to review the medical records including relevant urine studies and Prescription history (MAPs), review of the available imaging, evaluation and examination of the patient, coordination of care with the medical staff and if applicable referring physicians, as well as creation of the medical record PQRS Narrative: Smoking Status Current every day smoker Narcotic Agreement Date Signed 04/23/22 Hx Alcohol Use (MH) Yes: RARE Home Medications: Ambulatory Orders Atorvastatin [Lipitor] 40 mg PO HS 03/26/21 Insulin Aspart [NovoLOG Flexpen] See Protocol SQ TID-W/MEALS PRN #10 ml 04/29/21 Aspirin 81 mg PO DAILY 09/10/21 Insulin Glargine,Hum.rec.anlog [Basaglar Kwikpen U-100] 26 unit SQ HS 04/22/22 Loratadine [Claritin] 10 mg PO DAILY PRN 04/22/22 Melatonin 5 mg PO HS PRN 04/22/22 Multivitamins, Thera [Multivitamin (formulary)] 1 tab PO DAILY 07/23/22 Cholecalciferol [Vitamin D3 (25 Mcg = 1000 Iu)] 25 mcg PO DAILY 08/20/22 Cyclobenzaprine [Flexeril] 5 mg PO TID PRN 30 Days #90 tab 10/08/22 Furosemide [Lasix] 20 mg PO DAILY 10/24/22 Potassium Chloride ER [K-Dur 10] 10 meq PO DAILY 10/24/22 Docusate [Colace] 100 mg PO BID 12/04/22 Omeprazole 20 mg PO HS 12/04/22 Ticagrelor [Brilinta] 90 mg PO BID-W/MEALS 12/04/22 lisinopriL [Zestril] 10 mg PO DAILY 12/04/22 Biotin [Nooo-Acxj-Tilxy] 10,000 mcg PO DAILY 06/03/23 Calcium Carbonate [Calcium] 600 mg PO BID 06/03/23 Lactobacillus Acidophilus [Acidophilus Probiotic] 1 each PO BID #20 capsule 06/08/23 Simethicone Chew [Mylicon Chew] 40 mg PO QID PRN tab 06/08/23 HYDROcodone/APAP 7.5-325MG [[place] 7.5-325] 1 tab PO Q6H PRN 30 Days #120 tab 06/10/23 HYDROcodone/APAP 7.5-325MG [[place] 7.5-325] 1 tab PO QID PRN 30 Days #120 tab 06/10/23 Morphine Sulfate ER [Ms Contin] 15 mg PO Q12H 30 Days #60 tab 06/10/23 Morphine Sulfate ER [Ms Contin] 15 mg PO Q12HR 30 Days #60 tab 06/10/23 Controlled Substance Measures - Controlled Substance Measures Is patient prescribed a controlled substance at discharge?: Yes When asked, does pt state using other controlled substances?: No If prescribed controlled substance>3 days was MAPS reviewed?: Yes
== END ==
LOC: PNWHC3 11:06
PROVIDERS: ATTEND Specialist
DX: M51.36 Other intervertebral disc degeneration, lumbar region (principal); M47.816 Spondylosis without myelopathy or radiculopathy, lumbar region; G89.29 Other chronic pain; F17.200 Nicotine dependence, unspecified, uncomplicated; Z79.891 Long term (current) use of opiate analgesic; Z79.82 Long term (current) use of aspirin; Z91.018 Allergy to other foods; Z88.8 Allergy status to other drugs, medicaments and biological substances
CPT/HCPCS: 99211

== ENCOUNTER → 2023-08-05 | Outpatient (CLI) | payer OTHER ==
[2023-08-05 12:09] VITALS: BP 154/89; PULSE 104; RESP 16
--- NOTE | 2023-08-05 15:50 | P.PAINPG ---
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 She would like less MS ER as she doesn't like how it makes her feel. Pain level is provoked at 6 /10 in intensity, constant, localized in the mid to lower R lumbar spine, predominantly axial, tingling in character w occasional shooting towards the RLE. Pain is provoked by walking/ standing for periods of 10 min or more. Pain is alleviated with medications, topicals, heat, ice, PT in 2012 but stopped due to intractable pain, use of a cane for ambulatory assistance, reclining, repositioning and rest . Oswestry axial pain score of 28. Interventional pain procedures completed include YESSENIA T7-8 x1, BL RFA L3-L5 (Jun 2022), R TFESI L4-L5 x1 Patient is currently on MS ER 15mg #60, [place] 7.5/325mg #120, Lyrica 75mg #60, Flexeril, Lidoderm Patient denies any side effects of the medication(s), denies excessive drowsiness or sleepiness, denies suicidal ideation and reports that the current pain medication is helping to control the pain and improve activities of daily living. Patient denies any motor or sensory deficits. Patient denies any fever or night sweats, denies any change in the bowel movements or urination. Physical Examination: -Constitutional: Cooperative. Not in acute distress . - Neurologic: Cranial nerve II to XII intact. No focal neurological deficits. - Psychatric: Alert & oriented x 3. Matching mood & appropriate affect. Judgment and insight intact. - Musculoskeletal: Cervical spine: Muscle bulk/ tone/ strength in the bilateral upper extremities normal Vertebral body tenderness to palpation over Spurling test positive Distraction test positive Facet loading test positive TTP Thoracic spine Muscle bulk / tone/ strength in the bilateral paraspinal muscles normal Vertebral body tender to palpation over Facet loading test positive TTP Lumbar spine: Motor bulk/ tone/ strength lower extremities , thigh and legs : 5/5 Deep tendon reflexes : Normal Knee Jerk. Normal Ankle Jerk . Vertebral body tenderness to palpation over L4 Lumbar Facet Loading Test positive Straight Leg Raise: positive at 30 degrees right side/ left side Gaenslen's Test positive Sacral spine : Severe tenderness over the Sacroiliac joint: right side / left side Range of motion: Flexion of the lumbar spine <60 degrees Range of motion: Extension of the lumbar spine <20 degrees Gaenslen's Test positive right side / left side Gato test: positive right side / left side Thigh Thrust Test positive right side / left side Sacral Thrust Test positive right side / left side Imaging: MRI noncontrast of the lumbar spine from 03/18/21 reviewed Assessment and plan: Chronic LBP secondary to lumbar DDD, spondylosis with facet arthropathy without myelopathy Chronic and current use of high-risk medication (Opioids). The patient was counseled about risk of opioid use, psychological risk associated with opioids and was orally counseled to not overuse , divert or sell medications. Pt is to store medication in a safe location. The patient is counseled against driving while using narcotic medications and also not to use alcohol or any illicit recreational drugs. Patient verbalized understanding that the lack of compliance will result in failure to renew narcotic prescription(s) as well as possible discharge from the clinic Diagnoses, prognosis and treatment options including but not limited to physical therapy, surgical interventions, interventional therapies and medication management including narcotics and adjuvant medication were discussed. All patient questions answered MAPS reviewed and it was appropriate. UDS collected 08/05/23. Prescription refill for MS ER 15mg #30, [place] 7.5/325mg #120, Flexeril w 1 RF I have spent less than 30 minutes on patient care today. Dr Ashton was available by phone for the evaluation of this patient. The time was used to revi ew the medical records including relevant urine studies and Prescription history (MAPs), review of the available imaging, evaluation and examination of the patient, coordination of care with the medical staff and if applicable referring physicians, as well as creation of the medical record PQRS Narrative: Smoking Status Current every day smoker Narcotic Agreement Date Signed 04/23/22 Hx Alcohol Use (MH) Yes: RARE Home Medications: Ambulatory Orders Atorvastatin [Lipitor] 40 mg PO HS 03/26/21 Insulin Aspart [NovoLOG Flexpen] See Protocol SQ TID-W/MEALS PRN #10 ml 04/29/21 Aspirin 81 mg PO DAILY 09/10/21 Insulin Glargine,Hum.rec.anlog [Basaglar Kwikpen U-100] 26 unit SQ HS 04/22/22 Loratadine [Claritin] 10 mg PO DAILY PRN 04/22/22 Melatonin 5 mg PO HS PRN 04/22/22 Multivitamins, Thera [Multivitamin (formulary)] 1 tab PO DAILY 07/23/22 Cholecalciferol [Vitamin D3 (25 Mcg = 1000 Iu)] 25 mcg PO DAILY 08/20/22 Furosemide [Lasix] 20 mg PO DAILY 10/24/22 Potassium Chloride ER [K-Dur 10] 10 meq PO DAILY 10/24/22 Docusate [Colace] 100 mg PO BID 12/04/22 Omeprazole 20 mg PO HS 12/04/22 Ticagrelor [Brilinta] 90 mg PO BID-W/MEALS 12/04/22 lisinopriL [Zestril] 10 mg PO DAILY 12/04/22 Biotin [Xhiz-Fskp-Flprj] 10,000 mcg PO DAILY 06/03/23 Calcium Carbonate [Calcium] 600 mg PO BID 06/03/23 Lactobacillus Acidophilus [Acidophilus Probiotic] 1 each PO BID #20 capsule 06/08/23 Simethicone Chew [Mylicon Chew] 40 mg PO QID PRN tab 06/08/23 Cyclobenzaprine [Flexeril] 5 mg PO TID PRN 30 Days #90 tab 08/05/23 HYDROcodone/APAP 7.5-325MG [[place] 7.5-325] 1 tab PO Q6H PRN 30 Days #120 tab 08/05/23 HYDROcodone/APAP 7.5-325MG [[place] 7.5-325] 1 tab PO QID PRN 30 Days #120 tab 08/05/23 Morphine Sulfate ER [Ms Contin] 15 mg PO DAILY 30 Days #30 tab 08/05/23 Morphine Sulfate ER [Ms Contin] 15 mg PO DAILY 30 Days #30 tab 08/05/23 Controlled Substance Measures - Controlled Substance Measures Is patient prescribed a controlled substance at discharge?: Yes When asked, does pt state using other controlled substances?: No If prescribed controlled substance>3 days was MAPS reviewed?: Yes
== END ==
LOC: PNWHC3 10:53
PROVIDERS: ATTEND Specialist
DX: M51.36 Other intervertebral disc degeneration, lumbar region (principal); M47.816 Spondylosis without myelopathy or radiculopathy, lumbar region; F17.200 Nicotine dependence, unspecified, uncomplicated; G89.29 Other chronic pain; Z79.891 Long term (current) use of opiate analgesic; Z91.018 Allergy to other foods; Z88.8 Allergy status to other drugs, medicaments and biological substances
CPT/HCPCS: 80307; G0463; 99211

== ENCOUNTER 2023-11-08 16:49 | Emergency (ER) | payer OTHER ==
[2023-11-08] MEDS ORDERED: ONDANSETRON 4 MG/2 ML VIAL ONE ×2 (18:47→20:41)
[2023-11-08] MEDS ORDERED: MORPHINE SULFATE 4 MG/ML SYRINGE ONE ×2 (18:47→20:41)
[2023-11-08] MEDS ORDERED: SODIUM CHLORIDE 0.9% 1,000 ML BAG ONE (18:50)
[2023-11-08] MEDS ORDERED: FAMOTIDINE 20 MG/2 ML VIAL ONE (20:42)
[2023-11-08] MEDS ORDERED: LIDOCAINE VISCOUS 2% 15 ML CUP ONE (21:27)
[2023-11-08] MEDS ORDERED: MAG HYDROX/AL HYDROX/SIMETH 30 ML CUP ONE (21:27)
[2023-11-08] MEDS ORDERED: HYOSCYAMINE ELIXIR 250 MCG/10 ML BTL ONE (21:27)
[2023-11-09] MEDS ORDERED: ONDANSETRON 4 MG/2 ML VIAL ONE (00:03)
[2023-11-09] MEDS ORDERED: MORPHINE SULFATE 4 MG/ML SYRINGE ONE (00:03)
--- NOTE | 2023-12-10 09:38 | CT ---
EXAM: CT Abdomen and Pelvis With Intravenous Contrast CLINICAL HISTORY: abdominal pain, hx umbilical hernia, constipation TECHNIQUE: Axial computed tomography images of the abdomen and pelvis with intravenous contrast. CTDI is 1780.7 mGym and DLP is 41.2 mGy-cm. This CT exam was performed using one or more of the following dose reduction techniques: automated exposure control, adjustment of the mA and/or kV according to patient size, and/or use of iterative reconstruction technique. COMPARISON: No relevant prior studies available. FINDINGS: ABDOMEN: Liver:Unremarkable. Gallbladder and bile ducts: Status post cholecystectomy. Pancreas:Unremarkable. Spleen:Unremarkable. Adrenals:Unremarkable. Kidneys and ureters:Unremarkable. No obstructing stones. No hydronephrosis. Stomach and bowel:A few mildly thick walled segments of small bowel within the ventral mid abdomen which could represent nonspecific enteritis. Normal stool burden. No obstruction. No inflammatory changes along the GI tract. PELVIS: Appendix:No findings to suggest acute appendicitis. Bladder:Unremarkable. Reproductive:Unremarkable as visualized. ABDOMEN and PELVIS: Intraperitoneal space:Unremarkable. No free air. No significant fluid collection. Bones/joints:No acute fracture. Soft tissues: Postsurgical changes from prior ventral hernia repair. Vasculature:Aortobiiliac atherosclerotic calcifications. Lymph nodes:Unremarkable. IMPRESSION: 1. Normal colonic stool burden. No obstruction. 2. A few mildly thick walled segments of small bowel within the ventral mid abdomen which could represent mild nonspecific enteritis. Radiologist: Werner Berumen MD Electronically Signed: 11/09/23 00:16 Study ready at 22:36 and initial results transmitted at 00:16 Results also transmitted to Film Room, Film Room @ [phone] (Fax MTDD
--- NOTE | 2023-12-14 19:18 | CT ---
[id number] TATYANA CLINTON : 1970 EXAM: CT abdomen pelvis without IV contrast. DATE: 11/09/2023 21:40 INDICATION: ABDOMINAL PAIN, BLOATING. COMPARISON: None, not linked in PACS. TECHNIQUE: CT abdomen pelvis without contrast., with axial imaging and sagittal and coronal reformats following the administration of oral contrast.. One or more CT dose reduction strategies were utilized during t his examination. Total DLP administered was 1309 mGycm. FINDINGS: LOWER CHEST: Unremarkable ABDOMEN LIVER: Unremarkable GALLBLADDER AND BILE DUCTS: Unremarkable. PANCREAS: Unremarkable. SPLEEN: Unremarkable. ADRENAL GLANDS: Unremarkable. KIDNEYS AND URETERS: No evidence of hydronephrosis or renal calculus. The ureters are unremarkable. PELVIS BLADDER: Unremarkable REPRODUCTIVE: The uterus is surgically absent. ABDOMEN & PELVIS STOMACH AND BOWEL: Oral contrast extends to the jejunum. There is a large amount stool in the colon p articularly the transverse colon. No evidence for bowel obstruction. The appendix is normal. PERITONEUM: No evidence of pneumoperitoneum or free fluid. VASCULATURE: Mild atherosclerotic calcifications are present throughout the abdominal aorta and its b ranches. MUSCULOSKELETAL: No acute osseous abnormalities LYMPH NODES: No gross evidence for lymphadenopathy. SOFT TISSUE/ABDOMINAL WALL: Postsurgical changes the anterior wall. Pelvis there is tiny fat-containi ng ventral wall hernias as well as undulating contour to the anterior wall with bowel closely adhered to the abdominal musculature. No evidence for obstruction. IMPRESSION: 1. No evidence for acute abdominal process. Oral contrast extends to the left upper quadrant jejunum . No evidence for obstructive uropathy or renal calculus. 2. Postsurgical changes to the anterior abdominal wall with small bowel closely adherent to the ante rior wall. 3. Moderate stool burden most pronounced in the transverse colon. 4. High density material in bladder possibly related to previous IV injection. [facility], Workstation: [employer] [id number], 12/14/2023 7:15 PM
--- NOTE | 2023-12-15 13:59 | XR ---
[id number] TATYANA CLINTON : 1970 EXAM: 2 radiograph views of the chest. DATE: 11/08/2023 18:20 INDICATION: C/O ABDOMINAL PAIN COMPARISON: None, please note PACS downtime occurred during the radiologist interpretation of these i mages with limited priors/reports. . TECHNIQUE: Frontal view of the chest. FINDINGS: Lungs/Pleura: There is no evidence of pleural effusion, focal consolidation, or pneumothorax. Pulmonary vascularity: Pulmonary vascular congestion. Heart/mediastinum: Cardiomediastinal silhouette is unremarkable. Musculoskeletal: No acute osseous pathology. Other findings: No significant findings. IMPRESSION: Mild pulmonary edema noted correlate serum BNP. [facility], , 12/15/2023 1:57 PM
== END 2023-11-09 00:43 | disposition home or self-care (01) ==
LOC: EC 16:49
DX: K52.9 Noninfective gastroenteritis and colitis, unspecified (principal)
CPT/HCPCS: 71046; 74176; 74177; 96361; 96374; 96375; 96376; 99284

== ENCOUNTER 2023-11-09 22:39 | Inpatient (IN) | payer MEDICARE, OTHER ==
[~2023-11-09 22:39] MED LIST changes: +FAMOTIDINE 20 MG/2 ML VIAL ONE; +HYDROmorphone 1 MG/ML 1 ML SYRINGE ONE; +HYOSCYAMINE ELIXIR 250 MCG/10 ML BTL ONE; -LACTATED RINGERS 1,000 ML IV SCH; +LIDOCAINE VISCOUS 2% 15 ML CUP ONE; +MAG HYDROX/AL HYDROX/SIMETH 30 ML CUP ONE; +ONDANSETRON 4 MG/2 ML VIAL ONE
[2023-11-10] MEDS ORDERED: HYDROmorphone 1 MG/ML 1 ML SYRINGE ONE ×6 (01:06→22:41)
[2023-11-10] MEDS ORDERED: ONDANSETRON 4 MG/2 ML VIAL ONE ×3 (01:07→12:14)
[2023-11-10] MEDS ORDERED: LORazepam 2 MG/ML INJ ONE ×2 (04:09→20:26)
[2023-11-10] MEDS ORDERED: PIOGLITAZONE 15 MG TAB ONE (08:00)
[2023-11-10] MEDS ORDERED: TICAGRELOR 90 MG TAB ONE (08:00)
[2023-11-10] MEDS ORDERED: LACTOBACILLUS ACIDOPHILUS/PECT 1 EACH CAPSULE PO ONE (08:02)
[2023-11-10] MEDS ORDERED: POTASSIUM CHLORIDE ER 10 MEQ TAB.ER.PRT PO ONE (08:02)
[2023-11-10] MEDS ORDERED: CHOLECALCIFEROL 25 MCG (1000 IU) TABLET ONE (08:03)
[2023-11-10] MEDS ORDERED: MULTIVITAMINS, THERA 1 EACH TAB ONE (08:03)
[2023-11-10] MEDS ORDERED: ASPIRIN 81 MG ONE (08:03)
[2023-11-10] MEDS ORDERED: DOCUSATE 100 MG CAP ONE ×2 (08:04→20:25)
[2023-11-10] MEDS ORDERED: SIMETHICONE 80 MG CHEWABLE ONE ×2 (08:04→21:44)
[2023-11-10] MEDS ORDERED: MORPHINE SULFATE ER 15 MG TABLET PO ONE (08:04)
[2023-11-10] MEDS ORDERED: FUROSEMIDE 20 MG TAB ONE (08:05)
[2023-11-10] MEDS ORDERED: ATORVASTATIN 10 MG TAB ONE (08:05)
[2023-11-10] MEDS ORDERED: lisinopriL 10 MG TAB ONE (08:05)
[2023-11-10] MEDS ORDERED: HYDROcodone/APAP 5-325MG 1 EACH TAB ONE ×2 (13:32→20:18)
[2023-11-10] MEDS ORDERED: ATORVASTATIN 40 MG TAB ONE (20:18)
[2023-11-10] MEDS ORDERED: polyethylene glycoL 3350 17 GM POWD.PACK ONE (20:24)
[2023-11-10] MEDS ORDERED: PANTOPRAZOLE 40 MG TABLET PO ONE (20:24)
[2023-11-11] MEDS ORDERED: HYDROmorphone 1 MG/ML 1 ML SYRINGE ONE ×6 (04:49→20:31)
[2023-11-11] MEDS ORDERED: ONDANSETRON 4 MG/2 ML VIAL ONE (07:57)
[2023-11-11] MEDS ORDERED: ASPIRIN 81 MG ONE (08:01)
[2023-11-11] MEDS ORDERED: CHOLECALCIFEROL 25 MCG (1000 IU) TABLET ONE (08:01)
[2023-11-11] MEDS ORDERED: POTASSIUM CHLORIDE ER 20 MEQ TAB.ER PO ONE (08:01)
[2023-11-11] MEDS ORDERED: MULTIVITAMINS, THERA 1 EACH TAB ONE (08:01)
[2023-11-11] MEDS ORDERED: POTASSIUM CHLORIDE ER 10 MEQ TAB.ER.PRT PO ONE (08:01)
[2023-11-11] MEDS ORDERED: lisinopriL 10 MG TAB ONE (08:02)
[2023-11-11] MEDS ORDERED: DOCUSATE 100 MG CAP ONE ×2 (08:02→20:29)
[2023-11-11] MEDS ORDERED: FUROSEMIDE 20 MG TAB ONE (08:02)
[2023-11-11] MEDS ORDERED: SIMETHICONE 80 MG CHEWABLE ONE ×2 (08:02→20:30)
[2023-11-11] MEDS ORDERED: MORPHINE SULFATE ER 15 MG TABLET PO ONE (08:02)
[2023-11-11] MEDS ORDERED: PIOGLITAZONE 15 MG TAB ONE (09:00)
[2023-11-11] MEDS ORDERED: SODIUM CHLORIDE 0.9% 1,000 ML BAG ONE (09:00)
[2023-11-11] MEDS ORDERED: TICAGRELOR 90 MG TAB ONE (09:00)
[2023-11-11] MEDS ORDERED: DICYCLOMINE 20 MG TAB ONE (14:24)
[2023-11-11] MEDS ORDERED: HEPARIN SODIUM,PORCINE 5,000 UNIT/ML 1 ML VIAL ONE (20:28)
[2023-11-11] MEDS ORDERED: polyethylene glycoL 3350 17 GM POWD.PACK ONE (20:29)
[2023-11-11] MEDS ORDERED: PANTOPRAZOLE 40 MG TABLET PO ONE (20:29)
[2023-11-11] MEDS ORDERED: DICYCLOMINE 10 MG CAP ONE (20:30)
[2023-11-11] MEDS ORDERED: ATORVASTATIN 10 MG TAB ONE (20:30)
[2023-11-11] MEDS ORDERED: SENNOSIDES 8.6 MG TAB ONE (20:30)
[2023-11-12] MEDS ORDERED: ONDANSETRON 4 MG/2 ML VIAL ONE ×3 (02:15→21:55)
[2023-11-12] MEDS ORDERED: HYDROmorphone 1 MG/ML 1 ML SYRINGE ONE ×2 (02:23→06:38)
[2023-11-12] MEDS ORDERED: LORazepam 2 MG/ML INJ ONE ×2 (06:34→23:13)
[2023-11-12] MEDS ORDERED: POTASSIUM CHLORIDE ER 10 MEQ TAB.ER.PRT PO ONE (07:58)
[2023-11-12] MEDS ORDERED: ASPIRIN 81 MG ONE (07:58)
[2023-11-12] MEDS ORDERED: LACTOBACILLUS ACIDOPHILUS/PECT 1 EACH CAPSULE PO ONE (07:58)
[2023-11-12] MEDS ORDERED: MULTIVITAMINS, THERA 1 EACH TAB ONE (07:58)
[2023-11-12] MEDS ORDERED: CHOLECALCIFEROL 25 MCG (1000 IU) TABLET ONE (07:58)
[2023-11-12] MEDS ORDERED: DOCUSATE 100 MG CAP ONE ×2 (07:59→21:57)
[2023-11-12] MEDS ORDERED: HEPARIN SODIUM,PORCINE 5,000 UNIT/ML 1 ML VIAL ONE ×2 (07:59→21:56)
[2023-11-12] MEDS ORDERED: FUROSEMIDE 20 MG TAB ONE (08:00)
[2023-11-12] MEDS ORDERED: MORPHINE SULFATE ER 15 MG TABLET PO ONE (08:00)
[2023-11-12] MEDS ORDERED: SIMETHICONE 80 MG CHEWABLE ONE ×2 (08:00→22:11)
[2023-11-12] MEDS ORDERED: HYDROcodone/APAP 5-325MG 1 EACH TAB ONE ×4 (08:00→21:57)
[2023-11-12] MEDS ORDERED: lisinopriL 10 MG TAB ONE (08:00)
[2023-11-12] MEDS ORDERED: TICAGRELOR 90 MG TAB ONE (09:00)
[2023-11-12] MEDS ORDERED: PIOGLITAZONE 15 MG TAB ONE (09:00)
[2023-11-12] MEDS ORDERED: INSULIN DETEMIR (LEVEMIR) 100 UNIT/ML SYR SQ ONE (09:00)
[2023-11-12] MEDS ORDERED: MAG HYDROX/AL HYDROX/SIMETH 30 ML CUP ONE (16:24)
[2023-11-12] MEDS ORDERED: SENNOSIDES-DOCUSATE SODIUM 1 EACH TAB PO ONE (21:56)
[2023-11-12] MEDS ORDERED: polyethylene glycoL 3350 17 GM POWD.PACK ONE (21:56)
[2023-11-12] MEDS ORDERED: ATORVASTATIN 10 MG TAB ONE (21:57)
[2023-11-12] MEDS ORDERED: PANTOPRAZOLE 40 MG TABLET PO ONE (23:13)
[2023-11-13] MEDS ORDERED: HYDROcodone/APAP 5-325MG 1 EACH TAB ONE ×5 (04:13→19:46)
[2023-11-13] MEDS ORDERED: ONDANSETRON 4 MG/2 ML VIAL ONE ×2 (06:32→18:48)
[2023-11-13] MEDS ORDERED: MULTIVITAMINS, THERA 1 EACH TAB ONE (07:59)
[2023-11-13] MEDS ORDERED: POTASSIUM CHLORIDE ER 10 MEQ TAB.ER.PRT PO ONE (07:59)
[2023-11-13] MEDS ORDERED: ASPIRIN 81 MG ONE (07:59)
[2023-11-13] MEDS ORDERED: LACTOBACILLUS ACIDOPHILUS/PECT 1 EACH CAPSULE PO ONE ×2 (07:59→10:30)
[2023-11-13] MEDS ORDERED: HEPARIN SODIUM,PORCINE 5,000 UNIT/ML 1 ML VIAL ONE ×2 (08:00→21:25)
[2023-11-13] MEDS ORDERED: CHOLECALCIFEROL 25 MCG (1000 IU) TABLET ONE (08:00)
[2023-11-13] MEDS ORDERED: DOCUSATE 100 MG CAP ONE (08:00)
[2023-11-13] MEDS ORDERED: SIMETHICONE 80 MG CHEWABLE ONE ×2 (08:01→22:01)
[2023-11-13] MEDS ORDERED: FUROSEMIDE 20 MG TAB ONE (08:01)
[2023-11-13] MEDS ORDERED: MORPHINE SULFATE ER 15 MG TABLET PO ONE (08:01)
[2023-11-13] MEDS ORDERED: lisinopriL 10 MG TAB ONE (08:01)
[2023-11-13] MEDS ORDERED: MAG HYDROX/AL HYDROX/SIMETH 30 ML CUP ONE ×2 (10:27→10:30)
[2023-11-13] MEDS ORDERED: INSULIN DETEMIR (LEVEMIR) 100 UNIT/ML SYR SQ ONE (10:30)
[2023-11-13] MEDS ORDERED: TICAGRELOR 90 MG TAB ONE (10:30)
[2023-11-13] MEDS ORDERED: PIOGLITAZONE 15 MG TAB ONE (10:30)
[2023-11-13] MEDS ORDERED: ATORVASTATIN 40 MG TAB ONE (21:25)
[2023-11-13] MEDS ORDERED: SENNOSIDES-DOCUSATE SODIUM 1 EACH TAB PO ONE (21:44)
[2023-11-13] MEDS ORDERED: PANTOPRAZOLE 40 MG TABLET PO ONE (21:48)
[2023-11-13] MEDS ORDERED: LORazepam 2 MG/ML INJ ONE (22:14)
[2023-11-14] MEDS ORDERED: HYDROcodone/APAP 5-325MG 1 EACH TAB ONE ×5 (01:58→21:44)
[2023-11-14] MEDS ORDERED: TICAGRELOR 90 MG TAB ONE (08:00)
[2023-11-14] MEDS ORDERED: LACTOBACILLUS ACIDOPHILUS/PECT 1 EACH CAPSULE PO ONE ×2 (08:00→08:28)
[2023-11-14] MEDS ORDERED: PIOGLITAZONE 15 MG TAB ONE (08:00)
[2023-11-14] MEDS ORDERED: POTASSIUM CHLORIDE ER 10 MEQ TAB.ER.PRT PO ONE (08:21)
[2023-11-14] MEDS ORDERED: MULTIVITAMINS, THERA 1 EACH TAB ONE (08:22)
[2023-11-14] MEDS ORDERED: ASPIRIN 81 MG ONE (08:22)
[2023-11-14] MEDS ORDERED: CHOLECALCIFEROL 25 MCG (1000 IU) TABLET ONE (08:22)
[2023-11-14] MEDS ORDERED: SIMETHICONE 80 MG CHEWABLE ONE ×2 (08:23→21:23)
[2023-11-14] MEDS ORDERED: MORPHINE SULFATE ER 15 MG TABLET PO ONE (08:23)
[2023-11-14] MEDS ORDERED: HEPARIN SODIUM,PORCINE 5,000 UNIT/ML 1 ML VIAL ONE ×2 (08:23→21:16)
[2023-11-14] MEDS ORDERED: DOCUSATE 100 MG CAP ONE ×3 (08:23→21:43)
[2023-11-14] MEDS ORDERED: lisinopriL 10 MG TAB ONE (08:24)
[2023-11-14] MEDS ORDERED: FUROSEMIDE 20 MG TAB ONE (08:24)
[2023-11-14] MEDS ORDERED: ONDANSETRON 4 MG/2 ML VIAL ONE ×2 (08:44→18:50)
[2023-11-14] MEDS ORDERED: HYDROmorphone 0.5 MG/0.5 ML SYRINGE ONE (12:04)
[2023-11-14] MEDS ORDERED: INSULIN ASPART (NovoLOG) 100 UNIT/ML VIAL SQ ONE ×3 (12:44→21:24)
[2023-11-14] MEDS ORDERED: LORazepam 2 MG/ML INJ ONE (21:13)
[2023-11-14] MEDS ORDERED: ATORVASTATIN 40 MG TAB ONE (21:14)
[2023-11-14] MEDS ORDERED: PANTOPRAZOLE 40 MG TABLET PO ONE (21:14)
[2023-11-14] MEDS ORDERED: SENNOSIDES-DOCUSATE SODIUM 1 EACH TAB PO ONE (21:16)
[2023-11-14] MEDS ORDERED: polyethylene glycoL 3350 17 GM POWD.PACK ONE (21:23)
[2023-11-15] MEDS ORDERED: HYDROcodone/APAP 5-325MG 1 EACH TAB ONE ×5 (04:35→22:56)
[2023-11-15] MEDS ORDERED: INSULIN DETEMIR (LEVEMIR) 100 UNIT/ML SYR SQ ONE (08:00)
[2023-11-15] MEDS ORDERED: TICAGRELOR 90 MG TAB ONE (08:00)
[2023-11-15] MEDS ORDERED: LACTOBACILLUS ACIDOPHILUS/PECT 1 EACH CAPSULE PO ONE ×2 (08:00→09:00)
[2023-11-15] MEDS ORDERED: SODIUM CHLORIDE 0.9% 1,000 ML BAG ONE (08:00)
[2023-11-15] MEDS ORDERED: INSULIN ASPART (NovoLOG) 100 UNIT/ML VIAL SQ ONE ×2 (08:00→23:25)
[2023-11-15] MEDS ORDERED: ONDANSETRON 4 MG/2 ML VIAL ONE ×2 (08:39→17:39)
[2023-11-15] MEDS ORDERED: POTASSIUM CHLORIDE ER 10 MEQ TAB.ER.PRT PO ONE (09:00)
[2023-11-15] MEDS ORDERED: CHOLECALCIFEROL 25 MCG (1000 IU) TABLET ONE (09:01)
[2023-11-15] MEDS ORDERED: MULTIVITAMINS, THERA 1 EACH TAB ONE (09:01)
[2023-11-15] MEDS ORDERED: ASPIRIN 81 MG ONE (09:01)
[2023-11-15] MEDS ORDERED: HEPARIN SODIUM,PORCINE 5,000 UNIT/ML 1 ML VIAL ONE ×2 (09:01→22:55)
[2023-11-15] MEDS ORDERED: polyethylene glycoL 3350 17 GM POWD.PACK ONE (09:01)
[2023-11-15] MEDS ORDERED: SIMETHICONE 80 MG CHEWABLE ONE ×3 (09:02→22:56)
[2023-11-15] MEDS ORDERED: DOCUSATE 100 MG CAP ONE ×2 (09:02→22:56)
[2023-11-15] MEDS ORDERED: lisinopriL 10 MG TAB ONE (09:02)
[2023-11-15] MEDS ORDERED: FUROSEMIDE 20 MG TAB ONE (09:02)
[2023-11-15] MEDS ORDERED: MORPHINE SULFATE ER 15 MG TABLET PO ONE (10:06)
[2023-11-15] MEDS ORDERED: DICYCLOMINE 20 MG TAB ONE (13:11)
[2023-11-15] MEDS ORDERED: CYCLOBENZAPRINE 10 MG TAB ONE (17:40)
[2023-11-15] MEDS ORDERED: ATORVASTATIN 40 MG TAB ONE (22:55)
[2023-11-15] MEDS ORDERED: PANTOPRAZOLE 40 MG TABLET PO ONE (22:56)
[2023-11-15] MEDS ORDERED: SENNOSIDES 8.6 MG TAB ONE (22:56)
[2023-11-15] MEDS ORDERED: LORazepam 2 MG/ML INJ ONE (23:25)
[2023-11-16] MEDS ORDERED: ONDANSETRON 4 MG/2 ML VIAL ONE ×4 (01:25→23:45)
[2023-11-16] MEDS ORDERED: DICYCLOMINE 20 MG TAB ONE (04:58)
[2023-11-16] MEDS ORDERED: INSULIN ASPART (NovoLOG) 100 UNIT/ML VIAL SQ ONE ×2 (07:00→08:00)
[2023-11-16] MEDS ORDERED: TICAGRELOR 90 MG TAB ONE ×2 (08:00)
[2023-11-16] MEDS ORDERED: PIOGLITAZONE 15 MG TAB ONE (08:00)
[2023-11-16] MEDS ORDERED: INSULIN DETEMIR (LEVEMIR) 100 UNIT/ML SYR SQ ONE (08:00)
[2023-11-16] MEDS ORDERED: POTASSIUM CHLORIDE ER 10 MEQ TAB.ER.PRT PO ONE (08:29)
[2023-11-16] MEDS ORDERED: CHOLECALCIFEROL 25 MCG (1000 IU) TABLET ONE (08:29)
[2023-11-16] MEDS ORDERED: MULTIVITAMINS, THERA 1 EACH TAB ONE (08:29)
[2023-11-16] MEDS ORDERED: ASPIRIN 81 MG ONE (08:29)
[2023-11-16] MEDS ORDERED: FUROSEMIDE 20 MG TAB ONE (08:30)
[2023-11-16] MEDS ORDERED: HEPARIN SODIUM,PORCINE 5,000 UNIT/ML 1 ML VIAL ONE ×2 (08:30→22:27)
[2023-11-16] MEDS ORDERED: lisinopriL 10 MG TAB ONE (08:30)
[2023-11-16] MEDS ORDERED: MORPHINE SULFATE ER 15 MG TABLET PO ONE (08:30)
[2023-11-16] MEDS ORDERED: SIMETHICONE 80 MG CHEWABLE ONE ×2 (14:14→22:28)
[2023-11-16] MEDS ORDERED: HYDROcodone/APAP 5-325MG 1 EACH TAB ONE (14:14)
[2023-11-16] MEDS ORDERED: DICYCLOMINE 10 MG CAP ONE (17:52)
[2023-11-16] MEDS ORDERED: LORazepam 2 MG/ML INJ ONE (22:26)
[2023-11-16] MEDS ORDERED: SENNOSIDES-DOCUSATE SODIUM 1 EACH TAB PO ONE (22:27)
[2023-11-16] MEDS ORDERED: DOCUSATE 100 MG CAP ONE (22:27)
[2023-11-16] MEDS ORDERED: ATORVASTATIN 40 MG TAB ONE (22:27)
[2023-11-16] MEDS ORDERED: PANTOPRAZOLE 40 MG TABLET PO ONE (22:50)
[2023-11-17] MEDS ORDERED: HYDROcodone/APAP 5-325MG 1 EACH TAB ONE ×5 (00:22→23:04)
[2023-11-17] MEDS ORDERED: ONDANSETRON 4 MG/2 ML VIAL ONE ×3 (06:39→23:05)
[2023-11-17] MEDS ORDERED: TICAGRELOR 90 MG TAB ONE (07:00)
[2023-11-17] MEDS ORDERED: INSULIN ASPART (NovoLOG) 100 UNIT/ML VIAL SQ ONE ×3 (07:00→21:05)
[2023-11-17] MEDS ORDERED: MULTIVITAMINS, THERA 1 EACH TAB ONE (08:55)
[2023-11-17] MEDS ORDERED: LACTOBACILLUS ACIDOPHILUS/PECT 1 EACH CAPSULE PO ONE (08:55)
[2023-11-17] MEDS ORDERED: POTASSIUM CHLORIDE ER 10 MEQ TAB.ER.PRT PO ONE (08:55)
[2023-11-17] MEDS ORDERED: PANTOPRAZOLE 40 MG TABLET PO ONE ×2 (08:56→21:03)
[2023-11-17] MEDS ORDERED: ASPIRIN 81 MG ONE (08:56)
[2023-11-17] MEDS ORDERED: polyethylene glycoL 3350 17 GM POWD.PACK ONE (08:56)
[2023-11-17] MEDS ORDERED: HEPARIN SODIUM,PORCINE 5,000 UNIT/ML 1 ML VIAL ONE ×2 (08:56→21:03)
[2023-11-17] MEDS ORDERED: CHOLECALCIFEROL 25 MCG (1000 IU) TABLET ONE (08:56)
[2023-11-17] MEDS ORDERED: MORPHINE SULFATE ER 15 MG TABLET PO ONE (08:57)
[2023-11-17] MEDS ORDERED: SIMETHICONE 80 MG CHEWABLE ONE ×2 (08:57→21:04)
[2023-11-17] MEDS ORDERED: DOCUSATE 100 MG CAP ONE ×2 (08:57→21:04)
[2023-11-17] MEDS ORDERED: lisinopriL 10 MG TAB ONE (08:58)
[2023-11-17] MEDS ORDERED: FUROSEMIDE 20 MG TAB ONE (08:58)
[2023-11-17] MEDS ORDERED: ATORVASTATIN 40 MG TAB ONE (21:02)
[2023-11-17] MEDS ORDERED: SENNOSIDES 8.6 MG TAB ONE (21:04)
[2023-11-17] MEDS ORDERED: LORazepam 2 MG/ML INJ ONE (21:06)
[2023-11-18] MEDS ORDERED: HYDROcodone/APAP 5-325MG 1 EACH TAB ONE ×2 (04:48→11:08)
[2023-11-18] MEDS ORDERED: ONDANSETRON 4 MG/2 ML VIAL ONE (06:33)
[2023-11-18] MEDS ORDERED: SIMETHICONE 80 MG CHEWABLE ONE (06:33)
[2023-11-18] MEDS ORDERED: INSULIN ASPART (NovoLOG) 100 UNIT/ML VIAL SQ ONE (06:34)
[2023-11-18] MEDS ORDERED: LACTOBACILLUS ACIDOPHILUS/PECT 1 EACH CAPSULE PO ONE ×2 (08:21→09:01)
[2023-11-18] MEDS ORDERED: POTASSIUM CHLORIDE ER 10 MEQ TAB.ER.PRT PO ONE (09:01)
[2023-11-18] MEDS ORDERED: polyethylene glycoL 3350 17 GM POWD.PACK ONE (09:02)
[2023-11-18] MEDS ORDERED: CHOLECALCIFEROL 25 MCG (1000 IU) TABLET ONE (09:02)
[2023-11-18] MEDS ORDERED: MULTIVITAMINS, THERA 1 EACH TAB ONE (09:02)
[2023-11-18] MEDS ORDERED: HEPARIN SODIUM,PORCINE 5,000 UNIT/ML 1 ML VIAL ONE (09:02)
[2023-11-18] MEDS ORDERED: ASPIRIN 81 MG ONE (09:02)
[2023-11-18] MEDS ORDERED: PANTOPRAZOLE 40 MG TABLET PO ONE (09:02)
[2023-11-18] MEDS ORDERED: FUROSEMIDE 40 MG TAB ONE (09:03)
[2023-11-18] MEDS ORDERED: MORPHINE SULFATE ER 15 MG TABLET PO ONE (09:03)
[2023-11-18] MEDS ORDERED: DOCUSATE 100 MG CAP ONE (09:03)
[2023-11-18] MEDS ORDERED: lisinopriL 10 MG TAB ONE (09:03)
[2023-11-18] MEDS ORDERED: FUROSEMIDE 20 MG TAB ONE (09:05)
--- NOTE | 2023-12-18 13:30 | FL ---
Emely You, ID: [id number] : 1970 EXAMINATION TYPE: FL small bowel follow through DATE OF EXAM: 11/16/2023 Clinical History: 53-year-old female with abdominal pain, follow-up small bowel obstruction COMPARISON: CT 06/03/2023 Total Fluoroscopy Time: 1 minute 9 seconds Total DAP: 20 mGycm2 16 images obtained. FINDINGS: Following administration of thin barium, serial films were carried out to 3 hours 20 minutes. Barium is seen to reach the colon. Loops of jejunum and ileum are compressed and examined under fluoroscopy. The small bowel loops have a normal-caliber. Mucosal pattern is within normal limits. No intrinsic o r extrinsic process is suspected. Cholecystectomy clips. Scattered surgical material related to prior bowel surgery. Vascular stents right iliac and upper right femoral. IMPRESSION: Small bowel transit time at the upper limits of the normal range at approximately 3 hours. No dilated loops or transition point to clearly indicate an obstruction.
== END 2023-11-18 14:50 | disposition home or self-care (01) | DRG 389 ==
LOC: 4SSUR 22:39
PROVIDERS: ADMIT Internal Medicine; ATTEND Internal Medicine
DX: K56.609 Unspecified intestinal obstruction, unspecified as to partial versus complete obstruction (principal); K43.0 Incisional hernia with obstruction, without gangrene; K56.699 Other intestinal obstruction unspecified as to partial versus complete obstruction; K59.03 Drug induced constipation; T40.2X5A Adverse effect of other opioids, initial encounter; F17.200 Nicotine dependence, unspecified, uncomplicated; E11.9 Type 2 diabetes mellitus without complications; I10 Essential (primary) hypertension; E66.9 Obesity, unspecified; M54.9 Dorsalgia, unspecified; Z88.6 Allergy status to analgesic agent; Z88.8 Allergy status to other drugs, medicaments and biological substances; Z79.4 Long term (current) use of insulin; Z79.899 Other long term (current) drug therapy; Z79.82 Long term (current) use of aspirin
CPT/HCPCS: 74250; 96374; 96375; 96376; 99285

== ENCOUNTER → 2024-05-24 | Outpatient (CLI) | payer MEDICARE, OTHER ==
--- NOTE | 2024-05-25 09:45 | XR ---
EXAMINATION TYPE: XR thoracic spine 2V DATE OF EXAM: 05/24/2024 5:53 PM COMPARISON: None. CLINICAL INDICATION: Female, 53 years old with history of M54.14, M54.16, pain TECHNIQUE: 3 view(s) obtained. FINDINGS: There are 12 thoracic type vertebral bodies. Pedicles are intact. Disc heights are preserved. Vertebr al body heights appear preserved. Scoliosis is present with the convexity to the left.. IMPRESSION: 1. Mild scoliosis with the convexity to the left [facility], , 05/25/2024 9:42 AM
--- NOTE | 2024-05-25 09:46 | XR ---
EXAMINATION TYPE: XR lumbar spine 2 or 3V DATE OF EXAM: 05/24/2024 5:53 PM COMPARISON: None. CLINICAL INDICATION: Female, 53 years old with history of M54.14, M54.16, pain TECHNIQUE: 3 view(s) obtained. FINDINGS: There are 5 lumbar-type vertebral bodies. Pedicles are intact. There is loss of disc height L4-5 with vacuum disc phenomenon. Narrowing of the L5-S1 disc height is present with some vacuum disc phenomenon. Very minimal vacuum disc phenomenon is present L3-4. Verteb ral body heights are preserved. Alignment is normal. IMPRESSION: 1. Degenerative disc changes L3-4 through L5-S1 with loss of disc height noted at L4-5 and L5-S1. [facility], , 05/25/2024 9:44 AM
--- NOTE | 2024-05-27 09:55 | MR ---
EXAMINATION TYPE: MR tspine/lspine wo con DATE OF EXAM: 05/24/2024 5:26 PM COMPARISON: None. CLINICAL INDICATION: Female, 53 years old with history of M54.14, M54.16, Back pain that travels from mid-back down right buttock and right leg since 2005 TECHNIQUE: Multiplanar, multiecho imaging on a 3.0 Mili magnet is performed through the thoracic spi ne. IV Contrast: mL (None, if empty) FINDINGS: Spinal cord maintains normal signal through its visualized course. Vertebral body alignment is normal. Vertebral body heights are preserved. Disc heights are preserved. Disc hydration levels are preserved. T8-9: There is central subligamentous disc herniation with mild anterior thecal sac compression. Clos e approximation the spinal cord. No cord deformity is present. No spinal canal stenosis is evident. No spinal canal stenosis is evident. IMPRESSION: 1. Subligamentous disc herniation T8-9 without cord contact or deformity. No stenosis. EXAMINATION TYPE: MR tspine/lspine wo con DATE OF EXAM: 05/24/2024 5:26 PM COMPARISON: None. CLINICAL INDICATION: Female, 53 years old with history of M54.14, M54.16, Back pain that travels from mid-back down right buttock and right leg since 2005 TECHNIQUE: Multiplanar, multisequence images of the lumbar spine were acquired. IV Contrast: mL (None, if empty) FINDINGS: Cord ends at the L1-L2 level. L5-S1: Disc desiccation is present. Some mild left paracentral disc bulge is present without thecal s ac contact. Facet hypertrophy is present greater on the left. Moderate left foraminal stenosis is pre sent. L4-L5: There is loss of disc height is normal. No focal disc herniation is evident. Previous small ce ntral protrusion with no spinal canal stenosis present. There may be some mild left paracentral theca l sac compression from the subligamentous disc herniation. Severe right foraminal narrowing is presen t. Correlate for right L5 radicular symptoms. L3-L4: Mild broad-based disc bulge is present with anterior thecal sac flattening. No AP spinal canal stenosis is present. Neural foramen are patent. L2-L3: No focal disc herniation or significant disc bulge. No spinal canal stenosis. Neural foramen are patent. L1-L2: No focal disc herniation or significant disc bulge. No spinal canal stenosis. Neural foramen are patent. T12-L1: No focal disc herniation or significant disc bulge. No spinal canal stenosis. Neural forame n are patent. IMPRESSION: 1. Small central subligamentous disc herniation L4-5 mild left paracentral thecal compression. No alex nosis present. 2. Severe right foraminal narrowing L4-5. Correlate for right L5 radicular symptoms. 3. Mild disc bulging with anterior thecal sac flattening at L3-4 and mild left paracentral disc bulgi ng L5-S1 without thecal sac compression [facility], , 05/27/2024 9:52 AM
== END | disposition home or self-care (01) ==
LOC: RADMRIMAIN 15:59
PROVIDERS: ATTEND Specialist
DX: M51.14 Intervertebral disc disorders with radiculopathy, thoracic region (principal); M51.16 Intervertebral disc disorders with radiculopathy, lumbar region; M47.27 Other spondylosis with radiculopathy, lumbosacral region; M41.84 Other forms of scoliosis, thoracic region; M99.73 Connective tissue and disc stenosis of intervertebral foramina of lumbar region
CPT/HCPCS: 72070; 72100; 72146; 72148

== ENCOUNTER → 2024-06-24 | Outpatient (CLI) | payer MEDICARE, OTHER ==
--- NOTE | 2024-06-30 13:44 | MM ---
Reason for Exam: Screening (asymptomatic). Last mammogram was performed 2 year(s) and 3 month(s) ago. Patient History: Menarche at age 8. First Full-Term at age 24. Left ovary removed at age 31. Right ovary removed at age 31. Hysterectomy at age 31. Postmenopausal. Mother had breast cancer, age 60. Risk Values: Alexia 5 year model risk: 2.5%. NCI Lifetime model risk: 16.9%. Prior Study Comparison: 01/11/2015 Bilateral [place] screening mammo w CAD - 2, [facility] [place] 01/14/2016 Bilateral MG screening mammo w CAD - 2, [facility] [place]. 03/18/2022 Bilateral MG screening mammo w CAD, [facility]. Tissue Density: The breasts are heterogeneously dense, which may obscure small masses. Findings: Analyzed By CAD. There is no suspicious group of microcalcifications or new suspicious mass in either breast. Overall Assessment: Benign, BI-RAD 2 Management: Screening Mammogram of both breasts in 1 year. . Patient should continue monthly self-breast exams. A clinical breast exam by your physician is recommended on an annual basis. This exam should not preclude additional follow-up of suspicious palpable abnormalities. Note on Alexia scores and lifetime risk: 1. A Alexia score greater than 3% is considered moderate risk. If this is the case, consider specialist referral to assess eligibility for a risk reducing agent. 2. If overall lifetime risk for the development of breast cancer is 20% or higher, the patient may qualify for future screening with alternating mammogram and breast MRI. [facility], , 06/24/2024 8:27 AM. Electronically signed and approved by: Raz Gomez M.D. Radiologis
== END | disposition home or self-care (01) ==
LOC: RADMAMWWP 08:08
PROVIDERS: ATTEND Family Medicine
DX: Z12.31 Encounter for screening mammogram for malignant neoplasm of breast (principal); R92.333 Mammographic heterogeneous density, bilateral breasts; Z78.0 Asymptomatic menopausal state; Z80.3 Family history of malignant neoplasm of breast
CPT/HCPCS: 77063; 77067

== ENCOUNTER → 2024-07-13 | Outpatient (CLI) | payer MEDICARE ==
[2024-07-13 11:42] VITALS: BP 158/84; PULSE 95; RESP 16; TEMP 98.2
--- NOTE | 2024-07-13 19:07 | P.PAINPG ---
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 Pain level is provoked at 6 /10 in intensity, constant, localized in the thoracol umbar spine, predominantly axial, tingling in character w occasional shooting towards the R hip and thigh. Pain is provoked by walking/ standing for periods of 10 min or more. Pain is alleviated with medications, topicals, heat, ice, physician guided home exercise regimen daily since early May 2024, use of a cane for ambulatory assistance, reclining, repositioning and rest. Has PT script and will start this week. Interventional pain procedures completed include YESSENIA T7-8 x1, BL RFA L3-L5 (Jun 2022), R TFESI L4-L5 x1 Patient is currently on MS ER 15mg #30, Birdsnest 7.5/325mg #120, Lyrica 75mg #60, Flexeril, Lidoderm Patient denies any side effects of the medication(s), denies excessive drowsiness or sleepiness, denies suicidal ideation and reports that the current pain medication is helping to control the pain and improve activities of daily living. Patient denies any motor or sensory deficits. Patient denies any fever or night sweats, denies any change in the bowel movements or urination. Physical Examination: -Constitutional: Cooperative. Not in acute distress . - Neurologic: Cranial nerve II to XII intact. No focal neurological deficits. - Psychatric: Alert & oriented x 3. Matching mood & appropriate affect. Judgment and insight intact. - Musculoskeletal: Cervical spine: Muscle bulk/ tone/ strength in the bilateral upper extremities normal Vertebral body tenderness to palpation over Spurling test positive Distraction test positive Facet loading test positive TTP Thoracic spine Muscle bulk / tone/ strength in the bilateral paraspinal muscles normal Vertebral body tender to palpation over T8 Facet loading test positive TTP Lumbar spine: Motor bulk/ tone/ strength lower extremities , thigh and legs : 5/5 Deep tendon reflexes : Normal Knee Jerk. Normal Ankle Jerk . Vertebral body tenderness to palpation over L5 Lumbar Facet Loading Test positive Straight Leg Raise: positive at 30 degrees right side> left side Gaenslen's Test positive Sacral spine : Severe tenderness over the Sacroiliac joint: right side / left side Range of motion: Flexion of the lumbar spine <60 degrees Range of motion: Extension of the lumbar spine <20 degrees Gaenslen's Test positive right side / left side Gato test: positive right side / left side Thigh Thrust Test positive right side / left side Sacral Thrust Test positive right side / left side Imaging: MRI non contrast of the lumbar spine from 03/18/21 reviewed MRI non contrast of the thoracic spine from Oct 2021 reviewed MRI noncontrast of the thoracolumbar spine from 05/24/2024 reviewed Assessment and plan: Chronic thoracolumbar secondary to T8-T9 radiculopathy, L3-L4/ L4-L5/ L5- S1 radiculopathy, spondylosis with facet arthropathy without myelopathy Recommendation of YESSENIA L5-S1 #1. Risks, benefits of procedure discussed and patient verbalized understanding. Protocol for discontinuation/continuation of medication surrounding procedure discussed. All questions answered. Chronic and current use of high-risk medication (Opioids). The patient was counseled about risk of opioid use, psychological risk associated with opioids and was orally counseled to not overuse , divert or sell medications. Pt is to store medication in a safe location. The patient is counseled against driving while using narcotic medications and also not to use alcohol or any illicit recreational drugs. Patient verbalized understanding that the lack of compliance will result in failure to renew narcotic prescription(s) as well as possible discharge from the clinic Diagnoses, prognosis and treatment options including but not limited to physical therapy, surgical interventions, interventional therapies and medication management including narcotics and adjuvant medication were discussed. Use, side effects, adverse reactions, safe storage discussed. All patient questions answered . Opiate/ narcotic agreement renewed 05/18/24. Birdsnest 7.5/325mg #90 w 1 RF. Add Zanaflex 4 mg #90 w 1 RF. Use, side effects, adverse reactions and safe storage discussed. MAPS reviewed and it was appropriate. UDS collected 07/13/24. I have spent less than 30 minutes on patient care today. Dr Ashton was available by phone for the evaluation of this patient. The time was used to review the medical records including relevant urine studies and Prescription history (MAPs), review of the available imaging, evaluation and examination of the patient, coordination of care with the medical staff and if applicable referring physicians, as well as creation of the medical record PQRS Narrative: Smoking Status Current every day smoker Narcotic Agreement Date Signed 04/23/22 Hx Alcohol Use (MH) Yes: RARE Home Medications: Ambulatory Orders Atorvastatin [Lipitor] 40 mg PO HS 03/26/21 Insulin Aspart [NovoLOG Flexpen] See Protocol SQ TID-W/MEALS PRN #10 ml 04/29/21 Aspirin 81 mg PO DAILY 09/10/21 Insulin Glargine,Hum.rec.anlog [Basaglar Kwikpen U-100] 26 unit SQ HS 04/22/22 Loratadine [Claritin] 10 mg PO DAILY PRN 04/22/22 Melatonin 5 mg PO HS PRN 04/22/22 Multivitamins, Thera [Multivitamin (formulary)] 1 tab PO DAILY 07/23/22 Cholecalciferol [Vitamin D3 (25 Mcg = 1000 Iu)] 25 mcg PO DAILY 08/20/22 Furosemide [Lasix] 20 mg PO DAILY 10/24/22 Potassium Chloride ER [K-Dur 10] 10 meq PO DAILY 10/24/22 Docusate [Colace] 100 mg PO BID 12/04/22 Omeprazole 20 mg PO HS 12/04/22 Ticagrelor [Brilinta] 90 mg PO BID-W/MEALS 12/04/22 lisinopriL [Zestril] 10 mg PO DAILY 12/04/22 Biotin [Fauo-Cmzd-Fsvrt] 10,000 mcg PO DAILY 06/03/23 Calcium Carbonate [Calcium] 600 mg PO BID 06/03/23 Lactobacillus Acidophilus [Acidophilus Probiotic] 1 each PO BID #20 capsule 06/08/23 Simethicone Chew [Mylicon Chew] 40 mg PO QID PRN tab 06/08/23 Cyclobenzaprine [Flexeril] 5 mg PO TID PRN 30 Days #90 tab 08/05/23 Morphine Sulfate ER [Ms Contin] 15 mg PO DAILY 30 Days #30 tab 08/05/23 Morphine Sulfate ER [Ms Contin] 15 mg PO DAILY 30 Days #30 tab 08/05/23 HYDROcodone/APAP 7.5-325MG [Birdsnest 7.5-325] 1 tab PO Q6H PRN 30 Days #120 tab 05/18/24 HYDROcodone/APAP 7.5-325MG [Birdsnest 7.5-325] 1 tab PO QID PRN 30 Days #120 tab 05/18/24 diazePAM [Valium] 5 mg PO DAILY 1 Days #2 tab 05/19/24 HYDROcodone/APAP 7.5-325MG [Birdsnest 7.5-325] 1 tab PO Q6HR PRN 23 Days #92 tab 05/25/24 Controlled Substance Measures - Controlled Substance Measures Is patient prescribed a controlled substance at discharge?: Yes When asked, does pt state using other controlled substances?: No If prescribed controlled substance>3 days was MAPS reviewed?: Yes
== END ==
LOC: PNWHC3 11:13
PROVIDERS: ATTEND Specialist
DX: M47.25 Other spondylosis with radiculopathy, thoracolumbar region (principal); M47.27 Other spondylosis with radiculopathy, lumbosacral region; F17.200 Nicotine dependence, unspecified, uncomplicated; Z91.018 Allergy to other foods; Z88.5 Allergy status to narcotic agent; Z88.6 Allergy status to analgesic agent; Z88.8 Allergy status to other drugs, medicaments and biological substances
CPT/HCPCS: 80307; G0463; 99212

== ENCOUNTER 2024-07-15 02:02 | Emergency (ER) | payer MEDICARE, OTHER ==
[2024-07-15 02:08] VITALS: RESP 18
[2024-07-15] MEDS: HYDROmorphone 1 MG/ML 1 ML SYRINGE IM STA (02:35)
[2024-07-15] MEDS: LIDOCAINE 4% PATCH TOPICAL ONE (02:36)
[2024-07-15] MEDS: ORPHENADRINE 30 MG/ML 2 ML VIAL IM STA (03:20)
[2024-07-15] MEDS: DEXAMETHASONE SOD PHOSPHATE 10 MG/ML 1 ML VIAL IM STA (03:21)
--- NOTE | 2024-07-15 03:31 | ED ---
Back Pain HPI - General Chief Complaint: Back Pain/Injury Stated Complaint: Back pain Time Seen by Provider: 07/15/24 02:13 Source: patient Limitations: no limitations - History of Present Illness Initial Comments: 54-year-old female history of chronic back pain presenting with chief complaint of lower back pain. No new injury or trauma. No loss of bowel or bladder control or saddle paresthesia. Pain travels down the right leg. Patient is currently in pain management. No abdominal pain. No urinary symptoms. No fever, chills, nausea, vomiting. Feels like flareups of chronic pain she has had in the past. - Related Data Home Medications Medication Instructions Recorded Confirmed Atorvastatin [Lipitor] 40 mg PO HS 03/26/21 08/05/23 Aspirin 81 mg PO DAILY 09/10/21 08/05/23 Insulin Glargine,Hum.rec.anlog 26 unit SQ HS 04/22/22 08/05/23 [Basaglar Kwikpen U-100] Loratadine [Claritin] 10 mg PO DAILY PRN 04/22/22 08/05/23 Melatonin 5 mg PO HS PRN 04/22/22 08/05/23 Multivitamins, Thera [Multivitamin 1 tab PO DAILY 07/23/22 08/05/23 (formulary)] Cholecalciferol [Vitamin D3 (25 25 mcg PO DAILY 08/20/22 08/05/23 Mcg = 1000 Iu)] Furosemide [Lasix] 20 mg PO DAILY 10/24/22 08/05/23 Potassium Chloride ER [K-Dur 10] 10 meq PO DAILY 10/24/22 08/05/23 Docusate [Colace] 100 mg PO BID 12/04/22 08/05/23 Omeprazole 20 mg PO HS 12/04/22 08/05/23 Ticagrelor [Brilinta] 90 mg PO BID-W/MEALS 12/04/22 08/05/23 lisinopriL [Zestril] 10 mg PO DAILY 12/04/22 08/05/23 Biotin [Cbxm-Qyye-Plgpz] 10,000 mcg PO DAILY 06/03/23 08/05/23 Calcium Carbonate [Calcium] 600 mg PO BID 06/03/23 08/05/23 Previous Rx's Medication Instructions Recorded Insulin Aspart [NovoLOG Flexpen] See Protocol SQ TID-W/MEALS PRN 04/29/21 #10 ml Lactobacillus Acidophilus 1 each PO BID #20 capsule 06/08/23 [Acidophilus Probiotic] Simethicone Chew [Mylicon Chew] 40 mg PO QID PRN tab 06/08/23 Morphine Sulfate ER [Ms Contin] 15 mg PO DAILY 30 Days #30 tab 08/05/23 Morphine Sulfate ER [Ms Contin] 15 mg PO DAILY 30 Days #30 tab 08/05/23 diazePAM [Valium] 5 mg PO DAILY 1 Days #2 tab 05/19/24 HYDROcodone/APAP 7.5-325MG [[place] 1 tab PO Q6H PRN 30 Days #120 tab 07/13/24 7.5-325] HYDROcodone/APAP 7.5-325MG [[place] 1 tab PO QID PRN 30 Days #120 tab 07/13/24 7.5-325] tiZANidine [Zanaflex] 4 mg PO Q8HR PRN 30 Days #90 tab 07/13/24 Allergies Allergy/AdvReac Type Severity Reaction Status Date / Time raspberry Allergy Severe throat Verified 07/15/24 02:08 swelling, buprenorphine [From Suboxone] Allergy Swelling Verified 07/15/24 02:08 gabapentin Allergy Swelling Verified 07/15/24 02:08 naloxone [From Suboxone] Allergy Swelling Verified 07/15/24 02:08 NSAIDS (Non-Steroidal Allergy Unknown Verified 07/15/24 02:08 Anti-Inflamma Childhood duloxetine [From Cymbalta] AdvReac Confusion/s Verified 07/15/24 02:08 eizures Review of Systems ROS Statement: Those systems with pertinent positive or pertinent negative responses have been documented in the HPI. ROS Other: All systems not noted in ROS Statement are negative. Past Medical History Past Medical History: Diabetes Mellitus, GERD/Reflux, Hyperlipidemia, Hypertension, Osteoarthritis (OA), Seizure Disorder Additional Past Medical History / Comment(s): Hx bowel obstruction, kidney stones. migraines, last seizure 2011-due to cymbalta, varicose veins, rt lower leg edema, abdominal hernia History of Any Multi-Drug Resistant Organisms: None Reported Date of last positivie culture/infection: 2012 MDRO Source:: stomach mesh Past Surgical History: Back Surgery, Bladder Surgery, Section, Cholecystectomy, Hernia Repair, Hysterectomy, Orthopedic Surgery, Tonsillectomy Additional Past Surgical History / Comment(s): Ablation of lumbar nerve, COLONOSCOPY. stent rt leg, hernia repair with mesh(mesh later removed due to infection), arthroscopy left knee, multiple procedures for lysis of adhesions Past Anesthesia/Blood Transfusion Reactions: No Reported Reaction Additional Past Anesthesia/Blood Transfusion Reaction / Comment(s): Claustrophobia. Date of Last Stent Placement:: 01/04/2021 Past Psychological History: Anxiety, Panic Disorder Smoking Status: Former smoker Past Alcohol Use History: None Reported Past Drug Use History: None Reported - Past Family History Mother Family Medical History: Cancer Additional Family Medical History / Comment(s): Mother had breast cancer Father Family Medical History: Cancer Additional Family Medical History / Comment(s): Father at 42 yrs of age from agent orange exposure. General Exam Limitations: no limitations General appearance: alert, in no apparent distress Head exam: Present: atraumatic, normocephalic, normal inspection Eye exam: Present: normal appearance, EOMI Neck exam: Present: normal inspection. Absent: meningismus Respiratory exam: Absent: respiratory distress Cardiovascular Exam: Present: regular rate Back exam: Present: normal inspection, tenderness Neurological exam: Present: alert, oriented X3 Psychiatric exam: Present: normal affect, normal mood Skin exam: Present: warm, dry, normal color Course Vital Signs 07/15/24 02:06 Temperature 97.5 F L Pulse Rate 95 Respiratory 18 Rate Blood Pressure 168/89 O2 Sat by Pulse 98 Oximetry Disposition Clinical Impression: Mechanical back pain Disposition: HOME SELF-CARE Condition: Good Instructions (If sedation given, give patient instructions): Acute Low Back Pain (ED) Additional Instructions: Follow-up with PCP. Report back to ER with any new or worsening symptoms. Is patient prescribed a controlled substance at d/c from ED?: No Referrals: Henny Kramer DO [Primary Care Provider] - 1-2 days Time of Disposition: 03:52
[2024-07-15 05:42] VITALS: BP 156/79; PULSE 83; TEMP 97.8
== END 2024-07-15 03:25 | disposition home or self-care (01) ==
LOC: EC 02:02
DX: M54.50 Low back pain, unspecified (principal); Z87.891 Personal history of nicotine dependence; Z88.1 Allergy status to other antibiotic agents; Z88.5 Allergy status to narcotic agent; Z88.6 Allergy status to analgesic agent; Z91.018 Allergy to other foods; Z88.8 Allergy status to other drugs, medicaments and biological substances
CPT/HCPCS: 99283; 96372; J1100; J2360; J1171

== ENCOUNTER 2024-08-03 08:07 | Day surgery (SDC) | payer MEDICARE, OTHER ==
[2024-08-02 09:50] VITALS: BMI 39.3
[2024-08-03 08:37] VITALS: TEMP 96
[2024-08-03] MEDS: IV FLUID CONTINUATION 1,000 ML IV ONE (08:37)
[2024-08-03] MEDS: LACTATED RINGERS 1,000 ML IV SCH (08:46)
[2024-08-03 09:11] LABS: Glucose,Whole Blood 136 mg/dL (70-110)
[2024-08-03] MEDS ORDERED: LIDOCAINE 1% INJ 10MG/ML (20 ML MDV) ONE (09:13)
[2024-08-03] MEDS ORDERED: fentaNYL (PF) 50 MCG/ML 2 ML AMP ONE (09:13)
[2024-08-03] MEDS ORDERED: PROPOFOL 10 MG/ML 20 ML VIAL IV ONE (09:13)
--- NOTE | 2024-08-03 09:35 | P.PCN ---
Date of Procedure: 08/03/24 Procedure(s) Performed: BRIEF HISTORY: Patient is a 54-year-old pleasant white female scheduled for an elective colonoscopy as a part of screening for colon cancer. PROCEDURE PERFORMED: Colonoscopy. PREOPERATIVE DIAGNOSIS: Screening for colon cancer. IV sedation per Anesthesia. PROCEDURE: After informed consent was obtained, the patient, was brought into the endoscopy unit. IV sedation was administered by Anesthesia under continuous monitoring. Digital rectal examination was normal. Initially the Olympus CF-160 flexible video colonoscope was then inserted in the rectum, gradually advanced into the cecum with extreme difficulty difficulty. Careful examination was performed as the scope was gradually being withdrawn. Ileocecal valve was visualized and appeared normal. Prep was excellent. Despite multiple attempts I was not able to advance the scope all the way into the base of the cecum but however the visualized portions of the cecum appeared normal. Mucosa of the cecum, ascending colon, transverse colon, descending colon, sigmoid colon, and rectum appeared normal. Retroflexion was performed in the rectum and no lesions were seen. The patient tolerated the procedure well. IMPRESSION: Normal-appearing colon from rectum to cecum with no evidence of colorectal neoplasia. RECOMMENDATIONS: Findings of this examination were discussed with the patient as well as her family.. She was advised to have repeat screening colonoscopy in 10 years for
[2024-08-03 10:05] VITALS: BP 116/69; PULSE 83; RESP 18
== END 2024-08-03 10:31 | disposition home or self-care (01) ==
LOC: ORWHC2ENDO 08:07
PROVIDERS: ATTEND Internal Medicine Gastroenterology
DX: Z12.11 Encounter for screening for malignant neoplasm of colon (principal); K21.9 Gastro-esophageal reflux disease without esophagitis; I10 Essential (primary) hypertension; E78.5 Hyperlipidemia, unspecified; Z79.899 Other long term (current) drug therapy; Z88.6 Allergy status to analgesic agent; Z88.8 Allergy status to other drugs, medicaments and biological substances
CPT/HCPCS: J2003; J3010; J2704; G0121

== ENCOUNTER → 2024-09-07 | Outpatient (CLI) | payer MEDICARE, OTHER ==
[2024-09-07 11:13] VITALS: BP 132/74; PULSE 94; RESP 18
--- NOTE | 2024-09-07 16:05 | P.PAINPG ---
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 Pain level is provoked at 6 /10 in intensity, constant, localized in the thoracol umbar spine, predominantly axial, tingling in character w occasional shooting towards the R hip and thigh. Pain is provoked by walking/ standing for periods of 10 min or more. Pain is alleviated with medications, topicals, heat, ice, physician guided home exercise regimen daily since early May 2024 (thoracolumbar), use of a cane for ambulatory assistance, reclining, repositioning and rest. Did not receive YESSENIA L5-S1 #1 as she did not receive clearance to stop Brillinta but will follow up w Dr Byrne on Oct 13 2024. Interventional pain procedures completed include YESSENIA T7-8 x1, BL RFA L3-L5 (Jun 2022), R TFESI L4-L5 x1 Patient is currently on [place] 7.5/325mg #120, Lyrica 75mg #60, Flexeril, Lidoderm 5% Patient denies any side effects of the medication(s), denies excessive drowsiness or sleepiness, denies suicidal ideation and reports that the current pain medication is helping to control the pain and improve activities of daily living. Patient denies any motor or sensory deficits. Patient denies any fever or night sweats, denies any change in the bowel movements or urination. Physical Examination: -Constitutional: Cooperative. Not in acute distress . - Neurologic: Cranial nerve II to XII intact. No focal neurological deficits. - Psychatric: Alert & oriented x 3. Matching mood & appropriate affect. Judgment and insight intact. - Musculoskeletal: Cervical spine: Muscle bulk/ tone/ strength in the bilateral upper extremities normal Vertebral body tenderness to palpation over Spurling test positive Distraction test positive Facet loading test positive TTP Thoracic spine Muscle bulk / tone/ strength in the bilateral paraspinal muscles normal Vertebral body tender to palpation over T8 Facet loading test positive TTP Lumbar spine: Motor bulk/ tone/ strength lower extremities , thigh and legs : 5/5 Deep tendon reflexes : Normal Knee Jerk. Normal Ankle Jerk . Vertebral body tenderness to palpation over L5 Lumbar Facet Loading Test positive Straight Leg Raise: positive at 30 degrees right side> left side Gaenslen's Test positive Sacral spine : Severe tenderness over the Sacroiliac joint: right side / left side Range of motion: Flexion of the lumbar spine <60 degrees Range of motion: Extension of the lumbar spine <20 degrees Gaenslen's Test positive right side / left side Gato test: positive right side / left side Thigh Thrust Test positive right side / left side Sacral Thrust Test positive right side / left side Imaging: MRI non contrast of the lumbar spine from 03/18/21 reviewed MRI non contrast of the thoracic spine from Oct 2021 reviewed MRI non contrast of the thoracolumbar spine from 05/24/2024 reviewed Assessment and plan: Chronic thoracolumbar secondary to T8-T9 radiculopathy, L3-L4/ L4-L5/ L5- S1 radiculopathy, spondylosis with facet arthropathy without myelopathy Recommendation of YESSENIA L5-S1 #1. Risks, benefits of procedure discussed and patient verbalized understanding. Protocol for discontinuation/continuation of medication surrounding procedure discussed. All questions answered. Chronic and current use of high-risk medication (Opioids). The patient was counseled about risk of opioid use, psychological risk associated with opioids and was orally counseled to not overuse , divert or sell medications. Pt is to store medication in a safe location. The patient is counseled against driving while using narcotic medications and also not to use alcohol or any illicit recreational drugs. Patient verbalized understanding that the lack of compliance will result in failure to renew narcotic prescription(s) as well as possible discharge from the clinic Diagnoses, prognosis and treatment options including but not limited to physical therapy, surgical interventions, interventional therapies and medication management including narcotics and adjuvant medication were discussed. Use, side effects, adverse reactions, safe storage discussed. All patient questions answered . Opiate/ narcotic agreement renewed 05/18/24. [place] 7.5/325mg #90, Lidoderm 5% #30 w RF. Use, side effects, adverse reactions and safe storage discussed. MAPS reviewed and it was appropriate. UDS from 07/13/24 reviewed and consistent. I have spent less than 30 minutes on patient care today. Dr Ashton was available by phone for the evaluation of this patient. The time was used to review the medical records including relevant urine studies and Prescription history (MAPs), review of the available imaging, evaluation and examination of the patient, coordination of care with the medical staff and if applicable referring physicians, as well as creation of the medical record - Pain Location Lower Medial Back Pharmacological Interventions: Medication, Topical Medication PQRS Narrative: Smoking Status Current every day smoker Narcotic Agreement Date Signed 04/23/22 Hx Alcohol Use (MH) Yes: RARE Home Medications: Ambulatory Orders Atorvastatin [Lipitor] 40 mg PO HS 03/26/21 Insulin Aspart [NovoLOG Flexpen] See Protocol SQ TID-W/MEALS PRN #10 ml 04/29/21 Aspirin 81 mg PO QAM 09/10/21 Insulin Glargine,Hum.rec.anlog [Basaglar Kwikpen U-100] 35 unit SQ HS 04/22/22 Loratadine [Claritin] 10 mg PO DAILY PRN 04/22/22 Melatonin 5 mg PO HS PRN 04/22/22 Multivitamins, Thera [Multivitamin (formulary)] 1 tab PO DAILY 07/23/22 Cholecalciferol [Vitamin D3 (25 Mcg = 1000 Iu)] 25 mcg PO QAM 08/20/22 Furosemide [Lasix] 20 mg PO QAM 10/24/22 Potassium Chloride ER [K-Dur 10] 10 meq PO QAM 10/24/22 Docusate [Colace] 100 mg PO BID 12/04/22 Omeprazole 20 mg PO HS 12/04/22 Ticagrelor [Brilinta] 90 mg PO BID-W/MEALS 12/04/22 lisinopriL [Zestril] 10 mg PO QAM 12/04/22 Calcium Carbonate [Calcium] 600 mg PO BID 06/03/23 Lactobacillus Acidophilus [Acidophilus Probiotic] 1 each PO BID #20 capsule 06/08/23 Simethicone Chew [Mylicon Chew] 40 mg PO QID PRN tab 06/08/23 tiZANidine [Zanaflex] 4 mg PO Q8HR PRN 30 Days #90 tab 07/13/24 Dulaglutide [Trulicity] 0.75 mg SQ FR 08/02/24 Pioglitazone HCl 15 mg PO QAM 08/02/24 HYDROcodone/APAP 7.5-325MG [[place] 7.5-325] 1 tab PO Q6H PRN 30 Days #120 tab 09/07/24 HYDROcodone/APAP 7.5-325MG [[place] 7.5-325] 1 tab PO QID PRN 30 Days #120 tab 09/07/24 Lidocaine 5% Patch [Lidoderm] 1 each TP DAILY 30 Days #30 patch 09/07/24 Controlled Substance Measures - Controlled Substance Measures Is patient prescribed a controlled substance at discharge?: Yes If prescribed controlled substance>3 days was MAPS reviewed?: Yes
== END ==
LOC: PNWHC3 10:55
PROVIDERS: ATTEND Specialist
DX: M47.25 Other spondylosis with radiculopathy, thoracolumbar region (principal); F17.200 Nicotine dependence, unspecified, uncomplicated; Z91.018 Allergy to other foods; Z88.5 Allergy status to narcotic agent; Z88.6 Allergy status to analgesic agent; Z88.8 Allergy status to other drugs, medicaments and biological substances
CPT/HCPCS: 99212